=== PATIENT | female | born 1935 | race Caucasian/White ===

== ENCOUNTER 2018-08-09 18:18 | Inpatient (IN) ==
[2018-08-09] MEDS ORDERED: CATAPRES TAB 0.1 MG ONE (18:34)
[2018-08-09] MEDS ORDERED: CATAPRES TAB 0.1 MG PO ONE (18:34)
--- NOTE | 2018-08-09 18:41 | DR.GENAD ---
HPI Time Seen Time Seen by Provider: 08/09/18 18:27 Complaint/Symptoms Chief Complaint Doctors Comments: Patient presents with mom to the ED with complaint of falling a lot, hitting her head, and injuring her back. Her blood pressure has been elevated. She has a history of cardiac stents x 2 and renal stent x1; 2012 and 2005 respectively placed in [place]. Source History Provided: Patient and Family Member Mode of Arrival Mode of Arrival: In [facility] PMH PMH Past Medical History: Coronary Artery Disease, Hypertension and Renal Disease Past Surgical History: Yes Surgical History: Angioplasty/Stents (2012) Social History Does patient currently use any type of tobacco product: No Have you used tobacco products in the last 12 months: No Do you use any recreational Drugs:: No Lives With: Family PE Vital Signs Vitals: Temperature 98.8 F Pulse Rate [Left Radial] 57 Pulse Rate 60 Respiratory Rate 13 Blood Pressure [Right Arm] 172/74 Blood Pressure 193/76 O2 Sat by Pulse Oximetry 95 General Limitations: Physical Limitation General Appearance: Alert and Anxious Head Head Exam: Normal Inspection, Atraumatic and Normocephalic Eyes Eye exam: Normal Appearance, PERRL and EOMI ENT ENT Exam: Normal Exam, Normal Oropharynx and Normal External Ear Exam External Ear Exam: Normal External Inspection and Auricular Hematoma TM/Canal Exam: Bilateral: Normal Nose Exam: Normal Nose Exam, Sinus Tenderness and Nasal Deviation Mouth Exam: Normal Inspection; negative Drooling Throat Exam: Normal Inspection Neck Neck Exam: Normal Inspection and Full ROM Chest Chest Inspection: Normal Inspection Respiratory Respiratory Exam: Normal Lung Sounds Bilat; negative Accessory Muscle Use Respiratory Exam: Bilateral: Clear to Auscultation Cardiovascular Cardiovascular Exam: Regular Rate and Normal Rhythm Abdominal Exam Abdominal Exam: Normal Inspection and Normal Bowel Sounds Abdominal Tenderness: negative RUQ, RLQ and LUQ Extremities Extremities Exam: Normal Inspection, Full ROM and Normal Capillary Refill; negative Edema Back Back Exam: Normal Inspection, Full ROM (decreased ROM), (R) CVA Tenderness, (L) CVA Tenderness and Vertebral Tenderness; negative Tenderness Psychiatric Psychiatric Exam: Normal Affect and Normal Mood Skin Skin Exam: Warm, Dry and Intact COURSE Treatment Treatment: Labetalol per protocol Consultation Called: 20:40 Consultation Comments: Dr. Hayes agreed to admit for further evaluation and treatment Education/Counseling Educated On: Treatment and Diagnosis ROR Labs Reviewed Laboratory Results Reviewed?: Yes Result Diagrams: 08/11/18 05:26 08/11/18 05:26 Laboratory: WBC 6.5 X10^3/uL (3.6-10.0) 08/11/18 05:26 RBC 3.44 X10^6/uL (3.5-5.4) L 08/11/18 05:26 Hgb 11.0 g/dL (12.0-16.0) L 08/11/18 05:26 Hct 30.8 % (36.0-47.0) L 08/11/18 05:26 MCV 89.4 fL (80.0-100.0) 08/11/18 05:26 MCH 32.1 pg (27.0-34.0) 08/11/18 05:26 MCHC 35.9 g/dL (33.0-35.0) H 08/11/18 05:26 RDW 13.0 % (11.6-16.5) 08/11/18 05:26 Plt Count 267 X10^3/uL (150.0-450.0) 08/11/18 05:26 MPV 8.4 fL (7.4-11.0) 08/11/18 05:26 Neut % (Auto) 58.9 % (42.0-75.0) 08/11/18 05:26 Lymph % (Auto) 30.0 % (21.0-51.0) 08/11/18 05:26 [place] % (Auto) 7.2 % (0.0-13.0) 08/11/18 05:26 Eos % (Auto) 3.2 % (0.9-2.9) H 08/11/18 05:26 Baso % (Auto) 0.7 % (0.2-1.0) 08/11/18 05:26 Neut # (Auto) 3.9 x10^3/uL (2.2-4.8) 08/11/18 05:26 Lymph # (Auto) 2.0 X10^3/uL (1.3-2.9) 08/11/18 05:26 [place] # (Auto) 0.5 x10^3/uL (0.3-0.8) 08/11/18 05:26 Eos # (Auto) 0.2 x10^3/uL (0.0-0.2) 08/11/18 05:26 Baso # (Auto) 0.0 X10^3/uL (0.0-0.1) 08/11/18 05:26 Absolute Nucleated RBC 0.0 /100WBC 08/11/18 05:26 Sodium 138 mmol/L (136-145) 08/11/18 05:26 Corrected Sodium 141 mmol/L (136-145) 08/11/18 05:26 Potassium 3.6 mmol/L (3.5-5.1) 08/11/18 05:26 Chloride 105 mmol/L (98-107) 08/11/18 05:26 Carbon Dioxide 18.5 mmol/L (21-32) L 08/11/18 05:26 BUN 13 mg/dL (7-18) 08/11/18 05:26 Creatinine 1.25 mg/dL (0.55-1.02) H 08/11/18 05:26 Est GFR (MDRD) Af Amer 53 (>60) L 08/11/18 05:26 Est GFR (MDRD) Non-Af 43 (>60) L 08/11/18 05:26 Glucose 230 mg/dL (65-99) H 08/11/18 05:26 POC Glucose (mg/dL) 261 mg/dL (65-99) H 08/11/18 06:02 Calcium 8.4 mg/dL (8.5-10.1) L 08/11/18 05:26 Corrected Calcium 9.6 mg/dL (8.5-10.1) 08/11/18 05:26 Magnesium 2.1 mg/dL (1.7-2.9) 08/11/18 05:26 Total Bilirubin 0.20 mg/dL (0.2-1.0) 08/11/18 05:26 AST 14 Units/L (15-37) L 08/11/18 05:26 ALT 23 Units/L (12-78) 08/11/18 05:26 Alkaline Phosphatase 63 Units/L (46-116) 08/11/18 05:26 Creatine Kinase 31 Units/L (26-192) 08/10/18 07:12 CK-MB (CK-2) < 1.0 ng/mL (0-4.0) 08/10/18 07:12 CK/CKMB % Calc 3.2 % (<4) 08/10/18 07:12 Troponin I < 0.02 ng/mL (0-1.5) 08/10/18 07:12 Total Protein 6.2 g/dL (6.4-8.2) L 08/11/18 05:26 Albumin 2.5 g/dL (3.4-5.0) L 08/11/18 05:26 Globulin 3.7 g/dL (2.5-4.5) 08/11/18 05:26 Albumin/Globulin Ratio 0.7 Ratio (1.1-2.1) L 08/11/18 05:26 Specimen Type Clean catch urine 08/09/18 19:12 Urine Color Yellow (YELLOW) 08/09/18 19:12 Urine Appearance Clear (CLEAR) 08/09/18 19:12 Urine pH 6.0 (5.0 - 8.0) 08/09/18 19:12 Ur Specific [place] 1.030 (1.000-1.030) 08/09/18 19:12 Urine Protein 4+ (NEGATIVE) 08/09/18 19:12 Urine Glucose (UA) 4+ (NEGATIVE) 08/09/18 19:12 Urine Ketones Negative (NEGATIVE) 08/09/18 19:12 Urine Occult Blood 1+ (NEGATIVE) 08/09/18 19:12 Urine Nitrite Negative (NEGATIVE) 08/09/18 19:12 Urine Bilirubin Negative (NEGATIVE) 08/09/18 19:12 Urine Urobilinogen Normal (NORMAL) 08/09/18 19:12 Ur Leukocyte Esterase Negative (NEGATIVE) 08/09/18 19:12 Urine RBC 0-2 /HPF (NONE SEEN) 08/09/18 19:12 Urine WBC 0-2 /HPF (NONE SEEN) 08/09/18 19:12 Ur Squamous Epith Cells Rare /HPF (NEGATIVE) 08/09/18 19:12 Amorphous Sediment Trace /HPF (NEGATIVE) 08/09/18 19:12 Urine Bacteria Negative /HPF (NEGATIVE) 08/09/18 19:12 Hyaline Casts Rare /LPF (NEGATIVE) 08/09/18 19:12 Ur Culture Indicated? No/not indicated 08/09/18 19:12 Other Results Comments: CT Brain w/o:Generalized age related atrophic changes are seen. However no evidence of intracranial hemorrhage, extracerebral fluid collections, or intracranial mass. Ventricles are symmetric in size and position with no mass effect seen. Patchy low density is present in a periventricular white matter distribution, consistent with chronic small vessel ischemia. On the bone windows, no acute abnormality is identified. Visualized aspect of the paranasal sinuses and mastoid air cells are clear.. No acute intracranial abnormality is seen on this exam. Portable Chest: Mild COPD is suspected. However no acute cardiopulmonary abnormality is identified on this exam. EKG Bland: Normal Hypertrophy: LAE and LVH (with secondary repolarization abnormality) ADDITIONAL NOTES Additional Notes Additional Notes: Patient admitted to hospital for further management and evaluation.
[2018-08-09] MEDS: NS 1000 ML 1,000 ML IV SCH (18:49)
[2018-08-09 18:58] LABS: BASOPHILS # (AUTO) 0.1 X10^3/uL (0.0-0.1); BASOPHILS % (AUTO) 1.4 % (0.2-1.0); EOSINOPHILS # (AUTO) 0.2 x10^3/uL (0.0-0.2); HEMATOCRIT 36.2 % (36.0-47.0); LYMPHOCYTES # (AUTO) 2.4 X10^3/uL (1.3-2.9); LYMPHOCYTES % (AUTO) 33.4 % (21.0-51.0); MEAN CORPUSCULAR HEMOGLOBIN 31.7 pg (27.0-34.0); MEAN CORPUSCULAR HGB CONC 35.9 g/dL (33.0-35.0); MEAN CORPUSCULAR VOLUME 88.4 fL (80.0-100.0); MONOCYTES # (AUTO) 0.7 x10^3/uL (0.3-0.8); MONOCYTES % (AUTO) 9.3 % (0.0-13.0); NEUTROPHILS # (AUTO) 3.8 x10^3/uL (2.2-4.8); NEUTROPHILS % (AUTO) 52.9 % (42.0-75.0); PLATELET COUNT 336 X10^3/uL (150.0-450.0); RED CELL DISTRIBUTION WIDTH 12.9 % (11.6-16.5); WHITE BLOOD COUNT 7.3 X10^3/uL (3.6-10.0)
--- NOTE | 2018-08-09 19:12 | CT ---
Exam: Head CT without contrast History: 82-year-old female with headache since a fall several days ago. Comparison: None Technique: Axial imaging was performed from the vertex to the base the skull without intravenous cont rast being administered. Sagittal and coronal reformations were generated. Automated exposure control techniques were used for this exam. Findings: Generalized age related atrophic changes are seen. However no evidence of intracranial hemo rrhage, extracerebral fluid collections, or intracranial mass. Ventricles are symmetric in size and p osition with no mass effect seen. Patchy low density is present in a periventricular white matter dis tribution, consistent with chronic small vessel ischemia. On the bone windows, no acute abnormality i s identified. Visualized aspect of the paranasal sinuses and mastoid air cells are clear. Impression: No acute intracranial abnormality is seen on this exam. Chronic changes as noted above Reported By:
[2018-08-09 19:16] LABS: CKMB % 2.1 % (<4); CREATINE KINASE 47 Units/L (26-192); CREATINE KINASE MB < 1.0 ng/mL (0-4.0); TROPONIN I < 0.02 ng/mL (0-1.5)
[2018-08-09] MEDS ORDERED: NORMODYNE INJ 100 MG VIAL ONE ×2 (19:24→20:24)
[2018-08-09 19:25] LABS: BILIRUBIN,URINE NEGATIVE (NEGATIVE); BLOOD/HEMOGLOBIN,URINE 1+ (NEGATIVE); GLUCOSE, URINE 4+ (NEGATIVE); KETONES,URINE NEGATIVE (NEGATIVE); LEUKOCYTE ESTERASE ,URINE NEGATIVE (NEGATIVE); NITRITES,URINE NEGATIVE (NEGATIVE); PROTEIN,URINE 4+ (NEGATIVE); UROBILINOGEN,URINE NORMAL (NORMAL)
[2018-08-09] MEDS: NORMODYNE INJ 20 MG VIAL IVP PRN ×2 (19:28→20:15)
[2018-08-09 19:34] LABS: APPEARANCE,URINE CLEAR (CLEAR); COLOR,URINE YELLOW (YELLOW)
[2018-08-09 19:36] LABS: RBC,URINE 0-2 /HPF (NONE SEEN)
[2018-08-09 19:37] LABS: AMORPHOUS SEDIMENT,UR TRACE /HPF (NEGATIVE); BACTERIA,URINE NEGATIVE /HPF (NEGATIVE); HYALINE CASTS, URINE RARE /LPF (NEGATIVE); SQUAMOUS EPITHELIAL CELL,UR RARE /HPF (NEGATIVE)
[2018-08-09] MEDS ORDERED: NS 250 ML IV 250 ML IV ONE (20:22)
[2018-08-09] MEDS: NORMODYNE INJ 100 MG VIAL 250 MG in NS 250 ML IV 200 ML IV PRN (20:34)
[2018-08-09] MEDS ORDERED: MORPHINE SULFATE INJ 2 MG INJ IVP PRN ×2 (20:42→21:00)
--- NOTE | 2018-08-09 20:45 | RAD ---
Exam: Portable chest History: 82-year-old female with hypertension and COPD Comparison: None Findings: Heart size and pulmonary vasculature are normal. Lungs are clear with no infiltrate or significant ef fusion on either side. Mild hyperinflation is present suggestive of underlying COPD. Bony thorax is u nremarkable. Impression: Mild COPD is suspected. However no acute cardiopulmonary abnormality is identified on this exam Reported By:
[2018-08-09] MEDS ORDERED: NORMODYNE INJ 20 MG VIAL IV PRN (20:58)
[2018-08-09 21:13] LABS: ALANINE AMINOTRANSFERASE 29 Units/L (12-78); ALBUMIN 3.5 g/dL (3.4-5.0); ALKALINE PHOSPHATASE 88 Units/L (46-116); ASPARTATE AMINO TRANSFERASE 18 Units/L (15-37); BLOOD UREA NITROGEN 20 mg/dL (7-18); CARBON DIOXIDE 23.5 mmol/L (21-32); CHLORIDE 97 mmol/L (98-107); COR NA(FOR HYPERGLY) 139 mmol/L (136-145); CREATININE 1.57 mg/dL (0.55-1.02); SODIUM 134 mmol/L (136-145); TOTAL PROTEIN 7.6 g/dL (6.4-8.2); eGFR NON BLACK RACES 33 (>60)
--- NOTE | 2018-08-09 21:41 | CT ---
CT lumbar spine without contrast Indication: Fall, back pain Comparison: None Technique: CT images of the lumbar spine were obtained without contrast. Automatic exposure control w as utilized. Findings: Generalized osteopenia. The lumbar spine alignment is normal. No significant vertebral body height loss or acute cortical disruption is identified. There is advanced discogenic degenerative di sease at L5-S1. No high-grade osseous spinal canal or neural foraminal narrowing is observed. There is small nonobstructing left renal calculus. Marked aortoiliac atherosclerosis with infrarenal aortic ectasia. Impression: No acute osseous abnormality of the lumbar spine. Degenerative changes at L5-S1. Generalized osteopenia. Nonobstructing left nephrolithiasis. Reported By:
[2018-08-09 22:52] VITALS: BMI 20.3
[2018-08-10] MEDS: NORMODYNE INJ 100 MG VIAL 250 MG in NS 250 ML IV 200 ML IV PRN ×5 (00:36→20:22)
[2018-08-10] MEDS: HumuLIN R SUBCUT PRN ×5 (00:38→21:22)
[2018-08-10 02:00] LABS: CKMB % 1.8 % (<4); CREATINE KINASE 57 Units/L (26-192); CREATINE KINASE MB < 1.0 ng/mL (0-4.0); TROPONIN I < 0.02 ng/mL (0-1.5)
[2018-08-10] MEDS: NS 1000 ML 1,000 ML IV SCH ×3 (05:15→23:00)
[2018-08-10 07:46] LABS: BASOPHILS % (AUTO) 0.7 % (0.2-1.0); EOSINOPHILS # (AUTO) 0.1 x10^3/uL (0.0-0.2); EOSINOPHILS % (AUTO) 2.4 % (0.9-2.9); HEMATOCRIT 31.2 % (36.0-47.0); HEMOGLOBIN 10.9 g/dL (12.0-16.0); LYMPHOCYTES % (AUTO) 33.5 % (21.0-51.0); MEAN CORPUSCULAR HEMOGLOBIN 31.2 pg (27.0-34.0); MEAN CORPUSCULAR HGB CONC 35.1 g/dL (33.0-35.0); MEAN CORPUSCULAR VOLUME 88.8 fL (80.0-100.0); MONOCYTES # (AUTO) 0.6 x10^3/uL (0.3-0.8); MONOCYTES % (AUTO) 10.1 % (0.0-13.0); NEUTROPHILS # (AUTO) 3.2 x10^3/uL (2.2-4.8); NEUTROPHILS % (AUTO) 53.3 % (42.0-75.0); PLATELET COUNT 269 X10^3/uL (150.0-450.0); RED BLOOD COUNT 3.51 X10^6/uL (3.5-5.4); RED CELL DISTRIBUTION WIDTH 12.7 % (11.6-16.5)
[2018-08-10 08:05] LABS: ALBUMIN 2.6 g/dL (3.4-5.0); CALCIUM 8.5 mg/dL (8.5-10.1); CARBON DIOXIDE 22.6 mmol/L (21-32); COR CA(FOR HYPOALB) 9.6 mg/dL (8.5-10.1); CREATININE 1.33 mg/dL (0.55-1.02); MAGNESIUM 1.4 mg/dL (1.7-2.9); TOTAL PROTEIN 5.8 g/dL (6.4-8.2)
[2018-08-10 08:07] LABS: CREATINE KINASE 31 Units/L (26-192); CREATINE KINASE MB < 1.0 ng/mL (0-4.0); TROPONIN I < 0.02 ng/mL (0-1.5)
[2018-08-10] MEDS ORDERED: POTASSIUM CHL 60 MEQ/NS 0.45% 500 ML IV PRN (08:09)
[2018-08-10] MEDS ORDERED: K-RIDER 10 MEQ/NS 100 ML 10 MEQ/100 ML BAG IV PRN (08:09)
[2018-08-10] MEDS ORDERED: POTASSIUM CHL 40 MEQ/NS 0.45% 500 ML IV PRN (08:09)
[2018-08-10] MEDS ORDERED: KLOR-CON PO PRN (08:09)
[2018-08-10] MEDS ORDERED: POTASSIUM CHLORIDE LIQ 20 MEQ UDC PO PRN (08:09)
[2018-08-10 08:11] LABS: CKMB % 3.2 % (<4)
[2018-08-10] MEDS ORDERED: NS 500 ML IV 500 ML IV ONE (09:16)
[2018-08-10] MEDS: NS 500 ML IV 500 ML IV SCH (09:23)
[2018-08-10] MEDS: MAGNESIUM SULFATE 1 GRAM/100 mL PREMIX 1 GM/100 ML BAG IV PRN ×4 (09:24→13:02)
[2018-08-10] MEDS: K-DUR TAB 20 MEQ PO PRN (09:34)
[2018-08-10 12:03] LABS: HEMATOCRIT 29.6 % (36.0-47.0); HEMOGLOBIN 10.6 g/dL (12.0-16.0)
[2018-08-10] MEDS: NORVASC TAB 5 MG PO SCH (15:08)
[2018-08-10] MEDS: COZAAR PO SCH (15:08)
[2018-08-10 17:56] LABS: HEMATOCRIT 31.7 % (36.0-47.0); HEMOGLOBIN 11.1 g/dL (12.0-16.0)
[2018-08-10] MEDS: SNACK - Diabetic Appropriate PO SCH (20:00)
[2018-08-10] MEDS: COREG TAB 6.25 MG PO SCH (21:22)
[2018-08-10] MEDS ORDERED: NORMODYNE INJ 100 MG VIAL ONE (23:40)
[2018-08-11] MEDS: NORMODYNE INJ 100 MG VIAL 250 MG in NS 250 ML IV 200 ML IV PRN ×3 (00:25→19:52)
[2018-08-11] MEDS ORDERED: NS 250 ML IV 250 ML IV ONE (05:29)
[2018-08-11 06:16] LABS: BASOPHILS % (AUTO) 0.7 % (0.2-1.0); EOSINOPHILS # (AUTO) 0.2 x10^3/uL (0.0-0.2); EOSINOPHILS % (AUTO) 3.2 % (0.9-2.9); HEMATOCRIT 30.8 % (36.0-47.0); MEAN CORPUSCULAR HEMOGLOBIN 32.1 pg (27.0-34.0); MEAN CORPUSCULAR HGB CONC 35.9 g/dL (33.0-35.0); MEAN CORPUSCULAR VOLUME 89.4 fL (80.0-100.0); MEAN PLATELET VOLUME 8.4 fL (7.4-11.0); MONOCYTES # (AUTO) 0.5 x10^3/uL (0.3-0.8); MONOCYTES % (AUTO) 7.2 % (0.0-13.0); NEUTROPHILS # (AUTO) 3.9 x10^3/uL (2.2-4.8); NEUTROPHILS % (AUTO) 58.9 % (42.0-75.0); PLATELET COUNT 267 X10^3/uL (150.0-450.0); RED BLOOD COUNT 3.44 X10^6/uL (3.5-5.4); WHITE BLOOD COUNT 6.5 X10^3/uL (3.6-10.0)
[2018-08-11 06:23] LABS: ALBUMIN 2.5 g/dL (3.4-5.0); CALCIUM 8.4 mg/dL (8.5-10.1); CARBON DIOXIDE 18.5 mmol/L (21-32); COR CA(FOR HYPOALB) 9.6 mg/dL (8.5-10.1); CREATININE 1.25 mg/dL (0.55-1.02); MAGNESIUM 2.1 mg/dL (1.7-2.9); TOTAL PROTEIN 6.2 g/dL (6.4-8.2)
[2018-08-11] MEDS: HumuLIN R SUBCUT PRN (06:23)
[2018-08-11] MEDS ORDERED: GLUCOPHAGE ONE ×2 (08:06→21:11)
[2018-08-11] MEDS: ELAVIL PO SCH (08:21)
[2018-08-11] MEDS: FOLIC ACID TAB 1 MG PO SCH (08:21)
[2018-08-11] MEDS: GLUCOPHAGE PO SCH ×2 (08:22→21:34)
[2018-08-11] MEDS: COREG TAB 6.25 MG PO SCH ×2 (08:22→21:34)
[2018-08-11] MEDS: GLUCOTROL PO SCH ×2 (08:22→21:33)
[2018-08-11] MEDS: ASPIRIN 81 MG CHEWTAB PO SCH (08:22)
[2018-08-11] MEDS: NexIUM PO SCH ×2 (08:22→21:34)
[2018-08-11] MEDS: COZAAR PO SCH (08:22)
[2018-08-11] MEDS: NORVASC TAB 5 MG PO SCH ×2 (08:23→11:13)
[2018-08-11] MEDS ORDERED: LANTUS SC SCH (09:00)
[2018-08-11] MEDS ORDERED: CATAPRES-TTS-1 TD SCH (10:00)
--- NOTE | 2018-08-11 10:52 | DR.H&P ---
H&P - History & Physical for Day of: H&P Date: 08/09/18 - Chief Complaint Chief Complaint: FALLS, WEAKNESS, HTN - History of Present Illness History of Present Illness: IS A 82 YEAR OLD PATIENT OF . SHE PRESENTED TO THE ER WITH COMPLAINTS OF FREQUENT FALLS. ON THE MOST RECENT FALL, DAUGHTER REPORTS HITTING HER HEAD AND INJURING HER LOWER BACK. FAMILY REPORTS THAT HER BLOOD PRESSURE HAS BEEN ELEVATED. PATIENT HAS A HISTORY OF CARDIAC STENTS X 2, CAD, HYPERTENSION, AND RENAL DISEASE. ON ARRIVAL, VITALS WERE 97.8-83-18-98%-213/101. LABS WERE OBTAINED. ABNORMAL LAB VALUES INCLUDE THE FOLLOWING: BUN 19, CREATININE 1.33, GLUCOSE 219, MAGNESIUM 1.4, TOTAL PROTEIN 5.8, ALBUMIN 2.6. A BRAIN CT WAS OBTAINED AND REVEALED: Generalized age related atrophic changes are seen. However no evidence of intracranial hemorrhage, ex tracerebral fluid collections, or intracranial mass. Ventricles are symmetric in size and position with no mass effect seen. Patchy low density is present in a periventricular white matter distribution, consistent with chronic small vessel ischemia. On the bone windows, no acute abnormality is identified. Visualized aspect of the paranasal sinuses and mastoid air cells are clear. CHEST XRAY REVEALED: Mild COPD is suspected. However no acute cardiopulmonary abnormality is identified on this exam. LUMBAR SPINE CT OBTAINED AND REVEALED: No acute osseous abnormality of the lumbar spine. Degenerative changes at L5-S1. Generalized osteopenia. Nonobstructing left nephrolithiasis. EKG REVEALED: SINUS RHYTHM WITH HR 78. SHE WAS STARTED ON A LABETALOL DRIP AND ADMITTED TO THE HOSPITAL FOR FURTHER EVALUATION AND TREATMENT. SHE WAS ALSO STARTED ON NORMAL SALINE AT 75ML/HR AND HUMULIN R SLIDING SCALE FOR CONTROL OF GLUCOSE LEVELS. OTHERWISE, WE PLAN TO FOLLOW UP WITH AM LABS AND CONTINUE TO MONITOR PATIENT. - Past Medical History Past Medical History: Coronary Artery Disease, Hypertension, Renal Disease - Past Surgical History Surgical History: Angioplasty/Stents (2012) - Family History Family Medical History: Diabetes Mellitus, Cancer - Social History Does patient currently use any type of tobacco product: No Have you used tobacco products in the last 12 months: No Type of Tobacco Use: None Does any household member use tobacco: Yes Alcohol Use: None Drug Use: None - Medications Home Medications: codeine Allergy (Verified 08/09/18 18:19) meperidine [From Demerol] Allergy (Verified 08/09/18 18:19) CONTINUE taking the following medications amitriptyline 10 mg PO DAILY 08/10/18 [History] aspirin 81 mg PO DAILY 08/10/18 [History] atorvastatin [Lipitor] 40 mg PO HS 08/10/18 [History] carvedilol 25 mg PO BID 08/10/18 [History] celecoxib [Celebrex] 200 mg PO DAILY 08/10/18 [History] esomeprazole magnesium [Nexium] 40 mg PO BID 08/10/18 [History] folic acid 1 mg PO DAILY 08/10/18 [History] glipizide 5 mg PO BID 08/10/18 [History] insulin glargine [Lantus U-100 Insulin] 45 units SUBCUT BID 08/10/18 [History] losartan 50 mg PO DAILY 08/10/18 [History] metformin [Glucophage] 1,000 mg PO BID 08/10/18 [History] - Review of Systems Constitutional: See HPI, Weakness Eyes: No Symptoms Reported ENT: No Symptoms Reported Respiratory: No Symptoms Reported Cardiovascular: Light Headedness Gastrointestinal: No Symptoms Reported Genitourinary: No Symptoms Reported Musculoskeletal: Back Pain (LOWER BACK PAIN ) Skin: Bruising (SCATTERED BRUISING ) Neurological: See HPI, Weakness - Physical Exam Vital Signs: Temperature 98.8 F Pulse Rate [Left Radial] 57 Pulse Rate 61 Respiratory Rate 17 Blood Pressure [Right Arm] 172/74 Blood Pressure 172/94 O2 Sat by Pulse Oximetry 97 Oriented: Normal Eyes: Normal Ear: Normal Nose: Normal Throat: Normal Respiratory: Diminished Throughout Cardiovascular: Normal. negative: S3, S4, Murmur : Normal Auscultation: Bowel Sounds: Normal Palpation: Normal Tenderness: Normal Skin: Bruising (SCATTERED BRUISING ) Musculoskeletal: Back:Lumbar, Tender Psychiatric: Normal Mood Description: Calm Affect: Normal Speech Pattern: Clear - Assessment/Plan (1) Hypertension Qualifiers: Hypertension type: essential hypertension Qualified Code(s): I10 - Essential (primary) hypertension Status: Acute Plan: LABETALOL DRIP, HEATING UNIT INSTALLER, NIBP MONITORING, CONTINUE TO MONITOR (2) Falls Qualifiers: Encounter type: initial encounter Qualified Code(s): W19.XXXA - Unspecified fall, initial encounter Status: Acute Plan: PT CONSULT, CONTINUE TO MONITOR (3) Diabetes Qualifiers: Diabetes mellitus type: type 2 Diabetes mellitus chcf insulin use: with terminal system operator use Diabetes mellitus complication status: with hyperglycemia Qualified Code(s): E11.65 - Type 2 diabetes mellitus with hyperglycemia; Z79.4 - care home (current) use of insulin Status: Acute Plan: HUMULIN R SLIDING SCALE, LANTUS 36 UNITS BID, GLUCATROL, GLUCOPHAGE, MONITOR OTBS - Allergies Allergies/Adverse Reactions: Allergies Allergy/AdvReac Type Severity Reaction Status Date / Time codeine Allergy Verified 08/09/18 18:19 meperidine [From Demerol] Allergy Verified 08/09/18 18:19
[2018-08-11] MEDS: LANTUS SC SCH ×2 (11:12→21:36)
[2018-08-11] MEDS: NS 500 ML IV 500 ML IV SCH (11:14)
[2018-08-11] MEDS: NS 1000 ML 1,000 ML IV SCH (13:00)
[2018-08-11] MEDS ORDERED: FLUVIRIN IM ONE (16:16)
[2018-08-11] MEDS ORDERED: PREVNAR 13 IM ONE (16:16)
[2018-08-11] MEDS: MICRO K EXTEN CAP 10 MEQ PO PRN (16:53)
[2018-08-11] MEDS: SNACK - Diabetic Appropriate PO SCH (20:00)
[2018-08-11] MEDS ORDERED: SNACK - Diabetic Appropriate PO SCH (20:00)
[2018-08-11] MEDS: LIPITOR TAB 40 MG PO SCH (21:34)
--- NOTE | 2018-08-11 21:38 | PCM.PROG ---
Progress Note - Progress Note for Day of Date of Exam: 08/10/18 - Subjective Subjective: WAS ADMITTED FOR HYPERTENSIVE URGENCY AND GENERALIZED WEAKNESS. TODAY, SHE IS ALERT AND ORIENTED, LYING IN BED ON MORNING ROUNDS. SHE CONTINUES WITH GENERALIZED WEAKNESS. SHE REMAINS ON A LABETALOL DRIP THIS MORNING. ON EXAMINATION, HEART IS REGULAR IN RATE AND RHYTHM. BILATERAL LUNGS ARE NOTED WITH DIMINISHED LUNG SOUNDS THROUGHOUT. ABDOMEN IS ROUND, SOFT, AND NON-TENDER WITH NORMAL BOWEL SOUNDS NOTED IN ALL QUADRANTS. HER VITLAS THIS MORNING ARE 97.0-60+-18-98%NC-183/72. LABS WERE OBTAINED. ABNORMAL LAB VALUES INCLUDE THE FOLLOWING: HGB 10.9, HCT 31.2, BUN 19, CREATININE 1.33, GLUCOSE 219, MAGNESIUM 1.4, TOTAL PROTEIN 5.8, ALBUMIN 2.6. TODAY, WE WILL START AMLODIPINE 5MG PO DAILY, COREG 6.25MG PO BID, AND LOSARTAN 100MG DAILY. OTHERWISE, WE WILL CONTINUE WITH CURRENT PLAN OF CARE. WE WILL CONTINUE TO MONITOR BLOOD GLUCOSE LEVELS AND REPLACE HER POTASSIUM WITH THE PROTOCOL. OTHERWISE, WE WILL FOLLOW UP WITH AM LABS AND CONTINUE TO MONITOR NIBP. - Past Medical Family Social History Past Med/Fam/Surg Hx: No changes since H&P Allergies: Allergies codeine Allergy (Verified 08/09/18 18:19) meperidine [From Demerol] Allergy (Verified 08/09/18 18:19) - Review of Systems ROS: No change since H&P - Vital Signs and I&O's Vital Signs: Temperature 99.5 F Pulse Rate [Left Radial] 57 Pulse Rate 64 Respiratory Rate 17 Blood Pressure [Right Arm] 172/74 Blood Pressure 162/73 O2 Sat by Pulse Oximetry 93 Intake and Output: Intake & Output 08/09/18 08/10/18 08/11/18 08/12/18 11:59 11:59 11:59 11:59 Intake Total 2102 / 2102 4423 / 4423 1544 / 1544 Output Total 450 / 450 800 / 800 400 / 400 Balance 1652 / 1652 3623 / 3623 1144 / 1144 - Physical Exam Oriented: Normal Eyes: Normal Ear: Normal Nose: Normal Throat: Normal Respiratory: Generalized, Diminished Cardiovascular: Normal. negative: S3, S4, Murmur : Normal Auscultation: Bowel Sounds: Normal Palpation: Normal Tenderness: Normal Skin: Bruising (SCATTERED BRUISING ) Musculoskeletal: Back:Lumbar, Tender Psychiatric: Normal Mood Description: Calm Affect: Normal Speech Pattern: Clear, Appropriate - Laboratory and Diagnostics Result Diagrams: 08/11/18 05:26 08/11/18 05:26 Labs: Laboratory WBC 6.5 X10^3/uL (3.6-10.0) 08/11/18 05:26 RBC 3.44 X10^6/uL (3.5-5.4) L 08/11/18 05:26 Hgb 11.0 g/dL (12.0-16.0) L 08/11/18 05:26 Hct 30.8 % (36.0-47.0) L 08/11/18 05:26 MCV 89.4 fL (80.0-100.0) 08/11/18 05:26 MCH 32.1 pg (27.0-34.0) 08/11/18 05:26 MCHC 35.9 g/dL (33.0-35.0) H 08/11/18 05:26 RDW 13.0 % (11.6-16.5) 08/11/18 05:26 Plt Count 267 X10^3/uL (150.0-450.0) 08/11/18 05:26 MPV 8.4 fL (7.4-11.0) 08/11/18 05:26 Neut % (Auto) 58.9 % (42.0-75.0) 08/11/18 05:26 Lymph % (Auto) 30.0 % (21.0-51.0) 08/11/18 05:26 [place] % (Auto) 7.2 % (0.0-13.0) 08/11/18 05:26 Eos % (Auto) 3.2 % (0.9-2.9) H 08/11/18 05:26 Baso % (Auto) 0.7 % (0.2-1.0) 08/11/18 05:26 Neut # (Auto) 3.9 x10^3/uL (2.2-4.8) 08/11/18 05:26 Lymph # (Auto) 2.0 X10^3/uL (1.3-2.9) 08/11/18 05:26 [place] # (Auto) 0.5 x10^3/uL (0.3-0.8) 08/11/18 05:26 Eos # (Auto) 0.2 x10^3/uL (0.0-0.2) 08/11/18 05:26 Baso # (Auto) 0.0 X10^3/uL (0.0-0.1) 08/11/18 05:26 Absolute Nucleated RBC 0.0 /100WBC 08/11/18 05:26 Sodium 138 mmol/L (136-145) 08/11/18 05:26 Corrected Sodium 141 mmol/L (136-145) 08/11/18 05:26 Potassium 3.6 mmol/L (3.5-5.1) 08/11/18 05:26 Chloride 105 mmol/L (98-107) 08/11/18 05:26 Carbon Dioxide 18.5 mmol/L (21-32) L 08/11/18 05:26 BUN 13 mg/dL (7-18) 08/11/18 05:26 Creatinine 1.25 mg/dL (0.55-1.02) H 08/11/18 05:26 Est GFR (MDRD) Af Amer 53 (>60) L 08/11/18 05:26 Est GFR (MDRD) Non-Af 43 (>60) L 08/11/18 05:26 Glucose 230 mg/dL (65-99) H 08/11/18 05:26 POC Glucose (mg/dL) 136 mg/dL (65-99) H 08/11/18 16:31 Calcium 8.4 mg/dL (8.5-10.1) L 08/11/18 05:26 Corrected Calcium 9.6 mg/dL (8.5-10.1) 08/11/18 05:26 Magnesium 2.1 mg/dL (1.7-2.9) 08/11/18 05:26 Total Bilirubin 0.20 mg/dL (0.2-1.0) 08/11/18 05:26 AST 14 Units/L (15-37) L 08/11/18 05:26 ALT 23 Units/L (12-78) 08/11/18 05:26 Alkaline Phosphatase 63 Units/L (46-116) 08/11/18 05:26 Creatine Kinase 31 Units/L (26-192) 08/10/18 07:12 CK-MB (CK-2) < 1.0 ng/mL (0-4.0) 08/10/18 07:12 CK/CKMB % Calc 3.2 % (<4) 08/10/18 07:12 Troponin I < 0.02 ng/mL (0-1.5) 08/10/18 07:12 Total Protein 6.2 g/dL (6.4-8.2) L 08/11/18 05:26 Albumin 2.5 g/dL (3.4-5.0) L 08/11/18 05:26 Globulin 3.7 g/dL (2.5-4.5) 08/11/18 05:26 Albumin/Globulin Ratio 0.7 Ratio (1.1-2.1) L 08/11/18 05:26 Specimen Type Clean catch urine 08/09/18 19:12 Urine Color Yellow (YELLOW) 08/09/18 19:12 Urine Appearance Clear (CLEAR) 08/09/18 19:12 Urine pH 6.0 (5.0 - 8.0) 08/09/18 19:12 Ur Specific [place] 1.030 (1.000-1.030) 08/09/18 19:12 Urine Protein 4+ (NEGATIVE) 08/09/18 19:12 Urine Glucose (UA) 4+ (NEGATIVE) 08/09/18 19:12 Urine Ketones Negative (NEGATIVE) 08/09/18 19:12 Urine Occult Blood 1+ (NEGATIVE) 08/09/18 19:12 Urine Nitrite Negative (NEGATIVE) 08/09/18 19:12 Urine Bilirubin Negative (NEGATIVE) 08/09/18 19:12 Urine Urobilinogen Normal (NORMAL) 08/09/18 19:12 Ur Leukocyte Esterase Negative (NEGATIVE) 08/09/18 19:12 Urine RBC 0-2 /HPF (NONE SEEN) 08/09/18 19:12 Urine WBC 0-2 /HPF (NONE SEEN) 08/09/18 19:12 Ur Squamous Epith Cells Rare /HPF (NEGATIVE) 08/09/18 19:12 Amorphous Sediment Trace /HPF (NEGATIVE) 08/09/18 19:12 Urine Bacteria Negative /HPF (NEGATIVE) 08/09/18 19:12 Hyaline Casts Rare /LPF (NEGATIVE) 08/09/18 19:12 Ur Culture Indicated? No/not indicated 08/09/18 19:12 - Plan (1) Hypertension Status: Acute Qualifiers: Hypertension type: essential hypertension Qualified Code(s): I10 - Essential (primary) hypertension Plan: AMLODIPINE 5MG PO DAILY, COREG 6.25MG PO BID, AND LOSARTAN 100MG DAILY, AIR/OCEAN EXPORT CLERK, NIBP MONITORING, CONTINUE TO MONITOR (2) Falls Status: Acute Qualifiers: Encounter type: initial encounter Qualified Code(s): W19.XXXA - Unspecified fall, initial encounter Plan: PT CONSULT, CONTINUE TO MONITOR (3) Diabetes Status: Acute Qualifiers: Diabetes mellitus type: type 2 Diabetes mellitus half-way insulin use: with vermin exterminator use Diabetes mellitus complication status: with hyperglycemia Qualified Code(s): E11.65 - Type 2 diabetes mellitus with hyperglycemia; Z79.4 - long term care social worker (current) use of insulin Plan: HUMULIN R SLIDING SCALE, LANTUS 36 UNITS BID, GLUCATROL, GLUCOPHAGE, MONITOR OTBS (4) Hypomagnesemia Status: Acute Plan: MAGNESIUM REPLACEMENT WITH PROTOCOL
[2018-08-12] MEDS: NS 1000 ML 1,000 ML IV SCH ×2 (03:00→18:20)
[2018-08-12 06:21] LABS: BASOPHILS # (AUTO) 0.1 X10^3/uL (0.0-0.1); BASOPHILS % (AUTO) 0.8 % (0.2-1.0); EOSINOPHILS # (AUTO) 0.2 x10^3/uL (0.0-0.2); HEMATOCRIT 28.7 % (36.0-47.0); HEMOGLOBIN 10.1 g/dL (12.0-16.0); LYMPHOCYTES % (AUTO) 27.3 % (21.0-51.0); MEAN CORPUSCULAR HEMOGLOBIN 31.6 pg (27.0-34.0); MEAN CORPUSCULAR HGB CONC 35.1 g/dL (33.0-35.0); MEAN CORPUSCULAR VOLUME 89.9 fL (80.0-100.0); MEAN PLATELET VOLUME 8.3 fL (7.4-11.0); MONOCYTES # (AUTO) 0.7 x10^3/uL (0.3-0.8); MONOCYTES % (AUTO) 9.3 % (0.0-13.0); NEUTROPHILS # (AUTO) 4.5 x10^3/uL (2.2-4.8); NEUTROPHILS % (AUTO) 59.6 % (42.0-75.0); PLATELET COUNT 245 X10^3/uL (150.0-450.0); RED BLOOD COUNT 3.19 X10^6/uL (3.5-5.4); RED CELL DISTRIBUTION WIDTH 13.3 % (11.6-16.5); WHITE BLOOD COUNT 7.5 X10^3/uL (3.6-10.0)
[2018-08-12 06:45] LABS: ALANINE AMINOTRANSFERASE 21 Units/L (12-78); ALBUMIN 2.3 g/dL (3.4-5.0); ALKALINE PHOSPHATASE 57 Units/L (46-116); ASPARTATE AMINO TRANSFERASE 14 Units/L (15-37); BLOOD UREA NITROGEN 8 mg/dL (7-18); CALCIUM 8.3 mg/dL (8.5-10.1); CARBON DIOXIDE 17.6 mmol/L (21-32); CHLORIDE 109 mmol/L (98-107); COR CA(FOR HYPOALB) 9.7 mg/dL (8.5-10.1); CREATININE 1.08 mg/dL (0.55-1.02); SODIUM 140 mmol/L (136-145); TOTAL PROTEIN 5.7 g/dL (6.4-8.2); eGFR NON BLACK RACES 51 (>60)
[2018-08-12] MEDS ORDERED: GLUCOPHAGE ONE ×2 (08:44→20:15)
[2018-08-12] MEDS: MICRO K EXTEN CAP 10 MEQ PO PRN (08:47)
[2018-08-12] MEDS: ELAVIL PO SCH (08:47)
[2018-08-12] MEDS: GLUCOPHAGE PO SCH ×2 (08:47→20:40)
[2018-08-12] MEDS: COZAAR PO SCH (08:48)
[2018-08-12] MEDS: ASPIRIN 81 MG CHEWTAB PO SCH (08:48)
[2018-08-12] MEDS: NexIUM PO SCH ×2 (08:48→20:40)
[2018-08-12] MEDS: FOLIC ACID TAB 1 MG PO SCH (08:48)
[2018-08-12] MEDS: COREG TAB 6.25 MG PO SCH ×2 (08:48→20:40)
[2018-08-12] MEDS: GLUCOTROL PO SCH ×2 (08:48→20:40)
[2018-08-12] MEDS: LANTUS SC SCH ×2 (08:49→21:01)
[2018-08-12] MEDS: NORVASC TAB 5 MG PO SCH (08:49)
[2018-08-12] MEDS: CHECK PATCH XX SCH ×2 (08:54→21:00)
[2018-08-12] MEDS ORDERED: CATAPRES-TTS-2 TD SCH (11:00)
[2018-08-12] MEDS: MAGNESIUM SULFATE 1 GRAM/100 mL PREMIX 1 GM/100 ML BAG IV PRN ×2 (20:40→22:00)
[2018-08-12] MEDS: LIPITOR TAB 40 MG PO SCH (20:40)
[2018-08-12] MEDS: SNACK - Diabetic Appropriate PO SCH (20:45)
[2018-08-12] MEDS: K-DUR TAB 20 MEQ PO PRN (20:47)
--- NOTE | 2018-08-12 21:33 | PCM.PROG ---
Progress Note - Progress Note for Day of Date of Exam: 08/11/18 - Subjective Subjective: WAS ADMITTED FOR HYPERTENSIVE URGENCY AND GENERALIZED WEAKNESS. TODAY, SHE IS ALERT AND ORIENTED, LYING IN BED ON MORNING ROUNDS. SHE CONTINUES WITH GENERALIZED WEAKNESS. THE LABETALOL DRIP WAS DISCONTINUED YESTERDAY AND SHE WAS STARTED ON ORAL HYPERTENSIVES. SHE HAS CONTINUED TO BE HYPERTENSIVE THROUGHOUT THE NIGHT. ON EXAMINATION, HEART IS REGULAR IN RATE AND RHYTHM. BILATERAL LUNGS ARE NOTED WITH DIMINISHED LUNG SOUNDS THROUGHOUT. ABDOMEN IS ROUND, SOFT, AND NON-TENDER WITH NORMAL BOWEL SOUNDS NOTED IN ALL QUADRANTS. HER VITLAS THIS MORNING ARE 97.0-64-24-97%-172/94. LABS WERE OBTAINED. ABNORMAL LAB VALUES INCLUDE THE FOLLOWING: RBC 3.44, HGB 11.0, HCT 30.8, CARBON DIXOIDE 18.5, CREATININE 1.25, GLUCOSE 230, CALCIUM 8.4, TOTAL PROTEIN 6.2, ALBUMIN 2.5. TODAY, WE WILL INCREASE AMLODIPINE TO 10MG PO DAILY AND ADD A CLONIDINE 0.1MG PATCH. OTHERWISE, WE WILL CONTINUE WITH CURRENT PLAN OF CARE. WE WILL FOLLOW UP WITH AM LABS AND CONTINUE TO MONITOR NIBP. - Past Medical Family Social History Past Med/Fam/Surg Hx: No changes since H&P Allergies: Allergies codeine Allergy (Verified 08/09/18 18:19) meperidine [From Demerol] Allergy (Verified 08/09/18 18:19) - Review of Systems ROS: No change since H&P - Vital Signs and I&O's Vital Signs: Temperature 98.5 F Pulse Rate [Left Radial] 57 Pulse Rate 69 Respiratory Rate 21 Blood Pressure [Right Arm] 172/74 Blood Pressure 160/71 O2 Sat by Pulse Oximetry 97 Intake and Output: Intake & Output 08/10/18 08/11/18 08/12/18 08/13/18 11:59 11:59 11:59 11:59 Intake Total 2102 / 2102 4423 / 4423 2992 / 2992 1760 / 1760 Output Total 450 / 450 800 / 800 900 / 900 Balance 1652 / 1652 3623 / 3623 2092 / 209 176 / 1760 - Physical Exam Oriented: Normal Eyes: Normal Ear: Normal Nose: Normal Throat: Normal Respiratory: Generalized, Diminished Cardiovascular: Normal. negative: S3, S4, Murmur : Normal Auscultation: Bowel Sounds: Normal Palpation: Normal Tenderness: Normal Skin: Bruising (SCATTERED BRUISING ) Musculoskeletal: Back:Lumbar, Tender Psychiatric: Normal Mood Description: Calm Affect: Normal Speech Pattern: Clear, Appropriate - Laboratory and Diagnostics Result Diagrams: 08/12/18 05:25 08/12/18 05:25 Labs: Laboratory WBC 7.5 X10^3/uL (3.6-10.0) 08/12/18 05:25 RBC 3.19 X10^6/uL (3.5-5.4) L 08/12/18 05:25 Hgb 10.1 g/dL (12.0-16.0) L 08/12/18 05:25 Hct 28.7 % (36.0-47.0) L 08/12/18 05:25 MCV 89.9 fL (80.0-100.0) 08/12/18 05:25 MCH 31.6 pg (27.0-34.0) 08/12/18 05:25 MCHC 35.1 g/dL (33.0-35.0) H 08/12/18 05:25 RDW 13.3 % (11.6-16.5) 08/12/18 05:25 Plt Count 245 X10^3/uL (150.0-450.0) 08/12/18 05:25 MPV 8.3 fL (7.4-11.0) 08/12/18 05:25 Neut % (Auto) 59.6 % (42.0-75.0) 08/12/18 05:25 Lymph % (Auto) 27.3 % (21.0-51.0) 08/12/18 05:25 [place] % (Auto) 9.3 % (0.0-13.0) 08/12/18 05:25 Eos % (Auto) 3.0 % (0.9-2.9) H 08/12/18 05:25 Baso % (Auto) 0.8 % (0.2-1.0) 08/12/18 05:25 Neut # (Auto) 4.5 x10^3/uL (2.2-4.8) 08/12/18 05:25 Lymph # (Auto) 2.0 X10^3/uL (1.3-2.9) 08/12/18 05:25 [place] # (Auto) 0.7 x10^3/uL (0.3-0.8) 08/12/18 05:25 Eos # (Auto) 0.2 x10^3/uL (0.0-0.2) 08/12/18 05:25 Baso # (Auto) 0.1 X10^3/uL (0.0-0.1) 08/12/18 05:25 Absolute Nucleated RBC 0.0 /100WBC 08/12/18 05:25 Sodium 140 mmol/L (136-145) 08/12/18 05:25 Corrected Sodium TNP 08/12/18 05:25 Potassium 3.6 mmol/L (3.5-5.1) 08/12/18 05:25 Chloride 109 mmol/L (98-107) H 08/12/18 05:25 Carbon Dioxide 17.6 mmol/L (21-32) L 08/12/18 05:25 BUN 8 mg/dL (7-18) 08/12/18 05:25 Creatinine 1.08 mg/dL (0.55-1.02) H 08/12/18 05:25 Est GFR (MDRD) Af Amer > 60 (>60) 08/12/18 05:25 Est GFR (MDRD) Non-Af 51 (>60) L 08/12/18 05:25 Glucose 98 mg/dL (65-99) 08/12/18 05:25 POC Glucose (mg/dL) 117 mg/dL (65-99) H 08/12/18 20:36 Calcium 8.3 mg/dL (8.5-10.1) L 08/12/18 05:25 Corrected Calcium 9.7 mg/dL (8.5-10.1) 08/12/18 05:25 Magnesium 1.5 mg/dL (1.7-2.9) L 08/12/18 05:25 Total Bilirubin 0.20 mg/dL (0.2-1.0) 08/12/18 05:25 AST 14 Units/L (15-37) L 08/12/18 05:25 ALT 21 Units/L (12-78) 08/12/18 05:25 Alkaline Phosphatase 57 Units/L (46-116) 08/12/18 05:25 Creatine Kinase 31 Units/L (26-192) 08/10/18 07:12 CK-MB (CK-2) < 1.0 ng/mL (0-4.0) 08/10/18 07:12 CK/CKMB % Calc 3.2 % (<4) 08/10/18 07:12 Troponin I < 0.02 ng/mL (0-1.5) 08/10/18 07:12 Total Protein 5.7 g/dL (6.4-8.2) L 08/12/18 05:25 Albumin 2.3 g/dL (3.4-5.0) L 08/12/18 05:25 Globulin 3.4 g/dL (2.5-4.5) 08/12/18 05:25 Albumin/Globulin Ratio 0.7 Ratio (1.1-2.1) L 08/12/18 05:25 Specimen Type Clean catch urine 08/09/18 19:12 Urine Color Yellow (YELLOW) 08/09/18 19:12 Urine Appearance Clear (CLEAR) 08/09/18 19:12 Urine pH 6.0 (5.0 - 8.0) 08/09/18 19:12 Ur Specific [place] 1.030 (1.000-1.030) 08/09/18 19:12 Urine Protein 4+ (NEGATIVE) 08/09/18 19:12 Urine Glucose (UA) 4+ (NEGATIVE) 08/09/18 19:12 Urine Ketones Negative (NEGATIVE) 08/09/18 19:12 Urine Occult Blood 1+ (NEGATIVE) 08/09/18 19:12 Urine Nitrite Negative (NEGATIVE) 08/09/18 19:12 Urine Bilirubin Negative (NEGATIVE) 08/09/18 19:12 Urine Urobilinogen Normal (NORMAL) 08/09/18 19:12 Ur Leukocyte Esterase Negative (NEGATIVE) 08/09/18 19:12 Urine RBC 0-2 /HPF (NONE SEEN) 08/09/18 19:12 Urine WBC 0-2 /HPF (NONE SEEN) 08/09/18 19:12 Ur Squamous Epith Cells Rare /HPF (NEGATIVE) 08/09/18 19:12 Amorphous Sediment Trace /HPF (NEGATIVE) 08/09/18 19:12 Urine Bacteria Negative /HPF (NEGATIVE) 08/09/18 19:12 Hyaline Casts Rare /LPF (NEGATIVE) 08/09/18 19:12 Ur Culture Indicated? No/not indicated 08/09/18 19:12 - Plan (1) Hypertension Status: Acute Qualifiers: Hypertension type: essential hypertension Qualified Code(s): I10 - Essential (primary) hypertension Plan: AMLODIPINE 10MG PO DAILY, CLONIDINE 0.1MG TD PATCH, COREG 6.25MG PO BID, AND LOSARTAN 100MG DAILY, SCRIPT WORKER, NIBP MONITORING, CONTINUE TO MONITOR (2) Falls Status: Acute Qualifiers: Encounter type: initial encounter Qualified Code(s): W19.XXXA - Unspecified fall, initial encounter Plan: PT CONSULT, CONTINUE TO MONITOR (3) Diabetes Status: Acute Qualifiers: Diabetes mellitus type: type 2 Diabetes mellitus alf insulin use: with alf use Diabetes mellitus complication status: with hyperglycemia Qualified Code(s): E11.65 - Type 2 diabetes mellitus with hyperglycemia; Z79.4 - correction (current) use of insulin Plan: HUMULIN R SLIDING SCALE, LANTUS 36 UNITS BID, GLUCATROL, GLUCOPHAGE, MONITOR OTBS (4) Hypomagnesemia Status: Acute Plan: MAGNESIUM REPLACEMENT WITH PROTOCOL
[2018-08-13 05:57] LABS: BASOPHILS # (AUTO) 0.1 X10^3/uL (0.0-0.1); EOSINOPHILS # (AUTO) 0.3 x10^3/uL (0.0-0.2); EOSINOPHILS % (AUTO) 4.2 % (0.9-2.9); HEMATOCRIT 29.8 % (36.0-47.0); HEMOGLOBIN 10.5 g/dL (12.0-16.0); LYMPHOCYTES # (AUTO) 1.8 X10^3/uL (1.3-2.9); LYMPHOCYTES % (AUTO) 25.2 % (21.0-51.0); MEAN CORPUSCULAR HEMOGLOBIN 31.6 pg (27.0-34.0); MEAN CORPUSCULAR HGB CONC 35.2 g/dL (33.0-35.0); MEAN CORPUSCULAR VOLUME 89.5 fL (80.0-100.0); MEAN PLATELET VOLUME 8.3 fL (7.4-11.0); MONOCYTES # (AUTO) 0.8 x10^3/uL (0.3-0.8); MONOCYTES % (AUTO) 10.3 % (0.0-13.0); NEUTROPHILS # (AUTO) 4.3 x10^3/uL (2.2-4.8); NEUTROPHILS % (AUTO) 59.3 % (42.0-75.0); PLATELET COUNT 249 X10^3/uL (150.0-450.0); RED BLOOD COUNT 3.33 X10^6/uL (3.5-5.4); WHITE BLOOD COUNT 7.3 X10^3/uL (3.6-10.0)
[2018-08-13 06:10] LABS: ALANINE AMINOTRANSFERASE 20 Units/L (12-78); ALBUMIN 2.3 g/dL (3.4-5.0); ALKALINE PHOSPHATASE 62 Units/L (46-116); ASPARTATE AMINO TRANSFERASE 16 Units/L (15-37); BLOOD UREA NITROGEN 6 mg/dL (7-18); CALCIUM 8.4 mg/dL (8.5-10.1); CARBON DIOXIDE 18.9 mmol/L (21-32); CHLORIDE 107 mmol/L (98-107); COR CA(FOR HYPOALB) 9.8 mg/dL (8.5-10.1); CREATININE 1.04 mg/dL (0.55-1.02); MAGNESIUM 1.9 mg/dL (1.7-2.9); SODIUM 139 mmol/L (136-145); TOTAL PROTEIN 6.1 g/dL (6.4-8.2); eGFR NON BLACK RACES 54 (>60)
[2018-08-13] MEDS: NS 1000 ML 1,000 ML IV SCH (06:55)
[2018-08-13] MEDS ORDERED: GLUCOPHAGE ONE (08:18)
[2018-08-13] MEDS: COZAAR PO SCH (08:36)
[2018-08-13] MEDS: ELAVIL PO SCH (08:37)
[2018-08-13] MEDS: GLUCOTROL PO SCH (08:37)
[2018-08-13] MEDS: NORVASC TAB 5 MG PO SCH (08:37)
[2018-08-13] MEDS: COREG TAB 6.25 MG PO SCH (08:37)
[2018-08-13] MEDS: GLUCOPHAGE PO SCH (08:37)
[2018-08-13] MEDS: ASPIRIN 81 MG CHEWTAB PO SCH (08:37)
[2018-08-13] MEDS: NexIUM PO SCH (08:37)
[2018-08-13] MEDS: FOLIC ACID TAB 1 MG PO SCH (08:38)
[2018-08-13] MEDS: CHECK PATCH XX SCH (08:38)
[2018-08-13] MEDS: LANTUS SC SCH (08:40)
[2018-08-13 12:50] VITALS: BP 190/60
--- NOTE | 2018-09-24 23:37 | DR.CARTERD ---
- Discharge Summary for: Discharge Summary for Date of:: 08/13/18 - Admission Date Date of Admission: 08/09/18 - Admission Diagnoses Admission Diagnosis: (1) Hypertension (2) Falls (3) Diabetes - Discharge Date Discharge Date: 08/13/18 - Discharge Diagnoses Discharge Diagnosis: (1) Hypertension (2) Falls (3) Diabetes (4) Hypomagnesemia - Hospital Course Hospital Course: DAY ONE, IS A 82 YEAR OLD PATIENT OF . SHE PRESENTED TO THE ER WITH COMPLAINTS OF FREQUENT FALLS. ON THE MOST RECENT FALL, DAUGHTER REPORTS HITTING HER HEAD AND INJURING HER LOWER BACK. FAMILY REPORTS THAT HER BLOOD PRESSURE HAS BEEN ELEVATED. PATIENT HAS A HISTORY OF CARDIAC STENTS X 2, CAD, HYPERTENSION, AND RENAL DISEASE. ON ARRIVAL, VITALS WERE 97.8-83-18-98%-213/101. LABS WERE OBTAINED. ABNORMAL LAB VALUES INCLUDE THE FOLLOWING: BUN 19, CREATININE 1.33, GLUCOSE 219, MAGNESIUM 1.4, TOTAL PROTEIN 5.8, ALBUMIN 2.6. A BRAIN CT WAS OBTAINED AND REVEALED: Generalized age related atrophic changes are seen. However no evidence of intracranial hemorrhage, extracerebral fluid collections, or intracranial mass. Ventricles are symmetric in size and position with no mass effect seen. Patchy low density is present in a periventricular white matter distribution, consistent with chronic small vessel ischemia. On the bone windows, no acute abnormality is identified. Visualized aspect of the paranasal sinuses and mastoid air cells are clear. CHEST XRAY REVEALED: Mild COPD is suspected. However no acute cardiopulmonary abnormality is identified on this exam. LUMBAR SPINE CT OBTAINED AND REVEALED: No acute osseous abnormality of the lumbar spine. Degenerative changes at L5-S1. Generalized osteopenia. Nonobstructing left nephrolithiasis. EKG REVEALED: SINUS RHYTHM WITH HR 78. SHE WAS STARTED ON A LABETALOL DRIP AND ADMITTED TO THE HOSPITAL FOR FURTHER EVALUATION AND TREATMENT. SHE WAS ALSO STARTED ON NORMAL SALINE AT 75ML/HR AND HUMULIN R SLIDING SCALE FOR CONTROL OF GLUCOSE LEVELS. WE FOLLOWED UP WITH AM LABS AND CONTINUED TO MONITOR PATIENT. DAY TWO. SHE WAS ALER T AND ORIENTED, LYING IN BED ON MORNING ROUNDS. SHE CONTINUED WITH GENERALIZED WEAKNESS. SHE REMAINED ON A LABETALOL DRIP THIS MORNING. ON EXAMINATION, HEART WAS REGULAR IN RATE AND RHYTHM. BILATERAL LUNGS WERE NOTED WITH DIMINISHED LUNG SOUNDS THROUGHOUT. ABDOMEN WAS ROUND, SOFT, AND NON-TENDER WITH NORMAL BOWEL SOUNDS NOTED IN ALL QUADRANTS. HER VITLAS THIS MORNING WERE 97.0-60+-18-98%NC-183/72. LABS WERE OBTAINED. ABNORMAL LAB VALUES INCLUDED THE FOLLOWING: HGB 10.9, HCT 31.2, BUN 19, CREATININE 1.33, GLUCOSE 219, MAGNESIUM 1.4, TOTAL PROTEIN 5.8, ALBUMIN 2.6. WE STARTED AMLODIPINE 5MG PO DAILY, COREG 6.25MG PO BID, AND LOSARTAN 100MG DAILY. WE CONTINUED WITH CURRENT PLAN OF CARE. WE CONTINUED TO MONITOR BLOOD GLUCOSE LEVELS AND REPLACED HER POTASSIUM WITH THE PROTOCOL. WE FOLLOWED UP WITH AM LABS AND CONTINUED TO MONITOR NIBP. DAY THREE, SHE WAS ALERT AND ORIENTED, LYING IN BED ON MORNING ROUNDS. SHE CONTINUED WITH GENERALIZED WEAKNESS. THE LABETALOL DRIP WAS DISCONTINUED YESTERDAY AND SHE WAS STARTED ON ORAL HYPERTENSIVES. SHE CONTINUED TO BE HYPERTENSIVE THROUGHOUT THE NIGHT. ON EXAMINATION, HEART WAS REGULAR IN RATE AND RHYTHM. BILATERAL LUNGS WERE NOTED WITH DIMINISHED LUNG SOUNDS THROUGHOUT. ABDOMEN WAS ROUND, SOFT, AND NON-TENDER WITH NORMAL BOWEL SOUNDS NOTED IN ALL QUADRANTS. HER VITLAS THIS MORNING WERE 97.0-64-24-97%-172/94. LABS WERE OBTAINED. ABNORMAL LAB VALUES INCLUDED THE FOLLOWING: RBC 3.44, HGB 11.0, HCT 30.8, CARBON DIXOIDE 18.5, CREATININE 1.25, GLUCOSE 230, CALCIUM 8.4, TOTAL PROTEIN 6.2, ALBUMIN 2.5. TODAY, WE INCREASED AMLODIPINE TO 10MG PO DAILY AND ADDED A CLONIDINE 0.1MG PATCH. WE CONTINUED WITH CURRENT PLAN OF CARE. WE FOLLOWED UP WITH AM LABS AND CONTINUED TO MONITOR NIBP. DAY FIVE, PATIENT ALERT AND ORIENTED DURING MORNING ROUNDS. PATIENT'S BP PRESSURE HAS BEEN CONSISTENTLY ELEVATED DURING HOSPITAL STAY. THIS AM ON MORNING ROUNDS BP WAS 179/76. LABS ARE WITHIN NORMAL RANGE FOR PATIENT AND ALL OTHER VITALS ARE STABLE. PATIENT VOICES ZERO COMPLAINTS THIS AM. WE PLANNED FOR DISCHARGE. INSTRUCTIONS FOR MEDICATIONS AND FOLLOW UP WERE DISCUSSED WITH PATIENT AND FAMILY, BOTH VOICED UNDERSTANDING. PATIENT DISCHARGED THEO IN STABLE CONDITION WITH FAMILY. - Discharge Medications Discharge Medications: Home Medication List amitriptyline 10 mg PO DAILY 08/10/18 [History] aspirin 81 mg PO DAILY 08/10/18 [History] atorvastatin [Lipitor] 40 mg PO HS 08/10/18 [History] celecoxib [Celebrex] 200 mg PO DAILY 08/10/18 [History] esomeprazole magnesium [Nexium] 40 mg PO BID 08/10/18 [History] folic acid 1 mg PO DAILY 08/10/18 [History] glipizide 5 mg PO BID 08/10/18 [History] metformin [Glucophage] 1,000 mg PO BID 08/10/18 [History] amlodipine [Norvasc] 10 mg PO QDAY #30 tab 08/13/18 [Rx] carvedilol [Coreg] 6.25 mg PO BID #60 tab 08/13/18 [Rx] clonidine [[id number]] 1 patch TRANSDERMAL QWEEK #5 ea 08/13/18 [Rx] losartan [Cozaar] 100 mg PO HS #30 tab 08/13/18 [Rx] Prescriptions: amlodipine [Norvasc] Gonzalo Hayes carvedilol [Coreg] Gonzalo Hayes clonidine [[id number]] Gonzalo Hayes losartan [Cozaar] Gonzalo Hayes - Discharge Disposition Discharge Disposition: PATIENT TO FOLLOW UP IN OUR OFFICE IN ONE WEEK.
== END 2018-08-13 13:00 | disposition home health service (06) | DRG 305 ==
LOC: ER 18:18 → ICU 20:55
PROVIDERS: ADMIT Internal Medicine; ATTEND Internal Medicine
DX: Z91.81 History of falling; R94.31 Abnormal electrocardiogram [ECG] [EKG]; S09.8XXA Other specified injuries of head, initial encounter; W18.39XA Other fall on same level, initial encounter; R53.1 Weakness; E83.42 Hypomagnesemia; S39.82XA Other specified injuries of lower back, initial encounter; E11.65 Type 2 diabetes mellitus with hyperglycemia; Z79.4 Long term (current) use of insulin; I25.10 Atherosclerotic heart disease of native coronary artery without angina pectoris; I10 Essential (primary) hypertension; R26.89 Other abnormalities of gait and mobility; R29.6 Repeated falls; I16.0 Hypertensive urgency
CPT/HCPCS: 36415; 70450; 71010; 71045; 72131; 80053; 81001; 82550; 82553; 83735; 84484; 85014; 85018; 85025; 90686; 93005; 93010; 96365; 96367; 96374; 96375; 97110; 97162; 97530; 99283; 99285; A4222; 90670; J1815; J2270; J3475; J3490; J7030; J7040; J7050

== ENCOUNTER 2019-02-14 19:32 | Inpatient (IN) ==
[2019-02-14] MEDS ORDERED: CATAPRES TAB 0.1 MG ONE (19:42)
[2019-02-14] MEDS ORDERED: CATAPRES TAB 0.1 MG PO ONE (19:53)
--- NOTE | 2019-02-14 20:04 | DR.NAUSEAF ---
HPI Time Seen Time Seen by Provider: 02/14/19 19:50 Primary Care Physician Primary Care Physician: TATI Complaints Chief Complaint Doctors Comments: An 83 y/o female brought in for evaluation by her daughter who upon return from work at about 1700 hrs. had noted slurred speech pattern. The pt. had complained of headache, nausea and vomiting since s he awoke this morning however. Chief Complaint:: PT STATES SHE HAS THE WORST HEADACHE OF HER LIFE, NAUSEA AND VOMITING, BLOOD PRESSURE NOTED TO BE HIGH ON MONITOR. Reviewed Nurses Notes Reviewed: Yes Source History Provided: Patient and Family Member Mode of Arrival Mode of Arrival: Wheelchair Timing Onset of Chief Complaint: 02/14/19 Context Onset: Spontaneous Recent: None Possible Ingestion: denies Unknown, ETOH, Ethylene Glycol, Isopropanol and M ethanol : Yes PMH PMH Past Medical History: Yes Past Medical History: Coronary Artery Disease, Diabetes, Hypertension, Kidney Stones and Renal Disease Past Medical History Comment: CARDIAC STENTS X1 KIDNEY STENTS X 1 Past Surgical History: Yes Surgical History: Angioplasty/Stents, Cholecystectomy, Hysterectomy and Lithotripsy Past Surgical History Comment: HEART CATH KIDENY STENT PARTIAL HYSTERECTOMY Family History History of Family Medical Conditions: Yes Family Medical History: Diabetes Mellitus and Cancer Social History Does patient currently use any type of tobacco product: No Have you used tobacco products in the last 12 months: No Type of Tobacco Use: None Does any household member use tobacco: No Alcohol Use: None Do you use any recreational Drugs:: No Lives With: Family Lives Where: Home infectious screening In the last 2 months have you had wt loss of >10#?: NO Have you had fever, night sweats or hemotysis?: No Have you traveled outside the country in the last 6 months?: No Isolation: Standard ROS Review of Systems Constitutional: No Symptoms Reported Eyes: No Symptoms Reported ENTM: No Symptoms Reported Respiratoy: No Symptoms Reported Cardiovascular: No Symptoms Reported Gastrointestinal/Abdominal: Nausea and Vomiting Genitourinary: No Symptoms Reported Neurological: Headache Musculoskeletal: No Symptoms Reported Integumentary: No Symptoms Reported Hematologic/Lymphatic: No Symptoms Reported Endocrine: No Symptoms Reported Psychiatric: No Symptoms Reported PE Vital Signs Vitals: Temperature 98.2 F Pulse Rate [Apical] 80 Pulse Rate 121 Respiratory Rate 15 Blood Pressure [Left Arm] 193/86 Blood Pressure [Right Arm] 172/74 Blood Pressure 256/130 O2 Sat by Pulse Oximetry 94 General Limitations: No Limitations General Appearance: Alert and In No Apparent Distress Head Head Exam: Normal Inspection, Atraumatic and Normocephalic Eyes Eye exam: Normal Appearance, PERRL and EOMI ENT ENT Exam: Normal Oropharynx, Mucous Membranes Moist and TM's Normal Bilaterally Neck Neck Exam: Normal Inspection, Full ROM and Trachea Midline Chest Chest Inspection: Normal Inspection and Symmetric Chest Wall Rise Respiratory Respiratory Exam: Normal Lung Sounds Bilat Cardiovascular Cardiovascular Exam: Regular Rate, Normal Rhythm, +S1 and +S2 Abdominal Exam Abdominal Exam: Normal Inspection, Normal Bowel Sounds and Soft Rectal Rectal Exam: Deferred External Exam: Female: Deferred Extremities Extremities Exam: Normal Inspection and Other; negative Tenderness, Normal Capillary Refill, Edema, Joint Swelling and Calf Tenderness Back Back Exam: Normal Inspection Neurologic Neurological Exam: Alert, Reflexes Normal and Other (She has flattening of the naso-labial fold on the left. She follows commands. She can independently lift arms and legs off the bed. However, her speech is slurred though understandable.) Psychiatric Psychiatric Exam: Normal Affect and Normal Mood Skin Skin Exam: Warm, Dry and Normal Color COURSE Reevaluation 1st: Improved Education/Counseling Education/Counseling: Patient, Family, Education and Counseling Educated On: Treatment, Diagnosis, Prognosis and Needs for Follow Up ROR Labs Reviewed Laboratory Results Reviewed?: Yes Result Diagrams: 02/14/19 20:29 02/14/19 20: Laboratory: WBC 13.4 X10^3/uL (3.6-10.0) H 02/14/19 20: RBC 3.93 X10^6/uL (3.5-5.4) 02/14/19 20: Hgb 12.3 g/dL (12.0-16.0) 02/14/19 20: Hct 35.7 % (36.0-47.0) L 02/14/19 20: MCV 90.8 fL (80.0-100.0) 02/14/19 20: MCH 31.3 pg (27.0-34.0) 02/14/19 20: MCHC 34.5 g/dL (33.0-35.0) 02/14/19 20: RDW 13.3 % (11.6-16.5) 02/14/19 20: Plt Count 315 X10^3/uL (150.0-450.0) 02/14/19 20: MPV 7.6 fL (7.4-11.0) 02/14/19 20: Neut % (Auto) 89.4 % (42.0-75.0) H 02/14/19 20: Lymph % (Auto) 7.4 % (21.0-51.0) L 02/14/19 20: [place] % (Auto) 2.9 % (0.0-13.0) 02/14/19 20: Eos % (Auto) 0.1 % (0.9-2.9) L 02/14/19 20: Baso % (Auto) 0.2 % (0.2-1.0) 02/14/19 20: Neut # (Auto) 12.0 x10^3/uL (2.2-4.8) H 02/14/19 20: Lymph # (Auto) 1.0 X10^3/uL (1.3-2.9) L 02/14/19 20: [place] # (Auto) 0.4 x10^3/uL (0.3-0.8) 02/14/19 20: Eos # (Auto) 0.0 x10^3/uL (0.0-0.2) 02/14/19 20: Baso # (Auto) 0.0 X10^3/uL (0.0-0.1) 02/14/19 20: Absolute Nucleated RBC 0.0 /100WBC 02/14/19 20: INR Target Range - 02/14/19 20: INR 1.05 (0.8-1.3) 02/14/19 20: APTT 26.9 SECONDS (22.9-36.5) 02/14/19 20: PTT Comment - 02/14/19 20: Fibrinogen 448 mg/dL (239-489) 02/14/19 20:29 Sodium 137 mmol/L (136-145) 02/14/19 20: Corrected Sodium 142 mmol/L (136-145) 02/14/19 20: Potassium 3.4 mmol/L (3.5-5.1) L 02/14/19 20:29 Chloride 100 mmol/L (98-107) 02/14/19 20:29 Carbon Dioxide 21.6 mmol/L (21-32) 02/14/19 20:29 BUN 13 mg/dL (7-18) 02/14/19 20:29 Creatinine 1.50 mg/dL (0.55-1.02) H 02/14/19 20:29 Est GFR (MDRD) Af Amer 42 (>60) L 02/14/19 20:29 Est GFR (MDRD) Non-Af 35 (>60) L 02/14/19 20:29 Glucose 295 mg/dL (65-99) H 02/14/19 20:29 Calcium 9.3 mg/dL (8.5-10.1) 02/14/19 20: Corrected Calcium 10.2 mg/dL (8.5-10.1) H 02/14/19 20:29 Total Bilirubin 0.30 mg/dL (0.2-1.0) 02/14/19 20:29 AST 29 Units/L (15-37) 02/14/19 20:29 ALT 24 Units/L (12-78) 02/14/19 20:29 Alkaline Phosphatase 76 Units/L (46-116) 02/14/19 20:29 Total Protein 6.8 g/dL (6.4-8.2) 02/14/19 20:29 Albumin 2.9 g/dL (3.4-5.0) L 02/14/19 20:29 Globulin 3.9 g/dL (2.5-4.5) 02/14/19 20:29 Albumin/Globulin Ratio 0.7 Ratio (1.1-2.1) L 02/14/19 20:29 Triglycerides 272 mg/dL (0-150) H 02/14/19 20:29 Cholesterol 189 mg/dL (0-200) 02/14/19 20:29 LDL Cholesterol, Calc 90 mg/dL (0-100) 02/14/19 20:29 HDL Cholesterol 45 mg/dL (40-60) 02/14/19 20:29 Cholesterol/HDL Ratio 4.2 (0.0-5.0) 02/14/19 20:29 XRAY XRAY Interpreted by: Self XRAY Findings: CXR: no cardiomegaly or infiltrates noted. osteopenia noted . EKG Rate: 112 [place]: Normal Rhythm: ST Block: None Hypertrophy: LVH ST: Normal Diagnosis Discharge Problem: Hypertensive urgency, malignant, Brain TIA
--- NOTE | 2019-02-14 20:35 | CT ---
CT brain without contrast Indication:Headache post fall Comparison: 08/09/2018 Technique: Multiple axial images of the brain were obtained from the skull base to the vertex without administration of IV contrast. Findings: Moderate generalized cerebral atrophy and bilateral periventricular and deep white matter hypoattenuation similar to prior imaging. No acute intraparenchymal hemorrhage or mass can be identified. No extra-axial fluid collections are seen. No alteration in the attenuation of the brain parenchyma can be identified to suggest acute or subacute ischemic change. The ventricular system is symmetric and nondilated. The extracranial structures are grossly unremarkable. IMPRESSION: 1. No change in generalized cerebral atrophy with bilateral periventricular and deep white matter hypoattenuation is likely in setting of chronic microvascular ischemic disease. No acute intracranial hemorrhage or mass effect. Reported By:
[2019-02-14 20:40] LABS: BASOPHILS % (AUTO) 0.2 % (0.2-1.0); EOSINOPHILS % (AUTO) 0.1 % (0.9-2.9); HEMATOCRIT 35.7 % (36.0-47.0); HEMOGLOBIN 12.3 g/dL (12.0-16.0); LYMPHOCYTES % (AUTO) 7.4 % (21.0-51.0); MEAN CORPUSCULAR HEMOGLOBIN 31.3 pg (27.0-34.0); MEAN CORPUSCULAR HGB CONC 34.5 g/dL (33.0-35.0); MEAN CORPUSCULAR VOLUME 90.8 fL (80.0-100.0); MEAN PLATELET VOLUME 7.6 fL (7.4-11.0); MONOCYTES # (AUTO) 0.4 x10^3/uL (0.3-0.8); MONOCYTES % (AUTO) 2.9 % (0.0-13.0); NEUTROPHILS % (AUTO) 89.4 % (42.0-75.0); PLATELET COUNT 315 X10^3/uL (150.0-450.0); RED BLOOD COUNT 3.93 X10^6/uL (3.5-5.4); RED CELL DISTRIBUTION WIDTH 13.3 % (11.6-16.5); WHITE BLOOD COUNT 13.4 X10^3/uL (3.6-10.0)
[2019-02-14 20:47] LABS: ALBUMIN 2.9 g/dL (3.4-5.0); CALCIUM 9.3 mg/dL (8.5-10.1); CARBON DIOXIDE 21.6 mmol/L (21-32); CHOL/HDL RATIO 4.2 (0.0-5.0); COR CA(FOR HYPOALB) 10.2 mg/dL (8.5-10.1); CREATININE 1.5 mg/dL (0.55-1.02); TOTAL PROTEIN 6.8 g/dL (6.4-8.2)
[2019-02-14] MEDS ORDERED: NORMODYNE INJ 20 MG VIAL IVP ONE (20:54)
--- NOTE | 2019-02-14 20:59 | RAD ---
AP chest Indication: Chest pain Comparison: 09/18/2018 Findings: The trachea is midline. Heart size is within normal limits. Chronic interstitial lung changes without focal airspace opacity, pleural effusion or pneumothorax. No acute osseous. Impression: Chronic interstitial lung changes without acute airspace disease or CHF. Reported By:
[2019-02-14] MEDS ORDERED: ZOFRAN INJ 4 MG VIAL IVP PRN (22:49)
[2019-02-14] MEDS: NORMODYNE INJ 20 MG VIAL IVP PRN (23:09)
[2019-02-14 23:15] VITALS: BMI 19.2
[2019-02-15] MEDS: NORMODYNE INJ 20 MG VIAL IVP PRN (01:35)
[2019-02-15] MEDS ORDERED: K-RIDER 10 MEQ/NS 100 ML 10 MEQ/100 ML BAG IV PRN (01:45)
[2019-02-15] MEDS ORDERED: POTASSIUM CHLORIDE LIQ 20 MEQ UDC PO PRN (01:45)
[2019-02-15] MEDS ORDERED: KLOR-CON PO PRN (01:45)
[2019-02-15] MEDS ORDERED: POTASSIUM CHL 60 MEQ/NS 0.45% 500 ML IV PRN (01:45)
[2019-02-15] MEDS ORDERED: POTASSIUM CHL 40 MEQ/NS 0.45% 500 ML IV PRN (01:45)
[2019-02-15] MEDS ORDERED: MICRO K EXTEN CAP 10 MEQ PO PRN (01:45)
[2019-02-15] MEDS ORDERED: POTASSIUM CHLORIDE LIQ 20 MEQ UDC ONE (02:25)
[2019-02-15] MEDS ORDERED: MAGNESIUM SULFATE 1 GRAM/100 mL PREMIX 1 G/100 ML BAG IV ONE ×4 (02:25→05:34)
[2019-02-15] MEDS: MAGNESIUM SULFATE 1 GRAM/100 mL PREMIX 1 GM/100 ML BAG IV PRN ×4 (02:29→06:16)
[2019-02-15 02:42] LABS: BILIRUBIN,URINE NEGATIVE (NEGATIVE); BLOOD/HEMOGLOBIN,URINE 1+ (NEGATIVE); GLUCOSE, URINE 4+ (NEGATIVE); KETONES,URINE 2+ (NEGATIVE); LEUKOCYTE ESTERASE ,URINE NEGATIVE (NEGATIVE); NITRITES,URINE NEGATIVE (NEGATIVE); PROTEIN,URINE 4+ (NEGATIVE); UROBILINOGEN,URINE NORMAL (NORMAL)
[2019-02-15 02:49] LABS: APPEARANCE,URINE CLEAR (CLEAR); COLOR,URINE YELLOW (YELLOW)
[2019-02-15 02:50] LABS: AMORPHOUS SEDIMENT,UR 1+ /HPF (NEGATIVE); BACTERIA,URINE TRACE /HPF (NEGATIVE); RBC,URINE 0-2 /HPF (NONE SEEN); SQUAMOUS EPITHELIAL CELL,UR RARE /HPF (NEGATIVE)
[2019-02-15 05:40] LABS: BASOPHILS % (AUTO) 0.5 % (0.2-1.0); HEMOGLOBIN 11.4 g/dL (12.0-16.0); LYMPHOCYTES # (AUTO) 1.4 X10^3/uL (1.3-2.9); LYMPHOCYTES % (AUTO) 15.2 % (21.0-51.0); MEAN CORPUSCULAR HEMOGLOBIN 31.4 pg (27.0-34.0); MEAN CORPUSCULAR HGB CONC 34.7 g/dL (33.0-35.0); MEAN CORPUSCULAR VOLUME 90.3 fL (80.0-100.0); MONOCYTES # (AUTO) 0.4 x10^3/uL (0.3-0.8); MONOCYTES % (AUTO) 4.8 % (0.0-13.0); NEUTROPHILS # (AUTO) 7.1 x10^3/uL (2.2-4.8); NEUTROPHILS % (AUTO) 79.5 % (42.0-75.0); PLATELET COUNT 301 X10^3/uL (150.0-450.0); RED BLOOD COUNT 3.65 X10^6/uL (3.5-5.4); RED CELL DISTRIBUTION WIDTH 13.5 % (11.6-16.5)
[2019-02-15] MEDS ORDERED: TYLENOL SUPP 650 MG PR PRN (05:46)
[2019-02-15 05:50] LABS: ALBUMIN 2.7 g/dL (3.4-5.0); CALCIUM 9.6 mg/dL (8.5-10.1); CARBON DIOXIDE 20.5 mmol/L (21-32); CHOL/HDL RATIO 3.8 (0.0-5.0); COR CA(FOR HYPOALB) 10.6 mg/dL (8.5-10.1); CREATININE 1.95 mg/dL (0.55-1.02); TOTAL PROTEIN 6.4 g/dL (6.4-8.2)
[2019-02-15] MEDS ORDERED: TYLENOL SUPP 650 MG ONE (05:50)
[2019-02-15] MEDS: HumuLIN R SC PRN (06:37)
[2019-02-15] MEDS ORDERED: ASPIRIN 81 MG CHEWTAB PO SCH (09:00)
[2019-02-15] MEDS ORDERED: COREG TAB 12.5 MG PO ONE (12:41)
[2019-02-15] MEDS: NS 1000 ML 1,000 ML IV SCH ×2 (12:48→19:16)
[2019-02-15] MEDS: ACTOS PO SCH (12:48)
[2019-02-15] MEDS: COREG TAB 12.5 MG PO SCH ×2 (12:50→22:30)
[2019-02-15] MEDS: NexIUM PO SCH (12:50)
[2019-02-15] MEDS: ELAVIL PO SCH (12:50)
[2019-02-15] MEDS: FOLIC ACID TAB 1 MG PO SCH (12:50)
[2019-02-15] MEDS: XARELTO PO SCH ×2 (12:55→20:40)
[2019-02-15] MEDS: ASPIRIN EC 81 MG PO SCH (13:01)
[2019-02-15] MEDS ORDERED: GLUCOPHAGE ONE (20:27)
[2019-02-15] MEDS ORDERED: BUTT CREAM (COMPOUND) TOP PRN (20:57)
[2019-02-15] MEDS ORDERED: GLUCOPHAGE PO SCH (21:00)
[2019-02-16] MEDS: NS 1000 ML 1,000 ML IV SCH ×3 (01:21→14:07)
[2019-02-16 05:33] LABS: BASOPHILS % (AUTO) 0.7 % (0.2-1.0); EOSINOPHILS # (AUTO) 0.1 x10^3/uL (0.0-0.2); HEMATOCRIT 30.6 % (36.0-47.0); HEMOGLOBIN 10.5 g/dL (12.0-16.0); LYMPHOCYTES # (AUTO) 2.2 X10^3/uL (1.3-2.9); LYMPHOCYTES % (AUTO) 32.3 % (21.0-51.0); MEAN CORPUSCULAR HGB CONC 34.4 g/dL (33.0-35.0); MEAN CORPUSCULAR VOLUME 92.9 fL (80.0-100.0); MEAN PLATELET VOLUME 8.1 fL (7.4-11.0); MONOCYTES # (AUTO) 0.8 x10^3/uL (0.3-0.8); MONOCYTES % (AUTO) 11.8 % (0.0-13.0); NEUTROPHILS # (AUTO) 3.6 x10^3/uL (2.2-4.8); NEUTROPHILS % (AUTO) 53.2 % (42.0-75.0); PLATELET COUNT 245 X10^3/uL (150.0-450.0); RED BLOOD COUNT 3.29 X10^6/uL (3.5-5.4); WHITE BLOOD COUNT 6.8 X10^3/uL (3.6-10.0)
[2019-02-16 05:42] LABS: ALBUMIN 2.3 g/dL (3.4-5.0); CALCIUM 8.7 mg/dL (8.5-10.1); COR CA(FOR HYPOALB) 10.1 mg/dL (8.5-10.1); CREATININE 2.03 mg/dL (0.55-1.02); MAGNESIUM 2.5 mg/dL (1.7-2.9); TOTAL PROTEIN 5.7 g/dL (6.4-8.2)
[2019-02-16] MEDS: TYLENOL 325 MG TAB PO PRN ×4 (06:32→23:28)
[2019-02-16] MEDS: NORMODYNE INJ 20 MG VIAL IVP PRN ×2 (07:48→14:08)
[2019-02-16] MEDS ORDERED: VITAMIN D (1.25MG) PO SCH (09:15)
[2019-02-16] MEDS: ACTOS PO SCH (09:45)
[2019-02-16] MEDS: ELAVIL PO SCH (09:45)
[2019-02-16] MEDS: XARELTO PO SCH ×2 (09:45→21:37)
[2019-02-16] MEDS: NexIUM PO SCH (09:45)
[2019-02-16] MEDS: COREG TAB 6.25 MG PO SCH ×2 (09:45→21:37)
[2019-02-16] MEDS: FOLIC ACID TAB 1 MG PO SCH (09:45)
[2019-02-16] MEDS: NORVASC TAB 5 MG PO SCH (09:45)
[2019-02-16] MEDS: ASPIRIN EC 81 MG PO SCH (09:45)
[2019-02-16] MEDS ORDERED: CATAPRES-TTS-2 TD SCH (10:00)
[2019-02-16] MEDS ORDERED: NORVASC TAB 5 MG PO ONE (17:28)
[2019-02-16] MEDS: LIPITOR TAB 40 MG PO SCH (21:37)
[2019-02-17 06:11] LABS: BASOPHILS % (AUTO) 0.5 % (0.2-1.0); EOSINOPHILS # (AUTO) 0.2 x10^3/uL (0.0-0.2); HEMATOCRIT 28.7 % (36.0-47.0); HEMOGLOBIN 9.9 g/dL (12.0-16.0); LYMPHOCYTES # (AUTO) 1.5 X10^3/uL (1.3-2.9); LYMPHOCYTES % (AUTO) 19.7 % (21.0-51.0); MEAN CORPUSCULAR HEMOGLOBIN 31.7 pg (27.0-34.0); MEAN CORPUSCULAR HGB CONC 34.7 g/dL (33.0-35.0); MEAN CORPUSCULAR VOLUME 91.4 fL (80.0-100.0); MEAN PLATELET VOLUME 8.3 fL (7.4-11.0); MONOCYTES # (AUTO) 0.7 x10^3/uL (0.3-0.8); MONOCYTES % (AUTO) 8.5 % (0.0-13.0); NEUTROPHILS # (AUTO) 5.3 x10^3/uL (2.2-4.8); NEUTROPHILS % (AUTO) 68.3 % (42.0-75.0); PLATELET COUNT 247 X10^3/uL (150.0-450.0); RED BLOOD COUNT 3.14 X10^6/uL (3.5-5.4); RED CELL DISTRIBUTION WIDTH 13.9 % (11.6-16.5); WHITE BLOOD COUNT 7.8 X10^3/uL (3.6-10.0)
[2019-02-17 06:35] LABS: ALBUMIN 2.1 g/dL (3.4-5.0); CALCIUM 8.4 mg/dL (8.5-10.1); CARBON DIOXIDE 19.8 mmol/L (21-32); COR CA(FOR HYPOALB) 9.9 mg/dL (8.5-10.1); CREATININE 1.43 mg/dL (0.55-1.02); TOTAL PROTEIN 5.4 g/dL (6.4-8.2)
[2019-02-17] MEDS: K-DUR TAB 20 MEQ PO PRN (06:39)
[2019-02-17] MEDS: NS 1000 ML 1,000 ML IV SCH ×4 (07:06→20:39)
[2019-02-17] MEDS: NORMODYNE INJ 20 MG VIAL IVP PRN ×2 (07:19→19:07)
--- NOTE | 2019-02-17 08:49 | PCM.PROG ---
Progress Note - Progress Note for Day of Date of Exam: 02/16/19 - Subjective Subjective: WAS ADMITTED FOR HYPERTENSIVE URGENCY AND TIA. TODAY, SHE IS ALERT AND ORIENTED, LYING IN BED ON MORNING ROUNDS. SHE REPORTS WEAKNESS TODAY. SHE CONTINUES TO BE HYPERTENSIVE ACCORDING TO STAFF. STAFF ALSO REPORTS THAT HER HEARTRATE HAS BEEN FALLING INTO THE 40S. ON EXAMINATION, HEART IS REGULAR IN RATE AND RHYTHM. BILATERAL LUNGS ARE NOTED WITH DIMINISHED LUNG SOUNDS THROUGHOUT. ABDOMEN IS ROUND, SOFT, AND NON-TENDER WITH NORMAL BOWEL SOUNDS NOTED IN ALL QUADRANTS. HER VITALS THIS MORNING ARE 98.5-60-20-98%-183/72. LABS WERE OBTAINED. ABNORMAL LAB VALUES INCLUDE THE FOLLOWING: RBC 3.29, HGB 10.5, HCT 30.6, BUN 22, CREATININE 20.3, GLUCOSE 128, TOTAL PROTEIN 5.7, ALBUMIN 2.3. BLOOD CULTURES ARE PENDING. TODAY, WE WILL DECREASE HER COREG TO 6.25MG PO BID, START AMLODIPINE 5MG PO DAILY, AND RESTART HER CLONIDINE PATCH. PHYSICAL THERAPY IS WORKING WITH PATIENT. OTHERWISE, WE WILL CONTINUE WITH CURRENT PLAN OF CARE. WE WILL FOLLOW-UP WITH AM LABS AND CONTINUE TO MONITOR. - Past Medical Family Social History Past Med/Fam/Surg Hx: No changes since H&P Allergies: Allergies codeine Allergy (Verified 09/18/18 12:31) meperidine [From Demerol] Allergy (Verified 09/18/18 12:31) - Review of Systems ROS: No change since H&P - Vital Signs and I&O's Vital Signs: Temperature 97.8 F Pulse Rate [Apical] 60 Pulse Rate 121 Respiratory Rate 20 Blood Pressure [Left Arm] 194/83 Blood Pressure [Right Arm] 172/74 Blood Pressure 256/130 O2 Sat by Pulse Oximetry 99 Intake and Output: Intake & Output 02/14/19 02/15/19 02/16/19 02/17/19 11:59 11:59 11:59 11:59 Intake Total 400 / 400 2321 / 2321 5312 / 5312 Output Total 601 / 601 650 / 650 2350 / 2350 Balance -201 / -201 1671 / 1671 2962 / 2962 - Physical Exam Oriented: Normal Eyes: Normal Ear: Normal Nose: Normal Throat: Normal Respiratory: Generalized, Diminished Cardiovascular: Normal. negative: S3, S4, Murmur : Normal Auscultation: Bowel Sounds: Normal Palpation: Normal Tenderness: Normal Skin: Normal Musculoskeletal: Normal Mood Description: Calm Speech Pattern: Clear, Appropriate - Laboratory and Diagnostics Result Diagrams: 02/17/19 05:12 02/17/19 05:12 Labs: Laboratory WBC 7.8 X10^3/uL (3.6-10.0) 02/17/19 05:12 RBC 3.14 X10^6/uL (3.5-5.4) L 02/17/19 05:12 Hgb 9.9 g/dL (12.0-16.0) L 02/17/19 05:12 Hct 28.7 % (36.0-47.0) L 02/17/19 05:12 MCV 91.4 fL (80.0-100.0) 02/17/19 05:12 MCH 31.7 pg (27.0-34.0) 02/17/19 05:12 MCHC 34.7 g/dL (33.0-35.0) 02/17/19 05:12 RDW 13.9 % (11.6-16.5) 02/17/19 05:12 Plt Count 247 X10^3/uL (150.0-450.0) 02/17/19 05:12 MPV 8.3 fL (7.4-11.0) 02/17/19 05:12 Neut % (Auto) 68.3 % (42.0-75.0) 02/17/19 05:12 Lymph % (Auto) 19.7 % (21.0-51.0) L 02/17/19 05:12 [place] % (Auto) 8.5 % (0.0-13.0) 02/17/19 05:12 Eos % (Auto) 3.0 % (0.9-2.9) H 02/17/19 05:12 Baso % (Auto) 0.5 % (0.2-1.0) 02/17/19 05:12 Neut # (Auto) 5.3 x10^3/uL (2.2-4.8) H 02/17/19 05:12 Lymph # (Auto) 1.5 X10^3/uL (1.3-2.9) 02/17/19 05:12 [place] # (Auto) 0.7 x10^3/uL (0.3-0.8) 02/17/19 05:12 Eos # (Auto) 0.2 x10^3/uL (0.0-0.2) 02/17/19 05:12 Baso # (Auto) 0.0 X10^3/uL (0.0-0.1) 02/17/19 05:12 Absolute Nucleated RBC 0.0 /100WBC 02/17/19 05:12 INR Target Range - 02/15/19 05:30 INR 1.07 (0.8-1.3) 02/15/19 05:30 APTT 25.8 SECONDS (22.9-36.5) 02/15/19 05:30 PTT Comment - 02/15/19 05:30 Fibrinogen 448 mg/dL (239-489) 02/14/19 20:29 Sodium 139 mmol/L (136-145) 02/17/19 05:12 Corrected Sodium 141 mmol/L (136-145) 02/17/19 05:12 Potassium 3.3 mmol/L (3.5-5.1) L 02/17/19 05:12 Chloride 108 mmol/L (98-107) H 02/17/19 05:12 Carbon Dioxide 19.8 mmol/L (21-32) L 02/17/19 05:12 BUN 18 mg/dL (7-18) 02/17/19 05:12 Creatinine 1.43 mg/dL (0.55-1.02) H 02/17/19 05:12 Est GFR (MDRD) Af Amer 45 (>60) L 02/17/19 05:12 Est GFR (MDRD) Non-Af 37 (>60) L 02/17/19 05:12 Glucose 188 mg/dL (65-99) H 02/17/19 05:12 POC Glucose (mg/dL) 173 mg/dL (65-99) H 02/17/19 05:25 Calcium 8.4 mg/dL (8.5-10.1) L 02/17/19 05:12 Corrected Calcium 9.9 mg/dL (8.5-10.1) 02/17/19 05:12 Magnesium 2.5 mg/dL (1.7-2.9) 02/16/19 05:20 Total Bilirubin 0.10 mg/dL (0.2-1.0) L 02/17/19 05:12 AST 18 Units/L (15-37) 02/17/19 05:12 ALT 19 Units/L (12-78) 02/17/19 05:12 Alkaline Phosphatase 74 Units/L (46-116) 02/17/19 05:12 Total Protein 5.4 g/dL (6.4-8.2) L 02/17/19 05:12 Albumin 2.1 g/dL (3.4-5.0) L 02/17/19 05:12 Globulin 3.3 g/dL (2.5-4.5) 02/17/19 05:12 Albumin/Globulin Ratio 0.6 Ratio (1.1-2.1) L 02/17/19 05:12 Triglycerides 212 mg/dL (0-150) H 02/15/19 05:30 Cholesterol 175 mg/dL (0-200) 02/15/19 05:30 LDL Cholesterol, Calc 87 mg/dL (0-100) 02/15/19 05:30 HDL Cholesterol 46 mg/dL (40-60) 02/15/19 05:30 Cholesterol/HDL Ratio 3.8 (0.0-5.0) 02/15/19 05:30 Specimen Type Catherized urine 02/15/19 02:15 Urine Color Yellow (YELLOW) 02/15/19 02:15 Urine Appearance Clear (CLEAR) 02/15/19 02:15 Urine pH 6.0 (5.0 - 8.0) 02/15/19 02:15 Ur Specific [place] 1.015 (1.000-1.030) 02/15/19 02:15 Urine Protein 4+ (NEGATIVE) 02/15/19 02:15 Urine Glucose (UA) 4+ (NEGATIVE) 02/15/19 02:15 Urine Ketones 2+ (NEGATIVE) 02/15/19 02:15 Urine Occult Blood 1+ (NEGATIVE) 02/15/19 02:15 Urine Nitrite Negative (NEGATIVE) 02/15/19 02:15 Urine Bilirubin Negative (NEGATIVE) 02/15/19 02:15 Urine Urobilinogen Normal (NORMAL) 02/15/19 02:15 Ur Leukocyte Esterase Negative (NEGATIVE) 02/15/19 02:15 Urine RBC 0-2 /HPF (NONE SEEN) 02/15/19 02:15 Urine WBC None seen /HPF (NONE SEEN) 02/15/19 02:15 Ur Squamous Epith Cells Rare /HPF (NEGATIVE) 02/15/19 02:15 Amorphous Sediment 1+ /HPF (NEGATIVE) 02/15/19 02:15 Urine Bacteria Trace /HPF (NEGATIVE) 02/15/19 02:15 Ur Culture Indicated? No/not indicated 02/15/19 02:15 - Plan (1) Hypertensive urgency, malignant Status: Acute Plan: DECREASE COREG TO 6.25MG PO BID, START AMLODIPINE 5MG PO DAILY, RESTART CLONIDINE PATCH, CONTINUE TO MONITOR (2) Brain TIA Status: Acute
[2019-02-17] MEDS: ASPIRIN EC 81 MG PO SCH (09:11)
[2019-02-17] MEDS: ACTOS PO SCH (09:11)
[2019-02-17] MEDS: FOLIC ACID TAB 1 MG PO SCH (09:12)
[2019-02-17] MEDS: ELAVIL PO SCH (09:12)
[2019-02-17] MEDS: NORVASC TAB 5 MG PO SCH (09:12)
[2019-02-17] MEDS: COREG TAB 6.25 MG PO SCH ×2 (09:12→20:23)
[2019-02-17] MEDS: NexIUM PO SCH (09:13)
[2019-02-17] MEDS: XARELTO PO SCH ×2 (09:13→20:23)
[2019-02-17] MEDS ORDERED: NORVASC TAB 5 MG PO ONE (09:31)
[2019-02-17] MEDS ORDERED: CATAPRES-TTS-3 TD SCH (10:00)
--- NOTE | 2019-02-17 13:36 | RAD ---
History: Abdominal pain Study: Supine abdomen Comparison: None Findings: The bowel gas pattern is unremarkable. There are cholecystectomy clips. There is vascular calcification without demonstration of an aneurysm. Impression: No acute disease Reported By:
[2019-02-17] MEDS: LIPITOR TAB 40 MG PO SCH (20:23)
[2019-02-17] MEDS: HumuLIN R SC PRN (20:25)
[2019-02-18] MEDS: NS 1000 ML 1,000 ML IV SCH ×5 (02:34→18:13)
[2019-02-18] MEDS: NORMODYNE INJ 20 MG VIAL IVP PRN ×2 (02:35→06:24)
[2019-02-18 06:20] LABS: BASOPHILS # (AUTO) 0.1 X10^3/uL (0.0-0.1); BASOPHILS % (AUTO) 0.7 % (0.2-1.0); EOSINOPHILS # (AUTO) 0.3 x10^3/uL (0.0-0.2); EOSINOPHILS % (AUTO) 3.4 % (0.9-2.9); HEMATOCRIT 28.9 % (36.0-47.0); HEMOGLOBIN 10.1 g/dL (12.0-16.0); LYMPHOCYTES # (AUTO) 1.5 X10^3/uL (1.3-2.9); LYMPHOCYTES % (AUTO) 19.6 % (21.0-51.0); MEAN CORPUSCULAR HEMOGLOBIN 31.8 pg (27.0-34.0); MEAN CORPUSCULAR HGB CONC 34.9 g/dL (33.0-35.0); MEAN CORPUSCULAR VOLUME 91.1 fL (80.0-100.0); MEAN PLATELET VOLUME 8.8 fL (7.4-11.0); MONOCYTES # (AUTO) 0.6 x10^3/uL (0.3-0.8); MONOCYTES % (AUTO) 8.2 % (0.0-13.0); NEUTROPHILS # (AUTO) 5.2 x10^3/uL (2.2-4.8); NEUTROPHILS % (AUTO) 68.1 % (42.0-75.0); PLATELET COUNT 242 X10^3/uL (150.0-450.0); RED BLOOD COUNT 3.17 X10^6/uL (3.5-5.4); RED CELL DISTRIBUTION WIDTH 13.6 % (11.6-16.5); WHITE BLOOD COUNT 7.7 X10^3/uL (3.6-10.0)
[2019-02-18 06:33] LABS: CALCIUM 8.5 mg/dL (8.5-10.1); CARBON DIOXIDE 21.8 mmol/L (21-32); COR CA(FOR HYPOALB) 10.1 mg/dL (8.5-10.1); CREATININE 1.14 mg/dL (0.55-1.02); TOTAL PROTEIN 5.4 g/dL (6.4-8.2)
[2019-02-18] MEDS: FOLIC ACID TAB 1 MG PO SCH (08:53)
[2019-02-18] MEDS: ASPIRIN EC 81 MG PO SCH (08:53)
[2019-02-18] MEDS: NexIUM PO SCH (08:54)
[2019-02-18] MEDS: K-DUR TAB 20 MEQ PO PRN (08:54)
[2019-02-18] MEDS: ACTOS PO SCH (08:54)
[2019-02-18] MEDS: COREG TAB 6.25 MG PO SCH ×2 (08:54→21:21)
[2019-02-18] MEDS: ELAVIL PO SCH (08:54)
[2019-02-18] MEDS: XARELTO PO SCH ×2 (08:54→21:22)
[2019-02-18] MEDS: NORVASC TAB 10 MG PO SCH (08:54)
--- NOTE | 2019-02-18 09:28 | PCM.PROG ---
Progress Note - Progress Note for Day of Date of Exam: 02/17/19 - Subjective Subjective: WAS ADMITTED FOR HYPERTENSIVE URGENCY AND TIA. TODAY, SHE IS ALERT AND ORIENTED, LYING IN BED ON MORNING ROUNDS. SHE REPORTS WEAKNESS AND ABDOMINAL PAIN TODAY. SHE CONTINUES TO BE HYPERTENSIVE ACCORDING TO STAFF. ON EXAMINATION, HEART IS REGULAR IN RATE AND RHYTHM. BILATERAL LUNGS ARE NOTED WITH DIMINISHED LUNG SOUNDS THROUGHOUT. ABDOMEN IS ROUND, SOFT, AND NOTED WITH MILD, DIFFUSE TENDERNESS. NORMAL BOWEL SOUNDS NOTED IN ALL QUADRANTS. HER VITALS THIS MORNING ARE 97.8-60-20-97%-215/96. LABS WERE OBTAINED. ABNORMAL LAB VALUES INCLUDE THE FOLLOWING: RBC 3.14, HGB 9.9, HCT 28.7, CREATININE 1.14, GLUCOSE 177, MAGNESIUM 1.4, AST 14, TOTAL PROTEIN 5.4, ALBUMIN 2.0. BLOOD CULTURES ARE PENDING. TODAY, WE WILL INCREASE HER CLONIDINE PATCH TO 0.3MG AND INCREASE NORVAS TO 10MG PO DAILY. WE WILL ALSO OBTAIN AN ECHO AND KUB. PHYSICAL THERAPY IS WORKING WITH PATIENT. OTHERWISE, WE WILL CONTINUE WITH CURRENT PLAN OF CARE. WE WILL FOLLOW-UP WITH AM LABS AND CONTINUE TO MONITOR. - Past Medical Family Social History Past Med/Fam/Surg Hx: No changes since H&P Allergies: Allergies codeine Allergy (Verified 09/18/18 12:31) meperidine [From Demerol] Allergy (Verified 09/18/18 12:31) - Review of Systems ROS: No change since H&P - Vital Signs and I&O's Vital Signs: Temperature 99.0 F Pulse Rate [Apical] 62 Pulse Rate 121 Respiratory Rate 22 Blood Pressure [Left Arm] 190/79 Blood Pressure [Right Arm] 172/74 Blood Pressure 256/130 O2 Sat by Pulse Oximetry 99 Intake and Output: Intake & Output 02/15/19 02/16/19 02/17/19 02/18/19 11:59 11:59 11:59 11:59 Intake Total 400 / 400 2321 / 2321 5312 / 5312 4921 / 4921 Output Total 601 / 601 650 / 650 2350 / 2350 2385 / 2385 Balance -201 / -201 1671 / 1671 2962 / 2962 2536 / 2536 - Physical Exam Oriented: Normal Eyes: Normal Ear: Normal Nose: Normal Throat: Normal Respiratory: Generalized, Diminished Cardiovascular: Normal. negative: S3, S4, Murmur : Normal Auscultation: Bowel Sounds: Normal Palpation: Normal Tenderness: Normal Skin: Normal Musculoskeletal: Normal Mood Description: Calm Speech Pattern: Clear, Appropriate - Laboratory and Diagnostics Result Diagrams: 02/18/19 05:25 02/18/19 05:25 Labs: 02/15/19 06:00 Blood Blood Culture - Preliminary 02/15/19 06:15 Blood Blood Culture - Preliminary Laboratory WBC 7.7 X10^3/uL (3.6-10.0) 02/18/19 05:25 RBC 3.17 X10^6/uL (3.5-5.4) L 02/18/19 05:25 Hgb 10.1 g/dL (12.0-16.0) L 02/18/19 05:25 Hct 28.9 % (36.0-47.0) L 02/18/19 05:25 MCV 91.1 fL (80.0-100.0) 02/18/19 05:25 MCH 31.8 pg (27.0-34.0) 02/18/19 05:25 MCHC 34.9 g/dL (33.0-35.0) 02/18/19 05:25 RDW 13.6 % (11.6-16.5) 02/18/19 05:25 Plt Count 242 X10^3/uL (150.0-450.0) 02/18/19 05:25 MPV 8.8 fL (7.4-11.0) 02/18/19 05:25 Neut % (Auto) 68.1 % (42.0-75.0) 02/18/19 05:25 Lymph % (Auto) 19.6 % (21.0-51.0) L 02/18/19 05:25 [place] % (Auto) 8.2 % (0.0-13.0) 02/18/19 05:25 Eos % (Auto) 3.4 % (0.9-2.9) H 02/18/19 05:25 Baso % (Auto) 0.7 % (0.2-1.0) 02/18/19 05:25 Neut # (Auto) 5.2 x10^3/uL (2.2-4.8) H 02/18/19 05:25 Lymph # (Auto) 1.5 X10^3/uL (1.3-2.9) 02/18/19 05:25 [place] # (Auto) 0.6 x10^3/uL (0.3-0.8) 02/18/19 05:25 Eos # (Auto) 0.3 x10^3/uL (0.0-0.2) H 02/18/19 05:25 Baso # (Auto) 0.1 X10^3/uL (0.0-0.1) 02/18/19 05:25 Absolute Nucleated RBC 0.0 /100WBC 02/18/19 05:25 INR Target Range - 02/15/19 05:30 INR 1.07 (0.8-1.3) 02/15/19 05:30 APTT 25.8 SECONDS (22.9-36.5) 02/15/19 05:30 PTT Comment - 02/15/19 05:30 Fibrinogen 448 mg/dL (239-489) 02/14/19 20:29 Sodium 139 mmol/L (136-145) 02/18/19 05:25 Corrected Sodium 141 mmol/L (136-145) 02/18/19 05:25 Potassium 3.5 mmol/L (3.5-5.1) 02/18/19 05:25 Chloride 107 mmol/L (98-107) 02/18/19 05:25 Carbon Dioxide 21.8 mmol/L (21-32) 02/18/19 05:25 BUN 11 mg/dL (7-18) 02/18/19 05:25 Creatinine 1.14 mg/dL (0.55-1.02) H 02/18/19 05:25 Est GFR (MDRD) Af Amer 58 (>60) L 02/18/19 05:25 Est GFR (MDRD) Non-Af 48 (>60) L 02/18/19 05:25 Glucose 177 mg/dL (65-99) H 02/18/19 05:25 POC Glucose (mg/dL) 177 mg/dL (65-99) H 02/18/19 05:26 Calcium 8.5 mg/dL (8.5-10.1) 02/18/19 05:25 Corrected Calcium 10.1 mg/dL (8.5-10.1) 02/18/19 05:25 Magnesium 1.4 mg/dL (1.7-2.9) L 02/18/19 05:25 Total Bilirubin 0.20 mg/dL (0.2-1.0) 02/18/19 05:25 AST 14 Units/L (15-37) L 02/18/19 05:25 ALT 16 Units/L (12-78) 02/18/19 05:25 Alkaline Phosphatase 66 Units/L (46-116) 02/18/19 05:25 Total Protein 5.4 g/dL (6.4-8.2) L 02/18/19 05:25 Albumin 2.0 g/dL (3.4-5.0) L 02/18/19 05:25 Globulin 3.4 g/dL (2.5-4.5) 02/18/19 05:25 Albumin/Globulin Ratio 0.6 Ratio (1.1-2.1) L 02/18/19 05:25 Triglycerides 212 mg/dL (0-150) H 02/15/19 05:30 Cholesterol 175 mg/dL (0-200) 02/15/19 05:30 LDL Cholesterol, Calc 87 mg/dL (0-100) 02/15/19 05:30 HDL Cholesterol 46 mg/dL (40-60) 02/15/19 05:30 Cholesterol/HDL Ratio 3.8 (0.0-5.0) 02/15/19 05:30 Specimen Type Catherized urine 02/15/19 02:15 Urine Color Yellow (YELLOW) 02/15/19 02:15 Urine Appearance Clear (CLEAR) 02/15/19 02:15 Urine pH 6.0 (5.0 - 8.0) 02/15/19 02:15 Ur Specific [place] 1.015 (1.000-1.030) 02/15/19 02:15 Urine Protein 4+ (NEGATIVE) 02/15/19 02:15 Urine Glucose (UA) 4+ (NEGATIVE) 02/15/19 02:15 Urine Ketones 2+ (NEGATIVE) 02/15/19 02:15 Urine Occult Blood 1+ (NEGATIVE) 02/15/19 02:15 Urine Nitrite Negative (NEGATIVE) 02/15/19 02:15 Urine Bilirubin Negative (NEGATIVE) 02/15/19 02:15 Urine Urobilinogen Normal (NORMAL) 02/15/19 02:15 Ur Leukocyte Esterase Negative (NEGATIVE) 02/15/19 02:15 Urine RBC 0-2 /HPF (NONE SEEN) 02/15/19 02:15 Urine WBC None seen /HPF (NONE SEEN) 02/15/19 02:15 Ur Squamous Epith Cells Rare /HPF (NEGATIVE) 02/15/19 02:15 Amorphous Sediment 1+ /HPF (NEGATIVE) 02/15/19 02:15 Urine Bacteria Trace /HPF (NEGATIVE) 02/15/19 02:15 Ur Culture Indicated? No/not indicated 02/15/19 02:15 - Plan (1) Hypertensive urgency, malignant Status: Acute Plan: DECREASE COREG TO 6.25MG PO BID, START AMLODIPINE 10MG PO DAILY, RESTART CLONIDINE PATCH, CONTINUE TO MONITOR (2) Brain TIA Status: Acute
[2019-02-18] MEDS ORDERED: MAG-OX TAB ONE (09:40)
[2019-02-18] MEDS: MAG-OX TAB PO SCH (10:01)
[2019-02-18] MEDS: COZAAR PO SCH (10:01)
[2019-02-18] MEDS: HumuLIN R SC PRN ×3 (10:51→21:27)
[2019-02-18] MEDS: TYLENOL 325 MG TAB PO PRN (17:11)
[2019-02-18] MEDS: LIPITOR TAB 40 MG PO SCH (21:21)
[2019-02-19] MEDS: NS 1000 ML 1,000 ML IV SCH ×3 (04:19→10:10)
[2019-02-19 05:31] LABS: BASOPHILS # (AUTO) 0.1 X10^3/uL (0.0-0.1); BASOPHILS % (AUTO) 0.8 % (0.2-1.0); EOSINOPHILS # (AUTO) 0.3 x10^3/uL (0.0-0.2); EOSINOPHILS % (AUTO) 4.1 % (0.9-2.9); HEMATOCRIT 28.9 % (36.0-47.0); LYMPHOCYTES # (AUTO) 1.4 X10^3/uL (1.3-2.9); LYMPHOCYTES % (AUTO) 20.1 % (21.0-51.0); MEAN CORPUSCULAR HEMOGLOBIN 31.7 pg (27.0-34.0); MEAN CORPUSCULAR HGB CONC 34.6 g/dL (33.0-35.0); MEAN CORPUSCULAR VOLUME 91.8 fL (80.0-100.0); MEAN PLATELET VOLUME 8.6 fL (7.4-11.0); MONOCYTES # (AUTO) 0.6 x10^3/uL (0.3-0.8); MONOCYTES % (AUTO) 9.4 % (0.0-13.0); NEUTROPHILS # (AUTO) 4.5 x10^3/uL (2.2-4.8); NEUTROPHILS % (AUTO) 65.6 % (42.0-75.0); PLATELET COUNT 247 X10^3/uL (150.0-450.0); RED BLOOD COUNT 3.14 X10^6/uL (3.5-5.4); WHITE BLOOD COUNT 6.9 X10^3/uL (3.6-10.0)
[2019-02-19 05:44] LABS: ALBUMIN 1.8 g/dL (3.4-5.0); CALCIUM 8.5 mg/dL (8.5-10.1); CARBON DIOXIDE 21.2 mmol/L (21-32); COR CA(FOR HYPOALB) 10.3 mg/dL (8.5-10.1); CREATININE 1.21 mg/dL (0.55-1.02); MAGNESIUM 1.4 mg/dL (1.7-2.9); TOTAL PROTEIN 5.1 g/dL (6.4-8.2)
[2019-02-19] MEDS: MAG-OX TAB PO SCH (06:12)
[2019-02-19] MEDS: HumuLIN R SC PRN ×2 (06:13→11:10)
[2019-02-19] MEDS: NORMODYNE INJ 20 MG VIAL IVP PRN (06:14)
[2019-02-19] MEDS ORDERED: MAG-OX TAB PO SCH (07:00)
[2019-02-19] MEDS: ELAVIL PO SCH (09:24)
[2019-02-19] MEDS: COZAAR PO SCH (09:24)
[2019-02-19] MEDS: ACTOS PO SCH (09:24)
[2019-02-19] MEDS: ASPIRIN EC 81 MG PO SCH (09:25)
[2019-02-19] MEDS: XARELTO PO SCH (09:25)
[2019-02-19] MEDS: NORVASC TAB 10 MG PO SCH (09:25)
[2019-02-19] MEDS: COREG TAB 6.25 MG PO SCH (09:25)
[2019-02-19] MEDS: FOLIC ACID TAB 1 MG PO SCH (09:25)
[2019-02-19] MEDS: NexIUM PO SCH (09:25)
[2019-02-19] MEDS: K-DUR TAB 20 MEQ PO PRN (09:25)
--- NOTE | 2019-02-19 09:58 | PCM.PROG ---
Progress Note - Progress Note for Day of Date of Exam: 02/18/19 - Subjective Subjective: WAS ADMITTED FOR HYPERTENSIVE URGENCY AND TIA. TODAY, SHE IS ALERT AND ORIENTED, LYING IN BED ON MORNING ROUNDS. SHE CONTINUES WITH WEAKNESS, BUT DENIES OTHER COMPLAINTS TODAY. SHE CONTINUES TO BE HYPERTENSIVE ACCORDING TO STAFF. ON EXAMINATION, HEART IS REGULAR IN RATE AND RHYTHM. BILATERAL LUNGS ARE NOTED WITH DIMINISHED LUNG SOUNDS THROUGHOUT. ABDOMEN IS ROUND, SOFT, AND NOTED WITH MILD, DIFFUSE TENDERNESS. NORMAL BOWEL SOUNDS NOTED IN ALL QUADRANTS. HER VITALS THIS MORNING ARE 99.0-64-21-98%-193/81. LABS WERE OBTAINED. ABNORMAL LAB VALUES INCLUDE THE FOLLOWING: RBC 3.17, HGB 10.1, HCT 28.9, CREATININE 1.14, GLUCOSE 177, MAGNESIUM 1.4, AST 14, TOTAL PROTEIN 5.4, ALBUMIN 2.0. BLOOD CULTURES ARE PENDING. AN ECHO WAS OBTAINED YESTERDAY AND REVEALED AN EJECTION FRACTION OF 59%, MILD LVH, TRACE MR/TR, RVSP 16 mmHG. TODAY, WE WILL START LOSARTAN 50MG PO DAILY. PHYSICAL THERAPY IS WORKING WITH PATIENT. OTHERWISE, WE WILL CONTINUE WITH CURRENT PLAN OF CARE. WE WILL FOLLOW-U P WITH AM LABS AND CONTINUE TO MONITOR. - Past Medical Family Social History Past Med/Fam/Surg Hx: No changes since H&P Allergies: Allergies codeine Allergy (Verified 09/18/18 12:31) meperidine [From Demerol] Allergy (Verified 09/18/18 12:31) - Review of Systems ROS: No change since H&P - Vital Signs and I&O's Vital Signs: Temperature 98.2 F Pulse Rate [Apical] 60 Pulse Rate 121 Respiratory Rate 19 Blood Pressure [Left Arm] 178/76 Blood Pressure [Right Arm] 172/74 Blood Pressure 256/130 O2 Sat by Pulse Oximetry 97 Intake and Output: Intake & Output 02/16/19 02/17/19 02/18/19 02/19/19 11:59 11:59 11:59 11:59 Intake Total 2321 / 2321 5312 / 5312 4921 / 4921 2741 / 2741 Output Total 650 / 650 2350 / 2350 2385 / 2385 Balance 1671 / 1671 2962 / 2962 2536 / 2536 2741 / 2741 - Physical Exam Oriented: Normal Eyes: Normal Ear: Normal Nose: Normal Throat: Normal Respiratory: Generalized, Diminished Cardiovascular: Normal. negative: S3, S4, Murmur : Normal Auscultation: Bowel Sounds: Normal Tenderness: Normal Skin: Normal Musculoskeletal: Normal Mood Description: Calm Speech Pattern: Clear, Appropriate - Laboratory and Diagnostics Result Diagrams: 02/19/19 05:20 02/19/19 05:20 Labs: 02/15/19 06:00 Blood Blood Culture - Preliminary 02/15/19 06:15 Blood Blood Culture - Preliminary Laboratory WBC 6.9 X10^3/uL (3.6-10.0) 02/19/19 05:20 RBC 3.14 X10^6/uL (3.5-5.4) L 02/19/19 05:20 Hgb 10.0 g/dL (12.0-16.0) L 02/19/19 05:20 Hct 28.9 % (36.0-47.0) L 02/19/19 05:20 MCV 91.8 fL (80.0-100.0) 02/19/19 05:20 MCH 31.7 pg (27.0-34.0) 02/19/19 05:20 MCHC 34.6 g/dL (33.0-35.0) 02/19/19 05:20 RDW 14.0 % (11.6-16.5) 02/19/19 05:20 Plt Count 247 X10^3/uL (150.0-450.0) 02/19/19 05:20 MPV 8.6 fL (7.4-11.0) 02/19/19 05:20 Neut % (Auto) 65.6 % (42.0-75.0) 02/19/19 05:20 Lymph % (Auto) 20.1 % (21.0-51.0) L 02/19/19 05:20 [place] % (Auto) 9.4 % (0.0-13.0) 02/19/19 05:20 Eos % (Auto) 4.1 % (0.9-2.9) H 02/19/19 05:20 Baso % (Auto) 0.8 % (0.2-1.0) 02/19/19 05:20 Neut # (Auto) 4.5 x10^3/uL (2.2-4.8) 02/19/19 05:20 Lymph # (Auto) 1.4 X10^3/uL (1.3-2.9) 02/19/19 05:20 [place] # (Auto) 0.6 x10^3/uL (0.3-0.8) 02/19/19 05:20 Eos # (Auto) 0.3 x10^3/uL (0.0-0.2) H 02/19/19 05:20 Baso # (Auto) 0.1 X10^3/uL (0.0-0.1) 02/19/19 05:20 Absolute Nucleated RBC 0.1 /100WBC 02/19/19 05:20 INR Target Range - 02/15/19 05:30 INR 1.07 (0.8-1.3) 02/15/19 05:30 APTT 25.8 SECONDS (22.9-36.5) 02/15/19 05:30 PTT Comment - 02/15/19 05:30 Fibrinogen 448 mg/dL (239-489) 02/14/19 20:29 Sodium 139 mmol/L (136-145) 02/19/19 05:20 Corrected Sodium 141 mmol/L (136-145) 02/19/19 05:20 Potassium 3.7 mmol/L (3.5-5.1) 02/19/19 05:20 Chloride 108 mmol/L (98-107) H 02/19/19 05:20 Carbon Dioxide 21.2 mmol/L (21-32) 02/19/19 05:20 BUN 13 mg/dL (7-18) 02/19/19 05:20 Creatinine 1.21 mg/dL (0.55-1.02) H 02/19/19 05:20 Est GFR (MDRD) Af Amer 54 (>60) L 02/19/19 05:20 Est GFR (MDRD) Non-Af 45 (>60) L 02/19/19 05:20 Glucose 184 mg/dL (65-99) H 02/19/19 05:20 POC Glucose (mg/dL) 174 mg/dL (65-99) H 02/19/19 05:18 Calcium 8.5 mg/dL (8.5-10.1) 02/19/19 05:20 Corrected Calcium 10.3 mg/dL (8.5-10.1) H 02/19/19 05:20 Magnesium 1.4 mg/dL (1.7-2.9) L 02/19/19 05:20 Total Bilirubin 0.20 mg/dL (0.2-1.0) 02/19/19 05:20 AST 11 Units/L (15-37) L 02/19/19 05:20 ALT 12 Units/L (12-78) 02/19/19 05:20 Alkaline Phosphatase 63 Units/L (46-116) 02/19/19 05:20 Total Protein 5.1 g/dL (6.4-8.2) L 02/19/19 05:20 Albumin 1.8 g/dL (3.4-5.0) L 02/19/19 05:20 Globulin 3.3 g/dL (2.5-4.5) 02/19/19 05:20 Albumin/Globulin Ratio 0.5 Ratio (1.1-2.1) L 02/19/19 05:20 Triglycerides 212 mg/dL (0-150) H 02/15/19 05:30 Cholesterol 175 mg/dL (0-200) 02/15/19 05:30 LDL Cholesterol, Calc 87 mg/dL (0-100) 02/15/19 05:30 HDL Cholesterol 46 mg/dL (40-60) 02/15/19 05:30 Cholesterol/HDL Ratio 3.8 (0.0-5.0) 02/15/19 05:30 Specimen Type Catherized urine 02/15/19 02:15 Urine Color Yellow (YELLOW) 02/15/19 02:15 Urine Appearance Clear (CLEAR) 02/15/19 02:15 Urine pH 6.0 (5.0 - 8.0) 02/15/19 02:15 Ur Specific [place] 1.015 (1.000-1.030) 02/15/19 02:15 Urine Protein 4+ (NEGATIVE) 02/15/19 02:15 Urine Glucose (UA) 4+ (NEGATIVE) 02/15/19 02:15 Urine Ketones 2+ (NEGATIVE) 02/15/19 02:15 Urine Occult Blood 1+ (NEGATIVE) 02/15/19 02:15 Urine Nitrite Negative (NEGATIVE) 02/15/19 02:15 Urine Bilirubin Negative (NEGATIVE) 02/15/19 02:15 Urine Urobilinogen Normal (NORMAL) 02/15/19 02:15 Ur Leukocyte Esterase Negative (NEGATIVE) 02/15/19 02:15 Urine RBC 0-2 /HPF (NONE SEEN) 02/15/19 02:15 Urine WBC None seen /HPF (NONE SEEN) 02/15/19 02:15 Ur Squamous Epith Cells Rare /HPF (NEGATIVE) 02/15/19 02:15 Amorphous Sediment 1+ /HPF (NEGATIVE) 02/15/19 02:15 Urine Bacteria Trace /HPF (NEGATIVE) 02/15/19 02:15 Ur Culture Indicated? No/not indicated 02/15/19 02:15 - Plan (1) Hypertensive urgency, malignant Status: Acute Plan: COREG 6.25MG PO BID, AMLODIPINE 10MG PO DAILY, CLONIDINE PATCH, LOSARTAN 50MG PO DAILY, CONTINUE TO MONITOR (2) Brain TIA Status: Acute
[2019-02-19 12:04] VITALS: BP 171/75
== END 2019-02-19 12:50 | disposition home or self-care (01) | DRG 305 ==
LOC: ER 19:32 → INTOOBSV 21:43 → ICU 21:43
PROVIDERS: ADMIT Obstetrics & Gynecology Obstetrics; ATTEND Internal Medicine
DX: R11.2 Nausea with vomiting, unspecified; R26.89 Other abnormalities of gait and mobility; I16.0 Hypertensive urgency; G45.8 Other transient cerebral ischemic attacks and related syndromes; R94.4 Abnormal results of kidney function studies; R53.1 Weakness; R94.31 Abnormal electrocardiogram [ECG] [EKG]; E78.2 Mixed hyperlipidemia; E11.65 Type 2 diabetes mellitus with hyperglycemia; R47.81 Slurred speech; R10.84 Generalized abdominal pain; R41.82 Altered mental status, unspecified; R52 Pain, unspecified
CPT/HCPCS: 36415; 70450; 71010; 71045; 74000; 74018; 80053; 80061; 81001; 83735; 85025; 85384; 85610; 85730; 87040; 93005; 93306; 96365; 96374; 97116; 97162; 97166; 97530; 99284; A4222; G0378; J1815; J2405; J3475; J3490; J7030

== ENCOUNTER 2019-04-28 16:39 | Inpatient (IN) ==
--- NOTE | 2019-04-28 16:51 | DR.AMS ---
HPI Time Seen Time Seen by Provider: 04/28/19 16:47 HPI Comment HPI Comment: Patient is pale non verbal Complaint Cheif Complaint Doctors Comments: To the ED via EMS non-verbal PMH PMH Past Medical History: Coronary Artery Disease, Diabetes, Hypertension, Kidney Stones and Renal Disease Past Surgical History: Yes Surgical History: Cholecystectomy and Hysterectomy Family History Family Medical History: Cancer Social History Do you use any recreational Drugs:: No ROS Review of Systems Eyes: Photophobia Respiratoy: See HPI Cardiovascular: See HPI Gastrointestinal/Abdominal: No Symptoms Reported Genitourinary: No Symptoms Reported Neurological: No Symptoms Reported Musculoskeletal: No Symptoms Reported Integumentary: No Symptoms Reported Hematologic/Lymphatic: No Symptoms Reported Endocrine: No Symptoms Reported Psychiatric: No Symptoms Reported All Other Systems: Reviewed and Negative PE Vitals Vital Signs: Temp Pulse Pulse Pulse Resp BP BP 04/29/19 03:45 64 21 118/57 04/29/19 03:30 64 21 125/61 04/29/19 03:15 68 42 H 117/56 04/29/19 03:00 65 53 H 127/58 04/29/19 02:45 66 50 H 160/70 04/29/19 02:30 75 41 H 118/53 04/29/19 02:15 72 41 H 113/55 04/29/19 02:00 68 37 H 106/51 04/29/19 01:45 65 22 109/53 04/29/19 01:30 65 21 120/57 04/29/19 01:15 69 28 H 137/65 04/29/19 01:00 72 41 H 132/59 04/29/19 00:45 70 40 H 117/56 04/29/19 00:30 66 35 H 131/59 04/29/19 00:15 68 37 H 160/71 04/29/19 00:00 99.5 F 73 31 H 143/61 04/28/19 23:45 77 53 H 138/60 04/28/19 23:30 73 40 H 144/66 04/28/19 23:15 69 20 159/71 04/28/19 23:00 74 22 167/74 04/28/19 22:45 77 59 H 189/78 04/28/19 22:30 80 40 H 198/79 04/28/19 22:16 104 H 40 H 157/58 04/28/19 22:15 91 H 42 H 04/28/19 22:14 80 41 H 176/72 04/28/19 22:11 81 38 H 199/81 04/28/19 22:00 99.3 F 80 04/28/19 21:45 70 04/28/19 21:30 77 04/28/19 21:15 77 04/28/19 21:00 80 32 H 04/28/19 20:45 79 28 H 04/28/19 20:30 81 31 H 04/28/19 20:19 84 84 26 H 04/28/19 20:00 89 28 H 04/28/19 19:51 97 H 24 04/28/19 19:35 24 04/28/19 19:11 85 04/28/19 19:00 22 04/28/19 18:56 04/28/19 18:31 97 H 26 H 180/86 04/28/19 18:03 99.3 F 97 H 25 H 230/93 04/28/19 17:46 91 H 20 240/110 04/28/19 17:22 104 H 24 242/105 04/28/19 17:17 93 H 23 176/89 04/28/19 17:06 104 H 22 243/109 04/28/19 17:00 111 H 22 211/90 04/28/19 16:51 99.2 F 103 H 18 211/93 03/20/19 11:20 133/68 02/19/19 12:00 171/75 08/09/18 21:45 BP Pulse Ox 04/29/19 03:45 100 04/29/19 03:30 100 04/29/19 03:15 100 04/29/19 03:00 100 04/29/19 02:45 100 04/29/19 02:30 100 04/29/19 02:15 100 04/29/19 02:00 100 04/29/19 01:45 100 04/29/19 01:30 99 04/29/19 01:15 99 04/29/19 01:00 100 04/29/19 00:45 100 04/29/19 00:30 100 04/29/19 00:15 100 04/29/19 00:00 100 04/28/19 23:45 100 04/28/19 23:30 100 04/28/19 23:15 100 04/28/19 23:00 100 04/28/19 22:45 04/28/19 22:30 100 04/28/19 22:16 100 04/28/19 22:15 100 04/28/19 22:14 100 04/28/19 22:11 100 04/28/19 22:00 99 04/28/19 21:45 171/70 100 04/28/19 21:30 174/74 100 04/28/19 21:15 198/81 100 04/28/19 21:00 170/78 04/28/19 20:45 190/88 99 04/28/19 20:30 195/89 98 04/28/19 20:19 237/110 100 04/28/19 20:00 146/67 100 04/28/19 19:51 100 04/28/19 19:35 225/88 100 04/28/19 19:11 186/74 100 04/28/19 19:00 228/95 100 04/28/19 18:56 179/71 04/28/19 18:31 100 04/28/19 18:03 100 04/28/19 17:46 100 04/28/19 17:22 04/28/19 17:17 100 04/28/19 17:06 04/28/19 17:00 100 04/28/19 16:51 96 03/20/19 11:20 02/19/19 12:00 08/09/18 21:45 172/74 General Limitations: No Limitations General Appearance: Alert, In No Apparent Distress and Appears Intoxicated Head Head Exam: Normal Inspection, Atraumatic and Normocephalic Eyes Eye exam: Normal Appearance, PERRL and EOMI Pupils: Regular, Round: Bilateral ENT ENT Exam: Normal Exam, Normal Oropharynx and Normal External Ear Exam External Ear Exam: Normal External Inspection TM/Canal Exam: Bilateral: Normal Nose Exam: Normal Nose Exam Mouth Exam: Normal Inspection Throat Exam: Normal Inspection Neck Neck Exam: Normal Inspection and Full ROM Chest Chest Inspection: Normal Inspection Respiratory Respiratory Exam: Normal Lung Sounds Bilat Respiratory Exam: Bilateral: Clear to Auscultation Cardiovascular Cardiovascular Exam: Regular Rate and Normal Rhythm Abdominal Exam Abdominal Exam: Normal Inspection, Normal Bowel Sounds and Soft Abdominal Tenderness: RUQ Extremities Extremities Exam: Normal Inspection Neurological Neurological Exam: Other (depresses sensorium) Cranial Nerve Exam: EOM Function (II, III, IV, ): Normal Skin Skin Exam: Warm, Dry, Intact and Normal Color COURSE Treatment Treatment: Potassium chloride supplement ROR Labs Reviewed Result Diagrams: 04/28/19 17:33 04/28/19 17:33 Laboratory: WBC 11.5 X10^3/uL (3.6-10.0) H 04/28/19 17:33 RBC 4.08 X10^6/uL (3.5-5.4) 04/28/19 17:33 Hgb 12.6 g/dL (12.0-16.0) 04/28/19 17:33 Hct 36.5 % (36.0-47.0) 04/28/19 17:33 MCV 89.3 fL (80.0-100.0) 04/28/19 17:33 MCH 30.9 pg (27.0-34.0) 04/28/19 17:33 MCHC 34.6 g/dL (33.0-35.0) 04/28/19 17:33 RDW 14.6 % (11.6-16.5) 04/28/19 17:33 Plt Count 357 X10^3/uL (150.0-450.0) 04/28/19 17:33 MPV 7.5 fL (7.4-11.0) 04/28/19 17:33 Neut % (Auto) 87.8 % (42.0-75.0) H 04/28/19 17:33 Lymph % (Auto) 8.7 % (21.0-51.0) L 04/28/19 17:33 Rawlins % (Auto) 3.0 % (0.0-13.0) 04/28/19 17:33 Eos % (Auto) 0.0 % (0.9-2.9) L 04/28/19 17:33 Baso % (Auto) 0.5 % (0.2-1.0) 04/28/19 17:33 Neut # (Auto) 10.1 x10^3/uL (2.2-4.8) H 04/28/19 17:33 Lymph # (Auto) 1.0 X10^3/uL (1.3-2.9) L 04/28/19 17:33 Rawlins # (Auto) 0.4 x10^3/uL (0.3-0.8) 04/28/19 17:33 Eos # (Auto) 0.0 x10^3/uL (0.0-0.2) 04/28/19 17:33 Baso # (Auto) 0.1 X10^3/uL (0.0-0.1) 04/28/19 17:33 Absolute Nucleated RBC 0.0 /100WBC 04/28/19 17:33 INR Target Range - 04/28/19 17:33 INR 1.03 (0.8-1.3) 04/28/19 17:33 APTT 21.3 SECONDS (22.9-36.5) L 04/28/19 17:33 PTT Comment - 04/28/19 17:33 Sodium 137 mmol/L (136-145) 04/28/19 17:33 Corrected Sodium 141 mmol/L (136-145) 04/28/19 17:33 Potassium 2.9 mmol/L (3.5-5.1) L* 04/28/19 17:33 Chloride 104 mmol/L (98-107) 04/28/19 17:33 Carbon Dioxide 22.5 mmol/L (21-32) 04/28/19 17:33 BUN 18 mg/dL (7-18) 04/28/19 17:33 Creatinine 1.81 mg/dL (0.55-1.02) H 04/28/19 17:33 Est GFR (MDRD) Af Amer 34 (>60) L 04/28/19 17:33 Est GFR (MDRD) Non-Af 28 (>60) L 04/28/19 17:33 Glucose 254 mg/dL (65-99) H 04/28/19 17:33 Calcium 9.5 mg/dL (8.5-10.1) 04/28/19 17:33 Corrected Calcium 11.1 mg/dL (8.5-10.1) H 04/28/19 17:33 Magnesium 1.6 mg/dL (1.7-2.9) L 04/28/19 17:33 Total Bilirubin 0.40 mg/dL (0.2-1.0) 04/28/19 17:33 AST 16 Units/L (15-37) 04/28/19 17:33 ALT 12 Units/L (12-78) 04/28/19 17:33 Alkaline Phosphatase 74 Units/L (46-116) 04/28/19 17:33 Creatine Kinase 51 Units/L (26-192) 04/29/19 01:10 CK-MB (CK-2) < 1.0 ng/mL (0-4.0) 04/29/19 01:10 CK/CKMB % Calc 2.0 % (<4) 04/29/19 01:10 Troponin I 0.09 ng/mL (0-1.5) 04/29/19 01:10 Total Protein 6.1 g/dL (6.4-8.2) L 04/28/19 17:33 Albumin 2.0 g/dL (3.4-5.0) L 04/28/19 17:33 Globulin 4.1 g/dL (2.5-4.5) 04/28/19 17:33 Albumin/Globulin Ratio 0.5 Ratio (1.1-2.1) L 04/28/19 17:33 Specimen Type Catherized urine 04/28/19 18:02 Urine Color Yellow (YELLOW) 04/28/19 18:02 Urine Appearance Cloudy (CLEAR) 04/28/19 18:02 Urine pH 6.0 (5.0 - 8.0) 04/28/19 18:02 Ur Specific Bim 1.015 (1.000-1.030) 04/28/19 18:02 Urine Protein 4+ (NEGATIVE) 04/28/19 18:02 Urine Glucose (UA) 3+ (NEGATIVE) 04/28/19 18:02 Urine Ketones 2+ (NEGATIVE) 04/28/19 18:02 Urine Occult Blood 2+ (NEGATIVE) 04/28/19 18:02 Urine Nitrite Negative (NEGATIVE) 04/28/19 18:02 Urine Bilirubin Negative (NEGATIVE) 04/28/19 18:02 Urine Urobilinogen Normal (NORMAL) 04/28/19 18:02 Ur Leukocyte Esterase 1+ (NEGATIVE) 04/28/19 18:02 Urine RBC 3-5 /HPF (NONE SEEN) 04/28/19 18:02 Urine WBC 30-50 /HPF (NONE SEEN) 04/28/19 18:02 Ur Squamous Epith Cells Rare /HPF (NEGATIVE) 04/28/19 18:02 Urine Bacteria 4+ /HPF (NEGATIVE) 04/28/19 18:02 Ur Culture Indicated? Yes/culture set up 04/28/19 18:02 Other Results Comments: CT Brain: There is no acute ntracranial hemorrhage, mass or mass effect. No extra-axial fluid collection or abnormal area of hypoattenuation to suggest acute infarction is identified. Global cerebral atrophy with ex vacuo ventricular and sulcal enlargement noted. Periventricular white matter changes of microangiopathy are noted. Review of bone windows shows no osseous lesion. Paranasal sinuses and mastoid air cells are clear. XRAY XRAY Interpreted by: Radiologist Opioid Opioid Risk Tool Total: 0 Total Score Risk Category: Low Risk Copyright: Walter MARTINEZ predicting aberrant behaviors Diagnosis Discharge Problem: Arthralgia of hip, right, Acute hypokalemia Instructions Forms: Excuse From Work ADDITIONAL NOTES Additional Notes Additional Notes: Admitted to ICU
[2019-04-28] MEDS ORDERED: NS 1000 ML 1,000 ML ONE (17:00)
[2019-04-28] MEDS ORDERED: NORMODYNE INJ 100 MG VIAL ONE ×3 (17:11→20:58)
[2019-04-28] MEDS ORDERED: NORMODYNE INJ 100 MG VIAL IVP ONE (17:14)
--- NOTE | 2019-04-28 17:16 | CT ---
CT head without contrast Indication: Altered mental status. Aphasia and left upper extremity weakness. Possible stroke. Comparison: 02/14/2019. Technique: Axial images from the skull base to the vertex without contrast. Coronal and sagittal reformats provided. Findings: There is no acute intracranial hemorrhage, mass or mass effect. No extra-axial fluid collection or abnormal area of hypoattenuation to suggest acute infarction is identified. Global cerebral atrophy with ex vacuo ventricular and sulcal enlargement noted. Periventricular white matter changes of microangiopathy are noted. Review of bone windows shows no osseous lesion. Paranasal sinuses and mastoid air cells are clear Impression: 1. No acute intracranial hemorrhage 2. Atrophy and microangiopathy. 3. If there is high clinical suspicion for an acute infarction, and it would make a clinical difference to diagnose an acute stroke now, MR is most sensitive and specific absent contraindication. Reported By:
[2019-04-28] MEDS ORDERED: NS 250 ML IV 250 ML ONE ×2 (17:24→20:58)
[2019-04-28 17:42] LABS: BASOPHILS # (AUTO) 0.1 X10^3/uL (0.0-0.1); BASOPHILS % (AUTO) 0.5 % (0.2-1.0); HEMATOCRIT 36.5 % (36.0-47.0); HEMOGLOBIN 12.6 g/dL (12.0-16.0); LYMPHOCYTES % (AUTO) 8.7 % (21.0-51.0); MEAN CORPUSCULAR HEMOGLOBIN 30.9 pg (27.0-34.0); MEAN CORPUSCULAR HGB CONC 34.6 g/dL (33.0-35.0); MEAN CORPUSCULAR VOLUME 89.3 fL (80.0-100.0); MEAN PLATELET VOLUME 7.5 fL (7.4-11.0); MONOCYTES # (AUTO) 0.4 x10^3/uL (0.3-0.8); NEUTROPHILS # (AUTO) 10.1 x10^3/uL (2.2-4.8); NEUTROPHILS % (AUTO) 87.8 % (42.0-75.0); PLATELET COUNT 357 X10^3/uL (150.0-450.0); RED BLOOD COUNT 4.08 X10^6/uL (3.5-5.4); RED CELL DISTRIBUTION WIDTH 14.6 % (11.6-16.5); WHITE BLOOD COUNT 11.5 X10^3/uL (3.6-10.0)
[2019-04-28] MEDS: NORMODYNE INJ 100 MG VIAL 250 MG in NS 250 ML IV 200 ML IV PRN ×3 (17:47→21:16)
[2019-04-28] MEDS ORDERED: NS 1000 ML 1,000 ML IV SCH (18:00)
[2019-04-28 18:08] LABS: BILIRUBIN,URINE NEGATIVE (NEGATIVE); BLOOD/HEMOGLOBIN,URINE 2+ (NEGATIVE); GLUCOSE, URINE 3+ (NEGATIVE); KETONES,URINE 2+ (NEGATIVE); LEUKOCYTE ESTERASE ,URINE 1+ (NEGATIVE); NITRITES,URINE NEGATIVE (NEGATIVE); PROTEIN,URINE 4+ (NEGATIVE); UROBILINOGEN,URINE NORMAL (NORMAL)
[2019-04-28 18:13] LABS: CALCIUM 9.5 mg/dL (8.5-10.1); CARBON DIOXIDE 22.5 mmol/L (21-32); CKMB % 3.1 % (<4); COR CA(FOR HYPOALB) 11.1 mg/dL (8.5-10.1); CREATINE KINASE MB 1.6 ng/mL (0-4.0); CREATININE 1.81 mg/dL (0.55-1.02); TOTAL PROTEIN 6.1 g/dL (6.4-8.2); TROPONIN I 0.04 ng/mL (0-1.5)
[2019-04-28 18:28] LABS: APPEARANCE,URINE CLOUDY (CLEAR); BACTERIA,URINE 4+ /HPF (NEGATIVE); COLOR,URINE YELLOW (YELLOW); SQUAMOUS EPITHELIAL CELL,UR RARE /HPF (NEGATIVE)
[2019-04-28] MEDS ORDERED: DEXTROSE ONE (20:00)
[2019-04-28] MEDS ORDERED: LEVAQUIN PREMIX IV 750 MG 750 MG/150 ML BAG IV SCH (20:00)
[2019-04-28] MEDS ORDERED: LIDOCAINE ONE (20:00)
[2019-04-28] MEDS ORDERED: LIDOCAINE IV PRN (20:13)
[2019-04-28] MEDS ORDERED: DEXTROSE IV PRN (20:13)
[2019-04-28] MEDS: DEXTROSE IV SCH (20:36)
[2019-04-28] MEDS: [UNRECOGNIZED DRUG - OTHER] IV SCH (20:36)
[2019-04-28] MEDS: POTASSIUM CHLORIDE IV SCH (20:36)
[2019-04-28] MEDS ORDERED: D5 IV SCH ×2 (21:00)
[2019-04-28] MEDS ORDERED: POTASSIUM CHLORIDE IV SCH ×2 (21:00)
[2019-04-28] MEDS ORDERED: 1/2 NS IV SCH ×2 (21:00)
[2019-04-28] MEDS ORDERED: MAGNESIUM SULFATE 1 GRAM/100 mL PREMIX 2 G/200 ML BAG IV ONE (22:18)
[2019-04-28] MEDS: MAGNESIUM SULFATE 1 GRAM/100 mL PREMIX 1 GM/100 ML BAG IV PRN ×2 (22:25→23:45)
[2019-04-29 01:44] LABS: CREATINE KINASE 51 Units/L (26-192); CREATINE KINASE MB < 1.0 ng/mL (0-4.0); TROPONIN I 0.09 ng/mL (0-1.5)
[2019-04-29] MEDS: NORMODYNE INJ 100 MG VIAL 250 MG in NS 250 ML IV 200 ML IV PRN ×2 (02:50→08:32)
[2019-04-29 06:13] LABS: BASOPHILS % (AUTO) 0.2 % (0.2-1.0); HEMOGLOBIN 10.2 g/dL (12.0-16.0); LYMPHOCYTES # (AUTO) 1.1 X10^3/uL (1.3-2.9); LYMPHOCYTES % (AUTO) 14.6 % (21.0-51.0); MEAN CORPUSCULAR HEMOGLOBIN 31.7 pg (27.0-34.0); MEAN CORPUSCULAR HGB CONC 35.2 g/dL (33.0-35.0); MEAN CORPUSCULAR VOLUME 90.2 fL (80.0-100.0); MEAN PLATELET VOLUME 8.5 fL (7.4-11.0); MONOCYTES # (AUTO) 0.9 x10^3/uL (0.3-0.8); MONOCYTES % (AUTO) 11.8 % (0.0-13.0); NEUTROPHILS # (AUTO) 5.6 x10^3/uL (2.2-4.8); NEUTROPHILS % (AUTO) 73.4 % (42.0-75.0); PLATELET COUNT 298 X10^3/uL (150.0-450.0); RED BLOOD COUNT 3.22 X10^6/uL (3.5-5.4); RED CELL DISTRIBUTION WIDTH 14.9 % (11.6-16.5); WHITE BLOOD COUNT 7.6 X10^3/uL (3.6-10.0)
[2019-04-29 06:24] LABS: ALBUMIN 1.5 g/dL (3.4-5.0); CALCIUM 8.9 mg/dL (8.5-10.1); CARBON DIOXIDE 19.4 mmol/L (21-32); COR CA(FOR HYPOALB) 10.9 mg/dL (8.5-10.1); CREATININE 2.12 mg/dL (0.55-1.02); MAGNESIUM 2.4 mg/dL (1.7-2.9)
[2019-04-29 07:16] LABS: CKMB % 1.3 % (<4); CREATINE KINASE 78 Units/L (26-192); CREATINE KINASE MB < 1.0 ng/mL (0-4.0); TROPONIN I 0.09 ng/mL (0-1.5)
[2019-04-29] MEDS ORDERED: PHARMACY CONSULT - DOSE _____ XX SCH (09:00)
[2019-04-29] MEDS: [UNRECOGNIZED DRUG - OTHER] IV SCH (10:34)
[2019-04-29] MEDS: POTASSIUM CHLORIDE IV SCH (10:34)
[2019-04-29] MEDS: DEXTROSE IV SCH (10:34)
[2019-04-29] MEDS: HumuLIN R SUBCUT PRN (13:11)
[2019-04-29 14:48] VITALS: BMI 19.1
--- NOTE | 2019-04-29 15:22 | DR.H&P ---
H&P - History & Physical for Day of: H&P Date: 04/28/19 - Chief Complaint Chief Complaint: LETHARGIC, DROWSY - History of Present Illness History of Present Illness: IS A 83 YEAR OLD PATIENT OF OURS WHO PRESENTED TO THE ER VIA EMS. FAMILY REPORTED THAT PATIENT HAD BEEN LETHARGIC AND DROWSY SINCE YESTERDAY. ON ARRIVAL TO THE ER, PATIENT NOTED TO BE ASPHASIC, BUT MOANS TO PAIN. ON ARRIVAL TO THE ER, VITALS WERE 99.2-103-18-96%-211/93. LABS WERE OBTAINED. ABNORMAL LAB VALUES INCLUDE THE FOLLOWING: WBC 11.5, POTASSIUM 2.9, CREATININE 1.81, GLUCOSE 254, MAGNESIUM 1.6, TOTAL PROTEIN 6.1, ALBUMIN 2.0. CARDIAC ENZYMES WITHIN NORMAL LIMITS. A URINALYSIS WAS OBTAINED AND REVEALED: WBC 30-50, RBC 3-5, LEUKOCYTES 1+, BACTERIA 4+. AN EKG WAS OBTAINED AND REVEALED: SINUS TACHYCARDIA WITH HR 100, MULTIPLE PVCs. A BRAIN CT WAS OBTAINED AND REVEALED: No acute intracranial hemorrhage. Atrophy and microangiopathy. If there is high clinical suspicion for an acute infarction, and it would make a clinical difference to diagnose an acute stroke now, MR is most sensitive and specific absent contraindication. SHE WAS STARTED ON D51/2 NS WITH 20KCL AT 80ML/HR, A LIDOCAINE DRIP, AND STARTED ON A LABETALOL DRIP. SHE WAS ALSO GIVEN LEVAQUIN 750MG IV X 1 DOSE. SHE WAS ADMITTED FOR FURTHER EVALUATION AND TREATMENT OF AMS, URINARY TRACT INFECTION, HYPERTENSIVE URGENCY, HYPERGLYCEMIA, AND HYPOKALEMIA. WE PLAN TO OBTAIN A BRAIN MRI IN THE MORNING. OTHERWISE, WE WILL FOLLOW UP WITH AM LABS AND CONTINUE TO MONITOR. - Past Medical History Past Medical History: Coronary Artery Disease, Hypertension, Diabetes, Renal Disease, Kidney Stones - Past Surgical History Surgical History: Cholecystectomy, Hysterectomy - Family History Family Medical History: Cancer - Social History Does patient currently use any type of tobacco product: No Have you used tobacco products in the last 12 months: No Type of Tobacco Use: None Does any household member use tobacco: No Alcohol Use: None Drug Use: None - Medications Home Medications: codeine Allergy (Verified 03/20/19 11:20) meperidine [From Demerol] Allergy (Verified 03/20/19 11:20) CONTINUE taking the following medications tiotropium bromide [Spiriva with HandiHaler] 1 cap INHALATION QDAY 04/29/19 [History] - Review of Systems Constitutional: See HPI, Weakness Eyes: No Symptoms Reported ENT: No Symptoms Reported Respiratory: Shortness of Breath Cardiovascular: No Symptoms Reported Gastrointestinal: No Symptoms Reported Genitourinary: No Symptoms Reported Musculoskeletal: No Symptoms Reported Skin: No Symptoms Reported Neurological: Weakness, Confusion - Physical Exam Vital Signs: Temperature 98.9 F Pulse Rate [Right Radial] 84 Pulse Rate [Apical] 70 Pulse Rate 63 Respiratory Rate 44 Blood Pressure [Left Arm] 180/86 Blood Pressure [Right Arm] 171/70 Blood Pressure 133/64 O2 Sat by Pulse Oximetry 100 Oriented: Not Oriented, Unable to test Eyes: Normal Ear: Normal Nose: Normal Throat: Normal Respiratory: Diminished Throughout Cardiovascular: Tachycardia. negative: S3, S4, Murmur : Normal Auscultation: Bowel Sounds: Normal Palpation: Normal Tenderness: Normal Skin: Decreased Turgur Musculoskeletal: Normal Psychiatric: Other (LETHARGIC ) Mood Description: Flat Affect: Flat Speech Pattern: Aphasic - Assessment/Plan (1) Hypertensive urgency Status: Acute Plan: LABETALOL DRIP, CONTINUE TO MONITOR (2) Urinary tract infection Qualifiers: Urinary tract infection type: acute cystitis Hematuria presence: without hematuria Qualified Code(s): N30.00 - Acute cystitis without hematuria Status: Acute Plan: IV LEVAQUIN, IV FLUIDS, CONTINUE TO MONITOR (3) Hyperglycemia Status: Acute (4) Hypokalemia Status: Acute Plan: IV FLUIDS WITH KCL, CONTINUE TO MONITOR (5) Altered mental status Qualifiers: Altered mental status type: transient alteration of awareness Qualified Code(s): R40.4 - Transient alteration of awareness Status: Acute - Allergies Allergies/Adverse Reactions: Allergies Allergy/AdvReac Type Severity Reaction Status Date / Time codeine Allergy Verified 03/20/19 11:20 meperidine [From Demerol] Allergy Verified 03/20/19 11:20
--- NOTE | 2019-04-29 17:02 | MRI ---
MRI BRAIN WITHOUT CONTRAST CLINICAL HISTORY: 83-year-old female with lethargy and weakness. COMPARISON: CT head 04/28/2019, MR brain 12/03/2018. TECHNIQUE: Multiplanar, multisequence MR images of the brain were obtained without contrast. FINDINGS: Small confluent foci of cortically based diffusion restriction within the left parietal and occipital lobes with associated signal loss on ADC and T2 FLAIR hyperintense signal abnormality. No evidence of hemorrhagic transformation. There is no evidence of diffusion restriction. The craniocervical junction is normal. Pituitary and optic nerve complex are normal. Small confluent and multifocal punctate T2 FLAIR signal hyperintensities are present within the subcortical, juxtacortical, periventricular and supraventricular white matter and right cerebellar hemisphere that are nonspecific in appearance but most likely to represent microvascular white matter ischemic changes. Normal signal characteristics and morphology are demonstrated within the corpus callosum, deep combs nuclei and brainstem. The major vascular flow voids, to include the dural venous sinuses, are intact. No abnormal susceptibility on gradient imaging. Age advanced cortical volume loss is present, with commensurate sulcal and ventricular prominence. The basilar cisterns are normal. Bilateral aphakia. The orbits and globes are otherwise within normal limits. Arrested pneumatization frontal sinuses with trace mucosal thickening throughout the ethmoid labyrinth. Remaining paranasal sinuses are clear. Trace scattered fluid throughout the mastoid air cells with tympanic cavities clear. IMPRESSION: 1. Small confluent foci of acute ischemic insult within the cortex of the left parietal and occipital lobes as described above, without hemorrhagic transformation. Consider carotid Doppler and cardiac echo as these are likely embolic in nature. 2. Moderate, chronic microvascular white matter ischemic disease with associated volume loss. 3. Nonspecific mucosal thickening paranasal sinuses and fluid in the mastoid air cells, correlate clinically. Reported By:
[2019-04-29] MEDS: NS + KCL 20 MEQ/L 1,000 ML IV SCH (17:14)
[2019-04-29] MEDS: SNACK - Diabetic Appropriate PO SCH (20:00)
[2019-04-30] MEDS: NS + KCL 20 MEQ/L 1,000 ML IV SCH ×4 (04:00→19:04)
[2019-04-30 05:42] LABS: BASOPHILS % (AUTO) 0.2 % (0.2-1.0); EOSINOPHILS % (AUTO) 0.4 % (0.9-2.9); HEMATOCRIT 26.8 % (36.0-47.0); HEMOGLOBIN 9.5 g/dL (12.0-16.0); LYMPHOCYTES # (AUTO) 1.9 X10^3/uL (1.3-2.9); LYMPHOCYTES % (AUTO) 24.1 % (21.0-51.0); MEAN CORPUSCULAR HEMOGLOBIN 31.8 pg (27.0-34.0); MEAN CORPUSCULAR HGB CONC 35.3 g/dL (33.0-35.0); MEAN CORPUSCULAR VOLUME 90.3 fL (80.0-100.0); MEAN PLATELET VOLUME 8.1 fL (7.4-11.0); MONOCYTES # (AUTO) 0.7 x10^3/uL (0.3-0.8); MONOCYTES % (AUTO) 9.2 % (0.0-13.0); NEUTROPHILS # (AUTO) 5.1 x10^3/uL (2.2-4.8); NEUTROPHILS % (AUTO) 66.1 % (42.0-75.0); PLATELET COUNT 245 X10^3/uL (150.0-450.0); RED BLOOD COUNT 2.97 X10^6/uL (3.5-5.4); WHITE BLOOD COUNT 7.7 X10^3/uL (3.6-10.0)
[2019-04-30 05:55] LABS: ALBUMIN 1.4 g/dL (3.4-5.0); CALCIUM 8.4 mg/dL (8.5-10.1); CARBON DIOXIDE 18.6 mmol/L (21-32); CHOL/HDL RATIO 7.1 (0.0-5.0); COR CA(FOR HYPOALB) 10.5 mg/dL (8.5-10.1); CREATININE 1.84 mg/dL (0.55-1.02); TOTAL PROTEIN 4.8 g/dL (6.4-8.2)
[2019-04-30] MEDS ORDERED: BENTYL CAP 10 MG PO PRN (08:05)
[2019-04-30] MEDS ORDERED: ULTRAM PO PRN (08:05)
[2019-04-30] MEDS ORDERED: VITAMIN D (1.25MG) PO SCH (08:15)
[2019-04-30] MEDS ORDERED: RIVAROXABAN 2.5 MG PO SCH (09:00)
[2019-04-30] MEDS ORDERED: CATAPRES-TTS-3 TD SCH (09:00)
[2019-04-30] MEDS: FOLIC ACID TAB 1 MG PO SCH (09:34)
[2019-04-30] MEDS: COREG TAB 6.25 MG PO SCH ×2 (09:34→21:22)
[2019-04-30] MEDS: ELAVIL PO SCH (09:34)
[2019-04-30] MEDS: NexIUM PO SCH ×2 (09:34→21:22)
[2019-04-30] MEDS: DUONEB 0.5 MG/3 MG NEB SCH ×4 (11:20→20:05)
[2019-04-30] MEDS: HumuLIN R SUBCUT PRN ×2 (11:46→21:22)
[2019-04-30] MEDS: NORVASC TAB 5 MG PO SCH (11:49)
[2019-04-30] MEDS: ROCEPHIN VIAL 1 GRAM IVP SCH (11:49)
[2019-04-30] MEDS: ECOTRIN TAB 325 MG PO SCH (11:49)
[2019-04-30] MEDS ORDERED: NORVASC TAB 5 MG PO ONE (14:46)
--- NOTE | 2019-04-30 15:07 | VAS ---
HISTORY: Stroke seen on comparison MRI brain. Study: Carotid ultrasound. Comparison: MRI brain dated April 29, 2019. Technique: Multiple combs scale and color flow Doppler images of the right and left carotid arterial system were obtained. The vertebral arterial system was evaluated as well. Findings: Normal color flow Doppler is seen throughout the right and left carotid arterial system. Maximum internal carotid artery velocity of 112 centimeters/second on the right and maximum internal carotid artery velocity on the left of 132 centimeters/second. Right ICA/CCA ratio of 1.69 and left ICA/CCA ratio 1.83. [id number] calcific plaque at the bilateral carotid bulbs. No hemodynamically significant stenosis is seen based on velocity criteria. The right and left vertebral arteries demonstrate antegrade flow. IMPRESSION: 1. Less than 50% stenosis of the right internal carotid artery. 2. Approximately 50-69% stenosis of the left internal carotid artery. Reported By:
[2019-04-30] MEDS: SNACK - Diabetic Appropriate PO SCH (20:35)
[2019-04-30] MEDS ORDERED: LEVAQUIN PREMIX IV 500 MG 500 MG/100 ML BAG IV SCH (21:00)
[2019-04-30] MEDS: LIPITOR TAB 40 MG PO SCH (21:22)
[2019-04-30] MEDS: COZAAR PO SCH (21:22)
[2019-05-01 05:38] LABS: BASOPHILS % (AUTO) 0.6 % (0.2-1.0); EOSINOPHILS # (AUTO) 0.1 x10^3/uL (0.0-0.2); EOSINOPHILS % (AUTO) 1.7 % (0.9-2.9); HEMATOCRIT 29.3 % (36.0-47.0); LYMPHOCYTES # (AUTO) 1.6 X10^3/uL (1.3-2.9); LYMPHOCYTES % (AUTO) 22.7 % (21.0-51.0); MEAN CORPUSCULAR HEMOGLOBIN 31.6 pg (27.0-34.0); MEAN PLATELET VOLUME 9.7 fL (7.4-11.0); MONOCYTES # (AUTO) 0.6 x10^3/uL (0.3-0.8); NEUTROPHILS # (AUTO) 4.5 x10^3/uL (2.2-4.8); PLATELET COUNT 252 X10^3/uL (150.0-450.0); RED BLOOD COUNT 3.15 X10^6/uL (3.5-5.4); RED CELL DISTRIBUTION WIDTH 14.9 % (11.6-16.5); WHITE BLOOD COUNT 6.8 X10^3/uL (3.6-10.0)
[2019-05-01 05:59] LABS: ALBUMIN 1.5 g/dL (3.4-5.0); CALCIUM 7.9 mg/dL (8.5-10.1); CARBON DIOXIDE 20.6 mmol/L (21-32); COR CA(FOR HYPOALB) 9.9 mg/dL (8.5-10.1); CREATININE 1.47 mg/dL (0.55-1.02); TOTAL PROTEIN 5.2 g/dL (6.4-8.2)
[2019-05-01] MEDS: HumuLIN R SUBCUT PRN ×4 (06:00→20:40)
[2019-05-01] MEDS: DUONEB 0.5 MG/3 MG NEB SCH ×4 (08:23→21:01)
[2019-05-01] MEDS: ROCEPHIN VIAL 1 GRAM IVP SCH (09:03)
[2019-05-01] MEDS: FOLIC ACID TAB 1 MG PO SCH (09:03)
[2019-05-01] MEDS: NexIUM PO SCH ×2 (09:04→20:46)
[2019-05-01] MEDS: ECOTRIN TAB 325 MG PO SCH (09:04)
[2019-05-01] MEDS: NORVASC TAB 5 MG PO SCH ×2 (09:04→11:15)
[2019-05-01] MEDS: ELAVIL PO SCH (09:04)
[2019-05-01] MEDS: COREG TAB 6.25 MG PO SCH ×2 (09:04→20:46)
[2019-05-01] MEDS: NS + KCL 20 MEQ/L 1,000 ML IV SCH ×2 (09:05→20:46)
[2019-05-01] MEDS: SNACK - Diabetic Appropriate PO SCH (20:21)
[2019-05-01] MEDS: LIPITOR TAB 40 MG PO SCH (20:46)
[2019-05-01] MEDS: COZAAR PO SCH (20:46)
[2019-05-01] MEDS ORDERED: COLACE CAP 100 MG PO ONE (20:48)
[2019-05-01] MEDS: COLACE CAP 100 MG PO PRN (20:51)
--- NOTE | 2019-05-01 21:39 | PCM.PROG ---
Progress Note - Progress Note for Day of Date of Exam: 04/29/19 - Subjective Subjective: WAS ADMITTED FOR ALTERED MENTAL STATUS, HYPERTENSIVE URGENCY, URINARY TRACT INFECTION, AND HYPERGLYCEMIA. SHE WAS ADMITTED TO THE INTENSIVE CARE UNIT ON A LABETALOL DRIP WELL A LIDOCAINE DRIP. TODAY, SHE IS LYING IN BED WITH EYES CLOSED. SHE DOES NOT RESPOND TO VERBAL STIMULI. SHE DOES MOAN TO PAINFUL STIMULI. BREATHING APPEARS TO BE LABORED THIS MORNING. ON EXAMINATION, HEART IS REGULAR IN RATE AND RHYTHM. GEROPSYCHOLOGIST REVEALS OCCATIONAL PVCs. BILATERAL LUNGS ARE NOTED WITH DIMINISHED LUNG SOUNDS THROUGHOUT. ABDOMEN IS FLAT, SOFT, AND NON-TENDER. NORMAL BOWEL SOUNDS NOTED IN ALL QUADRNATS. HER VITALS THIS MORNING ARE: 98.9-60-20-100%-124/57. LABS WERE OBTAINED. ABNORMAL LAB VALUES INCLUDE THE FOLLOWING: RBC 3.22, HGB 10.2, HCT 29.0, POTASSIUM 3.2, CARBON DIOXIDE 19.4, BUN 22, CREATININE 2.12, GLUCOSE 231, AST 14, ALT 11, TOTAL PROTEIN 5.0, ALBUMIN 1.5. CARDIAC ENZYMES ARE WITHIN NORMAL LIMITS. NO CHANGES NOTED TO EKGS. TODAY, WE WILL DISCONTINUE THE DRIPS AND MONITOR BLOOD PRESSURE. WE WILL OBTAIN AN ABG AND A BRAIN MRI WITHOUT CONTRAST. OTHERWISE, WE PLAN TO FOLLOW UP WITH AM LABS AND CONTINUE TO MONITOR. - Past Medical Family Social History Past Med/Fam/Surg Hx: No changes since H&P Allergies: Allergies codeine Allergy (Verified 03/20/19 11:20) meperidine [From Demerol] Allergy (Verified 03/20/19 11:20) - Review of Systems ROS: No change since H&P - Vital Signs and I&O's Vital Signs: Temperature 98.9 F Pulse Rate [Right Radial] 84 Pulse Rate [Apical] 70 Pulse Rate 69 Respiratory Rate 27 Blood Pressure [Left Arm] 180/86 Blood Pressure [Right Arm] 171/70 Blood Pressure 193/83 O2 Sat by Pulse Oximetry 100 Intake and Output: Intake & Output 04/29/19 04/30/19 05/01/19 05/02/19 11:59 11:59 11:59 11:59 Intake Total 2564.5 / 2564.5 1983 / 1983 2624 / 2624 403 / 403 Output Total 400 / 400 500 / 500 2650 / 2650 450 / 450 Balance 2164.5 / 2164.5 1484 / 1484 -26 / -26 -47 / -47 - Physical Exam Oriented: Not Oriented, Unable to test Eyes: Normal Ear: Normal Nose: Normal Throat: Normal Respiratory: Generalized, Diminished Cardiovascular: Normal. negative: S3, S4, Murmur : Normal Auscultation: Bowel Sounds: Normal Palpation: Normal Tenderness: Normal Skin: Decreased Turgur Musculoskeletal: Normal Psychiatric: Other (LETHARGIC ) Mood Description: Calm Affect: Flat Speech Pattern: Aphasic - Laboratory and Diagnostics Result Diagrams: 05/01/19 04:00 05/01/19 04:00 Labs: 04/28/19 18:02 Urine,Catheterized Urine Culture - Final Escherichia Coli Laboratory WBC 6.8 X10^3/uL (3.6-10.0) 05/01/19 04:00 RBC 3.15 X10^6/uL (3.5-5.4) L 05/01/19 04:00 Hgb 10.0 g/dL (12.0-16.0) L 05/01/19 04:00 Hct 29.3 % (36.0-47.0) L 05/01/19 04:00 MCV 93.0 fL (80.0-100.0) 05/01/19 04:00 MCH 31.6 pg (27.0-34.0) 05/01/19 04:00 MCHC 34.0 g/dL (33.0-35.0) 05/01/19 04:00 RDW 14.9 % (11.6-16.5) 05/01/19 04:00 Plt Count 252 X10^3/uL (150.0-450.0) 05/01/19 04:00 MPV 9.7 fL (7.4-11.0) 05/01/19 04:00 Neut % (Auto) 66.0 % (42.0-75.0) 05/01/19 04:00 Lymph % (Auto) 22.7 % (21.0-51.0) 05/01/19 04:00 [place] % (Auto) 9.0 % (0.0-13.0) 05/01/19 04:00 Eos % (Auto) 1.7 % (0.9-2.9) 05/01/19 04:00 Baso % (Auto) 0.6 % (0.2-1.0) 05/01/19 04:00 Neut # (Auto) 4.5 x10^3/uL (2.2-4.8) 05/01/19 04:00 Lymph # (Auto) 1.6 X10^3/uL (1.3-2.9) 05/01/19 04:00 [place] # (Auto) 0.6 x10^3/uL (0.3-0.8) 05/01/19 04:00 Eos # (Auto) 0.1 x10^3/uL (0.0-0.2) 05/01/19 04:00 Baso # (Auto) 0.0 X10^3/uL (0.0-0.1) 05/01/19 04:00 Absolute Nucleated RBC 0.0 /100WBC 05/01/19 04:00 INR Target Range - 04/28/19 17:33 INR 1.03 (0.8-1.3) 04/28/19 17:33 APTT 21.3 SECONDS (22.9-36.5) L 04/28/19 17:33 PTT Comment - 04/28/19 17:33 Sample Site Right brachial 04/29/19 09:56 ABG pH 7.550 (7.35-7.45) H 04/29/19 09:56 ABG pCO2 24.0 mmHg (35.0-45.0) L 04/29/19 09:56 ABG pO2 159.0 mmHg (80.0-100.0) H 04/29/19 09:56 ABG HCO3 21.0 mmol/L (22-26) L 04/29/19 09:56 ABG O2 Saturation 100.0 % (90-100) 04/29/19 09:56 ABG Base Excess 0.0 mmol/L (-2.0-2.0) 04/29/19 09:56 Ignacio Test Na 04/29/19 09:56 A-a Gradient 11.0 mmHg 04/29/19 09:56 FiO2 28.0 04/29/19 09:56 Blood Gas Comments José Luis well aw 04/29/19 09:56 Sodium 138 mmol/L (136-145) 05/01/19 04:00 Corrected Sodium 141 mmol/L (136-145) 05/01/19 04:00 Potassium 3.8 mmol/L (3.5-5.1) 05/01/19 04:00 Chloride 108 mmol/L (98-107) H 05/01/19 04:00 Carbon Dioxide 20.6 mmol/L (21-32) L 05/01/19 04:00 BUN 17 mg/dL (7-18) 05/01/19 04:00 Creatinine 1.47 mg/dL (0.55-1.02) H 05/01/19 04:00 Est GFR (MDRD) Af Amer 43 (>60) L 05/01/19 04:00 Est GFR (MDRD) Non-Af 36 (>60) L 05/01/19 04:00 Glucose 217 mg/dL (65-99) H 05/01/19 04:00 POC Glucose (mg/dL) 171 mg/dL (65-99) H 05/01/19 20:15 Calcium 7.9 mg/dL (8.5-10.1) L 05/01/19 04:00 Corrected Calcium 9.9 mg/dL (8.5-10.1) 05/01/19 04:00 Magnesium 2.0 mg/dL (1.7-2.9) 04/30/19 05:20 Total Bilirubin 0.10 mg/dL (0.2-1.0) L 05/01/19 04:00 AST 29 Units/L (15-37) 05/01/19 04:00 ALT 19 Units/L (12-78) 05/01/19 04:00 Alkaline Phosphatase 71 Units/L (46-116) 05/01/19 04:00 Creatine Kinase 78 Units/L (26-192) 04/29/19 05:11 CK-MB (CK-2) < 1.0 ng/mL (0-4.0) 04/29/19 05:11 CK/CKMB % Calc 1.3 % (<4) 04/29/19 05:11 Troponin I 0.09 ng/mL (0-1.5) 04/29/19 05:11 Total Protein 5.2 g/dL (6.4-8.2) L 05/01/19 04:00 Albumin 1.5 g/dL (3.4-5.0) L 05/01/19 04:00 Globulin 3.7 g/dL (2.5-4.5) 05/01/19 04:00 Albumin/Globulin Ratio 0.4 Ratio (1.1-2.1) L 05/01/19 04:00 Triglycerides 288 mg/dL (0-150) H 04/30/19 05:20 Cholesterol 214 mg/dL (0-200) H 04/30/19 05:20 LDL Cholesterol, Calc 126 mg/dL (0-100) H 04/30/19 05:20 HDL Cholesterol 30 mg/dL (40-60) L 04/30/19 05:20 Cholesterol/HDL Ratio 7.1 (0.0-5.0) H 04/30/19 05:20 Specimen Type Catherized urine 04/28/19 18:02 Urine Color Yellow (YELLOW) 04/28/19 18:02 Urine Appearance Cloudy (CLEAR) 04/28/19 18:02 Urine pH 6.0 (5.0 - 8.0) 04/28/19 18:02 Ur Specific [place] 1.015 (1.000-1.030) 04/28/19 18:02 Urine Protein 4+ (NEGATIVE) 04/28/19 18:02 Urine Glucose (UA) 3+ (NEGATIVE) 04/28/19 18:02 Urine Ketones 2+ (NEGATIVE) 04/28/19 18:02 Urine Occult Blood 2+ (NEGATIVE) 04/28/19 18:02 Urine Nitrite Negative (NEGATIVE) 04/28/19 18:02 Urine Bilirubin Negative (NEGATIVE) 04/28/19 18:02 Urine Urobilinogen Normal (NORMAL) 04/28/19 18:02 Ur Leukocyte Esterase 1+ (NEGATIVE) 04/28/19 18:02 Urine RBC 3-5 /HPF (NONE SEEN) 04/28/19 18:02 Urine WBC 30-50 /HPF (NONE SEEN) 04/28/19 18:02 Ur Squamous Epith Cells Rare /HPF (NEGATIVE) 04/28/19 18:02 Urine Bacteria 4+ /HPF (NEGATIVE) 04/28/19 18:02 Ur Culture Indicated? Yes/culture set up 04/28/19 18:02 - Plan (1) Hypertensive urgency Status: Acute Plan: CONTINUE TO MONITOR (2) Urinary tract infection Status: Acute Qualifiers: Urinary tract infection type: acute cystitis Hematuria presence: without hematuria Qualified Code(s): N30.00 - Acute cystitis without hematuria Plan: IV LEVAQUIN, IV FLUIDS, CONTINUE TO MONITOR (3) Hyperglycemia Status: Acute (4) Hypokalemia Status: Acute Plan: IV FLUIDS WITH KCL, CONTINUE TO MONITOR (5) Altered mental status Status: Acute Qualifiers: Altered mental status type: transient alteration of awareness Qualified Code(s): R40.4 - Transient alteration of awareness Plan: OBTAIN BRAIN MRI, CONTINUE TO MONITOR
--- NOTE | 2019-05-01 21:59 | PCM.PROG ---
Progress Note - Progress Note for Day of Date of Exam: 04/30/19 - Subjective Subjective: WAS ADMITTED FOR ALTERED MENTAL STATUS, HYPERTENSIVE URGENCY, URINARY TRACT INFECTION, AND HYPERGLYCEMIA. TODAY, SHE IS ALERT, LYING IN BED ON MORNING ROUNDS. SPEECH IS SLUGGISH AND SHE IS DISORIENTED . ON EXAMINATION, HEART IS REGULAR IN RATE AND RHYTHM. WOOD CARVING MACHINE OPERATOR REVEALS OCC ATIONAL PVCs. BILATERAL LUNGS ARE NOTED WITH DIMINISHED LUNG SOUNDS THROUGHOUT. ABDOMEN IS FLAT, SOFT, AND NON-TENDER. NORMAL BOWEL SOUNDS NOTED IN ALL QUADRNATS. HER VITALS THIS MORNING ARE: 98.9-68-39-100%-188/80. LABS WERE OBTAINED. ABNORMAL LAB VALUES INCLUDE THE FOLLOWING: RBC 2.79, HGB 9.5, HCT 26.8, CHLORIDE 110, CARBON DIOXIDE 18.6, BUN 21, CREATININE 1.84, GLUCOSE 133, CALCIUM 8.4, TOTAL BILI 0.10, TOTAL PROTEIN 4.8, ALBUMIN 1.4, TRIGLYCERIDES 288, CHOLESTEROL 214, LDL 126, HDL 30. URINE CULTURE REPORTS GROWTH OF E.COLI. A BRAIN MRI WAS OBTAINED TODAY AND REVEALED: Small confluent foci of acute ischemic insult within the cortex of the left parietal and occipital lobes as described above, without hemorrhagic transformation. Consider carotid Doppler and cardiac echo as these are likely embolic in nature. Moderate, chronic microvascular white matter ischemic disease with associated volume loss. Nonspecific mucosal thickening paranasal sinuses and fluid in the mastoid aircells, correlate clinically. TODAY, WE WILL RESUME HER XARELTO AND LIPITOR. WE WILL START ASPIRIN 325MG PO DAILY AND AMLODPINE 5MG PO DAILY AND CHANGE HER IV ANTIBIOTICS TO ROCEPHIN 1G IV DAILY. OTHERWISE, WE PLAN TO FOLLOW UP WITH AM LABS AND CONTINUE TO MONITOR. - Past Medical Family Social History Past Med/Fam/Surg Hx: No changes since H&P Allergies: Allergies codeine Allergy (Verified 03/20/19 11:20) meperidine [From Demerol] Allergy (Verified 03/20/19 11:20) - Review of Systems ROS: No change since H&P - Vital Signs and I&O's Vital Signs: Temperature 98.9 F Pulse Rate [Right Radial] 84 Pulse Rate [Apical] 70 Pulse Rate 69 Respiratory Rate 27 Blood Pressure [Left Arm] 180/86 Blood Pressure [Right Arm] 171/70 Blood Pressure 193/83 O2 Sat by Pulse Oximetry 100 Intake and Output: Intake & Output 04/29/19 04/30/19 05/01/19 05/02/19 11:59 11:59 11:59 11:59 Intake Total 2564.5 / 2564.5 1983 2624 / 2624 403 / 403 Output Total 400 / 400 500 / 500 2650 / 2650 450 / 450 Balance 2164.5 / 2164.5 1484 / 1484 -26 / -26 -47 / -47 - Physical Exam Oriented: Person Eyes: Normal Ear: Normal Nose: Normal Throat: Normal Respiratory: Generalized, Diminished Cardiovascular: Normal. negative: S3, S4, Murmur : Normal Auscultation: Bowel Sounds: Normal Palpation: Normal Tenderness: Normal Skin: Decreased Turgur Musculoskeletal: Normal Psychiatric: Normal Mood Description: Calm Affect: Flat, Normal Speech Pattern: Inappropriate, Slurred - Laboratory and Diagnostics Result Diagrams: 05/02/19 03:59 05/02/19 03:59 Labs: 04/28/19 18:02 Urine,Catheterized Urine Culture - Final Escherichia Coli Laboratory WBC 6.8 X10^3/uL (3.6-10.0) 05/01/19 04:00 RBC 3.15 X10^6/uL (3.5-5.4) L 05/01/19 04:00 Hgb 10.0 g/dL (12.0-16.0) L 05/01/19 04:00 Hct 29.3 % (36.0-47.0) L 05/01/19 04:00 MCV 93.0 fL (80.0-100.0) 05/01/19 04:00 MCH 31.6 pg (27.0-34.0) 05/01/19 04:00 MCHC 34.0 g/dL (33.0-35.0) 05/01/19 04:00 RDW 14.9 % (11.6-16.5) 05/01/19 04:00 Plt Count 252 X10^3/uL (150.0-450.0) 05/01/19 04:00 MPV 9.7 fL (7.4-11.0) 05/01/19 04:00 Neut % (Auto) 66.0 % (42.0-75.0) 05/01/19 04:00 Lymph % (Auto) 22.7 % (21.0-51.0) 05/01/19 04:00 [place] % (Auto) 9.0 % (0.0-13.0) 05/01/19 04:00 Eos % (Auto) 1.7 % (0.9-2.9) 05/01/19 04:00 Baso % (Auto) 0.6 % (0.2-1.0) 05/01/19 04:00 Neut # (Auto) 4.5 x10^3/uL (2.2-4.8) 05/01/19 04:00 Lymph # (Auto) 1.6 X10^3/uL (1.3-2.9) 05/01/19 04:00 [place] # (Auto) 0.6 x10^3/uL (0.3-0.8) 05/01/19 04:00 Eos # (Auto) 0.1 x10^3/uL (0.0-0.2) 05/01/19 04:00 Baso # (Auto) 0.0 X10^3/uL (0.0-0.1) 05/01/19 04:00 Absolute Nucleated RBC 0.0 /100WBC 05/01/19 04:00 INR Target Range - 04/28/19 17:33 INR 1.03 (0.8-1.3) 04/28/19 17:33 APTT 21.3 SECONDS (22.9-36.5) L 04/28/19 17:33 PTT Comment - 04/28/19 17:33 Sample Site Right brachial 04/29/19 09:56 ABG pH 7.550 (7.35-7.45) H 04/29/19 09:56 ABG pCO2 24.0 mmHg (35.0-45.0) L 04/29/19 09:56 ABG pO2 159.0 mmHg (80.0-100.0) H 04/29/19 09:56 ABG HCO3 21.0 mmol/L (22-26) L 04/29/19 09:56 ABG O2 Saturation 100.0 % (90-100) 04/29/19 09:56 ABG Base Excess 0.0 mmol/L (-2.0-2.0) 04/29/19 09:56 Ignacio Test Na 04/29/19 09:56 A-a Gradient 11.0 mmHg 04/29/19 09:56 FiO2 28.0 04/29/19 09:56 Blood Gas Comments José Luis well aw 04/29/19 09:56 Sodium 138 mmol/L (136-145) 05/01/19 04:00 Corrected Sodium 141 mmol/L (136-145) 05/01/19 04:00 Potassium 3.8 mmol/L (3.5-5.1) 05/01/19 04:00 Chloride 108 mmol/L (98-107) H 05/01/19 04:00 Carbon Dioxide 20.6 mmol/L (21-32) L 05/01/19 04:00 BUN 17 mg/dL (7-18) 05/01/19 04:00 Creatinine 1.47 mg/dL (0.55-1.02) H 05/01/19 04:00 Est GFR (MDRD) Af Amer 43 (>60) L 05/01/19 04:00 Est GFR (MDRD) Non-Af 36 (>60) L 05/01/19 04:00 Glucose 217 mg/dL (65-99) H 05/01/19 04:00 POC Glucose (mg/dL) 171 mg/dL (65-99) H 05/01/19 20:15 Calcium 7.9 mg/dL (8.5-10.1) L 05/01/19 04:00 Corrected Calcium 9.9 mg/dL (8.5-10.1) 05/01/19 04:00 Magnesium 2.0 mg/dL (1.7-2.9) 04/30/19 05:20 Total Bilirubin 0.10 mg/dL (0.2-1.0) L 05/01/19 04:00 AST 29 Units/L (15-37) 05/01/19 04:00 ALT 19 Units/L (12-78) 05/01/19 04:00 Alkaline Phosphatase 71 Units/L (46-116) 05/01/19 04:00 Creatine Kinase 78 Units/L (26-192) 04/29/19 05:11 CK-MB (CK-2) < 1.0 ng/mL (0-4.0) 04/29/19 05:11 CK/CKMB % Calc 1.3 % (<4) 04/29/19 05:11 Troponin I 0.09 ng/mL (0-1.5) 04/29/19 05:11 Total Protein 5.2 g/dL (6.4-8.2) L 05/01/19 04:00 Albumin 1.5 g/dL (3.4-5.0) L 05/01/19 04:00 Globulin 3.7 g/dL (2.5-4.5) 05/01/19 04:00 Albumin/Globulin Ratio 0.4 Ratio (1.1-2.1) L 05/01/19 04:00 Triglycerides 288 mg/dL (0-150) H 04/30/19 05:20 Cholesterol 214 mg/dL (0-200) H 04/30/19 05:20 LDL Cholesterol, Calc 126 mg/dL (0-100) H 04/30/19 05:20 HDL Cholesterol 30 mg/dL (40-60) L 04/30/19 05:20 Cholesterol/HDL Ratio 7.1 (0.0-5.0) H 04/30/19 05:20 Specimen Type Catherized urine 04/28/19 18:02 Urine Color Yellow (YELLOW) 04/28/19 18:02 Urine Appearance Cloudy (CLEAR) 04/28/19 18:02 Urine pH 6.0 (5.0 - 8.0) 04/28/19 18:02 Ur Specific [place] 1.015 (1.000-1.030) 04/28/19 18:02 Urine Protein 4+ (NEGATIVE) 04/28/19 18:02 Urine Glucose (UA) 3+ (NEGATIVE) 04/28/19 18:02 Urine Ketones 2+ (NEGATIVE) 04/28/19 18:02 Urine Occult Blood 2+ (NEGATIVE) 04/28/19 18:02 Urine Nitrite Negative (NEGATIVE) 04/28/19 18: Urine Bilirubin Negative (NEGATIVE) 04/28/19 18:02 Urine Urobilinogen Normal (NORMAL) 04/28/19 18:02 Ur Leukocyte Esterase 1+ (NEGATIVE) 04/28/19 18:02 Urine RBC 3-5 /HPF (NONE SEEN) 04/28/19 18:02 Urine WBC 30-50 /HPF (NONE SEEN) 04/28/19 18:02 Ur Squamous Epith Cells Rare /HPF (NEGATIVE) 04/28/19 18:02 Urine Bacteria 4+ /HPF (NEGATIVE) 04/28/19 18:02 Ur Culture Indicated? Yes/culture set up 04/28/19 18:02 - Plan (1) Acute CVA (cerebrovascular accident) Status: Acute Plan: XARELTO 2.5 PO BID, ASA 325MG PO DAILY, LIPITOR 40MG PO HS, CONTINUE TO MONITOR (2) Hypertensive urgency Status: Acute Plan: CONTINUE LOSARTAN, CONTINUE COREG, START AMLODPINE, CONTINUE TO MONITOR (3) Urinary tract infection Status: Acute Qualifiers: Urinary tract infection type: acute cystitis Hematuria presence: without hematuria Qualified Code(s): N30.00 - Acute cystitis without hematuria Plan: IV ROCEPHIN, IV FLUIDS, CONTINUE TO MONITOR (4) Hyperglycemia Status: Acute (5) Hypokalemia Status: Acute Plan: IV FLUIDS WITH KCL, CONTINUE TO MONITOR (6) Altered mental status Status: Acute Qualifiers: Altered mental status type: transient alteration of awareness Qualified Code(s): R40.4 - Transient alteration of awareness Plan: CONTINUE TO MONITOR
[2019-05-02 05:09] LABS: BASOPHILS % (AUTO) 0.7 % (0.2-1.0); EOSINOPHILS # (AUTO) 0.2 x10^3/uL (0.0-0.2); HEMATOCRIT 27.4 % (36.0-47.0); HEMOGLOBIN 9.5 g/dL (12.0-16.0); LYMPHOCYTES # (AUTO) 1.5 X10^3/uL (1.3-2.9); LYMPHOCYTES % (AUTO) 24.5 % (21.0-51.0); MEAN CORPUSCULAR HEMOGLOBIN 31.8 pg (27.0-34.0); MEAN CORPUSCULAR HGB CONC 34.6 g/dL (33.0-35.0); MEAN CORPUSCULAR VOLUME 91.7 fL (80.0-100.0); MEAN PLATELET VOLUME 9.4 fL (7.4-11.0); MONOCYTES # (AUTO) 0.5 x10^3/uL (0.3-0.8); NEUTROPHILS # (AUTO) 3.7 x10^3/uL (2.2-4.8); NEUTROPHILS % (AUTO) 62.8 % (42.0-75.0); PLATELET COUNT 255 X10^3/uL (150.0-450.0); RED BLOOD COUNT 2.98 X10^6/uL (3.5-5.4); RED CELL DISTRIBUTION WIDTH 14.8 % (11.6-16.5)
[2019-05-02 05:17] LABS: ALBUMIN 1.4 g/dL (3.4-5.0); CALCIUM 8.2 mg/dL (8.5-10.1); CARBON DIOXIDE 20.1 mmol/L (21-32); COR CA(FOR HYPOALB) 10.3 mg/dL (8.5-10.1); CREATININE 1.3 mg/dL (0.55-1.02); TOTAL PROTEIN 4.8 g/dL (6.4-8.2)
[2019-05-02] MEDS: HumuLIN R SUBCUT PRN ×2 (05:35→21:34)
[2019-05-02] MEDS: NexIUM PO SCH ×2 (08:29→21:33)
[2019-05-02] MEDS: ELAVIL PO SCH (08:29)
[2019-05-02] MEDS: ECOTRIN TAB 325 MG PO SCH (08:29)
[2019-05-02] MEDS: NORVASC TAB 5 MG PO SCH (08:29)
[2019-05-02] MEDS: FOLIC ACID TAB 1 MG PO SCH (08:30)
[2019-05-02] MEDS: ROCEPHIN VIAL 1 GRAM IVP SCH (08:30)
[2019-05-02] MEDS: COREG TAB 6.25 MG PO SCH ×2 (08:30→21:33)
[2019-05-02] MEDS: DUONEB 0.5 MG/3 MG NEB SCH ×4 (09:41→20:01)
[2019-05-02] MEDS: NS + KCL 20 MEQ/L 1,000 ML IV SCH ×2 (10:29→21:33)
--- NOTE | 2019-05-02 21:10 | PCM.PROG ---
Progress Note - Progress Note for Day of Date of Exam: 05/01/19 - Subjective Subjective: WAS ADMITTED FOR ALTERED MENTAL STATUS, HYPERTENSIVE URGENCY, URINARY TRACT INFECTION, AND HYPERGLYCEMIA. BRAIN MRI REVEALED AN ACUTE CVA. TODAY, SHE IS ALERT, LYING IN BED ON MORNING ROUNDS. HER SPEECH DOES NOT APPEAR TO BE SLURRED TODAY. SHE IS ORIENTED TO PERSON AND PLACE TODAY. ON EXAMINATION, HEART IS REGULAR IN RATE AND RHYTHM. SASH STICKER REVEALS OCCATIONAL PVCs. BILATERAL LUNGS ARE NOTED WITH DIMINISHED LUNG SOUNDS THROUGHOUT. ABDOMEN IS FLAT, SOFT, AND NON-TENDER. NORMAL BOWEL SOUNDS NOTED IN ALL QUADRNATS. HER VITALS THIS MORNING ARE: 98.1-69-16-98%-203/84. LABS WERE OBTAINED. ABNORMAL LAB VALUES INCLUDE THE FOLLOWING: RBC 3.15, HGB 10.0, HCT 29.3, CHLORIDE 108, CARBON DIOXIDE 20.6, CREATININE 1.47, GLUCOSE 217, CALCIUM 7.9, TOTAL BILI 0.10, TOTAL PROTEIN 5.2, ALBUMIN 1.5. URINE CULTURE REPORTS GROWTH OF E.COLI. ECHO OBTAINED IN JANUARY REVEALED AN EJECTION FRACTION OF 59%, OTHERWISE NORMAL. A CAROTID DOPPLER WAS OBTAINED AND REVEALED: Less than 50% stenosis of the right internal carotid artery. Approximately 50-69% stenosis of the left internal carotid artery. ASPIRIN 325MG PO DAILY, LIPITOR 40MG PO HS, AND HER BLOOD PRESSURE MEDICATIONS WERE RESUMED. SHE IS ALSO RECEIVING ROCEPHIN 1G IV DAILY FOR HER UTI. TODAY, WE WILL INCREASE HER NORVASC TO 10MG PO DAILY. OTHERWISE, WE PLAN TO FOLLOW UP WITH AM LABS AND CONTINUE TO MONITOR. - Past Medical Family Social History Past Med/Fam/Surg Hx: No changes since H&P Allergies: Allergies codeine Allergy (Verified 03/20/19 11:20) meperidine [From Demerol] Allergy (Verified 03/20/19 11:20) - Review of Systems ROS: No change since H&P - Vital Signs and I&O's Vital Signs: Temperature 98.8 F Pulse Rate [Right Radial] 84 Pulse Rate [Apical] 70 Pulse Rate 66 Respiratory Rate 30 Blood Pressure [Left Arm] 180/86 Blood Pressure [Right Arm] 171/70 Blood Pressure 167/72 O2 Sat by Pulse Oximetry 100 Intake and Output: Intake & Output 04/30/19 05/01/19 05/02/19 05/03/19 11:59 11:59 11:59 11:59 Intake Total 1983 2624 / 2624 2144 / 2144 1314 / 1314 Output Total 500 / 500 2650 / 2650 2250 / 2250 Balance 1484 / 1484 -26 / -26 -106 / -106 1314 / 1314 - Physical Exam Oriented: Person Eyes: Normal Ear: Normal Nose: Normal Throat: Normal Respiratory: Generalized, Diminished Cardiovascular: Normal. negative: S3, S4, Murmur : Normal Auscultation: Bowel Sounds: Normal Palpation: Normal Tenderness: Normal Skin: Decreased Turgur Musculoskeletal: Normal Psychiatric: Normal Mood Description: Calm Affect: Flat, Normal Speech Pattern: Clear - Laboratory and Diagnostics Result Diagrams: 05/02/19 03:59 05/02/19 03:59 Labs: 04/28/19 18:02 Urine,Catheterized Urine Culture - Final Escherichia Coli Laboratory WBC 6.0 X10^3/uL (3.6-10.0) 05/02/19 03:59 RBC 2.98 X10^6/uL (3.5-5.4) L 05/02/19 03:59 Hgb 9.5 g/dL (12.0-16.0) L 05/02/19 03:59 Hct 27.4 % (36.0-47.0) L 05/02/19 03:59 MCV 91.7 fL (80.0-100.0) 05/02/19 03:59 MCH 31.8 pg (27.0-34.0) 05/02/19 03:59 MCHC 34.6 g/dL (33.0-35.0) 05/02/19 03:59 RDW 14.8 % (11.6-16.5) 05/02/19 03:59 Plt Count 255 X10^3/uL (150.0-450.0) 05/02/19 03:59 MPV 9.4 fL (7.4-11.0) 05/02/19 03:59 Neut % (Auto) 62.8 % (42.0-75.0) 05/02/19 03:59 Lymph % (Auto) 24.5 % (21.0-51.0) 05/02/19 03:59 [place] % (Auto) 9.0 % (0.0-13.0) 05/02/19 03:59 Eos % (Auto) 3.0 % (0.9-2.9) H 05/02/19 03:59 Baso % (Auto) 0.7 % (0.2-1.0) 05/02/19 03:59 Neut # (Auto) 3.7 x10^3/uL (2.2-4.8) 05/02/19 03:59 Lymph # (Auto) 1.5 X10^3/uL (1.3-2.9) 05/02/19 03:59 [place] # (Auto) 0.5 x10^3/uL (0.3-0.8) 05/02/19 03:59 Eos # (Auto) 0.2 x10^3/uL (0.0-0.2) 05/02/19 03:59 Baso # (Auto) 0.0 X10^3/uL (0.0-0.1) 05/02/19 03:59 Absolute Nucleated RBC 0.1 /100WBC 05/02/19 03:59 INR Target Range - 04/28/19 17:33 INR 1.03 (0.8-1.3) 04/28/19 17:33 APTT 21.3 SECONDS (22.9-36.5) L 04/28/19 17:33 PTT Comment - 04/28/19 17:33 Sample Site Right brachial 04/29/19 09:56 ABG pH 7.550 (7.35-7.45) H 04/29/19 09:56 ABG pCO2 24.0 mmHg (35.0-45.0) L 04/29/19 09:56 ABG pO2 159.0 mmHg (80.0-100.0) H 04/29/19 09:56 ABG HCO3 21.0 mmol/L (22-26) L 04/29/19 09:56 ABG O2 Saturation 100.0 % (90-100) 04/29/19 09:56 ABG Base Excess 0.0 mmol/L (-2.0-2.0) 04/29/19 09:56 Ignacio Test Na 04/29/19 09:56 A-a Gradient 11.0 mmHg 04/29/19 09:56 FiO2 28.0 07/10/19 09:56 Blood Gas Comments José Luis well aw 04/29/19 09:56 Sodium 138 mmol/L (136-145) 05/02/19 03:59 Corrected Sodium 140 mmol/L (136-145) 05/02/19 03:59 Potassium 4.0 mmol/L (3.5-5.1) 05/02/19 03:59 Chloride 108 mmol/L (98-107) H 05/02/19 03:59 Carbon Dioxide 20.1 mmol/L (21-32) L 05/02/19 03:59 BUN 16 mg/dL (7-18) 05/02/19 03:59 Creatinine 1.30 mg/dL (0.55-1.02) H 05/02/19 03:59 Est GFR (MDRD) Af Amer 50 (>60) L 05/02/19 03:59 Est GFR (MDRD) Non-Af 41 (>60) L 05/02/19 03:59 Glucose 175 mg/dL (65-99) H 05/02/19 03:59 POC Glucose (mg/dL) 238 mg/dL (65-99) H 05/02/19 20:42 Calcium 8.2 mg/dL (8.5-10.1) L 05/02/19 03:59 Corrected Calcium 10.3 mg/dL (8.5-10.1) H 05/02/19 03:59 Magnesium 2.0 mg/dL (1.7-2.9) 04/30/19 05:20 Total Bilirubin 0.10 mg/dL (0.2-1.0) L 05/02/19 03:59 AST 15 Units/L (15-37) 05/02/19 03:59 ALT 15 Units/L (12-78) 05/02/19 03:59 Alkaline Phosphatase 68 Units/L (46-116) 05/02/19 03:59 Creatine Kinase 78 Units/L (26-192) 04/29/19 05:11 CK-MB (CK-2) < 1.0 ng/mL (0-4.0) 04/29/19 05:11 CK/CKMB % Calc 1.3 % (<4) 04/29/19 05:11 Troponin I 0.09 ng/mL (0-1.5) 04/29/19 05:11 Total Protein 4.8 g/dL (6.4-8.2) L 05/02/19 03:59 Albumin 1.4 g/dL (3.4-5.0) L 05/02/19 03:59 Globulin 3.4 g/dL (2.5-4.5) 05/02/19 03:59 Albumin/Globulin Ratio 0.4 Ratio (1.1-2.1) L 05/02/19 03:59 Triglycerides 288 mg/dL (0-150) H 04/30/19 05:20 Cholesterol 214 mg/dL (0-200) H 04/30/19 05:20 LDL Cholesterol, Calc 126 mg/dL (0-100) H 04/30/19 05:20 HDL Cholesterol 30 mg/dL (40-60) L 04/30/19 05:20 Cholesterol/HDL Ratio 7.1 (0.0-5.0) H 04/30/19 05:20 Specimen Type Catherized urine 04/28/19 18:02 Urine Color Yellow (YELLOW) 04/28/19 18:02 Urine Appearance Cloudy (CLEAR) 04/28/19 18:02 Urine pH 6.0 (5.0 - 8.0) 04/28/19 18:02 Ur Specific [place] 1.015 (1.000-1.030) 04/28/19 18:02 Urine Protein 4+ (NEGATIVE) 04/28/19 18:02 Urine Glucose (UA) 3+ (NEGATIVE) 04/28/19 18:02 Urine Ketones 2+ (NEGATIVE) 04/28/19 18:02 Urine Occult Blood 2+ (NEGATIVE) 04/28/19 18:02 Urine Nitrite Negative (NEGATIVE) 04/28/19 18:02 Urine Bilirubin Negative (NEGATIVE) 04/28/19 18:02 Urine Urobilinogen Normal (NORMAL) 04/28/19 18:02 Ur Leukocyte Esterase 1+ (NEGATIVE) 04/28/19 18:02 Urine RBC 3-5 /HPF (NONE SEEN) 04/28/19 18:02 Urine WBC 30-50 /HPF (NONE SEEN) 04/28/19 18:02 Ur Squamous Epith Cells Rare /HPF (NEGATIVE) 04/28/19 18:02 Urine Bacteria 4+ /HPF (NEGATIVE) 04/28/19 18:02 Ur Culture Indicated? Yes/culture set up 04/28/19 18:02 - Plan (1) Acute CVA (cerebrovascular accident) Status: Acute Plan: XARELTO 2.5 PO BID, ASA 325MG PO DAILY, LIPITOR 40MG PO HS, CONTINUE TO MONITOR (2) Hypertensive urgency Status: Acute Plan: CONTINUE LOSARTAN, CONTINUE COREG, AMLODIPINE 10MG PO DAILY, CONTINUE TO MONITOR (3) Urinary tract infection Status: Acute Qualifiers: Urinary tract infection type: acute cystitis Hematuria presence: without hematuria Qualified Code(s): N30.00 - Acute cystitis without hematuria Plan: IV ROCEPHIN, IV FLUIDS, CONTINUE TO MONITOR (4) Hyperglycemia Status: Acute (5) Hypokalemia Status: Acute Plan: IV FLUIDS WITH KCL, CONTINUE TO MONITOR (6) Altered mental status Status: Acute Qualifiers: Altered mental status type: transient alteration of awareness Qualified Code(s): R40.4 - Transient alteration of awareness Plan: CONTINUE TO MONITOR
[2019-05-02] MEDS: LIPITOR TAB 40 MG PO SCH (21:33)
[2019-05-02] MEDS: SNACK - Diabetic Appropriate PO SCH (21:33)
[2019-05-02] MEDS: COZAAR PO SCH (21:33)
[2019-05-03 05:26] LABS: BASOPHILS % (AUTO) 0.7 % (0.2-1.0); EOSINOPHILS # (AUTO) 0.2 x10^3/uL (0.0-0.2); EOSINOPHILS % (AUTO) 3.5 % (0.9-2.9); HEMATOCRIT 27.1 % (36.0-47.0); HEMOGLOBIN 9.4 g/dL (12.0-16.0); LYMPHOCYTES # (AUTO) 1.2 X10^3/uL (1.3-2.9); LYMPHOCYTES % (AUTO) 24.5 % (21.0-51.0); MEAN CORPUSCULAR HEMOGLOBIN 31.7 pg (27.0-34.0); MEAN CORPUSCULAR HGB CONC 34.8 g/dL (33.0-35.0); MEAN CORPUSCULAR VOLUME 91.1 fL (80.0-100.0); MEAN PLATELET VOLUME 8.8 fL (7.4-11.0); MONOCYTES # (AUTO) 0.4 x10^3/uL (0.3-0.8); MONOCYTES % (AUTO) 8.7 % (0.0-13.0); NEUTROPHILS # (AUTO) 3.1 x10^3/uL (2.2-4.8); NEUTROPHILS % (AUTO) 62.6 % (42.0-75.0); PLATELET COUNT 247 X10^3/uL (150.0-450.0); RED BLOOD COUNT 2.97 X10^6/uL (3.5-5.4); RED CELL DISTRIBUTION WIDTH 14.6 % (11.6-16.5); WHITE BLOOD COUNT 4.9 X10^3/uL (3.6-10.0)
[2019-05-03 05:39] LABS: ALBUMIN 1.3 g/dL (3.4-5.0); CALCIUM 8.4 mg/dL (8.5-10.1); CARBON DIOXIDE 21.5 mmol/L (21-32); COR CA(FOR HYPOALB) 10.6 mg/dL (8.5-10.1); CREATININE 1.17 mg/dL (0.55-1.02); TOTAL PROTEIN 4.9 g/dL (6.4-8.2)
[2019-05-03] MEDS: DUONEB 0.5 MG/3 MG NEB SCH ×4 (09:15→20:55)
[2019-05-03] MEDS: NORVASC TAB 5 MG PO SCH (09:52)
[2019-05-03] MEDS: FOLIC ACID TAB 1 MG PO SCH (09:52)
[2019-05-03] MEDS: ECOTRIN TAB 325 MG PO SCH (09:52)
[2019-05-03] MEDS: ROCEPHIN VIAL 1 GRAM IVP SCH (09:52)
[2019-05-03] MEDS: COREG TAB 6.25 MG PO SCH ×2 (09:53→20:20)
[2019-05-03] MEDS: COLACE CAP 100 MG PO PRN ×2 (09:56→20:21)
[2019-05-03] MEDS: NexIUM PO SCH ×2 (09:57→20:21)
[2019-05-03] MEDS: ELAVIL PO SCH (09:57)
[2019-05-03] MEDS: NS + KCL 20 MEQ/L 1,000 ML IV SCH ×2 (10:31→22:13)
[2019-05-03] MEDS: APRESOLINE TAB 25 MG PO SCH ×2 (17:48→22:13)
[2019-05-03] MEDS: HumuLIN R SUBCUT PRN (17:57)
[2019-05-03] MEDS: SNACK - Diabetic Appropriate PO SCH (20:20)
[2019-05-03] MEDS: COZAAR PO SCH (20:21)
[2019-05-03] MEDS: LIPITOR TAB 40 MG PO SCH (20:21)
[2019-05-03] MEDS: NYSTATIN SUSP PO SCH (20:24)
--- NOTE | 2019-05-03 21:45 | PCM.PROG ---
Progress Note - Progress Note for Day of Date of Exam: 05/02/19 - Subjective Subjective: IS BEING TREATED FOR ACUTE CVA, ALTERED MENTAL STATUS, HYPERTENSIVE URGENCY, URINARY TRACT INFECTION, AND HYPERGLYCEMIA. TODAY, SHE IS ALERT, LYING IN BED ON MORNING ROUNDS. SHE CONTINUES WITH DIFFUCULTY EXPRESSING THOUGHTS TODAY. SHE IS ORIENTED TO PERSON AND PLACE. ON EXAMINATION, HEART IS REGULAR IN RATE AND RHYTHM. 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 BILATERAL LUNGS ARE NOTED WITH DIMINISHED LUNG SOUNDS THROUGHOUT. ABDOMEN IS FLAT, SOFT, AND NON-TENDER. NORMAL BOWEL SOUNDS NOTED IN ALL QUADRNATS. HER VITALS THIS MORNING ARE: 98.8-75-27-99%-182/79. LABS WERE OBTAINED. ABNORMAL LAB VALUES INCLUDE THE FOLLOWING: RBC 2.98, HGB 9.5, HCT 27.4, CHLORIDE 108, CARBON DIOXIDE 20.1, CREATININE 1.30, GLUCOSE 175, CALCIUM 8.2, TOTAL BILI 0.10, TOTAL PROTEIN 4.8, ALBUMIN 1.4. URINE CULTURE REPORTS GROWTH OF E.COLI. SHE IS CURRENTLY RECEIVING ASPIRIN 325MG PO DAILY, LIPITOR 40MG PO HS, AND BLOOD PRESSURE MEDICATIONS WERE RESUMED. SHE IS ALSO RECEIVING ROCEPHIN 1G IV DAILY FOR HER UTI. SPEECHY, PHYSICAL, AND OCCUPATIONAL THERAPIES ARE WORKING WITH PATIENT. WE WILL CONTINUE WITH CURRENT PLAN OF CARE TODAY. OTHERWISE, WE PLAN TO FOLLOW UP WITH AM LABS AND CONTINUE TO MONITOR. - Past Medical Family Social History Past Med/Fam/Surg Hx: No changes since H&P Allergies: Allergies codeine Allergy (Verified 03/20/19 11:20) meperidine [From Demerol] Allergy (Verified 03/20/19 11:20) - Review of Systems ROS: No change since H&P - Vital Signs and I&O's Vital Signs: Temperature 98.9 F Pulse Rate [Right Radial] 84 Pulse Rate [Apical] 70 Pulse Rate 74 Respiratory Rate 21 Blood Pressure [Left Arm] 180/86 Blood Pressure [Right Arm] 171/70 Blood Pressure 157/70 O2 Sat by Pulse Oximetry 97 Intake and Output: Intake & Output 05/01/19 05/02/19 05/03/19 05/04/19 11:59 11:59 11:59 11:59 Intake Total 2624 / 2624 2144 / 2144 3114 / 3114 1333 / 1333 Output Total 2650 / 2650 2250 / 2250 Balance -26 / -26 -106 / -106 3114 / 3114 1333 / 1333 - Physical Exam Oriented: Person Eyes: Normal Ear: Normal Nose: Normal Throat: Normal Respiratory: Generalized, Diminished Cardiovascular: Normal. negative: S3, S4, Murmur : Normal Auscultation: Bowel Sounds: Normal Tenderness: Normal Skin: Decreased Turgur Musculoskeletal: Normal Psychiatric: Normal Mood Description: Calm Affect: Flat, Normal Speech Pattern: Clear - Laboratory and Diagnostics Result Diagrams: 05/03/19 04:14 05/03/19 04:14 Labs: 04/28/19 18:02 Urine,Catheterized Urine Culture - Final Escherichia Coli Laboratory WBC 4.9 X10^3/uL (3.6-10.0) 05/03/19 04:14 RBC 2.97 X10^6/uL (3.5-5.4) L 05/03/19 04:14 Hgb 9.4 g/dL (12.0-16.0) L 05/03/19 04:14 Hct 27.1 % (36.0-47.0) L 05/03/19 04:14 MCV 91.1 fL (80.0-100.0) 05/03/19 04:14 MCH 31.7 pg (27.0-34.0) 05/03/19 04:14 MCHC 34.8 g/dL (33.0-35.0) 05/03/19 04:14 RDW 14.6 % (11.6-16.5) 05/03/19 04:14 Plt Count 247 X10^3/uL (150.0-450.0) 05/03/19 04:14 MPV 8.8 fL (7.4-11.0) 05/03/19 04:14 Neut % (Auto) 62.6 % (42.0-75.0) 05/03/19 04:14 Lymph % (Auto) 24.5 % (21.0-51.0) 05/03/19 04:14 [place] % (Auto) 8.7 % (0.0-13.0) 05/03/19 04:14 Eos % (Auto) 3.5 % (0.9-2.9) H 05/03/19 04:14 Baso % (Auto) 0.7 % (0.2-1.0) 05/03/19 04:14 Neut # (Auto) 3.1 x10^3/uL (2.2-4.8) 05/03/19 04:14 Lymph # (Auto) 1.2 X10^3/uL (1.3-2.9) L 05/03/19 04:14 [place] # (Auto) 0.4 x10^3/uL (0.3-0.8) 05/03/19 04:14 Eos # (Auto) 0.2 x10^3/uL (0.0-0.2) 05/03/19 04:14 Baso # (Auto) 0.0 X10^3/uL (0.0-0.1) 05/03/19 04:14 Absolute Nucleated RBC 0.1 /100WBC 05/03/19 04:14 INR Target Range - 04/28/19 17:33 INR 1.03 (0.8-1.3) 04/28/19 17:33 APTT 21.3 SECONDS (22.9-36.5) L 04/28/19 17:33 PTT Comment - 04/28/19 17:33 Sample Site Right brachial 04/29/19 09:56 ABG pH 7.550 (7.35-7.45) H 04/29/19 09:56 ABG pCO2 24.0 mmHg (35.0-45.0) L 04/29/19 09:56 ABG pO2 159.0 mmHg (80.0-100.0) H 04/29/19 09:56 ABG HCO3 21.0 mmol/L (22-26) L 04/29/19 09:56 ABG O2 Saturation 100.0 % (90-100) 04/29/19 09:56 ABG Base Excess 0.0 mmol/L (-2.0-2.0) 04/29/19 09:56 Ignacio Test Na 04/29/19 09:56 A-a Gradient 11.0 mmHg 04/29/19 09:56 FiO2 28.0 04/29/19 09:56 Blood Gas Comments José Luis well aw 04/29/19 09:56 Sodium 138 mmol/L (136-145) 05/03/19 04:14 Corrected Sodium 140 mmol/L (136-145) 05/03/19 04:14 Potassium 4.2 mmol/L (3.5-5.1) 05/03/19 04:14 Chloride 109 mmol/L (98-107) H 05/03/19 04:14 Carbon Dioxide 21.5 mmol/L (21-32) 05/03/19 04:14 BUN 14 mg/dL (7-18) 05/03/19 04:14 Creatinine 1.17 mg/dL (0.55-1.02) H 05/03/19 04:14 Est GFR (MDRD) Af Amer 57 (>60) L 05/03/19 04:14 Est GFR (MDRD) Non-Af 47 (>60) L 05/03/19 04:14 Glucose 190 mg/dL (65-99) H 05/03/19 04:14 POC Glucose (mg/dL) 196 mg/dL (65-99) H 05/03/19 20:09 Calcium 8.4 mg/dL (8.5-10.1) L 05/03/19 04:14 Corrected Calcium 10.6 mg/dL (8.5-10.1) H 05/03/19 04:14 Magnesium 2.0 mg/dL (1.7-2.9) 04/30/19 05:20 Total Bilirubin 0.10 mg/dL (0.2-1.0) L 05/03/19 04:14 AST 9 Units/L (15-37) L 05/03/19 04:14 ALT 14 Units/L (12-78) 05/03/19 04:14 Alkaline Phosphatase 76 Units/L (46-116) 05/03/19 04:14 Creatine Kinase 78 Units/L (26-192) 04/29/19 05:11 CK-MB (CK-2) < 1.0 ng/mL (0-4.0) 04/29/19 05:11 CK/CKMB % Calc 1.3 % (<4) 04/29/19 05:11 Troponin I 0.09 ng/mL (0-1.5) 04/29/19 05:11 Total Protein 4.9 g/dL (6.4-8.2) L 05/03/19 04:14 Albumin 1.3 g/dL (3.4-5.0) L 05/03/19 04:14 Globulin 3.6 g/dL (2.5-4.5) 05/03/19 04:14 Albumin/Globulin Ratio 0.4 Ratio (1.1-2.1) L 05/03/19 04:14 Triglycerides 288 mg/dL (0-150) H 04/30/19 05:20 Cholesterol 214 mg/dL (0-200) H 04/30/19 05:20 LDL Cholesterol, Calc 126 mg/dL (0-100) H 04/30/19 05:20 HDL Cholesterol 30 mg/dL (40-60) L 04/30/19 05:20 Cholesterol/HDL Ratio 7.1 (0.0-5.0) H 04/30/19 05:20 Specimen Type Catherized urine 04/28/19 18:02 Urine Color Yellow (YELLOW) 04/28/19 18:02 Urine Appearance Cloudy (CLEAR) 04/28/19 18:02 Urine pH 6.0 (5.0 - 8.0) 04/28/19 18:02 Ur Specific [place] 1.015 (1.000-1.030) 04/28/19 18:02 Urine Protein 4+ (NEGATIVE) 04/28/19 18:02 Urine Glucose (UA) 3+ (NEGATIVE) 04/28/19 18:02 Urine Ketones 2+ (NEGATIVE) 04/28/19 18:02 Urine Occult Blood 2+ (NEGATIVE) 04/28/19 18:02 Urine Nitrite Negative (NEGATIVE) 04/28/19 18:02 Urine Bilirubin Negative (NEGATIVE) 04/28/19 18:02 Urine Urobilinogen Normal (NORMAL) 04/28/19 18:02 Ur Leukocyte Esterase 1+ (NEGATIVE) 04/28/19 18:02 Urine RBC 3-5 /HPF (NONE SEEN) 04/28/19 18:02 Urine WBC 30-50 /HPF (NONE SEEN) 04/28/19 18:02 Ur Squamous Epith Cells Rare /HPF (NEGATIVE) 04/28/19 18:02 Urine Bacteria 4+ /HPF (NEGATIVE) 04/28/19 18:02 Ur Culture Indicated? Yes/culture set up 04/28/19 18:02 - Plan (1) Acute CVA (cerebrovascular accident) Status: Acute Plan: XARELTO 2.5 PO BID, ASA 325MG PO DAILY, LIPITOR 40MG PO HS, CONTINUE TO MONITOR (2) Hypertensive urgency Status: Acute Plan: CONTINUE LOSARTAN, CONTINUE COREG, AMLODIPINE 10MG PO DAILY, CONTINUE TO MONITOR (3) Urinary tract infection Status: Acute Qualifiers: Urinary tract infection type: acute cystitis Hematuria presence: without hematuria Qualified Code(s): N30.00 - Acute cystitis without hematuria Plan: IV ROCEPHIN, IV FLUIDS, CONTINUE TO MONITOR (4) Hyperglycemia Status: Acute (5) Hypokalemia Status: Acute Plan: IV FLUIDS WITH KCL, CONTINUE TO MONITOR (6) Altered mental status Status: Acute Qualifiers: Altered mental status type: transient alteration of awareness Qualified Code(s): R40.4 - Transient alteration of awareness Plan: CONTINUE TO MONITOR
[2019-05-04 04:31] LABS: BASOPHILS % (AUTO) 0.4 % (0.2-1.0); EOSINOPHILS # (AUTO) 0.1 x10^3/uL (0.0-0.2); EOSINOPHILS % (AUTO) 1.5 % (0.9-2.9); HEMATOCRIT 28.6 % (36.0-47.0); HEMOGLOBIN 9.8 g/dL (12.0-16.0); LYMPHOCYTES # (AUTO) 1.1 X10^3/uL (1.3-2.9); LYMPHOCYTES % (AUTO) 13.9 % (21.0-51.0); MEAN CORPUSCULAR HEMOGLOBIN 31.4 pg (27.0-34.0); MEAN CORPUSCULAR HGB CONC 34.3 g/dL (33.0-35.0); MEAN CORPUSCULAR VOLUME 91.5 fL (80.0-100.0); MEAN PLATELET VOLUME 9.3 fL (7.4-11.0); MONOCYTES # (AUTO) 0.5 x10^3/uL (0.3-0.8); MONOCYTES % (AUTO) 6.1 % (0.0-13.0); NEUTROPHILS # (AUTO) 6.4 x10^3/uL (2.2-4.8); NEUTROPHILS % (AUTO) 78.1 % (42.0-75.0); PLATELET COUNT 258 X10^3/uL (150.0-450.0); RED BLOOD COUNT 3.13 X10^6/uL (3.5-5.4); RED CELL DISTRIBUTION WIDTH 14.4 % (11.6-16.5); WHITE BLOOD COUNT 8.2 X10^3/uL (3.6-10.0)
[2019-05-04 04:42] LABS: ALBUMIN 1.3 g/dL (3.4-5.0); CALCIUM 8.3 mg/dL (8.5-10.1); CARBON DIOXIDE 22.3 mmol/L (21-32); COR CA(FOR HYPOALB) 10.5 mg/dL (8.5-10.1); CREATININE 1.16 mg/dL (0.55-1.02); TOTAL PROTEIN 4.9 g/dL (6.4-8.2)
[2019-05-04] MEDS: APRESOLINE TAB 25 MG PO SCH ×2 (05:13→14:10)
[2019-05-04] MEDS: ROCEPHIN VIAL 1 GRAM IVP SCH (08:46)
[2019-05-04] MEDS: NexIUM PO SCH (08:47)
[2019-05-04] MEDS: ECOTRIN TAB 325 MG PO SCH (08:47)
[2019-05-04] MEDS: ELAVIL PO SCH (08:47)
[2019-05-04] MEDS: COREG TAB 6.25 MG PO SCH (08:47)
[2019-05-04] MEDS: FOLIC ACID TAB 1 MG PO SCH (08:47)
[2019-05-04] MEDS: NYSTATIN SUSP PO SCH ×3 (08:48→17:56)
[2019-05-04] MEDS: NORVASC TAB 5 MG PO SCH (08:50)
[2019-05-04] MEDS: DUONEB 0.5 MG/3 MG NEB SCH ×3 (09:06→18:16)
[2019-05-04] MEDS: NS + KCL 20 MEQ/L 1,000 ML IV SCH (14:10)
[2019-05-04 18:30] VITALS: BP 148/66
== END 2019-05-04 18:20 | disposition home health service (06) | DRG 65 ==
LOC: ER 16:39 → ICU 20:31
PROVIDERS: ADMIT Internal Medicine; ATTEND Internal Medicine
DX: I48.91 Unspecified atrial fibrillation; I16.0 Hypertensive urgency; Z66 Do not resuscitate; B96.29 Other Escherichia coli [E. coli] as the cause of diseases classified elsewhere; N30.00 Acute cystitis without hematuria; E11.65 Type 2 diabetes mellitus with hyperglycemia; I25.10 Atherosclerotic heart disease of native coronary artery without angina pectoris; R40.4 Transient alteration of awareness; E87.6 Hypokalemia; R94.31 Abnormal electrocardiogram [ECG] [EKG]; I63.89 Other cerebral infarction; R26.89 Other abnormalities of gait and mobility; M25.551 Pain in right hip
CPT/HCPCS: 36415; 36600; 51702; 70450; 70551; 80053; 80061; 81001; 82550; 82553; 82803; 83735; 84484; 85025; 85610; 85730; 87086; 87088; 87186; 92507; 92523; 92610; 93005; 93880; 94640; 96365; 96367; 96374; 96375; 97112; 97116; 97163; 97167; 97530; 97535; 99285; A4222; J0696; J1815; J1956; J2001; J3475; J3480; J3490; J7030; J7050; J7620; S5010

== ENCOUNTER 2019-06-05 11:27 | Inpatient (IN) ==
[2019-06-05] MEDS ORDERED: ZOFRAN INJ 4 MG VIAL IVP PRN (13:28)
[2019-06-05] MEDS ORDERED: NS 1000 ML 1,000 ML ONE (13:36)
[2019-06-05] MEDS ORDERED: MORPHINE SULFATE INJ 2 MG INJ ONE (13:38)
[2019-06-05 13:44] LABS: BASOPHILS # (AUTO) 0.1 X10^3/uL (0.0-0.1); BASOPHILS % (AUTO) 0.7 % (0.2-1.0); EOSINOPHILS # (AUTO) 0.3 x10^3/uL (0.0-0.2); EOSINOPHILS % (AUTO) 2.8 % (0.9-2.9); HEMATOCRIT 35.5 % (36.0-47.0); HEMOGLOBIN 12.2 g/dL (12.0-16.0); LYMPHOCYTES # (AUTO) 3.2 X10^3/uL (1.3-2.9); LYMPHOCYTES % (AUTO) 29.9 % (21.0-51.0); MEAN CORPUSCULAR HGB CONC 34.4 g/dL (33.0-35.0); MEAN CORPUSCULAR VOLUME 90.3 fL (80.0-100.0); MEAN PLATELET VOLUME 8.2 fL (7.4-11.0); NEUTROPHILS # (AUTO) 6.2 x10^3/uL (2.2-4.8); NEUTROPHILS % (AUTO) 57.6 % (42.0-75.0); PLATELET COUNT 326 X10^3/uL (150.0-450.0); RED BLOOD COUNT 3.93 X10^6/uL (3.5-5.4); RED CELL DISTRIBUTION WIDTH 14.8 % (11.6-16.5); WHITE BLOOD COUNT 10.8 X10^3/uL (3.6-10.0)
[2019-06-05 13:57] LABS: ALBUMIN 2.5 g/dL (3.4-5.0); AMYLASE 60 Units/L (25-115); CALCIUM 9.4 mg/dL (8.5-10.1); CARBON DIOXIDE 21.3 mmol/L (21-32); COR CA(FOR HYPOALB) 10.6 mg/dL (8.5-10.1); CREATININE 1.56 mg/dL (0.55-1.02); LIPASE 154 Units/L (73-393); TOTAL PROTEIN 7.1 g/dL (6.4-8.2)
[2019-06-05] MEDS ORDERED: PHARMACY CONSULT - DOSE _____ XX SCH (14:00)
[2019-06-05] MEDS: NS 1000 ML 1,000 ML IV SCH (14:10)
[2019-06-05] MEDS: MORPHINE SULFATE INJ 2 MG INJ IVP PRN (14:11)
[2019-06-05 14:48] LABS: BILIRUBIN,URINE NEGATIVE (NEGATIVE); BLOOD/HEMOGLOBIN,URINE NEGATIVE (NEGATIVE); GLUCOSE, URINE 2+ (NEGATIVE); KETONES,URINE NEGATIVE (NEGATIVE); LEUKOCYTE ESTERASE ,URINE NEGATIVE (NEGATIVE); NITRITES,URINE NEGATIVE (NEGATIVE); PROTEIN,URINE 4+ (NEGATIVE); UROBILINOGEN,URINE NORMAL (NORMAL)
[2019-06-05] MEDS ORDERED: TORADOL 30 MG VIAL IVP PRN (14:48)
[2019-06-05] MEDS ORDERED: COZAAR PO ONE (14:48)
[2019-06-05 14:58] LABS: APPEARANCE,URINE CLEAR (CLEAR); BACTERIA,URINE NEGATIVE /HPF (NEGATIVE); COLOR,URINE YELLOW (YELLOW); RBC,URINE NONE SEEN /HPF (NONE SEEN); SQUAMOUS EPITHELIAL CELL,UR RARE /HPF (NEGATIVE)
[2019-06-05] MEDS: APRESOLINE TAB 25 MG PO SCH ×2 (16:49→21:30)
[2019-06-05 17:19] VITALS: BMI 17.6
--- NOTE | 2019-06-05 18:26 | CT ---
CT abdomen and pelvis without contrast Indication: Right-sided lower abdominal pain. Comparison: 03/10/2019 Technique: Helical images through the abdomen and pelvis after oral contrast only. Coronal and sagittal reformats provided. Findings: Limited images through the lower chest shows no acute abnormality. There is cardiomegaly with coronary artery calcification. 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 The liver, spleen, adrenal glands, pancreas, stomach and small bowel show no acute abnormality. Contrast flows into the small bowel distally without obstruction. No acute colonic abnormality is seen. Dense aortic plaque is seen, particularly just below the renal arteries were significant aortic stenosis likely on axial image 32. Bilateral iliac artery stenosis suspected, probably severe on the right on axial image 51. Kidneys show no hydroureteronephrosis. There is punctate right lower pole renal stone, unchanged from the prior on axial image 42. Impression: 1. No acute abnormality to explain the patient's pain 2. Extensive aortic plaque, with multifocal stenoses. Vascular surgery follow-up recommended. 3. Nonobstructing right lower pole renal stone possible. Reported By:
[2019-06-05] MEDS ORDERED: NORMODYNE INJ 100 MG VIAL ONE (18:27)
[2019-06-05] MEDS: NORMODYNE INJ 20 MG VIAL IV PRN (18:35)
[2019-06-06] MEDS: NS 1000 ML 1,000 ML IV SCH ×2 (02:32→16:37)
[2019-06-06 05:11] LABS: BASOPHILS # (AUTO) 0.1 X10^3/uL (0.0-0.1); BASOPHILS % (AUTO) 0.9 % (0.2-1.0); EOSINOPHILS # (AUTO) 0.3 x10^3/uL (0.0-0.2); EOSINOPHILS % (AUTO) 3.6 % (0.9-2.9); HEMATOCRIT 28.2 % (36.0-47.0); LYMPHOCYTES # (AUTO) 2.2 X10^3/uL (1.3-2.9); LYMPHOCYTES % (AUTO) 30.9 % (21.0-51.0); MEAN CORPUSCULAR HEMOGLOBIN 31.4 pg (27.0-34.0); MEAN CORPUSCULAR HGB CONC 34.9 g/dL (33.0-35.0); MEAN PLATELET VOLUME 8.3 fL (7.4-11.0); MONOCYTES # (AUTO) 0.8 x10^3/uL (0.3-0.8); MONOCYTES % (AUTO) 11.5 % (0.0-13.0); NEUTROPHILS # (AUTO) 3.7 x10^3/uL (2.2-4.8); NEUTROPHILS % (AUTO) 53.1 % (42.0-75.0); PLATELET COUNT 266 X10^3/uL (150.0-450.0); RED BLOOD COUNT 3.13 X10^6/uL (3.5-5.4); RED CELL DISTRIBUTION WIDTH 14.5 % (11.6-16.5)
[2019-06-06 05:28] LABS: ALBUMIN 1.8 g/dL (3.4-5.0); CALCIUM 8.4 mg/dL (8.5-10.1); CARBON DIOXIDE 21.6 mmol/L (21-32); COR CA(FOR HYPOALB) 10.2 mg/dL (8.5-10.1); CREATININE 1.49 mg/dL (0.55-1.02); TOTAL PROTEIN 5.4 g/dL (6.4-8.2)
[2019-06-06 06:04] LABS: HEMOGLOBIN 9.8 g/dL (12.0-16.0)
[2019-06-06] MEDS: APRESOLINE TAB 25 MG PO SCH ×4 (06:06→21:11)
[2019-06-06] MEDS: MORPHINE SULFATE INJ 2 MG INJ IVP PRN (08:47)
[2019-06-06] MEDS: ALBUMIN HUMAN 25%- 100 ML 100 ML IV SCH (08:51)
[2019-06-06] MEDS ORDERED: MILK OF MAGNESIA PO SCH (12:00)
[2019-06-06] MEDS: HumuLIN R SUBCUT PRN ×2 (12:00→17:13)
[2019-06-06] MEDS ORDERED: NITRODUR PATCH 0.2 MG/HR TD SCH (15:00)
[2019-06-06] MEDS ORDERED: VITAMIN D (1.25MG) PO SCH ×2 (15:45→16:15)
[2019-06-06] MEDS ORDERED: K-DUR TAB 20 MEQ PO PRN (15:52)
[2019-06-06] MEDS ORDERED: FOLIC ACID TAB 1 MG PO SCH (16:00)
[2019-06-06] MEDS ORDERED: CATAPRES-TTS-3 TD SCH (16:00)
[2019-06-06] MEDS ORDERED: TIOTROPIUM BROMIDE MONOHYDRATE IN SCH (16:00)
[2019-06-06] MEDS ORDERED: LIPITOR TAB 40 MG PO SCH (16:00)
[2019-06-06] MEDS ORDERED: LANTUS SC SCH (16:00)
[2019-06-06] MEDS: COLACE CAP 100 MG PO SCH ×2 (16:01→21:11)
[2019-06-06] MEDS ORDERED: MILK OF MAGNESIA PO PRN (16:06)
[2019-06-06] MEDS: NexIUM PO SCH ×2 (16:31→21:11)
[2019-06-06] MEDS: K-DUR TAB 20 MEQ PO PRN (16:31)
[2019-06-06] MEDS: ECOTRIN TAB 325 MG PO SCH (16:32)
[2019-06-06] MEDS: ELAVIL PO SCH (16:32)
[2019-06-06] MEDS ORDERED: SNACK - Diabetic Appropriate PO SCH (20:00)
[2019-06-06] MEDS: LANTUS SC SCH (21:11)
[2019-06-06] MEDS: CHECK PATCH XX SCH (21:11)
[2019-06-06] MEDS: BENTYL CAP 10 MG PO SCH (21:11)
[2019-06-06] MEDS: LIPITOR TAB 40 MG PO SCH (21:11)
[2019-06-06] MEDS: XARELTO PO SCH (21:47)
[2019-06-06] MEDS: SNACK - Diabetic Appropriate PO SCH (22:18)
[2019-06-07] MEDS: NS 1000 ML 1,000 ML IV SCH ×2 (05:18→18:38)
[2019-06-07] MEDS: BENTYL CAP 10 MG PO SCH ×3 (05:18→21:01)
[2019-06-07] MEDS: APRESOLINE TAB 25 MG PO SCH ×3 (05:18→21:01)
[2019-06-07 05:29] LABS: BASOPHILS % (AUTO) 0.7 % (0.2-1.0); EOSINOPHILS # (AUTO) 0.4 x10^3/uL (0.0-0.2); EOSINOPHILS % (AUTO) 5.9 % (0.9-2.9); HEMATOCRIT 25.1 % (36.0-47.0); HEMOGLOBIN 8.6 g/dL (12.0-16.0); LYMPHOCYTES # (AUTO) 1.9 X10^3/uL (1.3-2.9); LYMPHOCYTES % (AUTO) 29.5 % (21.0-51.0); MEAN CORPUSCULAR HEMOGLOBIN 31.7 pg (27.0-34.0); MEAN CORPUSCULAR HGB CONC 34.3 g/dL (33.0-35.0); MEAN CORPUSCULAR VOLUME 92.6 fL (80.0-100.0); MEAN PLATELET VOLUME 8.7 fL (7.4-11.0); MONOCYTES # (AUTO) 0.6 x10^3/uL (0.3-0.8); MONOCYTES % (AUTO) 9.3 % (0.0-13.0); NEUTROPHILS # (AUTO) 3.5 x10^3/uL (2.2-4.8); NEUTROPHILS % (AUTO) 54.6 % (42.0-75.0); PLATELET COUNT 215 X10^3/uL (150.0-450.0); RED BLOOD COUNT 2.71 X10^6/uL (3.5-5.4); RED CELL DISTRIBUTION WIDTH 14.3 % (11.6-16.5); WHITE BLOOD COUNT 6.4 X10^3/uL (3.6-10.0)
[2019-06-07 05:49] LABS: ALBUMIN 2.1 g/dL (3.4-5.0); CALCIUM 8.1 mg/dL (8.5-10.1); CARBON DIOXIDE 18.8 mmol/L (21-32); COR CA(FOR HYPOALB) 9.6 mg/dL (8.5-10.1); CREATININE 1.51 mg/dL (0.55-1.02); TOTAL PROTEIN 5.1 g/dL (6.4-8.2)
[2019-06-07] MEDS: FOLIC ACID TAB 1 MG PO SCH (08:26)
[2019-06-07] MEDS: COLACE CAP 100 MG PO SCH ×2 (08:26→20:53)
[2019-06-07] MEDS: NexIUM PO SCH ×2 (08:26→20:51)
[2019-06-07] MEDS: ELAVIL PO SCH (08:26)
[2019-06-07] MEDS: ECOTRIN TAB 325 MG PO SCH (08:26)
[2019-06-07] MEDS: ALBUMIN HUMAN 25%- 100 ML 100 ML IV SCH (08:27)
[2019-06-07] MEDS: ULTRAM PO PRN (08:51)
[2019-06-07] MEDS ORDERED: SPIRIVA HANDIHALER (30 DOSE) IN SCH (09:00)
[2019-06-07] MEDS: NITRODUR PATCH 0.4 MG/HR TD SCH (10:32)
[2019-06-07] MEDS: CHECK PATCH XX SCH ×2 (10:32→21:00)
[2019-06-07] MEDS ORDERED: XARELTO ONE (10:48)
[2019-06-07] MEDS: XARELTO PO SCH ×2 (11:06→20:55)
[2019-06-07] MEDS ORDERED: NORMODYNE INJ 100 MG VIAL ONE (12:32)
[2019-06-07] MEDS: NORMODYNE INJ 20 MG VIAL IV PRN ×3 (12:34→15:30)
[2019-06-07] MEDS: ACTOS PO SCH (15:09)
[2019-06-07] MEDS: COZAAR PO SCH ×2 (17:19→20:54)
[2019-06-07] MEDS: HumuLIN R SUBCUT PRN (17:20)
[2019-06-07] MEDS: MORPHINE SULFATE INJ 2 MG INJ IVP PRN (19:19)
[2019-06-07] MEDS: SNACK - Diabetic Appropriate PO SCH (20:50)
[2019-06-07] MEDS: LANTUS SC SCH (20:52)
[2019-06-07] MEDS: LIPITOR TAB 40 MG PO SCH (20:52)
[2019-06-07] MEDS ORDERED: COZAAR PO SCH (21:00)
--- NOTE | 2019-06-07 21:47 | PCM.PROG ---
Progress Note - Progress Note for Day of Date of Exam: 06/06/19 - Subjective Subjective: WAS ADMITTED FOR TREATMENT OF ABDOMINAL PAIN, NAUSEA, AND VOMITING. TODAY, SHE IS ALERT AND ORIENTED, LYING IN BED ON MORNING ROUNDS. SHE CONTINUES WITH COMPLAINTS OF ABDOMINAL PAIN AND NAUSEA TODAY. SHE REPORTS OCCASIONAL DARK STOOLS. ON EXAMINATION, HEART IS REGULAR IN RATE AND RHYTHM. BILATERAL LUNGS ARE NOTED TO BE CLEAR TO AUSCULTATION. ABDOMEN IS ROUND, SOFT, AND NOTED WITH MILD, DIFFUSE TENDERNESS TO PALPATION. NORMAL BOWEL SOUNDS ARE NOTED IN ALL QUADRANTS. HER VITALS THIS MORNING ARE: 98.4-80-18-99%RA-148/77. LABS WERE OBTAINED. ABNORMAL LAB VALUES INCLUDE THE FOLLOWING: RBC 3.13, HGB 9.8, HCT 28.2, CREATININE 1.49, GLUCOSE 130, CALCIUM 8.4, TOTAL BILI 0.10, ALT 10, TOTAL PROTEIN 5.4, ALBUMIN 1.8. URINE CULTURE IS PENDING. AN ABDOMEN/PELVIS CT WITHOUT CONTRAST WAS OBTAINED YESTERDAY AND REVEALED: No acute abnormality to explain the patient's pain. Extensive aortic plaque, with multifocal stenoses. Vascular surgery follow-up recommended. Nonobstructing right lower pole renal stone possible. SHE IS CURRENTLY RECEIVING IV FLUIDS, IV MORPHINE, IV TORADOL, AND HOME MEDICATIONS WERE RESUMED. TODAY, WE WILL OBTAIN A STOOL FOR OCCULT BLOOD, DECREASE HYDRALAZINE TO 25MG PO TID, AND START A NITRO PATCH. - Past Medical Family Social History Past Med/Fam/Surg Hx: No changes since H&P Allergies: Allergies codeine Allergy (Verified 03/20/19 11:20) meperidine [From Demerol] Allergy (Verified 03/20/19 11:20) - Vital Signs and I&O's Vital Signs: Temperature 98.4 F Pulse Rate [Radial] 72 Respiratory Rate 18 Blood Pressure [Left Arm] 148/77 Blood Pressure [Right Arm] 185/76 Blood Pressure 148/66 O2 Sat by Pulse Oximetry 96 Intake and Output: Intake & Output 06/05/19 06/06/19 06/07/19 06/08/19 11:59 11:59 11:59 11:59 Intake Total 1090 / 1090 3220 / 3220 1574 / 1574 Balance 1090 / 1090 3220 / 3220 1574 / 1574 - Physical Exam Oriented: Normal Eyes: Normal Ear: Normal Nose: Normal Throat: Normal Respiratory: Normal Cardiovascular: Normal : Normal Auscultation: Bowel Sounds: Normal Palpation: Normal Tenderness: Diffuse, Mild. negative: Rebound, Guarding, Rigidity Skin: Normal Musculoskeletal: Normal Psychiatric: Normal Mood Description: Calm Affect: Normal Speech Pattern: Clear, Appropriate - Laboratory and Diagnostics Result Diagrams: 06/07/19 04:09 06/07/19 04:09 Labs: 06/05/19 14:35 Urine,Clean Catch Urine Culture - Final Laboratory WBC 6.4 X10^3/uL (3.6-10.0) 06/07/19 04:09 RBC 2.71 X10^6/uL (3.5-5.4) L 06/07/19 04:09 Hgb 8.6 g/dL (12.0-16.0) L 06/07/19 04:09 Hct 25.1 % (36.0-47.0) L 06/07/19 04:09 MCV 92.6 fL (80.0-100.0) 06/07/19 04:09 MCH 31.7 pg (27.0-34.0) 06/07/19 04:09 MCHC 34.3 g/dL (33.0-35.0) 06/07/19 04:09 RDW 14.3 % (11.6-16.5) 06/07/19 04:09 Plt Count 215 X10^3/uL (150.0-450.0) 06/07/19 04:09 MPV 8.7 fL (7.4-11.0) 06/07/19 04:09 Neut % (Auto) 54.6 % (42.0-75.0) 06/07/19 04:09 Lymph % (Auto) 29.5 % (21.0-51.0) 06/07/19 04:09 [place] % (Auto) 9.3 % (0.0-13.0) 06/07/19 04:09 Eos % (Auto) 5.9 % (0.9-2.9) H 06/07/19 04:09 Baso % (Auto) 0.7 % (0.2-1.0) 06/07/19 04:09 Neut # (Auto) 3.5 x10^3/uL (2.2-4.8) 06/07/19 04:09 Lymph # (Auto) 1.9 X10^3/uL (1.3-2.9) 06/07/19 04:09 [place] # (Auto) 0.6 x10^3/uL (0.3-0.8) 06/07/19 04:09 Eos # (Auto) 0.4 x10^3/uL (0.0-0.2) H 06/07/19 04:09 Baso # (Auto) 0.0 X10^3/uL (0.0-0.1) 06/07/19 04:09 Absolute Nucleated RBC 0.1 /100WBC 06/07/19 04:09 Sodium 141 mmol/L (136-145) 06/07/19 04:09 Corrected Sodium 142 mmol/L (136-145) 06/07/19 04:09 Potassium 4.0 mmol/L (3.5-5.1) 06/07/19 04:09 Chloride 110 mmol/L (98-107) H 06/07/19 04:09 Carbon Dioxide 18.8 mmol/L (21-32) L 06/07/19 04:09 BUN 16 mg/dL (7-18) 06/07/19 04:09 Creatinine 1.51 mg/dL (0.55-1.02) H 06/07/19 04:09 Est GFR (MDRD) Af Amer 42 (>60) L 06/07/19 04:09 Est GFR (MDRD) Non-Af 35 (>60) L 06/07/19 04:09 Glucose 128 mg/dL (65-99) H 06/07/19 04:09 Calcium 8.1 mg/dL (8.5-10.1) L 06/07/19 04:09 Corrected Calcium 9.6 mg/dL (8.5-10.1) 06/07/19 04:09 Total Bilirubin 0.20 mg/dL (0.2-1.0) 06/07/19 04:09 AST 15 Units/L (15-37) 06/07/19 04:09 ALT 11 Units/L (12-78) L 06/07/19 04:09 Alkaline Phosphatase 62 Units/L (46-116) 06/07/19 04:09 Total Protein 5.1 g/dL (6.4-8.2) L 06/07/19 04:09 Albumin 2.1 g/dL (3.4-5.0) L 06/07/19 04:09 Globulin 3.0 g/dL (2.5-4.5) 06/07/19 04:09 Albumin/Globulin Ratio 0.7 Ratio (1.1-2.1) L 06/07/19 04:09 Amylase 60 Units/L (25-115) 06/05/19 13:36 Lipase 154 Units/L (73-393) 06/05/19 13:36 Specimen Type Clean catch urine 06/05/19 14:35 Urine Color Yellow (YELLOW) 06/05/19 14:35 Urine Appearance Clear (CLEAR) 06/05/19 14:35 Urine pH 7.0 (5.0 - 8.0) 06/05/19 14:35 Ur Specific [place] 1.010 (1.000-1.030) 06/05/19 14:35 Urine Protein 4+ (NEGATIVE) 06/05/19 14:35 Urine Glucose (UA) 2+ (NEGATIVE) 06/05/19 14:35 Urine Ketones Negative (NEGATIVE) 06/05/19 14:35 Urine Occult Blood Negative (NEGATIVE) 06/05/19 14:35 Urine Nitrite Negative (NEGATIVE) 06/05/19 14:35 Urine Bilirubin Negative (NEGATIVE) 06/05/19 14:35 Urine Urobilinogen Normal (NORMAL) 06/05/19 14:35 Ur Leukocyte Esterase Negative (NEGATIVE) 06/05/19 14:35 Urine RBC None seen /HPF (NONE SEEN) 06/05/19 14:35 Urine WBC 0-2 /HPF (NONE SEEN) 06/05/19 14:35 Ur Squamous Epith Cells Rare /HPF (NEGATIVE) 06/05/19 14:35 Urine Bacteria Negative /HPF (NEGATIVE) 06/05/19 14:35 Ur Culture Indicated? No/not indicated 06/05/19 14:35 Stool Description 70g,solid,brown 06/06/19 14:52 Stl Occult Blood (IFOB) Positive (NEGATIVE) A 06/06/19 14:52 - Plan (1) Abdominal pain Status: Acute Qualifiers: Abdominal location: generalized Qualified Code(s): R10.84 - Generalized abdominal pain Plan: IV MORPHINE, IV TORADOL, IV FLUIDS, HEMOCCULT STOOLS, CONTINUE TO MONITOR (2) Nausea & vomiting Status: Acute Qualifiers: Vomiting Intractability: unspecified Plan: IV ZOFRAN, CONTINUE TO MONITOR (3) HTN (hypertension) Status: Acute Qualifiers: Hypertension type: essential hypertension Qualified Code(s): I10 - Essential (primary) hypertension Plan: CONTINUE HOME MEDS, HYDRALAZINE 25MG PO TID, NITRO PATCH, CONTINUE TO MONIOTR
--- NOTE | 2019-06-07 23:19 | PCM.PROG ---
Progress Note - Progress Note for Day of Date of Exam: 06/07/19 - Subjective Subjective: WAS ADMITTED FOR TREATMENT OF ABDOMINAL PAIN, NAUSEA, AND VOMITING. TODAY, SHE IS ALERT AND ORIENTED, LYING IN BED ON MORNING ROUNDS. SHE CONTINUES WITH COMPLAINTS OF ABDOMINAL PAIN BUT DENIES NAUSEA OR VOMITING TODAY. ON EXAMINATION, HEART IS REGULAR IN RATE AND RHYTHM. BILATERAL LUNGS ARE NOTED TO BE CLEAR TO AUSCULTATION. ABDOMEN IS ROUND, SOFT, AND NOTED WITH MILD, DIFFUSE TENDERNESS TO PALPATION. NORMAL BOWEL SOUNDS ARE NOTED IN ALL QUADRANTS. HER VITALS THIS MORNING ARE: 98.4-70-20-99%-188/77. LABS WERE OBTAINED. ABNORMAL LAB VALUES INCLUDE THE FOLLOWING: RBC 2.71, HGB 8.6, HCT 25.1, CHLORIDE 110, CARBON DIOXIDE 18.8, CREATININE 1.51, GLUCOSE 128, CALCIUM 8.1, ALT 11, TOTAL PROTEIN 5.1, ALBUMIN 2.1. URINE CULTURE IS PENDING. STOOL IS POSITIVE FOR OCCULT BLOOD. SHE IS CURRENTLY RECEIVING IV FLUIDS, IV MORPHINE, IV TORADOL, AND HOME MEDICATIONS WERE RESUMED. WE WILL INCREASE HER NITRO PATCH TO 0.4 TODAY DUE TO PERSISTENT HYPERTENSION. OTHERWISE, WE WILL FOLLOW UP WITH AM LABS AND CONTINUE TO MONITOR. - Past Medical Family Social History Past Med/Fam/Surg Hx: No changes since H&P Allergies: Allergies codeine Allergy (Verified 03/20/19 11:20) meperidine [From Demerol] Allergy (Verified 03/20/19 11:20) - Vital Signs and I&O's Vital Signs: Temperature 98.4 F Pulse Rate [Radial] 72 Respiratory Rate 18 Blood Pressure [Left Arm] 148/77 Blood Pressure [Right Arm] 185/76 Blood Pressure 148/66 O2 Sat by Pulse Oximetry 96 Intake and Output: Intake & Output 06/05/19 06/06/19 06/07/19 06/08/19 11:59 11:59 11:59 11:59 Intake Total 1090 / 1090 3220 / 3220 2073 Balance 1090 / 1090 3220 / 3220 2073 - Physical Exam Oriented: Normal Eyes: Normal Ear: Normal Nose: Normal Throat: Normal Respiratory: Normal Cardiovascular: Normal : Normal Auscultation: Bowel Sounds: Normal Tenderness: Diffuse, Mild. negative: Rebound, Guarding, Rigidity Skin: Normal Musculoskeletal: Normal Psychiatric: Normal Mood Description: Calm Affect: Normal Speech Pattern: Clear, Appropriate - Laboratory and Diagnostics Result Diagrams: 06/07/19 04:09 06/07/19 04:09 Labs: 06/05/19 14:35 Urine,Clean Catch Urine Culture - Final Laboratory WBC 6.4 X10^3/uL (3.6-10.0) 06/07/19 04:09 RBC 2.71 X10^6/uL (3.5-5.4) L 06/07/19 04:09 Hgb 8.6 g/dL (12.0-16.0) L 06/07/19 04:09 Hct 25.1 % (36.0-47.0) L 06/07/19 04:09 MCV 92.6 fL (80.0-100.0) 06/07/19 04:09 MCH 31.7 pg (27.0-34.0) 06/07/19 04:09 MCHC 34.3 g/dL (33.0-35.0) 06/07/19 04:09 RDW 14.3 % (11.6-16.5) 06/07/19 04:09 Plt Count 215 X10^3/uL (150.0-450.0) 06/07/19 04:09 MPV 8.7 fL (7.4-11.0) 06/07/19 04:09 Neut % (Auto) 54.6 % (42.0-75.0) 06/07/19 04:09 Lymph % (Auto) 29.5 % (21.0-51.0) 06/07/19 04:09 [place] % (Auto) 9.3 % (0.0-13.0) 06/07/19 04:09 Eos % (Auto) 5.9 % (0.9-2.9) H 06/07/19 04:09 Baso % (Auto) 0.7 % (0.2-1.0) 06/07/19 04:09 Neut # (Auto) 3.5 x10^3/uL (2.2-4.8) 06/07/19 04:09 Lymph # (Auto) 1.9 X10^3/uL (1.3-2.9) 06/07/19 04:09 [place] # (Auto) 0.6 x10^3/uL (0.3-0.8) 06/07/19 04:09 Eos # (Auto) 0.4 x10^3/uL (0.0-0.2) H 06/07/19 04:09 Baso # (Auto) 0.0 X10^3/uL (0.0-0.1) 06/07/19 04:09 Absolute Nucleated RBC 0.1 /100WBC 06/07/19 04:09 Sodium 141 mmol/L (136-145) 06/07/19 04:09 Corrected Sodium 142 mmol/L (136-145) 06/07/19 04:09 Potassium 4.0 mmol/L (3.5-5.1) 06/07/19 04:09 Chloride 110 mmol/L (98-107) H 06/07/19 04:09 Carbon Dioxide 18.8 mmol/L (21-32) L 06/07/19 04:09 BUN 16 mg/dL (7-18) 06/07/19 04:09 Creatinine 1.51 mg/dL (0.55-1.02) H 06/07/19 04:09 Est GFR (MDRD) Af Amer 42 (>60) L 06/07/19 04:09 Est GFR (MDRD) Non-Af 35 (>60) L 06/07/19 04:09 Glucose 128 mg/dL (65-99) H 06/07/19 04:09 Calcium 8.1 mg/dL (8.5-10.1) L 06/07/19 04:09 Corrected Calcium 9.6 mg/dL (8.5-10.1) 06/07/19 04:09 Total Bilirubin 0.20 mg/dL (0.2-1.0) 06/07/19 04:09 AST 15 Units/L (15-37) 06/07/19 04:09 ALT 11 Units/L (12-78) L 06/07/19 04:09 Alkaline Phosphatase 62 Units/L (46-116) 06/07/19 04:09 Total Protein 5.1 g/dL (6.4-8.2) L 06/07/19 04:09 Albumin 2.1 g/dL (3.4-5.0) L 06/07/19 04:09 Globulin 3.0 g/dL (2.5-4.5) 06/07/19 04:09 Albumin/Globulin Ratio 0.7 Ratio (1.1-2.1) L 06/07/19 04:09 Amylase 60 Units/L (25-115) 06/05/19 13:36 Lipase 154 Units/L (73-393) 06/05/19 13:36 Specimen Type Clean catch urine 06/05/19 14:35 Urine Color Yellow (YELLOW) 06/05/19 14:35 Urine Appearance Clear (CLEAR) 06/05/19 14:35 Urine pH 7.0 (5.0 - 8.0) 06/05/19 14:35 Ur Specific [place] 1.010 (1.000-1.030) 06/05/19 14:35 Urine Protein 4+ (NEGATIVE) 06/05/19 14:35 Urine Glucose (UA) 2+ (NEGATIVE) 06/05/19 14:35 Urine Ketones Negative (NEGATIVE) 06/05/19 14:35 Urine Occult Blood Negative (NEGATIVE) 06/05/19 14:35 Urine Nitrite Negative (NEGATIVE) 06/05/19 14:35 Urine Bilirubin Negative (NEGATIVE) 06/05/19 14:35 Urine Urobilinogen Normal (NORMAL) 06/05/19 14:35 Ur Leukocyte Esterase Negative (NEGATIVE) 06/05/19 14:35 Urine RBC None seen /HPF (NONE SEEN) 06/05/19 14:35 Urine WBC 0-2 /HPF (NONE SEEN) 06/05/19 14:35 Ur Squamous Epith Cells Rare /HPF (NEGATIVE) 06/05/19 14:35 Urine Bacteria Negative /HPF (NEGATIVE) 06/05/19 14:35 Ur Culture Indicated? No/not indicated 06/05/19 14:35 Stool Description 70g,solid,brown 06/06/19 14:52 Stl Occult Blood (IFOB) Positive (NEGATIVE) A 06/06/19 14:52 - Plan (1) Abdominal pain Status: Acute Qualifiers: Abdominal location: generalized Qualified Code(s): R10.84 - Generalized abdominal pain Plan: IV MORPHINE, IV TORADOL, IV FLUIDS, HEMOCCULT STOOLS, CONTINUE TO MONITOR (2) Nausea & vomiting Status: Acute Qualifiers: Vomiting Intractability: unspecified Plan: IV ZOFRAN, CONTINUE TO MONITOR (3) HTN (hypertension) Status: Acute Qualifiers: Hypertension type: essential hypertension Qualified Code(s): I10 - Essential (primary) hypertension Plan: CONTINUE HOME MEDS, HYDRALAZINE 25MG PO TID, NITRO PATCH, CONTINUE TO MONIOTR
[2019-06-08 05:23] LABS: BASOPHILS % (AUTO) 0.5 % (0.2-1.0); EOSINOPHILS # (AUTO) 0.4 x10^3/uL (0.0-0.2); EOSINOPHILS % (AUTO) 5.7 % (0.9-2.9); HEMATOCRIT 26.1 % (36.0-47.0); LYMPHOCYTES # (AUTO) 1.5 X10^3/uL (1.3-2.9); LYMPHOCYTES % (AUTO) 23.3 % (21.0-51.0); MEAN CORPUSCULAR HEMOGLOBIN 31.6 pg (27.0-34.0); MEAN CORPUSCULAR HGB CONC 34.3 g/dL (33.0-35.0); MEAN CORPUSCULAR VOLUME 92.2 fL (80.0-100.0); MEAN PLATELET VOLUME 8.6 fL (7.4-11.0); MONOCYTES # (AUTO) 0.7 x10^3/uL (0.3-0.8); MONOCYTES % (AUTO) 10.4 % (0.0-13.0); NEUTROPHILS # (AUTO) 3.8 x10^3/uL (2.2-4.8); NEUTROPHILS % (AUTO) 60.1 % (42.0-75.0); PLATELET COUNT 215 X10^3/uL (150.0-450.0); RED BLOOD COUNT 2.83 X10^6/uL (3.5-5.4); RED CELL DISTRIBUTION WIDTH 14.3 % (11.6-16.5); WHITE BLOOD COUNT 6.4 X10^3/uL (3.6-10.0)
[2019-06-08] MEDS: APRESOLINE TAB 25 MG PO SCH ×4 (05:23→21:37)
[2019-06-08] MEDS: BENTYL CAP 10 MG PO SCH ×4 (05:23→21:37)
[2019-06-08 05:43] LABS: ALBUMIN 2.3 g/dL (3.4-5.0); CALCIUM 8.5 mg/dL (8.5-10.1); CARBON DIOXIDE 19.1 mmol/L (21-32); COR CA(FOR HYPOALB) 9.9 mg/dL (8.5-10.1); CREATININE 1.34 mg/dL (0.55-1.02); TOTAL PROTEIN 5.4 g/dL (6.4-8.2)
[2019-06-08] MEDS: NS 1000 ML 1,000 ML IV SCH ×3 (06:24→21:44)
[2019-06-08] MEDS: ALBUMIN HUMAN 25%- 100 ML 100 ML IV SCH (09:49)
[2019-06-08] MEDS: ACTOS PO SCH (09:50)
[2019-06-08] MEDS: NITRODUR PATCH 0.4 MG/HR TD SCH (09:50)
[2019-06-08] MEDS: NexIUM PO SCH ×2 (09:51→21:37)
[2019-06-08] MEDS: ELAVIL PO SCH (09:51)
[2019-06-08] MEDS: ECOTRIN TAB 325 MG PO SCH (09:51)
[2019-06-08] MEDS: FOLIC ACID TAB 1 MG PO SCH (09:51)
[2019-06-08] MEDS: TORADOL 15 MG VIAL IVP PRN (09:52)
[2019-06-08] MEDS: CHECK PATCH XX SCH ×2 (09:52→21:53)
[2019-06-08] MEDS: COLACE CAP 100 MG PO SCH ×2 (09:52→21:39)
[2019-06-08] MEDS: XARELTO PO SCH ×2 (09:59→21:44)
[2019-06-08] MEDS: NORMODYNE INJ 20 MG VIAL IV PRN (16:30)
[2019-06-08] MEDS: MORPHINE SULFATE INJ 2 MG INJ IVP PRN (16:48)
--- NOTE | 2019-06-08 21:29 | PCM.PROG ---
Progress Note - Progress Note for Day of Date of Exam: 06/08/19 - Subjective Subjective: WAS ADMITTED FOR TREATMENT OF ABDOMINAL PAIN, NAUSEA, AND VOMITING. TODAY, SHE IS ALERT AND ORIENTED, LYING IN BED ON MORNING ROUNDS. SHE CONTINUES WITH COMPLAINTS OF ABDOMINAL PAIN AND ALSO REPORTS RIGHT FLANK PAIN. SHE REPORTS GENERALIZED WEAKNESS. ON EXAMINATION, HEART IS REGULAR IN RATE AND RHYTHM. BILATERAL LUNGS ARE NOTED TO BE CLEAR TO AUSCULTATION. ABDOMEN IS ROUND, SOFT, AND NOTED WITH MILD, DIFFUSE TENDERNESS TO PALPATION. NORMAL BOWEL SOUNDS ARE NOTED IN ALL QUADRANTS. HER VITALS THIS MORNING ARE: 97.7-81-18-97%-199/83. LABS WERE OBTAINED. ABNORMAL LAB VALUES INCLUDE THE FOLLOWING: RBC 2.83, HGB 9.0, HCT 26.1, CHLORIDE 110, CARBON DIOXIDE 19.1, CREATININE 1.34, GLUCOSE 134, TOTAL PROTEIN 5.4, ALBUMIN 2.3. URINE CULTURE IS PENDING. STOOL IS POSITIVE FOR OCCULT BLOOD. SHE IS CURRENTLY RECEIVING IV FLUIDS, IV MORPHINE, IV TORADOL, AND HOME MEDICATIONS WERE RESUMED. WE WILL INCREASE THE HYDRALAZINE TO 50MG PO TID TODAY DUE TO PERSISTENT HYPERTENSION. OTHERWISE, WE WILL FOLLOW UP WITH AM LABS AND CONTINUE TO MONITOR. - Past Medical Family Social History Past Med/Fam/Surg Hx: No changes since H&P Allergies: Allergies codeine Allergy (Verified 03/20/19 11:20) meperidine [From Demerol] Allergy (Verified 03/20/19 11:20) - Vital Signs and I&O's Vital Signs: Temperature 98.4 F Pulse Rate [Radial] 86 Respiratory Rate 18 Blood Pressure [Left Arm] 148/77 Blood Pressure [Right Arm] 200/68 Blood Pressure 148/66 O2 Sat by Pulse Oximetry 93 Intake and Output: Intake & Output 06/06/19 06/07/19 06/08/19 06/09/19 11:59 11:59 11:59 11:59 Intake Total 1090 / 1090 3220 / 3220 3434 / 3434 360 / 360 Balance 1090 / 1090 3220 / 3220 3434 / 3434 360 / 360 - Physical Exam Oriented: Normal Eyes: Normal Ear: Normal Nose: Normal Throat: Normal Respiratory: Normal Cardiovascular: Normal : Normal Auscultation: Bowel Sounds: Normal Palpation: Normal Tenderness: Diffuse, Mild. negative: Rebound, Guarding, Rigidity Skin: Normal Musculoskeletal: Normal Psychiatric: Normal Mood Description: Calm Affect: Normal Speech Pattern: Clear, Appropriate - Laboratory and Diagnostics Result Diagrams: 06/08/19 04:08 06/08/19 04:08 Labs: 06/05/19 14:35 Urine,Clean Catch Urine Culture - Final Laboratory WBC 6.4 X10^3/uL (3.6-10.0) 06/08/19 04:08 RBC 2.83 X10^6/uL (3.5-5.4) L 06/08/19 04:08 Hgb 9.0 g/dL (12.0-16.0) L 06/08/19 04:08 Hct 26.1 % (36.0-47.0) L 06/08/19 04:08 MCV 92.2 fL (80.0-100.0) 06/08/19 04:08 MCH 31.6 pg (27.0-34.0) 06/08/19 04:08 MCHC 34.3 g/dL (33.0-35.0) 06/08/19 04:08 RDW 14.3 % (11.6-16.5) 06/08/19 04:08 Plt Count 215 X10^3/uL (150.0-450.0) 06/08/19 04:08 MPV 8.6 fL (7.4-11.0) 06/08/19 04:08 Neut % (Auto) 60.1 % (42.0-75.0) 06/08/19 04:08 Lymph % (Auto) 23.3 % (21.0-51.0) 06/08/19 04:08 [place] % (Auto) 10.4 % (0.0-13.0) 06/08/19 04:08 Eos % (Auto) 5.7 % (0.9-2.9) H 06/08/19 04:08 Baso % (Auto) 0.5 % (0.2-1.0) 06/08/19 04:08 Neut # (Auto) 3.8 x10^3/uL (2.2-4.8) 06/08/19 04:08 Lymph # (Auto) 1.5 X10^3/uL (1.3-2.9) 06/08/19 04:08 [place] # (Auto) 0.7 x10^3/uL (0.3-0.8) 06/08/19 04:08 Eos # (Auto) 0.4 x10^3/uL (0.0-0.2) H 06/08/19 04:08 Baso # (Auto) 0.0 X10^3/uL (0.0-0.1) 06/08/19 04:08 Absolute Nucleated RBC 0.0 /100WBC 06/08/19 04:08 Sodium 141 mmol/L (136-145) 06/08/19 04:08 Corrected Sodium 142 mmol/L (136-145) 06/08/19 04:08 Potassium 3.8 mmol/L (3.5-5.1) 06/08/19 04:08 Chloride 110 mmol/L (98-107) H 06/08/19 04:08 Carbon Dioxide 19.1 mmol/L (21-32) L 06/08/19 04:08 BUN 14 mg/dL (7-18) 06/08/19 04:08 Creatinine 1.34 mg/dL (0.55-1.02) H 06/08/19 04:08 Est GFR (MDRD) Af Amer 48 (>60) L 06/08/19 04:08 Est GFR (MDRD) Non-Af 40 (>60) L 06/08/19 04:08 Glucose 134 mg/dL (65-99) H 06/08/19 04:08 Calcium 8.5 mg/dL (8.5-10.1) 06/08/19 04:08 Corrected Calcium 9.9 mg/dL (8.5-10.1) 06/08/19 04:08 Total Bilirubin 0.20 mg/dL (0.2-1.0) 06/08/19 04:08 AST 21 Units/L (15-37) 06/08/19 04:08 ALT 17 Units/L (12-78) 06/08/19 04:08 Alkaline Phosphatase 68 Units/L (46-116) 06/08/19 04:08 Total Protein 5.4 g/dL (6.4-8.2) L 06/08/19 04:08 Albumin 2.3 g/dL (3.4-5.0) L 06/08/19 04:08 Globulin 3.1 g/dL (2.5-4.5) 06/08/19 04:08 Albumin/Globulin Ratio 0.7 Ratio (1.1-2.1) L 06/08/19 04:08 Amylase 60 Units/L (25-115) 06/05/19 13:36 Lipase 154 Units/L (73-393) 06/05/19 13:36 Specimen Type Clean catch urine 06/05/19 14:35 Urine Color Yellow (YELLOW) 06/05/19 14:35 Urine Appearance Clear (CLEAR) 06/05/19 14:35 Urine pH 7.0 (5.0 - 8.0) 06/05/19 14:35 Ur Specific [place] 1.010 (1.000-1.030) 06/05/19 14:35 Urine Protein 4+ (NEGATIVE) 06/05/19 14:35 Urine Glucose (UA) 2+ (NEGATIVE) 06/05/19 14:35 Urine Ketones Negative (NEGATIVE) 06/05/19 14:35 Urine Occult Blood Negative (NEGATIVE) 06/05/19 14:35 Urine Nitrite Negative (NEGATIVE) 06/05/19 14:35 Urine Bilirubin Negative (NEGATIVE) 06/05/19 14:35 Urine Urobilinogen Normal (NORMAL) 06/05/19 14:35 Ur Leukocyte Esterase Negative (NEGATIVE) 06/05/19 14:35 Urine RBC None seen /HPF (NONE SEEN) 06/05/19 14:35 Urine WBC 0-2 /HPF (NONE SEEN) 06/05/19 14:35 Ur Squamous Epith Cells Rare /HPF (NEGATIVE) 06/05/19 14:35 Urine Bacteria Negative /HPF (NEGATIVE) 06/05/19 14:35 Ur Culture Indicated? No/not indicated 06/05/19 14:35 Stool Description 70g,solid,brown 06/06/19 14:52 Stl Occult Blood (IFOB) Positive (NEGATIVE) A 06/06/19 14:52 - Plan (1) Abdominal pain Status: Acute Qualifiers: Abdominal location: generalized Qualified Code(s): R10.84 - Generalized abdominal pain Plan: IV MORPHINE, IV TORADOL, IV FLUIDS, HEMOCCULT STOOLS, CONTINUE TO MONITOR (2) Nausea & vomiting Status: Acute Qualifiers: Vomiting Intractability: unspecified Plan: IV ZOFRAN, CONTINUE TO MONITOR (3) HTN (hypertension) Status: Acute Qualifiers: Hypertension type: essential hypertension Qualified Code(s): I10 - Essential (primary) hypertension Plan: CONTINUE HOME MEDS, HYDRALAZINE 50MG PO TID, NITRO PATCH, CONTINUE TO MONIOTR
[2019-06-08] MEDS: SNACK - Diabetic Appropriate PO SCH (21:38)
[2019-06-08] MEDS: LIPITOR TAB 40 MG PO SCH (21:39)
[2019-06-08] MEDS: ULTRAM PO PRN (21:42)
[2019-06-08] MEDS: COZAAR PO SCH (21:43)
[2019-06-08] MEDS: LANTUS SC SCH (21:47)
[2019-06-09 05:10] LABS: BASOPHILS % (AUTO) 0.4 % (0.2-1.0); EOSINOPHILS # (AUTO) 0.4 x10^3/uL (0.0-0.2); EOSINOPHILS % (AUTO) 3.9 % (0.9-2.9); HEMATOCRIT 28.5 % (36.0-47.0); HEMOGLOBIN 9.9 g/dL (12.0-16.0); LYMPHOCYTES # (AUTO) 2.5 X10^3/uL (1.3-2.9); LYMPHOCYTES % (AUTO) 25.7 % (21.0-51.0); MEAN CORPUSCULAR HEMOGLOBIN 31.7 pg (27.0-34.0); MEAN CORPUSCULAR HGB CONC 34.8 g/dL (33.0-35.0); MEAN CORPUSCULAR VOLUME 91.1 fL (80.0-100.0); MEAN PLATELET VOLUME 8.1 fL (7.4-11.0); NEUTROPHILS # (AUTO) 5.7 x10^3/uL (2.2-4.8); PLATELET COUNT 263 X10^3/uL (150.0-450.0); RED BLOOD COUNT 3.13 X10^6/uL (3.5-5.4); RED CELL DISTRIBUTION WIDTH 14.2 % (11.6-16.5); WHITE BLOOD COUNT 9.6 X10^3/uL (3.6-10.0)
[2019-06-09 05:22] LABS: ALANINE AMINOTRANSFERASE 18 Units/L (12-78); ALBUMIN 2.7 g/dL (3.4-5.0); ALKALINE PHOSPHATASE 75 Units/L (46-116); ASPARTATE AMINO TRANSFERASE 18 Units/L (15-37); BLOOD UREA NITROGEN 14 mg/dL (7-18); CARBON DIOXIDE 21.3 mmol/L (21-32); CHLORIDE 108 mmol/L (98-107); SODIUM 140 mmol/L (136-145); TOTAL PROTEIN 6.1 g/dL (6.4-8.2); eGFR NON BLACK RACES 41 (>60)
[2019-06-09] MEDS: APRESOLINE TAB 25 MG PO SCH ×4 (05:22→21:01)
[2019-06-09] MEDS: BENTYL CAP 10 MG PO SCH ×4 (05:22→21:02)
[2019-06-09] MEDS: K-DUR TAB 20 MEQ PO PRN (05:35)
[2019-06-09] MEDS: ALBUMIN HUMAN 25%- 100 ML 100 ML IV SCH (08:47)
[2019-06-09] MEDS: ACTOS PO SCH (08:48)
[2019-06-09] MEDS: ECOTRIN TAB 325 MG PO SCH (08:48)
[2019-06-09] MEDS: FOLIC ACID TAB 1 MG PO SCH (08:48)
[2019-06-09] MEDS: NexIUM PO SCH ×2 (08:48→20:53)
[2019-06-09] MEDS: COLACE CAP 100 MG PO SCH ×2 (08:48→20:53)
[2019-06-09] MEDS: NITRODUR PATCH 0.4 MG/HR TD SCH (08:50)
[2019-06-09] MEDS: CHECK PATCH XX SCH ×2 (08:51→21:01)
[2019-06-09] MEDS: ELAVIL PO SCH (08:51)
[2019-06-09] MEDS ORDERED: CATAPRES-TTS-3 TD SCH (09:00)
[2019-06-09] MEDS: Atrovent NEB TX 0.02% NEB SCH (09:06)
[2019-06-09] MEDS: XARELTO PO SCH ×2 (09:39→20:58)
[2019-06-09] MEDS: MAGNESIUM SULFATE 1 GRAM/100 mL PREMIX 1 GM/100 ML BAG IV PRN ×2 (10:20→12:04)
[2019-06-09] MEDS: NS 1000 ML 1,000 ML IV SCH ×2 (12:07→22:49)
[2019-06-09] MEDS: ULTRAM PO PRN (17:28)
[2019-06-09] MEDS: NORMODYNE INJ 20 MG VIAL IV PRN (17:29)
[2019-06-09] MEDS: LIPITOR TAB 40 MG PO SCH (20:53)
[2019-06-09] MEDS: COZAAR PO SCH (20:56)
[2019-06-09] MEDS: SNACK - Diabetic Appropriate PO SCH (20:59)
[2019-06-09] MEDS: LANTUS SC SCH (21:47)
[2019-06-10] MEDS: MORPHINE SULFATE INJ 2 MG INJ IVP PRN ×2 (00:38→09:40)
[2019-06-10] MEDS: NS 1000 ML 1,000 ML IV SCH ×2 (04:01→18:35)
[2019-06-10] MEDS: TORADOL 15 MG VIAL IVP PRN ×2 (04:02→21:33)
[2019-06-10] MEDS: APRESOLINE TAB 25 MG PO SCH ×3 (05:04→21:22)
[2019-06-10] MEDS: BENTYL CAP 10 MG PO SCH ×3 (05:04→21:21)
[2019-06-10 05:50] LABS: BASOPHILS % (AUTO) 0.4 % (0.2-1.0); EOSINOPHILS # (AUTO) 0.4 x10^3/uL (0.0-0.2); EOSINOPHILS % (AUTO) 5.5 % (0.9-2.9); HEMATOCRIT 26.4 % (36.0-47.0); HEMOGLOBIN 9.3 g/dL (12.0-16.0); LYMPHOCYTES # (AUTO) 1.7 X10^3/uL (1.3-2.9); LYMPHOCYTES % (AUTO) 24.4 % (21.0-51.0); MEAN CORPUSCULAR HEMOGLOBIN 32.2 pg (27.0-34.0); MEAN CORPUSCULAR HGB CONC 35.1 g/dL (33.0-35.0); MEAN CORPUSCULAR VOLUME 91.7 fL (80.0-100.0); MEAN PLATELET VOLUME 8.9 fL (7.4-11.0); MONOCYTES # (AUTO) 0.7 x10^3/uL (0.3-0.8); MONOCYTES % (AUTO) 9.7 % (0.0-13.0); NEUTROPHILS # (AUTO) 4.2 x10^3/uL (2.2-4.8); PLATELET COUNT 231 X10^3/uL (150.0-450.0); RED BLOOD COUNT 2.88 X10^6/uL (3.5-5.4); RED CELL DISTRIBUTION WIDTH 14.5 % (11.6-16.5)
[2019-06-10 05:55] LABS: ALANINE AMINOTRANSFERASE 15 Units/L (12-78); ALBUMIN 2.7 g/dL (3.4-5.0); ALKALINE PHOSPHATASE 70 Units/L (46-116); ASPARTATE AMINO TRANSFERASE 16 Units/L (15-37); BLOOD UREA NITROGEN 11 mg/dL (7-18); CALCIUM 8.8 mg/dL (8.5-10.1); CARBON DIOXIDE 20.9 mmol/L (21-32); CHLORIDE 108 mmol/L (98-107); COR CA(FOR HYPOALB) 9.8 mg/dL (8.5-10.1); SODIUM 141 mmol/L (136-145); TOTAL PROTEIN 6.1 g/dL (6.4-8.2); eGFR NON BLACK RACES 41 (>60)
[2019-06-10] MEDS: K-DUR TAB 20 MEQ PO PRN (06:19)
[2019-06-10] MEDS: NORMODYNE INJ 20 MG VIAL IV PRN ×6 (07:30→22:33)
[2019-06-10] MEDS: Atrovent NEB TX 0.02% NEB SCH (08:59)
[2019-06-10] MEDS: XARELTO PO SCH ×2 (09:18→21:32)
[2019-06-10] MEDS: ECOTRIN TAB 325 MG PO SCH (09:18)
[2019-06-10] MEDS: ALBUMIN HUMAN 25%- 100 ML 100 ML IV SCH (09:18)
[2019-06-10] MEDS: NexIUM PO SCH ×2 (09:18→21:21)
[2019-06-10] MEDS: NITRODUR PATCH 0.4 MG/HR TD SCH (09:19)
[2019-06-10] MEDS: ELAVIL PO SCH (09:19)
[2019-06-10] MEDS: FOLIC ACID TAB 1 MG PO SCH (09:19)
[2019-06-10] MEDS: COLACE CAP 100 MG PO SCH ×2 (09:19→21:20)
[2019-06-10] MEDS: ACTOS PO SCH (09:19)
[2019-06-10] MEDS: CHECK PATCH XX SCH ×2 (09:20→21:19)
[2019-06-10] MEDS: COREG TAB 6.25 MG PO SCH ×2 (11:40→21:20)
--- NOTE | 2019-06-10 19:45 | PCM.PROG ---
Progress Note - Progress Note for Day of Date of Exam: 06/09/19 - Subjective Subjective: WAS ADMITTED FOR TREATMENT OF ABDOMINAL PAIN, NAUSEA, AND VOMITING. TODAY, SHE IS ALERT AND ORIENTED, LYING IN BED ON MORNING ROUNDS. SHE CONTINUES WITH COMPLAINTS OF ABDOMINAL PAIN AND ALSO REPORTS RIGHT FLANK PAIN. SHE REPORTS GENERALIZED WEAKNESS. ON EXAMINATION, HEART IS REGULAR IN RATE AND RHYTHM. BILATERAL LUNGS ARE NOTED TO BE CLEAR TO AUSCULTATION. ABDOMEN IS ROUND, SOFT, AND NOTED WITH MILD, DIFFUSE TENDERNESS TO PALPATION. NORMAL BOWEL SOUNDS ARE NOTED IN ALL QUADRANTS. HER VITALS THIS MORNING ARE: 98.5-75-18-95%-193/74. LABS WERE OBTAINED. ABNORMAL LAB VALUES INCLUDE THE FOLLOWING: RBC 3.13, HGB 9.9, HCT 28.5, CHLORIDE 108, CREATININE 1.30, MAGNESIUM 1.5, TOTAL PROTEIN 6.1, ALBUMIN 2.7. URINE CULTURE IS PENDING. STOOL IS POSITIVE FOR OCCULT BLOOD. SHE IS CURRENTLY RECEIVING IV FLUIDS, IV MORPHINE, IV TORADOL, AND HOME MEDICATIONS WERE RESUMED. TODAY, WE WILL INCREASED LOSARTAN TO 100MG PO DAILY. OTHERWISE, WE WILL FOLLOW UP WITH AM LABS AND CONTINUE TO MONITOR. - Past Medical Family Social History Past Med/Fam/Surg Hx: No changes since H&P Allergies: Allergies codeine Allergy (Verified 03/20/19 11:20) meperidine [From Demerol] Allergy (Verified 03/20/19 11:20) - Vital Signs and I&O's Vital Signs: Temperature 98.3 F Pulse Rate [Radial] 67 Pulse Rate 65 Respiratory Rate 16 Blood Pressure [Left Arm] 166/63 Blood Pressure [Right Arm] 172/68 Blood Pressure 148/66 O2 Sat by Pulse Oximetry 96 Intake and Output: Intake & Output 06/08/19 06/09/19 06/10/19 06/11/19 11:59 11:59 11:59 11:59 Intake Total 3434 / 3434 920 / 920 1740 / 1740 480 / 480 Balance 3434 / 3434 920 / 920 1740 / 1740 480 / 480 - Physical Exam Oriented: Normal Eyes: Normal Ear: Normal Nose: Normal Throat: Normal Respiratory: Normal Cardiovascular: Normal : Normal Auscultation: Bowel Sounds: Normal Palpation: Normal Tenderness: Diffuse, Mild. negative: Rebound, Guarding, Rigidity Skin: Normal Musculoskeletal: Normal Psychiatric: Normal Mood Description: Calm Affect: Normal Speech Pattern: Clear, Appropriate - Laboratory and Diagnostics Result Diagrams: 06/10/19 04:05 06/10/19 04:05 Labs: 06/05/19 14:35 Urine,Clean Catch Urine Culture - Final Laboratory WBC 7.0 X10^3/uL (3.6-10.0) 06/10/19 04:05 RBC 2.88 X10^6/uL (3.5-5.4) L 06/10/19 04:05 Hgb 9.3 g/dL (12.0-16.0) L 06/10/19 04:05 Hct 26.4 % (36.0-47.0) L 06/10/19 04:05 MCV 91.7 fL (80.0-100.0) 06/10/19 04:05 MCH 32.2 pg (27.0-34.0) 06/10/19 04:05 MCHC 35.1 g/dL (33.0-35.0) H 06/10/19 04:05 RDW 14.5 % (11.6-16.5) 06/10/19 04:05 Plt Count 231 X10^3/uL (150.0-450.0) 06/10/19 04:05 MPV 8.9 fL (7.4-11.0) 06/10/19 04:05 Neut % (Auto) 60.0 % (42.0-75.0) 06/10/19 04:05 Lymph % (Auto) 24.4 % (21.0-51.0) 06/10/19 04:05 [place] % (Auto) 9.7 % (0.0-13.0) 06/10/19 04:05 Eos % (Auto) 5.5 % (0.9-2.9) H 06/10/19 04:05 Baso % (Auto) 0.4 % (0.2-1.0) 06/10/19 04:05 Neut # (Auto) 4.2 x10^3/uL (2.2-4.8) 06/10/19 04:05 Lymph # (Auto) 1.7 X10^3/uL (1.3-2.9) 06/10/19 04:05 [place] # (Auto) 0.7 x10^3/uL (0.3-0.8) 06/10/19 04:05 Eos # (Auto) 0.4 x10^3/uL (0.0-0.2) H 06/10/19 04:05 Baso # (Auto) 0.0 X10^3/uL (0.0-0.1) 06/10/19 04:05 Absolute Nucleated RBC 0.0 /100WBC 06/10/19 04:05 Sodium 141 mmol/L (136-145) 06/10/19 04:05 Corrected Sodium TNP 06/10/19 04:05 Potassium 3.6 mmol/L (3.5-5.1) 06/10/19 04:05 Chloride 108 mmol/L (98-107) H 06/10/19 04:05 Carbon Dioxide 20.9 mmol/L (21-32) L 06/10/19 04:05 BUN 11 mg/dL (7-18) 06/10/19 04:05 Creatinine 1.30 mg/dL (0.55-1.02) H 06/10/19 04:05 Est GFR (MDRD) Af Amer 50 (>60) L 06/10/19 04:05 Est GFR (MDRD) Non-Af 41 (>60) L 06/10/19 04:05 Glucose 99 mg/dL (65-99) 06/10/19 04:05 Calcium 8.8 mg/dL (8.5-10.1) 06/10/19 04:05 Corrected Calcium 9.8 mg/dL (8.5-10.1) 06/10/19 04:05 Magnesium 2.0 mg/dL (1.7-2.9) 06/10/19 04:05 Total Bilirubin 0.30 mg/dL (0.2-1.0) 06/10/19 04:05 AST 16 Units/L (15-37) 06/10/19 04:05 ALT 15 Units/L (12-78) 06/10/19 04:05 Alkaline Phosphatase 70 Units/L (46-116) 06/10/19 04:05 Total Protein 6.1 g/dL (6.4-8.2) L 06/10/19 04:05 Albumin 2.7 g/dL (3.4-5.0) L 06/10/19 04:05 Globulin 3.4 g/dL (2.5-4.5) 06/10/19 04:05 Albumin/Globulin Ratio 0.8 Ratio (1.1-2.1) L 06/10/19 04:05 Amylase 60 Units/L (25-115) 06/05/19 13:36 Lipase 154 Units/L (73-393) 06/05/19 13:36 Specimen Type Clean catch urine 06/05/19 14:35 Urine Color Yellow (YELLOW) 06/05/19 14:35 Urine Appearance Clear (CLEAR) 06/05/19 14:35 Urine pH 7.0 (5.0 - 8.0) 06/05/19 14:35 Ur Specific [place] 1.010 (1.000-1.030) 06/05/19 14:35 Urine Protein 4+ (NEGATIVE) 06/05/19 14:35 Urine Glucose (UA) 2+ (NEGATIVE) 06/05/19 14:35 Urine Ketones Negative (NEGATIVE) 06/05/19 14:35 Urine Occult Blood Negative (NEGATIVE) 06/05/19 14:35 Urine Nitrite Negative (NEGATIVE) 06/05/19 14:35 Urine Bilirubin Negative (NEGATIVE) 06/05/19 14:35 Urine Urobilinogen Normal (NORMAL) 06/05/19 14:35 Ur Leukocyte Esterase Negative (NEGATIVE) 06/05/19 14:35 Urine RBC None seen /HPF (NONE SEEN) 06/05/19 14:35 Urine WBC 0-2 /HPF (NONE SEEN) 06/05/19 14:35 Ur Squamous Epith Cells Rare /HPF (NEGATIVE) 06/05/19 14:35 Urine Bacteria Negative /HPF (NEGATIVE) 06/05/19 14:35 Ur Culture Indicated? No/not indicated 06/05/19 14:35 Stool Description 70g,solid,brown 06/06/19 14:52 Stl Occult Blood (IFOB) Positive (NEGATIVE) A 06/06/19 14:52 - Plan (1) Abdominal pain Status: Acute Qualifiers: Abdominal location: generalized Qualified Code(s): R10.84 - Generalized abdominal pain Plan: IV MORPHINE, IV TORADOL, IV FLUIDS, HEMOCCULT STOOLS, CONTINUE TO MONITOR (2) Nausea & vomiting Status: Acute Qualifiers: Vomiting Intractability: unspecified Plan: IV ZOFRAN, CONTINUE TO MONITOR (3) HTN (hypertension) Status: Acute Qualifiers: Hypertension type: essential hypertension Qualified Code(s): I10 - Ess ential (primary) hypertension Plan: CATAPRES PATCH, HYDRALAZINE 50MG PO TID, LOSARTAN 100MG PO DAILY, NITRO PATCH, CONTINUE TO MONIOTR
[2019-06-10] MEDS: SNACK - Diabetic Appropriate PO SCH (21:19)
[2019-06-10] MEDS: LIPITOR TAB 40 MG PO SCH (21:20)
[2019-06-10] MEDS: COZAAR PO SCH (21:20)
[2019-06-10] MEDS: LANTUS SC SCH (21:22)
[2019-06-10] MEDS: HumuLIN R SUBCUT PRN (21:25)
[2019-06-11] MEDS: NS 1000 ML 1,000 ML IV SCH ×2 (01:49→06:29)
[2019-06-11 05:19] LABS: BASOPHILS % (AUTO) 0.6 % (0.2-1.0); EOSINOPHILS # (AUTO) 0.5 x10^3/uL (0.0-0.2); HEMATOCRIT 28.5 % (36.0-47.0); HEMOGLOBIN 9.8 g/dL (12.0-16.0); LYMPHOCYTES # (AUTO) 1.3 X10^3/uL (1.3-2.9); LYMPHOCYTES % (AUTO) 18.8 % (21.0-51.0); MEAN CORPUSCULAR HEMOGLOBIN 32.2 pg (27.0-34.0); MEAN CORPUSCULAR HGB CONC 34.5 g/dL (33.0-35.0); MEAN CORPUSCULAR VOLUME 93.1 fL (80.0-100.0); MEAN PLATELET VOLUME 8.3 fL (7.4-11.0); MONOCYTES # (AUTO) 0.6 x10^3/uL (0.3-0.8); MONOCYTES % (AUTO) 9.2 % (0.0-13.0); NEUTROPHILS # (AUTO) 4.3 x10^3/uL (2.2-4.8); NEUTROPHILS % (AUTO) 63.4 % (42.0-75.0); PLATELET COUNT 257 X10^3/uL (150.0-450.0); RED BLOOD COUNT 3.06 X10^6/uL (3.5-5.4); RED CELL DISTRIBUTION WIDTH 14.5 % (11.6-16.5); WHITE BLOOD COUNT 6.8 X10^3/uL (3.6-10.0)
[2019-06-11 05:20] LABS: ALANINE AMINOTRANSFERASE 18 Units/L (12-78); ALKALINE PHOSPHATASE 101 Units/L (46-116); ASPARTATE AMINO TRANSFERASE 18 Units/L (15-37); BLOOD UREA NITROGEN 18 mg/dL (7-18); CALCIUM 9.3 mg/dL (8.5-10.1); CARBON DIOXIDE 18.8 mmol/L (21-32); CHLORIDE 110 mmol/L (98-107); COR CA(FOR HYPOALB) 10.1 mg/dL (8.5-10.1); CREATININE 1.51 mg/dL (0.55-1.02); SODIUM 142 mmol/L (136-145); TOTAL PROTEIN 6.5 g/dL (6.4-8.2); eGFR NON BLACK RACES 35 (>60)
[2019-06-11] MEDS: APRESOLINE TAB 25 MG PO SCH ×3 (06:11→21:11)
[2019-06-11] MEDS: BENTYL CAP 10 MG PO SCH ×3 (06:12→21:11)
[2019-06-11] MEDS: NORMODYNE INJ 20 MG VIAL IV PRN ×2 (06:13→11:55)
[2019-06-11] MEDS ORDERED: XARELTO ONE (07:43)
[2019-06-11] MEDS: Atrovent NEB TX 0.02% NEB SCH (08:40)
[2019-06-11] MEDS: ACTOS PO SCH (08:46)
[2019-06-11] MEDS: ECOTRIN TAB 325 MG PO SCH (08:46)
[2019-06-11] MEDS: ALBUMIN HUMAN 25%- 100 ML 100 ML IV SCH (08:47)
[2019-06-11] MEDS: FOLIC ACID TAB 1 MG PO SCH (08:47)
[2019-06-11] MEDS: ELAVIL PO SCH (08:48)
[2019-06-11] MEDS: COLACE CAP 100 MG PO SCH ×2 (08:48→20:54)
[2019-06-11] MEDS: COREG TAB 6.25 MG PO SCH (08:49)
[2019-06-11] MEDS: XARELTO PO SCH ×2 (08:49→20:56)
[2019-06-11] MEDS: NexIUM PO SCH ×2 (08:49→20:56)
[2019-06-11] MEDS: CHECK PATCH XX SCH ×2 (08:50→20:53)
[2019-06-11] MEDS ORDERED: VITAMIN D (1.25MG) PO SCH (09:00)
[2019-06-11] MEDS: NITRODUR PATCH 0.4 MG/HR TD SCH (09:02)
[2019-06-11] MEDS ORDERED: COREG TAB 6.25 MG PO NR (10:30)
[2019-06-11] MEDS: MORPHINE SULFATE INJ 2 MG INJ IVP PRN ×2 (10:41→14:33)
--- NOTE | 2019-06-11 10:50 | RAD ---
History: Chest pain and shortness of breath Study: Upright portable AP chest Comparison: February 14, 2019 Findings: There is vascular congestion. There is interstitial edema. There is small pleural effusions. The heart size is prominent. Impression: Acute CHF Reported By:
[2019-06-11 11:11] LABS: CKMB % 2.4 % (<4); CREATINE KINASE MB 1.3 ng/mL (0-4.0); TROPONIN I 0.05 ng/mL (0-1.5)
[2019-06-11] MEDS ORDERED: LASIX IVP ONE (13:34)
[2019-06-11] MEDS: LASIX IVP SCH ×2 (14:35→20:55)
[2019-06-11 15:02] LABS: BILIRUBIN,URINE NEGATIVE (NEGATIVE); BLOOD/HEMOGLOBIN,URINE NEGATIVE (NEGATIVE); GLUCOSE, URINE 1+ (NEGATIVE); KETONES,URINE NEGATIVE (NEGATIVE); LEUKOCYTE ESTERASE ,URINE NEGATIVE (NEGATIVE); NITRITES,URINE NEGATIVE (NEGATIVE); PROTEIN,URINE 4+ (NEGATIVE); UROBILINOGEN,URINE NORMAL (NORMAL)
[2019-06-11 15:13] LABS: AMORPHOUS SEDIMENT,UR 3+ /HPF (NEGATIVE); APPEARANCE,URINE SLIGHTLY HAZY (CLEAR); BACTERIA,URINE TRACE /HPF (NEGATIVE); COLOR,URINE PALE YELLOW (YELLOW); RBC,URINE NONE SEEN /HPF (0-3); SQUAMOUS EPITHELIAL CELL,UR RARE /HPF (NEGATIVE)
[2019-06-11 16:48] LABS: CKMB % 2.9 % (<4); TROPONIN I 0.06 ng/mL (0-1.5)
--- NOTE | 2019-06-11 19:16 | PCM.PROG ---
Progress Note - Progress Note for Day of Date of Exam: 06/10/19 - Subjective Subjective: WAS ADMITTED FOR TREATMENT OF ABDOMINAL PAIN, NAUSEA, AND VOMITING. TODAY, SHE IS ALERT AND ORIENTED, LYING IN BED ON MORNING ROUNDS. SHE CONTINUES WITH COMPLAINTS OF ABDOMINAL PAIN. TODAY, SHE REPORTS THAT PAIN IS LOCATED ON THE LEFT LOWER QUADRANT. SHE ALSO CONTINUES WITH WEAKNESS. STAFF REPORTS THAT HER BLOOD PRESSURE CONTINUES TO BE ELEVATED. ON EXAMINATION, HEART IS REGULAR IN RATE AND RHYTHM. BILATERAL LUNGS ARE NOTED TO BE CLEAR TO AUSCULTATION. ABDOMEN IS ROUND, SOFT, AND NOTED WITH MILD, DIFFUSE TENDERNESS TO PALPATION. NORMAL BOWEL SOUNDS ARE NOTED IN ALL QUADRANTS. HER VITALS THIS MORNING ARE: 97.8-94-18-96%-230/90. LABS WERE OBTAINED. ABNORMAL LAB VALUES INCLUDE THE FOLLOWING: RBC 2.88, HGB 9.3, HCT 26.4, CHLORIDE 108, CARBON DIOXIDE 20.9, CREATININE 1.30, TOTAL PROTEIN 6.1, ALBUMIN 2.7. SHE IS CURRENTLY RECEIVING IV FLUIDS, IV MORPHINE, IV TORADOL, AND HOME MEDICATIONS WERE RESUMED. TODAY, WE WILL ADD COREG 6.25MG PO BID AND CONTINUE WITH OTHER HYPERTENSIVES. OTHERWISE, WE WILL FOLLOW UP WITH AM LABS AND CONTINUE TO MONITOR. - Past Medical Family Social History Past Med/Fam/Surg Hx: No changes since H&P Allergies: Allergies codeine Allergy (Verified 03/20/19 11:20) meperidine [From Demerol] Allergy (Verified 03/20/19 11:20) - Vital Signs and I&O's Vital Signs: Temperature 98.0 F Pulse Rate [Radial] 94 Pulse Rate 78 Respiratory Rate 22 Blood Pressure [Left Arm] 183/78 Blood Pressure [Right Arm] 205/88 Blood Pressure 148/66 O2 Sat by Pulse Oximetry 96 Intake and Output: Intake & Output 06/09/19 06/10/19 06/11/19 06/12/19 11:59 11:59 11:59 11:59 Intake Total 920 / 920 1740 / 1740 1740 / 1740 240 / 240 Balance 920 / 920 1740 / 1740 1740 / 1740 240 / 240 - Physical Exam Oriented: Normal Eyes: Normal Ear: Normal Nose: Normal Throat: Normal Respiratory: Normal Cardiovascular: Normal : Normal Auscultation: Bowel Sounds: Normal Palpation: Normal Tenderness: Diffuse, Mild. negative: Rebound, Guarding, Rigidity Skin: Normal Musculoskeletal: Normal Psychiatric: Normal Mood Description: Calm Affect: Normal Speech Pattern: Clear, Appropriate - Laboratory and Diagnostics Result Diagrams: 06/11/19 04:53 06/11/19 04:53 Labs: 06/05/19 14:35 Urine,Clean Catch Urine Culture - Final Laboratory WBC 6.8 X10^3/uL (3.6-10.0) 06/11/19 04:53 RBC 3.06 X10^6/uL (3.5-5.4) L 06/11/19 04:53 Hgb 9.8 g/dL (12.0-16.0) L 06/11/19 04:53 Hct 28.5 % (36.0-47.0) L 06/11/19 04:53 MCV 93.1 fL (80.0-100.0) 06/11/19 04:53 MCH 32.2 pg (27.0-34.0) 06/11/19 04:53 MCHC 34.5 g/dL (33.0-35.0) 06/11/19 04:53 RDW 14.5 % (11.6-16.5) 06/11/19 04:53 Plt Count 257 X10^3/uL (150.0-450.0) 06/11/19 04:53 MPV 8.3 fL (7.4-11.0) 06/11/19 04:53 Neut % (Auto) 63.4 % (42.0-75.0) 06/11/19 04:53 Lymph % (Auto) 18.8 % (21.0-51.0) L 06/11/19 04:53 [place] % (Auto) 9.2 % (0.0-13.0) 06/11/19 04:53 Eos % (Auto) 8.0 % (0.9-2.9) H 06/11/19 04:53 Baso % (Auto) 0.6 % (0.2-1.0) 06/11/19 04:53 Neut # (Auto) 4.3 x10^3/uL (2.2-4.8) 06/11/19 04:53 Lymph # (Auto) 1.3 X10^3/uL (1.3-2.9) 06/11/19 04:53 [place] # (Auto) 0.6 x10^3/uL (0.3-0.8) 06/11/19 04:53 Eos # (Auto) 0.5 x10^3/uL (0.0-0.2) H 06/11/19 04:53 Baso # (Auto) 0.0 X10^3/uL (0.0-0.1) 06/11/19 04:53 Absolute Nucleated RBC 0.0 /100WBC 06/11/19 04:53 Sodium 142 mmol/L (136-145) 06/11/19 04:53 Corrected Sodium TNP 06/11/19 04:53 Potassium 3.9 mmol/L (3.5-5.1) 06/11/19 04:53 Chloride 110 mmol/L (98-107) H 06/11/19 04:53 Carbon Dioxide 18.8 mmol/L (21-32) L 06/11/19 04:53 BUN 18 mg/dL (7-18) 06/11/19 04:53 Creatinine 1.51 mg/dL (0.55-1.02) H 06/11/19 04:53 Est GFR (MDRD) Af Amer 42 (>60) L 06/11/19 04:53 Est GFR (MDRD) Non-Af 35 (>60) L 06/11/19 04:53 Glucose 99 mg/dL (65-99) 06/11/19 04:53 POC Glucose (mg/dL) 105 mg/dL (65-99) H 06/11/19 17:21 Calcium 9.3 mg/dL (8.5-10.1) 06/11/19 04:53 Corrected Calcium 10.1 mg/dL (8.5-10.1) 06/11/19 04:53 Magnesium 2.0 mg/dL (1.7-2.9) 06/10/19 04:05 Total Bilirubin 0.30 mg/dL (0.2-1.0) 06/11/19 04:53 AST 18 Units/L (15-37) 06/11/19 04:53 ALT 18 Units/L (12-78) 06/11/19 04:53 Alkaline Phosphatase 101 Units/L (46-116) 06/11/19 04:53 Creatine Kinase 35 Units/L (26-192) 06/11/19 16:08 CK-MB (CK-2) 1.0 ng/mL (0-4.0) 06/11/19 16:08 CK/CKMB % Calc 2.9 % (<4) 06/11/19 16:08 Troponin I 0.06 ng/mL (0-1.5) 06/11/19 16:08 Total Protein 6.5 g/dL (6.4-8.2) 06/11/19 04:53 Albumin 3.0 g/dL (3.4-5.0) L 06/11/19 04:53 Globulin 3.5 g/dL (2.5-4.5) 06/11/19 04:53 Albumin/Globulin Ratio 0.9 Ratio (1.1-2.1) L 06/11/19 04:53 Amylase 60 Units/L (25-115) 06/05/19 13:36 Lipase 154 Units/L (73-393) 06/05/19 13:36 Specimen Type Catherized urine 06/11/19 14:25 Urine Color Pale yellow (YELLOW) 06/11/19 14:25 Urine Appearance Slightly hazy (CLEAR) 06/11/19 14:25 Urine pH 5.0 (5.0 - 8.0) 06/11/19 14:25 Ur Specific [place] 1.020 (1.000-1.030) 06/11/19 14:25 Urine Protein 4+ (NEGATIVE) 06/11/19 14:25 Urine Glucose (UA) 1+ (NEGATIVE) 06/11/19 14:25 Urine Ketones Negative (NEGATIVE) 06/11/19 14:25 Urine Occult Blood Negative (NEGATIVE) 06/11/19 14:25 Urine Nitrite Negative (NEGATIVE) 06/11/19 14:25 Urine Bilirubin Negative (NEGATIVE) 06/11/19 14:25 Urine Urobilinogen Normal (NORMAL) 06/11/19 14:25 Ur Leukocyte Esterase Negative (NEGATIVE) 06/11/19 14:25 Urine RBC None seen /HPF (0-3) 06/11/19 14:25 Urine WBC None seen /HPF (0-5) 06/11/19 14:25 Ur Squamous Epith Cells Rare /HPF (NEGATIVE) 06/11/19 14:25 Amorphous Sediment 3+ /HPF (NEGATIVE) 06/11/19 14:25 Urine Bacteria Trace /HPF (NEGATIVE) 06/11/19 14:25 Ur Culture Indicated? No/not indicated 06/11/19 14:25 Stool Description 70g,solid,brown 06/06/19 14:52 Stl Occult Blood (IFOB) Positive (NEGATIVE) A 06/06/19 14:52 - Plan (1) Abdominal pain Status: Acute Qualifiers: Abdominal location: generalized Qualified Code(s): R10.84 - Generalized abdominal pain Plan: IV MORPHINE, IV TORADOL, IV FLUIDS, HEMOCCULT STOOLS, CONTINUE TO MONITOR (2) Nausea & vomiting Status: Acute Qualifiers: Vomiting Intractability: unspecified Plan: IV ZOFRAN, CONTINUE TO MONITOR (3) HTN (hypertension) Status: Acute Qualifiers: Hypertension type: essential hypertension Qualified Code(s): I10 - Essential (primary) hypertension Plan: CATAPRES PATCH, HYDRALAZINE 50MG PO TID, LOSARTAN 100MG PO DAILY, COREG 6.25MG PO BID, NITRO PATCH, CONTINUE TO MONITOR
[2019-06-11] MEDS: SNACK - Diabetic Appropriate PO SCH (20:53)
[2019-06-11] MEDS: COZAAR PO SCH (20:55)
[2019-06-11] MEDS: LIPITOR TAB 40 MG PO SCH (20:55)
[2019-06-11] MEDS: COREG TAB 12.5 MG PO SCH (20:55)
[2019-06-11] MEDS: LANTUS SC SCH (20:56)
[2019-06-11 22:03] LABS: CKMB % 3.6 % (<4); CREATINE KINASE MB 1.1 ng/mL (0-4.0); TROPONIN I 0.07 ng/mL (0-1.5)
[2019-06-12 04:10] LABS: BASOPHILS # (AUTO) 0.1 X10^3/uL (0.0-0.1); BASOPHILS % (AUTO) 0.9 % (0.2-1.0); EOSINOPHILS # (AUTO) 0.5 x10^3/uL (0.0-0.2); EOSINOPHILS % (AUTO) 7.7 % (0.9-2.9); HEMOGLOBIN 9.4 g/dL (12.0-16.0); LYMPHOCYTES # (AUTO) 1.4 X10^3/uL (1.3-2.9); LYMPHOCYTES % (AUTO) 22.4 % (21.0-51.0); MEAN CORPUSCULAR HEMOGLOBIN 31.8 pg (27.0-34.0); MEAN CORPUSCULAR HGB CONC 34.7 g/dL (33.0-35.0); MEAN CORPUSCULAR VOLUME 91.6 fL (80.0-100.0); MEAN PLATELET VOLUME 7.8 fL (7.4-11.0); MONOCYTES # (AUTO) 0.6 x10^3/uL (0.3-0.8); MONOCYTES % (AUTO) 9.7 % (0.0-13.0); NEUTROPHILS # (AUTO) 3.7 x10^3/uL (2.2-4.8); NEUTROPHILS % (AUTO) 59.3 % (42.0-75.0); PLATELET COUNT 280 X10^3/uL (150.0-450.0); RED BLOOD COUNT 2.94 X10^6/uL (3.5-5.4); RED CELL DISTRIBUTION WIDTH 14.4 % (11.6-16.5); WHITE BLOOD COUNT 6.3 X10^3/uL (3.6-10.0)
[2019-06-12 04:23] LABS: CALCIUM 9.2 mg/dL (8.5-10.1); CARBON DIOXIDE 21.8 mmol/L (21-32); CREATININE 1.68 mg/dL (0.55-1.02)
[2019-06-12] MEDS: NORMODYNE INJ 20 MG VIAL IV PRN (04:40)
[2019-06-12] MEDS: APRESOLINE TAB 25 MG PO SCH ×2 (05:55→13:41)
[2019-06-12] MEDS: BENTYL CAP 10 MG PO SCH ×2 (05:56→13:41)
--- NOTE | 2019-06-12 06:03 | RAD ---
HISTORY: Abdominal pain Study: Flat upright abdomen one-view chest Comparison: 06/11/2019 Findings: The abdominal gas pattern is nonspecific and nonobstructive. No pneumoperitoneum is identified. There is a moderately large amount of stool within the colon suggestive of possible constipation. No abnormal masses or abnormal calcifications are identified. The heart is within normal limits in size. Pulmonary venous congestion is present. Interstitial prominence is present suggestive of edema. Bilateral small pleural effusions are present. The bony thorax is unremarkable. IMPRESSION: No acute abdominal findings Possible constipation Mild congestive heart failure unchanged Bilateral small pleural effusions Reported By:
[2019-06-12] MEDS: Atrovent NEB TX 0.02% NEB SCH (08:50)
[2019-06-12] MEDS ORDERED: CATAPRES-TTS-3 TD SCH (09:00)
[2019-06-12] MEDS ORDERED: MIRALAX POWDER (1 DOSE 17 G) PO SCH (09:00)
[2019-06-12] MEDS: ACTOS PO SCH (10:03)
[2019-06-12] MEDS: COLACE CAP 100 MG PO SCH (10:03)
[2019-06-12] MEDS: ECOTRIN TAB 325 MG PO SCH (10:04)
[2019-06-12] MEDS: ELAVIL PO SCH (10:04)
[2019-06-12] MEDS: COREG TAB 12.5 MG PO SCH (10:04)
[2019-06-12] MEDS: FOLIC ACID TAB 1 MG PO SCH (10:04)
[2019-06-12] MEDS: NITRODUR PATCH 0.4 MG/HR TD SCH (10:05)
[2019-06-12] MEDS: ALBUMIN HUMAN 25%- 100 ML 100 ML IV SCH (10:05)
[2019-06-12] MEDS: CHECK PATCH XX SCH (10:07)
[2019-06-12] MEDS: NexIUM PO SCH (10:08)
[2019-06-12] MEDS: MILK OF MAGNESIA PO SCH ×2 (10:20→13:38)
[2019-06-12] MEDS ORDERED: XARELTO ONE (10:29)
[2019-06-12] MEDS: XARELTO PO SCH (10:32)
--- NOTE | 2019-06-12 10:34 | US ---
HISTORY: Abnormal renal function Study: Bilateral renal sonogram Comparison: None Technique: Multiple grayscale sonographic images were obtained. Findings: The right kidney measured 9.3 x 5.8 x 6.6 cm. There is cortical thinning present. No solid masses, hydronephrosis, stones, or perinephric fluid collections were identified. The left kidney measured 9.5 x 4.9 x 4.2 cm. There is some cortical thinning present. No solid masses, hydronephrosis, stones, or perinephric fluid collections are identified. There is a right pleural effusion present. The bladder is drained by a Barber catheter. IMPRESSION: Bilateral renal cortical thinning Right pleural effusion Reported By:
[2019-06-12 14:10] VITALS: BP 203/73
== END 2019-06-12 14:40 | disposition home or self-care (01) | DRG 392 ==
LOC: MED/SURG
PROVIDERS: ADMIT Internal Medicine; ATTEND Internal Medicine
DX: R10.31 Right lower quadrant pain; R11.2 Nausea with vomiting, unspecified; R26.89 Other abnormalities of gait and mobility; K92.1 Melena; E11.65 Type 2 diabetes mellitus with hyperglycemia; K21.9 Gastro-esophageal reflux disease without esophagitis; E78.2 Mixed hyperlipidemia; J44.9 Chronic obstructive pulmonary disease, unspecified; I10 Essential (primary) hypertension; E03.8 Other specified hypothyroidism; F41.8 Other specified anxiety disorders
CPT/HCPCS: 36415; 71010; 71045; 74022; 74176; 76770; 80053; 81001; 82150; 82270; 82550; 82553; 83690; 83735; 84484; 85025; 87086; 93005; 94640; 94660; 94760; 97110; 97162; A4216; A4222; A4618; A7030; P9047; G0378; J1815; J1885; J1940; J2270; J3475; J3490; J7030; J7644

== ENCOUNTER 2019-07-24 13:49 | Observation (INO) ==
--- NOTE | 2019-07-24 16:36 | RAD ---
HISTORY: Left abdominal pain Study: Frontal view of the chest, flat and upright views of the abdomen Comparison: None. Findings: Cardiomediastinal silhouette is normal in size. No focal consolidations, pleural effusions or pneumothorax. Bilateral hyper expansion with coarsening of interstitial markings.. Flat and upright views of the abdomen demonstrates a normal bowel gas pattern. No free air. No abnormal calcifications or abnormal soft tissue shadows. No acute bony abnormalities. IMPRESSION: 1. No acute cardiopulmonary disease. 2. No evidence for acute abdominal pathology. Reported By:
[2019-07-24 16:42] LABS: BASOPHILS # (AUTO) 0.1 X10^3/uL (0.0-0.1); BASOPHILS % (AUTO) 0.7 % (0.2-1.0); EOSINOPHILS # (AUTO) 0.1 x10^3/uL (0.0-0.2); HEMATOCRIT 34.4 % (36.0-47.0); LYMPHOCYTES # (AUTO) 2.4 X10^3/uL (1.3-2.9); LYMPHOCYTES % (AUTO) 23.3 % (21.0-51.0); MEAN CORPUSCULAR HGB CONC 34.9 g/dL (33.0-35.0); MEAN CORPUSCULAR VOLUME 88.9 fL (80.0-100.0); MEAN PLATELET VOLUME 7.6 fL (7.4-11.0); MONOCYTES # (AUTO) 0.7 x10^3/uL (0.3-0.8); MONOCYTES % (AUTO) 6.4 % (0.0-13.0); NEUTROPHILS # (AUTO) 7.1 x10^3/uL (2.2-4.8); NEUTROPHILS % (AUTO) 68.6 % (42.0-75.0); PLATELET COUNT 382 X10^3/uL (150.0-450.0); RED BLOOD COUNT 3.87 X10^6/uL (3.5-5.4); RED CELL DISTRIBUTION WIDTH 13.7 % (11.6-16.5); WHITE BLOOD COUNT 10.3 X10^3/uL (3.6-10.0)
[2019-07-24 16:53] LABS: ALBUMIN 3.1 g/dL (3.4-5.0); CALCIUM 10.3 mg/dL (8.5-10.1); CARBON DIOXIDE 22.7 mmol/L (21-32); CREATININE 1.93 mg/dL (0.55-1.02); TOTAL PROTEIN 7.4 g/dL (6.4-8.2)
[2019-07-24] MEDS ORDERED: NS 1000 ML 1,000 ML ONE (17:33)
[2019-07-24] MEDS: NS 1000 ML 1,000 ML IV SCH ×2 (17:34→20:36)
[2019-07-24] MEDS ORDERED: POTASSIUM CHL 40 MEQ/NS 0.45% 500 ML IV PRN (17:41)
[2019-07-24] MEDS ORDERED: KLOR-CON PO PRN (17:41)
[2019-07-24] MEDS ORDERED: K-RIDER 10 MEQ/NS 100 ML 10 MEQ/100 ML BAG IV PRN (17:41)
[2019-07-24] MEDS ORDERED: MAGNESIUM SULFATE 1 GRAM/100 mL PREMIX 1 GM/100 ML BAG IV PRN (17:41)
[2019-07-24] MEDS ORDERED: POTASSIUM CHL 60 MEQ/NS 0.45% 500 ML IV PRN (17:41)
[2019-07-24] MEDS ORDERED: K-DUR TAB 20 MEQ PO PRN (17:41)
[2019-07-24] MEDS ORDERED: MICRO K EXTEN CAP 10 MEQ PO PRN (17:41)
[2019-07-24] MEDS ORDERED: POTASSIUM CHLORIDE LIQ 20 MEQ UDC PO PRN (17:41)
[2019-07-24] MEDS ORDERED: AFLURIA II4 or FLUARIX II4 IM ONE (18:23)
[2019-07-24 18:24] VITALS: BMI 17.6
[2019-07-24] MEDS ORDERED: NITRODUR PATCH 0.4 MG/HR TD ONE (18:38)
[2019-07-24 19:10] LABS: BILIRUBIN,URINE NEGATIVE (NEGATIVE); BLOOD/HEMOGLOBIN,URINE 1+ (NEGATIVE); GLUCOSE, URINE 2+ (NEGATIVE); KETONES,URINE 2+ (NEGATIVE); LEUKOCYTE ESTERASE ,URINE NEGATIVE (NEGATIVE); NITRITES,URINE NEGATIVE (NEGATIVE); PROTEIN,URINE 4+ (NEGATIVE); UROBILINOGEN,URINE NORMAL (NORMAL)
[2019-07-24 19:13] LABS: APPEARANCE,URINE CLEAR (CLEAR); COLOR,URINE YELLOW (YELLOW)
[2019-07-24 19:19] LABS: BACTERIA,URINE NEGATIVE /HPF (NEGATIVE); RBC,URINE 0-2 /HPF (0-3); SQUAMOUS EPITHELIAL CELL,UR NEGATIVE /HPF (NEGATIVE)
[2019-07-24] MEDS ORDERED: CATAPRES-TTS-3 TD SCH (20:00)
[2019-07-24] MEDS: PULMICORT NEB TX 0.5 MG NEB SCH (20:27)
[2019-07-24] MEDS: MAG-OX TAB PO SCH (20:34)
[2019-07-24] MEDS: CHECK PATCH XX SCH (20:39)
[2019-07-25 05:10] LABS: BASOPHILS # (AUTO) 0.1 X10^3/uL (0.0-0.1); BASOPHILS % (AUTO) 0.9 % (0.2-1.0); EOSINOPHILS # (AUTO) 0.1 x10^3/uL (0.0-0.2); EOSINOPHILS % (AUTO) 1.5 % (0.9-2.9); LYMPHOCYTES # (AUTO) 2.1 X10^3/uL (1.3-2.9); LYMPHOCYTES % (AUTO) 33.8 % (21.0-51.0); MEAN CORPUSCULAR HEMOGLOBIN 31.5 pg (27.0-34.0); MEAN CORPUSCULAR HGB CONC 34.6 g/dL (33.0-35.0); MEAN CORPUSCULAR VOLUME 91.1 fL (80.0-100.0); MEAN PLATELET VOLUME 8.2 fL (7.4-11.0); MONOCYTES # (AUTO) 0.7 x10^3/uL (0.3-0.8); MONOCYTES % (AUTO) 11.2 % (0.0-13.0); NEUTROPHILS # (AUTO) 3.3 x10^3/uL (2.2-4.8); NEUTROPHILS % (AUTO) 52.6 % (42.0-75.0); PLATELET COUNT 284 X10^3/uL (150.0-450.0); RED BLOOD COUNT 3.18 X10^6/uL (3.5-5.4); RED CELL DISTRIBUTION WIDTH 13.4 % (11.6-16.5); WHITE BLOOD COUNT 6.3 X10^3/uL (3.6-10.0)
[2019-07-25 05:22] LABS: ALBUMIN 2.2 g/dL (3.4-5.0); CALCIUM 8.8 mg/dL (8.5-10.1); CARBON DIOXIDE 23.6 mmol/L (21-32); COR CA(FOR HYPOALB) 10.2 mg/dL (8.5-10.1); CREATININE 1.8 mg/dL (0.55-1.02); TOTAL PROTEIN 5.7 g/dL (6.4-8.2)
[2019-07-25] MEDS: NS 1000 ML 1,000 ML IV SCH ×3 (05:49→18:59)
[2019-07-25] MEDS ORDERED: ZOFRAN INJ 4 MG VIAL IVP PRN (06:02)
[2019-07-25] MEDS: MAG-OX TAB PO SCH ×2 (06:06→09:08)
[2019-07-25] MEDS: PULMICORT NEB TX 0.5 MG NEB SCH ×2 (08:56→20:13)
[2019-07-25] MEDS: CHECK PATCH XX SCH ×2 (09:05→20:29)
--- NOTE | 2019-07-25 09:33 | CT ---
CT ABDOMEN AND PELVIS WITH ORAL CONTRAST CLINICAL HISTORY: 83-year-old female with left-sided abdominal pain. History of COPD and CHF. Prior cholecystectomy and lithotripsy. COMPARISON: CT abdomen and pelvis 06/05/2019. TECHNIQUE: Multiple axial CT images of the abdomen and pelvis were obtained following the administration of oral contrast. No intravenous contrast was administered. The images were reformatted in the sagittal and coronal planes. Dose reduction techniques including Automated Exposure Control (AEC) and adjustment of mA and kV were utilized. FINDINGS: The lung bases are clear without pulmonary nodules, masses, or pleural fluid collections. Hyperinflation of the lungs with prominent interstitium/septal thickening consistent with history of COPD. Cardiomegaly without pericardial effusion. Severe atherosclerotic calcification coronary vessels. The liver, pancreas, and spleen are within normal limits for a study without IV contrast. Status post cholecystectomy. Adrenal glands unremarkable for study without IV contrast. Unchanged punctate nonobstructing right renal parenchymal stone. Unchanged perinephric stranding and mild bilateral renal atrophy. The ureters run in an unobstructed course to a well distended urinary bladder. Status post hysterectomy. Vaginal cuff and adnexa unremarkable. Multiple pelvic phleboliths. The bowel is without obstruction or inflammation and there is no free fluid or free air within the peritoneal cavity. Appendix not visualized, no pericecal inflammatory change. There are no pathologically enlarged lymph nodes in the abdomen or pelvis. Soft tissues are normal. Unchanged appearance of severe calcific atherosclerotic plaque throughout the aorta and its branches. Multilevel degenerative change of the imaged spine. IMPRESSION: 1. No acute intra-abdominal or intrapelvic process. 2. Chronic nonobstructing punctate right renal stone. 3. Again demonstrated severe atherosclerotic calcifications within the aorta and its branches, outpatient evaluation by vascular surgery is recommended. Reported By:
[2019-07-25] MEDS ORDERED: AFLURIA II4 or FLUARIX II4 IM ONE (12:00)
[2019-07-25] MEDS ORDERED: APRESOLINE TAB 25 MG ONE (12:38)
[2019-07-25] MEDS ORDERED: COREG TAB 6.25 MG ONE ×2 (12:38→15:59)
[2019-07-25] MEDS: APRESOLINE TAB 25 MG PO SCH ×3 (12:40→21:52)
[2019-07-25] MEDS ORDERED: CATAPRES-TTS-3 TD SCH (13:00)
[2019-07-25] MEDS ORDERED: COREG TAB 12.5 MG PO SCH (13:00)
[2019-07-25] MEDS: COREG TAB 12.5 MG PO SCH ×2 (16:00→20:28)
[2019-07-25] MEDS: XARELTO PO SCH (20:55)
[2019-07-25] MEDS ORDERED: LIPITOR TAB 40 MG PO SCH (21:00)
[2019-07-25] MEDS ORDERED: COZAAR PO SCH (21:00)
[2019-07-25] MEDS: ULTRAM PO PRN (22:02)
[2019-07-26 05:26] LABS: BASOPHILS # (AUTO) 0.1 X10^3/uL (0.0-0.1); BASOPHILS % (AUTO) 0.9 % (0.2-1.0); EOSINOPHILS # (AUTO) 0.1 x10^3/uL (0.0-0.2); EOSINOPHILS % (AUTO) 2.1 % (0.9-2.9); HEMATOCRIT 28.5 % (36.0-47.0); HEMOGLOBIN 9.9 g/dL (12.0-16.0); LYMPHOCYTES # (AUTO) 1.6 X10^3/uL (1.3-2.9); LYMPHOCYTES % (AUTO) 27.4 % (21.0-51.0); MEAN CORPUSCULAR HEMOGLOBIN 31.4 pg (27.0-34.0); MEAN CORPUSCULAR HGB CONC 34.6 g/dL (33.0-35.0); MEAN CORPUSCULAR VOLUME 90.7 fL (80.0-100.0); MEAN PLATELET VOLUME 8.2 fL (7.4-11.0); MONOCYTES # (AUTO) 0.5 x10^3/uL (0.3-0.8); MONOCYTES % (AUTO) 9.1 % (0.0-13.0); NEUTROPHILS # (AUTO) 3.6 x10^3/uL (2.2-4.8); NEUTROPHILS % (AUTO) 60.5 % (42.0-75.0); PLATELET COUNT 267 X10^3/uL (150.0-450.0); RED BLOOD COUNT 3.14 X10^6/uL (3.5-5.4); RED CELL DISTRIBUTION WIDTH 13.4 % (11.6-16.5); WHITE BLOOD COUNT 5.9 X10^3/uL (3.6-10.0)
[2019-07-26 05:40] LABS: ALBUMIN 2.1 g/dL (3.4-5.0); CARBON DIOXIDE 20.3 mmol/L (21-32); COR CA(FOR HYPOALB) 10.5 mg/dL (8.5-10.1); CREATININE 1.59 mg/dL (0.55-1.02); TOTAL PROTEIN 5.6 g/dL (6.4-8.2)
[2019-07-26] MEDS: ULTRAM PO PRN ×2 (05:40→13:43)
[2019-07-26] MEDS: APRESOLINE TAB 25 MG PO SCH ×2 (05:40→13:31)
[2019-07-26] MEDS: NS 1000 ML 1,000 ML IV SCH ×2 (05:45→10:18)
[2019-07-26] MEDS: XARELTO PO SCH (08:25)
[2019-07-26] MEDS: COREG TAB 12.5 MG PO SCH (08:25)
[2019-07-26] MEDS: MAG-OX TAB PO SCH (08:25)
[2019-07-26] MEDS: CHECK PATCH XX SCH (08:26)
[2019-07-26] MEDS: PULMICORT NEB TX 0.5 MG NEB SCH (09:10)
[2019-07-26 16:17] VITALS: BP 134/46
--- NOTE | 2019-07-26 21:21 | DR.H&P ---
H&P - History & Physical for Day of: H&P Date: 07/24/19 - Chief Complaint Chief Complaint: ABDOMINAL PAIN - History of Present Illness History of Present Illness: IS A 83 YEAR OLD PATIENT OF OURS WHO WAS A DIRECT ADMISSION FOR COMPLAINTS OF LOWER ABDOMINAL PAIN. PAIN REPORTEDLY STARTED TWO DAYS PRIOR. ON ADMISSION, VITALS WERE 98.2-757-34-100%-225/107. LABS WERE OBTAINED. ABNORMAL LAB VALUES INCLUDE THE FOLLOWING: WBC 10.3, HCT 34.4, SODIUM 134, BUN 23, CREATININE 1.93, GLUCOSE 200, AST 12, ALBUMIN 3.1. A URINALYSIS WAS OBTAINED AND WAS UNREMARKABLE, BUT A CULTURE WAS SET UP. AN ABDOMEN XRAY WAS OBTAINED AND REVEALED: NO EVIDENCE FOR ACUTE ABDOMINAL PATHOLOGY. NO ACUTE CARDIOPULMONARY DISEASE. SHE WAS STARTED ON NORMAL SALINE AT 75ML/HR, POTASSIUM AND MAGNESIUM PROTOCOLS, AND HOME MEDICATIONS, INCLUDING ANTI-HYPERTENSIVES WERE RESUMED. WE WILL OBTAIN AN ABDOMEN/PELVIS CT IN THE MORNING. OTHERWISE, WE PLAN TO FOLLOW UP WITH AM LABS AND CONTINUE TO MONITOR. - Past Medical History Past Medical History: Coronary Artery Disease, Hypertension, Diabetes, Renal Disease, Kidney Stones - Past Surgical History Surgical History: Cholecystectomy, Hysterectomy - Family History Family Medical History: Diabetes Mellitus, MD, Coronary Artery Disease - Social History Does patient currently use any type of tobacco product: No Have you used tobacco products in the last 12 months: No Type of Tobacco Use: None Does any household member use tobacco: No Alcohol Use: None Drug Use: None - Medications Home Medications: codeine Allergy (Verified 03/20/19 11:20) meperidine [From Demerol] Allergy (Verified 03/20/19 11:20) CONTINUE taking the following medications amitriptyline 10 mg PO DAILY 07/25/19 [History] budesonide-formoterol [Symbicort] 2 puff INHALATION BID 07/25/19 [History] tiotropium bromide [Spiriva with HandiHaler] 1 cap INHALATION DAILY 07/25/19 [History] New Prescriptions carvedilol [Coreg] 12.5 mg PO BID #60 tab 07/26/19 [Rx] - Review of Systems Constitutional: See HPI, Weakness Eyes: No Symptoms Reported ENT: No Symptoms Reported Respiratory: No Symptoms Reported Cardiovascular: No Symptoms Reported Gastrointestinal: See HPI, Nausea, Abdominal Pain Genitourinary: No Symptoms Reported Musculoskeletal: No Symptoms Reported Skin: No Symptoms Reported Neurological: Weakness - Physical Exam Vital Signs: Temperature 98.4 F Pulse Rate [Right Brachial] 60 Pulse Rate 66 Respiratory Rate 18 Blood Pressure [Left Arm] 183/78 Blood Pressure [Right Arm] 134/46 O2 Sat by Pulse Oximetry 99 Oriented: Normal Eyes: Normal Ear: Normal Nose: Normal Throat: Normal Respiratory: Diminished Throughout Cardiovascular: Normal : Normal Auscultation: Bowel Sounds: Normal Palpation: Normal Tenderness: RLQ, LLQ, Moderate. negative: Rebound, Guarding, Rigidity Skin: Normal Musculoskeletal: Normal Psychiatric: Normal Mood Description: Calm Affect: Normal Speech Pattern: Clear - Assessment/Plan (1) Abdominal pain Qualifiers: Abdominal location: lower abdomen, unspecified Qualified Code(s): R10.30 - Lower abdominal pain, unspecified Status: Acute Plan: ADMIT, OBTAIN ABDOMEN/PELVIS CT IN AM, CONTINUE TO MONITOR - Allergies Allergies/Adverse Reactions: Allergies Allergy/AdvReac Type Severity Reaction Status Date / Time codeine Allergy Verified 03/20/19 11:20 meperidine [From Demerol] Allergy Verified 03/20/19 11:20
== END 2019-07-26 18:20 | disposition home health service (06) ==
LOC: MED/SURG
PROVIDERS: ADMIT Internal Medicine; ATTEND Internal Medicine
DX: E11.9 Type 2 diabetes mellitus without complications; R10.30 Lower abdominal pain, unspecified; I25.10 Atherosclerotic heart disease of native coronary artery without angina pectoris; I10 Essential (primary) hypertension
CPT/HCPCS: 36415; 74022; 74176; 80053; 81001; 83735; 85025; 87086; 90674; 90686; 94640; 96367; 96372; 96374; A4222; G0378; J2405; J7030; J7626

== ENCOUNTER 2019-10-25 07:20 | Observation (INO) ==
[2019-10-25 07:38] VITALS: BMI 17.7
--- NOTE | 2019-10-25 08:15 | ED.ABDFE ---
HPI Time Seen Time Seen by Provider: 10/25/19 08:05 PCP Primary Care Physician: TATI HPI Comment HPI Comment: PATIENT IS 84YR OLD FEMALE HERE IN ER WITH GRAND DAUGHTER WITH ABDOMINAL AND LOWER BACK PAIN. PAIN 8/10, SHARP RADIATING TO GROIN AREA. BP E LEVATED IN ER. HISTORY HTN, DM AND KIDNEY STONE. TRAMADOL AND TYLENOL DID NOT RELIEVE THE PAIN. NO FEVER OR DYSURIA OR TRAUMA. HAVE URINARY FREQUENCY. Complaint Doctors Chief Complaint Comments: ABDOMINAL AND LOWER BACK PAIN. Chief Complaint:: PAIN IN STOMACH AND BACK Self Treatment fo Chief Complaint: TRAMADOL AND 2 TYLENOL THIS AM Reviewed Nurses Notes Review: Yes Source History Provided: Patient and Family Member Mode of arrival Mode of Arrival: Ambulatory Timing Onset of Chief Complaint: 05/21/17 Came on: Gradually Duration Since Onset: Constant Location Location: Diffuse Severity Severity: Moderate Quality Quality: Sharp Context History of: Abdominal surgery (CHOLECYSTECTOMY, HYSTERECTOMY) Modifying factors Worsening Factors: Movement Improving Factors: Lying Still Associated signs and symptoms Associated Signs and Symptoms: Melena, Frequency and Hematuria Other history Other History: DM, HTN, CAD. PMH PMH Past Medical History: Yes Past Medical History: Anxiety, Asthma, Depression, Diabetes, Dyslipidemia, Hypertension and Kidney Stones Past Medical History Comment: CHF , STENT IN HEART AND KIDNEYS Past Surgical History: Yes Surgical History: Cholecystectomy and Hysterectomy Past Surgical History Comment: STENTS IN HEART AND KIDNEYS , SURGERY ON BOTH KIDNEYS Family History History of Family Medical Conditions: Yes Family Medical History: Diabetes Mellitus, Cancer and Coronary Artery Disease Social History Does patient currently use any type of tobacco product: No Have you used tobacco products in the last 12 months: No Type of Tobacco Use: None Does any household member use tobacco: Yes Alcohol Use: None Do you use any recreational Drugs:: No Lives With: Family Lives Where: Home infectious screening In the last 2 months have you had wt loss of >10#?: NO Have you had fever, night sweats or hemotysis?: No Have you traveled outside the country in the last 6 months?: No Isolation: Standard ROS Review of Systems Constitutional: See HPI, Weakness and Fatigue; negative Fever Eyes: No Symptoms Reported and See HPI ENTM: No Symptoms Reported and See HPI; negative Ear Pain, Nose Discharge, Nose Congestion and Throat Pain Respiratoy: See HPI and Short of Breath; negative Moist Cough and Wheezing Cardiovascular: No Symptoms Reported, See HPI and Palpitations; negative Chest Pain and Edema Gastrointestinal/Abdominal: Abdominal Pain; negative Constipation, Diarrhea and Vomiting Genitourinary: See HPI and Frequency; negative Dysuria and Hematuria Neurological: See HPI and Weakness; negative Headache and Dizziness Musculoskeletal: See HPI and Back Pain (LOWER BACK.) Integumentary: See HPI and Dryness; negative Change in Color, Rash and Juandice Hematologic/Lymphatic: See HPI, Easy Bleeding and Easy Bruising; negative Swollen Glands Endocrine: See HPI; negative Increased Thirst and Increased Urine Psychiatric: No Symptoms Reported and See HPI All Other Systems: Reviewed and Negative PE Vital Signs Vitals: Temperature 97.6 F Pulse Rate [Apical] 85 Pulse Rate [Left Brachial] 103 Pulse Rate 74 Respiratory Rate 15 Blood Pressure [Left Arm] 183/78 Blood Pressure [Right Arm] 217/162 Blood Pressure 199/165 O2 Sat by Pulse Oximetry 98 General Limitations: No Limitations General Appearance: Alert and In No Apparent Distress Head Head Exam: Normal Inspection and Atraumatic Eyes Eye exam: Normal Appearance and PERRL; negative Scleral Icterus and Conjunctival Injection ENT ENT Exam: Normal Exam, Normal Oropharynx, Normal External Ear Exam and TM's Normal Bilaterally Neck Neck Exam: Normal Inspection and Trachea Midline; negative Tenderness and Lymphadenopathy Chest Chest Inspection: Normal Inspection and Symmetric Chest Wall Rise; negative Tenderness Respiratory Respiratory Exam: Normal Lung Sounds Bilat and Respiratory Distress; negative Accessory Muscle Use and Chest Wall Tenderness Respiratory Exam: Bilateral: Rhonchi and Lower: Rhonchi Cardiovascular Cardiovascular Exam: Regular Rate, Normal Rhythm, Normal Heart Sounds and +S3; negative Systolic Murmur and Diastolic Murmur Abdominal Exam Abdominal Exam: Normal Inspection, Normal Bowel Sounds, Soft and Tenderness Abdominal Tenderness: Diffuse and Moderate Rectal Rectal Exam: Deferred Back Back Exam: Normal Inspection; negative (R) CVA Tenderness and (L) CVA Tenderness Extremeties Extremities Exam: Normal Inspection and Normal Capillary Refill; negative Tenderness, Edema and Calf Tenderness External Exam: Female: Deferred : Speculum Exam (Female): Deferred : Bimanual Exam (female): Deferred Neurologic Neurological Exam: Alert and Oriented X3; negative Motor Sensory Deficit Psychiatric Psychiatric Exam: Normal Affect and Normal Mood Skin Skin Exam: Dry MDM Differential Diagnosis Differential Diagnosis- Considerations may include:: Appendicitis, Bowel Obstruction, Constipation, Diverticular disease, Gastritus/PUD, Inflammatory BD, Ischemic Bowel, Pancreatitis, Urinary tract infection and Urolithiasis COURSE Treatment Treatment: SEE ORDERS. MORPHIN 4MG IV AND ZOFRAN 4MGIV. Education/Counseling Education/Counseling: Patient and Family Educated On: Diagnosis ROR Labs Reviewed Laboratory Results Reviewed?: Yes Result Diagrams: 10/27/19 05:00 10/27/19 05:00 Laboratory: WBC 7.7 X10^3/uL (3.6-10.0) 10/25/19 08:42 RBC 3.59 X10^6/uL (3.5-5.4) 10/25/19 08:42 Hgb 11.3 g/dL (12.0-16.0) L 10/25/19 08:42 Hct 32.9 % (36.0-47.0) L 10/25/19 08:42 MCV 91.7 fL (80.0-100.0) 10/25/19 08:42 MCH 31.5 pg (27.0-34.0) 10/25/19 08:42 MCHC 34.4 g/dL (33.0-35.0) 10/25/19 08:42 RDW 14.8 % (11.6-16.5) 10/25/19 08:42 Plt Count 393 X10^3/uL (150.0-450.0) 10/25/19 08:42 MPV 8.2 fL (7.4-11.0) 10/25/19 08:42 Neut % (Auto) 52.2 % (42.0-75.0) 10/25/19 08:42 Lymph % (Auto) 35.0 % (21.0-51.0) 10/25/19 08:42 [place] % (Auto) 9.3 % (0.0-13.0) 10/25/19 08:42 Eos % (Auto) 2.4 % (0.9-2.9) 10/25/19 08:42 Baso % (Auto) 1.1 % (0.2-1.0) H 10/25/19 08:42 Neut # (Auto) 4.0 x10^3/uL (2.2-4.8) 10/25/19 08:42 Lymph # (Auto) 2.7 X10^3/uL (1.3-2.9) 10/25/19 08:42 [place] # (Auto) 0.7 x10^3/uL (0.3-0.8) 10/25/19 08:42 Eos # (Auto) 0.2 x10^3/uL (0.0-0.2) 10/25/19 08:42 Baso # (Auto) 0.1 X10^3/uL (0.0-0.1) 10/25/19 08:42 Absolute Nucleated RBC 0.0 /100WBC 10/25/19 08:42 Sodium 138 mmol/L (136-145) 10/25/19 08:42 Corrected Sodium 139 mmol/L (136-145) 10/25/19 08:42 Potassium 4.3 mmol/L (3.5-5.1) 10/25/19 08:42 Chloride 101 mmol/L (98-107) 10/25/19 08:42 Carbon Dioxide 21.4 mmol/L (21-32) 10/25/19 08:42 BUN 23 mg/dL (7-18) H 10/25/19 08:42 Creatinine 1.92 mg/dL (0.55-1.02) H 10/25/19 08:42 Est GFR (MDRD) Af Amer 32 (>60) L 10/25/19 08:42 Est GFR (MDRD) Non-Af 26 (>60) L 10/25/19 08:42 Glucose 139 mg/dL (65-99) H 10/25/19 08:42 Calcium 10.5 mg/dL (8.5-10.1) H 10/25/19 08:42 Corrected Calcium 11.1 mg/dL (8.5-10.1) H 10/25/19 08:42 Magnesium 1.9 mg/dL (1.7-2.9) 10/25/19 08:42 Total Bilirubin 0.30 mg/dL (0.2-1.0) 10/25/19 08:42 AST 17 Units/L (15-37) 10/25/19 08:42 ALT 20 Units/L (12-78) 10/25/19 08:42 Alkaline Phosphatase 73 Units/L (46-116) 10/25/19 08:42 Creatine Kinase 37 Units/L (26-192) 10/25/19 13:27 CK-MB (CK-2) 1.0 ng/mL (0-4.0) 10/25/19 13:27 CK/CKMB % Calc 2.7 % (<4) 10/25/19 13:27 Troponin I 0.03 ng/mL (0-1.5) 10/25/19 13:27 Total Protein 7.8 g/dL (6.4-8.2) 10/25/19 08:42 Albumin 3.2 g/dL (3.4-5.0) L 10/25/19 08:42 Globulin 4.6 g/dL (2.5-4.5) H 10/25/19 08:42 Albumin/Globulin Ratio 0.7 Ratio (1.1-2.1) L 10/25/19 08:42 Amylase 62 Units/L (25-115) 10/25/19 08:42 Lipase 122 Units/L (73-393) 10/25/19 08:42 Specimen Type Clean catch urine 10/25/19 09:02 Urine Color Straw (YELLOW) 10/25/19 09:02 Urine Appearance Clear (CLEAR) 10/25/19 09:02 Urine pH 8.0 (5.0 - 8.0) 10/25/19 09:02 Ur Specific [place] 1.015 (1.000-1.030) 10/25/19 09:02 Urine Protein 4+ (NEGATIVE) 10/25/19 09:02 Urine Glucose (UA) 1+ (NEGATIVE) 10/25/19 09:02 Urine Ketones Negative (NEGATIVE) 10/25/19 09:02 Urine Occult Blood Negative (NEGATIVE) 10/25/19 09: Urine Nitrite Negative (NEGATIVE) 10/25/19 09:02 Urine Bilirubin Negative (NEGATIVE) 10/25/19 09:02 Urine Urobilinogen Normal (NORMAL) 10/25/19 09:02 Ur Leukocyte Esterase Negative (NEGATIVE) 10/25/19 09:02 Urine RBC None seen /HPF (0-3) 10/25/19 09:02 Urine WBC 0-2 /HPF (0-5) 10/25/19 09:02 Ur Squamous Epith Cells Few /HPF (NEGATIVE) 10/25/19 09:02 Urine Bacteria Trace /HPF (NEGATIVE) 10/25/19 09:02 Urine Mucus Few /HPF (NEGATIVE) 10/25/19 09:02 Ur Culture Indicated? No/not indicated 10/25/19 09:02 XRAY XRAY Interpreted by: Radiologist XRAY Findings: REPORT NOTED AND DISCUSSED WITH PATIENT AND FAMILY. EKG Rate: 89 [place]: Normal Rhythm: NSR (SUPRAVETRICULAR BIGEMINY.) Block: None Hypertrophy: LVH ST: Nonsp Opioid Opioid Risk Tool Age (Pasha box if 16-45): No History of Preadolescent Sexual Abuse: No Total: 0 Total Score Risk Category: Low Risk Copyright: Walter MARTINEZ predicting aberrant behaviors Diagnosis Discharge Problem: Hypertensive urgency, Abdominal pain, Abnormal cardiac enzyme level Instructions Instructions: Chronic Obstructive Pulmonary Disease, Uzua-wy-Kskm Abdominal Pain, Adult, Plsj-xu-Udks Hypertension, Xeun-ex-Aeoi Heart Failure, Dryk-vq-Zlid Diabetes Mellitus and Nutrition Forms: Excuse From Work
--- NOTE | 2019-10-25 08:36 | RAD ---
HISTORY:Shortness of breathStudy: Single view chestComparison:06/11/2019Findings:No infiltrate, effusion, or pneumothorax identified .Cardiac and mediastinal contours are within normal limits .The soft tissues are intact .IMPRESSION:1. No acute cardiopulmonary abnormality.Electronically signed by: HONORIO KENDRICK (Oct 25, 2019 08:34:13)
[2019-10-25] MEDS ORDERED: ZOFRAN INJ 4 MG VIAL IVP ONE (08:51)
[2019-10-25] MEDS ORDERED: MORPHINE SULFATE INJ 4 MG IVP ONE (08:51)
[2019-10-25 09:01] LABS: BASOPHILS # (AUTO) 0.1 X10^3/uL (0.0-0.1); BASOPHILS % (AUTO) 1.1 % (0.2-1.0); EOSINOPHILS # (AUTO) 0.2 x10^3/uL (0.0-0.2); EOSINOPHILS % (AUTO) 2.4 % (0.9-2.9); HEMATOCRIT 32.9 % (36.0-47.0); HEMOGLOBIN 11.3 g/dL (12.0-16.0); LYMPHOCYTES # (AUTO) 2.7 X10^3/uL (1.3-2.9); MEAN CORPUSCULAR HEMOGLOBIN 31.5 pg (27.0-34.0); MEAN CORPUSCULAR HGB CONC 34.4 g/dL (33.0-35.0); MEAN CORPUSCULAR VOLUME 91.7 fL (80.0-100.0); MEAN PLATELET VOLUME 8.2 fL (7.4-11.0); MONOCYTES # (AUTO) 0.7 x10^3/uL (0.3-0.8); MONOCYTES % (AUTO) 9.3 % (0.0-13.0); NEUTROPHILS % (AUTO) 52.2 % (42.0-75.0); PLATELET COUNT 393 X10^3/uL (150.0-450.0); RED BLOOD COUNT 3.59 X10^6/uL (3.5-5.4); RED CELL DISTRIBUTION WIDTH 14.8 % (11.6-16.5); WHITE BLOOD COUNT 7.7 X10^3/uL (3.6-10.0)
[2019-10-25] MEDS ORDERED: ZOFRAN INJ 4 MG VIAL ONE (09:01)
[2019-10-25] MEDS ORDERED: MORPHINE SULFATE INJ 4 MG ONE (09:01)
[2019-10-25 09:07] LABS: BILIRUBIN,URINE NEGATIVE (NEGATIVE); BLOOD/HEMOGLOBIN,URINE NEGATIVE (NEGATIVE); GLUCOSE, URINE 1+ (NEGATIVE); KETONES,URINE NEGATIVE (NEGATIVE); LEUKOCYTE ESTERASE ,URINE NEGATIVE (NEGATIVE); NITRITES,URINE NEGATIVE (NEGATIVE); PROTEIN,URINE 4+ (NEGATIVE); UROBILINOGEN,URINE NORMAL (NORMAL)
[2019-10-25 09:11] LABS: APPEARANCE,URINE CLEAR (CLEAR); COLOR,URINE STRAW (YELLOW)
[2019-10-25 09:12] LABS: CALCIUM 10.5 mg/dL (8.5-10.1); CARBON DIOXIDE 21.4 mmol/L (21-32); CREATININE 1.92 mg/dL (0.55-1.02); TROPONIN I 0.03 ng/mL (0-1.5)
[2019-10-25 09:14] LABS: BACTERIA,URINE TRACE /HPF (NEGATIVE); RBC,URINE NONE SEEN /HPF (0-3); SQUAMOUS EPITHELIAL CELL,UR FEW /HPF (NEGATIVE)
[2019-10-25 09:15] LABS: MUCUS,URINE FEW /HPF (NEGATIVE)
[2019-10-25 09:26] LABS: ALBUMIN 3.2 g/dL (3.4-5.0); CKMB % 2.3 % (<4); COR CA(FOR HYPOALB) 11.1 mg/dL (8.5-10.1); TOTAL PROTEIN 7.8 g/dL (6.4-8.2)
--- NOTE | 2019-10-25 11:17 | CT ---
HISTORY:Abdominal painStudy: CT abdomen and pelvis without contrastComparison:07/25/2019Technique: Multiple axial images of the abdomen and pelvis were obtained without IV contrast. Oral contrast was administered. Dose reduction techniques including Automated Exposure Control (AEC) and adjustment of mA and kV were utilized.FINDINGS:Please note evaluation is limited without IV contrast.There is a trace right pleural effusion. The liver, spleen, pancreas, and adrenal glands are unremarkable in their unenhanced appearance. Gallbladder is removed. There are punctate nonobstructing bilateral renal calculi. No evidence of ureteral obstruction.No free intraperitoneal air. No evidence of intestinal obstruction or inflammation. Appendix not visualized. Oral contrast reaches the ascending colon. No free fluid is seen. There are few scattered sigmoid diverticula without acute inflammation. There is moderate retained stool in the colon.The soft tissues and osseous structures are intact. There is extensive calcified plaque throughout the aorta and branch vessels with probable high-grade aortic stenosis in the infrarenal portion due to large calcified plaque burden. No pathologically enlarged lymph nodes are identified. Normal urinary bladder. Uterus is removed.IMPRESSION ABDOMEN/PELVIS:1. Punctate bilateral nonobstructing renal calculi.2. Trace right pleural effusion.3. Extensive vascular plaque with probable high-grade aortic stenosis again demonstrated. Evaluation limited without IV contrast.4. Additional chronic findings as described.Electronically signed by: HONORIO KENDRICK (Oct 25, 2019 11:16:26)
--- NOTE | 2019-10-25 11:18 | RAD ---
HISTORY:Recent trauma, left forearm painStudy:Two views left forearmComparison: NoneFindings:Allignment is normal. No acute fracture or dislocation identified. The soft tissues are intact. In T6 pathic changes are present at the olecranon. No joint effusion at the elbow. Radiocarpal alignment appears intact.IMPRESSION:1. No acute osseous abnormalityElectronically signed by: HONORIO KENDRICK (Oct 25, 2019 11:17:21)
[2019-10-25] MEDS ORDERED: VASOTEC INJ 2.5 MG VIAL IVP ONE (11:39)
[2019-10-25] MEDS ORDERED: VASOTEC INJ 2.5 MG VIAL ONE (12:07)
[2019-10-25 14:36] LABS: CKMB % 2.7 % (<4); TROPONIN I 0.03 ng/mL (0-1.5)
[2019-10-25] MEDS ORDERED: ULTRAM PO PRN (14:52)
[2019-10-25] MEDS ORDERED: CATAPRES-TTS-3 TD SCH (15:00)
[2019-10-25] MEDS ORDERED: NITRODUR PATCH 0.4 MG/HR TD SCH (15:00)
[2019-10-25] MEDS ORDERED: NORMODYNE INJ 100 MG VIAL IVP ONE (15:04)
[2019-10-25] MEDS ORDERED: NORMODYNE INJ 100 MG VIAL ONE (15:13)
[2019-10-25] MEDS ORDERED: NS 1/2 1000 ML IV 1,000 ML IV ONE (15:51)
[2019-10-25] MEDS: NS 1/2 1000 ML IV 1,000 ML IV SCH (15:57)
[2019-10-25] MEDS: FOLIC ACID TAB 1 MG PO SCH (15:58)
[2019-10-25] MEDS: COREG TAB 12.5 MG PO SCH (20:23)
[2019-10-25] MEDS: LIPITOR TAB 40 MG PO SCH (20:23)
[2019-10-25] MEDS: COZAAR PO SCH (20:23)
[2019-10-25] MEDS: COLACE CAP 100 MG PO SCH (20:23)
[2019-10-25] MEDS ORDERED: PULMICORT NEB TX 0.5 MG NEB SCH (21:00)
[2019-10-25] MEDS ORDERED: NexIUM PO SCH (21:00)
[2019-10-25] MEDS ORDERED: PATIENT'S HOME MEDICATION (Budesonide-Formoterol 2 PUFF) IN SCH (21:00)
[2019-10-25] MEDS: APRESOLINE TAB 25 MG PO SCH (21:04)
[2019-10-25] MEDS: BENTYL CAP 10 MG PO SCH (21:04)
[2019-10-25] MEDS: PULMICORT NEB TX 0.5 MG NEB SCH (21:26)
[2019-10-25] MEDS: XOPENEX 1.25 MG/3 ML NEBULE NEB SCH (21:26)
[2019-10-25] MEDS: XARELTO PO SCH (21:30)
[2019-10-25 23:03] LABS: CKMB % 2.6 % (<4); CREATINE KINASE 39 Units/L (26-192); CREATINE KINASE MB < 1.0 ng/mL (0-4.0); TROPONIN I 0.03 ng/mL (0-1.5)
[2019-10-26] MEDS: BENTYL CAP 10 MG PO SCH ×3 (05:45→21:14)
[2019-10-26] MEDS: APRESOLINE TAB 25 MG PO SCH ×3 (05:46→21:12)
[2019-10-26 06:14] LABS: BASOPHILS # (AUTO) 0.1 X10^3/uL (0.0-0.1); BASOPHILS % (AUTO) 1.1 % (0.2-1.0); EOSINOPHILS # (AUTO) 0.2 x10^3/uL (0.0-0.2); EOSINOPHILS % (AUTO) 3.4 % (0.9-2.9); HEMATOCRIT 26.5 % (36.0-47.0); HEMOGLOBIN 9.2 g/dL (12.0-16.0); LYMPHOCYTES # (AUTO) 1.9 X10^3/uL (1.3-2.9); LYMPHOCYTES % (AUTO) 35.1 % (21.0-51.0); MEAN CORPUSCULAR HEMOGLOBIN 32.5 pg (27.0-34.0); MEAN CORPUSCULAR HGB CONC 34.9 g/dL (33.0-35.0); MEAN CORPUSCULAR VOLUME 93.2 fL (80.0-100.0); MONOCYTES # (AUTO) 0.5 x10^3/uL (0.3-0.8); MONOCYTES % (AUTO) 10.2 % (0.0-13.0); NEUTROPHILS # (AUTO) 2.7 x10^3/uL (2.2-4.8); NEUTROPHILS % (AUTO) 50.2 % (42.0-75.0); PLATELET COUNT 319 X10^3/uL (150.0-450.0); RED BLOOD COUNT 2.84 X10^6/uL (3.5-5.4); WHITE BLOOD COUNT 5.4 X10^3/uL (3.6-10.0)
[2019-10-26 06:31] LABS: ALANINE AMINOTRANSFERASE 14 Units/L (12-78); ALBUMIN 2.4 g/dL (3.4-5.0); ALKALINE PHOSPHATASE 52 Units/L (46-116); ASPARTATE AMINO TRANSFERASE 14 Units/L (15-37); BLOOD UREA NITROGEN 24 mg/dL (7-18); CALCIUM 9.4 mg/dL (8.5-10.1); CARBON DIOXIDE 25.3 mmol/L (21-32); CHLORIDE 103 mmol/L (98-107); COR CA(FOR HYPOALB) 10.7 mg/dL (8.5-10.1); CREATININE 2.04 mg/dL (0.55-1.02); MAGNESIUM 1.9 mg/dL (1.7-2.9); SODIUM 137 mmol/L (136-145); TOTAL PROTEIN 5.9 g/dL (6.4-8.2); eGFR NON BLACK RACES 25 (>60)
[2019-10-26] MEDS ORDERED: MIRALAX POWDER (1 DOSE 17 G) ONE (08:44)
[2019-10-26] MEDS: ACTOS PO SCH (08:50)
[2019-10-26] MEDS: COLACE CAP 100 MG PO SCH ×2 (08:51→21:12)
[2019-10-26] MEDS: FOLIC ACID TAB 1 MG PO SCH (08:51)
[2019-10-26] MEDS: PROTONIX TAB 40 MG PO SCH (08:51)
[2019-10-26] MEDS: K-DUR TAB 20 MEQ PO SCH (08:51)
[2019-10-26] MEDS: ECOTRIN TAB 325 MG PO SCH (08:52)
[2019-10-26] MEDS: COREG TAB 12.5 MG PO SCH ×2 (08:52→21:12)
[2019-10-26] MEDS: ELAVIL PO SCH (08:52)
[2019-10-26] MEDS: NITRODUR PATCH 0.4 MG/HR TD SCH (08:53)
[2019-10-26] MEDS: MIRALAX POWDER (255 GRAMS BTL) PO SCH ×2 (08:53→08:59)
[2019-10-26] MEDS: PULMICORT NEB TX 0.5 MG NEB SCH ×2 (08:55→21:00)
[2019-10-26] MEDS ORDERED: VITAMIN D (1.25MG) PO SCH (09:00)
[2019-10-26] MEDS ORDERED: NIACIN PO SCH (09:00)
[2019-10-26] MEDS: NIASPAN ER TAB 500 MG PO SCH (09:01)
[2019-10-26] MEDS: XARELTO PO SCH ×2 (09:03→21:12)
[2019-10-26] MEDS: XOPENEX 1.25 MG/3 ML NEBULE NEB SCH ×3 (09:48→21:00)
[2019-10-26] MEDS: MILK OF MAGNESIA PO SCH ×5 (10:26→21:22)
[2019-10-26] MEDS: NS 1/2 1000 ML IV 1,000 ML IV SCH (16:27)
[2019-10-26] MEDS ORDERED: NS 1/2 1000 ML IV 0 ML IV ONE (20:24)
[2019-10-26] MEDS: COZAAR PO SCH (21:12)
[2019-10-26] MEDS: LIPITOR TAB 40 MG PO SCH (21:12)
--- NOTE | 2019-10-26 21:20 | DR.H&P ---
H&P - History & Physical for Day of: H&P Date: 10/25/19 - Chief Complaint Chief Complaint: ABDOMINAL PAIN, BACK PAIN, HYPERTENSION - History of Present Illness History of Present Illness: IS A 84 YEAR OLD PATIENT OF OURS WHO PRESENTED TO THE ER WITH COMPLAINT OF ABDOMINAL PAIN AND LOWER BACK PAIN. PAIN REPORTEDLY STARTED TWO DAYS AGO AND HAS PROGRESSIVELY GOTTEN WORSE. PAIN IS DESCRIBED SHARP, CONSTANT, AND IS RATED A 7/10. SHE HAS A HISTORY OF CVA AND A-FIB FOR WHICH SHE IS CURRENTLY ON XARELTO. ON ARRIVAL, VITALS WERE 97.6-82-20-98%-213/90. LABS WERE OBTAINED. ABNORMAL LAB VALUES INCLUDED THE FOLLOWING: HGB 11.3, HCT 32.9, BUN 23, CREATININE 1.92, GLUCOSE 139, ALBUMIN 3.2, GLOBULIN 4.6. CARDIAC ENZYMES WITHIN NORMAL LIMITS. URINALYSIS IS UNREMARKABLE. A CHEST XRAY WAS OBTAINED AND REVEALED: No acute cardiopulmonary a bnormality. EKG WAS OBTAINED AND REVEALED: SINUS RHYTHM WITH HR 89. AN ABDOMEN/PELVIS CT WITHOUT CONTRAST WAS OBTAINED AND REVEALED: Punctate bilateral nonobstructing renal calculi. Trace right pleural effusion. Extensive vascular plaque with probable high-grade aortic stenosis again demonstrated. Evaluation limited without IV contrast. Additional chronic findings as described. A LEFT FOREARM XRAY WAS OBTAINED DUE TO LEFT FOREARM PAIN AND REVEALED: NO ACUTE OSSEOUS ABNORMALITY. SHE TOOK HER HOME MEDICATIONS OF COREG 6.25MG X 2 TABLETS AND HYDRALAZINE 50MG X 1 TABLET. AT APPROXIMATELY 08:49. B LOOD PRESSURE DECREASED TO 173/91. SHE WAS THEN GIVEN VASOTEC 1.25MG IV X 1 AND LABETALOL 20MG IV X 1. HER BLOOD PRESSURE EVENTUALLY DECREASED TO 148/65. SHE WAS ADMITTED FOR FURTHER EVALUATION AND TREATMENT OF HYPERTENSIVE URGENCY, LEFT PLEURAL EFFUSION, ABDOMINAL PAIN, AND CONSTIPATION. SHE WAS STARTED ON 1/2NS AT KVO, ROCEPHIN 1G IV DAILY, RESPIRATORY TX, A BOWEL REGIMEN, AND HER HOME MEDICATIONS WERE RESUMED. WE WILL OBTAIN SERIAL CARDIAC ENZYMES AND EKGS. OTHERWISE, WE WILL FOLLOW UP WITH AM LABS AND CONTINUE TO MONITOR. - Past Medical History Past Medical History: Hypertension, Dyslipidemia, Diabetes, Depression, Anxiety, Asthma, Kidney Stones - Past Surgical History Surgical History: Cholecystectomy - Family History Family Medical History: Cancer, [place], Hypertension - Social History Does patient currently use any type of tobacco product: No Have you used tobacco products in the last 12 months: No Type of Tobacco Use: None Does any household member use tobacco: Yes Alcohol Use: None Drug Use: None Prescription drug monitoring program results: PDMP was not reviewed - Medications Home Medications: codeine Allergy (Verified 03/20/19 11:20) meperidine [From Demerol] Allergy (Verified 03/20/19 11:20) CONTINUE taking the following medications acyclovir 800 mg PO Q4H 10/25/19 [History] albuterol sulfate 2.5 mg INHALATION TID 10/25/19 [History] aspirin 325 mg PO DAILY 10/25/19 [History] hydralazine 50 mg PO TID PRN 10/25/19 [History] losartan [Cozaar] 50 mg PO DAILY 10/25/19 [History] nitroglycerin 1 patch TRANSDERMAL Q24H 10/25/19 [History] pantoprazole 40 mg PO DAILY 10/25/19 [History] lpqbwftei-xojziq-gjkmfmfj-scop [] 1 tab PO TID PRN 10/25/19 [History] tramadol 50 mg PO TID PRN 10/25/19 [History] - Review of Systems Constitutional: Weakness Eyes: No Symptoms Reported ENT: No Symptoms Reported Respiratory: No Symptoms Reported Cardiovascular: Palpitations Gastrointestinal: Nausea, Abdominal Pain Genitourinary: No Symptoms Reported Musculoskeletal: Back Pain Skin: No Symptoms Reported Neurological: Weakness - Physical Exam Vital Signs: Temperature 98.5 F Pulse Rate [Apical] 58 Pulse Rate [Left Brachial] 103 Pulse Rate 72 Respiratory Rate 15 Blood Pressure [Left Arm] 110/53 Blood Pressure [Right Arm] 217/162 Blood Pressure 225/91 O2 Sat by Pulse Oximetry 99 Oriented: Normal Eyes: Normal Ear: Normal Nose: Normal Throat: Normal Respiratory: Diminished Throughout Cardiovascular: Normal : Normal Auscultation: Bowel Sounds: Normal Palpation: Normal Tenderness: Diffuse, Moderate. negative: Rebound, Guarding, Rigidity Skin: Normal Musculoskeletal: Normal Psychiatric: Normal Mood Description: Calm Affect: Normal Speech Pattern: Clear - Assessment/Plan (1) Hypertensive urgency Status: Acute Plan: ADMIT, IV FLUIDS, CONTINUE HOME MEDS WHICH INCLUDE ANTI-HYPERTENSIVES (2) Abdominal pain Qualifiers: Abdominal location: unspecified location Qualified Code(s): R10.9 - Unspecified abdominal pain Status: Acute Plan: BENTYL, CONTINUE TO MONITOR (3) Pleural effusion Status: Acute Plan: RESPIRATORY [place], IV ROCEPHIN, CONTINUE TO MONITOR (4) Constipation Qualifiers: Constipation type: slow transit constipation Qualified Code(s): K59.01 - Slow transit constipation Status: Acute Plan: MILK OF MAGNESIA, COLACE, MIRALAX, CONTINUE TO MONITOR (5) Nausea & vomiting Qualifiers: Vomiting type: unspecified Vomiting Intractability: non-intractable Qualified Code(s): R11.2 - Nausea with vomiting, unspecified Status: Acute Plan: IV ZOFRAN, CONTINUE TO MONITOR - Allergies Allergies/Adverse Reactions: Allergies Allergy/AdvReac Type Severity Reaction Status Date / Time codeine Allergy Verified 03/20/19 11:20 meperidine [From Demerol] Allergy Verified 03/20/19 11:20
[2019-10-26] MEDS: ROCEPHIN VIAL 1 GRAM 1 G in NS 100 ML IV + SPIKE MINIBAG* 100 ML IV SCH (21:29)
[2019-10-27] MEDS: BENTYL CAP 10 MG PO SCH ×2 (05:08→13:33)
[2019-10-27] MEDS: APRESOLINE TAB 25 MG PO SCH ×2 (05:08→13:33)
[2019-10-27] MEDS: XOPENEX 1.25 MG/3 ML NEBULE NEB SCH ×2 (05:24→14:59)
[2019-10-27 06:26] LABS: BASOPHILS % (AUTO) 1.1 % (0.2-1.0); EOSINOPHILS # (AUTO) 0.2 x10^3/uL (0.0-0.2); HEMATOCRIT 24.3 % (36.0-47.0); HEMOGLOBIN 8.4 g/dL (12.0-16.0); LYMPHOCYTES # (AUTO) 1.5 X10^3/uL (1.3-2.9); LYMPHOCYTES % (AUTO) 33.8 % (21.0-51.0); MEAN CORPUSCULAR HEMOGLOBIN 32.2 pg (27.0-34.0); MEAN CORPUSCULAR HGB CONC 34.4 g/dL (33.0-35.0); MEAN CORPUSCULAR VOLUME 93.5 fL (80.0-100.0); MONOCYTES # (AUTO) 0.6 x10^3/uL (0.3-0.8); MONOCYTES % (AUTO) 14.1 % (0.0-13.0); NEUTROPHILS # (AUTO) 2.1 x10^3/uL (2.2-4.8); PLATELET COUNT 255 X10^3/uL (150.0-450.0); RED CELL DISTRIBUTION WIDTH 14.6 % (11.6-16.5); WHITE BLOOD COUNT 4.4 X10^3/uL (3.6-10.0)
[2019-10-27 06:29] LABS: ALBUMIN 2.2 g/dL (3.4-5.0); CALCIUM 8.9 mg/dL (8.5-10.1); CARBON DIOXIDE 25.1 mmol/L (21-32); COR CA(FOR HYPOALB) 10.3 mg/dL (8.5-10.1); CREATININE 2.46 mg/dL (0.55-1.02); TOTAL PROTEIN 5.3 g/dL (6.4-8.2)
[2019-10-27] MEDS: FOLIC ACID TAB 1 MG PO SCH (08:44)
[2019-10-27] MEDS: XARELTO PO SCH (08:44)
[2019-10-27] MEDS: COREG TAB 12.5 MG PO SCH (08:44)
[2019-10-27] MEDS: PROTONIX TAB 40 MG PO SCH (08:44)
[2019-10-27] MEDS: ACTOS PO SCH (08:44)
[2019-10-27] MEDS: NIASPAN ER TAB 500 MG PO SCH (08:45)
[2019-10-27] MEDS: ELAVIL PO SCH (08:45)
[2019-10-27] MEDS: NITRODUR PATCH 0.4 MG/HR TD SCH (08:45)
[2019-10-27] MEDS: ROCEPHIN VIAL 1 GRAM 1 G in NS 100 ML IV + SPIKE MINIBAG* 100 ML IV SCH (08:45)
[2019-10-27] MEDS: COLACE CAP 100 MG PO SCH (08:45)
[2019-10-27] MEDS: ECOTRIN TAB 325 MG PO SCH (08:45)
[2019-10-27] MEDS: MIRALAX POWDER (255 GRAMS BTL) PO SCH (08:47)
[2019-10-27] MEDS: MILK OF MAGNESIA PO SCH ×3 (08:47→16:16)
[2019-10-27] MEDS: PULMICORT NEB TX 0.5 MG NEB SCH (09:18)
[2019-10-27] MEDS: K-DUR TAB 20 MEQ PO SCH (10:20)
[2019-10-27] MEDS: NS 1/2 1000 ML IV 1,000 ML IV SCH (15:41)
[2019-10-27 17:06] VITALS: BP 134/60
== END 2019-10-27 17:40 | disposition home health service (06) ==
LOC: ER 07:23 → ICU 07:23
PROVIDERS: ADMIT Internal Medicine; ATTEND Internal Medicine
DX: E11.65 Type 2 diabetes mellitus with hyperglycemia; E78.2 Mixed hyperlipidemia; D64.89 Other specified anemias; R94.4 Abnormal results of kidney function studies; I48.91 Unspecified atrial fibrillation; R11.2 Nausea with vomiting, unspecified; I10 Essential (primary) hypertension; R94.31 Abnormal electrocardiogram [ECG] [EKG]; J90 Pleural effusion, not elsewhere classified; K59.01 Slow transit constipation; N20.0 Calculus of kidney; I16.0 Hypertensive urgency; M79.632 Pain in left forearm; M54.5 Low back pain; R10.84 Generalized abdominal pain
CPT/HCPCS: 36415; 71010; 71045; 73090; 74176; 80053; 81001; 82150; 82550; 82553; 83690; 83735; 84484; 85025; 85610; 85730; 93005; 93306; 94640; 96365; 96374; 96375; 99284; A4222; G0378; J0696; J2270; J2405; J3490; J7050; J7626

== ENCOUNTER 2019-12-28 12:23 | Inpatient (IN) ==
[2019-12-28] MEDS ORDERED: NS 1000 ML 1,000 ML ONE (12:45)
--- NOTE | 2019-12-28 12:59 | DR.AMS ---
HPI Time Seen Time Seen by Provider: 12/28/19 12:24 PCP Primary Care Physician: TATI SMITH HPI Comment HPI Comment: PATIENT IS 84YR OLD FEMALE IN ER VIA EMS WITH DECREASE RESPONSIVENESS. PATIENT WOKE UP DRANK HER COFFEE AND FELL WHILE GOING TO THE BATHROOM AND WAS HELP IN HER CHAIR. SINCE THEN, SHE HAS HAD DECREASE RESPONSINESS SINCE. PATIENT RESPONSE TO PAIN AND SCREAM WHEN MOVE. Complaint Cheif Complaint Doctors Comments: DECREASE RESPONSIVENESS, AMS. Chief Complaint:: PT TO ER WITH PER FAMILY, PT PALE AND ONLY RESPONDS TO PAIN , SCEAMS OUT WHEN SHE IS MOVED ,PT'S FAMILY STATES AROUND 0900 THIS AM PT FELL GOING TO THE BATHROOM AND WAS HELPED UP AND PLACED IN HER CHAIR, AND PT HAS HAD < RESPONSIVENESS SINCE THAN , FAMILY STATES SHE GOT UP THIS AM AND DRANK COFFEE AND HAD TOAST ,BR Self Treatment fo Chief Complaint: PTS EYES ARE OPEN , SHE IS ALERT BUT < RESPONSIVENESS, BR Reviewed Nurses Notes Reviewed: Yes Source History Provided: Patient Mode of Arrival Mode of Arrival: Wheelchair Timing Onset of Chief Complaint: 12/28/19 Came On: Suddenly Symptoms: Unchanged Onset of Symptoms Start Date: 12/28/19 Duration Duration: Constant Duration: Hours Quality Quality: Decreased Alertness Severity Severity: Unresponsive Context Recent: None History Of: Diabetes Associated Signs and Symptoms Associated Signs and Symptoms: Unresponsiveness PMH PMH Past Medical History: Yes Past Medical History: Anxiety, Asthma, Depression, Diabetes, Dyslipidemia, Hypertension and Kidney Stones Past Surgical History: Yes Surgical History: Cholecystectomy Family History History of Family Medical Conditions: Yes Family Medical History: Cancer, [place] and Hypertension Social History Does patient currently use any type of tobacco product: No Have you used tobacco products in the last 12 months: No Type of Tobacco Use: None Does any household member use tobacco: No Alcohol Use: None Do you use any recreational Drugs:: No Lives With: Family Lives Where: Home infectious screening In the last 2 months have you had wt loss of >10#?: NO Have you had fever, night sweats or hemotysis?: No Have you traveled outside the country in the last 6 months?: No Isolation: Standard ROS Review of Systems Constitutional: See HPI, Weakness and Fatigue Eyes: See HPI ENTM: See HPI Respiratoy: See HPI and Short of Breath; negative Wheezing Cardiovascular: See HPI Gastrointestinal/Abdominal: See HPI Genitourinary: See HPI Neurological: See HPI and Weakness Musculoskeletal: See HPI Integumentary: See HPI Hematologic/Lymphatic: See HPI Endocrine: See HPI Psychiatric: See HPI PE Vitals Vital Signs: Temp Pulse Resp BP BP Pulse Ox 12/28/19 17:10 95 H 41 H 158/73 100 12/28/19 17:05 91 H 37 H 162/65 100 12/28/19 17:00 95 H 167/76 100 12/28/19 16:55 93 H 171/77 100 12/28/19 16:50 101 H 169/75 100 12/28/19 16:45 99 H 170/77 100 12/28/19 16:40 102 H 164/75 100 12/28/19 16:35 101 H 164/74 100 12/28/19 16:30 100 H 157/72 98 12/28/19 16:25 88 144/66 12/28/19 16:20 89 144/70 12/28/19 16:15 87 155/64 12/28/19 16:10 85 155/70 12/28/19 16:05 86 57 H 160/67 12/28/19 16:00 87 53 H 144/95 12/28/19 15:56 88 62 H 154/70 12/28/19 15:50 98 H 40 H 148/62 80 L 12/28/19 15:45 87 61 H 130/63 80 L 12/28/19 15:40 84 30 H 147/65 12/28/19 15:35 86 74 H 172/67 12/28/19 15:30 87 54 H 164/70 12/28/19 15:25 87 54 H 170/72 12/28/19 15:20 89 155/67 12/28/19 15:15 94 H 33 H 154/60 12/28/19 15:10 87 38 H 156/69 12/28/19 15:05 87 48 H 173/75 12/28/19 15:00 86 46 H 12/28/19 14:55 85 149/69 12/28/19 14:50 98 H 154/68 100 12/28/19 14:45 88 161/71 100 12/28/19 14:40 91 H 40 H 146/67 100 12/28/19 14:35 93 H 49 H 149/70 83 L 12/28/19 14:30 90 136/62 12/28/19 14:25 90 135/65 80 L 12/28/19 14:20 88 151/69 100 12/28/19 14:15 87 132/62 99 12/28/19 14:10 85 140/66 100 12/28/19 14:05 131 H 46 H 138/61 100 12/28/19 14:00 134 H 31 H 135/76 12/28/19 13:50 127 H 44 H 99/64 12/28/19 13:45 132 H 35 H 128/63 12/28/19 13:40 129 H 38 H 130/70 12/28/19 13:30 116/64 12/28/19 13:25 126 H 37 H 101/49 12/28/19 13:20 127 H 50 H 122/57 12/28/19 13:15 128 H 41 H 123/60 12/28/19 13:11 131 H 45 H 117/53 80 L 12/28/19 13:05 126 H 68 H 110/51 12/28/19 13:01 122 H 43 H 118/56 12/28/19 13:00 135 H 42 H 12/28/19 12:45 134 H 38 H 12/28/19 12:35 128 H 46 H 96 12/28/19 12:31 96.6 F L 137 H 20 124/77 99 11/04/19 09:33 197/83 General Limitations: Altered Mental Status General Appearance: Other (UNRESPOSIVE) Head Head Exam: Atraumatic Head Exam Physical: Other (NONE SEEN.) Eyes Eye exam: PERRL (PUPILS EQUAL AND RESPONSIVE.); negative Scleral Icterus and Conjunctival Injection Pupils: Regular, Round: Bilateral and Reactive: Bilateral ENT ENT Exam: Normal Oropharynx, Normal External Ear Exam and TM's Normal Bilaterally TM/Canal Exam: Bilateral: Normal Nose Exam: negative Sinus Tenderness, Nasal Deviation and Septal Hematoma Mouth Exam: negative Lip Swelling and Tongue Swelling Throat Exam: negative Tonsillar Erythema, Tonsillomegaly and Tonsillar Exudate Neck Neck Exam: Trachea Midline; negative Tenderness and Lymphadenopathy Chest Chest Inspection: Symmetric Chest Wall Rise; negative Tenderness Respiratory Respiratory Exam: negative Accessory Muscle Use, Chest Wall Tenderness and Respiratory Distress Respiratory Exam: Bilateral: Rhonchi and Lower: Rhonchi Cardiovascular Cardiovascular Exam: Tachycardia, Irregular Rhythm and Normal Heart Sounds Abdominal Exam Abdominal Exam: Normal Bowel Sounds and Soft; negative Tenderness Back Back Exam: Paraspinal Tenderness Neurological Neurological Exam: Other (UNRESPONSIVE.) Patient Oriented To: negative Person, Place and Time Speech: negative Fluid Speech Cranial Nerve Exam: Gag reflex (XI): Normal Upper Motor Neuron Exam: Babinski Sign: Normal Psychological Psychiatric Exam: Other (UNRESPONSIVE) Expanded Psychiatric Exam: Other Skin Skin Exam: Dry MDM Differential Diagnosis Metabolic: Dehydration, Hypercalcemia, Hypernatremia, Hypoglycemia, Hyponatremia and Hypoxemia Structural: CVA and Mass Lesion Infectious: Sepsis and UTI COURSE Treatment Treatment: SEE ORDERS. Education/Counseling Education/Counseling: Patient Educated On: Diagnosis ROR Labs Reviewed Laboratory Results Reviewed?: Yes Result Diagrams: 01/08/20 04:01 01/08/20 04:01 Laboratory: 12/28/19 13:00 Blood Blood Culture - Final 12/28/19 13:39 Blood Blood Culture - Final WBC 12.5 X10^3/uL (3.6-10.0) H 12/28/19 13:00 RBC 3.92 X10^6/uL (3.5-5.4) 12/28/19 13:00 Hgb 12.3 g/dL (12.0-16.0) 12/28/19 13:00 Hct 35.5 % (36.0-47.0) L 12/28/19 13:00 MCV 90.6 fL (80.0-100.0) 12/28/19 13:00 MCH 31.4 pg (27.0-34.0) 12/28/19 13:00 MCHC 34.7 g/dL (33.0-35.0) 12/28/19 13:00 RDW 13.9 % (11.6-16.5) 12/28/19 13:00 Plt Count 321 X10^3/uL (150.0-450.0) 12/28/19 13:00 MPV 7.5 fL (7.4-11.0) 12/28/19 13:00 Neut % (Auto) 79.2 % (42.0-75.0) H 12/28/19 13:00 Lymph % (Auto) 13.5 % (21.0-51.0) L 12/28/19 13:00 [place] % (Auto) 6.7 % (0.0-13.0) 12/28/19 13:00 Eos % (Auto) 0.2 % (0.9-2.9) L 12/28/19 13:00 Baso % (Auto) 0.4 % (0.2-1.0) 12/28/19 13:00 Neut # (Auto) 9.9 x10^3/uL (2.2-4.8) H 12/28/19 13:00 Lymph # (Auto) 1.7 X10^3/uL (1.3-2.9) 12/28/19 13:00 [place] # (Auto) 0.8 x10^3/uL (0.3-0.8) 12/28/19 13:00 Eos # (Auto) 0.0 x10^3/uL (0.0-0.2) 12/28/19 13:00 Baso # (Auto) 0.0 X10^3/uL (0.0-0.1) 12/28/19 13:00 Absolute Nucleated RBC 0.1 /100WBC 12/28/19 13:00 Sodium 136 mmol/L (136-145) 12/28/19 13:00 Corrected Sodium 139 mmol/L (136-145) 12/28/19 13:00 Potassium 4.2 mmol/L (3.5-5.1) 12/28/19 13:00 Chloride 99 mmol/L (98-107) 12/28/19 13:00 Carbon Dioxide 22.7 mmol/L (21-32) 12/28/19 13:00 BUN 33 mg/dL (7-18) H 12/28/19 13:00 Creatinine 2.48 mg/dL (0.55-1.02) H 12/28/19 13:00 Est GFR (MDRD) Af Amer 24 (>60) L 12/28/19 13:00 Est GFR (MDRD) Non-Af 20 (>60) L 12/28/19 13:00 Glucose 215 mg/dL (65-99) H 12/28/19 13:00 Lactic Acid 4.8 mmol/L (0.4-2.0) H 12/28/19 13:39 Calcium 10.3 mg/dL (8.5-10.1) H 12/28/19 13:00 Corrected Calcium 11.0 mg/dL (8.5-10.1) H 12/28/19 13:00 Magnesium 1.9 mg/dL (1.7-2.9) 12/28/19 13:00 Total Bilirubin 0.50 mg/dL (0.2-1.0) 12/28/19 13:00 AST 15 Units/L (15-37) 12/28/19 13:00 ALT 15 Units/L (12-78) 12/28/19 13:00 Alkaline Phosphatase 53 Units/L (46-116) 12/28/19 13:00 Creatine Kinase 55 Units/L (26-192) 12/28/19 13:00 CK-MB (CK-2) < 1.0 ng/mL (0-4.0) 12/28/19 13:00 CK/CKMB % Calc 1.8 % (<4) 12/28/19 13:00 Troponin I 0.06 ng/mL (0-1.5) 12/28/19 13:00 Total Protein 7.3 g/dL (6.4-8.2) 12/28/19 13:00 Albumin 3.1 g/dL (3.4-5.0) L 12/28/19 13:00 Globulin 4.2 g/dL (2.5-4.5) 12/28/19 13:00 Albumin/Globulin Ratio 0.7 Ratio (1.1-2.1) L 12/28/19 13:00 Specimen Type Catherized urine 12/28/19 14:08 Urine Color Yellow (YELLOW) 12/28/19 14:08 Urine Appearance Slightly hazy (CLEAR) 12/28/19 14:08 Urine pH 6.5 (5.0 - 8.0) 12/28/19 14:08 Ur Specific [place] 1.015 (1.000-1.030) 12/28/19 14:08 Urine Protein 4+ (NEGATIVE) 12/28/19 14:08 Urine Glucose (UA) 1+ (NEGATIVE) 12/28/19 14:08 Urine Ketones Negative (NEGATIVE) 12/28/19 14:08 Urine Occult Blood 1+ (NEGATIVE) 12/28/19 14:08 Urine Nitrite Negative (NEGATIVE) 12/28/19 14:08 Urine Bilirubin Negative (NEGATIVE) 12/28/19 14:08 Urine Urobilinogen Normal (NORMAL) 12/28/19 14:08 Ur Leukocyte Esterase Negative (NEGATIVE) 12/28/19 14:08 Urine RBC 0-2 /HPF (0-3) 12/28/19 14:08 Urine WBC 0-2 /HPF (0-5) 12/28/19 14:08 Ur Squamous Epith Cells Few /HPF (NEGATIVE) 12/28/19 14:08 Urine Bacteria Trace /HPF (NEGATIVE) 12/28/19 14:08 Coarse Granular Casts Few /HPF (NEGATIVE) 12/28/19 14:08 Ur Culture Indicated? No/not indicated 12/28/19 14:08 XRAY XRAY Interpreted by: Radiologist (REPORT NOTED.) EKG Rate: 132 [place]: Normal Rhythm: Afib (WITH RVR) Block: None Hypertrophy: LVH ST: Nonsp Opioid Opioid Risk Tool Age (Pasha box if 16-45): No History of Preadolescent Sexual Abuse: No Total: 0 Total Score Risk Category: Low Risk Copyright: Walter MARTINEZ predicting aberrant behaviors Diagnosis Discharge Problem: Atrial fibrillation with RVR, Generalized weakness AMS (altered mental status) Qualifiers: Altered mental status type: transient alteration of awareness Qualified Code(s): R40.4 - Transient alteration of awareness Hypertension Qualifiers: Hypertension type: essential hypertension Qualified Code(s): I10 - Essential (primary) hypertension Instructions Instructions: Hypokalemia Hyperglycemia, [id number] Type 2 Diabetes Mellitus, Self Care, Adult, [id number] Acute Kidney Injury, Adult Pleural Effusion Atrial Fibrillation Hypertension Forms: Patient Portal
[2019-12-28 13:11] LABS: BASOPHILS % (AUTO) 0.4 % (0.2-1.0); EOSINOPHILS % (AUTO) 0.2 % (0.9-2.9); HEMATOCRIT 35.5 % (36.0-47.0); HEMOGLOBIN 12.3 g/dL (12.0-16.0); LYMPHOCYTES # (AUTO) 1.7 X10^3/uL (1.3-2.9); LYMPHOCYTES % (AUTO) 13.5 % (21.0-51.0); MEAN CORPUSCULAR HEMOGLOBIN 31.4 pg (27.0-34.0); MEAN CORPUSCULAR HGB CONC 34.7 g/dL (33.0-35.0); MEAN CORPUSCULAR VOLUME 90.6 fL (80.0-100.0); MEAN PLATELET VOLUME 7.5 fL (7.4-11.0); MONOCYTES # (AUTO) 0.8 x10^3/uL (0.3-0.8); MONOCYTES % (AUTO) 6.7 % (0.0-13.0); NEUTROPHILS # (AUTO) 9.9 x10^3/uL (2.2-4.8); NEUTROPHILS % (AUTO) 79.2 % (42.0-75.0); PLATELET COUNT 321 X10^3/uL (150.0-450.0); RED BLOOD COUNT 3.92 X10^6/uL (3.5-5.4); RED CELL DISTRIBUTION WIDTH 13.9 % (11.6-16.5); WHITE BLOOD COUNT 12.5 X10^3/uL (3.6-10.0)
--- NOTE | 2019-12-28 13:21 | RAD ---
HISTORYAMSSTUDYCHEST, 1 VIEW, done [id number]/2020.FINDINGSThe trachea is midline. The cardiac silhouette is unremarkable. Stable increased interstitial markings are present bilaterally without CHF, infiltrate or pleural fluid. No pneumothorax is seen. Osseous structures are intact..IMPRESSIONStable increased interstitial markings bilaterally.No acute cardiopulmonary disease.Electronically signed by: JIMENA LANE (Dec 28, 2019 13:20:44)
--- NOTE | 2019-12-28 13:21 | CT ---
HISTORYAMS, FALLSTUDYBRAIN W/O CONCOMPARISONNovember 2018TECHNIQUESerial axial images were obtained from the skull base to the vertex without infusion of IV contrast. Coronal and sagittal images were also submitted. Dose reduction techniques including Automated Exposure Control (AEC) and adjustment of mA and kV were utilized.FINDINGSNo definite evidence of acute intracranial hemorrhage or mass is identified. The ventricles, sulci, and cisterns demonstrate an appearance consistent with a mild degree of generalized and cortical atrophy. Patchy areas of decreased attenuation within the periventricular, subcortical, and subinsular white matter suggest changes of chronic small vessel ischemic disease.. No evidence of significant midline shift is identified. No definite abnormal extra axial fluid collections are appreciated. The visualized paranasal sinuses are grossly unremarkable. If symptoms or clinical concerns persist recommend continued follow up for further evaluation.IMPRESSIONNo CT evidence of acute intracranial abnormality is appreciated.Mild generalized cortical atrophy with findings consistent with changes of chronic small vessel ischemic disease.Electronically signed by: NELLY MALAGON (Dec 28, 2019 13:20:31)
[2019-12-28 13:28] LABS: BLOOD UREA NITROGEN 33 mg/dL (7-18); CALCIUM 10.3 mg/dL (8.5-10.1); CARBON DIOXIDE 22.7 mmol/L (21-32); CHLORIDE 99 mmol/L (98-107); COR NA(FOR HYPERGLY) 139 mmol/L (136-145); CREATININE 2.48 mg/dL (0.55-1.02); SODIUM 136 mmol/L (136-145); TROPONIN I 0.06 ng/mL (0-1.5); eGFR NON BLACK RACES 20 (>60)
[2019-12-28 13:32] LABS: ALANINE AMINOTRANSFERASE 15 Units/L (12-78); ALBUMIN 3.1 g/dL (3.4-5.0); ALKALINE PHOSPHATASE 53 Units/L (46-116); ASPARTATE AMINO TRANSFERASE 15 Units/L (15-37); CKMB % 1.8 % (<4); CREATINE KINASE 55 Units/L (26-192); CREATINE KINASE MB < 1.0 ng/mL (0-4.0); TOTAL PROTEIN 7.3 g/dL (6.4-8.2)
[2019-12-28] MEDS ORDERED: CARDIZEM INJ 50 MG VIAL ONE (13:35)
[2019-12-28] MEDS ORDERED: CARDIZEM INJ 50 MG VIAL IVP ONE (14:00)
[2019-12-28 14:16] LABS: BILIRUBIN,URINE NEGATIVE (NEGATIVE); BLOOD/HEMOGLOBIN,URINE 1+ (NEGATIVE); GLUCOSE, URINE 1+ (NEGATIVE); KETONES,URINE NEGATIVE (NEGATIVE); LEUKOCYTE ESTERASE ,URINE NEGATIVE (NEGATIVE); NITRITES,URINE NEGATIVE (NEGATIVE); PH,URINE 6.5 (5.0 - 8.0); PROTEIN,URINE 4+ (NEGATIVE); UROBILINOGEN,URINE NORMAL (NORMAL)
[2019-12-28 14:31] LABS: APPEARANCE,URINE SLIGHTLY HAZY (CLEAR); BACTERIA,URINE TRACE /HPF (NEGATIVE); COLOR,URINE YELLOW (YELLOW); RBC,URINE 0-2 /HPF (0-3); SQUAMOUS EPITHELIAL CELL,UR FEW /HPF (NEGATIVE)
[2019-12-28 14:32] LABS: COARSE GRANULAR CASTS,URINE FEW /HPF (NEGATIVE)
[2019-12-28] MEDS ORDERED: ZOSYN VIAL 3.375 GRAMS 3.375 G in NS 100 ML IV + SPIKE MINIBAG* 100 ML IV ONE (15:51)
[2019-12-28] MEDS ORDERED: ZOSYN VIAL 4.5 GRAMS IV ONE (16:14)
[2019-12-28] MEDS ORDERED: NS 100 ML IV + SPIKE MINIBAG* 100 ML IV ONE (16:14)
[2019-12-28] MEDS ORDERED: NS 100 ML IV 100 ML IV ONE (17:11)
[2019-12-28] MEDS ORDERED: CARDIZEM INJ 125 MG VIAL ONE (17:12)
[2019-12-28] MEDS ORDERED: CARDIZEM INJ 125 MG VIAL 125 MG in NS 100 ML IV 100 ML IV PRN (17:42)
[2019-12-28] MEDS ORDERED: NS 1000 ML 1,000 ML IV ONE (17:55)
[2019-12-28] MEDS: ZOSYN VIAL 2.25 GRAMS 2.25 G in NS 100 ML IV + SPIKE MINIBAG* 100 ML IV SCH ×2 (18:38→21:50)
[2019-12-28] MEDS ORDERED: DONNATAL TAB PO PRN (18:48)
[2019-12-28] MEDS ORDERED: APRESOLINE TAB 25 MG PO PRN (18:48)
[2019-12-28] MEDS ORDERED: BENTYL CAP 10 MG PO PRN (18:48)
[2019-12-28 19:57] LABS: CKMB % 1.2 % (<4); CREATINE KINASE 83 Units/L (26-192); CREATINE KINASE MB < 1.0 ng/mL (0-4.0); TROPONIN I 0.06 ng/mL (0-1.5)
[2019-12-28] MEDS: COLACE CAP 100 MG PO SCH (20:43)
[2019-12-28] MEDS: LIPITOR TAB 40 MG PO SCH (20:45)
[2019-12-28] MEDS: COREG TAB 12.5 MG PO SCH (20:45)
[2019-12-28] MEDS: FORTAZ or TAZICEF VIAL INJ 1 G in NS 100 ML IV + SPIKE MINIBAG* 100 ML IV SCH ×2 (20:47→21:50)
[2019-12-28] MEDS ORDERED: NIFEDIPINE 30 MG PO SCH (21:00)
[2019-12-28] MEDS: PATIENT'S HOME MEDICATION (Budesonide-Formoterol 2 PUFF) IN SCH (21:50)
[2019-12-28] MEDS: PROVENTIL NEB TX 0.083% 2.5MG/ 3ML NEB PRN (21:50)
[2019-12-28] MEDS: NS 1000 ML 1,000 ML IV SCH (21:50)
[2019-12-28] MEDS: PULMICORT NEB TX 0.5 MG NEB SCH (21:50)
[2019-12-28] MEDS ORDERED: ALBUTEROL SULFATE 2.5 MG IN SCH (22:00)
[2019-12-29 00:14] LABS: BILIRUBIN,URINE NEGATIVE (NEGATIVE); BLOOD/HEMOGLOBIN,URINE 2+ (NEGATIVE); GLUCOSE, URINE 1+ (NEGATIVE); KETONES,URINE 2+ (NEGATIVE); LEUKOCYTE ESTERASE ,URINE 3+ (NEGATIVE); NITRITES,URINE NEGATIVE (NEGATIVE); PROTEIN,URINE 4+ (NEGATIVE); UROBILINOGEN,URINE NORMAL (NORMAL)
[2019-12-29 00:20] LABS: APPEARANCE,URINE CLOUDY (CLEAR); BACTERIA,URINE TRACE /HPF (NEGATIVE); COLOR,URINE YELLOW (YELLOW); RBC,URINE 0-2 /HPF (0-3); SQUAMOUS EPITHELIAL CELL,UR RARE /HPF (NEGATIVE)
[2019-12-29 01:00] VITALS: BMI 17.2
[2019-12-29 05:49] LABS: BASOPHILS % (AUTO) 0.1 % (0.2-1.0); HEMATOCRIT 24.1 % (36.0-47.0); LYMPHOCYTES # (AUTO) 1.2 X10^3/uL (1.3-2.9); LYMPHOCYTES % (AUTO) 10.9 % (21.0-51.0); MEAN CORPUSCULAR HEMOGLOBIN 32.3 pg (27.0-34.0); MEAN CORPUSCULAR HGB CONC 35.1 g/dL (33.0-35.0); MEAN PLATELET VOLUME 8.1 fL (7.4-11.0); MONOCYTES # (AUTO) 1.2 x10^3/uL (0.3-0.8); MONOCYTES % (AUTO) 10.8 % (0.0-13.0); NEUTROPHILS # (AUTO) 8.4 x10^3/uL (2.2-4.8); NEUTROPHILS % (AUTO) 78.2 % (42.0-75.0); PLATELET COUNT 224 X10^3/uL (150.0-450.0); RED BLOOD COUNT 2.62 X10^6/uL (3.5-5.4); RED CELL DISTRIBUTION WIDTH 13.9 % (11.6-16.5); WHITE BLOOD COUNT 10.8 X10^3/uL (3.6-10.0)
[2019-12-29] MEDS: FORTAZ or TAZICEF VIAL INJ 1 G in NS 100 ML IV + SPIKE MINIBAG* 100 ML IV SCH (05:59)
[2019-12-29] MEDS: NS 1000 ML 1,000 ML IV SCH ×5 (05:59→21:14)
[2019-12-29 06:12] LABS: ALANINE AMINOTRANSFERASE 15 Units/L (12-78); ALBUMIN 2.3 g/dL (3.4-5.0); ALKALINE PHOSPHATASE 31 Units/L (46-116); ASPARTATE AMINO TRANSFERASE 14 Units/L (15-37); BLOOD UREA NITROGEN 33 mg/dL (7-18); CALCIUM 8.6 mg/dL (8.5-10.1); CHLORIDE 107 mmol/L (98-107); CKMB % 0.6 % (<4); COR NA(FOR HYPERGLY) 143 mmol/L (136-145); CREATINE KINASE 157 Units/L (26-192); CREATINE KINASE MB < 1.0 ng/mL (0-4.0); CREATININE 2.73 mg/dL (0.55-1.02); SODIUM 141 mmol/L (136-145); TOTAL PROTEIN 5.6 g/dL (6.4-8.2); eGFR NON BLACK RACES 18 (>60)
[2019-12-29] MEDS: ZOSYN VIAL 2.25 GRAMS 2.25 G in NS 100 ML IV + SPIKE MINIBAG* 100 ML IV SCH ×3 (06:13→21:15)
[2019-12-29 06:29] LABS: HEMOGLOBIN 8.5 g/dL (12.0-16.0)
[2019-12-29] MEDS ORDERED: K-RIDER 10 MEQ/NS 100 ML 10 MEQ/100 ML BAG IV PRN (06:48)
[2019-12-29] MEDS ORDERED: POTASSIUM CHL 60 MEQ/NS 0.45% 500 ML IV PRN (06:48)
[2019-12-29] MEDS ORDERED: POTASSIUM CHL 40 MEQ/NS 0.45% 500 ML IV PRN (06:48)
[2019-12-29] MEDS ORDERED: KLOR-CON PO PRN (06:48)
[2019-12-29] MEDS ORDERED: POTASSIUM CHLORIDE LIQ 20 MEQ UDC PO PRN (06:48)
[2019-12-29] MEDS ORDERED: MICRO K EXTEN CAP 10 MEQ PO PRN (06:48)
[2019-12-29] MEDS: PULMICORT NEB TX 0.5 MG NEB SCH ×2 (08:19→20:15)
[2019-12-29] MEDS ORDERED: PROCARDIA XL PO SCH (09:00)
[2019-12-29] MEDS: COLACE CAP 100 MG PO SCH ×2 (09:28→21:13)
[2019-12-29] MEDS: COREG TAB 12.5 MG PO SCH ×2 (09:28→21:14)
[2019-12-29] MEDS: ELAVIL PO SCH (09:29)
[2019-12-29] MEDS: ECOTRIN TAB 325 MG PO SCH ×2 (09:29→21:16)
[2019-12-29] MEDS ORDERED: NS 100 ML IV 100 ML IV ONE (15:38)
--- NOTE | 2019-12-29 17:04 | DR.H&P ---
H&P - History & Physical for Day of: H&P Date: 12/28/19 - Chief Complaint Chief Complaint: DECREASED RESPONSIVENESS, PALLOR, FALL - History of Present Illness History of Present Illness: IS A 84 YEAR OLD PATIENT OF OURS WHO PRESENTED TO THE ER WITH COMPLAINTS OF FALLS, DECREASED RESPONSIVENESS, AND PALLOR. PATIENTS FAMILY REPORTS THAT SHE WAS UP DRINKING COFFEE IN HER NORMAL STATE A FEW HOURS PRIOR TO ARRIVAL. PATIENT IS ONLY RESPONSIVE TO PAINFUL STIMULI ON ARRIVAL TO THE ER. HER VITALS WERE 96.6-137-20-99%-124/77. LABS WERE OBTAINED. ABNORMAL LAB VALUES INCLUDE THE FOLLOWING: WBC 12.5, HCT 35.5, BUN 33, CREATININE 2.48, GLUCOSE 215, LACTIC ACID 4.8, CALCIUM 10.3, ALBUMIN 3.1. CARDIAC ENZYMES WITHIN NORMAL LIMITS. A URINALYSIS WAS OBTAINED AND REVEALED: WBC 10-20, RBC 0-2, BACTERIA TRACE, LEUKOCYTES 3+. URINE AND BLOOD CULTURES WERE SET UP. A BRAIN CT WAS OBTAINED AND REVEALED: No CT evidence of acute intracranial abnormality is appreciated. Mild generalized cortical atrophy with findings consistent with changes of chronic small vessel ischemic disease. EKG REVEALED: ATRIAL FIBRILLATION WITH HR 132. A CHEST XRAY WAS OBTAINED AND REVEALED: Stable increased interstitial markings bilaterally. No acute cardiopulmonary disease. SHE WAS GIVEN ZOSYN 3.375G IV X 1 DOSE AND STARTED ON A CARDIZEM DRIP. HR DECREASED TO THE 80s. SHE WAS ADMITTED FOR FURTHER EVALUATION AND TREATMENT OF NEW ONSET A-FIB WITH RVR, UROSEPSIS, AND AMS. SHE WAS STARTED ON ZOSYN 2.25G IV TID, THE POTASSIUM AND MAGNESIUM PROTOCOLS, AND HER HOME MEDICATIONS WERE RESUMED. ON MORNING ROUNDS, PATIENT CONTINUED TO ONLY BE RESPONSIVE TO PAINFUL STIMULI. HER HR HAS DROPPED TO THE 50s AND SHE IS NOW HYPOTENSIVE, WITH BLOOD PRESSURE NOTED TO BE 107/53. WE WILL DISCONTINUE THE CARDIZEM DRIP TODAY AND HOLD HER BLOOD PRESSURE MEDICATIONS. OTHERWISE, WE WILL FOLLOW UP WITH AM LABS AND CONTINUE TO MONITOR. - Past Medical History Past Medical History: Hypertension, Dyslipidemia, Diabetes, Depression, Anxiety, Asthma, Kidney Stones - Past Surgical History Surgical History: Cholecystectomy, Hysterectomy, Lithotripsy - Family History Family Medical History: Cancer, [place], Hypertension - Social History Does patient currently use any type of tobacco product: No Have you used tobacco products in the last 12 months: No Type of Tobacco Use: None Does any household member use tobacco: No Alcohol Use: None Drug Use: None Prescription drug monitoring program results: PDMP was not reviewed - Medications Home Medications: codeine Allergy (Verified 03/20/19 11:20) meperidine [From Demerol] Allergy (Verified 03/20/19 11:20) CONTINUE taking the following medications ergocalciferol (vitamin D2) [Drisdol] 50,000 unit PO WEEKLY 12/28/19 [History] furosemide [Lasix] 20 mg PO DAILY PRN 12/28/19 [History] niacin [Niaspan Extended-Release] 500 mg PO DAILY 12/28/19 [History] nifedipine 30 mg PO BID 12/28/19 [History] - Review of Systems Constitutional: See HPI, Weakness Eyes: No Symptoms Reported ENT: No Symptoms Reported Respiratory: No Symptoms Reported Cardiovascular: No Symptoms Reported Gastrointestinal: No Symptoms Reported Genitourinary: No Symptoms Reported Musculoskeletal: No Symptoms Reported Skin: See HPI Neurological: See HPI, Weakness, Other (LETHARGIC ) - Physical Exam Vital Signs: Temperature 98.2 F Pulse Rate 50 Respiratory Rate 12 Blood Pressure [Left Arm] 197/83 Blood Pressure 107/53 O2 Sat by Pulse Oximetry 100 Oriented: Unable to test Eyes: Normal Ear: Normal Nose: Normal Throat: Normal Respiratory: Diminished Throughout Cardiovascular: Tachycardia, Irregular. negative: S3, S4, Murmur : Normal Auscultation: Bowel Sounds: Normal Palpation: Normal Tenderness: Normal Skin: Normal Musculoskeletal: Normal Psychiatric: Other Speech Pattern: Unclear - Assessment/Plan (1) New onset a-fib Status: Acute (2) Sepsis Qualifiers: Sepsis type: sepsis due to unspecified organism Sepsis acute organ dysfunction status: unspecified Qualified Code(s): A41.9 - Sepsis, unspecified organism Status: Acute (3) Urinary tract infection Qualifiers: Urinary tract infection type: acute cystitis Hematuria presence: without hematuria Qualified Code(s): N30.00 - Acute cystitis without hematuria Status: Acute (4) Altered mental status Qualifiers: Altered mental status type: transient alteration of awareness Status: Acute - Allergies Allergies/Adverse Reactions: Allergies Allergy/AdvReac Type Severity Reaction Status Date / Time codeine Allergy Verified 03/20/19 11:20 meperidine [From Demerol] Allergy Verified 03/20/19 11:20
[2019-12-29] MEDS: PROVENTIL NEB TX 0.083% 2.5MG/ 3ML NEB SCH (20:15)
[2019-12-29] MEDS: LIPITOR TAB 40 MG PO SCH (21:14)
[2019-12-30 05:35] LABS: BASOPHILS % (AUTO) 0.3 % (0.2-1.0); EOSINOPHILS # (AUTO) 0.2 x10^3/uL (0.0-0.2); EOSINOPHILS % (AUTO) 2.9 % (0.9-2.9); HEMATOCRIT 21.3 % (36.0-47.0); HEMOGLOBIN 7.5 g/dL (12.0-16.0); LYMPHOCYTES # (AUTO) 1.7 X10^3/uL (1.3-2.9); MEAN CORPUSCULAR HEMOGLOBIN 32.6 pg (27.0-34.0); MEAN CORPUSCULAR HGB CONC 35.1 g/dL (33.0-35.0); MEAN CORPUSCULAR VOLUME 92.9 fL (80.0-100.0); MEAN PLATELET VOLUME 7.9 fL (7.4-11.0); MONOCYTES # (AUTO) 0.8 x10^3/uL (0.3-0.8); MONOCYTES % (AUTO) 9.1 % (0.0-13.0); NEUTROPHILS # (AUTO) 5.6 x10^3/uL (2.2-4.8); NEUTROPHILS % (AUTO) 67.7 % (42.0-75.0); PLATELET COUNT 164 X10^3/uL (150.0-450.0); RED CELL DISTRIBUTION WIDTH 14.2 % (11.6-16.5); WHITE BLOOD COUNT 8.3 X10^3/uL (3.6-10.0)
[2019-12-30] MEDS: ZOSYN VIAL 2.25 GRAMS 2.25 G in NS 100 ML IV + SPIKE MINIBAG* 100 ML IV SCH ×3 (05:44→21:07)
[2019-12-30] MEDS: PROVENTIL NEB TX 0.083% 2.5MG/ 3ML NEB SCH ×4 (06:01→20:08)
[2019-12-30 06:22] LABS: PLATELET MORPHOLOGY COMMENT NORMAL (NORMAL)
[2019-12-30 06:23] LABS: CALCIUM 8.2 mg/dL (8.5-10.1); CARBON DIOXIDE 21.6 mmol/L (21-32); COR CA(FOR HYPOALB) 9.8 mg/dL (8.5-10.1); CREATININE 3.27 mg/dL (0.55-1.02); TOTAL PROTEIN 5.2 g/dL (6.4-8.2)
[2019-12-30] MEDS: PATIENT'S HOME MEDICATION (Budesonide-Formoterol 2 PUFF) IN SCH (08:15)
[2019-12-30] MEDS: PULMICORT NEB TX 0.5 MG NEB SCH ×2 (08:15→20:07)
[2019-12-30] MEDS ORDERED: XARELTO PO SCH (09:00)
[2019-12-30] MEDS ORDERED: NS 500 ML IV 500 ML IV ONE (09:30)
[2019-12-30] MEDS ORDERED: VITAMIN D (1.25MG) PO SCH (09:45)
--- NOTE | 2019-12-30 09:52 | PCM.PROG ---
Progress Note - Progress Note for Day of Date of Exam: 12/30/19 - Subjective Subjective: WAS ADMITTED FOR NEW ONSET A-FIB WITH RVR, UROSEPSIS, AND ALTERED MENTAL STATUS. SHE WAS ADMITTED ON A CARDIZEM DRIP, HOWEVER, CARDIZEM DRIP WAS DISCONTINUED YESTERDAY DUE TO BRADYCARDIA AND HYPOTENSION. TODAY, SHE IS ALERT AND ORIENTED, LYING IN BED ON MORNING ROUNDS. SHE REPORTS WEAKNESS. ON EXAMINATION, SHE CONTINUES TO BE BRADYCARDIC, BUT WITHOUT ATRIAL FIBRILLATION. HER LUNGS ARE NOTED WITH DIMINISHED LUNG SOUNDS THROUGHOUT. ABDOMEN IS FLAT, SOFT, AND NON-TENDER. NORMAL BOWEL SOUNDS ARE NOTED IN ALL QUADRANTS. HER VITALS THIS MORNING ARE: 98.7-59-20-100%-175/76. LABS WERE OBTAINED. ABNORMAL LAB VALUES INCLUDE THE FOLLOWING: RBC 2.30, HGB 7.5, HCT 21.3, POTASSIUM 3.2, CH LORIDE 109, BUN 39, CREATININE 3.27, GLUCOSE 115, CALCIUM 8.2, ALK PHOS 25, TOTAL PROTEIN 5.2, ALBUMIN 2.0. URINE AND BLOOD CULTURES ARE PENDING. MOST RECENT EKG REVEALS SINUS RHYTHM WITH HR 50. TODAY, WE WILL HOLD HER COREG, XARELTO, AND ASPIRIN. WE WILL RESTART HYDRALAZINE 50MG PO TID, NIFEDIPINE 60MG PO DAILY, HEMOCCULT STOOLS, OBTAIN A RENAL ULTRASOUND, BOLUS 500ML X 1 DOSE, AND MONITOR H&H. IF HEMOGLOBIN FALLS BELOW 7, WE WILL TRANSFUSE WITH 2 UNITS PRBC. OTHERWISE, WE WILL FOLLOW UP WITH AM LABS AND CONTINUE TO MONITOR. - Past Medical Family Social History Allergies: Allergies codeine Allergy (Verified 03/20/19 11:20) meperidine [From Demerol] Allergy (Verified 03/20/19 11:20) - Vital Signs and I&O's Vital Signs: Temperature 98.8 F Pulse Rate 60 Respiratory Rate 13 Blood Pressure [Left Arm] 197/83 Blood Pressure 186/102 O2 Sat by Pulse Oximetry 100 Intake and Output: Intake & Output 12/27/19 12/28/19 12/29/19 12/30/19 11:59 11:59 11:59 11:59 Intake Total 1265 / 1265 2753 / 2753 Output Total 350 / 350 625 / 625 Balance 915 / 915 2127 / 2127 - Physical Exam Oriented: Normal Eyes: Normal Ear: Normal Nose: Normal Throat: Normal Respiratory: Generalized, Diminished Cardiovascular: Normal, Bradycardia. negative: S3, S4, Murmur : Normal Auscultation: Bowel Sounds: Normal Palpation: Normal Tenderness: Normal Skin: Normal Musculoskeletal: Normal Psychiatric: Normal Mood Description: Calm Affect: Normal Speech Pattern: Clear - Laboratory and Diagnostics Result Diagrams: 12/30/19 04:33 12/30/19 04:33 Labs: 12/28/19 23:50 Urine,Catheterized Urine Culture - Preliminary 12/28/19 13:00 Blood Blood Culture - Preliminary 12/28/19 13:39 Blood Blood Culture - Preliminary Laboratory WBC 8.3 X10^3/uL (3.6-10.0) 12/30/19 04:33 RBC 2.30 X10^6/uL (3.5-5.4) L 12/30/19 04:33 Hgb 7.5 g/dL (12.0-16.0) L 12/30/19 04:33 Hct 21.3 % (36.0-47.0) L 12/30/19 04:33 MCV 92.9 fL (80.0-100.0) 12/30/19 04:33 MCH 32.6 pg (27.0-34.0) 12/30/19 04:33 MCHC 35.1 g/dL (33.0-35.0) H 12/30/19 04:33 RDW 14.2 % (11.6-16.5) 12/30/19 04:33 Plt Count 164 X10^3/uL (150.0-450.0) 12/30/19 04:33 Plt Count Comment Adequate (ADEQUATE) 12/30/19 04:33 MPV 7.9 fL (7.4-11.0) 12/30/19 04:33 Neut % (Auto) 67.7 % (42.0-75.0) 12/30/19 04:33 Lymph % (Auto) 20.0 % (21.0-51.0) L 12/30/19 04:33 [place] % (Auto) 9.1 % (0.0-13.0) 12/30/19 04:33 Eos % (Auto) 2.9 % (0.9-2.9) 12/30/19 04:33 Baso % (Auto) 0.3 % (0.2-1.0) 12/30/19 04:33 Neut # (Auto) 5.6 x10^3/uL (2.2-4.8) H 12/30/19 04:33 Lymph # (Auto) 1.7 X10^3/uL (1.3-2.9) 12/30/19 04:33 [place] # (Auto) 0.8 x10^3/uL (0.3-0.8) 12/30/19 04:33 Eos # (Auto) 0.2 x10^3/uL (0.0-0.2) 12/30/19 04:33 Baso # (Auto) 0.0 X10^3/uL (0.0-0.1) 12/30/19 04:33 Absolute Nucleated RBC 0.0 /100WBC 12/30/19 04:33 Plt Morphology Comment Normal (NORMAL) 12/30/19 04:33 RBC Morphology Normal (NORMAL) 12/30/19 04:33 PT 15.7 SECONDS (11.8-14.3) 12/29/19 04:38 INR Target Range - 12/29/19 04:38 INR 1.30 (0.8-1.3) 12/29/19 04:38 APTT 29.4 SECONDS (22.9-36.5) 12/29/19 04:38 PTT Comment - 12/29/19 04:38 Sodium 143 mmol/L (136-145) 12/30/19 04:33 Corrected Sodium 143 mmol/L (136-145) 12/30/19 04:33 Potassium 3.2 mmol/L (3.5-5.1) L 12/30/19 04:33 Chloride 109 mmol/L (98-107) H 12/30/19 04:33 Carbon Dioxide 21.6 mmol/L (21-32) 12/30/19 04:33 BUN 39 mg/dL (7-18) H 12/30/19 04:33 Creatinine 3.27 mg/dL (0.55-1.02) H 12/30/19 04:33 Est GFR (MDRD) Af Amer 17 (>60) L 12/30/19 04:33 Est GFR (MDRD) Non-Af 14 (>60) L 12/30/19 04:33 Glucose 115 mg/dL (65-99) H 12/30/19 04:33 POC Glucose (mg/dL) 140 mg/dL (65-99) H 12/29/19 20:06 Lactic Acid 0.8 mmol/L (0.4-2.0) 12/30/19 08:59 Calcium 8.2 mg/dL (8.5-10.1) L 12/30/19 04:33 Corrected Calcium 9.8 mg/dL (8.5-10.1) 12/30/19 04:33 Magnesium 1.8 mg/dL (1.7-2.9) 12/30/19 04:33 Total Bilirubin 0.20 mg/dL (0.2-1.0) 12/30/19 04:33 AST 16 Units/L (15-37) 12/30/19 04:33 ALT 13 Units/L (12-78) 12/30/19 04:33 Alkaline Phosphatase 25 Units/L (46-116) L 12/30/19 04:33 Creatine Kinase 157 Units/L (26-192) 12/29/19 04:38 CK-MB (CK-2) < 1.0 ng/mL (0-4.0) 12/29/19 04:38 CK/CKMB % Calc 0.6 % (<4) 12/29/19 04:38 Troponin I 0.10 ng/mL (0-1.5) 12/29/19 04:38 Total Protein 5.2 g/dL (6.4-8.2) L 12/30/19 04:33 Albumin 2.0 g/dL (3.4-5.0) L 12/30/19 04:33 Globulin 3.2 g/dL (2.5-4.5) 12/30/19 04:33 Albumin/Globulin Ratio 0.6 Ratio (1.1-2.1) L 12/30/19 04:33 Specimen Type Catherized urine 12/28/19 23:50 Urine Color Yellow (YELLOW) 12/28/19 23:50 Urine Appearance Cloudy (CLEAR) 12/28/19 23:50 Urine pH 8.0 (5.0 - 8.0) 12/28/19 23:50 Ur Specific [place] 1.010 (1.000-1.030) 12/28/19 23:50 Urine Protein 4+ (NEGATIVE) 12/28/19 23:50 Urine Glucose (UA) 1+ (NEGATIVE) 12/28/19 23:50 Urine Ketones 2+ (NEGATIVE) 12/28/19 23:50 Urine Occult Blood 2+ (NEGATIVE) 12/28/19 23:50 Urine Nitrite Negative (NEGATIVE) 12/28/19 23:50 Urine Bilirubin Negative (NEGATIVE) 12/28/19 23:50 Urine Urobilinogen Normal (NORMAL) 12/28/19 23:50 Ur Leukocyte Esterase 3+ (NEGATIVE) 12/28/19 23:50 Urine RBC 0-2 /HPF (0-3) 12/28/19 23:50 Urine WBC 10-20 /HPF (0-5) A 12/28/19 23:50 Ur Squamous Epith Cells Rare /HPF (NEGATIVE) 12/28/19 23:50 Urine Bacteria Trace /HPF (NEGATIVE) 12/28/19 23:50 Coarse Granular Casts Few /HPF (NEGATIVE) 12/28/19 14:08 Ur Culture Indicated? Yes/culture set up 12/28/19 23:50 Blood Type O POSITIVE 12/30/19 08:38 Antibody Screen Negative 12/30/19 08:38 Crossmatch See Detail 12/30/19 08:38 - Plan (1) New onset a-fib Status: Resolved (2) Sepsis Status: Acute Qualifiers: Sepsis type: sepsis due to unspecified organism Sepsis acute organ dysfunction status: unspecified Qualified Code(s): A41.9 - Sepsis, unspecified organism Plan: FORTAZ 0.5G IV DAILY, ZOSYN 2.25G IV TID, IV FLUIDS, CONTINUE TO MONITOR (3) Urinary tract infection Status: Acute Qualifiers: Urinary tract infection type: acute cystitis Hematuria presence: without hematuria Qualified Code(s): N30.00 - Acute cystitis without hematuria Plan: FORTAZ 0.5G IV DAILY, ZOSYN 2.25G IV TID, CONTINUE TO MONITOR (4) Acute renal failure Status: Acute Qualifiers: Acute renal failure type: unspecified Qualified Code(s): N17.9 - Acute kidney failure, unspecified Plan: OBTAIN RENAL US, IV HYDRATION, CONTINUE TO MONITOR (5) Altered mental status Status: Acute Qualifiers: Altered mental status type: transient alteration of awareness
[2019-12-30] MEDS ORDERED: K-LYTE EFFERVESCENT ONE (10:00)
[2019-12-30] MEDS ORDERED: NexIUM PO SCH (10:00)
[2019-12-30] MEDS: APRESOLINE TAB 25 MG PO SCH ×3 (10:04→21:06)
[2019-12-30] MEDS: COLACE CAP 100 MG PO SCH ×2 (10:04→20:01)
[2019-12-30] MEDS: FORTAZ OR TAZICEF IV SCH (10:05)
[2019-12-30] MEDS: ELAVIL PO SCH (10:05)
[2019-12-30] MEDS: NS IV SCH (10:05)
[2019-12-30] MEDS ORDERED: K-LYTE EFFERVESCENT PO ONE (10:11)
[2019-12-30] MEDS: NS 1000 ML 1,000 ML IV SCH ×2 (10:13→20:13)
[2019-12-30] MEDS: NIASPAN ER TAB 500 MG PO SCH (10:19)
[2019-12-30] MEDS: FOLIC ACID TAB 1 MG PO SCH (10:19)
[2019-12-30] MEDS: PROTONIX TAB 40 MG PO SCH (10:19)
[2019-12-30] MEDS: NITRODUR PATCH 0.4 MG/HR TD SCH (10:20)
[2019-12-30] MEDS: PROCARDIA XL 24-hr PO SCH (10:20)
[2019-12-30] MEDS: HumuLIN R SC PRN ×2 (11:15→16:36)
--- NOTE | 2019-12-30 11:22 | US ---
HISTORYRENAL FAILURESTUDYRENAL [id number]/2019.TECHNIQUEMultiple combs scale, duplex and color flow Doppler images of th e kidneys were obtained. The region of the urinary bladder was evaluated as well.FINDINGSThe right ki dney displays decrease cortical medullary echo differentiation. The right kidney measures 5.3 x 5.9 x 10.6 centimeters. Cortical thickness is 1.3 centimeters. Resistive index is 0.83, which is elevated .. No focal mass, hydronephrosis, or stones identified. There is a small amount of perinephric fluid seen on the right. Color Doppler flow is normal.The left kidney displays decreased corticomedullary echo differentiation. The left kidney measures 4.7 x 5.6 x 10.4 centimeters. Cortical thickness of 1. 1 centimeters. Resistive index is 0.78, which is elevated. Color Doppler studies of normal. No focal mass, hydronephrosis, or stone can be seen within the left kidney.A Barber catheter is present within the urinary bladder which is decompressed.IMPRESSIONDecreased corticomedullary echo differentiation a nd increased resistive indices, both of which are compatible with medical renal disease.No evidence o f renal mass, stone or hydronephrosis is seen. There is a small amount of perinephric fluid seen on t he right.Electronically signed by: JIMENA LANE (Dec 30, 2019 11:20:05)
[2019-12-30] MEDS: NORCO 5/325 MG TAB PO PRN (20:01)
[2019-12-30] MEDS: SNACK - Diabetic Appropriate PO SCH (20:01)
[2019-12-30] MEDS: LIPITOR TAB 40 MG PO SCH (20:02)
[2019-12-30] MEDS: COZAAR PO SCH (20:02)
[2019-12-30] MEDS: LANTUS SC SCH (20:12)
[2019-12-30] MEDS ORDERED: BUTT CREAM (COMPOUND) ONE (20:36)
[2019-12-30] MEDS ORDERED: BUTT CREAM (COMPOUND) TOP PRN (21:00)
[2019-12-31] MEDS: NS 1000 ML 1,000 ML IV SCH ×4 (04:31→22:00)
[2019-12-31] MEDS: ZOSYN VIAL 2.25 GRAMS 2.25 G in NS 100 ML IV + SPIKE MINIBAG* 100 ML IV SCH ×3 (05:14→21:03)
[2019-12-31] MEDS: APRESOLINE TAB 25 MG PO SCH ×3 (05:14→21:06)
[2019-12-31] MEDS: PROVENTIL NEB TX 0.083% 2.5MG/ 3ML NEB SCH ×3 (05:35→20:36)
[2019-12-31 06:47] LABS: BASOPHILS % (AUTO) 0.8 % (0.2-1.0); EOSINOPHILS # (AUTO) 0.3 x10^3/uL (0.0-0.2); EOSINOPHILS % (AUTO) 4.4 % (0.9-2.9); HEMATOCRIT 23.5 % (36.0-47.0); HEMOGLOBIN 8.3 g/dL (12.0-16.0); LYMPHOCYTES # (AUTO) 1.3 X10^3/uL (1.3-2.9); LYMPHOCYTES % (AUTO) 19.9 % (21.0-51.0); MEAN CORPUSCULAR HEMOGLOBIN 32.5 pg (27.0-34.0); MEAN CORPUSCULAR HGB CONC 35.2 g/dL (33.0-35.0); MEAN CORPUSCULAR VOLUME 92.4 fL (80.0-100.0); MEAN PLATELET VOLUME 8.4 fL (7.4-11.0); MONOCYTES # (AUTO) 0.6 x10^3/uL (0.3-0.8); MONOCYTES % (AUTO) 10.1 % (0.0-13.0); NEUTROPHILS # (AUTO) 4.1 x10^3/uL (2.2-4.8); NEUTROPHILS % (AUTO) 64.8 % (42.0-75.0); PLATELET COUNT 164 X10^3/uL (150.0-450.0); RED BLOOD COUNT 2.54 X10^6/uL (3.5-5.4); RED CELL DISTRIBUTION WIDTH 14.5 % (11.6-16.5); WHITE BLOOD COUNT 6.3 X10^3/uL (3.6-10.0)
[2019-12-31 06:53] LABS: CARBON DIOXIDE 21.5 mmol/L (21-32); COR CA(FOR HYPOALB) 9.6 mg/dL (8.5-10.1); CREATININE 2.62 mg/dL (0.55-1.02); TOTAL PROTEIN 5.5 g/dL (6.4-8.2)
[2019-12-31] MEDS: PROVENTIL NEB TX 0.083% 2.5MG/ 3ML NEB PRN (08:55)
[2019-12-31] MEDS: PULMICORT NEB TX 0.5 MG NEB SCH ×2 (08:55→20:35)
[2019-12-31] MEDS: NIASPAN ER TAB 500 MG PO SCH (09:36)
[2019-12-31] MEDS: ELAVIL PO SCH (09:36)
[2019-12-31] MEDS: COLACE CAP 100 MG PO SCH ×2 (09:36→21:06)
[2019-12-31] MEDS: FOLIC ACID TAB 1 MG PO SCH (09:36)
[2019-12-31] MEDS: PROTONIX TAB 40 MG PO SCH (09:36)
[2019-12-31] MEDS: PROCARDIA XL 24-hr PO SCH (09:37)
[2019-12-31] MEDS: NITRODUR PATCH 0.4 MG/HR TD SCH (09:37)
[2019-12-31] MEDS: FORTAZ OR TAZICEF IV SCH (10:43)
[2019-12-31] MEDS: NS IV SCH (10:43)
[2019-12-31] MEDS: HumuLIN R SC PRN ×2 (11:07→21:05)
[2019-12-31] MEDS ORDERED: COREG TAB 6.25 MG ONE (18:04)
--- NOTE | 2019-12-31 18:06 | PCM.PROG ---
Progress Note - Progress Note for Day of Date of Exam: 12/31/19 - Subjective Subjective: WAS ADMITTED FOR NEW ONSET A-FIB WITH RVR, UROSEPSIS, AND ALTERED MENTAL STATUS. SHE HAS SINCE CONVERTED TO NORMAL SINUS RHYTHM. HEART RATE IS WITHIN NORMAL LIMITS TODAY. TODAY, SHE IS ALERT AND ORIENTED, LYING IN BED ON MORNING ROUNDS. SHE REPORTS WEAKNESS. ON EXAMINATION, HEART IS REGULAR IN RATE AND RHYTHM. HER LUNGS ARE NOTED WITH DIMINISHED LUNG SOUNDS THROUGHOUT. ABDOMEN IS FLAT, SOFT, AND NON-TENDER. NORMAL BOWEL SOUNDS ARE NOTED IN ALL QUADRANTS. HER VITALS THIS MORNING ARE: 98.1-82-24-100%-143/65. LABS WERE OBTAINED. ABNORMAL LAB VALUES INCLUDE THE FOLLOWING: RBC 2.54, HGB 8.3, HCT 23.5, CHLORIDE 111, BUN 27, CREATININE 2.62, GLUCOSE 142, CALCIUM 8.0, ALK PHOS 35, TOTAL PROTEIN 5.5, ALBUMIN 2.0. URINE AND BLOOD CULTURES ARE PENDING. SHE IS CURRENTLY RECEIVING HYDRALAZINE 50MG PO TID, NIFEDIPINE 60MG PO DAILY, LOSARTAN 50MG PO HS, A NITRO PATCH, HUMULIN R SLIDING SCALE, NS AT 125ML/HR, NEB TX, ZOSYN 2.25G IV TID, FORTAZ 0.5G IV DAILY. TODAY, WE WILL RESTART COREG AT 6.25MG PO BID. OTHERWISE, WE WILL FOLLOW UP WITH AM LABS AND CONTINUE TO MONITOR. - Past Medical Family Social History Past Med/Fam/Surg Hx: No changes since H&P Allergies: Allergies meperidine [From Demerol] Allergy (Verified 03/20/19 11:20) - Review of Systems ROS: No change since H&P - Vital Signs and I&O's Vital Signs: Temperature 97.9 F Pulse Rate 85 Respiratory Rate 19 Blood Pressure [Left Arm] 197/83 Blood Pressure 185/84 O2 Sat by Pulse Oximetry 100 Intake and Output: Intake & Output 12/29/19 12/30/19 12/31/19 01/01/20 11:59 11:59 11:59 11:59 Intake Total 1265 / 1265 2753 / 2753 4253 / 4253 2500 / 2500 Output Total 350 / 350 625 / 625 1500 / 1500 1400 / 1400 Balance 915 / 915 2128 / 2128 2753 / 2753 1100 / 1100 - Physical Exam Oriented: Normal Eyes: Normal Ear: Normal Nose: Normal Throat: Normal Respiratory: Generalized, Diminished Cardiovascular: Normal, Bradycardia. negative: S3, S4, Murmur : Normal Auscultation: Bowel Sounds: Normal Palpation: Normal Tenderness: Normal Skin: Normal Musculoskeletal: Normal Psychiatric: Normal Mood Description: Calm Affect: Normal Speech Pattern: Clear - Laboratory and Diagnostics Result Diagrams: 12/31/19 04:08 12/31/19 04:08 Labs: 12/28/19 23:50 Urine,Catheterized Urine Culture - Final 12/28/19 13:00 Blood Blood Culture - Preliminary 12/28/19 13:39 Blood Blood Culture - Preliminary Laboratory WBC 6.3 X10^3/uL (3.6-10.0) 12/31/19 04:08 RBC 2.54 X10^6/uL (3.5-5.4) L 12/31/19 04:08 Hgb 8.3 g/dL (12.0-16.0) L 12/31/19 04:08 Hct 23.5 % (36.0-47.0) L 12/31/19 04:08 MCV 92.4 fL (80.0-100.0) 12/31/19 04:08 MCH 32.5 pg (27.0-34.0) 12/31/19 04:08 MCHC 35.2 g/dL (33.0-35.0) H 12/31/19 04:08 RDW 14.5 % (11.6-16.5) 12/31/19 04:08 Plt Count 164 X10^3/uL (150.0-450.0) 12/31/19 04:08 Plt Count Comment Adequate (ADEQUATE) 12/30/19 04:33 MPV 8.4 fL (7.4-11.0) 12/31/19 04:08 Neut % (Auto) 64.8 % (42.0-75.0) 12/31/19 04:08 Lymph % (Auto) 19.9 % (21.0-51.0) L 12/31/19 04:08 [place] % (Auto) 10.1 % (0.0-13.0) 12/31/19 04:08 Eos % (Auto) 4.4 % (0.9-2.9) H 12/31/19 04:08 Baso % (Auto) 0.8 % (0.2-1.0) 12/31/19 04:08 Neut # (Auto) 4.1 x10^3/uL (2.2-4.8) 12/31/19 04:08 Lymph # (Auto) 1.3 X10^3/uL (1.3-2.9) 12/31/19 04:08 [place] # (Auto) 0.6 x10^3/uL (0.3-0.8) 12/31/19 04:08 Eos # (Auto) 0.3 x10^3/uL (0.0-0.2) H 12/31/19 04:08 Baso # (Auto) 0.0 X10^3/uL (0.0-0.1) 12/31/19 04:08 Absolute Nucleated RBC 0.0 /100WBC 12/31/19 04:08 Plt Morphology Comment Normal (NORMAL) 12/30/19 04:33 RBC Morphology Normal (NORMAL) 12/30/19 04:33 PT 15.7 SECONDS (11.8-14.3) 12/29/19 04:38 INR Target Range - 12/29/19 04:38 INR 1.30 (0.8-1.3) 12/29/19 04:38 APTT 29.4 SECONDS (22.9-36.5) 12/29/19 04:38 PTT Comment - 12/29/19 04:38 Sodium 142 mmol/L (136-145) 12/31/19 04:08 Corrected Sodium 143 mmol/L (136-145) 12/31/19 04:08 Potassium 3.5 mmol/L (3.5-5.1) 12/31/19 04:08 Chloride 111 mmol/L (98-107) H 12/31/19 04:08 Carbon Dioxide 21.5 mmol/L (21-32) 12/31/19 04:08 BUN 27 mg/dL (7-18) H 12/31/19 04:08 Creatinine 2.62 mg/dL (0.55-1.02) H 12/31/19 04:08 Est GFR (MDRD) Af Amer 22 (>60) L 12/31/19 04:08 Est GFR (MDRD) Non-Af 18 (>60) L 12/31/19 04:08 Glucose 142 mg/dL (65-99) H 12/31/19 04:08 POC Glucose (mg/dL) 151 mg/dL (65-99) H 12/31/19 17:02 Lactic Acid 0.8 mmol/L (0.4-2.0) 12/30/19 08:59 Calcium 8.0 mg/dL (8.5-10.1) L 12/31/19 04:08 Corrected Calcium 9.6 mg/dL (8.5-10.1) 12/31/19 04:08 Magnesium 1.8 mg/dL (1.7-2.9) 12/30/19 04:33 Total Bilirubin 0.20 mg/dL (0.2-1.0) 12/31/19 04:08 AST 19 Units/L (15-37) 12/31/19 04:08 ALT 16 Units/L (12-78) 12/31/19 04:08 Alkaline Phosphatase 35 Units/L (46-116) L 12/31/19 04:08 Creatine Kinase 157 Units/L (26-192) 12/29/19 04:38 CK-MB (CK-2) < 1.0 ng/mL (0-4.0) 12/29/19 04:38 CK/CKMB % Calc 0.6 % (<4) 12/29/19 04:38 Troponin I 0.10 ng/mL (0-1.5) 12/29/19 04:38 Total Protein 5.5 g/dL (6.4-8.2) L 12/31/19 04:08 Albumin 2.0 g/dL (3.4-5.0) L 12/31/19 04:08 Globulin 3.5 g/dL (2.5-4.5) 12/31/19 04:08 Albumin/Globulin Ratio 0.6 Ratio (1.1-2.1) L 12/31/19 04:08 Specimen Type Catherized urine 12/28/19 23:50 Urine Color Yellow (YELLOW) 12/28/19 23:50 Urine Appearance Cloudy (CLEAR) 12/28/19 23:50 Urine pH 8.0 (5.0 - 8.0) 12/28/19 23:50 Ur Specific [place] 1.010 (1.000-1.030) 12/28/19 23:50 Urine Protein 4+ (NEGATIVE) 12/28/19 23:50 Urine Glucose (UA) 1+ (NEGATIVE) 12/28/19 23:50 Urine Ketones 2+ (NEGATIVE) 12/28/19 23:50 Urine Occult Blood 2+ (NEGATIVE) 12/28/19 23:50 Urine Nitrite Negative (NEGATIVE) 12/28/19 23:50 Urine Bilirubin Negative (NEGATIVE) 12/28/19 23:50 Urine Urobilinogen Normal (NORMAL) 12/28/19 23:50 Ur Leukocyte Esterase 3+ (NEGATIVE) 12/28/19 23:50 Urine RBC 0-2 /HPF (0-3) 12/28/19 23:50 Urine WBC 10-20 /HPF (0-5) A 12/28/19 23:50 Ur Squamous Epith Cells Rare /HPF (NEGATIVE) 12/28/19 23:50 Urine Bacteria Trace /HPF (NEGATIVE) 12/28/19 23:50 Coarse Granular Casts Few /HPF (NEGATIVE) 12/28/19 14:08 Ur Culture Indicated? Yes/culture set up 12/28/19 23:50 Blood Type O POSITIVE 12/30/19 08:38 Antibody Screen Negative 12/30/19 08:38 Crossmatch See Detail 12/30/19 08:38 - Plan (1) New onset a-fib Status: Resolved (2) Sepsis Status: Acute Qualifiers: Sepsis type: sepsis due to unspecified organism Sepsis acute organ dysfunction status: unspecified Qualified Code(s): A41.9 - Sepsis, unspecified organism Plan: FORTAZ 0.5G IV DAILY, ZOSYN 2.25G IV TID, IV FLUIDS, CONTINUE TO MONITOR (3) Urinary tract infection Status: Acute Qualifiers: Urinary tract infection type: acute cystitis Hematuria presence: without hematuria Qualified Code(s): N30.00 - Acute cystitis without hematuria Plan: FORTAZ 0.5G IV DAILY, ZOSYN 2.25G IV TID, CONTINUE TO MONITOR (4) Acute renal failure Status: Acute Qualifiers: Acute renal failure type: unspecified Qualified Code(s): N17.9 - Acute kidney failure, unspecified Plan: OBTAIN RENAL US, IV HYDRATION, CONTINUE TO MONITOR (5) Altered mental status Status: Acute Qualifiers: Altered mental status type: transient alteration of awareness (6) Hypertension Status: Chronic Qualifiers: Hypertension type: essential hypertension Qualified Code(s): I10 - Essential (primary) hypertension Plan: COREG 6.25MG PO BID, HYDRALAZINE 50MG PO TID, NIFEDIPINE 60MG PO DAILY, LOSARTAN 50MG PO HS, A NITRO PATCH
[2019-12-31] MEDS: COREG TAB 6.25 MG PO SCH (18:08)
[2019-12-31] MEDS: SNACK - Diabetic Appropriate PO SCH (19:50)
[2019-12-31] MEDS: LANTUS SC SCH (21:04)
[2019-12-31] MEDS: COZAAR PO SCH (21:06)
[2019-12-31] MEDS: LIPITOR TAB 40 MG PO SCH (21:06)
[2020-01-01 05:36] LABS: BASOPHILS % (AUTO) 0.6 % (0.2-1.0); EOSINOPHILS # (AUTO) 0.3 x10^3/uL (0.0-0.2); EOSINOPHILS % (AUTO) 4.5 % (0.9-2.9); HEMATOCRIT 23.2 % (36.0-47.0); HEMOGLOBIN 8.1 g/dL (12.0-16.0); LYMPHOCYTES # (AUTO) 1.4 X10^3/uL (1.3-2.9); LYMPHOCYTES % (AUTO) 20.9 % (21.0-51.0); MEAN CORPUSCULAR HEMOGLOBIN 32.4 pg (27.0-34.0); MEAN CORPUSCULAR HGB CONC 34.7 g/dL (33.0-35.0); MEAN CORPUSCULAR VOLUME 93.4 fL (80.0-100.0); MEAN PLATELET VOLUME 8.8 fL (7.4-11.0); MONOCYTES # (AUTO) 0.7 x10^3/uL (0.3-0.8); MONOCYTES % (AUTO) 9.5 % (0.0-13.0); NEUTROPHILS # (AUTO) 4.5 x10^3/uL (2.2-4.8); NEUTROPHILS % (AUTO) 64.5 % (42.0-75.0); PLATELET COUNT 188 X10^3/uL (150.0-450.0); RED BLOOD COUNT 2.49 X10^6/uL (3.5-5.4); RED CELL DISTRIBUTION WIDTH 14.2 % (11.6-16.5); WHITE BLOOD COUNT 6.9 X10^3/uL (3.6-10.0)
[2020-01-01] MEDS: ZOSYN VIAL 2.25 GRAMS 2.25 G in NS 100 ML IV + SPIKE MINIBAG* 100 ML IV SCH ×3 (05:36→22:00)
[2020-01-01] MEDS: APRESOLINE TAB 25 MG PO SCH ×3 (05:36→21:01)
[2020-01-01] MEDS: NS 1000 ML 1,000 ML IV SCH ×4 (05:40→22:24)
[2020-01-01 05:47] LABS: ALBUMIN 1.9 g/dL (3.4-5.0); CARBON DIOXIDE 18.8 mmol/L (21-32); COR CA(FOR HYPOALB) 9.7 mg/dL (8.5-10.1); CREATININE 2.18 mg/dL (0.55-1.02); TOTAL PROTEIN 5.3 g/dL (6.4-8.2)
[2020-01-01] MEDS: PROVENTIL NEB TX 0.083% 2.5MG/ 3ML NEB SCH ×3 (05:48→20:13)
[2020-01-01] MEDS: COLACE CAP 100 MG PO SCH ×2 (08:14→21:01)
[2020-01-01] MEDS: COREG TAB 6.25 MG PO SCH ×2 (08:15→21:00)
[2020-01-01] MEDS: FOLIC ACID TAB 1 MG PO SCH (08:15)
[2020-01-01] MEDS: FORTAZ OR TAZICEF IV SCH (08:15)
[2020-01-01] MEDS: ELAVIL PO SCH (08:15)
[2020-01-01] MEDS: NS IV SCH (08:15)
[2020-01-01] MEDS: PROCARDIA XL 24-hr PO SCH (08:16)
[2020-01-01] MEDS: PROTONIX TAB 40 MG PO SCH (08:16)
[2020-01-01] MEDS: NIASPAN ER TAB 500 MG PO SCH (08:16)
[2020-01-01] MEDS: NORCO 5/325 MG TAB PO PRN (09:10)
[2020-01-01] MEDS: PULMICORT NEB TX 0.5 MG NEB SCH ×2 (09:33→20:12)
[2020-01-01] MEDS: PROVENTIL NEB TX 0.083% 2.5MG/ 3ML NEB PRN (09:33)
[2020-01-01 09:56] LABS: IRON 19 ug/dL (50-175)
[2020-01-01] MEDS: NITRODUR PATCH 0.4 MG/HR TD SCH (10:32)
[2020-01-01] MEDS ORDERED: LOPRESSOR TAB 25 MG PO SCH (11:00)
--- NOTE | 2020-01-01 15:57 | RAD ---
HISTORYAFIB, HTN, SOB prior history of renal failureSTUDYCHEST, 1 [id number]/09/2020FINDINGSThe trachea is midline. The cardiac silhouette is enlarged with aortic uncoiling. There is atherosclerotic calcification of aortic arch. Since the prior studies, there are as developed pulmonary vascular congestion with increased interstitial markings bilaterally with Garrett B-lines. Findings have the appearance of CHF. There is small bilateral pleural effusions. Findings may be produced by fluid overload also. Osseous structures are intact..Impression:Increasing heart size with pulmonary vascular congestion and signs of CHF versus fluid overload. There are bilateral pleural effusions.Electronically signed by: JIMENA LANE (Jan 01, 2020 15:56:02)
[2020-01-01] MEDS: HEMOCYTE-PLUS PO SCH (16:36)
[2020-01-01] MEDS: HumuLIN R SC PRN (16:41)
[2020-01-01] MEDS: APRESOLINE INJ 20 MG VIAL IVP PRN (17:42)
[2020-01-01] MEDS: MAGNESIUM SULFATE 1 GRAM/100 mL PREMIX 1 GM/100 ML BAG IV PRN ×2 (19:43→20:50)
[2020-01-01] MEDS: SNACK - Diabetic Appropriate PO SCH (20:00)
[2020-01-01] MEDS: LIPITOR TAB 40 MG PO SCH (21:00)
[2020-01-01] MEDS: PROTONIX INJ 40 MG VIAL IVP SCH (21:00)
[2020-01-01] MEDS: COZAAR PO SCH (21:01)
[2020-01-01] MEDS: LANTUS SC SCH (21:31)
[2020-01-02] MEDS: MAGNESIUM SULFATE 1 GRAM/100 mL PREMIX 1 GM/100 ML BAG IV PRN ×2 (01:20→03:11)
[2020-01-02] MEDS: PROVENTIL NEB TX 0.083% 2.5MG/ 3ML NEB SCH ×3 (05:00→20:19)
[2020-01-02 05:23] LABS: BASOPHILS # (AUTO) 0.1 X10^3/uL (0.0-0.1); BASOPHILS % (AUTO) 0.8 % (0.2-1.0); EOSINOPHILS # (AUTO) 0.4 x10^3/uL (0.0-0.2); EOSINOPHILS % (AUTO) 5.2 % (0.9-2.9); HEMOGLOBIN 8.1 g/dL (12.0-16.0); LYMPHOCYTES # (AUTO) 1.3 X10^3/uL (1.3-2.9); LYMPHOCYTES % (AUTO) 18.9 % (21.0-51.0); MEAN CORPUSCULAR HEMOGLOBIN 32.8 pg (27.0-34.0); MEAN CORPUSCULAR HGB CONC 35.2 g/dL (33.0-35.0); MEAN PLATELET VOLUME 8.5 fL (7.4-11.0); MONOCYTES # (AUTO) 0.7 x10^3/uL (0.3-0.8); MONOCYTES % (AUTO) 10.5 % (0.0-13.0); NEUTROPHILS # (AUTO) 4.4 x10^3/uL (2.2-4.8); NEUTROPHILS % (AUTO) 64.6 % (42.0-75.0); PLATELET COUNT 196 X10^3/uL (150.0-450.0); RED BLOOD COUNT 2.47 X10^6/uL (3.5-5.4); RED CELL DISTRIBUTION WIDTH 14.3 % (11.6-16.5); WHITE BLOOD COUNT 6.8 X10^3/uL (3.6-10.0)
[2020-01-02] MEDS: APRESOLINE TAB 25 MG PO SCH ×3 (05:26→21:07)
[2020-01-02] MEDS: ZOSYN VIAL 2.25 GRAMS 2.25 G in NS 100 ML IV + SPIKE MINIBAG* 100 ML IV SCH ×3 (05:26→21:00)
[2020-01-02 05:34] LABS: ALBUMIN 1.7 g/dL (3.4-5.0); CALCIUM 8.4 mg/dL (8.5-10.1); CARBON DIOXIDE 19.9 mmol/L (21-32); COR CA(FOR HYPOALB) 10.2 mg/dL (8.5-10.1); TOTAL PROTEIN 5.1 g/dL (6.4-8.2)
[2020-01-02] MEDS: ELAVIL PO SCH (08:14)
[2020-01-02] MEDS: COREG TAB 6.25 MG PO SCH ×2 (08:14→21:08)
[2020-01-02] MEDS: FOLIC ACID TAB 1 MG PO SCH (08:14)
[2020-01-02] MEDS: COLACE CAP 100 MG PO SCH ×2 (08:14→21:09)
[2020-01-02] MEDS: NS 1000 ML 1,000 ML IV SCH ×2 (08:15→21:00)
[2020-01-02] MEDS: NIASPAN ER TAB 500 MG PO SCH (08:15)
[2020-01-02] MEDS: PROTONIX INJ 40 MG VIAL IVP SCH ×2 (08:15→21:05)
[2020-01-02] MEDS: PROCARDIA XL 24-hr PO SCH (08:15)
[2020-01-02] MEDS: HEMOCYTE-PLUS PO SCH (08:15)
[2020-01-02] MEDS: PULMICORT NEB TX 0.5 MG NEB SCH ×2 (08:19→20:19)
[2020-01-02] MEDS: PROVENTIL NEB TX 0.083% 2.5MG/ 3ML NEB PRN ×2 (08:19→12:07)
[2020-01-02] MEDS: APRESOLINE INJ 20 MG VIAL IVP PRN (08:56)
[2020-01-02] MEDS: NITRODUR PATCH 0.4 MG/HR TD SCH (09:01)
[2020-01-02] MEDS: NORCO 5/325 MG TAB PO PRN (10:15)
[2020-01-02] MEDS ORDERED: PROCRIT or EPOGEN VIAL 10,000 UNITS SC NR (11:20)
[2020-01-02] MEDS: K-DUR TAB 20 MEQ PO PRN (11:55)
[2020-01-02] MEDS ORDERED: COREG TAB 12.5 MG PO ONE (11:59)
[2020-01-02 13:49] LABS: HEMATOCRIT 24.9 % (36.0-47.0); HEMOGLOBIN 8.8 g/dL (12.0-16.0)
[2020-01-02] MEDS: SNACK - Diabetic Appropriate PO SCH (21:00)
[2020-01-02] MEDS: LIPITOR TAB 40 MG PO SCH (21:07)
[2020-01-02] MEDS: COZAAR PO SCH (21:09)
[2020-01-02] MEDS: LANTUS SC SCH (21:40)
[2020-01-03] MEDS: PROVENTIL NEB TX 0.083% 2.5MG/ 3ML NEB SCH ×3 (05:15→20:04)
[2020-01-03 05:25] LABS: BASOPHILS # (AUTO) 0.1 X10^3/uL (0.0-0.1); BASOPHILS % (AUTO) 1.1 % (0.2-1.0); EOSINOPHILS # (AUTO) 0.3 x10^3/uL (0.0-0.2); EOSINOPHILS % (AUTO) 5.4 % (0.9-2.9); HEMATOCRIT 23.7 % (36.0-47.0); HEMOGLOBIN 8.4 g/dL (12.0-16.0); LYMPHOCYTES # (AUTO) 1.3 X10^3/uL (1.3-2.9); LYMPHOCYTES % (AUTO) 23.2 % (21.0-51.0); MEAN CORPUSCULAR HEMOGLOBIN 32.6 pg (27.0-34.0); MEAN CORPUSCULAR HGB CONC 35.3 g/dL (33.0-35.0); MEAN CORPUSCULAR VOLUME 92.5 fL (80.0-100.0); MEAN PLATELET VOLUME 8.6 fL (7.4-11.0); MONOCYTES # (AUTO) 0.6 x10^3/uL (0.3-0.8); MONOCYTES % (AUTO) 10.4 % (0.0-13.0); NEUTROPHILS # (AUTO) 3.4 x10^3/uL (2.2-4.8); NEUTROPHILS % (AUTO) 59.9 % (42.0-75.0); PLATELET COUNT 226 X10^3/uL (150.0-450.0); RED BLOOD COUNT 2.56 X10^6/uL (3.5-5.4); WHITE BLOOD COUNT 5.7 X10^3/uL (3.6-10.0)
[2020-01-03 05:36] LABS: ALBUMIN 1.7 g/dL (3.4-5.0); CALCIUM 8.6 mg/dL (8.5-10.1); CARBON DIOXIDE 19.2 mmol/L (21-32); COR CA(FOR HYPOALB) 10.4 mg/dL (8.5-10.1); CREATININE 1.99 mg/dL (0.55-1.02); MAGNESIUM 2.2 mg/dL (1.7-2.9); TOTAL PROTEIN 5.2 g/dL (6.4-8.2)
[2020-01-03] MEDS: APRESOLINE TAB 25 MG PO SCH ×3 (06:08→21:03)
[2020-01-03] MEDS: ZOSYN VIAL 2.25 GRAMS 2.25 G in NS 100 ML IV + SPIKE MINIBAG* 100 ML IV SCH ×3 (06:09→21:03)
[2020-01-03] MEDS: COREG TAB 6.25 MG PO SCH ×2 (08:08→20:52)
[2020-01-03] MEDS: PULMICORT NEB TX 0.5 MG NEB SCH ×2 (08:57→20:04)
[2020-01-03] MEDS: PROTONIX INJ 40 MG VIAL IVP SCH ×2 (09:13→20:53)
[2020-01-03] MEDS: PROCARDIA XL 24-hr PO SCH (09:14)
[2020-01-03] MEDS: HEMOCYTE-PLUS PO SCH (09:14)
[2020-01-03] MEDS: NIASPAN ER TAB 500 MG PO SCH (09:14)
[2020-01-03] MEDS: ELAVIL PO SCH (09:15)
[2020-01-03] MEDS: COLACE CAP 100 MG PO SCH ×2 (09:15→20:52)
[2020-01-03] MEDS: FOLIC ACID TAB 1 MG PO SCH (09:15)
[2020-01-03] MEDS ORDERED: PROCARDIA XL PO ONE (09:35)
[2020-01-03] MEDS ORDERED: COZAAR PO ONE (09:36)
[2020-01-03] MEDS: NITRODUR PATCH 0.4 MG/HR TD SCH (11:08)
[2020-01-03] MEDS: MICRO K EXTEN CAP 10 MEQ PO SCH (14:35)
[2020-01-03] MEDS: NS 1000 ML 1,000 ML IV SCH ×3 (17:48→20:53)
[2020-01-03] MEDS: SNACK - Diabetic Appropriate PO SCH (20:25)
[2020-01-03] MEDS: LANTUS SC SCH (20:52)
[2020-01-03] MEDS: LIPITOR TAB 40 MG PO SCH (20:53)
[2020-01-03] MEDS: NORCO 5/325 MG TAB PO PRN (20:54)
[2020-01-04] MEDS: PROVENTIL NEB TX 0.083% 2.5MG/ 3ML NEB SCH ×3 (05:30→19:59)
[2020-01-04 05:32] LABS: ALANINE AMINOTRANSFERASE 12 Units/L (12-78); ALBUMIN 1.9 g/dL (3.4-5.0); ALKALINE PHOSPHATASE 31 Units/L (46-116); ASPARTATE AMINO TRANSFERASE 12 Units/L (15-37); BLOOD UREA NITROGEN 14 mg/dL (7-18); CARBON DIOXIDE 19.3 mmol/L (21-32); CHLORIDE 111 mmol/L (98-107); COR CA(FOR HYPOALB) 10.7 mg/dL (8.5-10.1); CREATININE 1.95 mg/dL (0.55-1.02); SODIUM 140 mmol/L (136-145); TOTAL PROTEIN 5.4 g/dL (6.4-8.2); eGFR NON BLACK RACES 26 (>60)
[2020-01-04] MEDS: APRESOLINE TAB 25 MG PO SCH ×3 (05:33→21:27)
[2020-01-04] MEDS: ZOSYN VIAL 2.25 GRAMS 2.25 G in NS 100 ML IV + SPIKE MINIBAG* 100 ML IV SCH ×3 (05:33→22:28)
[2020-01-04 05:43] LABS: BASOPHILS # (AUTO) 0.1 X10^3/uL (0.0-0.1); BASOPHILS % (AUTO) 0.8 % (0.2-1.0); EOSINOPHILS # (AUTO) 0.4 x10^3/uL (0.0-0.2); EOSINOPHILS % (AUTO) 5.5 % (0.9-2.9); HEMATOCRIT 23.7 % (36.0-47.0); HEMOGLOBIN 8.5 g/dL (12.0-16.0); LYMPHOCYTES # (AUTO) 1.5 X10^3/uL (1.3-2.9); LYMPHOCYTES % (AUTO) 24.1 % (21.0-51.0); MEAN CORPUSCULAR HEMOGLOBIN 32.6 pg (27.0-34.0); MEAN CORPUSCULAR VOLUME 90.6 fL (80.0-100.0); MEAN PLATELET VOLUME 7.7 fL (7.4-11.0); MONOCYTES # (AUTO) 0.7 x10^3/uL (0.3-0.8); MONOCYTES % (AUTO) 11.3 % (0.0-13.0); NEUTROPHILS # (AUTO) 3.7 x10^3/uL (2.2-4.8); NEUTROPHILS % (AUTO) 58.3 % (42.0-75.0); PLATELET COUNT 250 X10^3/uL (150.0-450.0); RED BLOOD COUNT 2.61 X10^6/uL (3.5-5.4); RED CELL DISTRIBUTION WIDTH 14.1 % (11.6-16.5); WHITE BLOOD COUNT 6.4 X10^3/uL (3.6-10.0)
--- NOTE | 2020-01-04 06:23 | RAD ---
HISTORYShortness of breathSTUDYCHEST, 1 [id number]/13/2020FINDINGSThe heart is enlarged. No definite congestive heart failure is noted. The aorta is calcified. The laney are normal. The lungs are hyperinflated no definite acute alveolar infiltrates are identified. No definite pleural effusions on today's examination. Bony thorax is unremarkable.IMPRESSIONCardiomegaly without congestive heart failureLungs hyperinflated but free of acute infiltratesElectronically signed by: JOSEPHINE ASHFORD (Jan 04, 2020 06:21:13)
[2020-01-04] MEDS: COREG TAB 6.25 MG PO SCH ×2 (08:31→21:28)
[2020-01-04] MEDS: FOLIC ACID TAB 1 MG PO SCH (08:32)
[2020-01-04] MEDS: ELAVIL PO SCH (08:32)
[2020-01-04] MEDS: COLACE CAP 100 MG PO SCH ×2 (08:33→21:28)
[2020-01-04] MEDS: HEMOCYTE-PLUS PO SCH (08:33)
[2020-01-04] MEDS: PROCARDIA XL 24-hr PO SCH (08:33)
[2020-01-04] MEDS: NIASPAN ER TAB 500 MG PO SCH (08:33)
[2020-01-04] MEDS: MICRO K EXTEN CAP 10 MEQ PO SCH (08:33)
[2020-01-04] MEDS: PROTONIX INJ 40 MG VIAL IVP SCH ×2 (08:34→21:27)
[2020-01-04] MEDS: PULMICORT NEB TX 0.5 MG NEB SCH ×2 (08:56→19:59)
[2020-01-04] MEDS: ALBUMIN HUMAN 25%- 100 ML 100 ML IV SCH ×2 (09:48→21:26)
[2020-01-04] MEDS: NITRODUR PATCH 0.4 MG/HR TD SCH (09:48)
[2020-01-04] MEDS: NS 1000 ML 1,000 ML IV SCH (10:20)
[2020-01-04] MEDS: LASIX IVP ONE (11:16)
[2020-01-04] MEDS: NORCO 5/325 MG TAB PO PRN (11:51)
[2020-01-04] MEDS: COZAAR PO SCH (21:28)
[2020-01-04] MEDS: LIPITOR TAB 40 MG PO SCH (21:28)
[2020-01-04] MEDS: SNACK - Diabetic Appropriate PO SCH (21:29)
[2020-01-04] MEDS: LANTUS SC SCH (21:37)
[2020-01-05] MEDS: PROVENTIL NEB TX 0.083% 2.5MG/ 3ML NEB SCH ×3 (05:10→21:22)
[2020-01-05 05:31] LABS: BASOPHILS % (AUTO) 0.9 % (0.2-1.0); EOSINOPHILS # (AUTO) 0.2 x10^3/uL (0.0-0.2); EOSINOPHILS % (AUTO) 3.8 % (0.9-2.9); HEMATOCRIT 20.8 % (36.0-47.0); HEMOGLOBIN 7.3 g/dL (12.0-16.0); LYMPHOCYTES # (AUTO) 1.4 X10^3/uL (1.3-2.9); MEAN CORPUSCULAR HEMOGLOBIN 32.3 pg (27.0-34.0); MEAN CORPUSCULAR HGB CONC 35.3 g/dL (33.0-35.0); MEAN CORPUSCULAR VOLUME 91.5 fL (80.0-100.0); MEAN PLATELET VOLUME 7.8 fL (7.4-11.0); MONOCYTES # (AUTO) 0.7 x10^3/uL (0.3-0.8); MONOCYTES % (AUTO) 14.7 % (0.0-13.0); NEUTROPHILS # (AUTO) 2.5 x10^3/uL (2.2-4.8); NEUTROPHILS % (AUTO) 51.6 % (42.0-75.0); PLATELET COUNT 240 X10^3/uL (150.0-450.0); RED BLOOD COUNT 2.27 X10^6/uL (3.5-5.4); RED CELL DISTRIBUTION WIDTH 14.4 % (11.6-16.5); WHITE BLOOD COUNT 4.9 X10^3/uL (3.6-10.0)
[2020-01-05 05:49] LABS: PLATELET MORPHOLOGY COMMENT NORMAL (NORMAL)
[2020-01-05 05:50] LABS: ALBUMIN 2.5 g/dL (3.4-5.0); CALCIUM 8.8 mg/dL (8.5-10.1); CARBON DIOXIDE 20.3 mmol/L (21-32); CREATININE 1.95 mg/dL (0.55-1.02); TOTAL PROTEIN 5.3 g/dL (6.4-8.2)
[2020-01-05] MEDS: APRESOLINE TAB 25 MG PO SCH ×3 (06:13→21:17)
[2020-01-05] MEDS: ZOSYN VIAL 2.25 GRAMS 2.25 G in NS 100 ML IV + SPIKE MINIBAG* 100 ML IV SCH ×3 (06:13→21:18)
[2020-01-05] MEDS: NS 1000 ML 1,000 ML IV SCH ×3 (06:13→21:00)
[2020-01-05] MEDS: NORCO 5/325 MG TAB PO PRN ×3 (06:14→18:55)
--- NOTE | 2020-01-05 06:27 | RAD ---
HISTORYShortness of breathSTUDYCHEST, 1 [id number]/16/2020FINDINGSHeart is enlarged. No definite congestive heart failure is noted. The lungs are generally hyperinflated. No definite alveolar infiltrates are identified. New haziness in the right lower lung field may be related to developing right pleural effusion. There is now a left pleural effusion present. Bony thorax is unremarkable.IMPRESSIONMild cardiomegaly without definite congestive heart failureHaziness in both lower hemithoraces may be due to developing pleural effusionsGeneralized hyperinflationElectronically signed by: JOSEPHINE ASHFORD (Jan 05, 2020 06:25:09)
[2020-01-05] MEDS: ALBUMIN HUMAN 25%- 100 ML 100 ML IV SCH ×2 (08:02→21:00)
[2020-01-05] MEDS: MICRO K EXTEN CAP 10 MEQ PO SCH (08:47)
[2020-01-05] MEDS: COLACE CAP 100 MG PO SCH ×2 (08:48→21:14)
[2020-01-05] MEDS: HEMOCYTE-PLUS PO SCH (08:48)
[2020-01-05] MEDS: FOLIC ACID TAB 1 MG PO SCH (08:48)
[2020-01-05] MEDS: PROTONIX INJ 40 MG VIAL IVP SCH ×2 (08:48→21:18)
--- NOTE | 2020-01-05 08:48 | PCM.PROG ---
Progress Note - Progress Note for Day of Date of Exam: 01/04/20 - Subjective Subjective: WAS ADMITTED FOR NEW ONSET A-FIB WITH RVR, UROSEPSIS, AND ALTERED MENTAL STATUS. SHE HAS SINCE CONVERTED TO NORMAL SINUS RHYTHM, BUT SHE HAS REMAINED HYPERTENSIVE OVER THE WEEKEND. HER COREG, HYDRALAZINE, AND NIFEDIPINE WERE INCREASED. TODAY, SHE IS ALERT AND ORIENTED, LYING IN BED ON MORNING ROUNDS. SHE REPORTS WEAKNESS. ON EXAMINATION, HEART IS REGULAR IN RATE AND RHYTHM. HER LUNGS ARE NOTED WITH DIMINISHED LUNG SOUNDS THROUGHOUT. ABDOMEN IS FLAT, SOFT, AND NON-TENDER. NORMAL BOWEL SOUNDS ARE NOTED IN ALL QUADRANTS. HER VITALS THIS MORNING ARE: 98.1-94-25-93%NC-168/74. LABS WERE OBTAINED. ABNORMAL LAB VALUES INCLUDE THE FOLLOWING: RBC 2.61, HGB 8.5, HCT 23.7, POTASSIUM 3.4, CHLORIDE 111, CARBON DIOXIDE 19.3, CREATININE 1.95, GLUCOSE 100, AST 12, ALK PHOS 31, TOTAL PROTEIN 5.4, ALBUMIN 1.9. A CHEST XRAY WAS OBTAINED AND REVEALED: Cardiomegaly without congestive heart failure. Lungs hyperinflated but free of acute infiltrates. SHE IS CURRENTLY RECEIVING HYDRALAZINE 100MG PO TID, COREG 25MG PO BID, NIFEDIPINE 90MG PO DAILY, LOSARTAN 100MG PO HS, A NITRO PATCH, HUMULIN R SLIDING SCALE, NS AT 125ML/HR, NEB TX, ZOSYN 2.25G IV TID, AND THE POTASSIUM AND MAGNESIUM PROTOCOLS. TODAY, WE WILL START ALBUMIN 25% IV BID AND LASIX 20MG IV X 1 DOSE. OTHERWISE, WE WILL FOLLOW UP WITH AM LABS AND CONTINUE TO MONITOR. - Past Medical Family Social History Past Med/Fam/Surg Hx: No changes since H&P Allergies: Allergies meperidine [From Demerol] Allergy (Verified 03/20/19 11:20) - Review of Systems ROS: No change since H&P - Vital Signs and I&O's Vital Signs: Temperature 98.6 F Pulse Rate 94 Respiratory Rate 25 Blood Pressure [Left Arm] 197/83 Blood Pressure 179/74 O2 Sat by Pulse Oximetry 95 Intake and Output: Intake & Output 01/02/20 01/03/20 01/04/20 01/05/20 11:59 11:59 11:59 11:59 Intake Total 2337 / 2337 1920 / 1920 3122 / 3122 2360 / 2360 Output Total 1800 / 1800 1200 / 1200 1025 / 1025 825 / 825 Balance 537 / 537 720 / 720 2097 / 2097 1535 / 1535 - Physical Exam Oriented: Normal Eyes: Normal Ear: Normal Nose: Normal Throat: Normal Respiratory: Generalized, Diminished Cardiovascular: Normal, Bradycardia. negative: S3, S4, Murmur : Normal Auscultation: Bowel Sounds: Normal Palpation: Normal Tenderness: Normal Skin: Normal Musculoskeletal: Normal Psychiatric: Normal Mood Description: Calm Affect: Normal Speech Pattern: Clear - Laboratory and Diagnostics Result Diagrams: 01/05/20 03:52 01/05/20 03:52 Labs: 12/28/19 13:00 Blood Blood Culture - Final 12/28/19 13:39 Blood Blood Culture - Final 12/28/19 23:50 Urine,Catheterized Urine Culture - Final Laboratory WBC 4.9 X10^3/uL (3.6-10.0) 01/05/20 03:52 RBC 2.27 X10^6/uL (3.5-5.4) L 01/05/20 03:52 Hgb 7.3 g/dL (12.0-16.0) L 01/05/20 03:52 Hct 20.8 % (36.0-47.0) L 01/05/20 03:52 MCV 91.5 fL (80.0-100.0) 01/05/20 03:52 MCH 32.3 pg (27.0-34.0) 01/05/20 03:52 MCHC 35.3 g/dL (33.0-35.0) H 01/05/20 03:52 RDW 14.4 % (11.6-16.5) 01/05/20 03:52 Plt Count 240 X10^3/uL (150.0-450.0) 01/05/20 03:52 Plt Count Comment Adequate (ADEQUATE) 01/05/20 03:52 MPV 7.8 fL (7.4-11.0) 01/05/20 03:52 Neut % (Auto) 51.6 % (42.0-75.0) 01/05/20 03:52 Lymph % (Auto) 29.0 % (21.0-51.0) 01/05/20 03:52 [place] % (Auto) 14.7 % (0.0-13.0) H 01/05/20 03:52 Eos % (Auto) 3.8 % (0.9-2.9) H 01/05/20 03:52 Baso % (Auto) 0.9 % (0.2-1.0) 01/05/20 03:52 Neut # (Auto) 2.5 x10^3/uL (2.2-4.8) 01/05/20 03:52 Lymph # (Auto) 1.4 X10^3/uL (1.3-2.9) 01/05/20 03:52 [place] # (Auto) 0.7 x10^3/uL (0.3-0.8) 01/05/20 03:52 Eos # (Auto) 0.2 x10^3/uL (0.0-0.2) 01/05/20 03:52 Baso # (Auto) 0.0 X10^3/uL (0.0-0.1) 01/05/20 03:52 Absolute Nucleated RBC 0.1 /100WBC 01/05/20 03:52 Plt Morphology Comment Normal (NORMAL) 01/05/20 03:52 RBC Morphology Normal (NORMAL) 01/05/20 03:52 PT 15.7 SECONDS (11.8-14.3) 12/29/19 04:38 INR Target Range - 12/29/19 04:38 INR 1.30 (0.8-1.3) 12/29/19 04:38 APTT 29.4 SECONDS (22.9-36.5) 12/29/19 04:38 PTT Comment - 12/29/19 04:38 Sodium 141 mmol/L (136-145) 01/05/20 03:52 Corrected Sodium 141 mmol/L (136-145) 01/05/20 03:52 Potassium 3.2 mmol/L (3.5-5.1) L 01/05/20 03:52 Chloride 110 mmol/L (98-107) H 01/05/20 03:52 Carbon Dioxide 20.3 mmol/L (21-32) L 01/05/20 03:52 BUN 13 mg/dL (7-18) 01/05/20 03:52 Creatinine 1.95 mg/dL (0.55-1.02) H 01/05/20 03:52 Est GFR (MDRD) Af Amer 31 (>60) L 01/05/20 03:52 Est GFR (MDRD) Non-Af 26 (>60) L 01/05/20 03:52 Glucose 111 mg/dL (65-99) H 01/05/20 03:52 POC Glucose (mg/dL) 98 mg/dL (65-99) 01/05/20 06:06 Lactic Acid 0.8 mmol/L (0.4-2.0) 12/30/19 08:59 Calcium 8.8 mg/dL (8.5-10.1) 01/05/20 03:52 Corrected Calcium 10.0 mg/dL (8.5-10.1) 01/05/20 03:52 Magnesium 1.8 mg/dL (1.7-2.9) 01/04/20 05:03 Iron 19 ug/dL (50-175) L 01/01/20 08:57 Transferrin 121 mg/dL (202-364) L 01/01/20 08:57 Ferritin 211 ng/mL (8-252) 01/01/20 08:57 Total Bilirubin 0.20 mg/dL (0.2-1.0) 01/05/20 03:52 AST 7 Units/L (15-37) L 01/05/20 03:52 ALT 12 Units/L (12-78) 01/05/20 03:52 Alkaline Phosphatase 36 Units/L (46-116) L 01/05/20 03:52 Creatine Kinase 157 Units/L (26-192) 12/29/19 04:38 CK-MB (CK-2) < 1.0 ng/mL (0-4.0) 12/29/19 04:38 CK/CKMB % Calc 0.6 % (<4) 12/29/19 04:38 Troponin I 0.10 ng/mL (0-1.5) 12/29/19 04:38 Total Protein 5.3 g/dL (6.4-8.2) L 01/05/20 03:52 Albumin 2.5 g/dL (3.4-5.0) L 01/05/20 03:52 Globulin 2.8 g/dL (2.5-4.5) 01/05/20 03:52 Albumin/Globulin Ratio 0.9 Ratio (1.1-2.1) L 01/05/20 03:52 Vitamin B12 267 pg/mL (193-986) 01/01/20 08:57 Folate > 20.0 ng/mL (>8.6) 01/01/20 08:57 Specimen Type Catherized urine 12/28/19 23:50 Urine Color Yellow (YELLOW) 12/28/19 23:50 Urine Appearance Cloudy (CLEAR) 12/28/19 23:50 Urine pH 8.0 (5.0 - 8.0) 12/28/19 23:50 Ur Specific [place] 1.010 (1.000-1.030) 12/28/19 23:50 Urine Protein 4+ (NEGATIVE) 12/28/19 23:50 Urine Glucose (UA) 1+ (NEGATIVE) 12/28/19 23:50 Urine Ketones 2+ (NEGATIVE) 12/28/19 23:50 Urine Occult Blood 2+ (NEGATIVE) 12/28/19 23:50 Urine Nitrite Negative (NEGATIVE) 12/28/19 23:50 Urine Bilirubin Negative (NEGATIVE) 12/28/19 23:50 Urine Urobilinogen Normal (NORMAL) 12/28/19 23:50 Ur Leukocyte Esterase 3+ (NEGATIVE) 12/28/19 23:50 Urine RBC 0-2 /HPF (0-3) 12/28/19 23:50 Urine WBC 10-20 /HPF (0-5) A 12/28/19 23:50 Ur Squamous Epith Cells Rare /HPF (NEGATIVE) 12/28/19 23:50 Urine Bacteria Trace /HPF (NEGATIVE) 12/28/19 23:50 Coarse Granular Casts Few /HPF (NEGATIVE) 12/28/19 14:08 Ur Culture Indicated? Yes/culture set up 12/28/19 23:50 Stool Description 50 grs brn loose 01/01/20 09:29 Stl Occult Blood (IFOB) Positive (NEGATIVE) A 01/01/20 09:29 Blood Type O POSITIVE 12/30/19 08:38 Antibody Screen Negative 12/30/19 08:38 Crossmatch See Detail 12/30/19 08:38 - Plan (1) New onset a-fib Status: Resolved (2) Sepsis Status: Acute Qualifiers: Sepsis type: sepsis due to unspecified organism Sepsis acute organ dysfunction status: unspecified Qualified Code(s): A41.9 - Sepsis, unspecified organism Plan: ZOSYN 2.25G IV TID, IV FLUIDS, CONTINUE TO MONITOR (3) Urinary tract infection Status: Acute Qualifiers: Urinary tract infection type: acute cystitis Hematuria presence: without hematuria Qualified Code(s): N30.00 - Acute cystitis without hematuria Plan: ZOSYN 2.25G IV TID, CONTINUE TO MONITOR (4) Acute renal failure Status: Acute Qualifiers: Acute renal failure type: unspecified Qualified Code(s): N17.9 - Acute kidney failure, unspecified Plan: OBTAIN RENAL US, IV HYDRATION, CONTINUE TO MONITOR (5) Altered mental status Status: Acute Qualifiers: Altered mental status type: transient alteration of awareness (6) Hypertension Status: Chronic Qualifiers: Hypertension type: essential hypertension Qualified Code(s): I10 - Essential (primary) hypertension Plan: COREG 25MG PO BID, HYDRALAZINE 100MG PO TID, NIFEDIPINE 90MG PO DAILY, LOSARTAN 100MG PO HS, A NITRO PATCH, CONTINUE TO MONITOR
[2020-01-05] MEDS: ELAVIL PO SCH (08:49)
[2020-01-05] MEDS: COREG TAB 6.25 MG PO SCH ×2 (08:49→21:15)
[2020-01-05] MEDS: PROCARDIA XL 24-hr PO SCH (08:50)
[2020-01-05] MEDS: NIASPAN ER TAB 500 MG PO SCH (08:53)
[2020-01-05] MEDS: PULMICORT NEB TX 0.5 MG NEB SCH ×2 (09:24→21:22)
[2020-01-05] MEDS: NITRODUR PATCH 0.4 MG/HR TD SCH (09:24)
[2020-01-05] MEDS ORDERED: LASIX IVP ONE (09:41)
[2020-01-05] MEDS ORDERED: TYLENOL 325 MG TAB PO ONE (09:42)
[2020-01-05] MEDS ORDERED: BENADRYL INJ 50 MG VIAL IVP ONE (09:42)
--- NOTE | 2020-01-05 10:15 | PCM.PROG ---
Progress Note - Progress Note for Day of Date of Exam: 01/05/20 - Subjective Subjective: WAS ADMITTED FOR NEW ONSET A-FIB WITH RVR, UROSEPSIS, AND ALTERED MENTAL STATUS. TODAY, SHE IS ALERT AND ORIENTED, LYING IN BED ON MORNING ROUNDS. SHE REPORTS WEAKNESS. SHE CONTINUES TO BE HYPERTENSIVE. ON EXAMINATION, HEART IS REGULAR IN RATE AND RHYTHM. HER LUNGS ARE NOTED WITH DIMINISHED LUNG SOUNDS THROUGHOUT. ABDOMEN IS FLAT, SOFT, AND NON-TENDER. NORMAL BOWEL SOUNDS ARE NOTED IN ALL QUADRANTS. HER VITALS THIS MORNING ARE: 98.8-96-24-98%-192/80. LABS WERE OBTAINED. ABNORMAL LAB VALUES INCLUDE THE FOLLOWING: RBC 22.27, HGB 7.3, HCT 20.8, POTASSIUM 3.2, CHLORIDE 110, CARBON DIOXIDE 20.3, CREATININE 1.5, GLUCOSE 111, AST 7, ALK PHOS 36, TOTAL PROTEIN 5.3, ALBUMIN 2.5. A CHEST XRAY WAS OBTAINED AND REVEALED: Mild cardiomegaly without definite congestive heart failure. Haziness in both lower hemithoraces may be due to developing pleural effusions. Generalized hyperinflation. SHE IS CURRENTLY RECEIVING HYDRALAZINE 100MG PO TID, COREG 25MG PO BID, NIFEDIPINE 90MG PO DAILY, LOSARTAN 100MG PO HS, A NITRO PATCH, HUMULIN R SLIDING SCALE, NS AT 125ML/HR, NEB TX, ZOSYN 2.25G IV TID, ALBUMIN 25% IV BID, AND THE POTASSIUM AND MAGNESIUM PROTOCOLS. TODAY, WE WILL TRANSFUSE ONE UNIT OF PRBC. WE WILL GIVEN LASIX 20MG IV PRIOR TO INFUSION AND AFTER. OTHERWISE, WE WILL FOLLOW UP WITH AM LABS AND CONTINUE TO MONITOR. - Past Medical Family Social History Past Med/Fam/Surg Hx: No changes since H&P Allergies: Allergies meperidine [From Demerol] Allergy (Verified 03/20/19 11:20) - Review of Systems ROS: No change since H&P - Vital Signs and I&O's Vital Signs: Temperature 98.8 F Pulse Rate 87 Respiratory Rate 26 Blood Pressure [Left Arm] 197/83 Blood Pressure 175/76 O2 Sat by Pulse Oximetry 98 Intake and Output: Intake & Output 01/02/20 01/03/20 01/04/20 01/05/20 11:59 11:59 11:59 11:59 Intake Total 2337 / 2337 1920 / 1920 3122 / 3122 2360 / 2360 Output Total 1800 / 1800 1200 / 1200 1025 / 1025 825 / 825 Balance 537 / 537 720 / 720 2097 / 2097 1535 / 1535 - Physical Exam Oriented: Normal Eyes: Normal Ear: Normal Nose: Normal Throat: Normal Respiratory: Generalized, Diminished Cardiovascular: Normal, Bradycardia. negative: S3, S4, Murmur : Normal Auscultation: Bowel Sounds: Normal Palpation: Normal Tenderness: Normal Skin: Normal Musculoskeletal: Normal Psychiatric: Normal Mood Description: Calm Affect: Normal Speech Pattern: Clear - Laboratory and Diagnostics Result Diagrams: 01/05/20 03:52 01/05/20 03:52 Labs: 12/28/19 13:00 Blood Blood Culture - Final 12/28/19 13:39 Blood Blood Culture - Final 12/28/19 23:50 Urine,Catheterized Urine Culture - Final Laboratory WBC 4.9 X10^3/uL (3.6-10.0) 01/05/20 03:52 RBC 2.27 X10^6/uL (3.5-5.4) L 01/05/20 03:52 Hgb 7.3 g/dL (12.0-16.0) L 01/05/20 03:52 Hct 20.8 % (36.0-47.0) L 01/05/20 03:52 MCV 91.5 fL (80.0-100.0) 01/05/20 03:52 MCH 32.3 pg (27.0-34.0) 01/05/20 03:52 MCHC 35.3 g/dL (33.0-35.0) H 01/05/20 03:52 RDW 14.4 % (11.6-16.5) 01/05/20 03:52 Plt Count 240 X10^3/uL (150.0-450.0) 01/05/20 03:52 Plt Count Comment Adequate (ADEQUATE) 01/05/20 03:52 MPV 7.8 fL (7.4-11.0) 01/05/20 03:52 Neut % (Auto) 51.6 % (42.0-75.0) 01/05/20 03:52 Lymph % (Auto) 29.0 % (21.0-51.0) 01/05/20 03:52 [place] % (Auto) 14.7 % (0.0-13.0) H 01/05/20 03:52 Eos % (Auto) 3.8 % (0.9-2.9) H 01/05/20 03:52 Baso % (Auto) 0.9 % (0.2-1.0) 01/05/20 03:52 Neut # (Auto) 2.5 x10^3/uL (2.2-4.8) 01/05/20 03:52 Lymph # (Auto) 1.4 X10^3/uL (1.3-2.9) 01/05/20 03:52 [place] # (Auto) 0.7 x10^3/uL (0.3-0.8) 01/05/20 03:52 Eos # (Auto) 0.2 x10^3/uL (0.0-0.2) 01/05/20 03:52 Baso # (Auto) 0.0 X10^3/uL (0.0-0.1) 01/05/20 03:52 Absolute Nucleated RBC 0.1 /100WBC 01/05/20 03:52 Plt Morphology Comment Normal (NORMAL) 01/05/20 03:52 RBC Morphology Normal (NORMAL) 01/05/20 03:52 PT 15.7 SECONDS (11.8-14.3) 12/29/19 04:38 INR Target Range - 12/29/19 04:38 INR 1.30 (0.8-1.3) 12/29/19 04:38 APTT 29.4 SECONDS (22.9-36.5) 12/29/19 04:38 PTT Comment - 12/29/19 04:38 Sodium 141 mmol/L (136-145) 01/05/20 03:52 Corrected Sodium 141 mmol/L (136-145) 01/05/20 03:52 Potassium 3.2 mmol/L (3.5-5.1) L 01/05/20 03:52 Chloride 110 mmol/L (98-107) H 01/05/20 03:52 Carbon Dioxide 20.3 mmol/L (21-32) L 01/05/20 03:52 BUN 13 mg/dL (7-18) 01/05/20 03:52 Creatinine 1.95 mg/dL (0.55-1.02) H 01/05/20 03:52 Est GFR (MDRD) Af Amer 31 (>60) L 01/05/20 03:52 Est GFR (MDRD) Non-Af 26 (>60) L 01/05/20 03:52 Glucose 111 mg/dL (65-99) H 01/05/20 03:52 POC Glucose (mg/dL) 98 mg/dL (65-99) 01/05/20 06:06 Lactic Acid 0.8 mmol/L (0.4-2.0) 12/30/19 08:59 Calcium 8.8 mg/dL (8.5-10.1) 01/05/20 03:52 Corrected Calcium 10.0 mg/dL (8.5-10.1) 01/05/20 03:52 Magnesium 1.8 mg/dL (1.7-2.9) 01/04/20 05:03 Iron 19 ug/dL (50-175) L 01/01/20 08:57 Transferrin 121 mg/dL (202-364) L 01/01/20 08:57 Ferritin 211 ng/mL (8-252) 01/01/20 08:57 Total Bilirubin 0.20 mg/dL (0.2-1.0) 01/05/20 03:52 AST 7 Units/L (15-37) L 01/05/20 03:52 ALT 12 Units/L (12-78) 01/05/20 03:52 Alkaline Phosphatase 36 Units/L (46-116) L 01/05/20 03:52 Creatine Kinase 157 Units/L (26-192) 12/29/19 04:38 CK-MB (CK-2) < 1.0 ng/mL (0-4.0) 12/29/19 04:38 CK/CKMB % Calc 0.6 % (<4) 12/29/19 04:38 Troponin I 0.10 ng/mL (0-1.5) 12/29/19 04:38 Total Protein 5.3 g/dL (6.4-8.2) L 01/05/20 03:52 Albumin 2.5 g/dL (3.4-5.0) L 01/05/20 03:52 Globulin 2.8 g/dL (2.5-4.5) 01/05/20 03:52 Albumin/Globulin Ratio 0.9 Ratio (1.1-2.1) L 01/05/20 03:52 Vitamin B12 267 pg/mL (193-986) 01/01/20 08:57 Folate > 20.0 ng/mL (>8.6) 01/01/20 08:57 Specimen Type Catherized urine 12/28/19 23:50 Urine Color Yellow (YELLOW) 12/28/19 23:50 Urine Appearance Cloudy (CLEAR) 12/28/19 23:50 Urine pH 8.0 (5.0 - 8.0) 12/28/19 23:50 Ur Specific [place] 1.010 (1.000-1.030) 12/28/19 23:50 Urine Protein 4+ (NEGATIVE) 12/28/19 23:50 Urine Glucose (UA) 1+ (NEGATIVE) 12/28/19 23:50 Urine Ketones 2+ (NEGATIVE) 12/28/19 23:50 Urine Occult Blood 2+ (NEGATIVE) 12/28/19 23:50 Urine Nitrite Negative (NEGATIVE) 12/28/19 23:50 Urine Bilirubin Negative (NEGATIVE) 12/28/19 23:50 Urine Urobilinogen Normal (NORMAL) 12/28/19 23:50 Ur Leukocyte Esterase 3+ (NEGATIVE) 12/28/19 23:50 Urine RBC 0-2 /HPF (0-3) 12/28/19 23:50 Urine WBC 10-20 /HPF (0-5) A 12/28/19 23:50 Ur Squamous Epith Cells Rare /HPF (NEGATIVE) 12/28/19 23:50 Urine Bacteria Trace /HPF (NEGATIVE) 12/28/19 23:50 Coarse Granular Casts Few /HPF (NEGATIVE) 12/28/19 14:08 Ur Culture Indicated? Yes/culture set up 12/28/19 23:50 Stool Description 50 grs brn loose 01/01/20 09:29 Stl Occult Blood (IFOB) Positive (NEGATIVE) A 01/01/20 09:29 Blood Type O POSITIVE 12/30/19 08:38 Antibody Screen Negative 12/30/19 08:38 Crossmatch See Detail 12/30/19 08:38 - Plan (1) New onset a-fib Status: Resolved (2) Sepsis Status: Acute Qualifiers: Sepsis type: sepsis due to unspecified organism Sepsis acute organ dysfunction status: unspecified Qualified Code(s): A41.9 - Sepsis, unspecified organism Plan: ZOSYN 2.25G IV TID, IV FLUIDS, CONTINUE TO MONITOR (3) Urinary tract infection Status: Acute Qualifiers: Urinary tract infection type: acute cystitis Hematuria presence: without hematuria Qualified Code(s): N30.00 - Acute cystitis without hematuria Plan: ZOSYN 2.25G IV TID, CONTINUE TO MONITOR (4) Acute renal failure Status: Acute Qualifiers: Acute renal failure type: unspecified Qualified Code(s): N17.9 - Acute kidney failure, unspecified Plan: IV HYDRATION, CONTINUE TO MONITOR (5) Hypertension Status: Chronic Qualifiers: Hypertension type: essential hypertension Qualified Code(s): I10 - Essential (primary) hypertension Plan: COREG 25MG PO BID, HYDRALAZINE 100MG PO TID, NIFEDIPINE 90MG PO DAILY, LOSARTAN 100MG PO HS, A NITRO PATCH, CONTINUE TO MONITOR (6) Anemia Status: Acute Qualifiers: Anemia type: iron deficiency Iron deficiency anemia type: chronic blood loss Qualified Code(s): D50.0 - Iron deficiency anemia secondary to blood loss (chronic) Plan: TRANSFUSE 1 UNIT PRBC, CONTINUE TO MONITOR (7) Altered mental status Status: Resolved Qualifiers: Altered mental status type: transient alteration of awareness
[2020-01-05] MEDS ORDERED: NS 250 ML IV 250 ML IV ONE (10:39)
[2020-01-05] MEDS ORDERED: LASIX ONE (14:55)
[2020-01-05] MEDS: LASIX IVP ONE (14:56)
[2020-01-05 15:46] LABS: HEMATOCRIT 27.1 % (36.0-47.0); HEMOGLOBIN 9.5 g/dL (12.0-16.0)
[2020-01-05] MEDS: SNACK - Diabetic Appropriate PO SCH (20:00)
[2020-01-05] MEDS: LANTUS SC SCH (21:00)
[2020-01-05] MEDS: COZAAR PO SCH (21:15)
[2020-01-05] MEDS: LIPITOR TAB 40 MG PO SCH (21:16)
[2020-01-06] MEDS: NORCO 5/325 MG TAB PO PRN ×3 (01:17→16:32)
[2020-01-06] MEDS: PROVENTIL NEB TX 0.083% 2.5MG/ 3ML NEB SCH ×3 (06:00→20:48)
[2020-01-06 06:07] LABS: BASOPHILS # (AUTO) 0.1 X10^3/uL (0.0-0.1); BASOPHILS % (AUTO) 1.2 % (0.2-1.0); EOSINOPHILS # (AUTO) 0.2 x10^3/uL (0.0-0.2); EOSINOPHILS % (AUTO) 3.3 % (0.9-2.9); HEMATOCRIT 26.2 % (36.0-47.0); HEMOGLOBIN 9.3 g/dL (12.0-16.0); LYMPHOCYTES # (AUTO) 1.8 X10^3/uL (1.3-2.9); LYMPHOCYTES % (AUTO) 31.2 % (21.0-51.0); MEAN CORPUSCULAR HEMOGLOBIN 32.7 pg (27.0-34.0); MEAN CORPUSCULAR HGB CONC 35.5 g/dL (33.0-35.0); MEAN CORPUSCULAR VOLUME 92.2 fL (80.0-100.0); MEAN PLATELET VOLUME 7.5 fL (7.4-11.0); MONOCYTES # (AUTO) 0.7 x10^3/uL (0.3-0.8); MONOCYTES % (AUTO) 12.6 % (0.0-13.0); NEUTROPHILS % (AUTO) 51.7 % (42.0-75.0); PLATELET COUNT 284 X10^3/uL (150.0-450.0); RED BLOOD COUNT 2.85 X10^6/uL (3.5-5.4); RED CELL DISTRIBUTION WIDTH 14.5 % (11.6-16.5); WHITE BLOOD COUNT 5.7 X10^3/uL (3.6-10.0)
[2020-01-06 06:08] LABS: ALANINE AMINOTRANSFERASE 15 Units/L (12-78); ALBUMIN 3.1 g/dL (3.4-5.0); ALKALINE PHOSPHATASE 29 Units/L (46-116); ASPARTATE AMINO TRANSFERASE 12 Units/L (15-37); BLOOD UREA NITROGEN 16 mg/dL (7-18); CALCIUM 9.1 mg/dL (8.5-10.1); CARBON DIOXIDE 22.3 mmol/L (21-32); CHLORIDE 108 mmol/L (98-107); COR CA(FOR HYPOALB) 9.8 mg/dL (8.5-10.1); CREATININE 1.94 mg/dL (0.55-1.02); SODIUM 140 mmol/L (136-145); TOTAL PROTEIN 5.8 g/dL (6.4-8.2); eGFR NON BLACK RACES 26 (>60)
[2020-01-06] MEDS: ZOSYN VIAL 2.25 GRAMS 2.25 G in NS 100 ML IV + SPIKE MINIBAG* 100 ML IV SCH ×3 (06:13→22:00)
[2020-01-06] MEDS: APRESOLINE TAB 25 MG PO SCH ×3 (06:13→22:00)
--- NOTE | 2020-01-06 07:26 | RAD ---
HISTORYShortness of breathSTUDYCHEST, 1 [id number] examination is underpenetrated. The heart is enlarged. No definite congestive heart failure identified. No definite acute alveolar infiltrates identified. Haziness again identified of both lung bases possibly due to pleural effusions and unchanged. The lungs are generally hyperinflated. Bony thorax is unremarkable.IMPRESSIONMild cardiomegaly without congestive heart failureHyperinflationHaziness the lung bases may be due to developing pleural effusions. The appearance is unchanged from the prior examinationElectronically signed by: JOSEPHINE ASHFORD (Jan 06, 2020 07:24:50)
[2020-01-06] MEDS: ALBUMIN HUMAN 25%- 100 ML 100 ML IV SCH (09:29)
[2020-01-06] MEDS: PROTONIX INJ 40 MG VIAL IVP SCH ×2 (09:30→20:49)
[2020-01-06] MEDS: ELAVIL PO SCH (09:30)
[2020-01-06] MEDS: FOLIC ACID TAB 1 MG PO SCH (09:34)
[2020-01-06] MEDS: HEMOCYTE-PLUS PO SCH (09:34)
[2020-01-06] MEDS: COLACE CAP 100 MG PO SCH ×2 (09:34→20:50)
[2020-01-06] MEDS: COREG TAB 6.25 MG PO SCH ×2 (09:34→20:50)
[2020-01-06] MEDS: MICRO K EXTEN CAP 10 MEQ PO SCH (09:34)
[2020-01-06] MEDS: NITRODUR PATCH 0.4 MG/HR TD SCH (09:35)
[2020-01-06] MEDS: PROCARDIA XL 24-hr PO SCH (09:35)
[2020-01-06] MEDS: NIASPAN ER TAB 500 MG PO SCH (09:35)
[2020-01-06] MEDS: PULMICORT NEB TX 0.5 MG NEB SCH ×2 (09:40→20:48)
[2020-01-06] MEDS: NS 1000 ML 1,000 ML IV SCH ×2 (09:41→21:10)
[2020-01-06] MEDS: LASIX IVP SCH ×2 (10:39→16:22)
[2020-01-06] MEDS: K-DUR TAB 20 MEQ PO PRN (12:29)
[2020-01-06] MEDS: MAGNESIUM SULFATE 1 GRAM/100 mL PREMIX 1 GM/100 ML BAG IV PRN ×2 (12:30→13:33)
[2020-01-06] MEDS: COZAAR PO SCH (20:50)
[2020-01-06] MEDS: LIPITOR TAB 40 MG PO SCH (20:51)
[2020-01-06] MEDS: SNACK - Diabetic Appropriate PO SCH (20:56)
[2020-01-06] MEDS: LANTUS SC SCH (21:09)
[2020-01-07] MEDS: PROVENTIL NEB TX 0.083% 2.5MG/ 3ML NEB SCH ×3 (05:03→20:00)
[2020-01-07 05:24] LABS: BASOPHILS # (AUTO) 0.1 X10^3/uL (0.0-0.1); BASOPHILS % (AUTO) 1.1 % (0.2-1.0); EOSINOPHILS # (AUTO) 0.2 x10^3/uL (0.0-0.2); EOSINOPHILS % (AUTO) 3.2 % (0.9-2.9); HEMATOCRIT 25.8 % (36.0-47.0); HEMOGLOBIN 9.2 g/dL (12.0-16.0); LYMPHOCYTES # (AUTO) 1.6 X10^3/uL (1.3-2.9); LYMPHOCYTES % (AUTO) 31.3 % (21.0-51.0); MEAN CORPUSCULAR HEMOGLOBIN 32.9 pg (27.0-34.0); MEAN CORPUSCULAR HGB CONC 35.6 g/dL (33.0-35.0); MEAN CORPUSCULAR VOLUME 92.4 fL (80.0-100.0); MEAN PLATELET VOLUME 7.5 fL (7.4-11.0); MONOCYTES # (AUTO) 0.8 x10^3/uL (0.3-0.8); NEUTROPHILS # (AUTO) 2.6 x10^3/uL (2.2-4.8); NEUTROPHILS % (AUTO) 49.4 % (42.0-75.0); PLATELET COUNT 295 X10^3/uL (150.0-450.0); RED CELL DISTRIBUTION WIDTH 14.9 % (11.6-16.5); WHITE BLOOD COUNT 5.3 X10^3/uL (3.6-10.0)
[2020-01-07 05:32] LABS: ALANINE AMINOTRANSFERASE 12 Units/L (12-78); ALBUMIN 3.1 g/dL (3.4-5.0); ALKALINE PHOSPHATASE 35 Units/L (46-116); ASPARTATE AMINO TRANSFERASE 8 Units/L (15-37); BLOOD UREA NITROGEN 19 mg/dL (7-18); CALCIUM 9.6 mg/dL (8.5-10.1); CARBON DIOXIDE 24.4 mmol/L (21-32); CHLORIDE 108 mmol/L (98-107); COR CA(FOR HYPOALB) 10.3 mg/dL (8.5-10.1); CREATININE 2.19 mg/dL (0.55-1.02); SODIUM 141 mmol/L (136-145); TOTAL PROTEIN 5.9 g/dL (6.4-8.2); eGFR NON BLACK RACES 23 (>60)
[2020-01-07] MEDS: APRESOLINE TAB 25 MG PO SCH ×3 (06:01→21:06)
[2020-01-07] MEDS: ZOSYN VIAL 2.25 GRAMS 2.25 G in NS 100 ML IV + SPIKE MINIBAG* 100 ML IV SCH ×3 (06:02→21:06)
[2020-01-07] MEDS: PULMICORT NEB TX 0.5 MG NEB SCH ×2 (07:59→20:00)
--- NOTE | 2020-01-07 08:39 | PCM.PROG ---
Progress Note - Progress Note for Day of Date of Exam: 01/06/20 - Subjective Subjective: WAS ADMITTED FOR NEW ONSET A-FIB WITH RVR, UROSEPSIS, ANEMIA, HYPERTENSION, AND ALTERED MENTAL STATUS. SHE RECEIVED ONE UNIT OF PRBC YESTERDAY. TODAY, SHE IS ALERT AND ORIENTED, LYING IN BED ON MORNING ROUNDS. SHE REPORTS WEAKNESS AND SHORTNESS OF BREATH TODAY. HER BLOOD PRESSURE HAS BEEN BETTER CONTROLLED. ON EXAMINATION, HEART IS REGULAR IN RATE AND RHYTHM. HER LUNGS ARE NOTED WITH DIMINISHED LUNG SOUNDS THROUGHOUT. ABDOMEN IS FLAT, SOFT, AND NON-TENDER. NORMAL BOWEL SOUNDS ARE NOTED IN ALL QUADRANTS. HER VITALS THIS MORNING ARE: 97.9-96-24-95%-173/72. LABS WERE OBTAINED. ABNORMAL LAB VALUES INCLUDE THE FOLLOWING: RBC 2.85, HGB 9.3, HCT 26.2, POTASSIUM 3.2, CHLORIDE 108, CREATININE 1.94, MAGNESIUM 1.5, AST 12, ALK PHOS 29, TOTAL PROTEIN 5.8, ALBUMIN 3.1. A CHEST XRAY WAS OBTAINED AND REVEALED: Mild cardiomegaly without definite congestive heart failure. Haziness in both lower hemithoraces may be due to developing pleural effusions. Generalized hyperinflation. SHE IS CURRENTLY RECEIVING HYDRALAZINE 100MG PO TID, COREG 25MG PO BID, NIFEDIPINE 90MG PO DAILY, LOSARTAN 100MG PO HS, A NITRO PATCH, HUMULIN R SLIDING SCALE, NS AT 125ML/HR, NEB TX, ZOSYN 2.25G IV TID, ALBUMIN 25% IV BID, AND THE POTASSIUM AND MAGNESIUM PROTOCOLS. TODAY, WE WILL START LASIX 40MG IV Q12H AND RESTRICT FLUIDS TO 1,000ML OR LESS. OTHERWISE, WE WILL FOLLOW UP WITH AM LABS AND CONTINUE TO M ONITOR. - Past Medical Family Social History Past Med/Fam/Surg Hx: No changes since H&P Allergies: Allergies meperidine [From Demerol] Allergy (Verified 03/20/19 11:20) - Review of Systems ROS: No change since H&P - Vital Signs and I&O's Vital Signs: Temperature 98.9 F Pulse Rate 84 Respiratory Rate 14 Blood Pressure [Left Arm] 197/83 Blood Pressure 154/68 O2 Sat by Pulse Oximetry 96 Intake and Output: Intake & Output 01/04/20 01/05/20 01/06/20 01/07/20 11:59 11:59 11:59 11:59 Intake Total 3122 / 3122 2360 / 2360 2324 / 2324 2291 / 2291 Output Total 1025 / 1025 825 / 825 Balance 2096 / 2096 1535 / 1535 2324 / 2324 2291 / 2291 - Physical Exam Oriented: Normal Eyes: Normal Ear: Normal Nose: Normal Throat: Normal Respiratory: Generalized, Diminished Cardiovascular: Normal, Bradycardia. negative: S3, S4, Murmur : Normal Auscultation: Bowel Sounds: Normal Palpation: Normal Tenderness: Normal Skin: Normal Musculoskeletal: Normal Psychiatric: Normal Mood Description: Calm Affect: Normal Speech Pattern: Clear - Laboratory and Diagnostics Result Diagrams: 01/07/20 03:52 01/07/20 03:52 Labs: 12/28/19 13:00 Blood Blood Culture - Final 12/28/19 13:39 Blood Blood Culture - Final 12/28/19 23:50 Urine,Catheterized Urine Culture - Final Laboratory WBC 5.3 X10^3/uL (3.6-10.0) 01/07/20 03:52 RBC 2.80 X10^6/uL (3.5-5.4) L 01/07/20 03:52 Hgb 9.2 g/dL (12.0-16.0) L 01/07/20 03:52 Hct 25.8 % (36.0-47.0) L 01/07/20 03:52 MCV 92.4 fL (80.0-100.0) 01/07/20 03:52 MCH 32.9 pg (27.0-34.0) 01/07/20 03:52 MCHC 35.6 g/dL (33.0-35.0) H 01/07/20 03:52 RDW 14.9 % (11.6-16.5) 01/07/20 03:52 Plt Count 295 X10^3/uL (150.0-450.0) 01/07/20 03:52 Plt Count Comment Adequate (ADEQUATE) 01/05/20 03:52 MPV 7.5 fL (7.4-11.0) 01/07/20 03:52 Neut % (Auto) 49.4 % (42.0-75.0) 01/07/20 03:52 Lymph % (Auto) 31.3 % (21.0-51.0) 01/07/20 03:52 [place] % (Auto) 15.0 % (0.0-13.0) H 01/07/20 03:52 Eos % (Auto) 3.2 % (0.9-2.9) H 01/07/20 03:52 Baso % (Auto) 1.1 % (0.2-1.0) H 01/07/20 03:52 Neut # (Auto) 2.6 x10^3/uL (2.2-4.8) 01/07/20 03:52 Lymph # (Auto) 1.6 X10^3/uL (1.3-2.9) 01/07/20 03:52 [place] # (Auto) 0.8 x10^3/uL (0.3-0.8) 01/07/20 03:52 Eos # (Auto) 0.2 x10^3/uL (0.0-0.2) 01/07/20 03:52 Baso # (Auto) 0.1 X10^3/uL (0.0-0.1) 01/07/20 03:52 Absolute Nucleated RBC 0.1 /100WBC 01/07/20 03:52 Plt Morphology Comment Normal (NORMAL) 01/05/20 03:52 RBC Morphology Normal (NORMAL) 01/05/20 03:52 PT 15.7 SECONDS (11.8-14.3) 12/29/19 04:38 INR Target Range - 12/29/19 04:38 INR 1.30 (0.8-1.3) 12/29/19 04:38 APTT 29.4 SECONDS (22.9-36.5) 12/29/19 04:38 PTT Comment - 12/29/19 04:38 Sodium 141 mmol/L (136-145) 01/07/20 03:52 Corrected Sodium TNP 01/07/20 03:52 Potassium 4.2 mmol/L (3.5-5.1) 01/07/20 03:52 Chloride 108 mmol/L (98-107) H 01/07/20 03:52 Carbon Dioxide 24.4 mmol/L (21-32) 01/07/20 03:52 BUN 19 mg/dL (7-18) H 01/07/20 03:52 Creatinine 2.19 mg/dL (0.55-1.02) H 01/07/20 03:52 Est GFR (MDRD) Af Amer 27 (>60) L 01/07/20 03:52 Est GFR (MDRD) Non-Af 23 (>60) L 01/07/20 03:52 Glucose 101 mg/dL (65-99) H 01/07/20 03:52 POC Glucose (mg/dL) 88 mg/dL (65-99) 01/07/20 06:05 Lactic Acid 0.8 mmol/L (0.4-2.0) 12/30/19 08:59 Calcium 9.6 mg/dL (8.5-10.1) 01/07/20 03:52 Corrected Calcium 10.3 mg/dL (8.5-10.1) H 01/07/20 03:52 Iron 19 ug/dL (50-175) L 01/01/20 08:57 Magnesium 2.0 mg/dL (1.7-2.9) 01/07/20 03:52 Transferrin 121 mg/dL (202-364) L 01/01/20 08:57 Ferritin 211 ng/mL (8-252) 01/01/20 08:57 Total Bilirubin 0.30 mg/dL (0.2-1.0) 01/07/20 03:52 AST 8 Units/L (15-37) L 01/07/20 03:52 ALT 12 Units/L (12-78) 01/07/20 03:52 Alkaline Phosphatase 35 Units/L (46-116) L 01/07/20 03:52 Creatine Kinase 157 Units/L (26-192) 12/29/19 04:38 CK-MB (CK-2) < 1.0 ng/mL (0-4.0) 12/29/19 04:38 CK/CKMB % Calc 0.6 % (<4) 12/29/19 04:38 Troponin I 0.10 ng/mL (0-1.5) 12/29/19 04:38 Total Protein 5.9 g/dL (6.4-8.2) L 01/07/20 03:52 Albumin 3.1 g/dL (3.4-5.0) L 01/07/20 03:52 Globulin 2.8 g/dL (2.5-4.5) 01/07/20 03:52 Albumin/Globulin Ratio 1.1 Ratio (1.1-2.1) 01/07/20 03:52 Vitamin B12 267 pg/mL (193-986) 01/01/20 08:57 Folate > 20.0 ng/mL (>8.6) 01/01/20 08:57 Specimen Type Catherized urine 12/28/19 23:50 Urine Color Yellow (YELLOW) 12/28/19 23:50 Urine Appearance Cloudy (CLEAR) 12/28/19 23:50 Urine pH 8.0 (5.0 - 8.0) 12/28/19 23:50 Ur Specific [place] 1.010 (1.000-1.030) 12/28/19 23:50 Urine Protein 4+ (NEGATIVE) 12/28/19 23:50 Urine Glucose (UA) 1+ (NEGATIVE) 12/28/19 23:50 Urine Ketones 2+ (NEGATIVE) 12/28/19 23:50 Urine Occult Blood 2+ (NEGATIVE) 12/28/19 23:50 Urine Nitrite Negative (NEGATIVE) 12/28/19 23:50 Urine Bilirubin Negative (NEGATIVE) 12/28/19 23:50 Urine Urobilinogen Normal (NORMAL) 12/28/19 23:50 Ur Leukocyte Esterase 3+ (NEGATIVE) 12/28/19 23:50 Urine RBC 0-2 /HPF (0-3) 12/28/19 23:50 Urine WBC 10-20 /HPF (0-5) A 12/28/19 23:50 Ur Squamous Epith Cells Rare /HPF (NEGATIVE) 12/28/19 23:50 Urine Bacteria Trace /HPF (NEGATIVE) 12/28/19 23:50 Coarse Granular Casts Few /HPF (NEGATIVE) 12/28/19 14:08 Ur Culture Indicated? Yes/culture set up 12/28/19 23:50 Stool Description 50 grs brn loose 01/01/20 09:29 Stl Occult Blood (IFOB) Positive (NEGATIVE) A 01/01/20 09:29 Blood Type O POSITIVE 01/05/20 10:10 Antibody Screen Negative 01/05/20 10:10 Crossmatch See Detail 01/05/20 10:10 - Plan (1) New onset a-fib Status: Resolved (2) Sepsis Status: Resolved Qualifiers: Sepsis type: sepsis due to unspecified organism Sepsis acute organ dysfunction status: unspecified Qualified Code(s): A41.9 - Sepsis, unspecified organism Plan: ZOSYN 2.25G IV TID, IV FLUIDS, CONTINUE TO MONITOR (3) Urinary tract infection Status: Acute Qualifiers: Urinary tract infection type: acute cystitis Hematuria presence: without he maturia Qualified Code(s): N30.00 - Acute cystitis without hematuria Plan: ZOSYN 2.25G IV TID, CONTINUE TO MONITOR (4) Acute renal failure Status: Acute Qualifiers: Acute renal failure type: unspecified Qualified Code(s): N17.9 - Acute kidney failure, unspecified Plan: IV HYDRATION, CONTINUE TO MONITOR (5) Hypertension Status: Chronic Qualifiers: Hypertension type: essential hypertension Qualified Code(s): I10 - Essential (primary) hypertension Plan: COREG 25MG PO BID, HYDRALAZINE 100MG PO TID, NIFEDIPINE 90MG PO DAILY, LOSARTAN 100MG PO HS, A NITRO PATCH, CONTINUE TO MONITOR (6) Anemia Status: Acute Qualifiers: Anemia type: iron deficiency Iron deficiency anemia type: chronic blood loss Qualified Code(s): D50.0 - Iron deficiency anemia secondary to blood loss (chronic) Plan: CONTINUE TO MONITOR (7) Fluid overload Status: Acute Qualifiers: Hypervolemia type: unspecified Qualified Code(s): E87.70 - Fluid overload, unspecified Plan: LASIX 40MG IV Q12H, FLUID RESTRICTION, CONTINUE TO MONITOR
[2020-01-07] MEDS: ALBUMIN HUMAN 25%- 100 ML 100 ML IV SCH (09:45)
[2020-01-07] MEDS: PROTONIX INJ 40 MG VIAL IVP SCH ×2 (09:45→20:19)
[2020-01-07] MEDS: NITRODUR PATCH 0.4 MG/HR TD SCH (09:46)
[2020-01-07] MEDS: COREG TAB 6.25 MG PO SCH ×2 (09:46→20:18)
[2020-01-07] MEDS: PROCARDIA XL 24-hr PO SCH (09:47)
[2020-01-07] MEDS: ELAVIL PO SCH (09:47)
[2020-01-07] MEDS: MICRO K EXTEN CAP 10 MEQ PO SCH (09:47)
[2020-01-07] MEDS: HEMOCYTE-PLUS PO SCH (09:47)
[2020-01-07] MEDS: FOLIC ACID TAB 1 MG PO SCH (09:47)
[2020-01-07] MEDS: COLACE CAP 100 MG PO SCH ×2 (09:47→20:19)
[2020-01-07] MEDS: NIASPAN ER TAB 500 MG PO SCH (09:48)
--- NOTE | 2020-01-07 15:57 | RAD ---
HISTORYShortness of breathSTUDYCHEST, 1 [id number] heart is within normal limits in size. The lane[place] are normal. The lungs are generally hyperinflated. Haziness egg an identified in both lung bases possibly due to pleural effusions and unchanged. Bony thorax is unremarkable.IMPRESSIONHyperinflationHaziness in the lung bases bilaterally may be due to pleural fluid.Electronically signed by: JOSEPHINE ASHFORD (Jan 07, 2020 06:33:21)
[2020-01-07] MEDS: NORCO 5/325 MG TAB PO PRN (19:23)
[2020-01-07] MEDS: SNACK - Diabetic Appropriate PO SCH (20:17)
[2020-01-07] MEDS: COZAAR PO SCH (20:18)
[2020-01-07] MEDS: LIPITOR TAB 40 MG PO SCH (20:18)
[2020-01-07] MEDS: LANTUS SC SCH (20:19)
[2020-01-07] MEDS: HumuLIN R SC PRN (20:32)
[2020-01-08] MEDS: PROVENTIL NEB TX 0.083% 2.5MG/ 3ML NEB SCH ×2 (05:04→13:00)
--- NOTE | 2020-01-08 05:46 | RAD ---
HISTORYSOB, diabetesSTUDYAP [id number] heart is enlarged. The lung bases are obscured by diffuse indistinct density obscuring the diaphragm surfaces and costophrenic sulci. The upper lungs are relatively clear. There is no definite pneumothorax.IMPRESSIONCardiomegaly with bibasal opacity consistent with any combination of airspace disease and bilateral pleural effusions.Electronically signed by: ELANA KRAMER (Jan 08, 2020 05:45:15)
[2020-01-08] MEDS: APRESOLINE TAB 25 MG PO SCH ×2 (05:53→14:32)
[2020-01-08] MEDS: ZOSYN VIAL 2.25 GRAMS 2.25 G in NS 100 ML IV + SPIKE MINIBAG* 100 ML IV SCH ×2 (05:54→14:32)
[2020-01-08 06:01] LABS: BASOPHILS # (AUTO) 0.1 X10^3/uL (0.0-0.1); BASOPHILS % (AUTO) 1.1 % (0.2-1.0); EOSINOPHILS # (AUTO) 0.1 x10^3/uL (0.0-0.2); EOSINOPHILS % (AUTO) 1.8 % (0.9-2.9); HEMATOCRIT 26.5 % (36.0-47.0); HEMOGLOBIN 9.2 g/dL (12.0-16.0); LYMPHOCYTES # (AUTO) 1.8 X10^3/uL (1.3-2.9); LYMPHOCYTES % (AUTO) 28.6 % (21.0-51.0); MEAN CORPUSCULAR HEMOGLOBIN 32.8 pg (27.0-34.0); MEAN CORPUSCULAR HGB CONC 34.9 g/dL (33.0-35.0); MEAN CORPUSCULAR VOLUME 93.8 fL (80.0-100.0); MEAN PLATELET VOLUME 7.4 fL (7.4-11.0); MONOCYTES # (AUTO) 0.7 x10^3/uL (0.3-0.8); MONOCYTES % (AUTO) 11.1 % (0.0-13.0); NEUTROPHILS # (AUTO) 3.6 x10^3/uL (2.2-4.8); NEUTROPHILS % (AUTO) 57.4 % (42.0-75.0); PLATELET COUNT 309 X10^3/uL (150.0-450.0); RED BLOOD COUNT 2.82 X10^6/uL (3.5-5.4); RED CELL DISTRIBUTION WIDTH 14.8 % (11.6-16.5); WHITE BLOOD COUNT 6.2 X10^3/uL (3.6-10.0)
[2020-01-08 06:11] LABS: ALANINE AMINOTRANSFERASE 11 Units/L (12-78); ALKALINE PHOSPHATASE 35 Units/L (46-116); ASPARTATE AMINO TRANSFERASE 11 Units/L (15-37); BLOOD UREA NITROGEN 22 mg/dL (7-18); CALCIUM 9.3 mg/dL (8.5-10.1); CARBON DIOXIDE 24.5 mmol/L (21-32); CHLORIDE 106 mmol/L (98-107); COR CA(FOR HYPOALB) 10.1 mg/dL (8.5-10.1); SODIUM 140 mmol/L (136-145); TOTAL PROTEIN 5.8 g/dL (6.4-8.2); eGFR NON BLACK RACES 20 (>60)
[2020-01-08 06:40] LABS: ANISOCYTOSIS SLIGHT; PLATELET MORPHOLOGY COMMENT NORMAL (NORMAL)
--- NOTE | 2020-01-08 08:37 | PCM.PROG ---
Progress Note - Progress Note for Day of Date of Exam: 01/07/20 - Subjective Subjective: WAS ADMITTED FOR NEW ONSET A-FIB WITH RVR, UROSEPSIS, ANEMIA, HYPERTENSION, AND ALTERED MENTAL STATUS. A-FIBIS CONTROLLED AND HER HGB IS STABLE. TODAY, SHE IS ALERT AND ORIENTED, LYING IN BED ON MORNING ROUNDS. SHE CONTINUES WITH WEAKNESS AND SHORTNESS OF BREATH TODAY. ON EXAMINATION, HEART IS REGULAR IN RATE AND RHYTHM. HER LUNGS ARE NOTED WITH DIMINISHED LUNG SOUNDS THROUGHOUT. ABDOMEN IS FLAT, SOFT, AND NON-TENDER. NORMAL BOWEL SOUNDS ARE NOTED IN ALL QUADRANTS. HER VITALS THIS MORNING ARE: 99.3-96-26-96%NC-170/74. LABS WERE OBTAINED. ABNORMAL LAB VALUES INCLUDE THE FOLLOWING: RBC 2.80, HGB 9.2, HCT 25.8, CHLORIDE 108, BUN 19, CREATININE 2.19, GLUCOSE 101, AST 8, ALK PHOS 35, TOTAL PROTEIN 5.9, ALBUMIN 3.1. A CHEST XRAY WAS OBTAINED AND REVEALED: Hyperinflation. Haziness in the lung bases bilaterally may be due to pleural fluid. SHE IS CURRENTLY RECEIVING HYDRALAZINE 100MG PO TID, COREG 25MG PO BID, NIFEDIPINE 90MG PO DAILY, LOSARTAN 100MG PO HS, A NITRO PATCH, HUMULIN R SLIDING SCALE, NS AT 125ML/HR, NEB TX, ZOSYN 2.25G IV TID, ALBUMIN 25% IV BID, AND THE POTASSIUM AND MAGNESIUM PROTOCOLS. WE WILL CONTINUE TO RESTRICT FLUIDS TO 1,000ML OR LESS. OTHERWISE, WE WILL FOLLOW UP WITH AM LABS AND CONTINUE TO MONITOR. - Past Medical Family Social History Past Med/Fam/Surg Hx: No changes since H&P Allergies: Allergies meperidine [From Demerol] Allergy (Verified 03/20/19 11:20) - Review of Systems ROS: No change since H&P - Vital Signs and I&O's Vital Signs: Temperature 98.3 F Pulse Rate 73 Respiratory Rate 12 Blood Pressure [Left Arm] 197/83 Blood Pressure 167/72 O2 Sat by Pulse Oximetry 96 Intake and Output: Intake & Output 01/05/20 01/06/20 01/07/20 01/08/20 11:59 11:59 11:59 11:59 Intake Total 2360 / 2360 2324 / 2324 2291 / 2291 1967 Output Total 825 / 825 Balance 1535 / 1535 2324 / 2324 2291 / 2291 1967 - Physical Exam Oriented: Normal Eyes: Normal Ear: Normal Nose: Normal Throat: Normal Respiratory: Generalized, Diminished Cardiovascular: Normal, Bradycardia. negative: S3, S4, Murmur : Normal Auscultation: Bowel Sounds: Normal Palpation: Normal Tenderness: Normal Skin: Normal Musculoskeletal: Normal Psychiatric: Normal Mood Description: Calm Affect: Normal Speech Pattern: Clear - Laboratory and Diagnostics Result Diagrams: 01/08/20 04:01 01/08/20 04:01 Labs: 12/28/19 13:00 Blood Blood Culture - Final 12/28/19 13:39 Blood Blood Culture - Final 12/28/19 23:50 Urine,Catheterized Urine Culture - Final Laboratory WBC 6.2 X10^3/uL (3.6-10.0) 01/08/20 04:01 RBC 2.82 X10^6/uL (3.5-5.4) L 01/08/20 04:01 Hgb 9.2 g/dL (12.0-16.0) L 01/08/20 04:01 Hct 26.5 % (36.0-47.0) L 01/08/20 04:01 MCV 93.8 fL (80.0-100.0) 01/08/20 04:01 MCH 32.8 pg (27.0-34.0) 01/08/20 04:01 MCHC 34.9 g/dL (33.0-35.0) 01/08/20 04:01 RDW 14.8 % (11.6-16.5) 01/08/20 04:01 Plt Count 309 X10^3/uL (150.0-450.0) 01/08/20 04:01 Plt Count Comment Adequate (ADEQUATE) 01/08/20 04:01 MPV 7.4 fL (7.4-11.0) 01/08/20 04:01 Neut % (Auto) 57.4 % (42.0-75.0) 01/08/20 04:01 Lymph % (Auto) 28.6 % (21.0-51.0) 01/08/20 04:01 [place] % (Auto) 11.1 % (0.0-13.0) 01/08/20 04:01 Eos % (Auto) 1.8 % (0.9-2.9) 01/08/20 04:01 Baso % (Auto) 1.1 % (0.2-1.0) H 01/08/20 04:01 Neut # (Auto) 3.6 x10^3/uL (2.2-4.8) 01/08/20 04:01 Lymph # (Auto) 1.8 X10^3/uL (1.3-2.9) 01/08/20 04:01 [place] # (Auto) 0.7 x10^3/uL (0.3-0.8) 01/08/20 04:01 Eos # (Auto) 0.1 x10^3/uL (0.0-0.2) 01/08/20 04:01 Baso # (Auto) 0.1 X10^3/uL (0.0-0.1) 01/08/20 04:01 Absolute Nucleated RBC 66.7 /100WBC 01/08/20 04:01 Plt Morphology Comment Normal (NORMAL) 01/08/20 04:01 RBC Morphology Abnormal (NORMAL) A 01/08/20 04:01 Anisocytosis Slight A 01/08/20 04:01 PT 15.7 SECONDS (11.8-14.3) 12/29/19 04:38 INR Target Range - 12/29/19 04:38 INR 1.30 (0.8-1.3) 12/29/19 04:38 APTT 29.4 SECONDS (22.9-36.5) 12/29/19 04:38 PTT Comment - 12/29/19 04:38 Sodium 140 mmol/L (136-145) 01/08/20 04:01 Corrected Sodium TNP 01/08/20 04:01 Potassium 4.2 mmol/L (3.5-5.1) 01/08/20 04:01 Chloride 106 mmol/L (98-107) 01/08/20 04:01 Carbon Dioxide 24.5 mmol/L (21-32) 01/08/20 04:01 BUN 22 mg/dL (7-18) H 01/08/20 04:01 Creatinine 2.40 mg/dL (0.55-1.02) H 01/08/20 04:01 Est GFR (MDRD) Af Amer 25 (>60) L 01/08/20 04:01 Est GFR (MDRD) Non-Af 20 (>60) L 01/08/20 04:01 Glucose 74 mg/dL (65-99) 01/08/20 04:01 POC Glucose (mg/dL) 74 mg/dL (65-99) 01/08/20 05:36 Lactic Acid 0.8 mmol/L (0.4-2.0) 12/30/19 08:59 Calcium 9.3 mg/dL (8.5-10.1) 01/08/20 04:01 Corrected Calcium 10.1 mg/dL (8.5-10.1) 01/08/20 04:01 Iron 19 ug/dL (50-175) L 01/01/20 08:57 Magnesium 2.0 mg/dL (1.7-2.9) 01/07/20 03:52 Transferrin 121 mg/dL (202-364) L 01/01/20 08:57 Ferritin 211 ng/mL (8-252) 01/01/20 08:57 Total Bilirubin 0.30 mg/dL (0.2-1.0) 01/08/20 04:01 AST 11 Units/L (15-37) L 01/08/20 04:01 ALT 11 Units/L (12-78) L 01/08/20 04:01 Alkaline Phosphatase 35 Units/L (46-116) L 01/08/20 04:01 Creatine Kinase 157 Units/L (26-192) 12/29/19 04:38 CK-MB (CK-2) < 1.0 ng/mL (0-4.0) 12/29/19 04:38 CK/CKMB % Calc 0.6 % (<4) 12/29/19 04:38 Troponin I 0.10 ng/mL (0-1.5) 12/29/19 04:38 Total Protein 5.8 g/dL (6.4-8.2) L 01/08/20 04:01 Albumin 3.0 g/dL (3.4-5.0) L 01/08/20 04:01 Globulin 2.8 g/dL (2.5-4.5) 01/08/20 04:01 Albumin/Globulin Ratio 1.1 Ratio (1.1-2.1) 01/08/20 04:01 Vitamin B12 267 pg/mL (193-986) 01/01/20 08:57 Folate > 20.0 ng/mL (>8.6) 01/01/20 08:57 Specimen Type Catherized urine 12/28/19 23:50 Urine Color Yellow (YELLOW) 12/28/19 23:50 Urine Appearance Cloudy (CLEAR) 12/28/19 23:50 Urine pH 8.0 (5.0 - 8.0) 12/28/19 23:50 Ur Specific [place] 1.010 (1.000-1.030) 12/28/19 23:50 Urine Protein 4+ (NEGATIVE) 12/28/19 23:50 Urine Glucose (UA) 1+ (NEGATIVE) 12/28/19 23:50 Urine Ketones 2+ (NEGATIVE) 12/28/19 23:50 Urine Occult Blood 2+ (NEGATIVE) 12/28/19 23:50 Urine Nitrite Negative (NEGATIVE) 12/28/19 23:50 Urine Bilirubin Negative (NEGATIVE) 12/28/19 23:50 Urine Urobilinogen Normal (NORMAL) 12/28/19 23:50 Ur Leukocyte Esterase 3+ (NEGATIVE) 12/28/19 23:50 Urine RBC 0-2 /HPF (0-3) 12/28/19 23:50 Urine WBC 10-20 /HPF (0-5) A 12/28/19 23:50 Ur Squamous Epith Cells Rare /HPF (NEGATIVE) 12/28/19 23:50 Urine Bacteria Trace /HPF (NEGATIVE) 12/28/19 23:50 Coarse Granular Casts Few /HPF (NEGATIVE) 12/28/19 14:08 Ur Culture Indicated? Yes/culture set up 12/28/19 23:50 Stool Description 50 grs brn loose 01/01/20 09:29 Stl Occult Blood (IFOB) Positive (NEGATIVE) A 01/01/20 09:29 Blood Type O POSITIVE 01/05/20 10:10 Antibody Screen Negative 01/05/20 10:10 Crossmatch See Detail 01/05/20 10:10 - Plan (1) Sepsis Status: Resolved Qualifiers: Sepsis type: sepsis due to unspecified organism Sepsis acute organ dysfunction status: unspecified Qualified Code(s): A41.9 - Sepsis, unspecified organism Plan: ZOSYN 2.25G IV TID, ICONTINUE TO MONITOR (2) Urinary tract infection Status: Acute Qualifiers: Urinary tract infection type: acute cystitis Hematuria presence: without hematuria Qualified Code(s): N30.00 - Acute cystitis without hematuria Plan: ZOSYN 2.25G IV TID, CONTINUE TO MONITOR (3) Acute renal failure Status: Acute Qualifiers: Acute renal failure type: unspecified Qualified Code(s): N17.9 - Acute kidney failure, unspecified Plan: CONTINUE TO MONITOR (4) Hypertension Status: Chronic Qualifiers: Hypertension type: essential hypertension Qualified Code(s): I10 - Essential (primary) hypertension Plan: COREG 25MG PO BID, HYDRALAZINE 100MG PO TID, NIFEDIPINE 90MG PO DAILY, LOSARTAN 100MG PO HS, A NITRO PATCH, CONTINUE TO MONITOR (5) Anemia Status: Acute Qualifiers: Anemia type: iron deficiency Iron deficiency anemia type: chronic blood loss Qualified Code(s): D50.0 - Iron deficiency anemia secondary to blood loss (chronic) Plan: CONTINUE TO MONITOR (6) Fluid overload Status: Acute Qualifiers: Hypervolemia type: unspecified Qualified Code(s): E87.70 - Fluid overload, unspecified Plan: FLUID RESTRICTION, CONTINUE TO MONITOR (7) New onset a-fib Status: Resolved
[2020-01-08] MEDS: ALBUMIN HUMAN 25%- 100 ML 100 ML IV SCH (08:43)
[2020-01-08] MEDS: MICRO K EXTEN CAP 10 MEQ PO SCH (08:45)
[2020-01-08] MEDS: PROTONIX INJ 40 MG VIAL IVP SCH (08:45)
[2020-01-08] MEDS: ELAVIL PO SCH (08:46)
[2020-01-08] MEDS: FOLIC ACID TAB 1 MG PO SCH (08:46)
[2020-01-08] MEDS: COREG TAB 6.25 MG PO SCH (08:46)
[2020-01-08] MEDS: PROCARDIA XL 24-hr PO SCH (08:46)
[2020-01-08] MEDS: COLACE CAP 100 MG PO SCH (08:47)
[2020-01-08] MEDS: NIASPAN ER TAB 500 MG PO SCH (08:48)
[2020-01-08] MEDS: HEMOCYTE-PLUS PO SCH (08:48)
[2020-01-08] MEDS: NORCO 5/325 MG TAB PO PRN (08:52)
[2020-01-08] MEDS: NITRODUR PATCH 0.4 MG/HR TD SCH (09:28)
[2020-01-08] MEDS: PULMICORT NEB TX 0.5 MG NEB SCH (09:57)
[2020-01-08 17:46] VITALS: BP 154/65
== END 2020-01-08 19:20 | disposition home health service (06) | DRG 308 ==
LOC: ER 12:23 → ICU 17:13
PROVIDERS: ADMIT Internal Medicine; ATTEND Internal Medicine
DX: I10 Essential (primary) hypertension; W18.39XA Other fall on same level, initial encounter; I95.89 Other hypotension; A41.9 Sepsis, unspecified organism; Z66 Do not resuscitate; R26.89 Other abnormalities of gait and mobility; R94.31 Abnormal electrocardiogram [ECG] [EKG]; R41.82 Altered mental status, unspecified; N18.9 Chronic kidney disease, unspecified; N30.00 Acute cystitis without hematuria; I48.91 Unspecified atrial fibrillation; K92.2 Gastrointestinal hemorrhage, unspecified; I12.9 Hypertensive chronic kidney disease with stage 1 through stage 4 chronic kidney disease, or unspecified chronic kidney disease; N17.8 Other acute kidney failure; Y92.002 Bathroom of unspecified non-institutional (private) residence as the place of occurrence of the external cause
CPT/HCPCS: 36415; 36430; 36591; 70450; 71010; 71045; 76770; 80053; 81001; 82270; 82550; 82553; 82607; 82728; 82746; 83540; 83605; 83735; 84132; 84466; 84484; 85014; 85018; 85025; 85610; 85730; 86850; 86900; 86901; 86922; 87040; 87086; 93005; 93041; 94640; 96365; 96367; 96374; 96375; 97110; 97162; 97166; 97530; 97535; 99285; A4216; A4222; C9113; J0360; J0713; J0885; J1200; J1815; J1940; J2543; J3475; J3490; J7030; J7040; J7050; J7613; J7626; J8499; P9016; P9047

== ENCOUNTER 2020-03-02 12:13 | Inpatient (IN) ==
[2020-03-02] MEDS ORDERED: HumuLIN R SUBCUT PRN (13:58)
[2020-03-02] MEDS ORDERED: NS 1000 ML 1,000 ML ONE (14:03)
[2020-03-02 14:31] LABS: BASOPHILS % (AUTO) 0.6 % (0.2-1.0); EOSINOPHILS # (AUTO) 0.1 x10^3/uL (0.0-0.2); EOSINOPHILS % (AUTO) 1.3 % (0.9-2.9); HEMATOCRIT 31.4 % (36.0-47.0); LYMPHOCYTES # (AUTO) 1.9 X10^3/uL (1.3-2.9); LYMPHOCYTES % (AUTO) 25.8 % (21.0-51.0); MEAN CORPUSCULAR HEMOGLOBIN 32.9 pg (27.0-34.0); MEAN CORPUSCULAR HGB CONC 35.1 g/dL (33.0-35.0); MEAN CORPUSCULAR VOLUME 93.9 fL (80.0-100.0); MEAN PLATELET VOLUME 7.2 fL (7.4-11.0); MONOCYTES # (AUTO) 0.4 x10^3/uL (0.3-0.8); MONOCYTES % (AUTO) 5.7 % (0.0-13.0); NEUTROPHILS % (AUTO) 66.6 % (42.0-75.0); PLATELET COUNT 296 X10^3/uL (150.0-450.0); RED BLOOD COUNT 3.34 X10^6/uL (3.5-5.4); RED CELL DISTRIBUTION WIDTH 13.6 % (11.6-16.5); WHITE BLOOD COUNT 7.5 X10^3/uL (3.6-10.0)
[2020-03-02 14:52] LABS: ALBUMIN 2.8 g/dL (3.4-5.0); CALCIUM 9.4 mg/dL (8.5-10.1); CARBON DIOXIDE 26.7 mmol/L (21-32); CKMB % 1.9 % (<4); COR CA(FOR HYPOALB) 10.4 mg/dL (8.5-10.1); CREATINE KINASE MB 1.6 ng/mL (0-4.0); CREATININE 2.9 mg/dL (0.55-1.02); TOTAL PROTEIN 6.5 g/dL (6.4-8.2); TROPONIN I 0.03 ng/mL (0-1.5)
[2020-03-02] MEDS: NS 1000 ML 1,000 ML IV SCH (15:22)
--- NOTE | 2020-03-02 15:51 | RAD ---
HISTORYINTRACTABLE NAUSEA AND VOMITING ASTHMA, DIABETES, HTN, GB, HYSTERECTOMY, KIDNEY STENTSSTUDYACUTE ABDOMEN [id number]/20/2020, 12/28/2019FINDINGSCardiomediastinal silhouette within normal limits. Lungs appear mildly hyperinflated but grossly clear. There may be small pleural effusions. No visible pneumothorax.No visible abdominal free air. Nonobstructive bowel gas pattern with moderate colonic stool. No suggestion of organomegaly. Right upper quadrant surgical clips. Arterial calcifications. No acute osseous findingIMPRESSION1. [Possible small effusions. Otherwise lungs grossly clear. Hyperinflation.]2. [No evidence for acute abdominal pathology identified.]Electronically signed by: Lizandro Gilbert (March 02, 2020 15:50:19)
[2020-03-02] MEDS: APRESOLINE TAB 25 MG PO SCH ×2 (17:00→21:14)
[2020-03-02] MEDS: ELAVIL PO SCH (17:00)
[2020-03-02] MEDS: NITRODUR PATCH 0.4 MG/HR TD SCH (17:01)
[2020-03-02] MEDS: ZOFRAN INJ 4 MG VIAL IVP PRN (17:12)
[2020-03-02 18:21] LABS: BILIRUBIN,URINE NEGATIVE (NEGATIVE); BLOOD/HEMOGLOBIN,URINE NEGATIVE (NEGATIVE); GLUCOSE, URINE NEGATIVE (NEGATIVE); KETONES,URINE NEGATIVE (NEGATIVE); LEUKOCYTE ESTERASE ,URINE 1+ (NEGATIVE); NITRITES,URINE NEGATIVE (NEGATIVE); PROTEIN,URINE 4+ (NEGATIVE); UROBILINOGEN,URINE NORMAL (NORMAL)
[2020-03-02 18:32] LABS: APPEARANCE,URINE CLEAR (CLEAR); COLOR,URINE YELLOW (YELLOW)
[2020-03-02 18:34] LABS: BACTERIA,URINE TRACE /HPF (NEGATIVE); RBC,URINE 0-2 /HPF (0-3); RENAL EPITHELIAL CELLS,URINE FEW /HPF (NEGATIVE); SQUAMOUS EPITHELIAL CELL,UR FEW /HPF (NEGATIVE)
[2020-03-02 18:35] LABS: AMORPHOUS SEDIMENT,UR TRACE /HPF (NEGATIVE)
[2020-03-02] MEDS: PROCARDIA XL PO SCH (18:56)
[2020-03-02 19:50] LABS: CKMB % 1.5 % (<4); CREATINE KINASE MB 1.3 ng/mL (0-4.0); TROPONIN I 0.03 ng/mL (0-1.5)
[2020-03-02] MEDS ORDERED: SNACK - Diabetic Appropriate PO SCH (20:00)
[2020-03-02] MEDS: SNACK - Diabetic Appropriate PO SCH (20:53)
[2020-03-02] MEDS: COZAAR PO SCH (20:54)
[2020-03-02] MEDS: COLACE CAP 100 MG PO SCH (20:54)
[2020-03-02] MEDS: COREG TAB 25 MG PO SCH (20:54)
[2020-03-02] MEDS: LIPITOR TAB 40 MG PO SCH (20:55)
[2020-03-02] MEDS: LANTUS SC SCH (20:55)
[2020-03-02] MEDS: BENTYL CAP 10 MG PO PRN (20:56)
[2020-03-02] MEDS: XARELTO PO SCH (21:15)
[2020-03-02] MEDS: PULMICORT NEB TX 0.5 MG NEB SCH (21:30)
[2020-03-02] MEDS ORDERED: BENADRYL CAP/TAB 25 MG PO ONE (21:36)
[2020-03-02 22:29] LABS: CKMB % 1.5 % (<4); CREATINE KINASE MB 1.1 ng/mL (0-4.0); TROPONIN I 0.05 ng/mL (0-1.5)
[2020-03-03] MEDS: NS 1000 ML 1,000 ML IV SCH ×3 (02:11→19:50)
[2020-03-03] MEDS: APRESOLINE TAB 25 MG PO SCH ×3 (05:04→21:42)
[2020-03-03 06:04] LABS: BASOPHILS # (AUTO) 0.1 X10^3/uL (0.0-0.1); BASOPHILS % (AUTO) 0.9 % (0.2-1.0); EOSINOPHILS # (AUTO) 0.2 x10^3/uL (0.0-0.2); EOSINOPHILS % (AUTO) 3.3 % (0.9-2.9); HEMATOCRIT 23.2 % (36.0-47.0); HEMOGLOBIN 8.1 g/dL (12.0-16.0); LYMPHOCYTES % (AUTO) 33.8 % (21.0-51.0); MEAN CORPUSCULAR HEMOGLOBIN 32.7 pg (27.0-34.0); MEAN CORPUSCULAR HGB CONC 34.9 g/dL (33.0-35.0); MEAN CORPUSCULAR VOLUME 93.6 fL (80.0-100.0); MEAN PLATELET VOLUME 7.5 fL (7.4-11.0); MONOCYTES # (AUTO) 0.6 x10^3/uL (0.3-0.8); MONOCYTES % (AUTO) 10.8 % (0.0-13.0); NEUTROPHILS # (AUTO) 3.1 x10^3/uL (2.2-4.8); NEUTROPHILS % (AUTO) 51.2 % (42.0-75.0); PLATELET COUNT 216 X10^3/uL (150.0-450.0); RED BLOOD COUNT 2.48 X10^6/uL (3.5-5.4); RED CELL DISTRIBUTION WIDTH 13.5 % (11.6-16.5)
[2020-03-03 06:07] LABS: ALANINE AMINOTRANSFERASE 18 Units/L (12-78); ALKALINE PHOSPHATASE 46 Units/L (46-116); ASPARTATE AMINO TRANSFERASE 16 Units/L (15-37); BLOOD UREA NITROGEN 29 mg/dL (7-18); CALCIUM 8.3 mg/dL (8.5-10.1); CARBON DIOXIDE 23.6 mmol/L (21-32); CHLORIDE 108 mmol/L (98-107); COR CA(FOR HYPOALB) 9.9 mg/dL (8.5-10.1); CREATININE 2.53 mg/dL (0.55-1.02); SODIUM 138 mmol/L (136-145); TOTAL PROTEIN 4.9 g/dL (6.4-8.2); eGFR NON BLACK RACES 19 (>60)
[2020-03-03] MEDS ORDERED: PROTONIX TAB 40 MG PO SCH (09:00)
[2020-03-03] MEDS ORDERED: PROCARDIA XL PO SCH (09:00)
[2020-03-03] MEDS: PULMICORT NEB TX 0.5 MG NEB SCH ×2 (10:00→20:20)
[2020-03-03] MEDS: ACTOS PO SCH (10:19)
[2020-03-03] MEDS: COREG TAB 25 MG PO SCH ×2 (10:20→21:42)
[2020-03-03] MEDS: ELAVIL PO SCH (10:21)
[2020-03-03] MEDS: PROCARDIA XL PO SCH (10:21)
[2020-03-03] MEDS: COLACE CAP 100 MG PO SCH ×2 (10:21→21:43)
[2020-03-03] MEDS: FOLIC ACID TAB 1 MG PO SCH (10:22)
[2020-03-03] MEDS: XARELTO PO SCH ×2 (10:23→21:46)
--- NOTE | 2020-03-03 12:43 | DR.UPDATE ---
H&P Update History and Physical Update: History and Physical reviewed and patient examined. Changes noted: Yes with the following: PRESENTED TO THE OFFICE WITH COMPLAINT OF PERSISTENT NAUSEA AND VOMITING THAT STARTED 3-4 DAYS PRIOR. SHE ALSO REPORTED DIFFUSE ABDOMINAL PAIN, WEAKNESS, AND DECREASED APPETITIE. SHE DENIES DIARRHEA OR FEVER. SHE REPORTS TAKING ZOFRAN AND BENTYL AT HOME WITHOUT IMPROVEMENT IN SYMPTOMS. SHE WAS ADMITTED TO THE HOSPITAL FOR FURTHER EVALUATION AND TREATMENT OF INTRACTABLE NAUSEA, VOMITING, ABDOMINAL PAIN, AND HYPERTENSION. ON ARRIVAL TO THE HOSPITAL, VITALS WERE 97.7-72-18-100%-181/83. LABS WERE OBTAINED. ABNORMAL LAB VALUES INCLUDE THE FOLLOWING: RBC 3.34, HGB 11.0, HCT 31.4, BUN 31, CREATININE 2.90, GLUCOSE 139. CARDIAC ENZYMES ARE WITHIN NORMAL LIMITS. URINALYSIS WAS OBTAINED AND REVEALED: WBC 3-5, RBC 0-2, LEUKOCYTES 1+, BACTERIA TRACE. EKG REVEALED: SINUS RHYTHM WITH HR 79. AN ABDOMINAL SERIES WAS OBTAINED AND REVEALED: 1. Possible small effusions. Otherwise lungs grossly clear. Hyperinflation. 2. No evidence for acute abdominal pathology identified. SHE WAS STARTED ON NORMAL SALINE AT 80ML/HR, PEPCID 20MG IV DAILY, PROTONIX 40MG PO BID, GI COCKTAIL 15ML PO QID, DILAUDID 1MG IV Q4H PRN PAIN, HUMULIN R SLIDING SCALE, AND HOME MEDICATIONS WERE RESUMED WITH THE EXCEPTION OF HER LASIX. OTHERWISE, WE PLAN TO FOLLOW UP WITH AM LABS AND CONTINUE TO MONITOR. Prescription drug monitoring program results: PDMP was not reviewed H&P Reviewed: Yes Patient was examined?: Yes
[2020-03-03 13:57] VITALS: BMI 18.2
[2020-03-03] MEDS: LEVSIN/MAALOX/LIDOC VISC PO SCH ×4 (14:32→21:44)
[2020-03-03] MEDS: PEPCID 20 MG IV PREMIX* 20 MG/50 ML BAG IV SCH (14:33)
[2020-03-03] MEDS: BENTYL CAP 10 MG PO PRN (16:37)
[2020-03-03] MEDS: DILAUDID INJ IVP PRN (17:21)
[2020-03-03] MEDS: NITRODUR PATCH 0.4 MG/HR TD SCH (17:23)
[2020-03-03 18:15] LABS: HEMATOCRIT 22.7 % (36.0-47.0); HEMOGLOBIN 7.9 g/dL (12.0-16.0)
[2020-03-03] MEDS: SNACK - Diabetic Appropriate PO SCH (20:00)
[2020-03-03] MEDS: PROTONIX TAB 40 MG PO SCH (21:42)
[2020-03-03] MEDS: LIPITOR TAB 40 MG PO SCH (21:42)
[2020-03-03] MEDS: LANTUS SC SCH (21:43)
[2020-03-03] MEDS: COZAAR PO SCH (21:43)
[2020-03-04] MEDS: NS 1000 ML 1,000 ML IV SCH ×2 (04:40→21:42)
[2020-03-04 05:24] LABS: BASOPHILS % (AUTO) 0.8 % (0.2-1.0); EOSINOPHILS # (AUTO) 0.4 x10^3/uL (0.0-0.2); EOSINOPHILS % (AUTO) 6.1 % (0.9-2.9); HEMATOCRIT 24.3 % (36.0-47.0); HEMOGLOBIN 8.4 g/dL (12.0-16.0); LYMPHOCYTES # (AUTO) 1.5 X10^3/uL (1.3-2.9); LYMPHOCYTES % (AUTO) 24.9 % (21.0-51.0); MEAN CORPUSCULAR HEMOGLOBIN 32.6 pg (27.0-34.0); MEAN CORPUSCULAR HGB CONC 34.5 g/dL (33.0-35.0); MEAN CORPUSCULAR VOLUME 94.3 fL (80.0-100.0); MEAN PLATELET VOLUME 7.8 fL (7.4-11.0); MONOCYTES # (AUTO) 0.6 x10^3/uL (0.3-0.8); MONOCYTES % (AUTO) 10.3 % (0.0-13.0); NEUTROPHILS # (AUTO) 3.4 x10^3/uL (2.2-4.8); NEUTROPHILS % (AUTO) 57.9 % (42.0-75.0); PLATELET COUNT 227 X10^3/uL (150.0-450.0); RED BLOOD COUNT 2.57 X10^6/uL (3.5-5.4); RED CELL DISTRIBUTION WIDTH 13.5 % (11.6-16.5); WHITE BLOOD COUNT 5.9 X10^3/uL (3.6-10.0)
[2020-03-04 05:38] LABS: ALANINE AMINOTRANSFERASE 19 Units/L (12-78); ALBUMIN 2.2 g/dL (3.4-5.0); ALKALINE PHOSPHATASE 48 Units/L (46-116); ASPARTATE AMINO TRANSFERASE 16 Units/L (15-37); BLOOD UREA NITROGEN 29 mg/dL (7-18); CALCIUM 8.5 mg/dL (8.5-10.1); CARBON DIOXIDE 23.7 mmol/L (21-32); CHLORIDE 108 mmol/L (98-107); COR CA(FOR HYPOALB) 9.9 mg/dL (8.5-10.1); CREATININE 2.45 mg/dL (0.55-1.02); SODIUM 139 mmol/L (136-145); TOTAL PROTEIN 5.3 g/dL (6.4-8.2); eGFR NON BLACK RACES 20 (>60)
[2020-03-04] MEDS: APRESOLINE TAB 25 MG PO SCH ×3 (05:53→22:25)
[2020-03-04] MEDS: PULMICORT NEB TX 0.5 MG NEB SCH ×2 (08:09→21:33)
[2020-03-04] MEDS: DILAUDID INJ IVP PRN ×2 (08:30→23:54)
[2020-03-04] MEDS: ELAVIL PO SCH (09:10)
[2020-03-04] MEDS: LEVSIN/MAALOX/LIDOC VISC PO SCH ×4 (09:10→21:40)
[2020-03-04] MEDS: PEPCID 20 MG IV PREMIX* 20 MG/50 ML BAG IV SCH (09:10)
[2020-03-04] MEDS: FOLIC ACID TAB 1 MG PO SCH (09:11)
[2020-03-04] MEDS: COREG TAB 25 MG PO SCH ×2 (09:11→21:40)
[2020-03-04] MEDS: COLACE CAP 100 MG PO SCH ×2 (09:11→21:41)
[2020-03-04] MEDS: PROCARDIA XL PO SCH (09:12)
[2020-03-04] MEDS: PROTONIX TAB 40 MG PO SCH ×2 (09:12→21:41)
[2020-03-04] MEDS: ACTOS PO SCH (09:12)
[2020-03-04] MEDS: XARELTO PO SCH (09:22)
[2020-03-04] MEDS ORDERED: PROCALAMINE 3 % 1,000 ML IV SCH (11:00)
[2020-03-04] MEDS ORDERED: DIPRIVAN VIAL 20 ML ONE (11:57)
[2020-03-04] MEDS ORDERED: LR 1000 ML IV 1,000 ML IV ONE (11:59)
--- NOTE | 2020-03-04 12:19 | OR.IMMED ---
Immediate Post-Op Note - Immediate Post-Op Note Pre-Op Diagnosis: abdominal pain, vomiting , anemia . Post-Op Diagnosis: moderate gastritis . small Hiatal Hernia . no bleeding , no ulcers or neoplasm . Procedure: EGD with Bx Surgeon/Vaccine Manager: Mireya Specimens Removed: Du, Antrum. Estimated Blood Loss: none Drains: NONE Complications: none. Condition: Stable (for abdominal CT) Post Hospital Plans and Medications: to start on soft diet
[2020-03-04] MEDS: ALBUMIN HUMAN 25%- 100 ML 100 ML IV SCH (13:26)
--- NOTE | 2020-03-04 16:10 | RAD ---
HISTORYSOBSTUDYCHEST, 1 VIEWCOMPARISONPortable chest January 08, 2020.FINDINGSThe trachea is midline. The cardiac silhouette is borderline enlarged but smaller than it was in December of 2019 in the pleural effusion in the lung bases has resolved.. The lungs are clear without focal infiltrate or effusion. The bony thorax is unremarkable.IMPRESSIONNo acute cardiopulmonary disease. Borderline cardiomegaly but no signs of CHF at this time. The heart is smaller and the pleural effusions have resolved since January 08, 2020 prior film.Electronically signed by: KVNG BURTON (March 04, 2020 16:09:05)
[2020-03-04] MEDS: NITRODUR PATCH 0.4 MG/HR TD SCH (16:45)
[2020-03-04] MEDS ORDERED: D50W ABBOJECT SYR IV ONE (18:26)
[2020-03-04] MEDS: LIPITOR TAB 40 MG PO SCH (21:41)
[2020-03-04] MEDS: COZAAR PO SCH (21:41)
[2020-03-04] MEDS: SNACK - Diabetic Appropriate PO SCH (21:42)
[2020-03-04] MEDS: LANTUS SC SCH (21:49)
[2020-03-05 05:15] LABS: BASOPHILS % (AUTO) 0.4 % (0.2-1.0); EOSINOPHILS # (AUTO) 0.2 x10^3/uL (0.0-0.2); EOSINOPHILS % (AUTO) 3.4 % (0.9-2.9); HEMATOCRIT 22.9 % (36.0-47.0); LYMPHOCYTES # (AUTO) 1.3 X10^3/uL (1.3-2.9); LYMPHOCYTES % (AUTO) 17.9 % (21.0-51.0); MEAN CORPUSCULAR HEMOGLOBIN 32.9 pg (27.0-34.0); MEAN CORPUSCULAR HGB CONC 34.8 g/dL (33.0-35.0); MEAN CORPUSCULAR VOLUME 94.7 fL (80.0-100.0); MEAN PLATELET VOLUME 7.5 fL (7.4-11.0); MONOCYTES # (AUTO) 0.6 x10^3/uL (0.3-0.8); MONOCYTES % (AUTO) 8.4 % (0.0-13.0); NEUTROPHILS % (AUTO) 69.9 % (42.0-75.0); PLATELET COUNT 211 X10^3/uL (150.0-450.0); RED BLOOD COUNT 2.42 X10^6/uL (3.5-5.4); RED CELL DISTRIBUTION WIDTH 13.7 % (11.6-16.5); WHITE BLOOD COUNT 7.1 X10^3/uL (3.6-10.0)
[2020-03-05] MEDS: APRESOLINE TAB 25 MG PO SCH ×3 (05:16→21:01)
[2020-03-05 05:28] LABS: ALANINE AMINOTRANSFERASE 17 Units/L (12-78); ALBUMIN 2.5 g/dL (3.4-5.0); ALKALINE PHOSPHATASE 52 Units/L (46-116); ASPARTATE AMINO TRANSFERASE 17 Units/L (15-37); BLOOD UREA NITROGEN 21 mg/dL (7-18); CALCIUM 8.6 mg/dL (8.5-10.1); CARBON DIOXIDE 24.3 mmol/L (21-32); CHLORIDE 109 mmol/L (98-107); COR CA(FOR HYPOALB) 9.8 mg/dL (8.5-10.1); SODIUM 140 mmol/L (136-145); TOTAL PROTEIN 5.3 g/dL (6.4-8.2); eGFR NON BLACK RACES 22 (>60)
--- NOTE | 2020-03-05 06:26 | CT ---
HISTORYABD PAINSTUDYABDOMEN/PELVIS W/O CONCOMPARISONJanuary 2019TECHNIQUEMultiple axial images of the abdomen and pelvis were obtained from the lung bases to the pubic symphysis without the administration of IV contrast. Dose reduction techniques including Automated Exposure Control (AEC) and adjustment of mA and kV were utilized.FINDINGSImages demonstrate partially visualized bilateral pleural effusions with adjacent areas of compressive atelectasis and/or consolidation. The liver, spleen, pancreas, and left adrenal are grossly unremarkable in appearance given the limitations of this noncontrast exam. Calcification is noted within/adjacent to the right adrenal gland. Punctate calculi are seen within the right kidney. A mildly prominent right extrarenal pelvis is noted. Calcification within the left kidney may be vascular in nature. A subcentimeter lesion along the posterior margin of the left kidney is too small to accurately characterize. Surgical clips are seen within the gallbladder fossa. Gastric wall and gastric fold thickening are demonstrated suggesting gastritis or other process. A small hiatal hernia is noted. Correlation with endoscopy may be helpful as clinically indicated. By history the uterus is been surgically removed. The appendix is not definitely visualized. No significant inflammatory changes are appreciated within the right lower quadrant. Atherosclerotic changes are seen within the visualized coronary arteries and aorta. The urinary bladder is somewhat distended but otherwise unremarkable. Degenerative changes are seen within the visualized spine.IMPRESSIONBilateral pleural effusions.Small nonobstructing right renal calculi which were also demonstrated on prior exam.Gastric wall and gastric fold thickening as noted above.Cholecystectomy.Other findings as noted above.Electronically signed by: NELLY MALAGON (March 05, 2020 06:24:25)
[2020-03-05] MEDS: PULMICORT NEB TX 0.5 MG NEB SCH ×2 (08:30→20:00)
[2020-03-05] MEDS: PEPCID 20 MG IV PREMIX* 20 MG/50 ML BAG IV SCH (09:09)
[2020-03-05] MEDS: ACTOS PO SCH (09:09)
[2020-03-05] MEDS: COREG TAB 25 MG PO SCH ×2 (09:10→21:02)
[2020-03-05] MEDS: FOLIC ACID TAB 1 MG PO SCH (09:10)
[2020-03-05] MEDS: COLACE CAP 100 MG PO SCH ×2 (09:10→21:02)
[2020-03-05] MEDS: PROTONIX TAB 40 MG PO SCH ×2 (09:10→21:02)
[2020-03-05] MEDS: ELAVIL PO SCH (09:10)
[2020-03-05] MEDS: PROCARDIA XL PO SCH (09:10)
[2020-03-05] MEDS: XARELTO PO SCH ×2 (09:11→21:02)
[2020-03-05] MEDS: ALBUMIN HUMAN 25%- 100 ML 100 ML IV SCH (09:11)
[2020-03-05] MEDS: NS 1000 ML 1,000 ML IV SCH ×2 (09:12→21:02)
[2020-03-05] MEDS: LEVSIN/MAALOX/LIDOC VISC PO SCH ×4 (09:12→21:00)
--- NOTE | 2020-03-05 11:15 | PCM.PROG ---
Progress Note Progress Note for Day of Date of Exam: 03/05/20 Subjective Subjective: Patient seen at bedside, reports heartburn and abdominal pain. She reports pain is worse with eating. She was admitted for intractable N/V and abdominal pain, CTAP showed Gastric wall and gastric fold thickening are demonstrated suggesting gastritis or other process. A small hiatal hernia is noted. Correlation with endoscopy may be helpful as clinically indicated. Dr Toledo was consulted and EGD was done which showed gastritis, no ulcer or bleeding or neoplasm. She was started on soft diet. Labs: Hgb: 8.0, down from 8.4, Cr trending down to 2.2 Plan: will switch to full liquid diet and see if patient tolerates that better, continue GI cocktail and protonix, Dr. Toledo to see the patient today. Monitor AM labs. Past Medical Family Social History Past Med/Fam/Surg Hx: No changes since H&P Allergies: Allergies codeine Allergy (Intermediate, Verified 03/02/20 14:12) meperidine [From Demerol] Allergy (Verified 03/20/19 11:20) Review of Systems ROS: No change since H&P Vital Signs and I&O's Vital Signs: Temperature 98.1 F Pulse Rate [Left Brachial] 70 Pulse Rate 64 Respiratory Rate 18 Blood Pressure [Left Arm] 150/58 Blood Pressure [Right Arm] 150/65 Blood Pressure 154/65 O2 Sat by Pulse Oximetry 92 Intake and Output: Intake & Output 03/02/20 03/03/20 03/04/20 03/05/20 23:59 23:59 23:59 23:59 Intake Total 730 / 730 4194 / 4194 760 / 760 700 / 700 Output Total 200 / 200 800 / 800 600 / 600 650 / 650 Balance 530 / 530 3394 / 3394 160 / 160 50 / 50 Physical Exam Oriented: Normal Eyes: Normal Ear: Normal Nose: Normal Respiratory: Diminished Cardiovascular: Normal Auscultation: Bowel Sounds: Normal Tenderness: Diffuse, Epigastric and Mild; negative Rebound and Guarding Skin: Decreased Turgur Musculoskeletal: Normal Mood Description: Calm Affect: Normal Speech Pattern: Clear and Appropriate Laboratory and Diagnostics Result Diagrams: 03/05/20 04:48 03/05/20 04:48 Labs: 03/04/20 04:05 Urine,Clean Catch Urine Culture - Final Laboratory WBC 7.1 X10^3/uL (3.6-10.0) 03/05/20 04:48 RBC 2.42 X10^6/uL (3.5-5.4) L 03/05/20 04:48 Hgb 8.0 g/dL (12.0-16.0) L 03/05/20 04:48 Hct 22.9 % (36.0-47.0) L 03/05/20 04:48 MCV 94.7 fL (80.0-100.0) 03/05/20 04:48 MCH 32.9 pg (27.0-34.0) 03/05/20 04:48 MCHC 34.8 g/dL (33.0-35.0) 03/05/20 04:48 RDW 13.7 % (11.6-16.5) 03/05/20 04:48 Plt Count 211 X10^3/uL (150.0-450.0) 03/05/20 04:48 MPV 7.5 fL (7.4-11.0) 03/05/20 04:48 Neut % (Auto) 69.9 % (42.0-75.0) 03/05/20 04:48 Lymph % (Auto) 17.9 % (21.0-51.0) L 03/05/20 04:48 [place] % (Auto) 8.4 % (0.0-13.0) 03/05/20 04:48 Eos % (Auto) 3.4 % (0.9-2.9) H 03/05/20 04:48 Baso % (Auto) 0.4 % (0.2-1.0) 03/05/20 04:48 Neut # (Auto) 5.0 x10^3/uL (2.2-4.8) H 03/05/20 04:48 Lymph # (Auto) 1.3 X10^3/uL (1.3-2.9) 03/05/20 04:48 [place] # (Auto) 0.6 x10^3/uL (0.3-0.8) 03/05/20 04:48 Eos # (Auto) 0.2 x10^3/uL (0.0-0.2) 03/05/20 04:48 Baso # (Auto) 0.0 X10^3/uL (0.0-0.1) 03/05/20 04:48 Absolute Nucleated RBC 0.0 /100WBC 03/05/20 04:48 Sodium 140 mmol/L (136-145) 03/05/20 04:48 Corrected Sodium TNP 03/05/20 04:48 Potassium 3.8 mmol/L (3.5-5.1) 03/05/20 04:48 Chloride 109 mmol/L (98-107) H 03/05/20 04:48 Carbon Dioxide 24.3 mmol/L (21-32) 03/05/20 04:48 BUN 21 mg/dL (7-18) H 03/05/20 04:48 Creatinine 2.20 mg/dL (0.55-1.02) H 03/05/20 04:48 Est GFR (MDRD) Af Amer 27 (>60) L 03/05/20 04:48 Est GFR (MDRD) Non-Af 22 (>60) L 03/05/20 04:48 Glucose 77 mg/dL (65-99) 03/05/20 04:48 Calcium 8.6 mg/dL (8.5-10.1) 03/05/20 04:48 Corrected Calcium 9.8 mg/dL (8.5-10.1) 03/05/20 04:48 Iron 41 ug/dL (50-175) L 03/03/20 05:37 Transferrin 133 mg/dL (202-364) L 03/03/20 05:37 Ferritin 252 ng/mL (8-252) 03/03/20 05:37 Total Bilirubin 0.20 mg/dL (0.2-1.0) 03/05/20 04:48 AST 17 Units/L (15-37) 03/05/20 04:48 ALT 17 Units/L (12-78) 03/05/20 04:48 Alkaline Phosphatase 52 Units/L (46-116) 03/05/20 04:48 Creatine Kinase 73 Units/L (26-192) 03/02/20 21:58 CK-MB (CK-2) 1.1 ng/mL (0-4.0) 03/02/20 21:58 CK/CKMB % Calc 1.5 % (<4) 03/02/20 21:58 Troponin I 0.05 ng/mL (0-1.5) 03/02/20 21:58 Total Protein 5.3 g/dL (6.4-8.2) L 03/05/20 04:48 Albumin 2.5 g/dL (3.4-5.0) L 03/05/20 04:48 Globulin 2.8 g/dL (2.5-4.5) 03/05/20 04:48 Albumin/Globulin Ratio 0.9 Ratio (1.1-2.1) L 03/05/20 04:48 Amylase 50 Units/L (25-115) 03/02/20 14:15 Lipase 95 Units/L (73-393) 03/02/20 14:15 Vitamin B12 291 pg/mL (193-986) 03/03/20 05:37 Folate 19.4 ng/mL (>8.6) 03/03/20 05:37 Specimen Type Clean catch urine 03/02/20 17:58 Urine Color Yellow (YELLOW) 03/02/20 17:58 Urine Appearance Clear (CLEAR) 03/02/20 17:58 Urine pH 7.0 (5.0 - 8.0) 03/02/20 17:58 Ur Specific [place] 1.015 (1.000-1.030) 03/02/20 17:58 Urine Protein 4+ (NEGATIVE) 03/02/20 17:58 Urine Glucose (UA) Negative (NEGATIVE) 03/02/20 17:58 Urine Ketones Negative (NEGATIVE) 03/02/20 17:58 Urine Occult Blood Negative (NEGATIVE) 03/02/20 17:58 Urine Nitrite Negative (NEGATIVE) 03/02/20 17:58 Urine Bilirubin Negative (NEGATIVE) 03/02/20 17:58 Urine Urobilinogen Normal (NORMAL) 03/02/20 17:58 Ur Leukocyte Esterase 1+ (NEGATIVE) 03/02/20 17:58 Urine RBC 0-2 /HPF (0-3) 03/02/20 17:58 Urine WBC 3-5 /HPF (0-5) 03/02/20 17:58 Ur Squamous Epith Cells Few /HPF (NEGATIVE) 03/02/20 17:58 Ur Renal Epithelial Cell Few /HPF (NEGATIVE) 03/02/20 17:58 Amorphous Sediment Trace /HPF (NEGATIVE) 03/02/20 17:58 Urine Bacteria Trace /HPF (NEGATIVE) 03/02/20 17:58 Ur Culture Indicated? No/not indicated 03/02/20 17:58 Tissue Pathology To follow 03/04/20 12:05 Plan (1) Anemia: Status: Acute Qualifiers: Anemia type: unspecified type Qualified Code(s): D64.9 - Anemia, unspecified (2) Gastritis: Status: Acute Qualifiers: Chronicity: acute Gastritis bleeding: without bleeding Gastritis type: other gastritis Qualified Code(s): K29.00 - Acute gastritis without bleeding (3) Nausea & vomiting: Status: Acute Qualifiers: Vomiting Intractability: non-intractable Vomiting type: unspecified Qualified Code(s): R11.2 - Nausea with vomiting, unspecified (4) Hypertension: Status: Chronic Qualifiers: Hypertension type: essential hypertension Qualified Code(s): I10 - Essential (primary) hypertension (5) Diabetes: Status: Chronic Qualifiers: Diabetes mellitus complication status: with hyperglycemia Diabetes mellitus exterminator helper insulin use: with exterminator helper use Diabetes mellitus type: type 2 Qualified Code(s): E11.65 - Type 2 diabetes mellitus with hyperglycemia; Z79.4 - FPC (current) use of insulin (6) CKD (chronic kidney disease): Status: Acute Qualifiers: Chronic kidney disease stage: stage 4 (severe) Qualified Code(s): N18.4 - Chronic kidney disease, stage 4 (severe)
[2020-03-05] MEDS: BENTYL CAP 10 MG PO PRN (14:21)
[2020-03-05] MEDS: DILAUDID INJ IVP PRN (16:34)
[2020-03-05] MEDS: NITRODUR PATCH 0.4 MG/HR TD SCH (16:35)
[2020-03-05] MEDS: SNACK - Diabetic Appropriate PO SCH (20:00)
[2020-03-05] MEDS: COZAAR PO SCH (21:01)
[2020-03-05] MEDS: LIPITOR TAB 40 MG PO SCH (21:02)
[2020-03-05] MEDS: LANTUS SC SCH (21:04)
[2020-03-06] MEDS: NS 1000 ML 1,000 ML IV SCH ×3 (04:38→23:19)
[2020-03-06] MEDS: ZOFRAN INJ 4 MG VIAL IVP PRN (05:18)
[2020-03-06] MEDS: APRESOLINE TAB 25 MG PO SCH ×3 (05:18→22:00)
[2020-03-06 06:17] LABS: BASOPHILS % (AUTO) 0.3 % (0.2-1.0); EOSINOPHILS # (AUTO) 0.2 x10^3/uL (0.0-0.2); EOSINOPHILS % (AUTO) 2.4 % (0.9-2.9); HEMATOCRIT 23.7 % (36.0-47.0); HEMOGLOBIN 8.2 g/dL (12.0-16.0); LYMPHOCYTES # (AUTO) 1.2 X10^3/uL (1.3-2.9); LYMPHOCYTES % (AUTO) 18.1 % (21.0-51.0); MEAN CORPUSCULAR HEMOGLOBIN 32.8 pg (27.0-34.0); MEAN CORPUSCULAR HGB CONC 34.7 g/dL (33.0-35.0); MEAN CORPUSCULAR VOLUME 94.8 fL (80.0-100.0); MONOCYTES # (AUTO) 0.6 x10^3/uL (0.3-0.8); MONOCYTES % (AUTO) 8.3 % (0.0-13.0); NEUTROPHILS # (AUTO) 4.8 x10^3/uL (2.2-4.8); NEUTROPHILS % (AUTO) 70.9 % (42.0-75.0); PLATELET COUNT 201 X10^3/uL (150.0-450.0); RED CELL DISTRIBUTION WIDTH 13.9 % (11.6-16.5); WHITE BLOOD COUNT 6.8 X10^3/uL (3.6-10.0)
[2020-03-06 06:32] LABS: ALBUMIN 2.7 g/dL (3.4-5.0); CALCIUM 8.8 mg/dL (8.5-10.1); CARBON DIOXIDE 22.7 mmol/L (21-32); COR CA(FOR HYPOALB) 9.8 mg/dL (8.5-10.1); CREATININE 2.18 mg/dL (0.55-1.02); TOTAL PROTEIN 5.5 g/dL (6.4-8.2)
--- NOTE | 2020-03-06 06:43 | DR.PROGNOT ---
Hospital Progress Notes - Progress Note for Day of: Progress Note Date: 03/06/20 - Chief Complaint Chief Complaint: still c/o abdominal pain , more on the Rt side and RLQ with poor appetite . nausea , no vomiting . c/o bloating feeling . CT was unremarkable . - Past Medical Family Social History Past Med/Fam/Surg Hx: No changes since H&P Allergies: Allergies codeine Allergy (Intermediate, Verified 03/02/20 14:12) meperidine [From Demerol] Allergy (Verified 03/20/19 11:20) - Review Of Systems ROS: No change since H&P - Vital Signs Vital Signs: Temperature 98.0 F Pulse Rate [Right Brachial] 87 Pulse Rate [Left Brachial] 78 Pulse Rate 80 Respiratory Rate 18 Blood Pressure [Left Arm] 157/61 Blood Pressure [Right Arm] 157/67 Blood Pressure 154/65 O2 Sat by Pulse Oximetry 90 - Physical Exam Oriented: Normal Eyes: Normal Ear: Normal Nose: Normal Respiratory: Diminished Cardiovascular: Normal GI:Auscultation: Normal GI: Tenderness: Diffuse, RLQ (soft abdomen , full , slightly tympanic with Rt side tenderness . no hernias . no masses felt .), Mild. negative: Rebound, Guarding Skin: Decreased Turgur Musculoskeletal: Normal Mood Description: Calm Affect: Normal Speech Pattern: Clear, Appropriate - Laboratory and Diagnostics Result Diagrams: 03/06/20 05:20 03/06/20 05:20 Labs: 03/04/20 04:05 Urine,Clean Catch Urine Culture - Final Laboratory WBC 6.8 X10^3/uL (3.6-10.0) 03/06/20 05:20 RBC 2.50 X10^6/uL (3.5-5.4) L 03/06/20 05:20 Hgb 8.2 g/dL (12.0-16.0) L 03/06/20 05:20 Hct 23.7 % (36.0-47.0) L 03/06/20 05:20 MCV 94.8 fL (80.0-100.0) 03/06/20 05:20 MCH 32.8 pg (27.0-34.0) 03/06/20 05:20 MCHC 34.7 g/dL (33.0-35.0) 03/06/20 05:20 RDW 13.9 % (11.6-16.5) 03/06/20 05:20 Plt Count 201 X10^3/uL (150.0-450.0) 03/06/20 05:20 MPV 8.0 fL (7.4-11.0) 03/06/20 05:20 Neut % (Auto) 70.9 % (42.0-75.0) 03/06/20 05:20 Lymph % (Auto) 18.1 % (21.0-51.0) L 03/06/20 05:20 [place] % (Auto) 8.3 % (0.0-13.0) 03/06/20 05:20 Eos % (Auto) 2.4 % (0.9-2.9) 03/06/20 05:20 Baso % (Auto) 0.3 % (0.2-1.0) 03/06/20 05:20 Neut # (Auto) 4.8 x10^3/uL (2.2-4.8) 03/06/20 05:20 Lymph # (Auto) 1.2 X10^3/uL (1.3-2.9) L 03/06/20 05:20 [place] # (Auto) 0.6 x10^3/uL (0.3-0.8) 03/06/20 05:20 Eos # (Auto) 0.2 x10^3/uL (0.0-0.2) 03/06/20 05:20 Baso # (Auto) 0.0 X10^3/uL (0.0-0.1) 03/06/20 05:20 Absolute Nucleated RBC 0.0 /100WBC 03/06/20 05:20 Sodium 141 mmol/L (136-145) 03/06/20 05:20 Corrected Sodium 142 mmol/L (136-145) 03/06/20 05:20 Potassium 3.7 mmol/L (3.5-5.1) 03/06/20 05:20 Chloride 109 mmol/L (98-107) H 03/06/20 05:20 Carbon Dioxide 22.7 mmol/L (21-32) 03/06/20 05:20 BUN 18 mg/dL (7-18) 03/06/20 05:20 Creatinine 2.18 mg/dL (0.55-1.02) H 03/06/20 05:20 Est GFR (MDRD) Af Amer 28 (>60) L 03/06/20 05:20 Est GFR (MDRD) Non-Af 23 (>60) L 03/06/20 05:20 Glucose 125 mg/dL (65-99) H 03/06/20 05:20 POC Glucose (mg/dL) 111 mg/dL (65-99) H 03/06/20 06:04 Calcium 8.8 mg/dL (8.5-10.1) 03/06/20 05:20 Corrected Calcium 9.8 mg/dL (8.5-10.1) 03/06/20 05:20 Iron 41 ug/dL (50-175) L 03/03/20 05:37 Transferrin 133 mg/dL (202-364) L 03/03/20 05:37 Ferritin 252 ng/mL (8-252) 03/03/20 05:37 Total Bilirubin 0.20 mg/dL (0.2-1.0) 03/06/20 05:20 AST 17 Units/L (15-37) 03/06/20 05:20 ALT 14 Units/L (12-78) 03/06/20 05:20 Alkaline Phosphatase 56 Units/L (46-116) 03/06/20 05:20 Creatine Kinase 73 Units/L (26-192) 03/02/20 21:58 CK-MB (CK-2) 1.1 ng/mL (0-4.0) 03/02/20 21:58 CK/CKMB % Calc 1.5 % (<4) 03/02/20 21:58 Troponin I 0.05 ng/mL (0-1.5) 03/02/20 21:58 Total Protein 5.5 g/dL (6.4-8.2) L 03/06/20 05:20 Albumin 2.7 g/dL (3.4-5.0) L 03/06/20 05:20 Globulin 2.8 g/dL (2.5-4.5) 03/06/20 05:20 Albumin/Globulin Ratio 1.0 Ratio (1.1-2.1) L 03/06/20 05:20 Amylase 50 Units/L (25-115) 03/02/20 14:15 Lipase 95 Units/L (73-393) 03/02/20 14:15 Vitamin B12 291 pg/mL (193-986) 03/03/20 05:37 Folate 19.4 ng/mL (>8.6) 03/03/20 05:37 Specimen Type Clean catch urine 03/02/20 17:58 Urine Color Yellow (YELLOW) 03/02/20 17:58 Urine Appearance Clear (CLEAR) 03/02/20 17:58 Urine pH 7.0 (5.0 - 8.0) 03/02/20 17:58 Ur Specific [place] 1.015 (1.000-1.030) 03/02/20 17:58 Urine Protein 4+ (NEGATIVE) 03/02/20 17:58 Urine Glucose (UA) Negative (NEGATIVE) 03/02/20 17:58 Urine Ketones Negative (NEGATIVE) 03/02/20 17:58 Urine Occult Blood Negative (NEGATIVE) 03/02/20 17:58 Urine Nitrite Negative (NEGATIVE) 03/02/20 17:58 Urine Bilirubin Negative (NEGATIVE) 03/02/20 17:58 Urine Urobilinogen Normal (NORMAL) 03/02/20 17:58 Ur Leukocyte Esterase 1+ (NEGATIVE) 03/02/20 17:58 Urine RBC 0-2 /HPF (0-3) 03/02/20 17:58 Urine WBC 3-5 /HPF (0-5) 03/02/20 17:58 Ur Squamous Epith Cells Few /HPF (NEGATIVE) 03/02/20 17:58 Ur Renal Epithelial Cell Few /HPF (NEGATIVE) 03/02/20 17:58 Amorphous Sediment Trace /HPF (NEGATIVE) 03/02/20 17:58 Urine Bacteria Trace /HPF (NEGATIVE) 03/02/20 17:58 Ur Culture Indicated? No/not indicated 03/02/20 17:58 Tissue Pathology To follow 03/04/20 12:05 - Assessment and Plan 1: abdominal pain . Gastritis. anemia and CKD. obtain Amylase , Lipase , abdominal xray , CEA level . colonoscopy in am - Problem Patient Problems: Patient Problems CKD (chronic kidney disease) (Acute) N18.9 Anemia (Acute) D64.9 Gastritis (Acute) K29.70 Nausea & vomiting (Acute) R11.2 Hypertension (Chronic) I10
[2020-03-06 06:45] LABS: AMYLASE 37 Units/L (25-115); LIPASE 75 Units/L (73-393)
[2020-03-06] MEDS: PULMICORT NEB TX 0.5 MG NEB SCH ×2 (08:06→22:15)
[2020-03-06] MEDS: COLACE CAP 100 MG PO SCH ×2 (08:51→21:14)
[2020-03-06] MEDS: COREG TAB 25 MG PO SCH ×2 (08:51→21:14)
[2020-03-06] MEDS: PROCARDIA XL PO SCH (08:51)
[2020-03-06] MEDS: ELAVIL PO SCH (08:52)
[2020-03-06] MEDS: ACTOS PO SCH (08:52)
[2020-03-06] MEDS: FOLIC ACID TAB 1 MG PO SCH (08:52)
[2020-03-06] MEDS: ALBUMIN HUMAN 25%- 100 ML 100 ML IV SCH (08:53)
[2020-03-06] MEDS: LEVSIN/MAALOX/LIDOC VISC PO SCH ×4 (08:53→21:13)
[2020-03-06] MEDS: PEPCID 20 MG IV PREMIX* 20 MG/50 ML BAG IV SCH (08:55)
[2020-03-06] MEDS: XARELTO PO SCH (09:29)
[2020-03-06] MEDS: PROTONIX INJ 40 MG VIAL IVP SCH ×2 (09:43→21:14)
--- NOTE | 2020-03-06 11:19 | PCM.PROG ---
Progress Note Progress Note for Day of Date of Exam: 03/06/20 Subjective Subjective: Patient seen at bedside, reports slight improvement in abdominal pain. She has been tolerating liquids. Denies nausea and vomiting. She had BM yesterday, no diarrhea. Dr Toledo saw her this morning, ordered amylase/lipase, abdominal XR. He plans to do a colonoscopy tomorrow. Labs: Lipase is normal, Hgb stable at 8.2, Cr stable 2.18 Plan: will hold Xarelto due to colonoscopy planned for tomorrow, continue current diet and treatment. Monitor AM labs. Follow abd XR. Will hold Lantus as patient has been having low blood glucose, continue SSI. Past Medical Family Social History Past Med/Fam/Surg Hx: No changes since H&P Allergies: Allergies codeine Allergy (Intermediate, Verified 03/02/20 14:12) meperidine [From Demerol] Allergy (Verified 03/20/19 11:20) Review of Systems ROS: No change since H&P Vital Signs and I&O's Vital Signs: Temperature 98.2 F Pulse Rate [Right Brachial] 75 Pulse Rate [Left Brachial] 78 Pulse Rate 80 Respiratory Rate 18 Blood Pressure [Left Arm] 178/77 Blood Pressure [Right Arm] 157/67 Blood Pressure 154/65 O2 Sat by Pulse Oximetry 94 Intake and Output: Intake & Output 03/03/20 03/04/20 03/05/20 03/06/20 23:59 23:59 23:59 23:59 Intake Total 4194 / 4194 760 / 760 2550 / 2550 0 / 0 Output Total 800 / 800 600 / 600 1350 / 1350 500 / 500 Balance 3394 / 3394 160 / 160 1200 / 1200 -500 / -500 Physical Exam Oriented: Normal Eyes: Normal Ear: Normal Nose: Normal Respiratory: Diminished Cardiovascular: Normal Auscultation: Bowel Sounds: Normal Tenderness: Diffuse, RLQ (soft abdomen , full , slightly tympanic with Rt side tenderness . no hernias . no masses felt .) and Mild; negative Rebound and Guarding Skin: Decreased Turgur Musculoskeletal: Normal Mood Description: Calm Affect: Normal Speech Pattern: Clear and Appropriate Laboratory and Diagnostics Result Diagrams: 03/06/20 05:03/06/20 05:20 Labs: 03/04/20 04:05 Urine,Clean Catch Urine Culture - Final Laboratory WBC 6.8 X10^3/uL (3.6-10.0) 03/06/20 05:20 RBC 2.50 X10^6/uL (3.5-5.4) L 03/06/20 05:20 Hgb 8.2 g/dL (12.0-16.0) L 03/06/20 05:20 Hct 23.7 % (36.0-47.0) L 03/06/20 05:20 MCV 94.8 fL (80.0-100.0) 03/06/20 05:20 MCH 32.8 pg (27.0-34.0) 03/06/20 05:20 MCHC 34.7 g/dL (33.0-35.0) 03/06/20 05:20 RDW 13.9 % (11.6-16.5) 03/06/20 05:20 Plt Count 201 X10^3/uL (150.0-450.0) 03/06/20 05:20 MPV 8.0 fL (7.4-11.0) 03/06/20 05:20 Neut % (Auto) 70.9 % (42.0-75.0) 03/06/20 05:20 Lymph % (Auto) 18.1 % (21.0-51.0) L 03/06/20 05:20 [place] % (Auto) 8.3 % (0.0-13.0) 03/06/20 05:20 Eos % (Auto) 2.4 % (0.9-2.9) 03/06/20 05:20 Baso % (Auto) 0.3 % (0.2-1.0) 03/06/20 05:20 Neut # (Auto) 4.8 x10^3/uL (2.2-4.8) 03/06/20 05:20 Lymph # (Auto) 1.2 X10^3/uL (1.3-2.9) L 03/06/20 05:20 [place] # (Auto) 0.6 x10^3/uL (0.3-0.8) 03/06/20 05:20 Eos # (Auto) 0.2 x10^3/uL (0.0-0.2) 03/06/20 05:20 Baso # (Auto) 0.0 X10^3/uL (0.0-0.1) 03/06/20 05:20 Absolute Nucleated RBC 0.0 /100WBC 03/06/20 05:20 Sodium 141 mmol/L (136-145) 03/06/20 05:20 Corrected Sodium 142 mmol/L (136-145) 03/06/20 05:20 Potassium 3.7 mmol/L (3.5-5.1) 03/06/20 05:20 Chloride 109 mmol/L (98-107) H 03/06/20 05:20 Carbon Dioxide 22.7 mmol/L (21-32) 03/06/20 05:20 BUN 18 mg/dL (7-18) 03/06/20 05:20 Creatinine 2.18 mg/dL (0.55-1.02) H 03/06/20 05:20 Est GFR (MDRD) Af Amer 28 (>60) L 03/06/20 05:20 Est GFR (MDRD) Non-Af 23 (>60) L 03/06/20 05:20 Glucose 125 mg/dL (65-99) H 03/06/20 05:20 POC Glucose (mg/dL) 111 mg/dL (65-99) H 03/06/20 06:04 Calcium 8.8 mg/dL (8.5-10.1) 03/06/20 05:20 Corrected Calcium 9.8 mg/dL (8.5-10.1) 03/06/20 05:20 Iron 41 ug/dL (50-175) L 03/03/20 05:37 Transferrin 133 mg/dL (202-364) L 03/03/20 05:37 Ferritin 252 ng/mL (8-252) 03/03/20 05:37 Total Bilirubin 0.20 mg/dL (0.2-1.0) 03/06/20 05:20 AST 17 Units/L (15-37) 03/06/20 05:20 ALT 14 Units/L (12-78) 03/06/20 05:20 Alkaline Phosphatase 56 Units/L (46-116) 03/06/20 05:20 Creatine Kinase 73 Units/L (26-192) 03/02/20 21:58 CK-MB (CK-2) 1.1 ng/mL (0-4.0) 03/02/20 21:58 CK/CKMB % Calc 1.5 % (<4) 03/02/20 21:58 Troponin I 0.05 ng/mL (0-1.5) 03/02/20 21:58 Total Protein 5.5 g/dL (6.4-8.2) L 03/06/20 05:20 Albumin 2.7 g/dL (3.4-5.0) L 03/06/20 05:20 Globulin 2.8 g/dL (2.5-4.5) 03/06/20 05:20 Albumin/Globulin Ratio 1.0 Ratio (1.1-2.1) L 03/06/20 05:20 Amylase 37 Units/L (25-115) 03/06/20 05:20 Lipase 75 Units/L (73-393) 03/06/20 05:20 Vitamin B12 291 pg/mL (193-986) 03/03/20 05:37 Folate 19.4 ng/mL (>8.6) 03/03/20 05:37 Specimen Type Clean catch urine 03/02/20 17:58 Urine Color Yellow (YELLOW) 03/02/20 17:58 Urine Appearance Clear (CLEAR) 03/02/20 17:58 Urine pH 7.0 (5.0 - 8.0) 03/02/20 17:58 Ur Specific [place] 1.015 (1.000-1.030) 03/02/20 17:58 Urine Protein 4+ (NEGATIVE) 03/02/20 17:58 Urine Glucose (UA) Negative (NEGATIVE) 03/02/20 17:58 Urine Ketones Negative (NEGATIVE) 03/02/20 17:58 Urine Occult Blood Negative (NEGATIVE) 03/02/20 17:58 Urine Nitrite Negative (NEGATIVE) 03/02/20 17:58 Urine Bilirubin Negative (NEGATIVE) 03/02/20 17:58 Urine Urobilinogen Normal (NORMAL) 03/02/20 17:58 Ur Leukocyte Esterase 1+ (NEGATIVE) 03/02/20 17:58 Urine RBC 0-2 /HPF (0-3) 03/02/20 17:58 Urine WBC 3-5 /HPF (0-5) 03/02/20 17:58 Ur Squamous Epith Cells Few /HPF (NEGATIVE) 03/02/20 17:58 Ur Renal Epithelial Cell Few /HPF (NEGATIVE) 03/02/20 17:58 Amorphous Sediment Trace /HPF (NEGATIVE) 03/02/20 17:58 Urine Bacteria Trace /HPF (NEGATIVE) 03/02/20 17:58 Ur Culture Indicated? No/not indicated 03/02/20 17:58 Tissue Pathology To follow 03/04/20 12:05 Plan (1) Anemia: Status: Acute Qualifiers: Anemia type: unspecified type Qualified Code(s): D64.9 - Anemia, unspecified (2) Gastritis: Status: Acute Qualifiers: Chronicity: acute Gastritis bleeding: without bleeding Gastritis type: other gastritis Qualified Code(s): K29.00 - Acute gastritis without bleeding (3) Nausea & vomiting: Status: Acute Qualifiers: Vomiting Intractability: non-intractable Vomiting type: unspecified Qualified Code(s): R11.2 - Nausea with vomiting, unspecified (4) Hypertension: Status: Chronic Qualifiers: Hypertension type: essential hypertension Qualified Code(s): I10 - Essential (primary) hypertension (5) Diabetes: Status: Chronic Qualifiers: Diabetes mellitus complication status: with hyperglycemia 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
[2020-03-06] MEDS ORDERED: NULYTELY or GO-LYTELY PO SCH (12:00)
[2020-03-06] MEDS ORDERED: NULYTELY or GO-LYTELY PO ONE (14:00)
[2020-03-06] MEDS: NITRODUR PATCH 0.4 MG/HR TD SCH (16:57)
--- NOTE | 2020-03-06 19:07 | PCM.PROG ---
Progress Note - Progress Note for Day of Date of Exam: 03/04/20 - Subjective Subjective: IS BEING TREAED FOR INTRACTABLE NAUSEA, VOMITING, ABDOMINAL PAIN, HTN, AND ACUTE RENAL FAILURE. TODAY, SHE IS ALERT AND ORIENTED, SITTING UP IN CHAIR ON MORNING ROUNDS. SHE CONTINUES WITH COMPLAINTS OF UPPER ABDOMINAL PAIN AND WEAKNESS. ON EXAMINATION, HEART IS REGULAR IN RATE AND R HYTHM. BILATERAL LUNGS ARE NOTED WITH DIMINISHED LUNG SOUNDS THROUGHOUT. ABDOMEN IS ROUND, SOFT, AND NOTED WITH DIFFUSE TENDERNESS TO PALPATION. HER VITALS THIS MORNING ARE: 97.8-68-18-96%-148/69. LABS WERE OBTAINED. ABNORMAL LAB VALUES INCLUDE THE FOLLOWING: RBC 2.57, HGB 8.4, HCT 24.3, CHLORIDE 108, BUN 29, CREATININE 2.45, TOTAL PROTEIN 5.3, ALBUMIN 2.2. URINE CULTURE IS PENDING. WE OBTAINED A CHEST XRAY THIS MORNING. IT REVEALED: No acute cardiopulmonary disease. Borderline cardiomegaly but no signs of CHF at this time. The heart is smaller and the pleural effusions have resolved since January 08, 2020 prior. SHE IS CURRENTLY RECEIVING NORMAL SALINE AT 80ML/HR, PEPCID 20MG IV DAILY, PROTONIX 40MG PO BID, GI COCKTAIL 15ML PO QID, DILAUDID 1MG IV Q4H PRN PAIN, HUMULIN R SLIDING SCALE, AND HOME MEDICATIONS WERE RESUMED WITH THE EXCEPTION OF HER LASIX. TODAY, WE WILL CONSULT WITH DUE TO ABDOMINAL PAIN AND ANEMIA. WE WILL ALSO OBTAIN AN ABDOMEN/PELVIS CT WITH ORAL CONTRAST ONLY. WE WILL START IV PROCALAMINE AND ALBUMIN 25% IV DAILY. OTHERWISE, WE PLAN TO FOLLOW UP WITH AM LABS AND CONTINUE TO [facility]. - Past Medical Family Social History Past Med/Fam/Surg Hx: No changes since H&P Allergies: Allergies codeine Allergy (Intermediate, Verified 03/02/20 14:12) meperidine [From Demerol] Allergy (Verified 03/20/19 11:20) - Review of Systems ROS: No change since H&P - Vital Signs and I&O's Vital Signs: Temperature 97.8 F Pulse Rate [Right Brachial] 70 Pulse Rate [Left Brachial] 78 Pulse Rate 80 Respiratory Rate 18 Blood Pressure [Left Arm] 159/67 Blood Pressure [Right Arm] 157/67 Blood Pressure 154/65 O2 Sat by Pulse Oximetry 92 Intake and Output: Intake & Output 03/04/20 03/05/20 03/06/20 03/07/20 11:59 11:59 11:59 11:59 Intake Total 3694 / 3694 1460 / 1460 1850 / 1850 2120 / 2120 Output Total 1400 / 1400 650 / 650 1200 / 1200 300 / 300 Balance 2294 / 2294 810 / 810 650 / 650 1820 / 1820 - Physical Exam Oriented: Normal Eyes: Normal Ear: Normal Nose: Normal Throat: Normal Respiratory: Diminished Cardiovascular: Normal Auscultation: Bowel Sounds: Normal Palpation: Normal Tenderness: Diffuse, RLQ (soft abdomen , full , slightly tympanic with Rt side tenderness . no hernias . no masses felt .), Mild. negative: Rebound, Guarding Skin: Decreased Turgur Musculoskeletal: Normal Mood Description: Calm Affect: Normal Speech Pattern: Clear, Appropriate - Laboratory and Diagnostics Result Diagrams: 03/06/20 05:20 03/06/20 05:20 Labs: 03/04/20 04:05 Urine,Clean Catch Urine Culture - Final Laboratory WBC 6.8 X10^3/uL (3.6-10.0) 03/06/20 05:20 RBC 2.50 X10^6/uL (3.5-5.4) L 03/06/20 05:20 Hgb 8.2 g/dL (12.0-16.0) L 03/06/20 05:20 Hct 23.7 % (36.0-47.0) L 03/06/20 05:20 MCV 94.8 fL (80.0-100.0) 03/06/20 05:20 MCH 32.8 pg (27.0-34.0) 03/06/20 05:20 MCHC 34.7 g/dL (33.0-35.0) 03/06/20 05:20 RDW 13.9 % (11.6-16.5) 03/06/20 05:20 Plt Count 201 X10^3/uL (150.0-450.0) 03/06/20 05:20 MPV 8.0 fL (7.4-11.0) 03/06/20 05:20 Neut % (Auto) 70.9 % (42.0-75.0) 03/06/20 05:20 Lymph % (Auto) 18.1 % (21.0-51.0) L 03/06/20 05:20 [place] % (Auto) 8.3 % (0.0-13.0) 03/06/20 05:20 Eos % (Auto) 2.4 % (0.9-2.9) 03/06/20 05:20 Baso % (Auto) 0.3 % (0.2-1.0) 03/06/20 05:20 Neut # (Auto) 4.8 x10^3/uL (2.2-4.8) 03/06/20 05:20 Lymph # (Auto) 1.2 X10^3/uL (1.3-2.9) L 03/06/20 05:20 [place] # (Auto) 0.6 x10^3/uL (0.3-0.8) 03/06/20 05:20 Eos # (Auto) 0.2 x10^3/uL (0.0-0.2) 03/06/20 05:20 Baso # (Auto) 0.0 X10^3/uL (0.0-0.1) 03/06/20 05:20 Absolute Nucleated RBC 0.0 /100WBC 03/06/20 05:20 Sodium 141 mmol/L (136-145) 03/06/20 05:20 Corrected Sodium 142 mmol/L (136-145) 03/06/20 05:20 Potassium 3.7 mmol/L (3.5-5.1) 03/06/20 05:20 Chloride 109 mmol/L (98-107) H 03/06/20 05:20 Carbon Dioxide 22.7 mmol/L (21-32) 03/06/20 05:20 BUN 18 mg/dL (7-18) 03/06/20 05:20 Creatinine 2.18 mg/dL (0.55-1.02) H 03/06/20 05:20 Est GFR (MDRD) Af Amer 28 (>60) L 03/06/20 05:20 Est GFR (MDRD) Non-Af 23 (>60) L 03/06/20 05:20 Glucose 125 mg/dL (65-99) H 03/06/20 05:20 POC Glucose (mg/dL) 105 mg/dL (65-99) H 03/06/20 16:24 Calcium 8.8 mg/dL (8.5-10.1) 03/06/20 05:20 Corrected Calcium 9.8 mg/dL (8.5-10.1) 03/06/20 05:20 Iron 41 ug/dL (50-175) L 03/03/20 05:37 Transferrin 133 mg/dL (202-364) L 03/03/20 05:37 Ferritin 252 ng/mL (8-252) 03/03/20 05:37 Total Bilirubin 0.20 mg/dL (0.2-1.0) 03/06/20 05:20 AST 17 Units/L (15-37) 03/06/20 05:20 ALT 14 Units/L (12-78) 03/06/20 05:20 Alkaline Phosphatase 56 Units/L (46-116) 03/06/20 05:20 Creatine Kinase 73 Units/L (26-192) 03/02/20 21:58 CK-MB (CK-2) 1.1 ng/mL (0-4.0) 03/02/20 21:58 CK/CKMB % Calc 1.5 % (<4) 03/02/20 21:58 Troponin I 0.05 ng/mL (0-1.5) 03/02/20 21:58 Total Protein 5.5 g/dL (6.4-8.2) L 03/06/20 05:20 Albumin 2.7 g/dL (3.4-5.0) L 03/06/20 05:20 Globulin 2.8 g/dL (2.5-4.5) 03/06/20 05:20 Albumin/Globulin Ratio 1.0 Ratio (1.1-2.1) L 03/06/20 05:20 Amylase 37 Units/L (25-115) 03/06/20 05:20 Lipase 75 Units/L (73-393) 03/06/20 05:20 Vitamin B12 291 pg/mL (193-986) 03/03/20 05:37 Folate 19.4 ng/mL (>8.6) 03/03/20 05:37 Specimen Type Clean catch urine 03/02/20 17:58 Urine Color Yellow (YELLOW) 03/02/20 17:58 Urine Appearance Clear (CLEAR) 03/02/20 17:58 Urine pH 7.0 (5.0 - 8.0) 03/02/20 17:58 Ur Specific [place] 1.015 (1.000-1.030) 03/02/20 17:58 Urine Protein 4+ (NEGATIVE) 03/02/20 17:58 Urine Glucose (UA) Negative (NEGATIVE) 03/02/20 17:58 Urine Ketones Negative (NEGATIVE) 03/02/20 17:58 Urine Occult Blood Negative (NEGATIVE) 03/02/20 17:58 Urine Nitrite Negative (NEGATIVE) 03/02/20 17:58 Urine Bilirubin Negative (NEGATIVE) 03/02/20 17:58 Urine Urobilinogen Normal (NORMAL) 03/02/20 17:58 Ur Leukocyte Esterase 1+ (NEGATIVE) 03/02/20 17:58 Urine RBC 0-2 /HPF (0-3) 03/02/20 17:58 Urine WBC 3-5 /HPF (0-5) 03/02/20 17:58 Ur Squamous Epith Cells Few /HPF (NEGATIVE) 03/02/20 17:58 Ur Renal Epithelial Cell Few /HPF (NEGATIVE) 03/02/20 17:58 Amorphous Sediment Trace /HPF (NEGATIVE) 03/02/20 17:58 Urine Bacteria Trace /HPF (NEGATIVE) 03/02/20 17:58 Ur Culture Indicated? No/not indicated 03/02/20 17:58 Tissue Pathology To follow 03/04/20 12:05 - Plan (1) Gastritis Status: Acute Qualifiers: Gastritis type: unspecified gastritis Chronicity: acute Gastritis bleeding: presence of bleeding unspecified Qualified Code(s): K29.00 - Acute gastritis without bleeding Plan: NORMAL SALINE AT 40ML/HR, IV PROCAL, ALBUMIN 25% IV DAILY, PEPCID 20MG IV DAILY, PROTONIX 40MG PO BID, GI COCKTAIL 15ML PO QID, DILAUDID 1MG IV Q4H PRN PAIN, HUMULIN R SLIDING SCALE, AND HOME MEDICATIONS WERE RESUMED (2) Anemia Status: Acute Qualifiers: Anemia type: iron deficiency Iron deficiency anemia type: chronic blood loss Qualified Code(s): D50.0 - Iron deficiency anemia secondary to blood loss (chronic) Plan: CONSULT FOR POSSIBLE SCOPE, CONTINUE TO MONITOR (3) Renal failure (ARF), acute on chronic Status: Acute Qualifiers: Acute renal failure type: unspecified Chronic kidney disease stage: unspecified stage Qualified Code(s): N17.9 - Acute kidney failure, unspecified; N18.9 - Chronic kidney disease, unspecified Plan: IV FLUIDS, HOLD LASIX, CONTINUE TO MONITOR (4) Hypertension Status: Chronic Qualifiers: Hypertension type: secondary to endocrine disorders Qualified Code(s): I15.2 - Hypertension secondary to endocrine disorders Plan: CONTINUE HOME MEDICATIONS, CONTINUE TO MONITOR (5) Diabetes Status: Chronic Qualifiers: Diabetes mellitus type: type 2 Diabetes mellitus senior care insulin use: unspecified terminologist insulin use status Diabetes mellitus complication s tatus: with hyperglycemia Qualified Code(s): E11.65 - Type 2 diabetes mellitus with hyperglycemia Plan: CONTINUE HOME MEDS, CONTINUE TO MONTIOR
[2020-03-06] MEDS: SNACK - Diabetic Appropriate PO SCH (20:08)
[2020-03-06] MEDS: LIPITOR TAB 40 MG PO SCH (21:14)
[2020-03-06] MEDS: COZAAR PO SCH (21:14)
[2020-03-07] MEDS: APRESOLINE TAB 25 MG PO SCH ×3 (05:13→20:59)
[2020-03-07 06:30] LABS: BASOPHILS % (AUTO) 0.5 % (0.2-1.0); EOSINOPHILS # (AUTO) 0.1 x10^3/uL (0.0-0.2); EOSINOPHILS % (AUTO) 2.1 % (0.9-2.9); HEMATOCRIT 22.9 % (36.0-47.0); LYMPHOCYTES # (AUTO) 1.2 X10^3/uL (1.3-2.9); LYMPHOCYTES % (AUTO) 21.4 % (21.0-51.0); MEAN CORPUSCULAR HEMOGLOBIN 33.3 pg (27.0-34.0); MEAN PLATELET VOLUME 8.1 fL (7.4-11.0); MONOCYTES # (AUTO) 0.6 x10^3/uL (0.3-0.8); MONOCYTES % (AUTO) 10.7 % (0.0-13.0); NEUTROPHILS # (AUTO) 3.8 x10^3/uL (2.2-4.8); NEUTROPHILS % (AUTO) 65.3 % (42.0-75.0); PLATELET COUNT 180 X10^3/uL (150.0-450.0); RED BLOOD COUNT 2.41 X10^6/uL (3.5-5.4); RED CELL DISTRIBUTION WIDTH 13.8 % (11.6-16.5); WHITE BLOOD COUNT 5.8 X10^3/uL (3.6-10.0)
[2020-03-07 06:51] LABS: ALANINE AMINOTRANSFERASE 12 Units/L (12-78); ALBUMIN 2.7 g/dL (3.4-5.0); ALKALINE PHOSPHATASE 53 Units/L (46-116); ASPARTATE AMINO TRANSFERASE 15 Units/L (15-37); BLOOD UREA NITROGEN 19 mg/dL (7-18); CALCIUM 8.8 mg/dL (8.5-10.1); CARBON DIOXIDE 23.9 mmol/L (21-32); CHLORIDE 112 mmol/L (98-107); COR CA(FOR HYPOALB) 9.8 mg/dL (8.5-10.1); CREATININE 2.19 mg/dL (0.55-1.02); SODIUM 145 mmol/L (136-145); TOTAL PROTEIN 5.4 g/dL (6.4-8.2); eGFR NON BLACK RACES 23 (>60)
--- NOTE | 2020-03-07 07:44 | RAD ---
HISTORYNausea, abdominal painSTUDYACUTE ABDOMEN [id number] heart is within normal limits in size. The laney are normal. Haziness at the right lung bases due in part to a small right pleural effusion. Right basilar infiltrate may also be present. The abdominal gas pattern is nonspecific and nonobstructive. There is a moderately large amount of stool throughout the colon. No pneumoperitoneum is identified. No abnormal masses or abnormal calcifications are identified.IMPRESSIONNo definite acute abdominal abnormality.Moderately large amount of stool within the colonRight pleural effusion and small right basilar infiltrateElectronically signed by: JOSEPHINE ASHFORD (March 07, 2020 07:43:38)
[2020-03-07] MEDS: PULMICORT NEB TX 0.5 MG NEB SCH ×2 (09:58→21:30)
--- NOTE | 2020-03-07 11:15 | PCM.PROG ---
Progress Note - Progress Note for Day of Date of Exam: 03/07/20 - Subjective Subjective: IS BEING TREATED FOR INTRACTABLE NAUSEA, VOMITING, ABDOMINAL PAIN, HTN, AND ACUTE RENAL FAILURE. TODAY, SHE IS ALERT AND ORIENTED, SITTING UP IN CHAIR ON MORNING ROUNDS. SHE CONTINUES WITH COMPLAINTS OF UPPER ABDOMINAL PAIN AND WEAKNESS, BUT REPORTS SLIGHT IMPROVEMENT IN SYMPTOMS. SHE HAD AN EGD ON SATURDAY, WHICH REVEALED MODERATE GASTRITIS, SMALL HIATAL HERNIA, NO BLEEDING, NO ULCERS OR NEOPLASM. BIOPSIES WERE TAKEN. ON EXAMINATION, HEART IS REGULAR IN RATE AND RHYTHM. BILATERAL LUNGS ARE NOTED WITH DIMINISHED LUNG SOUNDS THROUGHOUT. ABDOMEN IS ROUND, SOFT, AND NOTED WITH DIFFUSE TENDERNESS TO PALPATION. HER VITALS THIS MORNING ARE: 98.6-80-20-93%-158/65. LABS WERE OBTAINED. ABNORMAL LAB VALUES INCLUDE THE FOLLOWING: RBC 2.41, HGB 8.0, HCT 22.9, CHLORIDE 112, BUN 19, CREATININE 2.19, GLUCOSE 101, TOTAL PROTEIN 5.4, ALBUMIN 2.7. STOOL POSITIVE FOR OCCULT BLOOD. SHE IS CURRENTLY RECEIVING NORMAL SALINE AT 40ML/HR, PROCAL AT 40 ML/HR, ALBUMIN 25% IV DAILY, PEPCID 20MG IV DAILY, PROTONIX 40MG PO BID, GI COCKTAIL 15ML PO QID, DILAUDID 1MG IV Q4H PRN PAIN, HUMULIN R SLIDING SCALE, AND HOME MEDICATIONS WERE RESUMED WITH THE EXCEPTION OF HER LASIX. XARELTO HAS BEEN HELD. PLANS FOR A COLONOSCOPY TODAY. WE ARE IN AGREEMENT WITH PLANS. OTHERWISE, WE PLAN TO FOLLOW UP WITH AM LABS AND CONTINUE TO [facility]. - Past Medical Family Social History Past Med/Fam/Surg Hx: No changes since H&P Allergies: Allergies codeine Allergy (Intermediate, Verified 03/02/20 14:12) meperidine [From Demerol] Allergy (Verified 03/20/19 11:20) - Review of Systems ROS: No change since H&P - Vital Signs and I&O's Vital Signs: Temperature 98.6 F Pulse Rate [Right Brachial] 69 Pulse Rate [Left Brachial] 80 Pulse Rate 78 Respiratory Rate 20 Blood Pressure [Left Arm] 158/65 Blood Pressure [Right Arm] 157/67 Blood Pressure 154/65 O2 Sat by Pulse Oximetry 92 Intake and Output: Intake & Output 03/04/20 03/05/20 03/06/2018/20 11:59 11:59 11:59 11:59 Intake Total 3694 / 3694 1460 / 1460 1850 / 1850 2970 / 2970 Output Total 1400 / 1400 650 / 650 1200 / 1200 800 / 800 Balance 2294 / 2294 810 / 810 650 / 650 2170 / 2170 - Physical Exam Oriented: Normal Eyes: Normal Ear: Normal Nose: Normal Throat: Normal Respiratory: Diminished Cardiovascular: Normal Auscultation: Bowel Sounds: Normal Palpation: Normal Tenderness: Diffuse, Mild. negative: Rebound, Guarding Skin: Decreased Turgur Musculoskeletal: Normal Mood Description: Calm Affect: Normal Speech Pattern: Clear, Appropriate - Laboratory and Diagnostics Result Diagrams: 03/07/20 05:51 03/07/20 05:51 Labs: 03/04/20 04:05 Urine,Clean Catch Urine Culture - Final Laboratory WBC 5.8 X10^3/uL (3.6-10.0) 03/07/20 05:51 RBC 2.41 X10^6/uL (3.5-5.4) L 03/07/20 05:51 Hgb 8.0 g/dL (12.0-16.0) L 03/07/20 05:51 Hct 22.9 % (36.0-47.0) L 03/07/20 05:51 MCV 95.0 fL (80.0-100.0) 03/07/20 05:51 MCH 33.3 pg (27.0-34.0) 03/07/20 05:51 MCHC 35.0 g/dL (33.0-35.0) 03/07/20 05:51 RDW 13.8 % (11.6-16.5) 03/07/20 05:51 Plt Count 180 X10^3/uL (150.0-450.0) 03/07/20 05:51 MPV 8.1 fL (7.4-11.0) 03/07/20 05:51 Neut % (Auto) 65.3 % (42.0-75.0) 03/07/20 05:51 Lymph % (Auto) 21.4 % (21.0-51.0) 03/07/20 05:51 [place] % (Auto) 10.7 % (0.0-13.0) 03/07/20 05:51 Eos % (Auto) 2.1 % (0.9-2.9) 03/07/20 05:51 Baso % (Auto) 0.5 % (0.2-1.0) 03/07/20 05:51 Neut # (Auto) 3.8 x10^3/uL (2.2-4.8) 03/07/20 05:51 Lymph # (Auto) 1.2 X10^3/uL (1.3-2.9) L 03/07/20 05:51 [place] # (Auto) 0.6 x10^3/uL (0.3-0.8) 03/07/20 05:51 Eos # (Auto) 0.1 x10^3/uL (0.0-0.2) 03/07/20 05:51 Baso # (Auto) 0.0 X10^3/uL (0.0-0.1) 03/07/20 05:51 Absolute Nucleated RBC 0.0 /100WBC 03/07/20 05:51 Sodium 145 mmol/L (136-145) 03/07/20 05:51 Corrected Sodium TNP 03/07/20 05:51 Potassium 3.8 mmol/L (3.5-5.1) 03/07/20 05:51 Chloride 112 mmol/L (98-107) H 03/07/20 05:51 Carbon Dioxide 23.9 mmol/L (21-32) 03/07/20 05:51 BUN 19 mg/dL (7-18) H 03/07/20 05:51 Creatinine 2.19 mg/dL (0.55-1.02) H 03/07/20 05:51 Est GFR (MDRD) Af Amer 27 (>60) L 03/07/20 05:51 Est GFR (MDRD) Non-Af 23 (>60) L 03/07/20 05:51 Glucose 101 mg/dL (65-99) H 03/07/20 05:51 POC Glucose (mg/dL) 93 mg/dL (65-99) 03/07/20 05:42 Calcium 8.8 mg/dL (8.5-10.1) 03/07/20 05:51 Corrected Calcium 9.8 mg/dL (8.5-10.1) 03/07/20 05:51 Iron 41 ug/dL (50-175) L 03/03/20 05:37 Transferrin 133 mg/dL (202-364) L 03/03/20 05:37 Ferritin 252 ng/mL (8-252) 03/03/20 05:37 Total Bilirubin 0.30 mg/dL (0.2-1.0) 03/07/20 05:51 AST 15 Units/L (15-37) 03/07/20 05:51 ALT 12 Units/L (12-78) 03/07/20 05:51 Alkaline Phosphatase 53 Units/L (46-116) 03/07/20 05:51 Creatine Kinase 73 Units/L (26-192) 03/02/20 21:58 CK-MB (CK-2) 1.1 ng/mL (0-4.0) 03/02/20 21:58 CK/CKMB % Calc 1.5 % (<4) 03/02/20 21:58 Troponin I 0.05 ng/mL (0-1.5) 03/02/20 21:58 Total Protein 5.4 g/dL (6.4-8.2) L 03/07/20 05:51 Albumin 2.7 g/dL (3.4-5.0) L 03/07/20 05:51 Globulin 2.7 g/dL (2.5-4.5) 03/07/20 05:51 Albumin/Globulin Ratio 1.0 Ratio (1.1-2.1) L 03/07/20 05:51 Amylase 37 Units/L (25-115) 03/06/20 05:20 Lipase 75 Units/L (73-393) 03/06/20 05:20 Vitamin B12 291 pg/mL (193-986) 03/03/20 05:37 Folate 19.4 ng/mL (>8.6) 03/03/20 05:37 Specimen Type Clean catch urine 03/02/20 17:58 Urine Color Yellow (YELLOW) 03/02/20 17:58 Urine Appearance Clear (CLEAR) 03/02/20 17:58 Urine pH 7.0 (5.0 - 8.0) 03/02/20 17:58 Ur Specific [place] 1.015 (1.000-1.030) 03/02/20 17:58 Urine Protein 4+ (NEGATIVE) 03/02/20 17:58 Urine Glucose (UA) Negative (NEGATIVE) 03/02/20 17:58 Urine Ketones Negative (NEGATIVE) 03/02/20 17:58 Urine Occult Blood Negative (NEGATIVE) 03/02/20 17:58 Urine Nitrite Negative (NEGATIVE) 03/02/20 17:58 Urine Bilirubin Negative (NEGATIVE) 03/02/20 17:58 Urine Urobilinogen Normal (NORMAL) 03/02/20 17:58 Ur Leukocyte Esterase 1+ (NEGATIVE) 03/02/20 17:58 Urine RBC 0-2 /HPF (0-3) 03/02/20 17:58 Urine WBC 3-5 /HPF (0-5) 03/02/20 17:58 Ur Squamous Epith Cells Few /HPF (NEGATIVE) 03/02/20 17:58 Ur Renal Epithelial Cell Few /HPF (NEGATIVE) 03/02/20 17:58 Amorphous Sediment Trace /HPF (NEGATIVE) 03/02/20 17:58 Urine Bacteria Trace /HPF (NEGATIVE) 03/02/20 17:58 Ur Culture Indicated? No/not indicated 03/02/20 17:58 Stool Description 15 g. liquid 03/06/20 21:53 Stl Occult Blood (IFOB) Positive (NEGATIVE) A 03/06/20 21:53 Tissue Pathology To follow 03/04/20 12:05 - Plan (1) Gastritis Status: Acute Qualifiers: Gastritis type: unspecified gastritis Chronicity: acute Gastritis bleeding: presence of bleeding unspecified Qualified Code(s): K29.00 - Acute gastritis without bleeding Plan: NORMAL SALINE AT 40ML/HR, IV PROCAL, ALBUMIN 25% IV DAILY, PEPCID 20MG IV DAILY, PROTONIX 40MG PO BID, GI COCKTAIL 15ML PO QID, DILAUDID 1MG IV Q4H PRN PAIN, HUMULIN R SLIDING SCALE, AND HOME MEDICATIONS WERE RESUMED (2) Anemia Status: Acute Qualifiers: Anemia type: iron deficiency Iron deficiency anemia type: chronic blood loss Qualified Code(s): D50.0 - Iron deficiency anemia secondary to blood loss (chronic) Plan: CONSULT FOR POSSIBLE SCOPE, CONTINUE TO MONITOR (3) Renal failure (ARF), acute on chronic Status: Acute Qualifiers: Acute renal failure type: unspecified Chronic kidney disease stage: unspecified stage Qualified Code(s): N17.9 - Acute kidney failure, unspecified; N18.9 - Chronic kidney disease, unspecified Plan: IV FLUIDS, HOLD LASIX, CONTINUE TO MONITOR (4) Hypertension Status: Chronic Qualifiers: Hypertension type: secondary to endocrine disorders Qualified Code(s): I15.2 - Hypertension secondary to endocrine disorders Plan: CONTINUE HOME MEDICATIONS, CONTINUE TO MONITOR (5) Diabetes Status: Chronic Qualifiers: Diabetes mellitus type: type 2 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
[2020-03-07] MEDS ORDERED: DIPRIVAN VIAL 20 ML ONE (11:37)
[2020-03-07] MEDS: PEPCID 20 MG IV PREMIX* 20 MG/50 ML BAG IV SCH (13:30)
[2020-03-07] MEDS: PROTONIX INJ 40 MG VIAL IVP SCH ×2 (13:31→20:57)
[2020-03-07] MEDS: PROCARDIA XL PO SCH (13:31)
[2020-03-07] MEDS: FOLIC ACID TAB 1 MG PO SCH (13:32)
[2020-03-07] MEDS: COREG TAB 25 MG PO SCH ×2 (13:32→20:57)
[2020-03-07] MEDS: ELAVIL PO SCH (13:32)
[2020-03-07] MEDS: COLACE CAP 100 MG PO SCH ×3 (13:33→20:57)
[2020-03-07] MEDS: MILK OF MAGNESIA PO SCH ×2 (13:33→18:51)
[2020-03-07] MEDS: ACTOS PO SCH (13:33)
[2020-03-07] MEDS: ALBUMIN HUMAN 25%- 100 ML 100 ML IV SCH (13:38)
[2020-03-07] MEDS: LEVSIN/MAALOX/LIDOC VISC PO SCH ×4 (13:42→20:58)
[2020-03-07] MEDS: NITRODUR PATCH 0.4 MG/HR TD SCH (17:30)
[2020-03-07] MEDS: SNACK - Diabetic Appropriate PO SCH (20:56)
[2020-03-07] MEDS: LIPITOR TAB 40 MG PO SCH (20:57)
[2020-03-07] MEDS: COZAAR PO SCH (20:58)
[2020-03-07] MEDS: MIRALAX POWDER (1 DOSE 17 G) PO SCH (20:59)
[2020-03-07] MEDS: BENTYL CAP 10 MG PO PRN (21:00)
[2020-03-08] MEDS: NS 1000 ML 1,000 ML IV SCH ×2 (00:01→20:13)
[2020-03-08] MEDS: APRESOLINE TAB 25 MG PO SCH ×3 (05:10→21:17)
[2020-03-08 06:11] LABS: BASOPHILS % (AUTO) 0.4 % (0.2-1.0); EOSINOPHILS # (AUTO) 0.1 x10^3/uL (0.0-0.2); EOSINOPHILS % (AUTO) 2.7 % (0.9-2.9); HEMATOCRIT 21.7 % (36.0-47.0); HEMOGLOBIN 7.5 g/dL (12.0-16.0); LYMPHOCYTES # (AUTO) 1.3 X10^3/uL (1.3-2.9); LYMPHOCYTES % (AUTO) 24.1 % (21.0-51.0); MEAN CORPUSCULAR HEMOGLOBIN 33.1 pg (27.0-34.0); MEAN CORPUSCULAR HGB CONC 34.5 g/dL (33.0-35.0); MEAN PLATELET VOLUME 8.7 fL (7.4-11.0); MONOCYTES # (AUTO) 0.6 x10^3/uL (0.3-0.8); MONOCYTES % (AUTO) 11.9 % (0.0-13.0); NEUTROPHILS # (AUTO) 3.2 x10^3/uL (2.2-4.8); NEUTROPHILS % (AUTO) 60.9 % (42.0-75.0); PLATELET COUNT 160 X10^3/uL (150.0-450.0); RED BLOOD COUNT 2.26 X10^6/uL (3.5-5.4); RED CELL DISTRIBUTION WIDTH 13.9 % (11.6-16.5); WHITE BLOOD COUNT 5.2 X10^3/uL (3.6-10.0)
[2020-03-08 06:18] LABS: ALBUMIN 2.7 g/dL (3.4-5.0); CALCIUM 8.7 mg/dL (8.5-10.1); CARBON DIOXIDE 26.7 mmol/L (21-32); COR CA(FOR HYPOALB) 9.7 mg/dL (8.5-10.1); CREATININE 2.43 mg/dL (0.55-1.02); TOTAL PROTEIN 5.2 g/dL (6.4-8.2)
[2020-03-08 06:32] LABS: HYPOCHROMASIA SLIGHT; PLATELET MORPHOLOGY COMMENT NORMAL (NORMAL)
[2020-03-08] MEDS: ALBUMIN HUMAN 25%- 100 ML 100 ML IV SCH (08:38)
[2020-03-08] MEDS: PEPCID 20 MG IV PREMIX* 20 MG/50 ML BAG IV SCH (08:39)
[2020-03-08] MEDS: PROCARDIA XL PO SCH (08:39)
[2020-03-08] MEDS: LEVSIN/MAALOX/LIDOC VISC PO SCH ×4 (08:39→20:11)
[2020-03-08] MEDS: COREG TAB 25 MG PO SCH ×2 (08:40→20:11)
[2020-03-08] MEDS: PROTONIX INJ 40 MG VIAL IVP SCH ×2 (08:40→20:13)
[2020-03-08] MEDS: COLACE CAP 100 MG PO SCH ×2 (08:40→20:11)
[2020-03-08] MEDS: FOLIC ACID TAB 1 MG PO SCH (08:40)
[2020-03-08] MEDS: ELAVIL PO SCH (08:40)
[2020-03-08] MEDS: ACTOS PO SCH (08:40)
[2020-03-08] MEDS: PULMICORT NEB TX 0.5 MG NEB SCH ×2 (09:10→20:39)
[2020-03-08] MEDS ORDERED: PROCRIT or EPOGEN VIAL 10,000 UNITS SC ONE (09:56)
[2020-03-08] MEDS ORDERED: DUONEB 0.5 MG/3 MG (3 mL) NEB ONE (13:32)
--- NOTE | 2020-03-08 15:21 | PCM.PROG ---
Progress Note - Progress Note for Day of Date of Exam: 03/08/20 - Subjective Subjective: IS BEING TREATED FOR INTRACTABLE NAUSEA, VOMITING, ABDOMINAL PAIN, HTN, AND ACUTE RENAL FAILURE. TODAY, SHE IS ALERT AND ORIENTED, SITTING UP IN CHAIR ON MORNING ROUNDS. SHE CONTINUES WITH COMPLAINTS OF UPPER ABDOMINAL PAIN AND WEAKNESS, BUT REPORTS SLIGHT IMPROVEMENT IN SYMPTOMS. SHE HAD AN EGD ON SATURDAY, WHICH REVEALED MODERATE GASTRITIS, SMALL HIATAL HERNIA, NO BLEEDING, NO ULCERS OR NEOPLASM. BIOPSIES WERE TAKEN. COLONOSCOPY WAS ATTEMPTED YESTERDAY, BUT WAS UNSUCCESSFUL DUE TO POOR BOWEL PREP. ON EXAMINATION, HEART IS REGULAR IN RATE AND RHYTHM. BILATERAL LUNGS ARE NOTED WITH DIMINISHED LUNG SOUNDS THROUGHOUT. ABDOMEN IS ROUND, SOFT, AND NOTED WITH DIFFUSE TENDERNESS TO PALPATION. HER VITALS THIS MORNING ARE: 98.2-75-18-91%-142/67. LABS WERE OBTAINED. ABNORMAL LAB VALUES INCLUDE THE FOLLOWING: RBC 2.26, HGB 7.5, HCT 21.7, CHLORIDE 109, BUN 21, CREATININE 2.43, GLUCOSE 122, AST 10, ALT 11, TOTAL PROTEIN 5.2, ALBUMIN 2.7. STOOL POSITIVE FOR OCCULT BLOOD. SHE IS CURRENTLY RECEIVING NORMAL SALINE AT 40ML/HR, PROCAL AT 40 ML/HR, ALBUMIN 25% IV DAILY, PEPCID 20MG IV DAILY, PROTONIX 40MG PO BID, GI COCKTAIL 15ML PO QID, DILAUDID 1MG IV Q4H PRN PAIN, HUMULIN R SLIDING SCALE, AND HOME MEDICATIONS WERE RESUMED WITH THE EXCEPTION OF HER LASIX. XARELTO HAS BEEN HELD. TODAY, WE WILL DISCONTINUE THE PROCAL, INCREASE IVF TO 120ML/HR, AND ADMINISTER PROCRIT 5,000UNITS SC X 1 DOSE. OTHERWISE, WE PLAN TO FOLLOW UP WITH AM LABS AND CONTINUE TO [facility]. - Past Medical Family Social History Past Med/Fam/Surg Hx: No changes since H&P Allergies: Allergies codeine Allergy (Intermediate, Verified 03/02/20 14:12) meperidine [From Demerol] Allergy (Verified 03/20/19 11:20) - Review of Systems ROS: No change since H&P - Vital Signs and I&O's Vital Signs: Temperature 97.7 F Pulse Rate [Right Brachial] 78 Pulse Rate [Left Brachial] 75 Pulse Rate 81 Respiratory Rate 20 Blood Pressure [Left Arm] 166/88 Blood Pressure [Right Arm] 176/77 Blood Pressure 154/65 O2 Sat by Pulse Oximetry 94 Intake and Output: Intake & Output 03/06/20 03/07/20 03/08/20 03/09/20 11:59 11:59 11:59 11:59 Intake Total 1850 / 1850 2970 / 2970 2280 / 2280 Output Total 1200 / 1200 800 / 800 525 / 525 Balance 650 / 650 2170 / 2170 1755 / 1755 - Physical Exam Oriented: Normal Eyes: Normal Ear: Normal Nose: Normal Throat: Normal Respiratory: Diminished Cardiovascular: Normal Auscultation: Bowel Sounds: Normal Tenderness: Diffuse, Mild. negative: Rebound, Guarding Skin: Decreased Turgur Musculoskeletal: Normal Mood Description: Calm Affect: Normal Speech Pattern: Clear, Appropriate - Laboratory and Diagnostics Result Diagrams: 03/08/20 05:37 03/08/20 05:37 Labs: 03/04/20 04:05 Urine,Clean Catch Urine Culture - Final Laboratory WBC 5.2 X10^3/uL (3.6-10.0) 03/08/20 05:37 RBC 2.26 X10^6/uL (3.5-5.4) L 03/08/20 05:37 Hgb 7.5 g/dL (12.0-16.0) L 03/08/20 05:37 Hct 21.7 % (36.0-47.0) L 03/08/20 05:37 MCV 96.0 fL (80.0-100.0) 03/08/20 05:37 MCH 33.1 pg (27.0-34.0) 03/08/20 05:37 MCHC 34.5 g/dL (33.0-35.0) 03/08/20 05:37 RDW 13.9 % (11.6-16.5) 03/08/20 05:37 Plt Count 160 X10^3/uL (150.0-450.0) 03/08/20 05:37 Plt Count Comment Adequate (ADEQUATE) 03/08/20 05:37 MPV 8.7 fL (7.4-11.0) 03/08/20 05:37 Neut % (Auto) 60.9 % (42.0-75.0) 03/08/20 05:37 Lymph % (Auto) 24.1 % (21.0-51.0) 03/08/20 05:37 [place] % (Auto) 11.9 % (0.0-13.0) 03/08/20 05:37 Eos % (Auto) 2.7 % (0.9-2.9) 03/08/20 05:37 Baso % (Auto) 0.4 % (0.2-1.0) 03/08/20 05:37 Neut # (Auto) 3.2 x10^3/uL (2.2-4.8) 03/08/20 05:37 Lymph # (Auto) 1.3 X10^3/uL (1.3-2.9) 03/08/20 05:37 [place] # (Auto) 0.6 x10^3/uL (0.3-0.8) 03/08/20 05:37 Eos # (Auto) 0.1 x10^3/uL (0.0-0.2) 03/08/20 05:37 Baso # (Auto) 0.0 X10^3/uL (0.0-0.1) 03/08/20 05:37 Absolute Nucleated RBC 0.1 /100WBC 03/08/20 05:37 Plt Morphology Comment Normal (NORMAL) 03/08/20 05:37 RBC Morphology Abnormal (NORMAL) A 03/08/20 05:37 Hypochromasia Slight A 03/08/20 05:37 Sodium 141 mmol/L (136-145) 03/08/20 05:37 Corrected Sodium 142 mmol/L (136-145) 03/08/20 05:37 Potassium 4.0 mmol/L (3.5-5.1) 03/08/20 05:37 Chloride 109 mmol/L (98-107) H 03/08/20 05:37 Carbon Dioxide 26.7 mmol/L (21-32) 03/08/20 05:37 BUN 21 mg/dL (7-18) H 03/08/20 05:37 Creatinine 2.43 mg/dL (0.55-1.02) H 03/08/20 05:37 Est GFR (MDRD) Af Amer 24 (>60) L 03/08/20 05:37 Est GFR (MDRD) Non-Af 20 (>60) L 03/08/20 05:37 Glucose 122 mg/dL (65-99) H 03/08/20 05:37 POC Glucose (mg/dL) 110 mg/dL (65-99) H 03/08/20 11:18 Calcium 8.7 mg/dL (8.5-10.1) 03/08/20 05:37 Corrected Calcium 9.7 mg/dL (8.5-10.1) 03/08/20 05:37 Iron 41 ug/dL (50-175) L 03/03/20 05:37 Transferrin 133 mg/dL (202-364) L 03/03/20 05:37 Ferritin 252 ng/mL (8-252) 03/03/20 05:37 Total Bilirubin 0.20 mg/dL (0.2-1.0) 03/08/20 05:37 AST 10 Units/L (15-37) L 03/08/20 05:37 ALT 11 Units/L (12-78) L 03/08/20 05:37 Alkaline Phosphatase 50 Units/L (46-116) 03/08/20 05:37 Creatine Kinase 73 Units/L (26-192) 03/02/20 21:58 CK-MB (CK-2) 1.1 ng/mL (0-4.0) 03/02/20 21:58 CK/CKMB % Calc 1.5 % (<4) 03/02/20 21:58 Troponin I 0.05 ng/mL (0-1.5) 03/02/20 21:58 Total Protein 5.2 g/dL (6.4-8.2) L 03/08/20 05:37 Albumin 2.7 g/dL (3.4-5.0) L 03/08/20 05:37 Globulin 2.5 g/dL (2.5-4.5) 03/08/20 05:37 Albumin/Globulin Ratio 1.1 Ratio (1.1-2.1) 03/08/20 05:37 Amylase 37 Units/L (25-115) 03/06/20 05:20 Lipase 75 Units/L (73-393) 03/06/20 05:20 Vitamin B12 291 pg/mL (193-986) 03/03/20 05:37 Folate 19.4 ng/mL (>8.6) 03/03/20 05:37 Specimen Type Clean catch urine 03/02/20 17:58 Urine Color Yellow (YELLOW) 03/02/20 17:58 Urine Appearance Clear (CLEAR) 03/02/20 17:58 Urine pH 7.0 (5.0 - 8.0) 03/02/20 17:58 Ur Specific [place] 1.015 (1.000-1.030) 03/02/20 17:58 Urine Protein 4+ (NEGATIVE) 03/02/20 17:58 Urine Glucose (UA) Negative (NEGATIVE) 03/02/20 17:58 Urine Ketones Negative (NEGATIVE) 03/02/20 17:58 Urine Occult Blood Negative (NEGATIVE) 03/02/20 17:58 Urine Nitrite Negative (NEGATIVE) 03/02/20 17:58 Urine Bilirubin Negative (NEGATIVE) 03/02/20 17:58 Urine Urobilinogen Normal (NORMAL) 03/02/20 17:58 Ur Leukocyte Esterase 1+ (NEGATIVE) 03/02/20 17:58 Urine RBC 0-2 /HPF (0-3) 03/02/20 17:58 Urine WBC 3-5 /HPF (0-5) 03/02/20 17:58 Ur Squamous Epith Cells Few /HPF (NEGATIVE) 03/02/20 17:58 Ur Renal Epithelial Cell Few /HPF (NEGATIVE) 03/02/20 17:58 Amorphous Sediment Trace /HPF (NEGATIVE) 03/02/20 17:58 Urine Bacteria Trace /HPF (NEGATIVE) 03/02/20 17:58 Ur Culture Indicated? No/not indicated 03/02/20 17:58 Stool Description 15 g. liquid 03/06/20 21:53 Stl Occult Blood (IFOB) Positive (NEGATIVE) A 03/06/20 21:53 Tissue Pathology To follow 03/04/20 12:05 - Plan (1) Gastritis Status: Acute Qualifiers: Gastritis type: unspecified gastritis Chronicity: acute Gastritis bleeding: presence of bleeding unspecified Qualified Code(s): K29.00 - Acute gastritis without bleeding Plan: NORMAL SALINE AT 120ML/HR, ALBUMIN 25% IV DAILY, PEPCID 20MG IV DAILY, PROTONIX 40MG PO BID, GI COCKTAIL 15ML PO QID, DILAUDID 1MG IV Q4H PRN PAIN, HUMULIN R SLIDING SCALE, AND HOME MEDICATIONS WERE RESUMED (2) Anemia Status: Acute Qualifiers: Anemia type: iron deficiency Iron deficiency anemia type: chronic blood loss Qualified Code(s): D50.0 - Iron deficiency anemia secondary to blood loss (chronic) Plan: PROCRIT 5000UNITS SC X 1 DOSE, CONTINUE TO MONITOR (3) Renal failure (ARF), acute on chronic Status: Acute Qualifiers: Acute renal failure type: unspecified Chronic kidney disease stage: unspecified stage Qualified Code(s): N17.9 - Acute kidney failure, unspecified; N18.9 - Chronic kidney disease, unspecified Plan: IV FLUIDS, HOLD LASIX, CONTINUE TO MONITOR (4) Hypertension Status: Chronic 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
[2020-03-08] MEDS: NITRODUR PATCH 0.4 MG/HR TD SCH (17:17)
[2020-03-08] MEDS: BENTYL CAP 10 MG PO PRN ×2 (17:30→23:12)
[2020-03-08] MEDS: SNACK - Diabetic Appropriate PO SCH (20:11)
[2020-03-08] MEDS: COZAAR PO SCH (20:12)
[2020-03-08] MEDS: LIPITOR TAB 40 MG PO SCH (20:13)
[2020-03-08] MEDS: MIRALAX POWDER (1 DOSE 17 G) PO SCH (20:13)
[2020-03-08] MEDS: ZOFRAN INJ 4 MG VIAL IVP PRN (22:17)
[2020-03-09] MEDS: NS 1000 ML 1,000 ML IV SCH ×3 (03:04→19:44)
[2020-03-09] MEDS: APRESOLINE TAB 25 MG PO SCH ×3 (05:02→21:21)
[2020-03-09 06:08] LABS: ALBUMIN 2.8 g/dL (3.4-5.0); CALCIUM 8.8 mg/dL (8.5-10.1); CARBON DIOXIDE 25.9 mmol/L (21-32); COR CA(FOR HYPOALB) 9.8 mg/dL (8.5-10.1); CREATININE 2.47 mg/dL (0.55-1.02); TOTAL PROTEIN 5.4 g/dL (6.4-8.2)
[2020-03-09 06:15] LABS: BASOPHILS % (AUTO) 0.5 % (0.2-1.0); EOSINOPHILS # (AUTO) 0.2 x10^3/uL (0.0-0.2); EOSINOPHILS % (AUTO) 3.3 % (0.9-2.9); HEMATOCRIT 21.4 % (36.0-47.0); HEMOGLOBIN 7.4 g/dL (12.0-16.0); LYMPHOCYTES # (AUTO) 1.1 X10^3/uL (1.3-2.9); LYMPHOCYTES % (AUTO) 18.5 % (21.0-51.0); MEAN CORPUSCULAR HEMOGLOBIN 33.2 pg (27.0-34.0); MEAN CORPUSCULAR HGB CONC 34.6 g/dL (33.0-35.0); MEAN PLATELET VOLUME 8.9 fL (7.4-11.0); MONOCYTES # (AUTO) 0.7 x10^3/uL (0.3-0.8); MONOCYTES % (AUTO) 11.8 % (0.0-13.0); NEUTROPHILS % (AUTO) 65.9 % (42.0-75.0); PLATELET COUNT 170 X10^3/uL (150.0-450.0); RED BLOOD COUNT 2.23 X10^6/uL (3.5-5.4); RED CELL DISTRIBUTION WIDTH 13.8 % (11.6-16.5); WHITE BLOOD COUNT 6.1 X10^3/uL (3.6-10.0)
--- NOTE | 2020-03-09 06:41 | RAD ---
HISTORYDecreased O2 satsSTUDYCHEST, 1 [id number]/15/2020FINDINGSThe heart is enlarged. Pulmonary venous congestion is present. No definite interstitial or alveolar edema or alveolar infiltrates are identified. Haziness on the right the left lung basilar likely due to developing pleural effusions. These are new when compared to the prior examination. Bony thorax is unremarkable.IMPRESSIONCardiomegaly with pulmonary venous congestionInterval development of bilateral pleural effusions right likely greater than leftElectronically signed by: JOSEPHINE ASHFORD (March 09, 2020 06:40:14)
[2020-03-09 07:07] LABS: HYPOCHROMASIA SLIGHT; PLATELET MORPHOLOGY COMMENT NORMAL (NORMAL)
--- NOTE | 2020-03-09 08:00 | US ---
INDICATIONSPALPABLE MASS RT NECK patient states palpable mass right neck superior to the thyroid present for 3 weeksCOMPARISONNoneTECHNIQUEMultiple combs scale images of the thyroid were obtained.FINDINGS[The thyroid isthmus is normal in its appearance. The isthmus measures 4 mm in thickness.The right lobe of the thyroid measures 1.78 cm transverse by 4.78 cm in length by 2.69 cm AP. Multiple nodules are seen throughout the right lobe summer cystic summer mixed solid and cystic. The largest is a simple cyst 0.6 6 7 by 0.71 x 0.61 cm and this is a septated cyst consistent with a colloid cyst. The next largest nodule lying anteriorly in the mid right lobe of the thyroid measures 5.6 x 7 point 6 by 6.1 mm. This nodule is mixed solid and cystic 1 point hyperechoic 1 point wider than tall 0 points smooth 0 points and without calcifications 0 points for total score of 2 not suspicious FNA is not indicated.A 3rd nodule measures 5.4 x 4.1 by 7 mm is mixed solid and cystic 1 point hypoechoic 2 points wider than tall 0 points smooth 0 points and without calcifications for total of 3 points mildly suspicious but FNA is recommended greater than 2.5 cm follow-up if greater than 1.5 cm but this measures only 7 mm.The left lobe of the thyroid measures 4.5 cm in length by 1.8 cm AP x 1.8 cm transverse. Multiple nodules are seen in the left lobe a large colloid cyst measuring 7 by 6 by 6.9 mm and consistent with a colloid cyst. The next largest nodule medially anteriorly in the upper pole left lobe of the thyroid measures 6.8 x 7.8 by 6.8 cm this nodule appears spongiform 0 point and therefore benign. This is a TR 1 FNA is not indicated.Of 3rd nodule upper poles also spongiform therefore benign and FNA is not indicated.The nodule in the right neck superior to the thyroid gland measures 1 point 2 by 0.7 by 1.1 cm this nodule is mixed solid and cystic. This is not the typical appearance of a normal lymph node. Short axis diameter is 7.3 mm. This lies outside the thyroid gland. If the nodule increases inside recommend further evaluation with CT.IMPRESSIONMultiple nodules are seen in both lobes of the thyroid. They are either benign colloid cyst spongiform nodules which are benign or low suspicion. Three nodules are seen on the right 3 nodules in the left lobe. The isthmus is normal.Mixed solid and cystic nodule is seen in the right neck superior to the right lobe of the thyroid that does not have the appearance of a normal or even an abnormal lymph node.Electronically signed by: KVNG BURTON (March 09, 2020 07:58:24)
[2020-03-09] MEDS: PULMICORT NEB TX 0.5 MG NEB SCH ×3 (08:30→20:05)
[2020-03-09] MEDS: ALBUMIN HUMAN 25%- 100 ML 100 ML IV SCH (09:00)
[2020-03-09] MEDS: PEPCID 20 MG IV PREMIX* 20 MG/50 ML BAG IV SCH (09:02)
[2020-03-09] MEDS: PROTONIX INJ 40 MG VIAL IVP SCH ×2 (09:02→21:19)
[2020-03-09] MEDS: COLACE CAP 100 MG PO SCH ×2 (09:03→21:21)
[2020-03-09] MEDS: COREG TAB 25 MG PO SCH ×2 (09:03→21:21)
[2020-03-09] MEDS: FOLIC ACID TAB 1 MG PO SCH (09:03)
[2020-03-09] MEDS: PROCARDIA XL PO SCH (09:03)
[2020-03-09] MEDS: ELAVIL PO SCH (09:03)
[2020-03-09] MEDS: LEVSIN/MAALOX/LIDOC VISC PO SCH ×5 (09:04→21:19)
[2020-03-09] MEDS: ACTOS PO SCH (09:04)
[2020-03-09] MEDS ORDERED: NS 500 ML IV 500 ML IV ONE (10:11)
--- NOTE | 2020-03-09 13:25 | RAD ---
HISTORYAbdominal painSTUDYKUBCOMPARISONCT abdomen pelvis 03/04/2020FINDINGSGas can be throughout the colon with minimal dilatation. No significant small bowel gas is identified. Mild colonic ileus is possible. No abnormal masses or abnormal calcifications are identified. The regional skeleton is intact.IMPRESSIONNonobstructive bowel gas patternPossible mild colonic ileusElectronically signed by: JOSEPHINE ASHFORD (March 09, 2020 13:24:14)
[2020-03-09] MEDS: TYLENOL 325 MG TAB PO PRN (14:00)
[2020-03-09] MEDS ORDERED: NS 250 ML IV 250 ML IV ONE (14:03)
[2020-03-09] MEDS: BENTYL CAP 10 MG PO PRN (14:15)
[2020-03-09] MEDS: BENADRYL INJ 50 MG VIAL IVP PRN (14:17)
--- NOTE | 2020-03-09 15:53 | DR.PROGNOT ---
Hospital Progress Notes - Progress Note for Day of: Progress Note Date: 03/09/20 - Chief Complaint Chief Complaint: moderate SOB ..still c/o abdominal pain , more on the Rt side and RLQ with poor appetite . c/o nausea and bloating feeling . having small BM. could not tolerate bowel prep and was not clean for colonoscopy . - Past Medical Family Social History Past Med/Fam/Surg Hx: No changes since H&P Allergies: Allergies codeine Allergy (Intermediate, Verified 03/02/20 14:12) meperidine [From Demerol] Allergy (Verified 03/20/19 11:20) - Review Of Systems ROS: No change since H&P - Vital Signs Vital Signs: Temperature 97.8 F Pulse Rate [Right Brachial] 64 Pulse Rate [Left Brachial] 81 Pulse Rate 67 Respiratory Rate 20 Blood Pressure [Left Arm] 188/76 Blood Pressure [Right Arm] 150/67 Blood Pressure 154/65 O2 Sat by Pulse Oximetry 90 - Physical Exam Oriented: Normal Eyes: Normal Ear: Normal Nose: Normal Throat: Normal Respiratory: Diminished Cardiovascular: Normal GI:Auscultation: Decreased (moderate abdominal distention , tympanic abdomen . and Rt side tenderness . BS hypoactive ..) GI: Tenderness: Diffuse, Mild. negative: Rebound, Guarding Skin: Decreased Turgur Musculoskeletal: Normal Mood Description: Calm Affect: Normal Speech Pattern: Clear, Appropriate - Laboratory and Diagnostics Result Diagrams: 03/09/20 05:35 03/09/20 05:35 Labs: 03/04/20 04:05 Urine,Clean Catch Urine Culture - Final Laboratory WBC 6.1 X10^3/uL (3.6-10.0) 03/09/20 05:35 RBC 2.23 X10^6/uL (3.5-5.4) L 03/09/20 05:35 Hgb 7.4 g/dL (12.0-16.0) L 03/09/20 05:35 Hct 21.4 % (36.0-47.0) L 03/09/20 05:35 MCV 96.0 fL (80.0-100.0) 03/09/20 05:35 MCH 33.2 pg (27.0-34.0) 03/09/20 05:35 MCHC 34.6 g/dL (33.0-35.0) 03/09/20 05:35 RDW 13.8 % (11.6-16.5) 03/09/20 05:35 Plt Count 170 X10^3/uL (150.0-450.0) 03/09/20 05:35 Plt Count Comment Adequate (ADEQUATE) 03/09/20 05:35 MPV 8.9 fL (7.4-11.0) 03/09/20 05:35 Neut % (Auto) 65.9 % (42.0-75.0) 03/09/20 05:35 Lymph % (Auto) 18.5 % (21.0-51.0) L 03/09/20 05:35 [place] % (Auto) 11.8 % (0.0-13.0) 03/09/20 05:35 Eos % (Auto) 3.3 % (0.9-2.9) H 03/09/20 05:35 Baso % (Auto) 0.5 % (0.2-1.0) 03/09/20 05:35 Neut # (Auto) 4.0 x10^3/uL (2.2-4.8) 03/09/20 05:35 Lymph # (Auto) 1.1 X10^3/uL (1.3-2.9) L 03/09/20 05:35 [place] # (Auto) 0.7 x10^3/uL (0.3-0.8) 03/09/20 05:35 Eos # (Auto) 0.2 x10^3/uL (0.0-0.2) 03/09/20 05:35 Baso # (Auto) 0.0 X10^3/uL (0.0-0.1) 03/09/20 05:35 Absolute Nucleated RBC 0.0 /100WBC 03/09/20 05:35 Plt Morphology Comment Normal (NORMAL) 03/09/20 05:35 RBC Morphology Abnormal (NORMAL) A 03/09/20 05:35 Hypochromasia Slight A 03/09/20 05:35 Sodium 140 mmol/L (136-145) 03/09/20 05:35 Corrected Sodium 141 mmol/L (136-145) 03/09/20 05:35 Potassium 3.9 mmol/L (3.5-5.1) 03/09/20 05:35 Chloride 108 mmol/L (98-107) H 03/09/20 05:35 Carbon Dioxide 25.9 mmol/L (21-32) 03/09/20 05:35 BUN 20 mg/dL (7-18) H 03/09/20 05:35 Creatinine 2.47 mg/dL (0.55-1.02) H 03/09/20 05:35 Est GFR (MDRD) Af Amer 24 (>60) L 03/09/20 05:35 Est GFR (MDRD) Non-Af 20 (>60) L 03/09/20 05:35 Glucose 127 mg/dL (65-99) H 03/09/20 05:35 POC Glucose (mg/dL) 116 mg/dL (65-99) H 03/09/20 11:48 Calcium 8.8 mg/dL (8.5-10.1) 03/09/20 05:35 Corrected Calcium 9.8 mg/dL (8.5-10.1) 03/09/20 05:35 Iron 41 ug/dL (50-175) L 03/03/20 05:37 Transferrin 133 mg/dL (202-364) L 03/03/20 05:37 Ferritin 252 ng/mL (8-252) 03/03/20 05:37 Total Bilirubin 0.20 mg/dL (0.2-1.0) 03/09/20 05:35 AST 9 Units/L (15-37) L 03/09/20 05:35 ALT 10 Units/L (12-78) L 03/09/20 05:35 Alkaline Phosphatase 53 Units/L (46-116) 03/09/20 05:35 Creatine Kinase 73 Units/L (26-192) 03/02/20 21:58 CK-MB (CK-2) 1.1 ng/mL (0-4.0) 03/02/20 21:58 CK/CKMB % Calc 1.5 % (<4) 03/02/20 21:58 Troponin I 0.05 ng/mL (0-1.5) 03/02/20 21:58 Total Protein 5.4 g/dL (6.4-8.2) L 03/09/20 05:35 Albumin 2.8 g/dL (3.4-5.0) L 03/09/20 05:35 Globulin 2.6 g/dL (2.5-4.5) 03/09/20 05:35 Albumin/Globulin Ratio 1.1 Ratio (1.1-2.1) 03/09/20 05:35 Amylase 37 Units/L (25-115) 03/06/20 05:20 Lipase 75 Units/L (73-393) 03/06/20 05:20 Carcinoembryonic Ag 2.4 ng/mL (0.0-3.0) 03/06/20 05:20 Vitamin B12 291 pg/mL (193-986) 03/03/20 05:37 Folate 19.4 ng/mL (>8.6) 03/03/20 05:37 Specimen Type Clean catch urine 03/02/20 17:58 Urine Color Yellow (YELLOW) 03/02/20 17:58 Urine Appearance Clear (CLEAR) 03/02/20 17:58 Urine pH 7.0 (5.0 - 8.0) 03/02/20 17:58 Ur Specific [place] 1.015 (1.000-1.030) 03/02/20 17:58 Urine Protein 4+ (NEGATIVE) 03/02/20 17:58 Urine Glucose (UA) Negative (NEGATIVE) 03/02/20 17:58 Urine Ketones Negative (NEGATIVE) 03/02/20 17:58 Urine Occult Blood Negative (NEGATIVE) 03/02/20 17:58 Urine Nitrite Negative (NEGATIVE) 03/02/20 17:58 Urine Bilirubin Negative (NEGATIVE) 03/02/20 17:58 Urine Urobilinogen Normal (NORMAL) 03/02/20 17:58 Ur Leukocyte Esterase 1+ (NEGATIVE) 03/02/20 17:58 Urine RBC 0-2 /HPF (0-3) 03/02/20 17:58 Urine WBC 3-5 /HPF (0-5) 03/02/20 17:58 Ur Squamous Epith Cells Few /HPF (NEGATIVE) 03/02/20 17:58 Ur Renal Epithelial Cell Few /HPF (NEGATIVE) 03/02/20 17:58 Amorphous Sediment Trace /HPF (NEGATIVE) 03/02/20 17:58 Urine Bacteria Trace /HPF (NEGATIVE) 03/02/20 17:58 Ur Culture Indicated? No/not indicated 03/02/20 17:58 Stool Description 15 g. liquid 05/17/20 21:53 Stl Occult Blood (IFOB) Positive (NEGATIVE) A 03/06/20 21:53 Tissue Pathology To follow 03/04/20 12:05 Blood Type O POSITIVE 03/09/20 10:43 Antibody Screen Negative 03/09/20 10:43 Crossmatch See Detail 03/09/20 10:43 - Assessment and Plan 1: abdominal pain with moderate ileus. Gastritis. anemia and CKD. to give SSEnema . abdominal xray in am . - Problem Patient Problems: Patient Problems Renal failure (ARF), acute on chronic (Acute) N17.9, N18.9 CKD (chronic kidney disease) (Acute) N18.9 Anemia (Acute) D64.9 Gastritis (Acute) K29.70 Nausea & vomiting (Acute) R11.2 Hypertension (Chronic) I10
[2020-03-09] MEDS ORDERED: CITROMA PO ONE (16:54)
[2020-03-09] MEDS ORDERED: CITROMA ONE (17:17)
[2020-03-09] MEDS: NITRODUR PATCH 0.4 MG/HR TD SCH (17:49)
[2020-03-09 17:58] LABS: HEMATOCRIT 28.4 % (36.0-47.0); HEMOGLOBIN 9.8 g/dL (12.0-16.0)
[2020-03-09] MEDS: SNACK - Diabetic Appropriate PO SCH (21:21)
[2020-03-09] MEDS: LIPITOR TAB 40 MG PO SCH (21:22)
[2020-03-09] MEDS: COZAAR PO SCH (21:23)
[2020-03-09] MEDS: MIRALAX POWDER (1 DOSE 17 G) PO SCH (21:23)
[2020-03-10] MEDS: NS 1000 ML 1,000 ML IV SCH ×3 (04:00→19:04)
[2020-03-10] MEDS: APRESOLINE TAB 25 MG PO SCH ×3 (06:11→22:40)
[2020-03-10 06:28] LABS: BASOPHILS % (AUTO) 0.6 % (0.2-1.0); EOSINOPHILS # (AUTO) 0.2 x10^3/uL (0.0-0.2); EOSINOPHILS % (AUTO) 3.9 % (0.9-2.9); HEMOGLOBIN 9.3 g/dL (12.0-16.0); LYMPHOCYTES # (AUTO) 1.1 X10^3/uL (1.3-2.9); LYMPHOCYTES % (AUTO) 23.4 % (21.0-51.0); MEAN CORPUSCULAR HGB CONC 34.4 g/dL (33.0-35.0); MEAN CORPUSCULAR VOLUME 93.1 fL (80.0-100.0); MEAN PLATELET VOLUME 8.4 fL (7.4-11.0); MONOCYTES # (AUTO) 0.5 x10^3/uL (0.3-0.8); MONOCYTES % (AUTO) 10.1 % (0.0-13.0); NEUTROPHILS # (AUTO) 2.9 x10^3/uL (2.2-4.8); PLATELET COUNT 188 X10^3/uL (150.0-450.0); RED CELL DISTRIBUTION WIDTH 14.4 % (11.6-16.5); WHITE BLOOD COUNT 4.7 X10^3/uL (3.6-10.0)
[2020-03-10 06:45] LABS: ALANINE AMINOTRANSFERASE 10 Units/L (12-78); ALBUMIN 2.9 g/dL (3.4-5.0); ALKALINE PHOSPHATASE 52 Units/L (46-116); ASPARTATE AMINO TRANSFERASE 11 Units/L (15-37); BLOOD UREA NITROGEN 19 mg/dL (7-18); CARBON DIOXIDE 23.5 mmol/L (21-32); CHLORIDE 107 mmol/L (98-107); COR CA(FOR HYPOALB) 9.9 mg/dL (8.5-10.1); CREATININE 2.37 mg/dL (0.55-1.02); SODIUM 139 mmol/L (136-145); TOTAL PROTEIN 5.4 g/dL (6.4-8.2); eGFR NON BLACK RACES 21 (>60)
[2020-03-10] MEDS: PROTONIX INJ 40 MG VIAL IVP SCH ×2 (08:18→08:40)
[2020-03-10] MEDS: PEPCID 20 MG IV PREMIX* 20 MG/50 ML BAG IV SCH (08:36)
[2020-03-10] MEDS: ALBUMIN HUMAN 25%- 100 ML 100 ML IV SCH (08:37)
[2020-03-10] MEDS: COREG TAB 25 MG PO SCH ×2 (08:38→20:25)
[2020-03-10] MEDS: PROCARDIA XL PO SCH (08:38)
[2020-03-10] MEDS: FOLIC ACID TAB 1 MG PO SCH (08:39)
[2020-03-10] MEDS: COLACE CAP 100 MG PO SCH ×2 (08:39→20:25)
[2020-03-10] MEDS: ELAVIL PO SCH (08:40)
[2020-03-10] MEDS: ACTOS PO SCH (08:40)
[2020-03-10] MEDS: LEVSIN/MAALOX/LIDOC VISC PO SCH ×4 (08:45→20:25)
[2020-03-10] MEDS: PULMICORT NEB TX 0.5 MG NEB SCH ×2 (09:55→21:40)
--- NOTE | 2020-03-10 11:57 | PCM.PROG ---
Progress Note - Progress Note for Day of Date of Exam: 03/09/20 - Subjective Subjective: IS BEING TREATED FOR INTRACTABLE NAUSEA, VOMITING, ABDOMINAL PAIN, HTN, ANEMIA, AND ACUTE ON CHRONIC RENAL FAILURE. TODAY, SHE IS ALERT AND ORIENTED, SITTING UP IN CHAIR ON MORNING ROUNDS. SHE CONTINUES WITH COMPLAINTS OF UPPER ABDOMINAL PAIN AND WEAKNESS, BUT REPORTS SLIGHT IMPROVEMENT IN SYMPTOMS. SHE HAD AN EGD ON SATURDAY, WHICH REVEALED MODERATE GASTRITIS, SMALL HIATAL HERNIA, NO BLEEDING, NO ULCERS OR NEOPLASM. BIOPSIES WERE TAKEN. COLONOSCOPY WAS ATTEMPTED, BUT WAS UNSUCCESSFUL DUE TO POOR BOWEL PREP. ON EXAMINATION, HEART IS REGULAR IN RATE AND RHYTHM. BILATERAL LUNGS ARE NOTED WITH DIMINISHED LUNG SOUNDS THROUGHOUT. ABDOMEN IS ROUND, SOFT, AND NOTED WITH DIFFUSE TENDERNESS TO PALPATION. HER VITALS THIS MORNING ARE: 98.4-64-18-95%NC-150/67. LABS WERE OBTAINED. ABNORMAL LAB VALUES INCLUDE THE FOLLOWING: RBC 2.23, HGB 7.4, HCT 21.4, CHLORIDE 108, BUN 20, CREATININE 2.47, GLUCOSE 127, AST 9, ALT 10, TOTAL PROTEIN 5.4, ALBUMIN 2.8. STOOL POSITIVE FOR OCCULT BLOOD. SHE IS CURRENTLY RECEIVING NORMAL SALINE AT 120ML/HR, ALBUMIN 25% IV DAILY, PEPCID 20MG IV DAILY, PROTONIX 40MG PO BID, GI COCKTAIL 15ML PO QID, DILAUDID 1MG IV Q4H PRN PAIN, HUMULIN R SLIDING SCALE, AND HOME MEDICATIONS WERE RESUMED WITH THE EXCEPTION OF HER LASIX. XARELTO HAS BEEN HELD. TODAY, WE WILL TRANSFUSE ONE UNIT OF PRBC. OTHERWISE, WE PLAN TO FOLLOW UP WITH AM LABS AND CONTINUE TO MONITOR. - Past Medical Family Social History Past Med/Fam/Surg Hx: No changes since H&P Allergies: Allergies codeine Allergy (Intermediate, Verified 03/02/20 14:12) meperidine [From Demerol] Allergy (Verified 03/20/19 11:20) - Review of Systems ROS: No change since H&P - Vital Signs and I&O's Vital Signs: Temperature 98.5 F Pulse Rate [Right Brachial] 75 Pulse Rate [Left Brachial] 81 Pulse Rate 81 Respiratory Rate 20 Blood Pressure [Left Arm] 188/76 Blood Pressure [Right Arm] 176/74 Blood Pressure 154/65 O2 Sat by Pulse Oximetry 95 Intake and Output: Intake & Output 03/07/20 03/08/20 03/09/20 03/10/20 11:59 11:59 11:59 11:59 Intake Total 2970 / 2970 2280 / 2280 3060 / 3060 1550 / 1550 Output Total 800 / 800 525 / 525 850 / 850 1200 / 1200 Balance 2170 / 2170 1755 / 1755 2210 / 2210 350 / 350 - Physical Exam Oriented: Normal Eyes: Normal Ear: Normal Nose: Normal Throat: Normal Respiratory: Diminished Cardiovascular: Normal : Normal Auscultation: Bowel Sounds: Decreased (moderate abdominal distention , tympanic abdomen . and Rt side tenderness . BS hypoactive ..) Palpation: Normal Tenderness: Diffuse, Mild. negative: Rebound, Guarding Skin: Decreased Turgur Musculoskeletal: Normal Mood Description: Calm Affect: Normal Speech Pattern: Clear, Appropriate - Laboratory and Diagnostics Result Diagrams: 03/10/20 05:47 03/10/20 05:47 Labs: 03/04/20 04:05 Urine,Clean Catch Urine Culture - Final Laboratory WBC 4.7 X10^3/uL (3.6-10.0) 03/10/20 05:47 RBC 2.90 X10^6/uL (3.5-5.4) L 03/10/20 05:47 Hgb 9.3 g/dL (12.0-16.0) L 03/10/20 05:47 Hct 27.0 % (36.0-47.0) L 03/10/20 05:47 MCV 93.1 fL (80.0-100.0) 03/10/20 05:47 MCH 32.0 pg (27.0-34.0) 03/10/20 05:47 MCHC 34.4 g/dL (33.0-35.0) 03/10/20 05:47 RDW 14.4 % (11.6-16.5) 03/10/20 05:47 Plt Count 188 X10^3/uL (150.0-450.0) 03/10/20 05:47 Plt Count Comment Adequate (ADEQUATE) 03/09/20 05:35 MPV 8.4 fL (7.4-11.0) 03/10/20 05:47 Neut % (Auto) 62.0 % (42.0-75.0) 03/10/20 05:47 Lymph % (Auto) 23.4 % (21.0-51.0) 03/10/20 05:47 [place] % (Auto) 10.1 % (0.0-13.0) 03/10/20 05:47 Eos % (Auto) 3.9 % (0.9-2.9) H 03/10/20 05:47 Baso % (Auto) 0.6 % (0.2-1.0) 03/10/20 05:47 Neut # (Auto) 2.9 x10^3/uL (2.2-4.8) 03/10/20 05:47 Lymph # (Auto) 1.1 X10^3/uL (1.3-2.9) L 03/10/20 05:47 [place] # (Auto) 0.5 x10^3/uL (0.3-0.8) 03/10/20 05:47 Eos # (Auto) 0.2 x10^3/uL (0.0-0.2) 03/10/20 05:47 Baso # (Auto) 0.0 X10^3/uL (0.0-0.1) 03/10/20 05:47 Absolute Nucleated RBC 0.0 /100WBC 03/10/20 05:47 Plt Morphology Comment Normal (NORMAL) 03/09/20 05:35 RBC Morphology Abnormal (NORMAL) A 03/09/20 05:35 Hypochromasia Slight A 03/09/20 05:35 Sodium 139 mmol/L (136-145) 03/10/20 05:47 Corrected Sodium TNP 03/10/20 05:47 Potassium 3.6 mmol/L (3.5-5.1) 03/10/20 05:47 Chloride 107 mmol/L (98-107) 03/10/20 05:47 Carbon Dioxide 23.5 mmol/L (21-32) 03/10/20 05:47 BUN 19 mg/dL (7-18) H 03/10/20 05:47 Creatinine 2.37 mg/dL (0.55-1.02) H 03/10/20 05:47 Est GFR (MDRD) Af Amer 25 (>60) L 03/10/20 05:47 Est GFR (MDRD) Non-Af 21 (>60) L 03/10/20 05:47 Glucose 105 mg/dL (65-99) H 03/10/20 05:47 POC Glucose (mg/dL) 104 mg/dL (65-99) H 03/10/20 11:34 Calcium 9.0 mg/dL (8.5-10.1) 03/10/20 05:47 Corrected Calcium 9.9 mg/dL (8.5-10.1) 03/10/20 05:47 Iron 41 ug/dL (50-175) L 03/03/20 05:37 Transferrin 133 mg/dL (202-364) L 03/03/20 05:37 Ferritin 252 ng/mL (8-252) 03/03/20 05:37 Total Bilirubin 0.30 mg/dL (0.2-1.0) 03/10/20 05:47 AST 11 Units/L (15-37) L 03/10/20 05:47 ALT 10 Units/L (12-78) L 03/10/20 05:47 Alkaline Phosphatase 52 Units/L (46-116) 03/10/20 05:47 Creatine Kinase 73 Units/L (26-192) 03/02/20 21:58 CK-MB (CK-2) 1.1 ng/mL (0-4.0) 03/02/20 21:58 CK/CKMB % Calc 1.5 % (<4) 03/02/20 21:58 Troponin I 0.05 ng/mL (0-1.5) 03/02/20 21:58 Total Protein 5.4 g/dL (6.4-8.2) L 03/10/20 05:47 Albumin 2.9 g/dL (3.4-5.0) L 03/10/20 05:47 Globulin 2.5 g/dL (2.5-4.5) 03/10/20 05:47 Albumin/Globulin Ratio 1.2 Ratio (1.1-2.1) 03/10/20 05:47 Amylase 37 Units/L (25-115) 03/06/20 05:20 Lipase 75 Units/L (73-393) 03/06/20 05:20 Carcinoembryonic Ag 2.4 ng/mL (0.0-3.0) 03/06/20 05:20 Vitamin B12 291 pg/mL (193-986) 03/03/20 05:37 Folate 19.4 ng/mL (>8.6) 03/03/20 05:37 Specimen Type Clean catch urine 03/02/20 17:58 Urine Color Yellow (YELLOW) 03/02/20 17:58 Urine Appearance Clear (CLEAR) 03/02/20 17:58 Urine pH 7.0 (5.0 - 8.0) 03/02/20 17:58 Ur Specific [place] 1.015 (1.000-1.030) 03/02/20 17:58 Urine Protein 4+ (NEGATIVE) 03/02/20 17:58 Urine Glucose (UA) Negative (NEGATIVE) 03/02/20 17:58 Urine Ketones Negative (NEGATIVE) 03/02/20 17:58 Urine Occult Blood Negative (NEGATIVE) 03/02/20 17:58 Urine Nitrite Negative (NEGATIVE) 03/02/20 17:58 Urine Bilirubin Negative (NEGATIVE) 03/02/20 17:58 Urine Urobilinogen Normal (NORMAL) 03/02/20 17:58 Ur Leukocyte Esterase 1+ (NEGATIVE) 03/02/20 17:58 Urine RBC 0-2 /HPF (0-3) 03/02/20 17:58 Urine WBC 3-5 /HPF (0-5) 03/02/20 17:58 Ur Squamous Epith Cells Few /HPF (NEGATIVE) 03/02/20 17:58 Ur Renal Epithelial Cell Few /HPF (NEGATIVE) 03/02/20 17:58 Amorphous Sediment Trace /HPF (NEGATIVE) 03/02/20 17:58 Urine Bacteria Trace /HPF (NEGATIVE) 03/02/20 17:58 Ur Culture Indicated? No/not indicated 03/02/20 17:58 Stool Description 15 g. liquid 03/06/20 21:53 Stl Occult Blood (IFOB) Positive (NEGATIVE) A 03/06/20 21:53 Tissue Pathology To follow 03/04/20 12:05 Blood Type O POSITIVE 03/09/20 10:43 Antibody Screen Negative 03/09/20 10:43 Crossmatch See Detail 03/09/20 10:43 - Plan (1) Gastritis Status: Acute Qualifiers: Gastritis type: unspecified gastritis Chronicity: acute Gastritis bleeding: presence of bleeding unspecified Qualified Code(s): K29.00 - Acute gastritis without bleeding Plan: NORMAL SALINE AT 120ML/HR, ALBUMIN 25% IV DAILY, PEPCID 20MG IV DAILY, PROTONIX 40MG PO BID, GI COCKTAIL 15ML PO QID, DILAUDID 1MG IV Q4H PRN PAIN, HUMULIN R SLIDING SCALE, AND HOME MEDICATIONS WERE RESUMED (2) Anemia Status: Acute Qualifiers: Anemia type: iron deficiency Iron deficiency anemia type: chronic blood loss Qualified Code(s): D50.0 - Iron deficiency anemia secondary to blood loss (chronic) Plan: TRANSFUSE 1 UNIT PRBC, CONTINUE TO MONITOR (3) Renal failure (ARF), acute on chronic Status: Acute Qualifiers: Acute renal failure type: unspecified Chronic kidney disease stage: unspecified stage Qualified Code(s): N17.9 - Acute kidney failure, unspecified; N18.9 - Chronic kidney disease, unspecified Plan: IV FLUIDS, HOLD LASIX, CONTINUE TO MONITOR (4) Hypertension Status: Chronic Qualifiers: Hypertension type: secondary to endocrine disorders Qualified Code(s): I15.2 - Hypertension secondary to endocrine disorders Plan: CONTINUE HOME MEDICATIONS, CONTINUE TO MONITOR (5) Diabetes Status: Chronic Qualifiers: Diabetes mellitus type: type 2 Diabetes mellitus senior care insulin use: unspecified long chain quiller tender insulin use status Diabetes mellitus complication status: with hyperglycemia Qualified Code(s): E11.65 - Type 2 diabetes mellitus with hyperglycemia Plan: CONTINUE HOME MEDS, CONTINUE TO MONTIOR
--- NOTE | 2020-03-10 12:02 | PCM.PROG ---
Progress Note - Progress Note for Day of Date of Exam: 03/10/20 - Subjective Subjective: IS BEING TREATED FOR INTRACTABLE NAUSEA, VOMITING, ABDOMINAL PAIN, HTN, ANEMIA, AND ACUTE ON CHRONIC RENAL FAILURE. SHE RECEIVED ONE UNIT OF PRBC YESTERDAY. TODAY, SHE IS ALERT AND ORIENTED, SITTING UP IN CHAIR ON MORNING ROUNDS. SHE CONTINUES WITH COMPLAINTS OF UPPER ABDOMINAL PAIN AND WEAKNESS. SHE HAD AN EGD ON SATURDAY, WHICH REVEALED MODERATE GASTRITIS, SMALL HIATAL HERNIA, NO BLEEDING, NO ULCERS OR NEOPLASM. BIOPSIES WERE TAKEN. COLONOSCOPY WAS ATTEMPTED, BUT WAS UNSUCCESSFUL DUE TO POOR BOWEL PREP. ON EXAMINATION, HEART IS REGULAR IN RATE AND RHYTHM. BILATERAL LUNGS ARE NOTED WITH DIMINISHED LUNG SOUNDS THROUGHOUT. ABDOMEN IS ROUND, SOFT, AND NOTED WITH DIFFUSE TENDERNESS TO PALPATION. HER VITALS THIS MORNING ARE: 98.5-75-22-92%NC-176/74. LABS WERE OBTAINED. ABNORMAL LAB VALUES INCLUDE THE FOLLOWING: RBC 2.90, HGB 9.3, HCT 27.0, CHLORIDE 108, BUN 20, CREATININE 2.47, GLUCOSE 127, AST 9, ALT 10, TOTAL PROTEIN 5.4, ALBUMIN 2.8. STOOL POSITIVE FOR OCCULT BLOOD. SHE IS CURRENTLY RECEIVING NORMAL SALINE AT 120ML/HR, ALBUMIN 25% IV DAILY, PEPCID 20MG IV DAILY, PROTONIX 40MG PO BID, GI COCKTAIL 15ML PO QID, DILAUDID 1MG IV Q4H PRN PAIN, HUMULIN R SLIDING SCALE, AND HOME MEDICATIONS WERE RESUMED WITH THE EXCEPTION OF HER LASIX. XARELTO HAS BEEN HELD. TODAY, WE WILL DECREASE HER IVF TO 75ML/HR. WE WILL REPEAT AN ABDOMEN/PELVIS CT WITH ORAL CONTRAST IN THE MORNING. OTHERWISE, WE PLAN TO FOLLOW UP WITH AM LABS AND CONTINUE TO MONITOR. - Past Medical Family Social History Past Med/Fam/Surg Hx: No changes since H&P Allergies: Allergies codeine Allergy (Intermediate, Verified 03/02/20 14:12) meperidine [From Demerol] Allergy (Verified 03/20/19 11:20) - Review of Systems ROS: No change since H&P - Vital Signs and I&O's Vital Signs: Temperature 98.5 F Pulse Rate [Right Brachial] 75 Pulse Rate [Left Brachial] 81 Pulse Rate 81 Respiratory Rate 20 Blood Pressure [Left Arm] 188/76 Blood Pressure [Right Arm] 176/74 Blood Pressure 154/65 O2 Sat by Pulse Oximetry 95 Intake and Output: Intake & Output 03/08/20 03/09/20 03/10/20 03/11/20 11:59 11:59 11:59 11:59 Intake Total 2280 / 2280 3060 / 3060 1550 / 1550 Output Total 525 / 525 850 / 850 1200 / 1200 Balance 1755 / 1755 2210 / 2210 350 / 350 - Physical Exam Oriented: Normal Eyes: Normal Ear: Normal Nose: Normal Throat: Normal Respiratory: Diminished Cardiovascular: Normal : Normal Auscultation: Bowel Sounds: Decreased (moderate abdominal distention , tympanic abdomen . and Rt side tenderness . BS hypoactive ..) Palpation: Normal Tenderness: Diffuse, Mild. negative: Rebound, Guarding Skin: Decreased Turgur Musculoskeletal: Normal Mood Description: Calm Affect: Normal Speech Pattern: Clear, Appropriate - Laboratory and Diagnostics Result Diagrams: 03/10/20 05:47 03/10/20 05:47 Labs: 03/04/20 04:05 Urine,Clean Catch Urine Culture - Final Laboratory WBC 4.7 X10^3/uL (3.6-10.0) 03/10/20 05:47 RBC 2.90 X10^6/uL (3.5-5.4) L 03/10/20 05:47 Hgb 9.3 g/dL (12.0-16.0) L 03/10/20 05:47 Hct 27.0 % (36.0-47.0) L 03/10/20 05:47 MCV 93.1 fL (80.0-100.0) 03/10/20 05:47 MCH 32.0 pg (27.0-34.0) 03/10/20 05:47 MCHC 34.4 g/dL (33.0-35.0) 03/10/20 05:47 RDW 14.4 % (11.6-16.5) 03/10/20 05:47 Plt Count 188 X10^3/uL (150.0-450.0) 03/10/20 05:47 Plt Count Comment Adequate (ADEQUATE) 03/09/20 05:35 MPV 8.4 fL (7.4-11.0) 03/10/20 05:47 Neut % (Auto) 62.0 % (42.0-75.0) 03/10/20 05:47 Lymph % (Auto) 23.4 % (21.0-51.0) 03/10/20 05:47 [place] % (Auto) 10.1 % (0.0-13.0) 03/10/20 05:47 Eos % (Auto) 3.9 % (0.9-2.9) H 03/10/20 05:47 Baso % (Auto) 0.6 % (0.2-1.0) 03/10/20 05:47 Neut # (Auto) 2.9 x10^3/uL (2.2-4.8) 03/10/20 05:47 Lymph # (Auto) 1.1 X10^3/uL (1.3-2.9) L 03/10/20 05:47 [place] # (Auto) 0.5 x10^3/uL (0.3-0.8) 03/10/20 05:47 Eos # (Auto) 0.2 x10^3/uL (0.0-0.2) 03/10/20 05:47 Baso # (Auto) 0.0 X10^3/uL (0.0-0.1) 03/10/20 05:47 Absolute Nucleated RBC 0.0 /100WBC 03/10/20 05:47 Plt Morphology Comment Normal (NORMAL) 03/09/20 05:35 RBC Morphology Abnormal (NORMAL) A 03/09/20 05:35 Hypochromasia Slight A 03/09/20 05:35 Sodium 139 mmol/L (136-145) 03/10/20 05:47 Corrected Sodium TNP 03/10/20 05:47 Potassium 3.6 mmol/L (3.5-5.1) 03/10/20 05:47 Chloride 107 mmol/L (98-107) 03/10/20 05:47 Carbon Dioxide 23.5 mmol/L (21-32) 03/10/20 05:47 BUN 19 mg/dL (7-18) H 03/10/20 05:47 Creatinine 2.37 mg/dL (0.55-1.02) H 03/10/20 05:47 Est GFR (MDRD) Af Amer 25 (>60) L 03/10/20 05:47 Est GFR (MDRD) Non-Af 21 (>60) L 03/10/20 05:47 Glucose 105 mg/dL (65-99) H 03/10/20 05:47 POC Glucose (mg/dL) 104 mg/dL (65-99) H 03/10/20 11:34 Calcium 9.0 mg/dL (8.5-10.1) 03/10/20 05:47 Corrected Calcium 9.9 mg/dL (8.5-10.1) 03/10/20 05:47 Iron 41 ug/dL (50-175) L 03/03/20 05:37 Transferrin 133 mg/dL (202-364) L 03/03/20 05:37 Ferritin 252 ng/mL (8-252) 03/03/20 05:37 Total Bilirubin 0.30 mg/dL (0.2-1.0) 03/10/20 05:47 AST 11 Units/L (15-37) L 03/10/20 05:47 ALT 10 Units/L (12-78) L 03/10/20 05:47 Alkaline Phosphatase 52 Units/L (46-116) 03/10/20 05:47 Creatine Kinase 73 Units/L (26-192) 03/02/20 21:58 CK-MB (CK-2) 1.1 ng/mL (0-4.0) 03/02/20 21:58 CK/CKMB % Calc 1.5 % (<4) 03/02/20 21:58 Troponin I 0.05 ng/mL (0-1.5) 03/02/20 21:58 Total Protein 5.4 g/dL (6.4-8.2) L 03/10/20 05:47 Albumin 2.9 g/dL (3.4-5.0) L 03/10/20 05:47 Globulin 2.5 g/dL (2.5-4.5) 03/10/20 05:47 Albumin/Globulin Ratio 1.2 Ratio (1.1-2.1) 03/10/20 05:47 Amylase 37 Units/L (25-115) 03/06/20 05:20 Lipase 75 Units/L (73-393) 03/06/20 05:20 Carcinoembryonic Ag 2.4 ng/mL (0.0-3.0) 03/06/20 05:20 Vitamin B12 291 pg/mL (193-986) 03/03/20 05:37 Folate 19.4 ng/mL (>8.6) 03/03/20 05:37 Specimen Type Clean catch urine 03/02/20 17:58 Urine Color Yellow (YELLOW) 03/02/20 17:58 Urine Appearance Clear (CLEAR) 03/02/20 17:58 Urine pH 7.0 (5.0 - 8.0) 03/02/20 17:58 Ur Specific [place] 1.015 (1.000-1.030) 03/02/20 17:58 Urine Protein 4+ (NEGATIVE) 03/02/20 17:58 Urine Glucose (UA) Negative (NEGATIVE) 03/02/20 17:58 Urine Ketones Negative (NEGATIVE) 03/02/20 17:58 Urine Occult Blood Negative (NEGATIVE) 03/02/20 17:58 Urine Nitrite Negative (NEGATIVE) 03/02/20 17:58 Urine Bilirubin Negative (NEGATIVE) 03/02/20 17:58 Urine Urobilinogen Normal (NORMAL) 03/02/20 17:58 Ur Leukocyte Esterase 1+ (NEGATIVE) 03/02/20 17:58 Urine RBC 0-2 /HPF (0-3) 03/02/20 17:58 Urine WBC 3-5 /HPF (0-5) 03/02/20 17:58 Ur Squamous Epith Cells Few /HPF (NEGATIVE) 03/02/20 17:58 Ur Renal Epithelial Cell Few /HPF (NEGATIVE) 03/02/20 17:58 Amorphous Sediment Trace /HPF (NEGATIVE) 03/02/20 17:58 Urine Bacteria Trace /HPF (NEGATIVE) 03/02/20 17:58 Ur Culture Indicated? No/not indicated 03/02/20 17:58 Stool Description 15 g. liquid 03/06/20 21:53 Stl Occult Blood (IFOB) Positive (NEGATIVE) A 03/06/20 21:53 Tissue Pathology To follow 03/04/20 12:05 Blood Type O POSITIVE 03/09/20 10:43 Antibody Screen Negative 03/09/20 10:43 Crossmatch See Detail 03/09/20 10:43 - Plan (1) Gastritis Status: Acute Qualifiers: Gastritis type: unspecified gastritis Chronicity: acute Gastritis bleeding: presence of bleeding unspecified Qualified Code(s): K29.00 - Acute gastritis without bleeding Plan: NORMAL SALINE AT 75ML/HR, ALBUMIN 25% IV DAILY, PEPCID 20MG IV DAILY, PROTONIX 40MG PO BID, GI COCKTAIL 15ML PO QID, DILAUDID 1MG IV Q4H PRN PAIN, HUMULIN R SLIDING SCALE, AND HOME MEDICATIONS WERE RESUMED (2) Anemia Status: Acute Qualifiers: Anemia type: iron deficiency Iron deficiency anemia type: chronic blood loss Qualified Code(s): D50.0 - Iron deficiency anemia secondary to blood loss (chronic) Plan: TRANSFUSE 1 UNIT PRBC, CONTINUE TO MONITOR (3) Renal failure (ARF), acute on chronic Status: Acute Qualifiers: Acute renal failure type: unspecified Chronic kidney disease stage: unspec ified stage Qualified Code(s): N17.9 - Acute kidney failure, unspecified; N18.9 - Chronic kidney disease, unspecified Plan: IV FLUIDS, HOLD LASIX, CONTINUE TO MONITOR (4) Hypertension Status: Chronic Qualifiers: Hypertension type: secondary to endocrine disorders Qualified Code(s): I15.2 - Hypertension secondary to endocrine disorders Plan: CONTINUE HOME MEDICATIONS, CONTINUE TO MONITOR (5) Diabetes Status: Chronic Qualifiers: Diabetes mellitus type: type 2 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
[2020-03-10] MEDS: SNACK - Diabetic Appropriate PO SCH (19:29)
[2020-03-10] MEDS: DILAUDID INJ IVP PRN (20:15)
[2020-03-10] MEDS: MIRALAX POWDER (1 DOSE 17 G) PO SCH (20:25)
[2020-03-10] MEDS: COZAAR PO SCH (20:25)
[2020-03-10] MEDS: LIPITOR TAB 40 MG PO SCH (20:25)
[2020-03-11] MEDS: NS 1000 ML 1,000 ML IV SCH ×2 (05:35→22:14)
[2020-03-11] MEDS: APRESOLINE TAB 25 MG PO SCH ×3 (05:35→22:19)
[2020-03-11 06:29] LABS: BASOPHILS % (AUTO) 0.6 % (0.2-1.0); EOSINOPHILS # (AUTO) 0.3 x10^3/uL (0.0-0.2); EOSINOPHILS % (AUTO) 3.7 % (0.9-2.9); HEMATOCRIT 27.8 % (36.0-47.0); HEMOGLOBIN 9.7 g/dL (12.0-16.0); LYMPHOCYTES # (AUTO) 1.2 X10^3/uL (1.3-2.9); LYMPHOCYTES % (AUTO) 17.1 % (21.0-51.0); MEAN CORPUSCULAR HEMOGLOBIN 32.7 pg (27.0-34.0); MEAN CORPUSCULAR HGB CONC 34.8 g/dL (33.0-35.0); MEAN CORPUSCULAR VOLUME 93.9 fL (80.0-100.0); MEAN PLATELET VOLUME 8.7 fL (7.4-11.0); MONOCYTES # (AUTO) 0.7 x10^3/uL (0.3-0.8); MONOCYTES % (AUTO) 9.9 % (0.0-13.0); NEUTROPHILS # (AUTO) 4.8 x10^3/uL (2.2-4.8); NEUTROPHILS % (AUTO) 68.7 % (42.0-75.0); PLATELET COUNT 222 X10^3/uL (150.0-450.0); RED BLOOD COUNT 2.96 X10^6/uL (3.5-5.4); RED CELL DISTRIBUTION WIDTH 14.2 % (11.6-16.5); WHITE BLOOD COUNT 6.9 X10^3/uL (3.6-10.0)
[2020-03-11 06:30] LABS: ALANINE AMINOTRANSFERASE 13 Units/L (12-78); ALBUMIN 3.2 g/dL (3.4-5.0); ALKALINE PHOSPHATASE 51 Units/L (46-116); ASPARTATE AMINO TRANSFERASE 13 Units/L (15-37); BLOOD UREA NITROGEN 19 mg/dL (7-18); CALCIUM 9.2 mg/dL (8.5-10.1); CARBON DIOXIDE 25.5 mmol/L (21-32); CHLORIDE 106 mmol/L (98-107); COR CA(FOR HYPOALB) 9.8 mg/dL (8.5-10.1); CREATININE 2.36 mg/dL (0.55-1.02); SODIUM 139 mmol/L (136-145); TOTAL PROTEIN 5.8 g/dL (6.4-8.2); eGFR NON BLACK RACES 21 (>60)
[2020-03-11] MEDS: ALBUMIN HUMAN 25%- 100 ML 100 ML IV SCH (08:55)
--- NOTE | 2020-03-11 08:58 | CT ---
ABDOMEN/PELVIS W/O CONHISTORY: ABD PAINComparison:March 04, 2020Technique:Multiple non contrast axial images of the abdomen and pelvis were obtained from the lung bases to the pubic symphysis. Oral contrast was given . Dose reduction techniques including Automated Exposure Control (AEC) and adjustment of mA and kV were utlized.Findings:The sensitivity for focal lesion detection within the solid abdominal viscera is diminished without the use of IV contrast.The heart is normal in size. There is no pericardial effusion. Large bilateral pleural effusions which have increased in size. Severe coronary calcification. Atelectasis of the lung bases.Liver and spleen are normal in size, contour. No focal lesions. No ductal dilitation. Gallbladder absent. The pancreas is unremarkable. Adrenal glands are normal. Small nonobstructing bilateral renal stones. Severe atherosclerotic calcification of the aorta with likely significant stenosis for example on series 3 image 36.No bowel obstruction or inflammation. Liquid stool can be seen throughout the colon. No abnormal appearing mesenteric or retroperitoneal lymph nodes. . No free fluid or fluid collections.The bladder is normal in appearance. Uterus appears to be absent no free fluid or abnormal pelvic lymph nodes.No aggressive osseous lesions.IMPRESSION:1. Liquid stool within the colon consistent with diarrheal illness.2. Worsening pleural effusions.3. Severe vascular disease which is poorly evaluated in the absence of intravenous contrast. See above.Electronically signed by: NELLIE GUAJARDO (March 11, 2020 08:59:54)
[2020-03-11] MEDS: PROCARDIA XL PO SCH (09:03)
[2020-03-11] MEDS: FOLIC ACID TAB 1 MG PO SCH (09:03)
[2020-03-11] MEDS: COREG TAB 25 MG PO SCH ×2 (09:04→21:03)
[2020-03-11] MEDS: COLACE CAP 100 MG PO SCH ×2 (09:04→21:03)
[2020-03-11] MEDS: ACTOS PO SCH (09:05)
[2020-03-11] MEDS: ELAVIL PO SCH (09:05)
[2020-03-11] MEDS: LEVSIN/MAALOX/LIDOC VISC PO SCH ×4 (09:06→21:03)
[2020-03-11] MEDS: PROTONIX INJ 40 MG VIAL IVP SCH ×2 (09:07→21:05)
[2020-03-11] MEDS: NITRODUR PATCH 0.4 MG/HR TD SCH (09:07)
[2020-03-11] MEDS: PEPCID 20 MG IV PREMIX* 20 MG/50 ML BAG IV SCH (09:07)
[2020-03-11] MEDS: PULMICORT NEB TX 0.5 MG NEB SCH ×2 (09:10→21:20)
[2020-03-11] MEDS: LASIX IVP SCH ×2 (11:37→17:11)
[2020-03-11] MEDS ORDERED: K-RIDER 10 MEQ/NS 100 ML 10 MEQ/100 ML BAG IV PRN (11:51)
[2020-03-11] MEDS ORDERED: POTASSIUM CHL 40 MEQ/NS 0.45% 500 ML IV PRN (11:51)
[2020-03-11] MEDS ORDERED: K-DUR TAB 20 MEQ PO PRN (11:51)
[2020-03-11] MEDS ORDERED: POTASSIUM CHL 60 MEQ/NS 0.45% 500 ML IV PRN (11:51)
[2020-03-11] MEDS ORDERED: MICRO K EXTEN CAP 10 MEQ PO PRN (11:51)
[2020-03-11] MEDS ORDERED: POTASSIUM CHLORIDE LIQ 20 MEQ UDC PO PRN (11:51)
[2020-03-11] MEDS ORDERED: KLOR-CON PO PRN (11:51)
[2020-03-11] MEDS: DILAUDID INJ IVP PRN (21:00)
[2020-03-11] MEDS: COZAAR PO SCH (21:03)
[2020-03-11] MEDS: LIPITOR TAB 40 MG PO SCH (21:05)
[2020-03-11] MEDS: SNACK - Diabetic Appropriate PO SCH (22:15)
[2020-03-11] MEDS: MIRALAX POWDER (1 DOSE 17 G) PO SCH (22:18)
[2020-03-12] MEDS: NS 1000 ML 1,000 ML IV SCH ×2 (03:13→06:59)
--- NOTE | 2020-03-12 05:35 | RAD ---
HISTORYSOB COPDSTUDYAP [id number]/2020FINDINGSHeart size remains upper normal. There is increasing diffuse confluent density projected over both lower lungs consistent with airspace disease and/or pleural fluid. The upper lungs remain relatively clear. No pneumothorax is seen.IMPRESSIONPersistent findings in the lung bases and pleural spaces consistent with infiltrates and pleural effusions. Suggestion of slight interval progression in this process since 03/09/2020.Electronically signed by: ELANA KRAMER (March 12, 2020 05:34:27)
[2020-03-12] MEDS: APRESOLINE TAB 25 MG PO SCH ×3 (06:02→22:03)
[2020-03-12 06:04] LABS: BASOPHILS % (AUTO) 0.5 % (0.2-1.0); EOSINOPHILS # (AUTO) 0.2 x10^3/uL (0.0-0.2); EOSINOPHILS % (AUTO) 4.2 % (0.9-2.9); HEMATOCRIT 25.2 % (36.0-47.0); HEMOGLOBIN 8.7 g/dL (12.0-16.0); LYMPHOCYTES # (AUTO) 1.2 X10^3/uL (1.3-2.9); LYMPHOCYTES % (AUTO) 20.5 % (21.0-51.0); MEAN CORPUSCULAR HEMOGLOBIN 32.3 pg (27.0-34.0); MEAN CORPUSCULAR HGB CONC 34.6 g/dL (33.0-35.0); MEAN CORPUSCULAR VOLUME 93.4 fL (80.0-100.0); MEAN PLATELET VOLUME 8.4 fL (7.4-11.0); MONOCYTES # (AUTO) 0.6 x10^3/uL (0.3-0.8); MONOCYTES % (AUTO) 10.6 % (0.0-13.0); NEUTROPHILS # (AUTO) 3.7 x10^3/uL (2.2-4.8); NEUTROPHILS % (AUTO) 64.2 % (42.0-75.0); PLATELET COUNT 223 X10^3/uL (150.0-450.0); WHITE BLOOD COUNT 5.8 X10^3/uL (3.6-10.0)
[2020-03-12 06:23] LABS: ALANINE AMINOTRANSFERASE 11 Units/L (12-78); ALBUMIN 2.8 g/dL (3.4-5.0); ALKALINE PHOSPHATASE 46 Units/L (46-116); ASPARTATE AMINO TRANSFERASE 11 Units/L (15-37); BLOOD UREA NITROGEN 18 mg/dL (7-18); CALCIUM 8.8 mg/dL (8.5-10.1); CHLORIDE 106 mmol/L (98-107); COR CA(FOR HYPOALB) 9.8 mg/dL (8.5-10.1); CREATININE 2.27 mg/dL (0.55-1.02); SODIUM 137 mmol/L (136-145); eGFR NON BLACK RACES 22 (>60)
[2020-03-12] MEDS: ALBUMIN HUMAN 25%- 100 ML 100 ML IV SCH (08:38)
[2020-03-12] MEDS: NITRODUR PATCH 0.4 MG/HR TD SCH (09:07)
[2020-03-12] MEDS: PEPCID 20 MG IV PREMIX* 20 MG/50 ML BAG IV SCH (09:09)
[2020-03-12] MEDS: COREG TAB 25 MG PO SCH ×2 (09:09→22:01)
[2020-03-12] MEDS: PROCARDIA XL PO SCH (09:09)
[2020-03-12] MEDS: LASIX IVP SCH ×2 (09:10→17:00)
[2020-03-12] MEDS: PROTONIX INJ 40 MG VIAL IVP SCH ×2 (09:10→22:03)
[2020-03-12] MEDS: COLACE CAP 100 MG PO SCH ×2 (09:10→22:01)
[2020-03-12] MEDS: FOLIC ACID TAB 1 MG PO SCH (09:11)
[2020-03-12] MEDS: ELAVIL PO SCH (09:11)
[2020-03-12] MEDS: ACTOS PO SCH (09:11)
[2020-03-12] MEDS: LEVSIN/MAALOX/LIDOC VISC PO SCH ×4 (09:12→22:02)
[2020-03-12] MEDS: PULMICORT NEB TX 0.5 MG NEB SCH ×2 (09:27→21:35)
[2020-03-12] MEDS: NS + KCL 20 MEQ/L 1,000 ML IV SCH (10:14)
--- NOTE | 2020-03-12 11:33 | PCM.PROG ---
Progress Note Progress Note for Day of Date of Exam: 03/12/20 Subjective Subjective: PT IS A 84 YO F BEING TREATED FOR INTRACTABLE NAUSEA, VOMITING, ABDOMINAL PAIN, HTN, ANEMIA, AND ACUTE ON CHRONIC RENAL FAILURE. SHE IS ALERT THIS MORNING, SITTING UP IN CHAIR, RECEIVING HER BREATHING TREATMENT. HOSPITAL COURSE INVOLVES EGD ON SATURDAY, WHICH REVEALED MODERATE GASTRITIS, SMALL HIATAL HERNIA, NO BLEEDING, NO ULCERS OR NEOPLASM AND COLONOSCOPY THAT WAS ATTEMPTED, BUT UNSUCCESSFUL DUE TO POOR BOWEL PREP. ON EXAM, HEART IS RRR. BILATERAL LUNGS DIMINISHED LUNG SOUNDS THROUGHOUT. ABDOMEN IS ROUND, SOFT, AND MILD DIFFUSE TENDERNESS TO PALPATION. LABS/IMAGING WBC 5.8, HGB 9.7>8.7, PLT 22, NA 137, K 3.4, CR 2.36>2.27, GLUC 106. 2.8. STOOL POSITIVE FOR OCCULT BLOOD. SHE IS RECEI VING IVF NS@75ML/H, ALBUMIN 25% IV DAILY, PEPCID 20MG IV DAILY, PROTONIX 40MG PO BID, GI COCKTAIL 15ML PO QID, DILAUDID 1MG IV Q4H PRN PAIN, HUMULIN R SLIDING SCALE, AND HOME MEDICATIONS ARE RESUMED.CXR:Persistent findings in the lung bases and pleural spaces consistent with infiltrates and pleural effusions. Suggestion of slight interval progression in this process since 03/09/2020. PT HAVING MILD HYPOKALEMIA, WILL ADD K TO FLUIDS AND DECREASE RATE. CONTINUE LASIX 40MG BID. XARELTO HELD, WHILE MONITORING TRENDING HGB. CONTINUE TO MONITOR AND FOLLOW UP LABS IN THE MORNING. Past Medical Family Social History Past Med/Fam/Surg Hx: No changes since H&P Allergies: Allergies codeine Allergy (Intermediate, Verified 03/02/20 14:12) meperidine [From Demerol] Allergy (Verified 03/20/19 11:20) Review of Systems ROS: No change since H&P Vital Signs and I&O's Vital Signs: Temperature 98.4 F Pulse Rate [Right Brachial] 71 Pulse Rate [Left Brachial] 81 Pulse Rate 64 Respiratory Rate 22 Blood Pressure [Left Arm] 186/74 Blood Pressure [Right Arm] 183/76 Blood Pressure 154/65 O2 Sat by Pulse Oximetry 94 Intake and Output: Intake & Output 03/09/20 03/10/20 03/11/20 03/12/20 23:59 23:59 23:59 23:59 Intake Total 2560 / 2560 1570 / 1570 9317 / 9317 700 / 700 Output Total 1350 / 1350 1175 / 1175 2400 / 2400 550 / 550 Balance 1210 / 1210 395 / 395 6917 / 6917 150 / 150 Physical Exam Oriented: Normal Eyes: Normal Ear: Normal Nose: Normal Throat: Normal Respiratory: Diminished Cardiovascular: Normal : Normal Auscultation: Bowel Sounds: Decreased (moderate abdominal distention , tympanic abdomen . and Rt side tenderness . BS hypoactive ..) Tenderness: Diffuse and Mild; negative Rebound and Guarding Skin: Decreased Turgur Musculoskeletal: Normal Mood Description: Calm Affect: Normal Speech Pattern: Clear and Appropriate Laboratory and Diagnostics Result Diagrams: 03/12/20 04:31 03/12/20 04:31 Labs: 03/04/20 04:05 Urine,Clean Catch Urine Culture - Final Laboratory WBC 5.8 X10^3/uL (3.6-10.0) 03/12/20 04:31 RBC 2.70 X10^6/uL (3.5-5.4) L 03/12/20 04:31 Hgb 8.7 g/dL (12.0-16.0) L 03/12/20 04:31 Hct 25.2 % (36.0-47.0) L 03/12/20 04:31 MCV 93.4 fL (80.0-100.0) 03/12/20 04:31 MCH 32.3 pg (27.0-34.0) 03/12/20 04:31 MCHC 34.6 g/dL (33.0-35.0) 03/12/20 04:31 RDW 14.0 % (11.6-16.5) 03/12/20 04:31 Plt Count 223 X10^3/uL (150.0-450.0) 03/12/20 04:31 Plt Count Comment Adequate (ADEQUATE) 03/09/20 05:35 MPV 8.4 fL (7.4-11.0) 03/12/20 04:31 Neut % (Auto) 64.2 % (42.0-75.0) 03/12/20 04:31 Lymph % (Auto) 20.5 % (21.0-51.0) L 03/12/20 04:31 [place] % (Auto) 10.6 % (0.0-13.0) 03/12/20 04:31 Eos % (Auto) 4.2 % (0.9-2.9) H 03/12/20 04:31 Baso % (Auto) 0.5 % (0.2-1.0) 03/12/20 04:31 Neut # (Auto) 3.7 x10^3/uL (2.2-4.8) 03/12/20 04:31 Lymph # (Auto) 1.2 X10^3/uL (1.3-2.9) L 03/12/20 04:31 [place] # (Auto) 0.6 x10^3/uL (0.3-0.8) 03/12/20 04:31 Eos # (Auto) 0.2 x10^3/uL (0.0-0.2) 03/12/20 04:31 Baso # (Auto) 0.0 X10^3/uL (0.0-0.1) 03/12/20 04:31 Absolute Nucleated RBC 0.0 /100WBC 03/12/20 04:31 Plt Morphology Comment Normal (NORMAL) 03/09/20 05:35 RBC Morphology Abnormal (NORMAL) A 03/09/20 05:35 Hypochromasia Slight A 03/09/20 05:35 Sodium 137 mmol/L (136-145) 03/12/20 04:31 Corrected Sodium TNP 03/12/20 04:31 Potassium 3.4 mmol/L (3.5-5.1) L 03/12/20 04:31 Chloride 106 mmol/L (98-107) 03/12/20 04:31 Carbon Dioxide 27.0 mmol/L (21-32) 03/12/20 04:31 BUN 18 mg/dL (7-18) 03/12/20 04:31 Creatinine 2.27 mg/dL (0.55-1.02) H 03/12/20 04:31 Est GFR (MDRD) Af Amer 26 (>60) L 03/12/20 04:31 Est GFR (MDRD) Non-Af 22 (>60) L 03/12/20 04:31 Glucose 106 mg/dL (65-99) H 03/12/20 04:31 POC Glucose (mg/dL) 115 mg/dL (65-99) H 03/12/20 05:41 Calcium 8.8 mg/dL (8.5-10.1) 03/12/20 04:31 Corrected Calcium 9.8 mg/dL (8.5-10.1) 03/12/20 04:31 Magnesium 2.4 mg/dL (1.7-2.9) 03/12/20 04:31 Iron 41 ug/dL (50-175) L 03/03/20 05:37 Transferrin 133 mg/dL (202-364) L 03/03/20 05:37 Ferritin 252 ng/mL (8-252) 03/03/20 05:37 Total Bilirubin 0.30 mg/dL (0.2-1.0) 03/12/20 04:31 AST 11 Units/L (15-37) L 03/12/20 04:31 ALT 11 Units/L (12-78) L 03/12/20 04:31 Alkaline Phosphatase 46 Units/L (46-116) 03/12/20 04:31 Creatine Kinase 73 Units/L (26-192) 03/02/20 21:58 CK-MB (CK-2) 1.1 ng/mL (0-4.0) 03/02/20 21:58 CK/CKMB % Calc 1.5 % (<4) 03/02/20 21:58 Troponin I 0.05 ng/mL (0-1.5) 03/02/20 21:58 Total Protein 5.0 g/dL (6.4-8.2) L 03/12/20 04:31 Albumin 2.8 g/dL (3.4-5.0) L 03/12/20 04:31 Globulin 2.2 g/dL (2.5-4.5) L 03/12/20 04:31 Albumin/Globulin Ratio 1.3 Ratio (1.1-2.1) 03/12/20 04:31 Amylase 37 Units/L (25-115) 03/06/20 05:20 Lipase 75 Units/L (73-393) 03/06/20 05:20 Carcinoembryonic Ag 2.4 ng/mL (0.0-3.0) 05/17/20 05:20 Vitamin B12 291 pg/mL (193-986) 03/03/20 05:37 Folate 19.4 ng/mL (>8.6) 03/03/20 05:37 Specimen Type Clean catch urine 03/02/20 17:58 Urine Color Yellow (YELLOW) 03/02/20 17:58 Urine Appearance Clear (CLEAR) 03/02/20 17:58 Urine pH 7.0 (5.0 - 8.0) 03/02/20 17:58 Ur Specific [place] 1.015 (1.000-1.030) 03/02/20 17:58 Urine Protein 4+ (NEGATIVE) 03/02/20 17:58 Urine Glucose (UA) Negative (NEGATIVE) 03/02/20 17:58 Urine Ketones Negative (NEGATIVE) 03/02/20 17:58 Urine Occult Blood Negative (NEGATIVE) 03/02/20 17:58 Urine Nitrite Negative (NEGATIVE) 03/02/20 17:58 Urine Bilirubin Negative (NEGATIVE) 03/02/20 17:58 Urine Urobilinogen Normal (NORMAL) 03/02/20 17:58 Ur Leukocyte Esterase 1+ (NEGATIVE) 03/02/20 17:58 Urine RBC 0-2 /HPF (0-3) 03/02/20 17:58 Urine WBC 3-5 /HPF (0-5) 03/02/20 17:58 Ur Squamous Epith Cells Few /HPF (NEGATIVE) 03/02/20 17:58 Ur Renal Epithelial Cell Few /HPF (NEGATIVE) 03/02/20 17:58 Amorphous Sediment Trace /HPF (NEGATIVE) 03/02/20 17:58 Urine Bacteria Trace /HPF (NEGATIVE) 03/02/20 17:58 Ur Culture Indicated? No/not indicated 03/02/20 17:58 Stool Description 15 g. liquid 03/06/20 21:53 Stl Occult Blood (IFOB) Positive (NEGATIVE) A 03/06/20 21:53 Tissue Pathology To follow 03/04/20 12:05 Blood Type O POSITIVE 03/09/20 10:43 Antibody Screen Negative 03/09/20 10:43 Crossmatch See Detail 03/09/20 10:43 Plan (1) Gastritis: Status: Acute Qualifiers: Chronicity: acute Gastritis bleeding: presence of bleeding unspecified Gastritis type: unspecified gastritis Qualified Code(s): K29.00 - Acute gastritis without bleeding Plan: NORMAL SALINE AT 50ML/HR, ALBUMIN 25% IV DAILY, PEPCID 20MG IV D AILY, PROTONIX 40MG PO BID, GI COCKTAIL 15ML PO QID, DILAUDID 1MG IV Q4H PRN PAIN, HUMULIN R SLIDING SCALE, AND HOME MEDICATIONS WERE RESUMED (2) Anemia: Status: Acute Qualifiers: Anemia type: iron deficiency Iron deficiency anemia type: chronic blood loss Qualified Code(s): D50.0 - Iron deficiency anemia secondary to blood loss (chronic) Plan: TRANSFUSED 1 UNIT PRBC, HGB 9.7>8.7 CONTINUE TO MONITOR (3) Renal failure (ARF), acute on chronic: Status: Acute Qualifiers: Acute renal failure type: unspecified Chronic kidney disease stage: unspecified stage Qualified Code(s): N17.9 - Acute kidney failure, unspecified; N18.9 - Chronic kidney disease, unspecified Plan: CREATININE 2.36>2.27 (4) Hypertension: Status: Chronic Qualifiers: Hypertension type: secondary to endocrine disorders Qualified Code(s): I15.2 - Hypertension secondary to endocrine disorders Plan: CONTINUE HOME MEDICATIONS, CONTINUE TO MONITOR (5) Diabetes: Status: Chronic Qualifiers: Diabetes mellitus complication status: with hyperglycemia Diabetes mellitus chcf insulin use: 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
[2020-03-12] MEDS: COZAAR PO SCH (22:01)
[2020-03-12] MEDS: MIRALAX POWDER (1 DOSE 17 G) PO SCH (22:02)
[2020-03-12] MEDS: LIPITOR TAB 40 MG PO SCH (22:02)
[2020-03-12] MEDS: DILAUDID INJ IVP PRN (22:13)
[2020-03-12] MEDS: SNACK - Diabetic Appropriate PO SCH (22:31)
[2020-03-13] MEDS: NS + KCL 20 MEQ/L 1,000 ML IV SCH ×2 (01:16→13:41)
[2020-03-13] MEDS ORDERED: VISTARIL PO ONE (03:50)
[2020-03-13] MEDS: VISTARIL PO PRN (04:00)
[2020-03-13] MEDS: APRESOLINE TAB 25 MG PO SCH ×3 (05:51→21:15)
[2020-03-13 06:10] LABS: BASOPHILS % (AUTO) 0.6 % (0.2-1.0); EOSINOPHILS # (AUTO) 0.2 x10^3/uL (0.0-0.2); EOSINOPHILS % (AUTO) 3.5 % (0.9-2.9); HEMATOCRIT 26.2 % (36.0-47.0); HEMOGLOBIN 9.2 g/dL (12.0-16.0); LYMPHOCYTES # (AUTO) 1.1 X10^3/uL (1.3-2.9); LYMPHOCYTES % (AUTO) 22.5 % (21.0-51.0); MEAN CORPUSCULAR HEMOGLOBIN 32.7 pg (27.0-34.0); MEAN CORPUSCULAR HGB CONC 35.1 g/dL (33.0-35.0); MEAN CORPUSCULAR VOLUME 93.2 fL (80.0-100.0); MEAN PLATELET VOLUME 8.4 fL (7.4-11.0); MONOCYTES # (AUTO) 0.7 x10^3/uL (0.3-0.8); MONOCYTES % (AUTO) 14.2 % (0.0-13.0); NEUTROPHILS % (AUTO) 59.2 % (42.0-75.0); PLATELET COUNT 249 X10^3/uL (150.0-450.0); RED BLOOD COUNT 2.81 X10^6/uL (3.5-5.4); RED CELL DISTRIBUTION WIDTH 14.2 % (11.6-16.5); WHITE BLOOD COUNT 5.1 X10^3/uL (3.6-10.0)
[2020-03-13 06:32] LABS: ALANINE AMINOTRANSFERASE 13 Units/L (12-78); ALBUMIN 3.2 g/dL (3.4-5.0); ALKALINE PHOSPHATASE 49 Units/L (46-116); ASPARTATE AMINO TRANSFERASE 8 Units/L (15-37); BLOOD UREA NITROGEN 19 mg/dL (7-18); CALCIUM 9.2 mg/dL (8.5-10.1); CHLORIDE 105 mmol/L (98-107); COR CA(FOR HYPOALB) 9.8 mg/dL (8.5-10.1); CREATININE 2.43 mg/dL (0.55-1.02); SODIUM 138 mmol/L (136-145); TOTAL PROTEIN 5.6 g/dL (6.4-8.2); eGFR NON BLACK RACES 20 (>60)
--- NOTE | 2020-03-13 06:44 | RAD ---
HISTORYSOBSTUDYCHEST, 1 VIEWCOMPARISONMay 2019TECHNIQUEPortable chest x-rayFINDINGSCardiac silhouette is borderline enlarged. Hazy bilateral pleural parenchymal opacities consisting of pleural effusions and probable atelectasis are observed. Increased density in the retrocardiac space of the left lower lobe may represent atelectasis or pneumonia depending on clinical presentation. The upper lung fuentes are predominantly clear. There is accentuation of the central pulmonary vasculature with cephalization of flow. A small amount of fluid is seen along the surface of the right minor fissure.IMPRESSIONStable bibasilar pleural parenchymal opacities consisting of small to moderate pleural effusions and atelectasis plus or minus left lower lobe pneumonia.Central vascular congestion and cephalization of flowElectronically signed by: LEONARDO CLEMENT (March 13, 2020 06:43:45)
[2020-03-13] MEDS: PULMICORT NEB TX 0.5 MG NEB SCH ×2 (08:32→21:15)
[2020-03-13] MEDS: COLACE CAP 100 MG PO SCH ×2 (08:53→20:46)
[2020-03-13] MEDS: PROCARDIA XL PO SCH (08:53)
[2020-03-13] MEDS: ELAVIL PO SCH (08:53)
[2020-03-13] MEDS: COREG TAB 25 MG PO SCH ×2 (08:54→20:46)
[2020-03-13] MEDS: FOLIC ACID TAB 1 MG PO SCH (08:54)
[2020-03-13] MEDS: LEVSIN/MAALOX/LIDOC VISC PO SCH ×4 (08:55→20:47)
[2020-03-13] MEDS: ALBUMIN HUMAN 25%- 100 ML 100 ML IV SCH (08:56)
[2020-03-13] MEDS: ACTOS PO SCH (08:56)
[2020-03-13] MEDS: LASIX IVP SCH ×2 (08:56→16:54)
[2020-03-13] MEDS: PROTONIX INJ 40 MG VIAL IVP SCH ×2 (08:57→20:47)
[2020-03-13] MEDS: NITRODUR PATCH 0.4 MG/HR TD SCH (08:57)
[2020-03-13] MEDS: PEPCID 20 MG IV PREMIX* 20 MG/50 ML BAG IV SCH (08:58)
--- NOTE | 2020-03-13 10:24 | PCM.PROG ---
Progress Note Progress Note for Day of Date of Exam: 03/13/20 Subjective Subjective: PT IS A 84 YO F BEING TREATED FOR INTRACTABLE NAUSEA, VOMITING, ABDOMINAL PAIN, HTN, ANEMIA, AND ACUTE ON CHRONIC RENAL FAILURE. SHE IS RESTING IN BED THIS MORNING. HOSPITAL COURSE INVOLVED EGD THAT SHOWED MODERATE GASTRITIS, SMALL HIATAL HERNIA, NO BLEEDING, NO ULCERS OR NEOPLASM AND COLON OSCOPY THAT WAS ATTEMPTED, BUT UNSUCCESSFUL DUE TO POOR BOWEL PREP. ON EXAM, HEART IS RRR. BILATERAL LUNGS DIMINISHED LUNG SOUNDS THROUGHOUT. ABDOMEN IS ROUND, SOFT, AND MILD DIFFUSE TENDERNESS TO PALPATION. LABS/IMAGING WBC 5.1, HGB 9.2, PLT 249, NA 138, K 3.6, CR 2.43, GLUC 90. STOOL POSITIVE FOR OCCULT BLOOD. SHE IS RECEIVING IVF NS@50ML/H, ALBUMIN 25% IV DAILY, PEPCID 20MG IV DAILY, PROTONIX 40MG PO BID, GI COCKTAIL 15ML PO QID, DILAUDID 1MG IV Q4H PRN PAIN, HUMULIN R SLIDING SCALE, AND HOME MEDICATIONS ARE RESUMED. CXR: Stable bibasilar pleural parenchymal opacities consisting of small to moderate pleural effusions and atelectasis plus or minus left lower lobe pneumonia. Central vascular congestion and cephalization of flow. CONTINUE LASIX 40MG BID. XARELTO HELD, WHILE MONITORING TRENDING HGB. CONTINUE TO MONITOR AND FOLLOW UP LABS IN THE MORNING. Past Medical Family Social History Past Med/Fam/Surg Hx: No changes since H&P Allergies: Allergies codeine Allergy (Intermediate, Verified 03/02/20 14:12) meperidine [From Demerol] Allergy (Verified 03/20/19 11:20) Review of Systems ROS: No change since H&P Vital Signs and I&O's Vital Signs: Temperature 98.2 F Pulse Rate [Right Brachial] 67 Pulse Rate [Left Brachial] 73 Pulse Rate 68 Respiratory Rate 20 Blood Pressure [Left Arm] 176/75 Blood Pressure [Right Arm] 157/70 Blood Pressure 154/65 O2 Sat by Pulse Oximetry 96 Intake and Output: Intake & Output 03/10/20 03/11/20 03/12/20 03/13/20 23:59 23:59 23:59 23:59 Intake Total 1570 / 1570 9317 / 9317 2870 / 2870 600 / 600 Output Total 1175 / 1175 2400 / 2400 3150 / 3150 700 / 700 Balance 395 / 395 6917 / 6917 -280 / -280 -100 / -100 Physical Exam Oriented: Normal Eyes: Normal Ear: Normal Nose: Normal Throat: Normal Respiratory: Diminished Cardiovascular: Normal : Normal Auscultation: Bowel Sounds: Decreased (moderate abdominal distention , tympanic abdomen . and Rt side tenderness . BS hypoactive ..) Tenderness: Diffuse and Mild; negative Rebound and Guarding Skin: Decreased Turgur Musculoskeletal: Normal Mood Description: Calm Affect: Normal Speech Pattern: Clear and Appropriate Laboratory and Diagnostics Result Diagrams: 03/13/20 04:21 03/13/20 04:21 Labs: 03/04/20 04:05 Urine,Clean Catch Urine Culture - Final Laboratory WBC 5.1 X10^3/uL (3.6-10.0) 03/13/20 04:21 RBC 2.81 X10^6/uL (3.5-5.4) L 03/13/20 04:21 Hgb 9.2 g/dL (12.0-16.0) L 03/13/20 04:21 Hct 26.2 % (36.0-47.0) L 03/13/20 04:21 MCV 93.2 fL (80.0-100.0) 03/13/20 04:21 MCH 32.7 pg (27.0-34.0) 03/13/20 04:21 MCHC 35.1 g/dL (33.0-35.0) H 03/13/20 04:21 RDW 14.2 % (11.6-16.5) 03/13/20 04:21 Plt Count 249 X10^3/uL (150.0-450.0) 03/13/20 04:21 Plt Count Comment Adequate (ADEQUATE) 03/09/20 05:35 MPV 8.4 fL (7.4-11.0) 03/13/20 04:21 Neut % (Auto) 59.2 % (42.0-75.0) 03/13/20 04:21 Lymph % (Auto) 22.5 % (21.0-51.0) 03/13/20 04:21 [place] % (Auto) 14.2 % (0.0-13.0) H 03/13/20 04:21 Eos % (Auto) 3.5 % (0.9-2.9) H 03/13/20 04:21 Baso % (Auto) 0.6 % (0.2-1.0) 03/13/20 04:21 Neut # (Auto) 3.0 x10^3/uL (2.2-4.8) 03/13/20 04:21 Lymph # (Auto) 1.1 X10^3/uL (1.3-2.9) L 03/13/20 04:21 [place] # (Auto) 0.7 x10^3/uL (0.3-0.8) 03/13/20 04:21 Eos # (Auto) 0.2 x10^3/uL (0.0-0.2) 03/13/20 04:21 Baso # (Auto) 0.0 X10^3/uL (0.0-0.1) 03/13/20 04:21 Absolute Nucleated RBC 0.0 /100WBC 03/13/20 04:21 Plt Morphology Comment Normal (NORMAL) 03/09/20 05:35 RBC Morphology Abnormal (NORMAL) A 03/09/20 05:35 Hypochromasia Slight A 03/09/20 05:35 Sodium 138 mmol/L (136-145) 03/13/20 04:21 Corrected Sodium TNP 03/13/20 04:21 Potassium 3.6 mmol/L (3.5-5.1) 03/13/20 04:21 Chloride 105 mmol/L (98-107) 03/13/20 04:21 Carbon Dioxide 28.0 mmol/L (21-32) 03/13/20 04:21 BUN 19 mg/dL (7-18) H 03/13/20 04:21 Creatinine 2.43 mg/dL (0.55-1.02) H 03/13/20 04:21 Est GFR (MDRD) Af Amer 24 (>60) L 03/13/20 04:21 Est GFR (MDRD) Non-Af 20 (>60) L 03/13/20 04:21 Glucose 90 mg/dL (65-99) 03/13/20 04:21 POC Glucose (mg/dL) 99 mg/dL (65-99) 03/13/20 05:29 Calcium 9.2 mg/dL (8.5-10.1) 03/13/20 04:21 Corrected Calcium 9.8 mg/dL (8.5-10.1) 03/13/20 04:21 Magnesium 2.4 mg/dL (1.7-2.9) 03/12/20 04:31 Iron 41 ug/dL (50-175) L 03/03/20 05:37 Transferrin 133 mg/dL (202-364) L 03/03/20 05:37 Ferritin 252 ng/mL (8-252) 03/03/20 05:37 Total Bilirubin 0.30 mg/dL (0.2-1.0) 03/13/20 04:21 AST 8 Units/L (15-37) L 03/13/20 04:21 ALT 13 Units/L (12-78) 03/13/20 04:21 Alkaline Phosphatase 49 Units/L (46-116) 03/13/20 04:21 Creatine Kinase 73 Units/L (26-192) 03/02/20 21:58 CK-MB (CK-2) 1.1 ng/mL (0-4.0) 03/02/20 21:58 CK/CKMB % Calc 1.5 % (<4) 03/02/20 21:58 Troponin I 0.05 ng/mL (0-1.5) 03/02/20 21:58 Total Protein 5.6 g/dL (6.4-8.2) L 03/13/20 04:21 Albumin 3.2 g/dL (3.4-5.0) L 03/13/20 04:21 Globulin 2.4 g/dL (2.5-4.5) L 03/13/20 04:21 Albumin/Globulin Ratio 1.3 Ratio (1.1-2.1) 03/13/20 04:21 Amylase 37 Units/L (25-115) 03/06/20 05:20 Lipase 75 Units/L (73-393) 03/06/20 05:20 Carcinoembryonic Ag 2.4 ng/mL (0.0-3.0) 03/06/20 05:20 Vitamin B12 291 pg/mL (193-986) 03/03/20 05:37 Folate 19.4 ng/mL (>8.6) 03/03/20 05:37 Specimen Type Clean catch urine 03/02/20 17:58 Urine Color Yellow (YELLOW) 03/02/20 17:58 Urine Appearance Clear (CLEAR) 03/02/20 17:58 Urine pH 7.0 (5.0 - 8.0) 03/02/20 17:58 Ur Specific [place] 1.015 (1.000-1.030) 03/02/20 17:58 Urine Protein 4+ (NEGATIVE) 03/02/20 17:58 Urine Glucose (UA) Negative (NEGATIVE) 03/02/20 17:58 Urine Ketones Negative (NEGATIVE) 03/02/20 17:58 Urine Occult Blood Negative (NEGATIVE) 03/02/20 17:58 Urine Nitrite Negative (NEGATIVE) 03/02/20 17:58 Urine Bilirubin Negative (NEGATIVE) 03/02/20 17:58 Urine Urobilinogen Normal (NORMAL) 03/02/20 17:58 Ur Leukocyte Esterase 1+ (NEGATIVE) 03/02/20 17:58 Urine RBC 0-2 /HPF (0-3) 03/02/20 17:58 Urine WBC 3-5 /HPF (0-5) 03/02/20 17:58 Ur Squamous Epith Cells Few /HPF (NEGATIVE) 03/02/20 17:58 Ur Renal Epithelial Cell Few /HPF (NEGATIVE) 03/02/20 17:58 Amorphous Sediment Trace /HPF (NEGATIVE) 03/02/20 17:58 Urine Bacteria Trace /HPF (NEGATIVE) 03/02/20 17:58 Ur Culture Indicated? No/not indicated 03/02/20 17:58 Stool Description 15 g. liquid 03/06/20 21:53 Stl Occult Blood (IFOB) Positive (NEGATIVE) A 03/06/20 21:53 Tissue Pathology To follow 03/04/20 12:05 Blood Type O POSITIVE 03/09/20 10:43 Antibody Screen Negative 03/09/20 10:43 Crossmatch See Detail 03/09/20 10:43 Plan (1) Gastritis: Status: Acute Qualifiers: Chronicity: acute Gastritis bleeding: presence of bleeding unspecified Gastritis type: unspecified gastritis Qualified Code(s): K29.00 - Acute gastritis without bleeding Plan: NORMAL SALINE AT 50ML/HR, ALBUMIN 25% IV DAILY, PEPCID 20MG IV DAILY, PROTONIX 40MG PO BID, GI COCKTAIL 15ML PO QID, DILAUDID 1MG IV Q4H PRN PAIN, HUMULIN R SLIDING SCALE, AND HOME MEDICATIONS WERE RESUMED (2) Anemia: Status: Acute Qualifiers: Anemia type: iron deficiency Iron deficiency anemia type: chronic blood loss Qualified Code(s): D50.0 - Iron deficiency anemia secondary to blood loss (chronic) Plan: TRANSFUSED 1 UNIT PRBC, HGB 9.7>8.7 CONTINUE TO MONITOR (3) Renal failure (ARF), acute on chronic: Status: Acute Qualifiers: Acute renal failure type: unspecified Chronic kidney disease stage: unspecified stage Qualified Code(s): N17.9 - Acute kidney failure, unspecified; N18.9 - Chronic kidney disease, unspecified Plan: CREATININE 2.36>2.27 (4) Hypertension: Status: Chronic Qualifiers: Hypertension type: secondary to endocrine disorders Qualified Code(s): I15.2 - Hypertension secondary to endocrine disorders Plan: CONTINUE HOME MEDICATIONS, CONTINUE TO MONITOR (5) Diabetes: Status: Chronic Qualifiers: Diabetes mellitus complication status: with hyperglycemia 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
[2020-03-13] MEDS: SNACK - Diabetic Appropriate PO SCH (20:04)
[2020-03-13] MEDS: COZAAR PO SCH (20:46)
[2020-03-13] MEDS: MIRALAX POWDER (1 DOSE 17 G) PO SCH (20:47)
[2020-03-13] MEDS: LIPITOR TAB 40 MG PO SCH (20:47)
[2020-03-13] MEDS: BENTYL CAP 10 MG PO PRN (20:48)
[2020-03-14] MEDS: BENTYL CAP 10 MG PO PRN (04:25)
[2020-03-14] MEDS: NS + KCL 20 MEQ/L 1,000 ML IV SCH ×2 (04:25→14:01)
[2020-03-14 05:23] LABS: BASOPHILS % (AUTO) 0.4 % (0.2-1.0); EOSINOPHILS # (AUTO) 0.2 x10^3/uL (0.0-0.2); EOSINOPHILS % (AUTO) 4.3 % (0.9-2.9); HEMATOCRIT 23.7 % (36.0-47.0); HEMOGLOBIN 8.4 g/dL (12.0-16.0); LYMPHOCYTES # (AUTO) 1.1 X10^3/uL (1.3-2.9); LYMPHOCYTES % (AUTO) 22.1 % (21.0-51.0); MEAN CORPUSCULAR HEMOGLOBIN 33.2 pg (27.0-34.0); MEAN CORPUSCULAR HGB CONC 35.4 g/dL (33.0-35.0); MEAN CORPUSCULAR VOLUME 93.8 fL (80.0-100.0); MEAN PLATELET VOLUME 8.5 fL (7.4-11.0); MONOCYTES # (AUTO) 0.7 x10^3/uL (0.3-0.8); MONOCYTES % (AUTO) 12.8 % (0.0-13.0); NEUTROPHILS # (AUTO) 3.1 x10^3/uL (2.2-4.8); NEUTROPHILS % (AUTO) 60.4 % (42.0-75.0); PLATELET COUNT 226 X10^3/uL (150.0-450.0); RED BLOOD COUNT 2.53 X10^6/uL (3.5-5.4); RED CELL DISTRIBUTION WIDTH 13.9 % (11.6-16.5); WHITE BLOOD COUNT 5.1 X10^3/uL (3.6-10.0)
[2020-03-14 05:37] LABS: ALBUMIN 3.1 g/dL (3.4-5.0); CALCIUM 9.2 mg/dL (8.5-10.1); CARBON DIOXIDE 28.8 mmol/L (21-32); COR CA(FOR HYPOALB) 9.9 mg/dL (8.5-10.1); CREATININE 2.49 mg/dL (0.55-1.02); TOTAL PROTEIN 5.4 g/dL (6.4-8.2)
[2020-03-14] MEDS: APRESOLINE TAB 25 MG PO SCH ×3 (06:00→21:04)
--- NOTE | 2020-03-14 07:41 | RAD ---
HISTORYShortness of breathSTUDYCHEST, 1 MDPMMAFJKJYNRI79/24/2020FINDINGSThe heart is mildly enlarged. The laney are normal. Haziness in the lower 2/3 of both lung fuentes likely represents pleural effusion and lower lobe parenchymal lung disease and is unchanged when compared with the prior examination. The upper lung fuentes are clear. Bony thorax is unremarkable.IMPRESSIONNo significant change from the prior examinationElectronically signed by: JOSEPHINE ASHFORD (March 14, 2020 07:39:39)
[2020-03-14] MEDS: PULMICORT NEB TX 0.5 MG NEB SCH ×2 (08:39→20:55)
[2020-03-14] MEDS: COLACE CAP 100 MG PO SCH ×2 (08:48→20:06)
[2020-03-14] MEDS: FOLIC ACID TAB 1 MG PO SCH (08:48)
[2020-03-14] MEDS: ACTOS PO SCH (08:49)
[2020-03-14] MEDS: PROTONIX INJ 40 MG VIAL IVP SCH ×2 (08:49→20:06)
[2020-03-14] MEDS: ELAVIL PO SCH (08:49)
[2020-03-14] MEDS: PROCARDIA XL PO SCH (08:49)
[2020-03-14] MEDS: COREG TAB 25 MG PO SCH ×2 (08:49→20:06)
[2020-03-14] MEDS: LEVSIN/MAALOX/LIDOC VISC PO SCH ×4 (08:50→20:07)
[2020-03-14] MEDS: LASIX IVP SCH ×2 (08:50→16:59)
[2020-03-14] MEDS: ALBUMIN HUMAN 25%- 100 ML 100 ML IV SCH (08:51)
[2020-03-14] MEDS: NITRODUR PATCH 0.4 MG/HR TD SCH (08:51)
[2020-03-14] MEDS: PEPCID 20 MG IV PREMIX* 20 MG/50 ML BAG IV SCH (08:53)
[2020-03-14] MEDS ORDERED: MINERAL OIL PO STA (09:04)
--- NOTE | 2020-03-14 09:31 | DR.PROGNOT ---
Hospital Progress Notes - Progress Note for Day of: Progress Note Date: 03/14/20 - Chief Complaint Chief Complaint: feeling better , had small BM with hard stool ..still c/o abdominal pain and bloating . - Past Medical Family Social History Past Med/Fam/Surg Hx: No changes since H&P Allergies: Allergies codeine Allergy (Intermediate, Verified 03/02/20 14:12) meperidine [From Demerol] Allergy (Verified 03/20/19 11:20) - Review Of Systems ROS: No change since H&P - Vital Signs Vital Signs: Temperature 98.1 F Pulse Rate [Right Brachial] 69 Pulse Rate [Left Brachial] 59 Pulse Rate 61 Respiratory Rate 20 Blood Pressure [Left Arm] 158/54 Blood Pressure [Right Arm] 157/70 Blood Pressure 154/65 O2 Sat by Pulse Oximetry 96 - Physical Exam Oriented: Normal Eyes: Normal Ear: Normal Nose: Normal Throat: Normal Respiratory: Diminished Cardiovascular: Normal : Normal GI:Auscultation: Decreased (moderate abdominal distention , tympanic abdomen . and Rt side tenderness . BS hypoactive ..) GI:Palpation: Other (moderate distended abdomen wit moderate tenderness ..) GI: Tenderness: Diffuse, Mild. negative: Rebound, Guarding Skin: Decreased Turgur Musculoskeletal: Normal Mood Description: Calm Affect: Normal Speech Pattern: Clear, Appropriate - Laboratory and Diagnostics Result Diagrams: 03/14/20 04:22 03/14/20 04:22 Labs: 03/04/20 04:05 Urine,Clean Catch Urine Culture - Final Laboratory WBC 5.1 X10^3/uL (3.6-10.0) 03/14/20 04:22 RBC 2.53 X10^6/uL (3.5-5.4) L 03/14/20 04:22 Hgb 8.4 g/dL (12.0-16.0) L 03/14/20 04:22 Hct 23.7 % (36.0-47.0) L 03/14/20 04:22 MCV 93.8 fL (80.0-100.0) 03/14/20 04:22 MCH 33.2 pg (27.0-34.0) 03/14/20 04:22 MCHC 35.4 g/dL (33.0-35.0) H 03/14/20 04:22 RDW 13.9 % (11.6-16.5) 03/14/20 04:22 Plt Count 226 X10^3/uL (150.0-450.0) 03/14/20 04:22 Plt Count Comment Adequate (ADEQUATE) 03/09/20 05:35 MPV 8.5 fL (7.4-11.0) 03/14/20 04:22 Neut % (Auto) 60.4 % (42.0-75.0) 03/14/20 04:22 Lymph % (Auto) 22.1 % (21.0-51.0) 03/14/20 04:22 [place] % (Auto) 12.8 % (0.0-13.0) 03/14/20 04:22 Eos % (Auto) 4.3 % (0.9-2.9) H 03/14/20 04:22 Baso % (Auto) 0.4 % (0.2-1.0) 03/14/20 04:22 Neut # (Auto) 3.1 x10^3/uL (2.2-4.8) 03/14/20 04:22 Lymph # (Auto) 1.1 X10^3/uL (1.3-2.9) L 03/14/20 04:22 [place] # (Auto) 0.7 x10^3/uL (0.3-0.8) 03/14/20 04:22 Eos # (Auto) 0.2 x10^3/uL (0.0-0.2) 03/14/20 04:22 Baso # (Auto) 0.0 X10^3/uL (0.0-0.1) 03/14/20 04:22 Absolute Nucleated RBC 0.0 /100WBC 03/14/20 04:22 Plt Morphology Comment Normal (NORMAL) 03/09/20 05:35 RBC Morphology Abnormal (NORMAL) A 03/09/20 05:35 Hypochromasia Slight A 03/09/20 05:35 Sodium 138 mmol/L (136-145) 03/14/20 04:22 Corrected Sodium 139 mmol/L (136-145) 03/14/20 04:22 Potassium 3.6 mmol/L (3.5-5.1) 03/14/20 04:22 Chloride 103 mmol/L (98-107) 03/14/20 04:22 Carbon Dioxide 28.8 mmol/L (21-32) 03/14/20 04:22 BUN 20 mg/dL (7-18) H 03/14/20 04:22 Creatinine 2.49 mg/dL (0.55-1.02) H 03/14/20 04:22 Est GFR (MDRD) Af Amer 24 (>60) L 03/14/20 04:22 Est GFR (MDRD) Non-Af 19 (>60) L 03/14/20 04:22 Glucose 122 mg/dL (65-99) H 03/14/20 04:22 POC Glucose (mg/dL) 124 mg/dL (65-99) H 03/14/20 05:31 Calcium 9.2 mg/dL (8.5-10.1) 03/14/20 04:22 Corrected Calcium 9.9 mg/dL (8.5-10.1) 03/14/20 04:22 Magnesium 2.4 mg/dL (1.7-2.9) 03/12/20 04:31 Iron 41 ug/dL (50-175) L 03/03/20 05:37 Transferrin 133 mg/dL (202-364) L 03/03/20 05:37 Ferritin 252 ng/mL (8-252) 03/03/20 05:37 Total Bilirubin 0.20 mg/dL (0.2-1.0) 03/14/20 04:22 AST 6 Units/L (15-37) L 03/14/20 04:22 ALT 11 Units/L (12-78) L 03/14/20 04:22 Alkaline Phosphatase 46 Units/L (46-116) 03/14/20 04:22 Creatine Kinase 73 Units/L (26-192) 03/02/20 21:58 CK-MB (CK-2) 1.1 ng/mL (0-4.0) 03/02/20 21:58 CK/CKMB % Calc 1.5 % (<4) 03/02/20 21:58 Troponin I 0.05 ng/mL (0-1.5) 03/02/20 21:58 Total Protein 5.4 g/dL (6.4-8.2) L 03/14/20 04:22 Albumin 3.1 g/dL (3.4-5.0) L 03/14/20 04:22 Globulin 2.3 g/dL (2.5-4.5) L 03/14/20 04:22 Albumin/Globulin Ratio 1.3 Ratio (1.1-2.1) 03/14/20 04:22 Amylase 37 Units/L (25-115) 03/06/20 05:20 Lipase 75 Units/L (73-393) 03/06/20 05:20 Carcinoembryonic Ag 2.4 ng/mL (0.0-3.0) 03/06/20 05:20 Vitamin B12 291 pg/mL (193-986) 03/03/20 05:37 Folate 19.4 ng/mL (>8.6) 03/03/20 05:37 Specimen Type Clean catch urine 03/02/20 17:58 Urine Color Yellow (YELLOW) 03/02/20 17:58 Urine Appearance Clear (CLEAR) 03/02/20 17:58 Urine pH 7.0 (5.0 - 8.0) 03/02/20 17:58 Ur Specific [place] 1.015 (1.000-1.030) 03/02/20 17:58 Urine Protein 4+ (NEGATIVE) 03/02/20 17:58 Urine Glucose (UA) Negative (NEGATIVE) 03/02/20 17:58 Urine Ketones Negative (NEGATIVE) 03/02/20 17:58 Urine Occult Blood Negative (NEGATIVE) 03/02/20 17:58 Urine Nitrite Negative (NEGATIVE) 03/02/20 17:58 Urine Bilirubin Negative (NEGATIVE) 03/02/20 17:58 Urine Urobilinogen Normal (NORMAL) 03/02/20 17:58 Ur Leukocyte Esterase 1+ (NEGATIVE) 03/02/20 17:58 Urine RBC 0-2 /HPF (0-3) 03/02/20 17:58 Urine WBC 3-5 /HPF (0-5) 03/02/20 17:58 Ur Squamous Epith Cells Few /HPF (NEGATIVE) 03/02/20 17:58 Ur Renal Epithelial Cell Few /HPF (NEGATIVE) 03/02/20 17:58 Amorphous Sediment Trace /HPF (NEGATIVE) 03/02/20 17:58 Urine Bacteria Trace /HPF (NEGATIVE) 03/02/20 17:58 Ur Culture Indicated? No/not indicated 03/02/20 17:58 Stool Description 15 g. liquid 03/06/20 21:53 Stl Occult Blood (IFOB) Positive (NEGATIVE) A 03/06/20 21:53 Tissue Pathology To follow 03/04/20 12:05 Blood Type O POSITIVE 03/09/20 10:43 Antibody Screen Negative 03/09/20 10:43 Crossmatch See Detail 03/09/20 10:43 - Assessment and Plan 1: abdominal pain with moderate ileus and impaction . Gastritis. anemia and CKD. to give miniral oil enema this morning - Problem Patient Problems: Patient Problems Renal failure (ARF), acute on chronic (Acute) N17.9, N18.9 CKD (chronic kidney disease) (Acute) N18.9 Anemia (Acute) D64.9 Gastritis (Acute) K29.70 Nausea & vomiting (Acute) R11.2 Hypertension (Chronic) I10
--- NOTE | 2020-03-14 09:38 | PCM.PROG ---
Progress Note Progress Note for Day of Date of Exam: 03/14/20 Subjective Subjective: PT IS A 84 YO F BEING TREATED FOR INTRACTABLE NAUSEA, VOMITING, ABDOMINAL PAIN, HTN, ANEMIA, AND ACUTE ON CHRONIC RENAL FAILURE. SHE IS SITTING IN RECLINER THIS MORNING. REPORTS HER BREATHING HAS IMPROVED. HOSPITAL COURSE INVOLVED EGD THAT SHOWED MODERATE GASTRITIS, SMALL HIATAL HERNIA, NO BLEEDING, NO ULCERS OR NEOPLASM AND COLONOSCOPY THAT WAS ATTEMPTED, BUT UNSUCCESSFUL DUE TO POOR BOWEL PREP. ON EXAM, HEART IS RRR. BILATERAL LUNGS DIMINISHED LUNG SOUNDS THROUGHOUT. ABDOMEN IS ROUND, SOFT, AND NO TENDERNESS TO PALPATION. LABS/IMAGING WBC 5.1, HGB 8.4, PLT 226, NA 138, K 3.6, CR 2.49, GLUC 122. STOOL POSITIVE FOR OCCULT BLOOD. HER HGB APPEARS TO HAVE STABILIZED. SHE IS RECEIVING IVF NS@50ML/H, ALBUMIN 25% IV DAILY, PEPCID 20MG IV DAILY, PROTONIX 40MG PO BID, GI COCKTAIL 15ML PO QID, DILAUDID 1MG IV Q4H PRN PAIN, HUMULIN R SLIDING SCALE, AND HOME MEDICATIONS ARE RESUMED. CXR:NO CHANGE FROM PRIOR. CONTINUE LASIX 40MG BID. XARELTO HELD, WHILE MONITORING TRENDING HGB. CONTINUE TO MONITOR AND FOLLOW UP LABS IN THE MORNING. Past Medical Family Social History Past Med/Fam/Surg Hx: No changes since H&P Allergies: Allergies codeine Allergy (Intermediate, Verified 03/02/20 14:12) meperidine [From Demerol] Allergy (Verified 03/20/19 11:20) Review of Systems ROS: No change since H&P Vital Signs and I&O's Vital Signs: Temperature 98.1 F Pulse Rate [Right Brachial] 69 Pulse Rate [Left Brachial] 59 Pulse Rate 61 Respiratory Rate 20 Blood Pressure [Left Arm] 158/54 Blood Pressure [Right Arm] 157/70 Blood Pressure 154/65 O2 Sat by Pulse Oximetry 96 Intake and Output: Intake & Output 03/11/20 03/12/20 03/13/20 03/14/20 23:59 23:59 23:59 23:59 Intake Total 9317 / 9317 2870 / 2870 1890 / 1890 240 / 240 Output Total 2400 / 2400 3150 / 3150 2675 / 2675 450 / 450 Balance 6917 / 6917 -280 / -280 -785 / -785 -210 / -210 Physical Exam Oriented: Normal Eyes: Normal Ear: Normal Nose: Normal Throat: Normal Respiratory: Diminished Cardiovascular: Normal : Normal Auscultation: Bowel Sounds: Normal Tenderness: Normal; negative Rebound and Guarding Skin: Decreased Turgur Musculoskeletal: Normal Mood Description: Calm Affect: Normal Speech Pattern: Clear and Appropriate Laboratory and Diagnostics Result Diagrams: 03/14/20 04:22 03/14/20 04:22 Labs: 03/04/20 04:05 Urine,Clean Catch Urine Culture - Final Laboratory WBC 5.1 X10^3/uL (3.6-10.0) 03/14/20 04:22 RBC 2.53 X10^6/uL (3.5-5.4) L 03/14/20 04:22 Hgb 8.4 g/dL (12.0-16.0) L 03/14/20 04:22 Hct 23.7 % (36.0-47.0) L 03/14/20 04:22 MCV 93.8 fL (80.0-100.0) 03/14/20 04:22 MCH 33.2 pg (27.0-34.0) 03/14/20 04:22 MCHC 35.4 g/dL (33.0-35.0) H 03/14/20 04:22 RDW 13.9 % (11.6-16.5) 03/14/20 04:22 Plt Count 226 X10^3/uL (150.0-450.0) 03/14/20 04:22 Plt Count Comment Adequate (ADEQUATE) 03/09/20 05:35 MPV 8.5 fL (7.4-11.0) 03/14/20 04:22 Neut % (Auto) 60.4 % (42.0-75.0) 03/14/20 04:22 Lymph % (Auto) 22.1 % (21.0-51.0) 03/14/20 04:22 [place] % (Auto) 12.8 % (0.0-13.0) 03/14/20 04:22 Eos % (Auto) 4.3 % (0.9-2.9) H 03/14/20 04:22 Baso % (Auto) 0.4 % (0.2-1.0) 03/14/20 04:22 Neut # (Auto) 3.1 x10^3/uL (2.2-4.8) 03/14/20 04:22 Lymph # (Auto) 1.1 X10^3/uL (1.3-2.9) L 03/14/20 04:22 [place] # (Auto) 0.7 x10^3/uL (0.3-0.8) 03/14/20 04:22 Eos # (Auto) 0.2 x10^3/uL (0.0-0.2) 03/14/20 04:22 Baso # (Auto) 0.0 X10^3/uL (0.0-0.1) 03/14/20 04:22 Absolute Nucleated RBC 0.0 /100WBC 03/14/20 04:22 Plt Morphology Comment Normal (NORMAL) 03/09/20 05:35 RBC Morphology Abnormal (NORMAL) A 03/09/20 05:35 Hypochromasia Slight A 03/09/20 05:35 Sodium 138 mmol/L (136-145) 03/14/20 04:22 Corrected Sodium 139 mmol/L (136-145) 03/14/20 04:22 Potassium 3.6 mmol/L (3.5-5.1) 03/14/20 04:22 Chloride 103 mmol/L (98-107) 03/14/20 04:22 Carbon Dioxide 28.8 mmol/L (21-32) 03/14/20 04:22 BUN 20 mg/dL (7-18) H 03/14/20 04:22 Creatinine 2.49 mg/dL (0.55-1.02) H 03/14/20 04:22 Est GFR (MDRD) Af Amer 24 (>60) L 03/14/20 04:22 Est GFR (MDRD) Non-Af 19 (>60) L 03/14/20 04:22 Glucose 122 mg/dL (65-99) H 03/14/20 04:22 POC Glucose (mg/dL) 124 mg/dL (65-99) H 03/14/20 05:31 Calcium 9.2 mg/dL (8.5-10.1) 03/14/20 04:22 Corrected Calcium 9.9 mg/dL (8.5-10.1) 03/14/20 04:22 Magnesium 2.4 mg/dL (1.7-2.9) 03/12/20 04:31 Iron 41 ug/dL (50-175) L 03/03/20 05:37 Transferrin 133 mg/dL (202-364) L 03/03/20 05:37 Ferritin 252 ng/mL (8-252) 03/03/20 05:37 Total Bilirubin 0.20 mg/dL (0.2-1.0) 03/14/20 04:22 AST 6 Units/L (15-37) L 03/14/20 04:22 ALT 11 Units/L (12-78) L 03/14/20 04:22 Alkaline Phosphatase 46 Units/L (46-116) 03/14/20 04:22 Creatine Kinase 73 Units/L (26-192) 03/02/20 21:58 CK-MB (CK-2) 1.1 ng/mL (0-4.0) 03/02/20 21:58 CK/CKMB % Calc 1.5 % (<4) 03/02/20 21:58 Troponin I 0.05 ng/mL (0-1.5) 03/02/20 21:58 Total Protein 5.4 g/dL (6.4-8.2) L 03/14/20 04:22 Albumin 3.1 g/dL (3.4-5.0) L 03/14/20 04:22 Globulin 2.3 g/dL (2.5-4.5) L 03/14/20 04:22 Albumin/Globulin Ratio 1.3 Ratio (1.1-2.1) 03/14/20 04:22 Amylase 37 Units/L (25-115) 03/06/20 05:20 Lipase 75 Units/L (73-393) 03/06/20 05:20 Carcinoembryonic Ag 2.4 ng/mL (0.0-3.0) 03/06/20 05:20 Vitamin B12 291 pg/mL (193-986) 03/03/20 05:37 Folate 19.4 ng/mL (>8.6) 03/03/20 05:37 Specimen Type Clean catch urine 03/02/20 17:58 Urine Color Yellow (YELLOW) 03/02/20 17:58 Urine Appearance Clear (CLEAR) 03/02/20 17:58 Urine pH 7.0 (5.0 - 8.0) 03/02/20 17:58 Ur Specific [place] 1.015 (1.000-1.030) 03/02/20 17:58 Urine Protein 4+ (NEGATIVE) 03/02/20 17:58 Urine Glucose (UA) Negative (NEGATIVE) 03/02/20 17:58 Urine Ketones Negative (NEGATIVE) 03/02/20 17:58 Urine Occult Blood Negative (NEGATIVE) 03/02/20 17:58 Urine Nitrite Negative (NEGATIVE) 03/02/20 17:58 Urine Bilirubin Negative (NEGATIVE) 03/02/20 17:58 Urine Urobilinogen Normal (NORMAL) 03/02/20 17:58 Ur Leukocyte Esterase 1+ (NEGATIVE) 03/02/20 17:58 Urine RBC 0-2 /HPF (0-3) 03/02/20 17:58 Urine WBC 3-5 /HPF (0-5) 03/02/20 17:58 Ur Squamous Epith Cells Few /HPF (NEGATIVE) 03/02/20 17:58 Ur Renal Epithelial Cell Few /HPF (NEGATIVE) 03/02/20 17:58 Amorphous Sediment Trace /HPF (NEGATIVE) 03/02/20 17:58 Urine Bacteria Trace /HPF (NEGATIVE) 03/02/20 17:58 Ur Culture Indicated? No/not indicated 03/02/20 17:58 Stool Description 15 g. liquid 03/06/20 21:53 Stl Occult Blood (IFOB) Positive (NEGATIVE) A 03/06/20 21:53 Tissue Pathology To follow 03/04/20 12:05 Blood Type O POSITIVE 03/09/20 10:43 Antibody Screen Negative 03/09/20 10:43 Crossmatch See Detail 03/09/20 10:43 Plan (1) Gastritis: Status: Acute Qualifiers: Chronicity: acute Gastritis bleeding: presence of bleeding unspecified Gastritis type: unspecified gastritis Qualified Code(s): K29.00 - Acute gastritis without bleeding Plan: NORMAL SALINE AT 50ML/HR, ALBUMIN 25% IV DAILY, PEPCID 20MG IV DAILY, PROTONIX 40MG PO BID, GI COCKTAIL 15ML PO QID, DILAUDID 1MG IV Q4H PRN PAIN, HUMULIN R SLIDING SCALE, AND HOME MEDICATIONS WERE RESUMED (2) Anemia: Status: Acute Qualifiers: Anemia type: iron deficiency Iron deficiency anemia type: chronic blood loss Qualified Code(s): D50.0 - Iron deficiency anemia secondary to blood loss (chronic) Plan: TRANSFUSED 1 UNIT PRBC, HGB 9.7>8.7 CONTINUE TO MONITOR (3) Renal failure (ARF), acute on chronic: Status: Acute Qualifiers: Acute renal failure type: unspecified Chronic kidney disease stage: unspecified stage Qualified Code(s): N17.9 - Acute kidney failure, unspecified; N18.9 - Chronic kidney disease, unspecified Plan: CREATININE 2.49 (4) Hypertension: Status: Chronic Qualifiers: Hypertension type: secondary to endocrine disorders Qualified Code(s): I15.2 - Hypertension secondary to endocrine disorders Plan: CONTINUE HOME MEDICATIONS, CONTINUE TO MONITOR (5) Diabetes: Status: Chronic Qualifiers: Diabetes mellitus complication status: with hyperglycemia 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
[2020-03-14] MEDS: LIPITOR TAB 40 MG PO SCH (20:06)
[2020-03-14] MEDS: COZAAR PO SCH (20:06)
[2020-03-14] MEDS: SNACK - Diabetic Appropriate PO SCH (20:07)
[2020-03-14] MEDS: MIRALAX POWDER (1 DOSE 17 G) PO SCH (20:08)
[2020-03-15] MEDS: APRESOLINE TAB 25 MG PO SCH ×3 (05:13→21:03)
[2020-03-15] MEDS: NS + KCL 20 MEQ/L 1,000 ML IV SCH ×2 (05:13→16:53)
[2020-03-15 05:37] LABS: BASOPHILS % (AUTO) 0.3 % (0.2-1.0); EOSINOPHILS # (AUTO) 0.2 x10^3/uL (0.0-0.2); EOSINOPHILS % (AUTO) 3.8 % (0.9-2.9); HEMATOCRIT 24.1 % (36.0-47.0); HEMOGLOBIN 8.4 g/dL (12.0-16.0); LYMPHOCYTES # (AUTO) 0.9 X10^3/uL (1.3-2.9); LYMPHOCYTES % (AUTO) 15.5 % (21.0-51.0); MEAN CORPUSCULAR HEMOGLOBIN 32.8 pg (27.0-34.0); MEAN CORPUSCULAR HGB CONC 34.6 g/dL (33.0-35.0); MEAN CORPUSCULAR VOLUME 94.9 fL (80.0-100.0); MEAN PLATELET VOLUME 8.7 fL (7.4-11.0); MONOCYTES # (AUTO) 0.7 x10^3/uL (0.3-0.8); MONOCYTES % (AUTO) 11.6 % (0.0-13.0); NEUTROPHILS # (AUTO) 3.9 x10^3/uL (2.2-4.8); NEUTROPHILS % (AUTO) 68.8 % (42.0-75.0); PLATELET COUNT 229 X10^3/uL (150.0-450.0); RED BLOOD COUNT 2.54 X10^6/uL (3.5-5.4); RED CELL DISTRIBUTION WIDTH 13.6 % (11.6-16.5); WHITE BLOOD COUNT 5.6 X10^3/uL (3.6-10.0)
[2020-03-15 05:38] LABS: ALBUMIN 3.2 g/dL (3.4-5.0); CALCIUM 9.2 mg/dL (8.5-10.1); CARBON DIOXIDE 31.6 mmol/L (21-32); COR CA(FOR HYPOALB) 9.8 mg/dL (8.5-10.1); CREATININE 2.6 mg/dL (0.55-1.02); TOTAL PROTEIN 5.5 g/dL (6.4-8.2)
--- NOTE | 2020-03-15 06:04 | RAD ---
HISTORYShortness of breathSTUDYCHEST, 1 [id number] heart remains mildly enlarged. The laney are normal. Haziness is again identified in the lower 2/3 of both hemithoraces likely due in part to pleural effusion and likely also lower lobe parenchymal lung disease. The appearance is unchanged when compared with the prior examination. The upper lung fuentes remain clear. Bony thorax is unremarkable.IMPRESSIONHaziness throughout the lower 2/3 of both hemithoraces likely due to pleural effusions and parenchymal lung disease. Unchanged in appearance from the prior examinationElectronically signed by: JOSEPHINE ASHFORD (March 15, 2020 06:03:38)
--- NOTE | 2020-03-15 09:11 | PCM.PROG ---
Progress Note - Progress Note for Day of Date of Exam: 03/11/20 - Subjective Subjective: IS BEING TREATED FOR INTRACTABLE NAUSEA, VOMITING, ABDOMINAL PAIN, HTN, ANEMIA, AND ACUTE ON CHRONIC RENAL FAILURE. SHE RECEIVED ONE UNIT OF PRBC SATURDAY. TODAY, SHE IS ALERT AND ORIENTED, SITTING UP IN CHAIR ON MORNING ROUNDS. SHE CONTINUES WITH COMPLAINTS OF UPPER ABDOMINAL PAIN, WEAKNESS, AND SHORTNESS OF BREATH. SHE HAD AN EGD ON SATURDAY, WHICH REVEALED MODERATE GASTRITIS, SMALL HIATAL HERNIA, NO BLEEDING, NO ULCERS OR NEOPLASM. BIOPSIES WERE TAKEN. COLONOSCOPY WAS ATTEMPTED, BUT WAS UNSUCCESSFUL DUE TO POOR BOWEL PREP. ON EXAMINATION, HEART IS REGULAR IN RATE AND RHYTHM. BILATERAL LUNGS ARE NOTED WITH DIMINISHED LUNG SOUNDS THROUGHOUT. ABDOMEN IS ROUND, SOFT, AND NOTED WITH DIFFUSE TENDERNESS TO PALPATION. HER VITALS THIS MORNING ARE: 97.6-67-20-94%-186/74. LABS WERE OBTAINED. ABNORMAL LAB VALUES INCLUDE THE FOLLOWING: RBC 2.96, HGB 9.7, HCT 27.8, BUN 19, CREATININE 2.36, GLUCOSE 101, AST 13, TOTAL PROTEIN 5.8, ALBUMIN 3.2. STOOL POSITIVE FOR OCCULT BLOOD. AN AB DOMEN/PELVIS CT WAS REPEATED THIS MORNING AND REVEALED: 1. Liquid stool within the colon consistent with diarrheal illness. 2. Worsening pleural effusions. 3. Severe vascular disease which is poorly evaluated in the absence of intravenous contrast. SHE IS CURRENTLY RECEIVING NORMAL SALINE AT 120ML/HR, ALBUMIN 25% IV DAILY, PEPCID 20MG IV DAILY, PROTONIX 40MG PO BID, GI COCKTAIL 15ML PO QID, DILAUDID 1MG IV Q4H PRN PAIN, HUMULIN R SLIDING SCALE, AND HOME MEDICATIONS WERE RESUMED WITH THE EXCEPTION OF HER LASIX. XARELTO HAS BEEN HELD WELL. TODAY, WE WILL DECREASE HER IVF TO 50ML/HR, START THE BIPAP, AND ADMINISTER LASIX 40MG IV X 1 DOSE. WE WILL REPEAT AN ABDOMEN/PELVIS CT WITH ORAL CONTRAST IN THE MORNING. OTHERWISE, WE PLAN TO FOLLOW UP WITH AM LABS AND CONTINUE TO MONITOR. - Past Medical Family Social History Past Med/Fam/Surg Hx: No changes since H&P Allergies: Allergies codeine Allergy (Intermediate, Verified 03/02/20 14:12) meperidine [From Demerol] Allergy (Verified 03/20/19 11:20) - Review of Systems ROS: No change since H&P - Vital Signs and I&O's Vital Signs: Temperature 97.9 F Pulse Rate [Right Brachial] 62 Pulse Rate [Left Brachial] 66 Pulse Rate 83 Respiratory Rate 18 Blood Pressure [Left Arm] 172/72 Blood Pressure [Right Arm] 157/70 Blood Pressure 154/65 O2 Sat by Pulse Oximetry 96 Intake and Output: Intake & Output 03/12/20 03/13/20 03/14/20 03/15/20 11:59 11:59 11:59 11:59 Intake Total 9417 / 9417 2770 / 2770 1530 / 1530 2554 / 2554 Output Total 2650 / 2650 3300 / 3300 2425 / 2425 2100 / 2100 Balance 6767 / 6767 -530 / -530 -895 / -895 454 / 454 - Physical Exam Oriented: Normal Eyes: Normal Ear: Normal Nose: Normal Throat: Normal Respiratory: Diminished Cardiovascular: Normal : Normal Auscultation: Bowel Sounds: Normal Palpation: Normal Tenderness: Normal. negative: Rebound, Guarding Skin: Decreased Turgur Musculoskeletal: Normal Mood Description: Calm Affect: Normal Speech Pattern: Clear, Appropriate - Laboratory and Diagnostics Result Diagrams: 03/15/20 04:20 03/15/20 04:20 Labs: 03/04/20 04:05 Urine,Clean Catch Urine Culture - Final Laboratory WBC 5.6 X10^3/uL (3.6-10.0) 03/15/20 04:20 RBC 2.54 X10^6/uL (3.5-5.4) L 03/15/20 04:20 Hgb 8.4 g/dL (12.0-16.0) L 03/15/20 04:20 Hct 24.1 % (36.0-47.0) L 03/15/20 04:20 MCV 94.9 fL (80.0-100.0) 03/15/20 04:20 MCH 32.8 pg (27.0-34.0) 03/15/20 04:20 MCHC 34.6 g/dL (33.0-35.0) 03/15/20 04:20 RDW 13.6 % (11.6-16.5) 03/15/20 04:20 Plt Count 229 X10^3/uL (150.0-450.0) 03/15/20 04:20 Plt Count Comment Adequate (ADEQUATE) 03/09/20 05:35 MPV 8.7 fL (7.4-11.0) 03/15/20 04:20 Neut % (Auto) 68.8 % (42.0-75.0) 03/15/20 04:20 Lymph % (Auto) 15.5 % (21.0-51.0) L 03/15/20 04:20 [place] % (Auto) 11.6 % (0.0-13.0) 03/15/20 04:20 Eos % (Auto) 3.8 % (0.9-2.9) H 03/15/20 04:20 Baso % (Auto) 0.3 % (0.2-1.0) 03/15/20 04:20 Neut # (Auto) 3.9 x10^3/uL (2.2-4.8) 03/15/20 04:20 Lymph # (Auto) 0.9 X10^3/uL (1.3-2.9) L 03/15/20 04:20 [place] # (Auto) 0.7 x10^3/uL (0.3-0.8) 03/15/20 04:20 Eos # (Auto) 0.2 x10^3/uL (0.0-0.2) 03/15/20 04:20 Baso # (Auto) 0.0 X10^3/uL (0.0-0.1) 03/15/20 04:20 Absolute Nucleated RBC 0.0 /100WBC 03/15/20 04:20 Plt Morphology Comment Normal (NORMAL) 03/09/20 05:35 RBC Morphology Abnormal (NORMAL) A 03/09/20 05:35 Hypochromasia Slight A 03/09/20 05:35 Sodium 138 mmol/L (136-145) 03/15/20 04:20 Corrected Sodium 139 mmol/L (136-145) 03/15/20 04:20 Potassium 3.9 mmol/L (3.5-5.1) 03/15/20 04:20 Chloride 102 mmol/L (98-107) 03/15/20 04:20 Carbon Dioxide 31.6 mmol/L (21-32) 03/15/20 04:20 BUN 21 mg/dL (7-18) H 03/15/20 04:20 Creatinine 2.60 mg/dL (0.55-1.02) H 03/15/20 04:20 Est GFR (MDRD) Af Amer 22 (>60) L 03/15/20 04:20 Est GFR (MDRD) Non-Af 19 (>60) L 03/15/20 04:20 Glucose 149 mg/dL (65-99) H 03/15/20 04:20 POC Glucose (mg/dL) 125 mg/dL (65-99) H 03/15/20 05:26 Calcium 9.2 mg/dL (8.5-10.1) 03/15/20 04:20 Corrected Calcium 9.8 mg/dL (8.5-10.1) 03/15/20 04:20 Magnesium 2.4 mg/dL (1.7-2.9) 03/12/20 04:31 Iron 41 ug/dL (50-175) L 03/03/20 05:37 Transferrin 133 mg/dL (202-364) L 03/03/20 05:37 Ferritin 252 ng/mL (8-252) 03/03/20 05:37 Total Bilirubin 0.30 mg/dL (0.2-1.0) 03/15/20 04:20 AST 8 Units/L (15-37) L 03/15/20 04:20 ALT 11 Units/L (12-78) L 03/15/20 04:20 Alkaline Phosphatase 42 Units/L (46-116) L 03/15/20 04:20 Creatine Kinase 73 Units/L (26-192) 03/02/20 21:58 CK-MB (CK-2) 1.1 ng/mL (0-4.0) 03/02/20 21:58 CK/CKMB % Calc 1.5 % (<4) 03/02/20 21:58 Troponin I 0.05 ng/mL (0-1.5) 03/02/20 21:58 Total Protein 5.5 g/dL (6.4-8.2) L 03/15/20 04:20 Albumin 3.2 g/dL (3.4-5.0) L 03/15/20 04:20 Globulin 2.3 g/dL (2.5-4.5) L 03/15/20 04:20 Albumin/Globulin Ratio 1.4 Ratio (1.1-2.1) 03/15/20 04:20 Amylase 37 Units/L (25-115) 03/06/20 05:20 Lipase 75 Units/L (73-393) 03/06/20 05:20 Carcinoembryonic Ag 2.4 ng/mL (0.0-3.0) 03/06/20 05:20 Vitamin B12 291 pg/mL (193-986) 03/03/20 05:37 Folate 19.4 ng/mL (>8.6) 03/03/20 05:37 Specimen Type Clean catch urine 03/02/20 17:58 Urine Color Yellow (YELLOW) 03/02/20 17:58 Urine Appearance Clear (CLEAR) 03/02/20 17:58 Urine pH 7.0 (5.0 - 8.0) 03/02/20 17:58 Ur Specific [place] 1.015 (1.000-1.030) 03/02/20 17:58 Urine Protein 4+ (NEGATIVE) 03/02/20 17:58 Urine Glucose (UA) Negative (NEGATIVE) 03/02/20 17:58 Urine Ketones Negative (NEGATIVE) 03/02/20 17:58 Urine Occult Blood Negative (NEGATIVE) 03/02/20 17:58 Urine Nitrite Negative (NEGATIVE) 03/02/20 17:58 Urine Bilirubin Negative (NEGATIVE) 03/02/20 17:58 Urine Urobilinogen Normal (NORMAL) 03/02/20 17:58 Ur Leukocyte Esterase 1+ (NEGATIVE) 03/02/20 17:58 Urine RBC 0-2 /HPF (0-3) 03/02/20 17:58 Urine WBC 3-5 /HPF (0-5) 03/02/20 17:58 Ur Squamous Epith Cells Few /HPF (NEGATIVE) 03/02/20 17:58 Ur Renal Epithelial Cell Few /HPF (NEGATIVE) 03/02/20 17:58 Amorphous Sediment Trace /HPF (NEGATIVE) 03/02/20 17:58 Urine Bacteria Trace /HPF (NEGATIVE) 03/02/20 17:58 Ur Culture Indicated? No/not indicated 03/02/20 17:58 Stool Description 15 g. liquid 03/06/20 21:53 Stl Occult Blood (IFOB) Positive (NEGATIVE) A 03/06/20 21:53 Tissue Pathology To follow 03/04/20 12:05 Blood Type O POSITIVE 03/09/20 10:43 Antibody Screen Negative 03/09/20 10:43 Crossmatch See Detail 03/09/20 10:43 - Plan (1) Gastritis Status: Acute Qualifiers: Gastritis type: unspecified gastritis Chronicity: acute Gastritis b leeding: presence of bleeding unspecified Qualified Code(s): K29.00 - Acute gastritis without bleeding Plan: NORMAL SALINE AT 50ML/HR, ALBUMIN 25% IV DAILY, PEPCID 20MG IV DAILY, PROTONIX 40MG PO BID, GI COCKTAIL 15ML PO QID, DILAUDID 1MG IV Q4H PRN PAIN, HUMULIN R SLIDING SCALE, AND HOME MEDICATIONS WERE RESUMED (2) Anemia Status: Acute Qualifiers: Anemia type: iron deficiency Iron deficiency anemia type: chronic blood loss Qualified Code(s): D50.0 - Iron deficiency anemia secondary to blood loss (chronic) Plan: TRANSFUSED 1 UNIT PRBC,. HGB 9.7>8.7. 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
[2020-03-15] MEDS: LEVSIN/MAALOX/LIDOC VISC PO SCH ×4 (09:14→20:37)
[2020-03-15] MEDS: PROCARDIA XL PO SCH (09:15)
[2020-03-15] MEDS: PROTONIX INJ 40 MG VIAL IVP SCH ×2 (09:20→20:36)
[2020-03-15] MEDS: ACTOS PO SCH (09:37)
[2020-03-15] MEDS: COREG TAB 25 MG PO SCH ×2 (09:38→20:36)
[2020-03-15] MEDS: ELAVIL PO SCH (09:39)
[2020-03-15] MEDS: NITRODUR PATCH 0.4 MG/HR TD SCH (09:39)
[2020-03-15] MEDS: LASIX IVP SCH ×2 (09:39→17:27)
[2020-03-15] MEDS: COLACE CAP 100 MG PO SCH ×2 (09:40→20:37)
[2020-03-15] MEDS: PEPCID 20 MG IV PREMIX* 20 MG/50 ML BAG IV SCH (09:41)
[2020-03-15] MEDS: ALBUMIN HUMAN 25%- 100 ML 100 ML IV SCH (09:42)
[2020-03-15] MEDS: FOLIC ACID TAB 1 MG PO SCH (09:43)
[2020-03-15] MEDS: PULMICORT NEB TX 0.5 MG NEB SCH ×2 (09:55→21:00)
--- NOTE | 2020-03-15 10:54 | PCM.PROG ---
Progress Note - Progress Note for Day of Date of Exam: 03/15/20 - Subjective Subjective: IS BEING TREATED FOR INTRACTABLE NAUSEA, VOMITING, ABDOMINAL PAIN, HTN, ANEMIA, AND ACUTE ON CHRONIC RENAL FAILURE. SHE HAS RECEIVED ONE UNIT OF PRBC SINCE ADMISSION. TODAY, SHE IS ALERT AND ORIENTED, SITTING UP IN CHAIR ON MORNING ROUNDS. SHE CONTINUES WITH COMPLAINTS OF UPPER ABDOMINAL PAIN, WEAKNESS, AND SHORTNESS OF BREATH. SHE HAD AN EGD ON SATURDAY, WHICH REVEALED MODERATE GASTRITIS, SMALL HIATAL HERNIA, NO BLEEDING, NO ULCERS OR NEOPLASM. BIOPSIES WERE TAKEN. COLONOSCOPY WAS ATTEMPTED, BUT WAS UNSUCCESSFUL DUE TO POOR BOWEL PREP. HAS BEEN FOLLOWING PATIENT. HE HAS ORDERED A REPEAT KUB THIS MORNING. ON EXAMINATION, HEART IS REGULAR IN RATE AND RHYTHM. BILATERAL LUNGS ARE NOTED WITH DIMINISHED LUNG SOUNDS THROUGHOUT. ABDOMEN IS ROUND, SOFT, AND NOTED WITH DIFFUSE TENDERNESS TO PALPATION. HER VITALS THIS MORNING ARE: 97.9-62-18-96%-172/72. LABS WERE OBTAINED. ABNORMAL LAB VALUES INCLUDE THE FOLLOWING: RBC 2.54, HGB 8.4, HCT 24.1, BUN 21, CREATININE 2.60, GLUCOSE 149, AST 8, ALT 11, ALK PHOS 42, TOTAL PROTEIN 5.5, ALBUMIN 3.2, GLOBULIN 2.3. A CHEST XRAY WAS OBTAINED AND REVEALED: Haziness throughout the lower 2/3 of both hemithoraces likely due to pleural effusions and parenchymal lung disease. Unchanged in appearance from the prior examination. SHE HAS BEEN UTILIZING THE BIPAP. SHE IS CURRENTLY RECEIVING NORMAL SALINE WITH 20MEQ KCL AT 50 ML/HR, LASIX 40MG IV BID, ALBUMIN 25% IV DAILY, PEPCID 20MG IV DAILY, PROTONIX 40MG PO BID, GI COCKTAIL 15ML PO QID, COLACE 200MG PO Q12H, MIRALAX 17G PO HS, DILAUDID 1MG IV Q4H PRN PAIN, HUMULIN R SLIDING SCALE, AND HOME MEDICATIONS WERE RESUMED. XARELTO HAS BEEN HELD. OTHERWISE, WE PLAN TO FOLLOW UP WITH AM LABS AND CONTINUE TO MONITOR. - Past Medical Family Social History Past Med/Fam/Surg Hx: No changes since H&P Allergies: Allergies codeine Allergy (Intermediate, Verified 03/02/20 14:12) meperidine [From Demerol] Allergy (Verified 03/20/19 11:20) - Review of Systems ROS: No change since H&P - Vital Signs and I&O's Vital Signs: Temperature 97.9 F Pulse Rate [Right Brachial] 62 Pulse Rate [Left Brachial] 66 Pulse Rate 83 Respiratory Rate 18 Blood Pressure [Left Arm] 172/72 Blood Pressure [Right Arm] 157/70 Blood Pressure 154/65 O2 Sat by Pulse Oximetry 96 Intake and Output: Intake & Output 03/12/20 03/13/20 03/14/20 03/15/20 11:59 11:59 11:59 11:59 Intake Total 9417 / 9417 2770 / 2770 1530 / 1530 2554 / 2554 Output Total 2650 / 2650 3300 / 3300 2425 / 2425 2100 / 2100 Balance 6767 / 6767 -530 / -530 -895 / -895 454 / 454 - Physical Exam Oriented: Normal Eyes: Normal Ear: Normal Nose: Normal Throat: Normal Respiratory: Diminished Cardiovascular: Normal : Normal Auscultation: Bowel Sounds: Normal Palpation: Normal Tenderness: Normal. negative: Rebound, Guarding Skin: Decreased Turgur Musculoskeletal: Normal Mood Description: Calm Affect: Normal Speech Pattern: Clear, Appropriate - Laboratory and Diagnostics Result Diagrams: 03/15/20 04:20 03/15/20 04:20 Labs: 03/04/20 04:05 Urine,Clean Catch Urine Culture - Final Laboratory WBC 5.6 X10^3/uL (3.6-10.0) 03/15/20 04:20 RBC 2.54 X10^6/uL (3.5-5.4) L 03/15/20 04:20 Hgb 8.4 g/dL (12.0-16.0) L 03/15/20 04:20 Hct 24.1 % (36.0-47.0) L 03/15/20 04:20 MCV 94.9 fL (80.0-100.0) 03/15/20 04:20 MCH 32.8 pg (27.0-34.0) 03/15/20 04:20 MCHC 34.6 g/dL (33.0-35.0) 03/15/20 04:20 RDW 13.6 % (11.6-16.5) 03/15/20 04:20 Plt Count 229 X10^3/uL (150.0-450.0) 03/15/20 04:20 Plt Count Comment Adequate (ADEQUATE) 03/09/20 05:35 MPV 8.7 fL (7.4-11.0) 03/15/20 04:20 Neut % (Auto) 68.8 % (42.0-75.0) 03/15/20 04:20 Lymph % (Auto) 15.5 % (21.0-51.0) L 03/15/20 04:20 [place] % (Auto) 11.6 % (0.0-13.0) 03/15/20 04:20 Eos % (Auto) 3.8 % (0.9-2.9) H 03/15/20 04:20 Baso % (Auto) 0.3 % (0.2-1.0) 03/15/20 04:20 Neut # (Auto) 3.9 x10^3/uL (2.2-4.8) 03/15/20 04:20 Lymph # (Auto) 0.9 X10^3/uL (1.3-2.9) L 03/15/20 04:20 [place] # (Auto) 0.7 x10^3/uL (0.3-0.8) 03/15/20 04:20 Eos # (Auto) 0.2 x10^3/uL (0.0-0.2) 03/15/20 04:20 Baso # (Auto) 0.0 X10^3/uL (0.0-0.1) 03/15/20 04:20 Absolute Nucleated RBC 0.0 /100WBC 03/15/20 04:20 Plt Morphology Comment Normal (NORMAL) 03/09/20 05:35 RBC Morphology Abnormal (NORMAL) A 03/09/20 05:35 Hypochromasia Slight A 03/09/20 05:35 Sodium 138 mmol/L (136-145) 03/15/20 04:20 Corrected Sodium 139 mmol/L (136-145) 03/15/20 04:20 Potassium 3.9 mmol/L (3.5-5.1) 03/15/20 04:20 Chloride 102 mmol/L (98-107) 03/15/20 04:20 Carbon Dioxide 31.6 mmol/L (21-32) 03/15/20 04:20 BUN 21 mg/dL (7-18) H 03/15/20 04:20 Creatinine 2.60 mg/dL (0.55-1.02) H 03/15/20 04:20 Est GFR (MDRD) Af Amer 22 (>60) L 03/15/20 04:20 Est GFR (MDRD) Non-Af 19 (>60) L 03/15/20 04:20 Glucose 149 mg/dL (65-99) H 03/15/20 04:20 POC Glucose (mg/dL) 125 mg/dL (65-99) H 03/15/20 05:26 Calcium 9.2 mg/dL (8.5-10.1) 03/15/20 04:20 Corrected Calcium 9.8 mg/dL (8.5-10.1) 03/15/20 04:20 Magnesium 2.4 mg/dL (1.7-2.9) 03/12/20 04:31 Iron 41 ug/dL (50-175) L 03/03/20 05:37 Transferrin 133 mg/dL (202-364) L 03/03/20 05:37 Ferritin 252 ng/mL (8-252) 03/03/20 05:37 Total Bilirubin 0.30 mg/dL (0.2-1.0) 03/15/20 04:20 AST 8 Units/L (15-37) L 03/15/20 04:20 ALT 11 Units/L (12-78) L 03/15/20 04:20 Alkaline Phosphatase 42 Units/L (46-116) L 03/15/20 04:20 Creatine Kinase 73 Units/L (26-192) 03/02/20 21:58 CK-MB (CK-2) 1.1 ng/mL (0-4.0) 03/02/20 21:58 CK/CKMB % Calc 1.5 % (<4) 03/02/20 21:58 Troponin I 0.05 ng/mL (0-1.5) 03/02/20 21:58 Total Protein 5.5 g/dL (6.4-8.2) L 03/15/20 04:20 Albumin 3.2 g/dL (3.4-5.0) L 03/15/20 04:20 Globulin 2.3 g/dL (2.5-4.5) L 03/15/20 04:20 Albumin/Globulin Ratio 1.4 Ratio (1.1-2.1) 03/15/20 04:20 Amylase 37 Units/L (25-115) 03/06/20 05:20 Lipase 75 Units/L (73-393) 03/06/20 05:20 Carcinoembryonic Ag 2.4 ng/mL (0.0-3.0) 03/06/20 05:20 Vitamin B12 291 pg/mL (193-986) 03/03/20 05:37 Folate 19.4 ng/mL (>8.6) 03/03/20 05:37 Specimen Type Clean catch urine 03/02/20 17:58 Urine Color Yellow (YELLOW) 03/02/20 17:58 Urine Appearance Clear (CLEAR) 03/02/20 17:58 Urine pH 7.0 (5.0 - 8.0) 03/02/20 17:58 Ur Specific [place] 1.015 (1.000-1.030) 03/02/20 17:58 Urine Protein 4+ (NEGATIVE) 03/02/20 17:58 Urine Glucose (UA) Negative (NEGATIVE) 03/02/20 17:58 Urine Ketones Negative (NEGATIVE) 03/02/20 17:58 Urine Occult Blood Negative (NEGATIVE) 03/02/20 17:58 Urine Nitrite Negative (NEGATIVE) 03/02/20 17:58 Urine Bilirubin Negative (NEGATIVE) 03/02/20 17:58 Urine Urobilinogen Normal (NORMAL) 03/02/20 17:58 Ur Leukocyte Esterase 1+ (NEGATIVE) 03/02/20 17:58 Urine RBC 0-2 /HPF (0-3) 03/02/20 17:58 Urine WBC 3-5 /HPF (0-5) 03/02/20 17:58 Ur Squamous Epith Cells Few /HPF (NEGATIVE) 03/02/20 17:58 Ur Renal Epithelial Cell Few /HPF (NEGATIVE) 03/02/20 17:58 Amorphous Sediment Trace /HPF (NEGATIVE) 03/02/20 17:58 Urine Bacteria Trace /HPF (NEGATIVE) 03/02/20 17:58 Ur Culture Indicated? No/not indicated 03/02/20 17:58 Stool Description 15 g. liquid 03/06/20 21:53 Stl Occult Blood (IFOB) Positive (NEGATIVE) A 03/06/20 21:53 Tissue Pathology To follow 03/04/20 12:05 Blood Type O POSITIVE 03/09/20 10:43 Antibody Screen Negative 03/09/20 10:43 Crossmatch See Detail 03/09/20 10:43 - Plan (1) Gastritis Status: Acute Qualifiers: Gastritis type: unspecified gastritis Chronicity: acute Gastritis bleeding: presence of bleeding unspecified Qualified Code(s): K29.00 - Acute gastritis without bleeding Plan: NORMAL SALINE AT 50ML/HR, ALBUMIN 25% IV DAILY, PEPCID 20MG IV DAILY, PROTONIX 40MG PO BID, GI COCKTAIL 15ML PO QID, DILAUDID 1MG IV Q4H PRN PAIN, HUMULIN R SLIDING SCALE, AND HOME MEDICATIONS WERE RESUMED (2) Anemia Status: Acute Qualifiers: Anemia type: iron deficiency Iron deficiency anemia type: chronic blood loss Qualified Code(s): D50.0 - Iron deficiency anemia secondary to blood loss (chronic) Plan: TRANSFUSED 1 UNIT PRBC,. HGB 9.7>8.7. CONTINUE TO MONITOR (3) Renal failure (ARF), acute on chronic Status: Acute Qualifiers: Acute renal failure type: unspecified Chronic kidney disease stage: unspecified stage Qualified Code(s): N17.9 - Acute kidney failure, unspecified; N18.9 - Chronic kidney disease, unspecified Plan: CONTINUE TO [facility] (4) Hypertension Status: Chronic Qualifiers: Hypertension type: secondary to endocrine disorders Qualified Code(s): I15.2 - Hypertension secondary to endocrine disorders Plan: CONTINUE HOME MEDICATIONS, CONTINUE TO MONITOR (5) Diabetes Status: Chronic Qualifiers: Diabetes mellitus type: type 2 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
--- NOTE | 2020-03-15 11:05 | RAD ---
HISTORYAbdominal painSTUDYKUBCOMPARISONCT abdomen pelvis 03/11/2020FINDINGSThere is is its contrast throughout the colon from the patient's prior CT. The abdominal gas pattern is nonspecific and nonobstructive. No abnormal masses or abnormal calcifications are identified. Regional skeleton is intact.IMPRESSIONUnremarkable KUBElectronically signed by: JOSEPHINE ASHFORD (March 15, 2020 11:04:02)
[2020-03-15] MEDS ORDERED: FLEET ENEMA ADULT PR NR (11:21)
--- NOTE | 2020-03-15 13:32 | DR.PROGNOT ---
Hospital Progress Notes - Progress Note for Day of: Progress Note Date: 03/15/20 - Chief Complaint Chief Complaint: still having moderate diffuse abdominal pain with bloating feeling . had small BM with hard stool .. WBC is normal and Hgb is stable . lytes and LFT all normal .. afebrile and alert .. - Past Medical Family Social History Past Med/Fam/Surg Hx: No changes since H&P Allergies: Allergies codeine Allergy (Intermediate, Verified 03/02/20 14:12) meperidine [From Demerol] Allergy (Verified 03/20/19 11:20) - Review Of Systems ROS: No change since H&P - Vital Signs Vital Signs: Temperature 97.9 F Pulse Rate [Right Brachial] 73 Pulse Rate [Left Brachial] 66 Pulse Rate 65 Respiratory Rate 18 Blood Pressure [Left Arm] 174/99 Blood Pressure [Right Arm] 157/70 Blood Pressure 154/65 O2 Sat by Pulse Oximetry 95 - Physical Exam Oriented: Normal Eyes: Normal Ear: Normal Nose: Normal Throat: Normal Respiratory: Diminished Cardiovascular: Normal : Normal GI:Auscultation: Normal GI:Palpation: Normal GI: Tenderness: Normal, Diffuse (moderate abdominal distention with tympany . BS hypoactive .). negative: Rebound, Guarding Skin: Decreased Turgur Musculoskeletal: Normal Mood Description: Calm Affect: Normal Speech Pattern: Clear, Appropriate - Laboratory and Diagnostics Result Diagrams: 03/15/20 04:20 03/15/20 04:20 Labs: 03/04/20 04:05 Urine,Clean Catch Urine Culture - Final Laboratory WBC 5.6 X10^3/uL (3.6-10.0) 03/15/20 04:20 RBC 2.54 X10^6/uL (3.5-5.4) L 03/15/20 04:20 Hgb 8.4 g/dL (12.0-16.0) L 03/15/20 04:20 Hct 24.1 % (36.0-47.0) L 03/15/20 04:20 MCV 94.9 fL (80.0-100.0) 03/15/20 04:20 MCH 32.8 pg (27.0-34.0) 03/15/20 04:20 MCHC 34.6 g/dL (33.0-35.0) 03/15/20 04:20 RDW 13.6 % (11.6-16.5) 03/15/20 04:20 Plt Count 229 X10^3/uL (150.0-450.0) 03/15/20 04:20 Plt Count Comment Adequate (ADEQUATE) 03/09/20 05:35 MPV 8.7 fL (7.4-11.0) 03/15/20 04:20 Neut % (Auto) 68.8 % (42.0-75.0) 03/15/20 04:20 Lymph % (Auto) 15.5 % (21.0-51.0) L 03/15/20 04:20 [place] % (Auto) 11.6 % (0.0-13.0) 03/15/20 04:20 Eos % (Auto) 3.8 % (0.9-2.9) H 03/15/20 04:20 Baso % (Auto) 0.3 % (0.2-1.0) 03/15/20 04:20 Neut # (Auto) 3.9 x10^3/uL (2.2-4.8) 03/15/20 04:20 Lymph # (Auto) 0.9 X10^3/uL (1.3-2.9) L 03/15/20 04:20 [place] # (Auto) 0.7 x10^3/uL (0.3-0.8) 03/15/20 04:20 Eos # (Auto) 0.2 x10^3/uL (0.0-0.2) 03/15/20 04:20 Baso # (Auto) 0.0 X10^3/uL (0.0-0.1) 03/15/20 04:20 Absolute Nucleated RBC 0.0 /100WBC 03/15/20 04:20 Plt Morphology Comment Normal (NORMAL) 03/09/20 05:35 RBC Morphology Abnormal (NORMAL) A 03/09/20 05:35 Hypochromasia Slight A 03/09/20 05:35 Sodium 138 mmol/L (136-145) 03/15/20 04:20 Corrected Sodium 139 mmol/L (136-145) 03/15/20 04:20 Potassium 3.9 mmol/L (3.5-5.1) 03/15/20 04:20 Chloride 102 mmol/L (98-107) 03/15/20 04:20 Carbon Dioxide 31.6 mmol/L (21-32) 03/15/20 04:20 BUN 21 mg/dL (7-18) H 03/15/20 04:20 Creatinine 2.60 mg/dL (0.55-1.02) H 03/15/20 04:20 Est GFR (MDRD) Af Amer 22 (>60) L 03/15/20 04:20 Est GFR (MDRD) Non-Af 19 (>60) L 03/15/20 04:20 Glucose 149 mg/dL (65-99) H 03/15/20 04:20 POC Glucose (mg/dL) 133 mg/dL (65-99) H 03/15/20 11:19 Calcium 9.2 mg/dL (8.5-10.1) 03/15/20 04:20 Corrected Calcium 9.8 mg/dL (8.5-10.1) 03/15/20 04:20 Magnesium 2.4 mg/dL (1.7-2.9) 03/12/20 04:31 Iron 41 ug/dL (50-175) L 03/03/20 05:37 Transferrin 133 mg/dL (202-364) L 03/03/20 05:37 Ferritin 252 ng/mL (8-252) 03/03/20 05:37 Total Bilirubin 0.30 mg/dL (0.2-1.0) 03/15/20 04:20 AST 8 Units/L (15-37) L 03/15/20 04:20 ALT 11 Units/L (12-78) L 03/15/20 04:20 Alkaline Phosphatase 42 Units/L (46-116) L 03/15/20 04:20 Creatine Kinase 73 Units/L (26-192) 03/02/20 21:58 CK-MB (CK-2) 1.1 ng/mL (0-4.0) 03/02/20 21:58 CK/CKMB % Calc 1.5 % (<4) 03/02/20 21:58 Troponin I 0.05 ng/mL (0-1.5) 03/02/20 21:58 Total Protein 5.5 g/dL (6.4-8.2) L 03/15/20 04:20 Albumin 3.2 g/dL (3.4-5.0) L 03/15/20 04:20 Globulin 2.3 g/dL (2.5-4.5) L 03/15/20 04:20 Albumin/Globulin Ratio 1.4 Ratio (1.1-2.1) 03/15/20 04:20 Amylase 37 Units/L (25-115) 03/06/20 05:20 Lipase 75 Units/L (73-393) 03/06/20 05:20 Carcinoembryonic Ag 2.4 ng/mL (0.0-3.0) 03/06/20 05:20 Vitamin B12 291 pg/mL (193-986) 03/03/20 05:37 Folate 19.4 ng/mL (>8.6) 03/03/20 05:37 Specimen Type Clean catch urine 03/02/20 17:58 Urine Color Yellow (YELLOW) 03/02/20 17:58 Urine Appearance Clear (CLEAR) 03/02/20 17:58 Urine pH 7.0 (5.0 - 8.0) 03/02/20 17:58 Ur Specific [place] 1.015 (1.000-1.030) 03/02/20 17:58 Urine Protein 4+ (NEGATIVE) 03/02/20 17:58 Urine Glucose (UA) Negative (NEGATIVE) 03/02/20 17:58 Urine Ketones Negative (NEGATIVE) 03/02/20 17:58 Urine Occult Blood Negative (NEGATIVE) 03/02/20 17:58 Urine Nitrite Negative (NEGATIVE) 03/02/20 17:58 Urine Bilirubin Negative (NEGATIVE) 03/02/20 17:58 Urine Urobilinogen Normal (NORMAL) 03/02/20 17:58 Ur Leukocyte Esterase 1+ (NEGATIVE) 03/02/20 17:58 Urine RBC 0-2 /HPF (0-3) 03/02/20 17:58 Urine WBC 3-5 /HPF (0-5) 03/02/20 17:58 Ur Squamous Epith Cells Few /HPF (NEGATIVE) 03/02/20 17:58 Ur Renal Epithelial Cell Few /HPF (NEGATIVE) 03/02/20 17:58 Amorphous Sediment Trace /HPF (NEGATIVE) 03/02/20 17:58 Urine Bacteria Trace /HPF (NEGATIVE) 03/02/20 17:58 Ur Culture Indicated? No/not indicated 03/02/20 17:58 Stool Description 15 g. liquid 03/06/20 21:53 Stl Occult Blood (IFOB) Positive (NEGATIVE) A 03/06/20 21:53 Tissue Pathology To follow 03/04/20 12:05 Blood Type O POSITIVE 03/09/20 10:43 Antibody Screen Negative 03/09/20 10:43 Crossmatch See Detail 03/09/20 10:43 - Assessment and Plan 1: abdominal pain with moderate ileus and impaction . Gastritis. anemia and CKD. will give fleet enema . - Problem Patient Problems: Patient Problems Renal failure (ARF), acute on chronic (Acute) N17.9, N18.9 Pleural effusion (Acute) J90 CKD (chronic kidney disease) (Acute) N18.9 Anemia (Acute) D64.9 Gastritis (Acute) K29.70 Nausea & vomiting (Acute) R11.2 Hypertension (Chronic) I10
[2020-03-15] MEDS: COZAAR PO SCH (20:36)
[2020-03-15] MEDS: SNACK - Diabetic Appropriate PO SCH (20:38)
[2020-03-15] MEDS: LIPITOR TAB 40 MG PO SCH (20:39)
[2020-03-15] MEDS: MIRALAX POWDER (1 DOSE 17 G) PO SCH (20:39)
[2020-03-15] MEDS: BENTYL CAP 10 MG PO PRN (20:40)
[2020-03-16] MEDS: VISTARIL PO PRN ×2 (02:04→20:57)
[2020-03-16] MEDS: NS + KCL 20 MEQ/L 1,000 ML IV SCH ×2 (05:02→20:56)
[2020-03-16] MEDS: APRESOLINE TAB 25 MG PO SCH ×3 (05:02→20:59)
[2020-03-16 05:38] LABS: BASOPHILS % (AUTO) 0.4 % (0.2-1.0); EOSINOPHILS # (AUTO) 0.2 x10^3/uL (0.0-0.2); EOSINOPHILS % (AUTO) 4.2 % (0.9-2.9); HEMATOCRIT 22.1 % (36.0-47.0); HEMOGLOBIN 7.7 g/dL (12.0-16.0); LYMPHOCYTES % (AUTO) 18.9 % (21.0-51.0); MEAN CORPUSCULAR HEMOGLOBIN 33.1 pg (27.0-34.0); MEAN CORPUSCULAR VOLUME 94.6 fL (80.0-100.0); MEAN PLATELET VOLUME 8.8 fL (7.4-11.0); MONOCYTES # (AUTO) 0.6 x10^3/uL (0.3-0.8); MONOCYTES % (AUTO) 11.1 % (0.0-13.0); NEUTROPHILS # (AUTO) 3.4 x10^3/uL (2.2-4.8); NEUTROPHILS % (AUTO) 65.4 % (42.0-75.0); PLATELET COUNT 226 X10^3/uL (150.0-450.0); RED BLOOD COUNT 2.34 X10^6/uL (3.5-5.4); RED CELL DISTRIBUTION WIDTH 13.6 % (11.6-16.5); WHITE BLOOD COUNT 5.2 X10^3/uL (3.6-10.0)
[2020-03-16 05:46] LABS: ALBUMIN 3.1 g/dL (3.4-5.0); CALCIUM 9.2 mg/dL (8.5-10.1); CARBON DIOXIDE 31.4 mmol/L (21-32); COR CA(FOR HYPOALB) 9.9 mg/dL (8.5-10.1); CREATININE 2.62 mg/dL (0.55-1.02); TOTAL PROTEIN 5.3 g/dL (6.4-8.2)
[2020-03-16 05:53] LABS: HYPOCHROMASIA SLIGHT; PLATELET MORPHOLOGY COMMENT NORMAL (NORMAL)
--- NOTE | 2020-03-16 06:54 | RAD ---
HISTORYShortness of breathSTUDYCHEST, 1 [id number]/26/2020FINDINGSThe heart is within normal limits in size. The laney are normal. Upper lung fuentes are clear. Haziness again identified in the lower 2/3 of both hemithoraces due in part to pleural effusions. There is likely bilateral lower lobe parenchymal lung disease present also. The appearance is unchanged from the prior examination. Bony thorax is unremarkable.IMPRESSIONNo significant change from the prior examinationElectronically signed by: JOSEPHINE ASHFORD (March 16, 2020 06:53:28)
[2020-03-16] MEDS: COLACE CAP 100 MG PO SCH ×2 (08:21→20:55)
[2020-03-16] MEDS: COREG TAB 25 MG PO SCH ×2 (08:21→20:55)
[2020-03-16] MEDS: ACTOS PO SCH (08:21)
[2020-03-16] MEDS: PEPCID 20 MG IV PREMIX* 20 MG/50 ML BAG IV SCH (08:22)
[2020-03-16] MEDS: PROTONIX INJ 40 MG VIAL IVP SCH ×2 (08:22→20:55)
[2020-03-16] MEDS: ELAVIL PO SCH (08:22)
[2020-03-16] MEDS: PROCARDIA XL PO SCH (08:22)
[2020-03-16] MEDS: FOLIC ACID TAB 1 MG PO SCH (08:23)
[2020-03-16] MEDS: LASIX IVP SCH ×2 (08:23→17:28)
[2020-03-16] MEDS: LEVSIN/MAALOX/LIDOC VISC PO SCH ×4 (08:23→20:58)
[2020-03-16] MEDS: NITRODUR PATCH 0.4 MG/HR TD SCH (08:24)
[2020-03-16] MEDS: ALBUMIN HUMAN 25%- 100 ML 100 ML IV SCH (08:25)
[2020-03-16] MEDS: PULMICORT NEB TX 0.5 MG NEB SCH ×2 (09:50→20:40)
[2020-03-16] MEDS ORDERED: PROCRIT or EPOGEN VIAL 10,000 UNITS SC ONE (10:12)
[2020-03-16] MEDS ORDERED: PROCRIT or EPOGEN VIAL 10,000 UNITS ONE (12:51)
[2020-03-16] MEDS: HEMOCYTE-PLUS PO SCH (12:53)
[2020-03-16] MEDS: VITAMIN D3 25 mcg (1,000 UNITS) PO SCH (12:54)
[2020-03-16] MEDS ORDERED: NS 500 ML IV 500 ML IV ONE ×2 (15:38→15:39)
[2020-03-16] MEDS: TYLENOL 325 MG TAB PO PRN (15:45)
[2020-03-16] MEDS: BENADRYL INJ 50 MG VIAL IVP PRN (15:45)
[2020-03-16] MEDS: LIPITOR TAB 40 MG PO SCH (20:55)
[2020-03-16] MEDS: COZAAR PO SCH (20:55)
[2020-03-16] MEDS: MIRALAX POWDER (1 DOSE 17 G) PO SCH (20:56)
[2020-03-16] MEDS: SNACK - Diabetic Appropriate PO SCH (20:56)
[2020-03-17 00:42] LABS: HEMATOCRIT 32.3 % (36.0-47.0)
[2020-03-17 00:47] LABS: HEMOGLOBIN 11.1 g/dL (12.0-16.0)
[2020-03-17 05:22] LABS: BASOPHILS % (AUTO) 0.5 % (0.2-1.0); EOSINOPHILS # (AUTO) 0.2 x10^3/uL (0.0-0.2); EOSINOPHILS % (AUTO) 2.7 % (0.9-2.9); HEMATOCRIT 32.9 % (36.0-47.0); HEMOGLOBIN 11.5 g/dL (12.0-16.0); LYMPHOCYTES % (AUTO) 13.1 % (21.0-51.0); MEAN CORPUSCULAR HEMOGLOBIN 32.1 pg (27.0-34.0); MEAN CORPUSCULAR HGB CONC 34.9 g/dL (33.0-35.0); MEAN PLATELET VOLUME 8.5 fL (7.4-11.0); MONOCYTES # (AUTO) 0.8 x10^3/uL (0.3-0.8); MONOCYTES % (AUTO) 9.6 % (0.0-13.0); NEUTROPHILS # (AUTO) 5.9 x10^3/uL (2.2-4.8); NEUTROPHILS % (AUTO) 74.1 % (42.0-75.0); PLATELET COUNT 242 X10^3/uL (150.0-450.0); RED BLOOD COUNT 3.58 X10^6/uL (3.5-5.4); RED CELL DISTRIBUTION WIDTH 14.6 % (11.6-16.5)
[2020-03-17] MEDS: APRESOLINE TAB 25 MG PO SCH ×2 (05:23→14:04)
[2020-03-17 05:36] LABS: ALANINE AMINOTRANSFERASE 11 Units/L (12-78); ALBUMIN 3.6 g/dL (3.4-5.0); ALKALINE PHOSPHATASE 49 Units/L (46-116); ASPARTATE AMINO TRANSFERASE 10 Units/L (15-37); BLOOD UREA NITROGEN 23 mg/dL (7-18); CALCIUM 9.6 mg/dL (8.5-10.1); CHLORIDE 100 mmol/L (98-107); COR NA(FOR HYPERGLY) 136 mmol/L (136-145); CREATININE 2.77 mg/dL (0.55-1.02); SODIUM 136 mmol/L (136-145); eGFR NON BLACK RACES 17 (>60)
--- NOTE | 2020-03-17 06:39 | RAD ---
HISTORYShortness of breathSTUDYCHEST, 1 [id number]/27/2020FINDINGSPatient is rotated to the left. The heart is upper limits normal in size. There is now pulmonary venous congestion present. No definite interstitial or alveolar edema identified. Haziness in the right ron thorax is likely due to pleural effusion likely with some lower lobe infiltrates. Left pleural effusion is present. The left lung appears clear.IMPRESSIONMild pulmonary venous congestionBilateral pleural effusions unchangedLikely right lower lobe infiltrate underlying the pleural effusionThe left lung appears free of acute infiltratesElectronically signed by: JOSEPHINE ASHFORD (March 17, 2020 06:38:46)
[2020-03-17] MEDS: PULMICORT NEB TX 0.5 MG NEB SCH (09:11)
[2020-03-17] MEDS: PROTONIX INJ 40 MG VIAL IVP SCH (09:13)
[2020-03-17] MEDS: ELAVIL PO SCH (09:13)
[2020-03-17] MEDS: VITAMIN D3 25 mcg (1,000 UNITS) PO SCH (09:13)
[2020-03-17] MEDS: LEVSIN/MAALOX/LIDOC VISC PO SCH ×2 (09:13→14:03)
[2020-03-17] MEDS: HEMOCYTE-PLUS PO SCH (09:14)
[2020-03-17] MEDS: PROCARDIA XL PO SCH (09:14)
[2020-03-17] MEDS: LASIX IVP SCH (09:14)
[2020-03-17] MEDS: NITRODUR PATCH 0.4 MG/HR TD SCH (09:16)
[2020-03-17] MEDS: ACTOS PO SCH (09:16)
[2020-03-17] MEDS: COREG TAB 25 MG PO SCH (09:16)
[2020-03-17] MEDS: ALBUMIN HUMAN 25%- 100 ML 100 ML IV SCH (09:18)
[2020-03-17] MEDS: NS + KCL 20 MEQ/L 1,000 ML IV SCH (09:40)
[2020-03-17] MEDS: COLACE CAP 100 MG PO SCH (09:40)
[2020-03-17 18:05] VITALS: BP 195/82
[2020-03-18] MEDS ORDERED: PEPCID 20 MG IV PREMIX* 20 MG/50 ML BAG IV SCH (09:00)
== END 2020-03-17 18:00 | disposition home health service (06) | DRG 683 ==
LOC: MED/SURG
PROVIDERS: ADMIT Internal Medicine; ATTEND Internal Medicine
DX: R10.84 Generalized abdominal pain; K29.00 Acute gastritis without bleeding; K92.2 Gastrointestinal hemorrhage, unspecified; N17.8 Other acute kidney failure; R11.2 Nausea with vomiting, unspecified; Z79.4 Long term (current) use of insulin; J90 Pleural effusion, not elsewhere classified; N18.4 Chronic kidney disease, stage 4 (severe); I13.0 Hypertensive heart and chronic kidney disease with heart failure and stage 1 through stage 4 chronic kidney disease, or unspecified chronic kidney disease; E11.65 Type 2 diabetes mellitus with hyperglycemia; R06.02 Shortness of breath; D50.8 Other iron deficiency anemias; K44.9 Diaphragmatic hernia without obstruction or gangrene; I15.2 Hypertension secondary to endocrine disorders
CPT/HCPCS: 36415; 36430; 71010; 71045; 74000; 74018; 74022; 74176; 76536; 80053; 81001; 82150; 82270; 82378; 82550; 82553; 82607; 82728; 82746; 82947; 83540; 83690; 83735; 84466; 84484; 85014; 85018; 85025; 86850; 86900; 86901; 86922; 87086; 88305; 93005; 94640; 94660; 94760; 97110; 97116; 97162; 97166; 97530; 97535; 99100; A4216; A4222; A4618; A7030; C9113; G0378; J0885; J1170; J1200; J1815; J1940; J2405; J2704; J3490; J7030; J7040; J7120; J7620; J7626; P9016; P9047; Q0177; S0028

== ENCOUNTER 2020-04-15 16:57 | Inpatient (IN) ==
--- NOTE | 2020-04-15 17:42 | DR.GENAD ---
HPI Time Seen Time Seen by Provider: 04/15/20 17:17 Complaint/Symptoms Chief Complaint Doctors Comments: complaint of pain all over, legs swelling 2 weeks, and vomiting today COVID-19 Coronavirus risk:travel/contact w/high risk person: No Has patient experienced Coronavirus symptoms: No Nurses notes reviewed Nurses Notes Review: Yes Source History Provided: Patient and Family Member Mode of Arrival Mode of Arrival: EMS Timing Onset of Chief Complaint: 04/01/20 Came on: Gradually Duration Duration: Constant (leg edema) How lon Duration: Weeks Location Location: legs Severity Severity: Moderate Associated Signs and Symptoms Associated Signs and Symptoms: vomiting PMH PMH Past Medical History: Anxiety, Asthma, Depression, Diabetes, Dyslipidemia, Hypertension and Kidney Stones Past Surgical History: Yes Surgical History: Cholecystectomy, Hysterectomy and Lithotripsy Family History Family Medical History: Cancer, OR and Hypertension Social History Do you use any recreational Drugs:: No ROS Review of Systems Constitutional: Weakness Eyes: No Symptoms Reported ENTM: No Symptoms Reported Respiratoy: Non-Productive Cough Cardiovascular: No Symptoms Reported Gastrointestinal/Abdominal: Nausea and Vomiting Genitourinary: No Symptoms Reported Neurological: Weakness Musculoskeletal: No Symptoms Reported Integumentary: No Symptoms Reported Hematologic/Lymphatic: No Symptoms Reported Endocrine: No Symptoms Reported Psychiatric: Depression All Other Systems: Reviewed and Negative PE Vital Signs Vitals: Temperature 97.9 F Pulse Rate 69 Respiratory Rate 21 Blood Pressure [Left Arm] 195/82 Blood Pressure [Right Arm] 179/64 Blood Pressure 136/64 O2 Sat by Pulse Oximetry 88 General Limitations: No Limitations General Appearance: Alert and In No Apparent Distress Head Head Exam: Normal Inspection, Atraumatic and Normocephalic Eyes Eye exam: Normal Appearance and EOMI ENT ENT Exam: Normal Exam and Normal Oropharynx External Ear Exam: Normal External Inspection Mouth Exam: Normal Inspection Throat Exam: Normal Inspection Neck Neck Exam: Normal Inspection, Full ROM and Trachea Midline Chest Chest Inspection: Normal Inspection Cardiovascular Cardiovascular Exam: Regular Rate Abdominal Exam Abdominal Exam: Normal Inspection and Normal Bowel Sounds Extremities Extremities Exam: Edema (bilateral) Back Back Exam: Normal Inspection Neurologic Neurological Exam: Alert, Oriented X3 and CN II-XII Intact Psychiatric Psychiatric Exam: Depressed and Flat Affect Skin Skin Exam: Normal Color COURSE Consultation Called: 20:15 Call Returned: 20:23 Consultation Comments: case discussed with DR. Rivas admit to treat CHF and rule out OR Education/Counseling Education/Counseling: Patient and Family Educated On: Treatment and Diagnosis ROR Labs Reviewed Laboratory Results Reviewed?: Yes Result Diagrams: 04/15/20 18:24 04/15/20 18: Laboratory: WBC 5.5 X10^3/uL (3.6-10.0) 04/15/20 18: RBC 4.57 X10^6/uL (3.5-5.4) 04/15/20 18: Hgb 14.1 g/dL (12.0-16.0) 04/15/20 18: Hct 43.4 % (36.0-47.0) 04/15/20 18: MCV 95.1 fL (80.0-100.0) 04/15/20 18: MCH 30.9 pg (27.0-34.0) 04/15/20 18: MCHC 32.5 g/dL (33.0-35.0) L 04/15/20: RDW 18.3 % (11.6-16.5) H 04/15/20: Plt Count 284 X10^3/uL (150.0-450.0) 04/15/20 18: MPV 7.5 fL (7.4-11.0) 04/15/20 18: Neut % (Auto) 72.5 % (42.0-75.0) 04/15/20 18: Lymph % (Auto) 16.2 % (21.0-51.0) L 04/15/20: [place] % (Auto) 8.8 % (0.0-13.0) 04/15/20 18: Eos % (Auto) 1.7 % (0.9-2.9) 04/15/20 18: Baso % (Auto) 0.8 % (0.2-1.0) 04/15/20 18: Neut # (Auto) 4.0 x10^3/uL (2.2-4.8) 04/15/20 18: Lymph # (Auto) 0.9 X10^3/uL (1.3-2.9) L 04/15/20 18: [place] # (Auto) 0.5 x10^3/uL (0.3-0.8) 04/15/20 18:24 Eos # (Auto) 0.1 x10^3/uL (0.0-0.2) 04/15/20 18:24 Baso # (Auto) 0.0 X10^3/uL (0.0-0.1) 04/15/20 18:24 Absolute Nucleated RBC 0.1 /100WBC 04/15/20 18:24 PT 13.3 SECONDS (11.8-14.3) 04/15/20 18:24 INR Target Range - 04/15/20 18:24 INR 1.04 (0.8-1.3) 04/15/20 18:24 Sodium 137 mmol/L (136-145) 04/15/20 18:24 Corrected Sodium 137 mmol/L (136-145) 04/15/20 18:24 Potassium 4.9 mmol/L (3.5-5.1) 04/15/20 18:24 Chloride 105 mmol/L (98-107) 04/15/20 18:24 Carbon Dioxide 22.7 mmol/L (21-32) 04/15/20 18:24 BUN 34 mg/dL (7-18) H 04/15/20 18:24 Creatinine 2.40 mg/dL (0.55-1.02) H 04/15/20 18:24 Est GFR (MDRD) Af Amer 25 (>60) L 04/15/20 18:24 Est GFR (MDRD) Non-Af 20 (>60) L 04/15/20 18:24 Glucose 113 mg/dL (65-99) H 04/15/20 18:24 Calcium 8.9 mg/dL (8.5-10.1) 04/15/20 18:24 Corrected Calcium 10.1 mg/dL (8.5-10.1) 04/15/20 18:24 Total Bilirubin 0.20 mg/dL (0.2-1.0) 04/15/20 18:24 AST 19 Units/L (15-37) 04/15/20 18:24 ALT 20 Units/L (12-78) 04/15/20 18:24 Alkaline Phosphatase 84 Units/L (46-116) 04/15/20 18:24 Creatine Kinase 46 Units/L (26-192) 04/15/20 18:24 CK-MB (CK-2) 2.2 ng/mL (0-4.0) 04/15/20 18:24 CK/CKMB % Calc 4.8 % (<4) 04/15/20 18:24 Troponin I 0.05 ng/mL (0-1.5) 04/15/20 18:24 B-Natriuretic Peptide 3610 pg/mL (0-79) H* 04/15/20 18:24 Total Protein 6.1 g/dL (6.4-8.2) L 04/15/20 18:24 Albumin 2.5 g/dL (3.4-5.0) L 04/15/20 18:24 Globulin 3.6 g/dL (2.5-4.5) 04/15/20 18:24 Albumin/Globulin Ratio 0.7 Ratio (1.1-2.1) L 04/15/20 18:24 XRAY XRAY Interpreted by: Radiologist X-ray Results: Chest: cardiomegaly with central congestion and effusion c/w CHF EKG Rate: 70 Wilson: Normal Rhythm: NSR Block: None Hypertrophy: None ST: Nonsp Opioid Opioid Risk Tool Age (Pasha box if 16-45): No History of Preadolescent Sexual Abuse: No Total: 0 Total Score Risk Category: Low Risk Copyright: Walter MARTINEZ predicting aberrant behaviors
[2020-04-15] MEDS ORDERED: ZOFRAN INJ 4 MG VIAL IVP ONE (18:12)
[2020-04-15 18:42] LABS: BASOPHILS % (AUTO) 0.8 % (0.2-1.0); EOSINOPHILS # (AUTO) 0.1 x10^3/uL (0.0-0.2); EOSINOPHILS % (AUTO) 1.7 % (0.9-2.9); HEMATOCRIT 43.4 % (36.0-47.0); HEMOGLOBIN 14.1 g/dL (12.0-16.0); LYMPHOCYTES # (AUTO) 0.9 X10^3/uL (1.3-2.9); LYMPHOCYTES % (AUTO) 16.2 % (21.0-51.0); MEAN CORPUSCULAR HEMOGLOBIN 30.9 pg (27.0-34.0); MEAN CORPUSCULAR HGB CONC 32.5 g/dL (33.0-35.0); MEAN CORPUSCULAR VOLUME 95.1 fL (80.0-100.0); MEAN PLATELET VOLUME 7.5 fL (7.4-11.0); MONOCYTES # (AUTO) 0.5 x10^3/uL (0.3-0.8); MONOCYTES % (AUTO) 8.8 % (0.0-13.0); NEUTROPHILS % (AUTO) 72.5 % (42.0-75.0); PLATELET COUNT 284 X10^3/uL (150.0-450.0); RED BLOOD COUNT 4.57 X10^6/uL (3.5-5.4); RED CELL DISTRIBUTION WIDTH 18.3 % (11.6-16.5); WHITE BLOOD COUNT 5.5 X10^3/uL (3.6-10.0)
[2020-04-15] MEDS ORDERED: ZOFRAN INJ 4 MG VIAL ONE (18:44)
[2020-04-15] MEDS ORDERED: TORADOL 30 MG VIAL IVP ONE (19:08)
[2020-04-15] MEDS ORDERED: TORADOL 30 MG VIAL ONE (19:10)
[2020-04-15 19:11] LABS: CALCIUM 8.9 mg/dL (8.5-10.1); CARBON DIOXIDE 22.7 mmol/L (21-32); CREATININE 2.4 mg/dL (0.55-1.02); TROPONIN I 0.05 ng/mL (0-1.5)
[2020-04-15 19:17] LABS: ALBUMIN 2.5 g/dL (3.4-5.0); CKMB % 4.8 % (<4); COR CA(FOR HYPOALB) 10.1 mg/dL (8.5-10.1); CREATINE KINASE MB 2.2 ng/mL (0-4.0); TOTAL PROTEIN 6.1 g/dL (6.4-8.2)
--- NOTE | 2020-04-15 19:17 | RAD ---
HISTORY:CoughStudy: Single view chestComparison:03/17/2020Findings:There are bilateral pleural effusions with central venous congestion and cardiomegaly suggestive of CHF/pulmonary edema. No pneumothorax identified. Soft tissues appear intact. Osteopenia limits evaluation.IMPRESSION:1. Cardiomegaly with central venous congestion and bilateral pleural effusions suggestive of CHF/pulmonary edema.Electronically signed by: HONORIO KENDRICK (Apr 15, 2020 19:16:16)
[2020-04-15] MEDS ORDERED: LASIX IVP ONE ×2 (20:43→20:48)
[2020-04-15 21:03] LABS: BILIRUBIN,URINE NEGATIVE (NEGATIVE); BLOOD/HEMOGLOBIN,URINE NEGATIVE (NEGATIVE); GLUCOSE, URINE 1+ (NEGATIVE); KETONES,URINE NEGATIVE (NEGATIVE); LEUKOCYTE ESTERASE ,URINE NEGATIVE (NEGATIVE); NITRITES,URINE NEGATIVE (NEGATIVE); PROTEIN,URINE 4+ (NEGATIVE); UROBILINOGEN,URINE NORMAL (NORMAL)
[2020-04-15 21:12] LABS: APPEARANCE,URINE CLEAR (CLEAR); COLOR,URINE YELLOW (YELLOW)
[2020-04-15 21:13] LABS: BACTERIA,URINE NEGATIVE /HPF (NEGATIVE); RBC,URINE 0-2 /HPF (0-3); SQUAMOUS EPITHELIAL CELL,UR FEW /HPF (NEGATIVE)
[2020-04-15] MEDS ORDERED: ZOFRAN INJ 4 MG VIAL IVP PRN (22:44)
[2020-04-15] MEDS: LASIX IVP SCH (23:22)
[2020-04-15] MEDS: ASPIRIN PO SCH (23:42)
[2020-04-15] MEDS: NITRODUR PATCH 0.4 MG/HR TD SCH (23:43)
[2020-04-16 00:50] VITALS: BMI 19.8
[2020-04-16 01:44] LABS: CKMB % 4.2 % (<4); CREATINE KINASE MB 1.6 ng/mL (0-4.0); TROPONIN I 0.03 ng/mL (0-1.5)
[2020-04-16] MEDS: PROVENTIL NEB TX 0.083% 2.5MG/ 3ML NEB SCH ×3 (05:10→21:40)
[2020-04-16] MEDS ORDERED: PROVENTIL NEB TX 0.083% 2.5MG/ 3ML NEB SCH (06:00)
[2020-04-16 06:16] LABS: CALCIUM 8.5 mg/dL (8.5-10.1); CARBON DIOXIDE 24.9 mmol/L (21-32); CREATININE 2.5 mg/dL (0.55-1.02)
[2020-04-16 08:26] LABS: CKMB % 3.5 % (<4); CREATINE KINASE MB 1.3 ng/mL (0-4.0); MAGNESIUM 2.7 mg/dL (1.7-2.9); TROPONIN I 0.04 ng/mL (0-1.5)
[2020-04-16] MEDS: ASPIRIN PO SCH (08:50)
[2020-04-16] MEDS: PROCARDIA XL PO SCH (08:50)
[2020-04-16] MEDS: NIASPAN ER TAB 500 MG PO SCH (08:51)
[2020-04-16] MEDS: PROTONIX TAB 40 MG PO SCH (08:51)
[2020-04-16] MEDS: ACTOS PO SCH (08:51)
[2020-04-16] MEDS: LASIX IVP SCH (08:52)
[2020-04-16] MEDS ORDERED: PULMICORT NEB TX 0.5 MG NEB SCH (09:00)
[2020-04-16] MEDS ORDERED: NIFEDIPINE 90 MG PO SCH (09:00)
[2020-04-16] MEDS: PULMICORT NEB TX 0.5 MG NEB SCH ×2 (09:52→21:40)
--- NOTE | 2020-04-16 11:50 | VAS ---
HISTORYBILATERAL LEG EDEMA [Extremity pain, swelling, and edema]Study: Bilateral lower extremity Doppler venous ultrasound.TECHNIQUE: Multiple combs scale and color flow Doppler images of the deep venous system were obtained of the [right and left] lower extremity.FINDINGS:The deep venous system of the [right and left lower extremities were] evaluated from the level of the common femoral veins through the popliteal veins, bilaterally. Normal color flow and augmentation can be observed. In addition, normal compression is seen throughout the deep venous system. [No See's cyst is seen].IMPRESSION:1. [Negative examination for DVT].Electronically signed by: JEISON BALBUENA III (Apr 16, 2020 11:48:45)
[2020-04-16] MEDS: NITRODUR PATCH 0.4 MG/HR TD SCH (22:28)
[2020-04-17 05:07] LABS: BASOPHILS # (AUTO) 0.1 X10^3/uL (0.0-0.1); BASOPHILS % (AUTO) 0.7 % (0.2-1.0); EOSINOPHILS # (AUTO) 0.1 x10^3/uL (0.0-0.2); EOSINOPHILS % (AUTO) 1.4 % (0.9-2.9); HEMATOCRIT 43.1 % (36.0-47.0); HEMOGLOBIN 13.8 g/dL (12.0-16.0); LYMPHOCYTES # (AUTO) 1.1 X10^3/uL (1.3-2.9); LYMPHOCYTES % (AUTO) 14.8 % (21.0-51.0); MEAN CORPUSCULAR HEMOGLOBIN 30.9 pg (27.0-34.0); MEAN CORPUSCULAR HGB CONC 31.9 g/dL (33.0-35.0); MEAN CORPUSCULAR VOLUME 96.7 fL (80.0-100.0); MEAN PLATELET VOLUME 7.7 fL (7.4-11.0); MONOCYTES # (AUTO) 0.6 x10^3/uL (0.3-0.8); MONOCYTES % (AUTO) 8.8 % (0.0-13.0); NEUTROPHILS # (AUTO) 5.4 x10^3/uL (2.2-4.8); NEUTROPHILS % (AUTO) 74.3 % (42.0-75.0); PLATELET COUNT 316 X10^3/uL (150.0-450.0); RED BLOOD COUNT 4.45 X10^6/uL (3.5-5.4); RED CELL DISTRIBUTION WIDTH 18.2 % (11.6-16.5); WHITE BLOOD COUNT 7.3 X10^3/uL (3.6-10.0)
[2020-04-17 05:21] LABS: ALBUMIN 2.1 g/dL (3.4-5.0); CALCIUM 8.8 mg/dL (8.5-10.1); CARBON DIOXIDE 24.5 mmol/L (21-32); COR CA(FOR HYPOALB) 10.3 mg/dL (8.5-10.1); CREATININE 2.58 mg/dL (0.55-1.02); TOTAL PROTEIN 5.3 g/dL (6.4-8.2)
--- NOTE | 2020-04-17 05:49 | RAD ---
STUDY: CHEST, 1 VIEWCOMPARISON: April 15, 2020HISTORY: SOBFINDINGS:Progressively worsening alveolar airspace disease is seen in the bilateral lower lung zones. Stable small left and small right pleural effusion is noted. Cardiomediastinal contour is stable. No gross pneumothorax is seen. Trachea is midline.IMPRESSION:Progressively worsening alveolar airspace disease is noted in the bilateral lower lung zonesElectronically signed by: Mike Light (Apr 17, 2020 05:48:19)
[2020-04-17] MEDS: PROVENTIL NEB TX 0.083% 2.5MG/ 3ML NEB SCH ×3 (06:28→21:39)
[2020-04-17] MEDS: PROTONIX TAB 40 MG PO SCH (08:52)
[2020-04-17] MEDS: PROCARDIA XL PO SCH (08:52)
[2020-04-17] MEDS: LASIX IVP SCH (08:53)
[2020-04-17] MEDS: ASPIRIN PO SCH (08:53)
[2020-04-17] MEDS: NIASPAN ER TAB 500 MG PO SCH (08:53)
[2020-04-17] MEDS: ACTOS PO SCH (08:53)
[2020-04-17] MEDS: PULMICORT NEB TX 0.5 MG NEB SCH ×2 (09:37→21:39)
[2020-04-17] MEDS: TORADOL 15 MG VIAL IVP SCH ×3 (10:15→22:00)
[2020-04-17] MEDS: APRESOLINE TAB 25 MG PO SCH ×2 (13:23→21:45)
[2020-04-17] MEDS: MORPHINE SULFATE INJ 2 MG INJ IVP PRN (13:23)
[2020-04-17] MEDS: COREG TAB 12.5 MG PO SCH ×2 (13:23→21:45)
[2020-04-17] MEDS: COZAAR PO SCH (21:45)
[2020-04-17] MEDS: NITRODUR PATCH 0.4 MG/HR TD SCH (21:45)
[2020-04-18] MEDS: TORADOL 15 MG VIAL IVP SCH ×2 (04:30→09:09)
[2020-04-18 05:22] LABS: BASOPHILS % (AUTO) 0.3 % (0.2-1.0); EOSINOPHILS # (AUTO) 0.1 x10^3/uL (0.0-0.2); EOSINOPHILS % (AUTO) 0.6 % (0.9-2.9); HEMATOCRIT 45.5 % (36.0-47.0); HEMOGLOBIN 14.7 g/dL (12.0-16.0); LYMPHOCYTES # (AUTO) 0.5 X10^3/uL (1.3-2.9); LYMPHOCYTES % (AUTO) 5.6 % (21.0-51.0); MEAN CORPUSCULAR HEMOGLOBIN 31.1 pg (27.0-34.0); MEAN CORPUSCULAR HGB CONC 32.3 g/dL (33.0-35.0); MEAN CORPUSCULAR VOLUME 96.1 fL (80.0-100.0); MEAN PLATELET VOLUME 7.4 fL (7.4-11.0); MONOCYTES # (AUTO) 0.8 x10^3/uL (0.3-0.8); MONOCYTES % (AUTO) 8.5 % (0.0-13.0); NEUTROPHILS # (AUTO) 8.4 x10^3/uL (2.2-4.8); PLATELET COUNT 333 X10^3/uL (150.0-450.0); RED BLOOD COUNT 4.73 X10^6/uL (3.5-5.4); RED CELL DISTRIBUTION WIDTH 18.5 % (11.6-16.5); WHITE BLOOD COUNT 9.8 X10^3/uL (3.6-10.0)
[2020-04-18 05:43] LABS: ALANINE AMINOTRANSFERASE 14 Units/L (12-78); ALBUMIN 2.1 g/dL (3.4-5.0); ALKALINE PHOSPHATASE 79 Units/L (46-116); ASPARTATE AMINO TRANSFERASE 17 Units/L (15-37); BLOOD UREA NITROGEN 32 mg/dL (7-18); CALCIUM 9.2 mg/dL (8.5-10.1); CARBON DIOXIDE 21.4 mmol/L (21-32); CHLORIDE 104 mmol/L (98-107); COR CA(FOR HYPOALB) 10.7 mg/dL (8.5-10.1); CREATININE 2.74 mg/dL (0.55-1.02); SODIUM 136 mmol/L (136-145); TOTAL PROTEIN 5.4 g/dL (6.4-8.2); eGFR NON BLACK RACES 17 (>60)
[2020-04-18] MEDS: APRESOLINE TAB 25 MG PO SCH ×3 (06:17→21:06)
[2020-04-18] MEDS: PROVENTIL NEB TX 0.083% 2.5MG/ 3ML NEB SCH ×3 (06:18→22:00)
--- NOTE | 2020-04-18 07:34 | RAD ---
HISTORYCongestive heart failureSTUDYChest AP [id number] heart remains enlarged. Pulmonary venous congestion is present. Mild interstitial edema is present. Left pleural effusion obscures a portion of the left lower lobe. Bony thorax is unremarkable.IMPRESSIONCardiomegaly with pulmonary venous congestion and mild interstitial edemaLeft pleural effusion obscuring portion of the left lower lobeElectronically signed by: JOSEPHINE ASHFORD (Apr 18, 2020 07:32:30)
[2020-04-18] MEDS: ASPIRIN PO SCH (09:07)
[2020-04-18] MEDS: COZAAR PO SCH (09:07)
[2020-04-18] MEDS: COREG TAB 12.5 MG PO SCH ×2 (09:08→20:36)
[2020-04-18] MEDS: PROCARDIA XL PO SCH (09:08)
[2020-04-18] MEDS: NIASPAN ER TAB 500 MG PO SCH (09:08)
[2020-04-18] MEDS: PROTONIX TAB 40 MG PO SCH (09:08)
[2020-04-18] MEDS: PULMICORT NEB TX 0.5 MG NEB SCH ×2 (09:55→22:00)
[2020-04-18] MEDS: LOVENOX INJ 30 MG SYR SC SCH (14:01)
[2020-04-18] MEDS: MORPHINE SULFATE INJ 2 MG INJ IVP PRN (20:37)
--- NOTE | 2020-04-18 22:10 | DR.H&P ---
H&P - History & Physical for Day of: H&P Date: 04/15/20 - Chief Complaint Chief Complaint: LOWER EXTREMITY SWELLING, CHEST PAIN, NAUSEA, GENERALIZED ACHING - History of Present Illness History of Present Illness: IS A 84 YEAR OLD PATIENT OF OURS WHO PRESENTED TO THE ER WITH COMPLAINTS OF GENERALIZED PAIN AND ACHING ALL OVER, LOWER EXTREMITY SWELLING X 2 WEEKS, CHEST PAIN, AND NAUSEA AND VOMITING THAT STARTED ONE DAY PRIOR. HER PAST MEDICAL HISTORY INCLUDES ANXIETY, ASTHMA, DEPRESSION, DIABETES, DYSLIPIDEMIA, HTN, KIDNEY STONES, CHOLECYSTECTOMY, HYSTERECTOMY, AND LITHOTRIPSY. ON EXAMINATION, SHE IS NOTED WITH 1+ PITTING EDEMA TO HER LOWER EXTREMITIES. ON ARRIVAL TO THE ER, HER VITALS WERE 97.9-67-18-93%NC-145/67. LABS WERE OBTAINED. ABNORMAL LAB VALUES INCLUDE THE FOLLOWING: BUN 34, CREATININE 2.40, GLUCOSE 113, BNP 3610, TOTAL PROTEIN 6.1, ALBUMIN 2.5. CARDIAC ENZYMES WITHIN NORMAL LIMITS A URINALYSIS WAS OBTAINED AND REVEALED: WBC 0-2, RBC 0-2, LEUKOCYTES NEGATIVE, BACTERIA NEGATIVE, PROTEIN 4+. AN EKG WAS OBTAINED AND REVEALED: SINUS RHYTHM WITH HR 70. A CHEST XRAY WAS OBTAINED AND REVEALED: Cardiomegaly with central venous congestion and bilateral pleural effusions suggestive of CHF/pulmonary edema. SHE WAS GIVEN LASIX 40MG IV X 1, TORADOL 30MG IV X 1 DOSE, AND ZOFRAN 4MG IV X 1 DOSE. SHE WAS ADMITTED TO THE HOSPITAL FOR FURTHER EVALUATION AND TREATMENT OF CHF, ACUTE ON CHRONIC RENAL FAILURE, RULE OUT ACUTE AL. SHE WAS STARTED ON LASIX 40MG IV DAILY, LOVENOX 30MG SC DAILY, ZOFRAN 4MG IV Q8H PRN, MORPINE 1-2MG IV Q4H PRN, NEB [place] BID, AND HER HOME MEDICATIONS WERE RESUMED. TODAY, WE WILL OBTAIN A VENOUS DOPPLER OF HER LOWER EXTREMITIES TO RULE OUT DVT. OTHERWISE, WE WILL FOLLOW UP WITH AM LABS AND CHEST XRAY AND CONTINUE TO MONITOR. - Past Medical History Past Medical History: Hypertension, Dyslipidemia, Diabetes, Depression, Anxiety, Asthma, Kidney Stones - Past Surgical History Surgical History: Cholecystectomy, Hysterectomy, Lithotripsy - Family History Family Medical History: Cancer, AL, Hypertension - Social History Does patient currently use any type of tobacco product: No Have you used tobacco products in the last 12 months: No Type of Tobacco Use: None Does any household member use tobacco: No Alcohol Use: None Drug Use: None - Medications Home Medications: codeine Allergy (Intermediate, Verified 03/02/20 14:12) meperidine [From Demerol] Allergy (Verified 03/20/19 11:20) - Review of Systems Constitutional: Weakness, Malaise Eyes: No Symptoms Reported ENT: No Symptoms Reported Respiratory: No Symptoms Reported Cardiovascular: Chest Pain, Edema (LOWER EXTREMITY SWELLING ) Gastrointestinal: No Symptoms Reported Genitourinary: No Symptoms Reported Musculoskeletal: No Symptoms Reported Skin: No Symptoms Reported Neurological: Weakness - Physical Exam Vital Signs: Temperature 97.8 F Pulse Rate [Left Radial] 61 Pulse Rate 75 Respiratory Rate 18 Blood Pressure [Left Arm] 121/55 Blood Pressure [Right Arm] 179/64 Blood Pressure 162/65 O2 Sat by Pulse Oximetry 96 Oriented: Normal Eyes: Normal Ear: Normal Nose: Normal Throat: Normal Respiratory: Diminished Throughout Cardiovascular: Edema (BLE 1+ PITTING EDEMA ) : Normal Auscultation: Bowel Sounds: Normal Palpation: Normal Tenderness: Normal Skin: Normal Musculoskeletal: Normal Psychiatric: Normal Mood Description: Calm Affect: Normal Speech Pattern: Clear - Assessment/Plan (1) CHF (congestive heart failure) Qualifiers: Heart failure type: unspecified Heart failure chronicity: acute on chronic Qualified Code(s): I50.9 - Heart failure, unspecified Status: Acute Plan: ADMIT, LASIX 40MG IV DAILY, LOVENOX 30MG SC DAILY, ZOFRAN 4MG IV Q8H PRN, MORPINE 1-2MG IV Q4H PRN, NEB TX BID, AND HER HOME MEDICATIONS WERE RESUMED (2) Renal failure (ARF), acute on chronic Qualifiers: Acute renal failure type: unspecified Chronic kidney disease stage: unspecified stage Qualified Code(s): N17.9 - Acute kidney failure, unspecified; N18.9 - Chronic kidney disease, unspecified Status: Acute (3) Chest pain, rule out acute myocardial infarction Status: Acute Plan: SERIAL CARDIAC ENZYMES AND EKGS, CONTINUE TO MONITOR - Allergies Allergies/Adverse Reactions: Allergies Allergy/AdvReac Type Severity Reaction Status Date / Time codeine Allergy Intermediate Verified 03/02/20 14:12 meperidine [From Demerol] Allergy Verified 03/20/19 11:20
--- NOTE | 2020-04-18 22:39 | PCM.PROG ---
Progress Note - Progress Note for Day of Date of Exam: 04/17/20 - Subjective Subjective: IS BEING TREATED FOR CHF, ACUTE ON CHRONIC RENAL FAILURE, AND CHEST PAIN RULE OUT ACUTE IA. TODAY, SHE IS ALERT AND OREINTED, LYING IN BED ON MORNING ROUNDS. SHE CONTINUES WITH COMPLAINTS OF LOWER EXTREMITY SWELLING AND WEAKNESS TODAY. ON EXAMINATION, HEART IS REGULAR IN RATE AND RHYTHM. BILATERAL LUNGS ARE NOTED WITH DIMINISHED LUNG SOUNDS THROUGHOUT. ABDOMEN IS ROUND, SOFT, AND NON-TENDER WITH NORMAL BOWEL SOUNDS NOTED IN ALL QUADRANTS. BILATERAL LOWER EXTREMITIES ARE NOTED WITH TRACE EDEMA. HER VITALS THIS MORNING ARE: 97.7-67-18-92%NC-195/88. LABS WERE OBTAINED. ABNORMAL LAB VALUES INCLUDE THE FOLLOWING: SODIUM 135, BUN 32, CREATININE 2.58, GLUCOSE 139, TOTAL PROTEIN 5.3, ALBUMIN 2.1. CARDIAC ENZYMES HAVE BEEN WITHIN NORMAL LIMITS. A VENOUS DOPPLER WAS OBTAINED YESTERDAY AND IS NEGATIVE. A CHEST XRAY WAS OBTAINED THIS MORNING AND REVEALED: Progressively worsening alveolar airspace disease is noted in the bilateral lower lung zones. SHE IS CURRENTLY RECEIVING LASIX 40MG IV DAILY, LOVENOX 30MG SC DAILY, ZOFRAN 4MG IV Q8H PRN, MORPINE 1-2MG IV Q4H PRN, NEB TX BID, AND HER HOME MEDICATIONS WERE RESUMED. WE WILL HOLD HER LASIX TODAY DUE TO INCREASED RENAL FUNCTION. OTHERWISE, WE WILL FOLLOW UP WITH AM LABS AND CHEST XRAY AND CONTINUE TO MONITOR. - Past Medical Family Social History Past Med/Fam/Surg Hx: No changes since H&P Allergies: Allergies codeine Allergy (Intermediate, Verified 03/02/20 14:12) meperidine [From Demerol] Allergy (Verified 03/20/19 11:20) - Review of Systems ROS: No change since H&P - Vital Signs and I&O's Vital Signs: Temperature 97.8 F Pulse Rate [Left Radial] 61 Pulse Rate 75 Respiratory Rate 18 Blood Pressure [Left Arm] 121/55 Blood Pressure [Right Arm] 179/64 Blood Pressure 162/65 O2 Sat by Pulse Oximetry 96 Intake and Output: Intake & Output 04/16/20 04/17/20 04/18/20 04/19/20 11:59 11:59 11:59 11:59 Intake Total 378 / 378 1250 / 1250 810 / 810 520 / 520 Output Total 1000 / 1000 1850 / 1850 900 / 900 500 / 500 Balance -622 / -622 -600 / -600 -90 / -90 - Physical Exam Oriented: Normal Eyes: Normal Ear: Normal Nose: Normal Throat: Normal Respiratory: Generalized, Diminished Cardiovascular: Edema (BLE TRACE EDEMA ) : Normal Auscultation: Bowel Sounds: Normal Palpation: Normal Tenderness: Normal Skin: Normal Musculoskeletal: Normal Psychiatric: Normal Mood Description: Calm Affect: Normal Speech Pattern: Clear - Laboratory and Diagnostics Result Diagrams: 04/18/20 04:15 04/18/20 04:15 Labs: Laboratory WBC 9.8 X10^3/uL (3.6-10.0) 04/18/20 04:15 RBC 4.73 X10^6/uL (3.5-5.4) 04/18/20 04:15 Hgb 14.7 g/dL (12.0-16.0) 04/18/20 04:15 Hct 45.5 % (36.0-47.0) 04/18/20 04:15 MCV 96.1 fL (80.0-100.0) 04/18/20 04:15 MCH 31.1 pg (27.0-34.0) 04/18/20 04:15 MCHC 32.3 g/dL (33.0-35.0) L 04/18/20 04:15 RDW 18.5 % (11.6-16.5) H 04/18/20 04:15 Plt Count 333 X10^3/uL (150.0-450.0) 04/18/20 04:15 MPV 7.4 fL (7.4-11.0) 04/18/20 04:15 Neut % (Auto) 85.0 % (42.0-75.0) H 04/18/20 04:15 Lymph % (Auto) 5.6 % (21.0-51.0) L 04/18/20 04:15 [place] % (Auto) 8.5 % (0.0-13.0) 04/18/20 04:15 Eos % (Auto) 0.6 % (0.9-2.9) L 04/18/20 04:15 Baso % (Auto) 0.3 % (0.2-1.0) 04/18/20 04:15 Neut # (Auto) 8.4 x10^3/uL (2.2-4.8) H 04/18/20 04:15 Lymph # (Auto) 0.5 X10^3/uL (1.3-2.9) L 04/18/20 04:15 [place] # (Auto) 0.8 x10^3/uL (0.3-0.8) 04/18/20 04:15 Eos # (Auto) 0.1 x10^3/uL (0.0-0.2) 04/18/20 04:15 Baso # (Auto) 0.0 X10^3/uL (0.0-0.1) 04/18/20 04:15 Absolute Nucleated RBC 0.0 /100WBC 04/18/20 04:15 PT 13.3 SECONDS (11.8-14.3) 04/15/20 18:24 INR Target Range - 04/15/20 18:24 INR 1.04 (0.8-1.3) 04/15/20 18:24 Sodium 136 mmol/L (136-145) 04/18/20 04:15 Corrected Sodium TNP 04/18/20 04:15 Potassium 4.8 mmol/L (3.5-5.1) 04/18/20 04:15 Chloride 104 mmol/L (98-107) 04/18/20 04:15 Carbon Dioxide 21.4 mmol/L (21-32) 04/18/20 04:15 BUN 32 mg/dL (7-18) H 04/18/20 04:15 Creatinine 2.74 mg/dL (0.55-1.02) H 04/18/20 04:15 Est GFR (MDRD) Af Amer 21 (>60) L 04/18/20 04:15 Est GFR (MDRD) Non-Af 17 (>60) L 04/18/20 04:15 Glucose 102 mg/dL (65-99) H 04/18/20 04:15 POC Glucose (mg/dL) 159 mg/dL (65-99) H 04/18/20 19:37 Calcium 9.2 mg/dL (8.5-10.1) 04/18/20 04:15 Corrected Calcium 10.7 mg/dL (8.5-10.1) H 04/18/20 04:15 Magnesium 2.7 mg/dL (1.7-2.9) 04/16/20 04:10 Total Bilirubin 0.40 mg/dL (0.2-1.0) 04/18/20 04:15 AST 17 Units/L (15-37) 04/18/20 04:15 ALT 14 Units/L (12-78) 04/18/20 04:15 Alkaline Phosphatase 79 Units/L (46-116) 04/18/20 04:15 Creatine Kinase 37 Units/L (26-192) 04/16/20 04:10 CK-MB (CK-2) 1.3 ng/mL (0-4.0) 04/16/20 04:10 CK/CKMB % Calc 3.5 % (<4) 04/16/20 04:10 Troponin I 0.04 ng/mL (0-1.5) 04/16/20 04:10 B-Natriuretic Peptide 3610 pg/mL (0-79) H* 04/15/20 18:24 Total Protein 5.4 g/dL (6.4-8.2) L 04/18/20 04:15 Albumin 2.1 g/dL (3.4-5.0) L 04/18/20 04:15 Globulin 3.3 g/dL (2.5-4.5) 04/18/20 04:15 Albumin/Globulin Ratio 0.6 Ratio (1.1-2.1) L 04/18/20 04:15 Triglycerides 152 mg/dL (0-150) H 04/16/20 04:10 Cholesterol Cancelled 04/16/20 04:10 LDL Cholesterol, Calc Cancelled 04/16/20 04:10 HDL Cholesterol 42 mg/dL (40-60) 04/16/20 04:10 Cholesterol/HDL Ratio Cancelled 04/16/20 04:10 Specimen Type Catherized urine 04/15/20 20:52 Urine Color Yellow (YELLOW) 04/15/20 20:52 Urine Appearance Clear (CLEAR) 04/15/20 20:52 Urine pH 7.0 (5.0 - 8.0) 04/15/20 20:52 Ur Specific [place] 1.010 (1.000-1.030) 04/15/20 20:52 Urine Protein 4+ (NEGATIVE) 04/15/20 20:52 Urine Glucose (UA) 1+ (NEGATIVE) 04/15/20 20:52 Urine Ketones Negative (NEGATIVE) 04/15/20 20:52 Urine Occult Blood Negative (NEGATIVE) 04/15/20 20:52 Urine Nitrite Negative (NEGATIVE) 04/15/20 20:52 Urine Bilirubin Negative (NEGATIVE) 04/15/20 20:52 Urine Urobilinogen Normal (NORMAL) 04/15/20 20:52 Ur Leukocyte Esterase Negative (NEGATIVE) 04/15/20 20:52 Urine RBC 0-2 /HPF (0-3) 04/15/20 20:52 Urine WBC 0-2 /HPF (0-5) 04/15/20 20:52 Ur Squamous Epith Cells Few /HPF (NEGATIVE) 04/15/20 20:52 Urine Bacteria Negative /HPF (NEGATIVE) 04/15/20 20:52 Ur Culture Indicated? No/not indicated 04/15/20 20:52 - Plan (1) CHF (congestive heart failure) Status: Acute Qualifiers: Heart failure type: unspecified Heart failure chronicity: acute on chronic Qualified Code(s): I50.9 - Heart failure, unspecified Plan: HOLD LASIX TODAY, LOVENOX 30MG SC DAILY, ZOFRAN 4MG IV Q8H PRN, MORPINE 1- 2MG IV Q4H PRN, NEB TX BID, AND HER HOME MEDICATIONS WERE RESUMED (2) Renal failure (ARF), acute on chronic Status: Acute Qualifiers: Acute renal failure type: unspecified Chronic kidney disease stage: unspecified stage Qualified Code(s): N17.9 - Acute kidney failure, unspecified; N18.9 - Chronic kidney disease, unspecified Plan: HOLD LASIX (3) Chest pain, rule out acute myocardial infarction Status: Acute Plan: SERIAL CARDIAC ENZYMES AND EKGS, CONTINUE TO MONITOR
--- NOTE | 2020-04-18 22:43 | PCM.PROG ---
Progress Note - Progress Note for Day of Date of Exam: 04/18/20 - Subjective Subjective: IS BEING TREATED FOR CHF, ACUTE ON CHRONIC RENAL FAILURE, AND CHEST PAIN RULE OUT ACUTE TX. TODAY, SHE IS ALERT AND OREINTED, LYING IN BED ON MORNING ROUNDS. SHE CONTINUES WITH COMPLAINTS OF WEAKNESS TODAY. ON EXAMINATION, HEART IS REGULAR IN RATE AND RHYTHM. BILATERAL LUNGS ARE NOTED WITH DIMINISHED LUNG SOUNDS THROUGHOUT. ABDOMEN IS ROUND, SOFT, AND NON-TENDER WITH NORMAL BOWEL SOUNDS NOTED IN ALL QUADRANTS. BILATERAL LOWER EXTREMITIES ARE NOTED WITH TRACE EDEMA. HER VITALS THIS MORNING ARE: 98.8-69-18-95%-136/58. LABS WERE OBTAINED. ABNORMAL LAB VALUES INCLUDE THE FOLLOWING: BUN 32, CREATININE 2.74, GLUCOSE 102, TOTAL PROTEIN 5.4, ALBUMIN 2.1. CARDIAC ENZYMES HAVE BEEN WI THIN NORMAL LIMITS. A VENOUS DOPPLER WAS OBTAINED YESTERDAY AND IS NEGATIVE. A CHEST XRAY WAS OBTAINED THIS MORNING AND REVEALED: Cardiomegaly with pulmonary venous congestion and mild interstitial edema. Left pleural effusion obscuring portion of the left lower lobe. SHE IS CURRENTLY RECEIVING LOVENOX 30MG SC DAILY, ZOFRAN 4MG IV Q8H PRN, MORPINE 1-2MG IV Q4H PRN, NEB TX BID, AND HER HOME MEDICATIONS WERE RESUMED. WE WILL CONTINUE TO HOLD HER LASIX TODAY DUE TO INCREASED RENAL FUNCTION. OTHERWISE, WE WILL FOLLOW UP WITH AM LABS AND CHEST XRAY AND CONTINUE TO MONITOR. - Past Medical Family Social History Past Med/Fam/Surg Hx: No changes since H&P Allergies: Allergies codeine Allergy (Intermediate, Verified 03/02/20 14:12) meperidine [From Demerol] Allergy (Verified 03/20/19 11:20) - Review of Systems ROS: No change since H&P - Vital Signs and I&O's Vital Signs: Temperature 97.8 F Pulse Rate [Left Radial] 61 Pulse Rate 75 Respiratory Rate 18 Blood Pressure [Left Arm] 121/55 Blood Pressure [Right Arm] 179/64 Blood Pressure 162/65 O2 Sat by Pulse Oximetry 96 Intake and Output: Intake & Output 04/16/20 04/17/20 04/18/20 04/19/20 11:59 11:59 11:59 11:59 Intake Total 378 / 378 1250 / 1250 810 / 810 520 / 520 Output Total 1000 / 1000 1850 / 1850 900 / 900 500 / 500 Balance -622 / -622 -600 / -600 -90 / -90 - Physical Exam Oriented: Normal Eyes: Normal Ear: Normal Nose: Normal Throat: Normal Respiratory: Generalized, Diminished Cardiovascular: Edema (BLE TRACE EDEMA ) : Normal Auscultation: Bowel Sounds: Normal Tenderness: Normal Skin: Normal Musculoskeletal: Normal Psychiatric: Normal Mood Description: Calm Affect: Normal Speech Pattern: Clear - Laboratory and Diagnostics Result Diagrams: 04/18/20 04:15 04/18/20 04:15 Labs: Laboratory WBC 9.8 X10^3/uL (3.6-10.0) 04/18/20 04:15 RBC 4.73 X10^6/uL (3.5-5.4) 04/18/20 04:15 Hgb 14.7 g/dL (12.0-16.0) 04/18/20 04:15 Hct 45.5 % (36.0-47.0) 04/18/20 04:15 MCV 96.1 fL (80.0-100.0) 04/18/20 04:15 MCH 31.1 pg (27.0-34.0) 04/18/20 04:15 MCHC 32.3 g/dL (33.0-35.0) L 04/18/20 04:15 RDW 18.5 % (11.6-16.5) H 04/18/20 04:15 Plt Count 333 X10^3/uL (150.0-450.0) 04/18/20 04:15 MPV 7.4 fL (7.4-11.0) 04/18/20 04:15 Neut % (Auto) 85.0 % (42.0-75.0) H 04/18/20 04:15 Lymph % (Auto) 5.6 % (21.0-51.0) L 04/18/20 04:15 [place] % (Auto) 8.5 % (0.0-13.0) 04/18/20 04:15 Eos % (Auto) 0.6 % (0.9-2.9) L 04/18/20 04:15 Baso % (Auto) 0.3 % (0.2-1.0) 04/18/20 04:15 Neut # (Auto) 8.4 x10^3/uL (2.2-4.8) H 04/18/20 04:15 Lymph # (Auto) 0.5 X10^3/uL (1.3-2.9) L 04/18/20 04:15 [place] # (Auto) 0.8 x10^3/uL (0.3-0.8) 04/18/20 04:15 Eos # (Auto) 0.1 x10^3/uL (0.0-0.2) 04/18/20 04:15 Baso # (Auto) 0.0 X10^3/uL (0.0-0.1) 04/18/20 04:15 Absolute Nucleated RBC 0.0 /100WBC 04/18/20 04:15 PT 13.3 SECONDS (11.8-14.3) 04/15/20 18:24 INR Target Range - 04/15/20 18:24 INR 1.04 (0.8-1.3) 04/15/20 18:24 Sodium 136 mmol/L (136-145) 04/18/20 04:15 Corrected Sodium TNP 04/18/20 04:15 Potassium 4.8 mmol/L (3.5-5.1) 04/18/20 04:15 Chloride 104 mmol/L (98-107) 04/18/20 04:15 Carbon Dioxide 21.4 mmol/L (21-32) 04/18/20 04:15 BUN 32 mg/dL (7-18) H 04/18/20 04:15 Creatinine 2.74 mg/dL (0.55-1.02) H 04/18/20 04:15 Est GFR (MDRD) Af Amer 21 (>60) L 04/18/20 04:15 Est GFR (MDRD) Non-Af 17 (>60) L 04/18/20 04:15 Glucose 102 mg/dL (65-99) H 04/18/20 04:15 POC Glucose (mg/dL) 159 mg/dL (65-99) H 04/18/20 19:37 Calcium 9.2 mg/dL (8.5-10.1) 04/18/20 04:15 Corrected Calcium 10.7 mg/dL (8.5-10.1) H 04/18/20 04:15 Magnesium 2.7 mg/dL (1.7-2.9) 04/16/20 04:10 Total Bilirubin 0.40 mg/dL (0.2-1.0) 04/18/20 04:15 AST 17 Units/L (15-37) 04/18/20 04:15 ALT 14 Units/L (12-78) 04/18/20 04:15 Alkaline Phosphatase 79 Units/L (46-116) 04/18/20 04:15 Creatine Kinase 37 Units/L (26-192) 04/16/20 04:10 CK-MB (CK-2) 1.3 ng/mL (0-4.0) 04/16/20 04:10 CK/CKMB % Calc 3.5 % (<4) 04/16/20 04:10 Troponin I 0.04 ng/mL (0-1.5) 04/16/20 04:10 B-Natriuretic Peptide 3610 pg/mL (0-79) H* 04/15/20 18:24 Total Protein 5.4 g/dL (6.4-8.2) L 04/18/20 04:15 Albumin 2.1 g/dL (3.4-5.0) L 04/18/20 04:15 Globulin 3.3 g/dL (2.5-4.5) 04/18/20 04:15 Albumin/Globulin Ratio 0.6 Ratio (1.1-2.1) L 04/18/20 04:15 Triglycerides 152 mg/dL (0-150) H 04/16/20 04:10 Cholesterol Cancelled 04/16/20 04:10 LDL Cholesterol, Calc Cancelled 04/16/20 04:10 HDL Cholesterol 42 mg/dL (40-60) 04/16/20 04:10 Cholesterol/HDL Ratio Cancelled 04/16/20 04:10 Specimen Type Catherized urine 04/15/20 20:52 Urine Color Yellow (YELLOW) 04/15/20 20:52 Urine Appearance Clear (CLEAR) 04/15/20 20:52 Urine pH 7.0 (5.0 - 8.0) 04/15/20 20:52 Ur Specific [place] 1.010 (1.000-1.030) 04/15/20 20:52 Urine Protein 4+ (NEGATIVE) 04/15/20 20:52 Urine Glucose (UA) 1+ (NEGATIVE) 04/15/20 20:52 Urine Ketones Negative (NEGATIVE) 04/15/20 20:52 Urine Occult Blood Negative (NEGATIVE) 04/15/20 20:52 Urine Nitrite Negative (NEGATIVE) 04/15/20 20:52 Urine Bilirubin Negative (NEGATIVE) 04/15/20 20:52 Urine Urobilinogen Normal (NORMAL) 04/15/20 20:52 Ur Leukocyte Esterase Negative (NEGATIVE) 04/15/20 20:52 Urine RBC 0-2 /HPF (0-3) 04/15/20 20:52 Urine WBC 0-2 /HPF (0-5) 04/15/20 20:52 Ur Squamous Epith Cells Few /HPF (NEGATIVE) 04/15/20 20:52 Urine Bacteria Negative /HPF (NEGATIVE) 04/15/20 20:52 Ur Culture Indicated? No/not indicated 04/15/20 20:52 - Plan (1) CHF (congestive heart failure) Status: Acute Qualifiers: Heart failure type: unspecified Heart failure chronicity: acute on chronic Qualified Code(s): I50.9 - Heart failure, unspecified Plan: HOLD LASIX TODAY, LOVENOX 30MG SC DAILY, ZOFRAN 4MG IV Q8H PRN, MORPINE 1- 2MG IV Q4H PRN, NEB TX BID, AND HER HOME MEDICATIONS WERE RESUMED (2) Renal failure (ARF), acute on chronic Status: Acute Qualifiers: Acute renal failure type: unspecified Chronic kidney disease stage: unspecified stage Qualified Code(s): N17.9 - Acute kidney failure, unspecified; N18.9 - Chronic kidney disease, unspecified Plan: HOLD LASIX (3) Chest pain, rule out acute myocardial infarction Status: Acute Plan: SERIAL CARDIAC ENZYMES AND EKGS, CONTINUE TO MONITOR
[2020-04-19] MEDS: MORPHINE SULFATE INJ 2 MG INJ IVP PRN ×3 (00:15→21:53)
[2020-04-19] MEDS: NITRODUR PATCH 0.4 MG/HR TD SCH (00:51)
[2020-04-19] MEDS: APRESOLINE TAB 25 MG PO SCH ×3 (05:43→21:47)
[2020-04-19] MEDS: PROVENTIL NEB TX 0.083% 2.5MG/ 3ML NEB SCH ×3 (05:45→22:47)
[2020-04-19 06:14] LABS: BASOPHILS % (AUTO) 0.5 % (0.2-1.0); EOSINOPHILS # (AUTO) 0.1 x10^3/uL (0.0-0.2); EOSINOPHILS % (AUTO) 1.1 % (0.9-2.9); HEMATOCRIT 42.3 % (36.0-47.0); HEMOGLOBIN 13.7 g/dL (12.0-16.0); LYMPHOCYTES # (AUTO) 0.9 X10^3/uL (1.3-2.9); LYMPHOCYTES % (AUTO) 9.4 % (21.0-51.0); MEAN CORPUSCULAR HEMOGLOBIN 31.1 pg (27.0-34.0); MEAN CORPUSCULAR HGB CONC 32.4 g/dL (33.0-35.0); MEAN CORPUSCULAR VOLUME 95.8 fL (80.0-100.0); MEAN PLATELET VOLUME 7.6 fL (7.4-11.0); MONOCYTES # (AUTO) 1.1 x10^3/uL (0.3-0.8); MONOCYTES % (AUTO) 11.4 % (0.0-13.0); NEUTROPHILS # (AUTO) 7.1 x10^3/uL (2.2-4.8); NEUTROPHILS % (AUTO) 77.6 % (42.0-75.0); PLATELET COUNT 294 X10^3/uL (150.0-450.0); RED BLOOD COUNT 4.41 X10^6/uL (3.5-5.4); RED CELL DISTRIBUTION WIDTH 18.6 % (11.6-16.5); WHITE BLOOD COUNT 9.2 X10^3/uL (3.6-10.0)
[2020-04-19 06:27] LABS: ALANINE AMINOTRANSFERASE 13 Units/L (12-78); ALBUMIN 1.9 g/dL (3.4-5.0); ALKALINE PHOSPHATASE 72 Units/L (46-116); ASPARTATE AMINO TRANSFERASE 15 Units/L (15-37); BLOOD UREA NITROGEN 34 mg/dL (7-18); CALCIUM 8.7 mg/dL (8.5-10.1); CARBON DIOXIDE 23.3 mmol/L (21-32); CHLORIDE 103 mmol/L (98-107); COR CA(FOR HYPOALB) 10.4 mg/dL (8.5-10.1); CREATININE 3.03 mg/dL (0.55-1.02); SODIUM 134 mmol/L (136-145); TOTAL PROTEIN 5.1 g/dL (6.4-8.2); eGFR NON BLACK RACES 16 (>60)
[2020-04-19] MEDS: PULMICORT NEB TX 0.5 MG NEB SCH ×2 (09:00→22:47)
[2020-04-19] MEDS: NIASPAN ER TAB 500 MG PO SCH (10:11)
[2020-04-19] MEDS: LOVENOX INJ 30 MG SYR SC SCH (10:11)
[2020-04-19] MEDS: PROCARDIA XL PO SCH (10:12)
[2020-04-19] MEDS: COREG TAB 12.5 MG PO SCH ×2 (10:12→20:55)
[2020-04-19] MEDS: PROTONIX TAB 40 MG PO SCH (10:12)
[2020-04-19] MEDS: COZAAR PO SCH (10:12)
[2020-04-19] MEDS: ASPIRIN PO SCH (10:12)
[2020-04-19] MEDS: NS 1000 ML 1,000 ML IV SCH (10:15)
[2020-04-20] MEDS: NS 1000 ML 1,000 ML IV SCH ×2 (00:55→18:02)
[2020-04-20] MEDS: NITRODUR PATCH 0.4 MG/HR TD SCH (01:50)
[2020-04-20] MEDS: MORPHINE SULFATE INJ 2 MG INJ IVP PRN (02:51)
[2020-04-20] MEDS: APRESOLINE TAB 25 MG PO SCH ×3 (05:48→22:00)
--- NOTE | 2020-04-20 05:52 | RAD ---
STUDY: CHEST, 1 VIEWCOMPARISON: April 18, 2020HISTORY: SOB; RENAL FAILUREFINDINGS:Persistent small right pleural effusion is seen which appears slightly worsened when compared to the prior study. There is worsening alveolar airspace disease in the bilateral mid and lower lung zones. The cardiomediastinal contour is stable. No gross pneumothorax is seen.IMPRESSION:Slight progressively worsening right-sided pleural effusion is seen with overall worsening alveolar airspace disease in the bilateral mid and lower lung zones.Electronically signed by: Mike Light (Apr 20, 2020 05:51:59)
[2020-04-20] MEDS: PROVENTIL NEB TX 0.083% 2.5MG/ 3ML NEB SCH ×3 (06:08→20:30)
[2020-04-20 06:22] LABS: BASOPHILS % (AUTO) 0.6 % (0.2-1.0); EOSINOPHILS # (AUTO) 0.1 x10^3/uL (0.0-0.2); HEMATOCRIT 42.6 % (36.0-47.0); HEMOGLOBIN 13.8 g/dL (12.0-16.0); LYMPHOCYTES % (AUTO) 12.1 % (21.0-51.0); MEAN CORPUSCULAR HEMOGLOBIN 31.2 pg (27.0-34.0); MEAN CORPUSCULAR HGB CONC 32.4 g/dL (33.0-35.0); MEAN CORPUSCULAR VOLUME 96.3 fL (80.0-100.0); MEAN PLATELET VOLUME 7.5 fL (7.4-11.0); MONOCYTES # (AUTO) 0.9 x10^3/uL (0.3-0.8); MONOCYTES % (AUTO) 11.3 % (0.0-13.0); NEUTROPHILS # (AUTO) 6.1 x10^3/uL (2.2-4.8); PLATELET COUNT 308 X10^3/uL (150.0-450.0); RED BLOOD COUNT 4.42 X10^6/uL (3.5-5.4); RED CELL DISTRIBUTION WIDTH 18.4 % (11.6-16.5); WHITE BLOOD COUNT 8.1 X10^3/uL (3.6-10.0)
[2020-04-20 07:07] LABS: ALANINE AMINOTRANSFERASE 12 Units/L (12-78); ALBUMIN 1.8 g/dL (3.4-5.0); ALKALINE PHOSPHATASE 77 Units/L (46-116); ASPARTATE AMINO TRANSFERASE 16 Units/L (15-37); BLOOD UREA NITROGEN 35 mg/dL (7-18); CALCIUM 8.6 mg/dL (8.5-10.1); CHLORIDE 104 mmol/L (98-107); COR CA(FOR HYPOALB) 10.4 mg/dL (8.5-10.1); CREATININE 3.08 mg/dL (0.55-1.02); SODIUM 134 mmol/L (136-145); TOTAL PROTEIN 5.2 g/dL (6.4-8.2); eGFR NON BLACK RACES 15 (>60)
[2020-04-20] MEDS: PULMICORT NEB TX 0.5 MG NEB SCH ×2 (09:08→20:30)
[2020-04-20] MEDS: ASPIRIN PO SCH (10:05)
[2020-04-20] MEDS: PROTONIX TAB 40 MG PO SCH (10:06)
[2020-04-20] MEDS: COREG TAB 12.5 MG PO SCH ×2 (10:06→20:43)
[2020-04-20] MEDS: COZAAR PO SCH (10:06)
[2020-04-20] MEDS: NIASPAN ER TAB 500 MG PO SCH (10:06)
[2020-04-20] MEDS: LOVENOX INJ 30 MG SYR SC SCH (10:07)
[2020-04-20] MEDS: PROCARDIA XL PO SCH (10:07)
[2020-04-20] MEDS: ALBUMIN HUMAN 25%- 100 ML 100 ML IV SCH (10:07)
--- NOTE | 2020-04-20 12:54 | PCM.PROG ---
Progress Note - Progress Note for Day of Date of Exam: 04/19/20 - Subjective Subjective: IS BEING TREATED FOR CHF, ACUTE ON CHRONIC RENAL FAILURE, AND CHEST PAIN RULE OUT ACUTE HI. TODAY, SHE IS ALERT AND OREINTED, LYING IN BED ON MORNING ROUNDS. SHE CONTINUES WITH COMPLAINTS OF WEAKNESS TODAY AND SHORTNESS OF BREATH. ON EXAMINATION, HEART IS REGULAR IN RATE AND RHYTHM. BILATERAL LUNGS ARE NOTED WITH DIMINISHED LUNG SOUNDS THROUGHOUT. ABDOMEN IS ROUND, SOFT, AND NON-TENDER WITH NORMAL BOWEL SOUNDS NOTED IN ALL QUADRANTS. BILATERAL LOWER EXTREMITIES ARE NOTED WITH TRACE EDEMA. HER VITALS THIS MORNING ARE: 97.6-72-18-94%NC-134/60. LABS WERE OBTAINED. ABNORMAL LAB VALUES INCLUDE THE FOLLOWING: SODIUM 134, BUN 34, CREATININE 3.03, TOTAL PROTEIN 5.1, ALBUMIN 1.9. CARDIAC ENZYMES HAVE BEEN WITHIN NORMAL LIMITS. SHE IS CURRENTLY RECEIVING LOVENOX 30MG SC DAILY, ZOFRAN 4MG IV Q8H PRN, MORPINE 1-2MG IV Q4H PRN, NEB TX BID, AND HER HOME MEDICATIONS WERE RESUMED. WE WILL CONTINUE TO HOLD HER LASIX TODAY DUE TO INCREASED RENAL FUNCTION. WE WILL START NORMAL SALINE AT 75 ML/HR. OTHERWISE, WE WILL FOLLOW UP WITH AM LABS AND CHEST XRAY AND CONTINUE TO MONITOR. - Past Medical Family Social History Past Med/Fam/Surg Hx: No changes since H&P Allergies: Allergies codeine Allergy (Intermediate, Verified 03/02/20 14:12) meperidine [From Demerol] Allergy (Verified 03/20/19 11:20) - Review of Systems ROS: No change since H&P - Vital Signs and I&O's Vital Signs: Temperature 98.2 F Pulse Rate [Left Radial] 70 Pulse Rate 70 Respiratory Rate 18 Blood Pressure [Left Arm] 133/63 Blood Pressure [Right Arm] 179/64 Blood Pressure 162/65 O2 Sat by Pulse Oximetry 95 Intake and Output: Intake & Output 04/18/20 04/19/20 04/20/20 04/21/20 11:59 11:59 11:59 11:59 Intake Total 810 / 810 1700 / 1700 1320 / 1320 Output Total 900 / 900 1100 / 1100 200 / 200 Balance -90 / -90 600 / 600 1120 / 1120 - Physical Exam Oriented: Normal Eyes: Normal Ear: Normal Nose: Normal Throat: Normal Respiratory: Generalized, Diminished Cardiovascular: Edema (BLE TRACE EDEMA ) : Normal Auscultation: Bowel Sounds: Normal Palpation: Normal Tenderness: Normal Skin: Normal Musculoskeletal: Normal Psychiatric: Normal Mood Description: Calm Affect: Normal Speech Pattern: Clear, Appropriate - Laboratory and Diagnostics Result Diagrams: 04/20/20 05:45 04/20/20 05:45 Labs: Laboratory WBC 8.1 X10^3/uL (3.6-10.0) 04/20/20 05:45 RBC 4.42 X10^6/uL (3.5-5.4) 04/20/20 05:45 Hgb 13.8 g/dL (12.0-16.0) 04/20/20 05:45 Hct 42.6 % (36.0-47.0) 04/20/20 05:45 MCV 96.3 fL (80.0-100.0) 04/20/20 05:45 MCH 31.2 pg (27.0-34.0) 04/20/20 05:45 MCHC 32.4 g/dL (33.0-35.0) L 04/20/20 05:45 RDW 18.4 % (11.6-16.5) H 04/20/20 05:45 Plt Count 308 X10^3/uL (150.0-450.0) 04/20/20 05:45 MPV 7.5 fL (7.4-11.0) 04/20/20 05:45 Neut % (Auto) 75.0 % (42.0-75.0) 04/20/20 05:45 Lymph % (Auto) 12.1 % (21.0-51.0) L 04/20/20 05:45 [place] % (Auto) 11.3 % (0.0-13.0) 04/20/20 05:45 Eos % (Auto) 1.0 % (0.9-2.9) 04/20/20 05:45 Baso % (Auto) 0.6 % (0.2-1.0) 04/20/20 05:45 Neut # (Auto) 6.1 x10^3/uL (2.2-4.8) H 04/20/20 05:45 Lymph # (Auto) 1.0 X10^3/uL (1.3-2.9) L 04/20/20 05:45 [place] # (Auto) 0.9 x10^3/uL (0.3-0.8) H 04/20/20 05:45 Eos # (Auto) 0.1 x10^3/uL (0.0-0.2) 04/20/20 05:45 Baso # (Auto) 0.0 X10^3/uL (0.0-0.1) 04/20/20 05:45 Absolute Nucleated RBC 0.0 /100WBC 04/20/20 05:45 PT 13.3 SECONDS (11.8-14.3) 04/15/20 18:24 INR Target Range - 04/15/20 18:24 INR 1.04 (0.8-1.3) 04/15/20 18:24 Sodium 134 mmol/L (136-145) L 04/20/20 05:45 Corrected Sodium TNP 04/20/20 05:45 Potassium 4.6 mmol/L (3.5-5.1) 04/20/20 05:45 Chloride 104 mmol/L (98-107) 04/20/20 05:45 Carbon Dioxide 20.0 mmol/L (21-32) L 04/20/20 05:45 BUN 35 mg/dL (7-18) H 04/20/20 05:45 Creatinine 3.08 mg/dL (0.55-1.02) H 04/20/20 05:45 Est GFR (MDRD) Af Amer 18 (>60) L 04/20/20 05:45 Est GFR (MDRD) Non-Af 15 (>60) L 04/20/20 05:45 Glucose 100 mg/dL (65-99) H 04/20/20 05:45 POC Glucose (mg/dL) 79 mg/dL (65-99) 04/20/20 12:13 Calcium 8.6 mg/dL (8.5-10.1) 04/20/20 05:45 Corrected Calcium 10.4 mg/dL (8.5-10.1) H 04/20/20 05:45 Magnesium 2.7 mg/dL (1.7-2.9) 04/16/20 04:10 Total Bilirubin 0.20 mg/dL (0.2-1.0) 04/20/20 05:45 AST 16 Units/L (15-37) 04/20/20 05:45 ALT 12 Units/L (12-78) 04/20/20 05:45 Alkaline Phosphatase 77 Units/L (46-116) 04/20/20 05:45 Creatine Kinase 37 Units/L (26-192) 04/16/20 04:10 CK-MB (CK-2) 1.3 ng/mL (0-4.0) 04/16/20 04:10 CK/CKMB % Calc 3.5 % (<4) 04/16/20 04:10 Troponin I 0.04 ng/mL (0-1.5) 04/16/20 04:10 B-Natriuretic Peptide 3610 pg/mL (0-79) H* 04/15/20 18:24 Total Protein 5.2 g/dL (6.4-8.2) L 04/20/20 05:45 Albumin 1.8 g/dL (3.4-5.0) L 04/20/20 05:45 Globulin 3.4 g/dL (2.5-4.5) 04/20/20 05:45 Albumin/Globulin Ratio 0.5 Ratio (1.1-2.1) L 04/20/20 05:45 Triglycerides 152 mg/dL (0-150) H 04/16/20 04:10 Cholesterol Cancelled 04/16/20 04:10 LDL Cholesterol, Calc Cancelled 04/16/20 04:10 HDL Cholesterol 42 mg/dL (40-60) 04/16/20 04:10 Cholesterol/HDL Ratio Cancelled 04/16/20 04:10 Specimen Type Catherized urine 04/15/20 20:52 Urine Color Yellow (YELLOW) 04/15/20 20:52 Urine Appearance Clear (CLEAR) 04/15/20 20:52 Urine pH 7.0 (5.0 - 8.0) 04/15/20 20:52 Ur Specific [place] 1.010 (1.000-1.030) 04/15/20 20:52 Urine Protein 4+ (NEGATIVE) 04/15/20 20:52 Urine Glucose (UA) 1+ (NEGATIVE) 04/15/20 20:52 Urine Ketones Negative (NEGATIVE) 04/15/20 20:52 Urine Occult Blood Negative (NEGATIVE) 04/15/20 20:52 Urine Nitrite Negative (NEGATIVE) 04/15/20 20:52 Urine Bilirubin Negative (NEGATIVE) 04/15/20 20:52 Urine Urobilinogen Normal (NORMAL) 04/15/20 20:52 Ur Leukocyte Esterase Negative (NEGATIVE) 04/15/20 20:52 Urine RBC 0-2 /HPF (0-3) 04/15/20 20:52 Urine WBC 0-2 /HPF (0-5) 04/15/20 20:52 Ur Squamous Epith Cells Few /HPF (NEGATIVE) 04/15/20 20:52 Urine Bacteria Negative /HPF (NEGATIVE) 04/15/20 20:52 Ur Culture Indicated? No/not indicated 04/15/20 20:52 - Plan (1) CHF (congestive heart failure) Status: Acute Qualifiers: Heart failure type: unspecified Heart failure chronicity: acute on chronic Qualified Code(s): I50.9 - Heart failure, unspecified Plan: HOLD LASIX TODAY, LOVENOX 30MG SC DAILY, ZOFRAN 4MG IV Q8H PRN, MORPINE 1- 2MG IV Q4H PRN, NEB TX BID, AND HER HOME MEDICATIONS WERE RESUMED (2) Renal failure (ARF), acute on chronic Status: Acute Qualifiers: Acute renal failure type: unspecified Chronic kidney disease stage: unspecified stage Qualified Code(s): N17.9 - Acute kidney failure, unspecified; N18.9 - Chronic kidney disease, unspecified Plan: NORMAL SALINE AT 75 ML/HR, HOLD LASIX (3) Chest pain, rule out acute myocardial infarction Status: Acute Plan: SERIAL CARDIAC ENZYMES AND EKGS, CONTINUE TO MONITOR
[2020-04-21] MEDS: NITRODUR PATCH 0.4 MG/HR TD SCH (02:42)
[2020-04-21] MEDS ORDERED: TYLENOL 325 MG TAB PO PRN (04:09)
[2020-04-21] MEDS ORDERED: TYLENOL 325 MG TAB PO ONE (04:32)
[2020-04-21] MEDS: NS 1000 ML 1,000 ML IV SCH ×2 (04:43→22:05)
[2020-04-21] MEDS: APRESOLINE TAB 25 MG PO SCH ×3 (05:49→22:05)
[2020-04-21] MEDS: PROVENTIL NEB TX 0.083% 2.5MG/ 3ML NEB SCH ×3 (06:05→21:30)
--- NOTE | 2020-04-21 06:18 | RAD ---
CHEST, 1 VIEWHISTORY: SOBStudy: Single view of the chest.Comparison:NoneFindings:The cardiomediastinal silhouette is normal. No change in the appearance of bilateral effusions and basilar atelectasis. Osseous structures demonstrate no acute abnormality.IMPRESSION:1. No change from prior.Electronically signed by: NELLIE GUAJARDO (Apr 21, 2020 06:16:54)
[2020-04-21 06:37] LABS: BASOPHILS % (AUTO) 0.6 % (0.2-1.0); EOSINOPHILS # (AUTO) 0.1 x10^3/uL (0.0-0.2); EOSINOPHILS % (AUTO) 1.7 % (0.9-2.9); HEMATOCRIT 41.8 % (36.0-47.0); HEMOGLOBIN 13.3 g/dL (12.0-16.0); LYMPHOCYTES % (AUTO) 16.2 % (21.0-51.0); MEAN CORPUSCULAR HEMOGLOBIN 30.6 pg (27.0-34.0); MEAN CORPUSCULAR HGB CONC 31.8 g/dL (33.0-35.0); MEAN CORPUSCULAR VOLUME 96.4 fL (80.0-100.0); MEAN PLATELET VOLUME 7.6 fL (7.4-11.0); MONOCYTES # (AUTO) 0.8 x10^3/uL (0.3-0.8); NEUTROPHILS # (AUTO) 4.1 x10^3/uL (2.2-4.8); NEUTROPHILS % (AUTO) 68.5 % (42.0-75.0); PLATELET COUNT 289 X10^3/uL (150.0-450.0); RED BLOOD COUNT 4.33 X10^6/uL (3.5-5.4); RED CELL DISTRIBUTION WIDTH 17.9 % (11.6-16.5)
[2020-04-21 06:57] LABS: ALANINE AMINOTRANSFERASE 14 Units/L (12-78); ALBUMIN 2.2 g/dL (3.4-5.0); ALKALINE PHOSPHATASE 64 Units/L (46-116); ASPARTATE AMINO TRANSFERASE 15 Units/L (15-37); BLOOD UREA NITROGEN 33 mg/dL (7-18); CALCIUM 8.7 mg/dL (8.5-10.1); CARBON DIOXIDE 20.7 mmol/L (21-32); CHLORIDE 103 mmol/L (98-107); COR CA(FOR HYPOALB) 10.1 mg/dL (8.5-10.1); CREATININE 3.13 mg/dL (0.55-1.02); SODIUM 134 mmol/L (136-145); TOTAL PROTEIN 5.2 g/dL (6.4-8.2); eGFR NON BLACK RACES 15 (>60)
[2020-04-21] MEDS: ASPIRIN PO SCH (10:44)
[2020-04-21] MEDS: LOVENOX INJ 30 MG SYR SC SCH (10:44)
[2020-04-21] MEDS: COREG TAB 12.5 MG PO SCH ×2 (10:44→20:49)
[2020-04-21] MEDS: COZAAR PO SCH (10:44)
[2020-04-21] MEDS: PROTONIX TAB 40 MG PO SCH (10:44)
[2020-04-21] MEDS: NIASPAN ER TAB 500 MG PO SCH (10:46)
[2020-04-21] MEDS: PROCARDIA XL PO SCH (10:46)
[2020-04-21] MEDS: ALBUMIN HUMAN 25%- 100 ML 100 ML IV SCH (13:38)
[2020-04-21] MEDS: PULMICORT NEB TX 0.5 MG NEB SCH ×3 (13:41→21:30)
[2020-04-21] MEDS: LASIX IVP SCH ×2 (13:45→17:28)
[2020-04-22] MEDS: APRESOLINE TAB 25 MG PO SCH ×3 (05:59→21:16)
[2020-04-22] MEDS: PROVENTIL NEB TX 0.083% 2.5MG/ 3ML NEB SCH ×3 (06:00→21:20)
[2020-04-22 06:13] LABS: BASOPHILS % (AUTO) 0.7 % (0.2-1.0); EOSINOPHILS # (AUTO) 0.1 x10^3/uL (0.0-0.2); EOSINOPHILS % (AUTO) 2.1 % (0.9-2.9); HEMATOCRIT 42.6 % (36.0-47.0); HEMOGLOBIN 13.7 g/dL (12.0-16.0); LYMPHOCYTES # (AUTO) 1.1 X10^3/uL (1.3-2.9); LYMPHOCYTES % (AUTO) 16.6 % (21.0-51.0); MEAN CORPUSCULAR HEMOGLOBIN 30.8 pg (27.0-34.0); MEAN CORPUSCULAR HGB CONC 32.1 g/dL (33.0-35.0); MEAN PLATELET VOLUME 7.9 fL (7.4-11.0); MONOCYTES # (AUTO) 0.8 x10^3/uL (0.3-0.8); MONOCYTES % (AUTO) 11.6 % (0.0-13.0); NEUTROPHILS # (AUTO) 4.6 x10^3/uL (2.2-4.8); PLATELET COUNT 310 X10^3/uL (150.0-450.0); RED BLOOD COUNT 4.44 X10^6/uL (3.5-5.4); RED CELL DISTRIBUTION WIDTH 17.4 % (11.6-16.5); WHITE BLOOD COUNT 6.7 X10^3/uL (3.6-10.0)
[2020-04-22 06:28] LABS: ALANINE AMINOTRANSFERASE 10 Units/L (12-78); ALBUMIN 2.5 g/dL (3.4-5.0); ALKALINE PHOSPHATASE 63 Units/L (46-116); ASPARTATE AMINO TRANSFERASE 13 Units/L (15-37); BLOOD UREA NITROGEN 31 mg/dL (7-18); CALCIUM 8.8 mg/dL (8.5-10.1); CARBON DIOXIDE 19.4 mmol/L (21-32); CHLORIDE 103 mmol/L (98-107); CREATININE 3.15 mg/dL (0.55-1.02); SODIUM 133 mmol/L (136-145); TOTAL PROTEIN 5.5 g/dL (6.4-8.2); eGFR NON BLACK RACES 15 (>60)
[2020-04-22] MEDS ORDERED: LASIX IVP ONE (09:14)
[2020-04-22] MEDS: LASIX IVP SCH ×2 (09:18→16:02)
[2020-04-22] MEDS: LOVENOX INJ 30 MG SYR SC SCH (09:18)
[2020-04-22] MEDS: COZAAR PO SCH (09:19)
[2020-04-22] MEDS: PROTONIX TAB 40 MG PO SCH (09:19)
[2020-04-22] MEDS: NIASPAN ER TAB 500 MG PO SCH (09:19)
[2020-04-22] MEDS: COREG TAB 12.5 MG PO SCH ×2 (09:19→21:15)
[2020-04-22] MEDS: ASPIRIN PO SCH (09:19)
[2020-04-22] MEDS: NITRODUR PATCH 0.4 MG/HR TD SCH (09:27)
[2020-04-22] MEDS: PULMICORT NEB TX 0.5 MG NEB SCH ×2 (09:55→21:20)
--- NOTE | 2020-04-22 10:46 | RAD ---
CHEST, 1 VIEWHISTORY: SOBStudy: PA and lateral views of the chest.Comparison:April 21, 2020Findings:The cardiomediastinal silhouette is normal.Pulmonary edema and small bilateral effusions, not significantly changed from prior. Osseous structures demonstrate no acute abnormality.IMPRESSION:1. No significant change in pulmonary edema and bilateral pleural effusions.Electronically signed by: NELLIE GUAJARDO (Apr 22, 2020 10:44:49)
[2020-04-22] MEDS: PROCARDIA XL PO SCH (11:37)
[2020-04-22] MEDS: NS 1000 ML 1,000 ML IV SCH ×2 (11:43→16:24)
--- NOTE | 2020-04-22 16:21 | PCM.PROG ---
Progress Note - Progress Note for Day of Date of Exam: 04/22/20 - Subjective Subjective: Mrs. Warren is an 84-year-old white female who is a patient of Dr. Joe admitted with acute on chronic renal failure, congestive heart failure exacerbation, and chest pain. Rule out myocardial infarction. She was admitted via the ER on 04/15/20. The patient did have serial cardiac enzymes at that time with stable Troponin. She was noted to have an elevated BNP, as well as elevated BUN and creatine. The patient is currently on gentle IV hydration with normal saline at 75 mL an hour. The patient is also on IV Lasix 40 mg two times a day and IV albumin. She is on multiple antihypertensive medications including Losartan, hydralazine, and Carvedilol. The patient is on aspirin therapy, PPI therapy, as well as respiratory therapy, and supplemental oxygen. This morning, the patients blood pressure was 123/60. The patient was saturating 98% on room air. She was encouraged. The patient was encouraged to utilize her nasal cannula due to her diagnosis of congestive heart failure. The patients labs this morning revealed a sodium of 133. She is on some IV Lasix. Her creatine was at 3.15 and we did decrease the patients furosemide 40 mg IV daily to 20 mg two times a day, and decreased normal saline infusion rate and stopped albumin. Encouraged p.o. intake for oral hydration. Patient has persistent bilateral effusion consistent with one day prior. She is denying any chest pain at this time. The patient is anxious complaining of some depression from being hosp italized. She has been afebrile. The patient denies any nausea or vomiting this morning. She did tolerate p.o. intake for breakfast. - Past Medical Family Social History Past Med/Fam/Surg Hx: No changes since H&P Allergies: Allergies codeine Allergy (Intermediate, Verified 03/02/20 14:12) meperidine [From Demerol] Allergy (Verified 03/20/19 11:20) - Review of Systems ROS: No change since H&P - Vital Signs and I&O's Vital Signs: Temperature 97.8 F Pulse Rate [Left Radial] 79 Pulse Rate 81 Respiratory Rate 18 Blood Pressure [Left Arm] 123/60 Blood Pressure [Right Arm] 179/64 Blood Pressure 162/65 O2 Sat by Pulse Oximetry 96 Intake and Output: Intake & Output 0704/21/20 04/22/20 04/23/20 11:59 11:59 11:59 11:59 Intake Total 1320 / 1320 1280 / 1280 2069 350 / 350 Output Total 200 / 200 Balance 1120 / 1120 1280 / 1280 2069 350 / 350 - Physical Exam Oriented: Normal Eyes: Normal Ear: Normal Nose: Normal Throat: Normal Respiratory: Generalized, Diminished Cardiovascular: Edema (BLE TRACE EDEMA ) : Normal Auscultation: Bowel Sounds: Normal Tenderness: Normal Skin: Normal Musculoskeletal: Normal Psychiatric: Normal Mood Description: Calm Affect: Normal Speech Pattern: Clear, Appropriate - Laboratory and Diagnostics Result Diagrams: 04/22/20 05:09 04/22/20 05:09 Labs: Laboratory WBC 6.7 X10^3/uL (3.6-10.0) 04/22/20 05:09 RBC 4.44 X10^6/uL (3.5-5.4) 04/22/20 05:09 Hgb 13.7 g/dL (12.0-16.0) 04/22/20 05:09 Hct 42.6 % (36.0-47.0) 04/22/20 05:09 MCV 96.0 fL (80.0-100.0) 04/22/20 05:09 MCH 30.8 pg (27.0-34.0) 04/22/20 05:09 MCHC 32.1 g/dL (33.0-35.0) L 04/22/20 05:09 RDW 17.4 % (11.6-16.5) H 04/22/20 05:09 Plt Count 310 X10^3/uL (150.0-450.0) 04/22/20 05:09 MPV 7.9 fL (7.4-11.0) 04/22/20 05:09 Neut % (Auto) 69.0 % (42.0-75.0) 04/22/20 05:09 Lymph % (Auto) 16.6 % (21.0-51.0) L 04/22/20 05:09 [place] % (Auto) 11.6 % (0.0-13.0) 04/22/20 05:09 Eos % (Auto) 2.1 % (0.9-2.9) 04/22/20 05:09 Baso % (Auto) 0.7 % (0.2-1.0) 04/22/20 05:09 Neut # (Auto) 4.6 x10^3/uL (2.2-4.8) 04/22/20 05:09 Lymph # (Auto) 1.1 X10^3/uL (1.3-2.9) L 04/22/20 05:09 [place] # (Auto) 0.8 x10^3/uL (0.3-0.8) 04/22/20 05:09 Eos # (Auto) 0.1 x10^3/uL (0.0-0.2) 04/22/20 05:09 Baso # (Auto) 0.0 X10^3/uL (0.0-0.1) 04/22/20 05:09 Absolute Nucleated RBC 0.0 /100WBC 04/22/20 05:09 PT 13.3 SECONDS (11.8-14.3) 04/15/20 18:24 INR Target Range - 04/15/20 18:24 INR 1.04 (0.8-1.3) 04/15/20 18:24 Sodium 133 mmol/L (136-145) L 04/22/20 05:09 Corrected Sodium TNP 04/22/20 05:09 Potassium 4.1 mmol/L (3.5-5.1) 04/22/20 05:09 Chloride 103 mmol/L (98-107) 04/22/20 05:09 Carbon Dioxide 19.4 mmol/L (21-32) L 04/22/20 05:09 BUN 31 mg/dL (7-18) H 04/22/20 05:09 Creatinine 3.15 mg/dL (0.55-1.02) H 04/22/20 05:09 Est GFR (MDRD) Af Amer 18 (>60) L 04/22/20 05:09 Est GFR (MDRD) Non-Af 15 (>60) L 04/22/20 05:09 Glucose 92 mg/dL (65-99) 04/22/20 05:09 POC Glucose (mg/dL) 160 mg/dL (65-99) H 04/22/20 15:52 Calcium 8.8 mg/dL (8.5-10.1) 04/22/20 05:09 Corrected Calcium 10.0 mg/dL (8.5-10.1) 04/22/20 05:09 Magnesium 2.7 mg/dL (1.7-2.9) 04/16/20 04:10 Total Bilirubin 0.30 mg/dL (0.2-1.0) 04/22/20 05:09 AST 13 Units/L (15-37) L 04/22/20 05:09 ALT 10 Units/L (12-78) L 04/22/20 05:09 Alkaline Phosphatase 63 Units/L (46-116) 04/22/20 05:09 Creatine Kinase 37 Units/L (26-192) 04/16/20 04:10 CK-MB (CK-2) 1.3 ng/mL (0-4.0) 04/16/20 04:10 CK/CKMB % Calc 3.5 % (<4) 04/16/20 04:10 Troponin I 0.04 ng/mL (0-1.5) 04/16/20 04:10 B-Natriuretic Peptide 3610 pg/mL (0-79) H* 04/15/20 18:24 Total Protein 5.5 g/dL (6.4-8.2) L 04/22/20 05:09 Albumin 2.5 g/dL (3.4-5.0) L 04/22/20 05:09 Globulin 3.0 g/dL (2.5-4.5) 04/22/20 05:09 Albumin/Globulin Ratio 0.8 Ratio (1.1-2.1) L 04/22/20 05:09 Triglycerides 152 mg/dL (0-150) H 04/16/20 04:10 Cholesterol Cancelled 04/16/20 04:10 LDL Cholesterol, Calc Cancelled 04/16/20 04:10 HDL Cholesterol 42 mg/dL (40-60) 04/16/20 04:10 Cholesterol/HDL Ratio Cancelled 04/16/20 04:10 Specimen Type Catherized urine 04/15/20 20:52 Urine Color Yellow (YELLOW) 04/15/20 20:52 Urine Appearance Clear (CLEAR) 04/15/20 20:52 Urine pH 7.0 (5.0 - 8.0) 04/15/20 20:52 Ur Specific [place] 1.010 (1.000-1.030) 04/15/20 20:52 Urine Protein 4+ (NEGATIVE) 04/15/20 20:52 Urine Glucose (UA) 1+ (NEGATIVE) 04/15/20 20:52 Urine Ketones Negative (NEGATIVE) 04/15/20 20:52 Urine Occult Blood Negative (NEGATIVE) 04/15/20 20:52 Urine Nitrite Negative (NEGATIVE) 04/15/20 20:52 Urine Bilirubin Negative (NEGATIVE) 04/15/20 20:52 Urine Urobilinogen Normal (NORMAL) 04/15/20 20:52 Ur Leukocyte Esterase Negative (NEGATIVE) 04/15/20 20:52 Urine RBC 0-2 /HPF (0-3) 04/15/20 20:52 Urine WBC 0-2 /HPF (0-5) 04/15/20 20:52 Ur Squamous Epith Cells Few /HPF (NEGATIVE) 04/15/20 20:52 Urine Bacteria Negative /HPF (NEGATIVE) 04/15/20 20:52 Ur Culture Indicated? No/not indicated 04/15/20 20:52 - Plan (1) CHF (congestive heart failure) Status: Acute Qualifiers: Heart failure type: unspecified Heart failure chronicity: acute on chronic Qualified Code(s): I50.9 - Heart failure, unspecified Plan: BB, ASPIRIN, CARDIAC MONITORING. DAILY CBC CMP, STRICT I& OS. 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
[2020-04-23] MEDS: NS 1000 ML 1,000 ML IV SCH (03:09)
[2020-04-23] MEDS: PROVENTIL NEB TX 0.083% 2.5MG/ 3ML NEB SCH ×2 (05:45→12:12)
[2020-04-23] MEDS: APRESOLINE TAB 25 MG PO SCH ×2 (05:54→14:45)
[2020-04-23 07:10] LABS: EOSINOPHILS # (AUTO) 0.1 x10^3/uL (0.0-0.2); EOSINOPHILS % (AUTO) 1.8 % (0.9-2.9); HEMATOCRIT 42.6 % (36.0-47.0); HEMOGLOBIN 13.9 g/dL (12.0-16.0); LYMPHOCYTES # (AUTO) 1.2 X10^3/uL (1.3-2.9); MEAN CORPUSCULAR HEMOGLOBIN 30.9 pg (27.0-34.0); MEAN CORPUSCULAR HGB CONC 32.6 g/dL (33.0-35.0); MEAN CORPUSCULAR VOLUME 94.7 fL (80.0-100.0); MEAN PLATELET VOLUME 7.6 fL (7.4-11.0); MONOCYTES # (AUTO) 0.6 x10^3/uL (0.3-0.8); MONOCYTES % (AUTO) 11.4 % (0.0-13.0); NEUTROPHILS % (AUTO) 61.8 % (42.0-75.0); PLATELET COUNT 290 X10^3/uL (150.0-450.0); RED BLOOD COUNT 4.49 X10^6/uL (3.5-5.4); RED CELL DISTRIBUTION WIDTH 17.4 % (11.6-16.5); WHITE BLOOD COUNT 4.9 X10^3/uL (3.6-10.0)
--- NOTE | 2020-04-23 07:22 | RAD ---
HISTORYPleural effusionSTUDYAP [id number] size is stable, mild cardiomegaly. Persistent bilateral pleural-parenchymal densities consistent with airspace disease and pleural effusions. The extreme upper lobes remain clear.IMPRESSIONNo change since 1 day prior. Findings described remain consistent with perivascular edema and pleural fluid collections.Electronically signed by: ELANA KRAMER (Apr 23, 2020 07:21:14)
[2020-04-23 07:26] LABS: ALANINE AMINOTRANSFERASE 13 Units/L (12-78); ALBUMIN 2.2 g/dL (3.4-5.0); ALKALINE PHOSPHATASE 60 Units/L (46-116); ASPARTATE AMINO TRANSFERASE 17 Units/L (15-37); BLOOD UREA NITROGEN 30 mg/dL (7-18); CALCIUM 8.3 mg/dL (8.5-10.1); CARBON DIOXIDE 21.7 mmol/L (21-32); CHLORIDE 104 mmol/L (98-107); COR CA(FOR HYPOALB) 9.7 mg/dL (8.5-10.1); CREATININE 2.99 mg/dL (0.55-1.02); SODIUM 135 mmol/L (136-145); TOTAL PROTEIN 5.1 g/dL (6.4-8.2); eGFR NON BLACK RACES 16 (>60)
[2020-04-23] MEDS ORDERED: NS 1000 ML 1,000 ML IV ONE (07:29)
[2020-04-23] MEDS: PULMICORT NEB TX 0.5 MG NEB SCH (08:59)
[2020-04-23] MEDS: ASPIRIN PO SCH (09:28)
[2020-04-23] MEDS: COREG TAB 12.5 MG PO SCH (09:29)
[2020-04-23] MEDS: PROCARDIA XL PO SCH (09:33)
[2020-04-23] MEDS: COZAAR PO SCH (09:34)
[2020-04-23] MEDS: PROTONIX TAB 40 MG PO SCH (09:34)
[2020-04-23] MEDS: NIASPAN ER TAB 500 MG PO SCH (09:35)
[2020-04-23] MEDS: NITRODUR PATCH 0.4 MG/HR TD SCH (09:39)
[2020-04-23] MEDS: LASIX IVP SCH (09:40)
[2020-04-23] MEDS: LOVENOX INJ 30 MG SYR SC SCH (09:40)
[2020-04-23] MEDS: MORPHINE SULFATE INJ 2 MG INJ IVP PRN (10:50)
[2020-04-23 13:57] VITALS: BP 154/67
[2020-04-23] MEDS ORDERED: COLACE CAP 100 MG PO ONE (14:38)
[2020-04-23] MEDS ORDERED: DULCOLAX SUPPOSITORY 10 MG ONE (14:38)
[2020-04-23] MEDS ORDERED: MILK OF MAGNESIA ONE (14:39)
[2020-04-23] MEDS ORDERED: MILK OF MAGNESIA PO SCH (15:00)
[2020-04-23] MEDS ORDERED: COLACE CAP 100 MG PO SCH (21:00)
--- NOTE | 2020-04-24 16:43 | PCM.PROG ---
Progress Note - Progress Note for Day of Date of Exam: 04/20/20 - Subjective Subjective: IS BEING TREATED FOR CHF, ACUTE ON CHRONIC RENAL FAILURE, AND CHEST PAIN RULE OUT ACUTE NC. TODAY, SHE IS ALERT AND OREINTED, LYING IN BED ON MORNING ROUNDS. SHE CONTINUES WITH COMPLAINTS OF WEAKNESS TODAY AND SHORTNESS OF BREATH. ON EXAMINATION, HEART IS REGULAR IN RATE AND RHYTHM. BILATERAL LUNGS ARE NOTED WITH DIMINISHED LUNG SOUNDS THROUGHOUT. ABDOMEN IS ROUND, SOFT, AND NON-TENDER WITH NORMAL BOWEL SOUNDS NOTED IN ALL QUADRANTS. BILATERAL LOWER EXTREMITIES ARE NOTED WITH TRACE EDEMA. HER VITALS THIS MORNING ARE: 97.9-70-18-93%-139/62. LABS WERE OBTAINED. ABNORMAL LAB VALUES INCLUDE THE FOLLOWING: SODIUM 134, CARBON DIOXIDE 20.0, BUN 345, CREATININE 3.08, GLUCOSE 100, CORRECTED CALCIUM 10.4, TOTAL PROTEIN 5.8, ALBUMIN 1.8. A CHEST XRAY WAS OBTAINED AND REVEALED: Slight progressively worsening right-sided pleural effusion is seen with overall worsening alveolar airspace disease in the bilateral mid and lower lung zones. SHE IS CURRENTLY RECEIVING NORMAL SALINE AT 75 ML/HR, LOVENOX 30MG SC DAILY, ZOFRAN 4MG IV Q8H PRN, MORPINE 1-2MG IV Q4H PRN, NEB TX BID, AND HER HOME MEDICATIONS WERE RESUMED. TODAY, WE WILL START ALBUMIN 25% IV DAILY. WE WILL START LASIX 20MG IV Q12H TOMORROW. OTHERWISE, WE WILL FOLLOW UP WITH AM LABS AND CHEST XRAY AND CONTINUE TO MONITOR. - Past Medical Family Social History Past Med/Fam/Surg Hx: No changes since H&P Allergies: Allergies codeine Allergy (Intermediate, Verified 03/02/20 14:12) meperidine [From Demerol] Allergy (Verified 03/20/19 11:20) - Review of Systems ROS: No change since H&P - Vital Signs and I&O's Vital Signs: Temperature 98 F Pulse Rate [Left Radial] 74 Pulse Rate 88 Respiratory Rate 18 Blood Pressure [Left Arm] 170/69 Blood Pressure [Right Arm] 154/67 Blood Pressure 162/65 O2 Sat by Pulse Oximetry 95 Intake and Output: Intake & Output 04/22/20 04/23/20 04/24/20 04/25/20 11:59 11:59 11:59 11:59 Intake Total 2069 400 / 400 Balance 2069 400 / 400 - Physical Exam Oriented: Normal Eyes: Normal Ear: Normal Nose: Normal Throat: Normal Respiratory: Generalized, Diminished Cardiovascular: Edema (BLE TRACE EDEMA ) : Normal Auscultation: Bowel Sounds: Normal Palpation: Normal Tenderness: Normal Skin: Normal Musculoskeletal: Normal Psychiatric: Normal Mood Description: Calm Affect: Normal Speech Pattern: Clear, Appropriate - Laboratory and Diagnostics Result Diagrams: 04/23/20 05:44 04/23/20 05:44 Labs: Laboratory WBC 4.9 X10^3/uL (3.6-10.0) 04/23/20 05:44 RBC 4.49 X10^6/uL (3.5-5.4) 04/23/20 05:44 Hgb 13.9 g/dL (12.0-16.0) 04/23/20 05:44 Hct 42.6 % (36.0-47.0) 04/23/20 05:44 MCV 94.7 fL (80.0-100.0) 04/23/20 05:44 MCH 30.9 pg (27.0-34.0) 04/23/20 05:44 MCHC 32.6 g/dL (33.0-35.0) L 04/23/20 05:44 RDW 17.4 % (11.6-16.5) H 04/23/20 05:44 Plt Count 290 X10^3/uL (150.0-450.0) 04/23/20 05:44 MPV 7.6 fL (7.4-11.0) 04/23/20 05:44 Neut % (Auto) 61.8 % (42.0-75.0) 04/23/20 05:44 Lymph % (Auto) 24.0 % (21.0-51.0) 04/23/20 05:44 [place] % (Auto) 11.4 % (0.0-13.0) 04/23/20 05:44 Eos % (Auto) 1.8 % (0.9-2.9) 04/23/20 05:44 Baso % (Auto) 1.0 % (0.2-1.0) 04/23/20 05:44 Neut # (Auto) 3.0 x10^3/uL (2.2-4.8) 04/23/20 05:44 Lymph # (Auto) 1.2 X10^3/uL (1.3-2.9) L 04/23/20 05:44 [place] # (Auto) 0.6 x10^3/uL (0.3-0.8) 04/23/20 05:44 Eos # (Auto) 0.1 x10^3/uL (0.0-0.2) 04/23/20 05:44 Baso # (Auto) 0.0 X10^3/uL (0.0-0.1) 04/23/20 05:44 Absolute Nucleated RBC 0.0 /100WBC 04/23/20 05:44 PT 13.3 SECONDS (11.8-14.3) 04/15/20 18:24 INR Target Range - 04/15/20 18:24 INR 1.04 (0.8-1.3) 04/15/20 18:24 Sodium 135 mmol/L (136-145) L 04/23/20 05:44 Corrected Sodium TNP 04/23/20 05:44 Potassium 3.6 mmol/L (3.5-5.1) 04/23/20 05:44 Chloride 104 mmol/L (98-107) 04/23/20 05:44 Carbon Dioxide 21.7 mmol/L (21-32) 04/23/20 05:44 BUN 30 mg/dL (7-18) H 04/23/20 05:44 Creatinine 2.99 mg/dL (0.55-1.02) H 04/23/20 05:44 Est GFR (MDRD) Af Amer 19 (>60) L 04/23/20 05:44 Est GFR (MDRD) Non-Af 16 (>60) L 04/23/20 05:44 Glucose 89 mg/dL (65-99) 04/23/20 05:44 POC Glucose (mg/dL) 81 mg/dL (65-99) 04/23/20 05:34 Calcium 8.3 mg/dL (8.5-10.1) L 04/23/20 05:44 Corrected Calcium 9.7 mg/dL (8.5-10.1) 04/23/20 05:44 Magnesium 2.7 mg/dL (1.7-2.9) 04/16/20 04:10 Total Bilirubin 0.20 mg/dL (0.2-1.0) 04/23/20 05:44 AST 17 Units/L (15-37) 04/23/20 05:44 ALT 13 Units/L (12-78) 04/23/20 05:44 Alkaline Phosphatase 60 Units/L (46-116) 04/23/20 05:44 Creatine Kinase 37 Units/L (26-192) 04/16/20 04:10 CK-MB (CK-2) 1.3 ng/mL (0-4.0) 04/16/20 04:10 CK/CKMB % Calc 3.5 % (<4) 04/16/20 04:10 Troponin I 0.04 ng/mL (0-1.5) 04/16/20 04:10 B-Natriuretic Peptide 3610 pg/mL (0-79) H* 04/15/20 18:24 Total Protein 5.1 g/dL (6.4-8.2) L 04/23/20 05:44 Albumin 2.2 g/dL (3.4-5.0) L 04/23/20 05:44 Globulin 2.9 g/dL (2.5-4.5) 04/23/20 05:44 Albumin/Globulin Ratio 0.8 Ratio (1.1-2.1) L 04/23/20 05:44 Triglycerides 152 mg/dL (0-150) H 04/16/20 04:10 Cholesterol Cancelled 04/16/20 04:10 LDL Cholesterol, Calc Cancelled 04/16/20 04:10 HDL Cholesterol 42 mg/dL (40-60) 04/16/20 04:10 Cholesterol/HDL Ratio Cancelled 04/16/20 04:10 Specimen Type Catherized urine 04/15/20 20:52 Urine Color Yellow (YELLOW) 04/15/20 20:52 Urine Appearance Clear (CLEAR) 04/15/20 20:52 Urine pH 7.0 (5.0 - 8.0) 04/15/20 20:52 Ur Specific [place] 1.010 (1.000-1.030) 04/15/20 20:52 Urine Protein 4+ (NEGATIVE) 04/15/20 20:52 Urine Glucose (UA) 1+ (NEGATIVE) 04/15/20 20:52 Urine Ketones Negative (NEGATIVE) 04/15/20 20:52 Urine Occult Blood Negative (NEGATIVE) 04/15/20 20:52 Urine Nitrite Negative (NEGATIVE) 04/15/20 20:52 Urine Bilirubin Negative (NEGATIVE) 04/15/20 20:52 Urine Urobilinogen Normal (NORMAL) 04/15/20 20:52 Ur Leukocyte Esterase Negative (NEGATIVE) 04/15/20 20:52 Urine RBC 0-2 /HPF (0-3) 04/15/20 20:52 Urine WBC 0-2 /HPF (0-5) 04/15/20 20:52 Ur Squamous Epith Cells Few /HPF (NEGATIVE) 04/15/20 20:52 Urine Bacteria Negative /HPF (NEGATIVE) 04/15/20 20:52 Ur Culture Indicated? No/not indicated 04/15/20 20:52 - Plan (1) CHF (congestive heart failure) Status: Acute Qualifiers: Heart failure type: unspecified Heart failure chronicity: acute on chronic Qualified Code(s): I50.9 - Heart failure, unspecified Plan: LASIX 20MG IV Q12H, ASPIRIN, CARDIAC MONITORING. DAILY CBC CMP, STRICT I& OS. SUPPLEMENTAL O2, BP CONTROL (2) Renal failure (ARF), acute on chronic Status: Acute Qualifiers: Acute renal failure type: unspecified Chronic kidney disease stage: unspecified stage Qualified Code(s): N17.9 - Acute kidney failure, unspecified; N18.9 - Chronic kidney disease, unspecified Plan: NORMAL SALINE AT 75 ML/HR (3) Chest pain, rule out acute myocardial infarction Status: Acute Plan: SERIAL CARDIAC ENZYMES AND EKGS, CONTINUE TO MONITOR
== END 2020-04-23 16:50 | disposition home or self-care (01) | DRG 292 ==
LOC: ER 17:05 → MED/SURG 20:38
PROVIDERS: ADMIT Internal Medicine; ATTEND Internal Medicine
CPT/HCPCS: 36415; 51702; 71010; 71045; 80048; 80053; 80061; 81001; 82550; 82553; 83735; 83880; 84478; 84484; 85025; 85610; 93005; 93970; 94640; 94760; 96365; 96374; 96375; 97110; 97163; 97166; 97530; 97535; 99284; A4216; A4222; J1650; J1885; J1940; J2270; J2405; J3490; J7030; J7613; J7626; P9047